=== PATIENT | female | born 1965 | race American Indian/Alaskan Native ===

== ENCOUNTER 2017-09-16 17:14 | Inpatient (IN) | payer BC, OTHER ==
[~2017-09-16] VITALS: Ht 165.1 cm; Wt 88.9 kg
[~2017-09-16 17:14] MED LIST: ASPIRIN EC81 MG PO; CALCIUM 500 +1 EAC1 PO; CITRUCEL479 GM PO; CITRUCEL500 MG PO; FISH OIL 1,0001 EAC2 PO; IBUPROFEN400 MG PO; LISINOPRIL10 MG PO; LOPERAMIDE2 M1; METFORMIN HCL500 MG PO; NORCO 10-325 T1 EACH PO; NORCO 5-325 TA1 EACH PO; OXYCODONE HCL5 MG PO; PROBIOTIC1 EAC1 PO; PROVERA10 MG PO; VITAMIN B122500 MCG PO; VITAMIN D5000 UNIT PO
--- NOTE | 2017-09-16 22:01 | NUR ---
PT ARRIVED ON FLOOR VIA STRETCHER AT 2104. PT ABLE TO INDEPENDANTLY AMBULATE TO THE BED FROM THE STRETCHER. PT ALERT AND ORIENTED X4. PLEASENT DEMEANOR. COMPLAINS OF PAIN "WHEN I FIRST SIT DOWN," OTHERWISE NO PAIN AT THIS TIME. NO NAUSEA. IV WNL, AND INFUSING FLUIDS. FAMILY ACCOMPANIED PT TO ROOM, BUT HAS SINCE GONE HOME. PT ORIENTED TO ROOM. UNDERSTANDS SHE IS NPO AND WHAT THAT CONSISTS OF. CALL LIGHT IN REACH.
--- NOTE | 2017-09-16 22:15 | NUR ---
RESUMED CARE OF PATIENT FROM [facility]. RECEIVED REPORT FROM [facility]. PATIENT IS RESTING IN BED WITH EYES CLOSED. BREATHING IS EVEN AND UNLABORED, RR 17. CALL LIGHTIN REACH.
--- NOTE | 2017-09-16 23:06 | NUR ---
STANDBY ASSISTED THE PATIENT TO THE BATHROOM AND BACK TO BED. WARM BLANKET GIVEN. CALL LIGHT WITHIN REACH.
--- NOTE | 2017-09-16 23:07 | NUR ---
UP AND DOWN DENTURE SOAK IN THE CONTAINER.
--- NOTE | 2017-09-17 00:34 | NUR ---
PATIENT DENIES ANY PAIN OR NAUSEA AT THIS TIME. PATIENT IS RESTING IN BED. CALL LIGHT IN REACH. NO FURTHER NEEDS NOTED AT THIS TIME.
--- NOTE | 2017-09-17 02:05 | NUR ---
PATIENTS VITALS TAKEN AND RECORDED. PATIENT RATES PAIN AT A 3/10 AND DENIES THE NEED FOR PAIN MEDICATION. PATIENT DENIES ANY NAUSEA AT THIS TIME. CALL LIGHT IN REACH.
--- NOTE | 2017-09-17 03:34 | NUR ---
PATIENT ASSISTED TO THE RESTROOM A SBA. PATIENT IS NOW BACK IN BED RESTING. PATIENT DENIES ANY NAUSEA. PATIENT RATES PAIN AT A 6/10. PRN PAIN MEDICATION GIVEN PER ORDER. PATIENT DENIES ANY FURTHER NEEDS AT THIS TIME. CALL LIGHT IN REACH.
--- NOTE | 2017-09-17 04:49 | NUR ---
PATIENT HAS RESTED WELL SINCE ARRIVING TO THE FLOOR. PATIENT HAS BEEN NPO SINCE ARRIVAL. PATIENT HAS DENIED ANY NAUSEA. PATIENT RECEIVED X1 PRN PAIN MEDICATION. PATIENT IS A SBA. PATIENT IS AAOX3. PATIEN HAS SCDS. PATIENT USES CALL LIGHT APPROPRIATELY.
--- NOTE | 2017-09-17 05:37 | NUR ---
PATIENTS MORNING VITALS TAKEN. PATIENT COMPLAINS OF A HEADACHE. PATIENT IS NPO AT THIS TIME. PATIENT GIVEN WET WASH RAG AND APPLIED TO FOREHEAD. PATIENT DENIES ANY ABD PAIN. PATIENT DENIES ANY NAUSEA. PATIENTS 0500 MEDICATIONS GIVEN PER ORDER. NO FURTHER NEEDS AT THIS TIME. CALL LIGHT IN REACH.
--- NOTE | 2017-09-17 09:50 | NUR ---
PT REPORTS NAUSEA. ZOFRAN GIVEN. ASSISTED UP TO BATHROOM TO VOID. NO VOID SINCE BEFORE 0600. WILL REASSESS.
--- NOTE | 2017-09-17 09:55 | NUR ---
PATIENT RESTING IN BED WATCHING TV. ORAL CARE DONE. HANDS AND FACE WASHED. WOULD LIKE TO SHOWER. CALL BUTTON IN REACH. FAMILY IN ROOM.
--- NOTE | 2017-09-17 10:45 | NUR ---
PATIENT UP TO SHOWER WITH HIBBA CLEANSE. LINENES CHANGED.
--- NOTE | 2017-09-17 11:14 | HP ---
[facility] [address], [place] [address] Signed ADMISSION DATE: 09/16/2017 REASON FOR ADMISSION: This 52-year-old Afghan woman, presented to the emergency room with right-sided abdominal pain. She was evaluated by Dr. Eid where she was found to have tenderness in the region of a right-sided mid-abdominal incision from ileostomy takedown by Dr. Pina in the past. This repair was done about three months ago. Further evaluation include gallbladder ultrasound, which showed large gallstones. On the consideration, this may more likely represent acute cholecystitis. She is admitted for further evaluation and care. It is notable that she had a rectal cancer diagnosed by Dr. Pina in 2014. She apparently was referred to [place], [place] for definitive management of a low rectal cancer. From what I can gather from her history, she had chemo and radiation neoadjuvant therapy, subsequently very low anterior resection with anastomosis and a protective ileostomy. She developed what sounds like she had takedown of the ileostomy by Dr. Pina. She developed a hernia at that site on the right abdomen, which was repaired by Dr. Pina on June 19, 2017, with implantation of Ventralex mesh. Notes from Dr. Pina reveal her operative intervention had included laparoscopic and transanal total proctectomy with hand-sewn coloanal anastomosis, mobilization of splenic flexure and protective loop ileostomy. There were seven regional lymph nodes all negative. She had later developed an umbilical and supraumbilical trocar site hernia, which was repaired and the right-sided ileostomy takedown site developed hernia, which Dr. Pina repaired as well. It is notable that the patient still has episodes of episodic incontinence. She uses loperamide and Citrucel. Currently, her pain is in the right upper abdomen and radiates to the back of it. She has no nausea or vomiting. Her evaluation included a normal white count of 5.0, hematocrit 34.8. A chemistry profile, which was essentially normal including normal liver enzymes and urinalysis, which was normal. 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 She is not and has no children. She lives in [place]. REVIEW OF SYSTEMS: She denies any shortness of breath or chest pain. She has had no dysphagia or dysuria. Denies any hematemesis or blood per rectum. Electronically Signed By: MEGA AGRAWAL MD 09/17/17 1114 PATIENT NAME: BRYANNA MAC HISTORY AND PHYSICAL DATE OF : 65 PHYSICIAN: MEGA AGRAWAL MD REPORT #: [id number] REPORT IS CONFIDENTIAL AND NOT TO BE RELEASED WITHOUT AUTHORIZATION [facility] [address], [place] [address] Signed PHYSICAL EXAMINATION: GENERAL: Obese Afghan woman, who looks to be in no severe distress at this time. HEENT: Trachea is midline. Mucous membranes are moist. CHEST: Clear. HEART: Regular. ABDOMEN: Obese, but soft. There is a supraumbilical healed incision with no associated hernia and a right mid-abdominal transverse incision, which shows no sign of infection. She has tenderness in the right subcostal area. EXTREMITIES: Show no clubbing, cyanosis, or edema. LABORATORY STUDIES: As described. Ultrasound performed at 7:15 last night confirms multiple gallstones in the gallbladder. Review of the images myself confirms a normal-appearing liver and gallbladder with stone and stone debris. ASSESSMENT: She has acute cholecystitis related to her gallstones. I have discussed with her the pathophysiology of the problem. I would recommend cholecystectomy. Laparoscopic approach would be preferred though depending on scar tissue and so forth she may require an open procedure. The risks of bleeding, infection, bile duct injury, need for open procedure and of course failure to cure her symptoms were reviewed in detail. As regard to her episodic fecal incontinence, further measures can be undertaken to improve that at a later time. MD ALYSON Wick/MODL /[id number] cc: Tamar Eid MD Electronically Signed By: MEGA AGRAWAL MD 09/17/17 1114 PATIENT NAME: BRYANNA MAC HISTORY AND PHYSICAL DATE OF : 65 PHYSICIAN: MEGA AGRAWAL MD REPORT #: [id number] REPORT IS CONFIDENTIAL AND NOT TO BE RELEASED WITHOUT AUTHORIZATION [facility] [address], [place] [address] Signed Shon Pina MD Electronically Signed By: MEGA AGRAWAL MD 09/17/17 1114 PATIENT NAME: BRYANNA MAC HISTORY AND PHYSICAL DATE OF : 65 PHYSICIAN: MEGA AGRAWAL MD REPORT #: [id number] REPORT IS CONFIDENTIAL AND NOT TO BE RELEASED WITHOUT AUTHORIZATION
--- NOTE | 2017-09-17 15:07 | NUR ---
09/17/17 Alissa7 Marilou Garay 1503-PATIENT ARRIVED TO PACU ON 6L MASK O2 SAT 100% PATIENT NONAROUSABLE. 4 LAP SITES TO ABDOMEN CDI STERI STRIPS CHANGED IN OR. 1505-ORAL AIRWAY REMOVED. PATIENT REACTIVE.
--- NOTE | 2017-09-17 15:46 | NUR ---
PATIENT BACK TO ROOM FROM OR. RN RECIEVING REPORT IN ROOM.
--- NOTE | 2017-09-17 15:52 | NUR ---
pt back to room 123 at 1545. lap sites x 4. pt is lethargic. will advance diet as tolerated.
--- NOTE | 2017-09-17 18:18 | NUR ---
LAP NIYA SURGERY TODAY. LAP SITES X4. PT NAUSEOUS AFTER SURGERY. EMESIS GREEN BILE 150CC. ICE CHIPS AT BEDSIDE. SBA-1PA. NOT OUT OF BED AFTER SURGERY. DUE TO VOID. FAMILY AT BEDSIDE. IVF @ 85.
--- NOTE | 2017-09-17 19:59 | NUR ---
RECEIVED REPORT FROM DAY SHIFT RN. PATIENT IS RESTINGIN BED. PATIENT DENIES PAIN OR NAUSEA. CALL LIGHT IN REACH.
--- NOTE | 2017-09-17 21:01 | NUR ---
PATIENT ASSESMENT COMPLETED. PATIENTS EVENING MEDICATIONS GIVEN PER ORDER. PATIENT RATES PAIN AT A 4/10. PATIENT GIVEN PRN MOTRIN PER ORDER. PATIENT HAS X4 LAP SITES. PATIENTS UPPER SITE HAS A SMALL AMOUNT OF DRAINAGE. SITE REINFORCED WITH GAUZE. PATIENT DENIES ANY NAUSEA. PATIENT PROVIDED WITH JELLO. PATIENT DENIES ANY NAUSEA. PATIENT HAS SCDS IN PLACE. PATIENT HAS GOOD URINE OUTPUT. PATIENT DENIES ANY FURTHER NEEDS. PATIENT IS AAOX3. PATIENTS CALL LIGHT IN REACH.
--- NOTE | 2017-09-17 23:05 | NUR ---
PATIENT IS RESTING IN BED WITH EYES CLOSED, RR 17. VIC LIGHT IN REACH.
--- NOTE | 2017-09-18 01:07 | NUR ---
PATIENT REQUESTED TO GET UP AND USE THE RESTROOM. PATIENT BECAME NAUSEOUS AND HAD A BOUT OF EMESIS. PATIENTS EMESIS TOLTALED 25ML. PATIENT GIVEN PRN NAUSEA MEDICATION PER ORDER. PATIENT IS REQUESTING TO WAIT TO GET UP AND USE THE RESTROOM. WILL CONTINUE TO MONITOR. CALL LIGHT IN REACH. PATIENT VERBALIZED SHE WILL CALL WHEN SHE IS READY.
--- NOTE | 2017-09-18 03:02 | NUR ---
PATIENT IS RESTING IN BED WITH EYES CLOSED, RR 18. CALL LIGHT IN REACH.
--- NOTE | 2017-09-18 05:17 | NUR ---
PATIENT RESTED WELL THROUGHOUT THE SHIFT. PATIENT RECEIVED MOTRIN X1 FOR PAIN. PATIENT DID HAVE EMESIS X2 FOR A TOTAL OUPUT OF 75ML. PATIENT IS A 1PA. PATIENT HAS SCDS IN PLACE. PATIENT HAS X4 LAP SITES AND UPPER SITE HAS A SMALL AMOUNT OF DRAINAGE AND IT WAS REINFORCED. PATIENT GIVEN PRN NAUSEA MEDICATION. PATIENT IS AAOX3. PATIENT WAS ABLE TO TOLERATE JELLO ONLY.
--- NOTE | 2017-09-18 06:36 | NUR ---
PATIENT ASSISTED TO THE RESTROOM. PATIENT IS A SBA. PATIENTS MORNING MEDICATIONS GIVEN PER ORDER. PATIENT REQUESTED THE MOTRIN. PATIENT GIVEN PRN MOTRIN PER ORDER. PATIENT DENIES ANY NAUSEA. PATIENTS X4 LAP SITES HAVE NO NEW DRAINAGE. PATIENT IS NOW BACK IN BED RESTING WITH SCDS IN PLACE. NO FURTHER NEEDS NOTED. CALL LIGHT ON REACH.
--- NOTE | 2017-09-18 07:35 | NUR ---
PATIENT UP TO CHAIR WITH ONE PERSON ASSIST. ORAL CARE AND LINEN CHANGE DONE. PATIENT WASHED HANDS AND FACE. PATIENT HAD EMESIS. RN IN ROOM. CALL BUTTON IN REACH.
--- NOTE | 2017-09-18 07:45 | NUR ---
PATIENT SITTING IN CHAIR. TOLERATED AMBULATION TO CHAIR. STATING THAT SHE IS FEELING NAUSEATED. HAVING 100MLS OF YELLOW EMESIS OUT. PATIENT C/O BURPING AND UPPER ABD PRESSURE. ZOFRAN GIVEN ON SANDBLAST OPERATOR. WASH CLOTHING GIVEN TO PATIENT. ORAL CARE DONE. CALLED DR. AGRAWAL FOR UPDATE ON PATIENT AND NEW ORDER FOR PHENERGAN.
--- NOTE | 2017-09-18 08:00 | NUR ---
PHENERGAN GIVEN. PATIENT STATING NAUSEA IS STILL THERE BUT SHE DOESNT FEEL LIKE SHE HAS ANYMORE TO VOMIT. ASSESSMENT COMPLETE. LAP SITES PRESENT. C/D/I. PIPE INSULATOR REINFORCED UPPER UMBILICOUS LAP SITE. SCD WHILE IN BED. BREAKFAST TO CHAIRSIDE IN WAIT OF NAUSEA TO IMPROVE.
--- NOTE | 2017-09-18 08:55 | NUR ---
PATIENT CURRENTLY RESTING WITH EYES CLOSED. RR EVEN UNLABORED. CALL LIGHT WITHIN REACH.
--- NOTE | 2017-09-18 09:37 | NUR ---
ASSISTED PATIENT FROM CHAIR TO BR AND BACK TO BED. TOLERATING TRANSFER WELL. NAUSEA HAS IMPROVED. PATIENT WAS ABLE TO EAT 100 PERCENT OF BREAKFASRT. PATIENT STATING PAIN CURRENTLY 5-6/10 GAVE 1 TAB OXY FOR PAIN. TOOK WITH CRACKERS FOR NAUSEA.
--- NOTE | 2017-09-18 09:58 | NUR ---
PATIENT RESTING IN BED WITH EYES CLOSED.
--- NOTE | 2017-09-18 11:28 | NUR ---
patient sleeping at this time. rr even and unlabored.
--- NOTE | 2017-09-18 11:45 | NUR ---
PATIENT AMBULATED ONE LAP IN GIRARD. TOLERATING AMBULATION WELL. ASSISTED TO CHAIR TO ORDER LUNCH.
--- NOTE | 2017-09-18 11:54 | OR ---
[facility] [address], [place] [address] Signed DATE OF OPERATION: 09/17/2017 SURGEON: Mega Agrawal MD PREOPERATIVE DIAGNOSES: 1. Acute calculous cholecystitis. 2. Morbid obesity. 3. History of very low anterior resection for rectal cancer in 2015. POSTOPERATIVE DIAGNOSIS: Severe acute calculous cholecystitis. PROCEDURES: 1. Laparoscopic cholecystectomy with intraoperative cholangiogram. 2. Surgeon-directed fluoroscopy. ANESTHESIA: General endotracheal, Ronaldo Gaetano, JEWELRY MAKING INSTRUCTOR and local 20 mL of 0.25% Marcaine with epinephrine. INDICATION: This 52-year-old obese woman was admitted last night through the emergency room with right upper abdominal pain. She has a distant history of low rectal carcinoma, initially evaluated by Dr. Pina, and referred to [facility] for definitive treatment including chemoradiation therapy, low anterior resection with diverting ileostomy, and ultimately takedown of the ileostomy. She has undergone two incisional hernia repairs, one in the supraumbilical area by Dr. Pina and the other in the site of the right-sided ileostomy. Her last operation was in June a year ago. She is noted to have right upper abdominal pain at this point and tenderness and an ultrasound of the gallbladder shows multiple gallstones. Her liver enzymes are normal. She is admitted to undergo cholecystectomy preferred by laparoscopic approach understanding the risks of bleeding, infection, bile duct injury, need for open procedure, and other unforeseen complications including retained gallstone, need for common duct exploration, and so on. I understand that she wished to proceed. FINDINGS: The gallbladder was tensed and markedly inflamed. The liver was normal. Cholecystectomy was performed without complication. Cholangiogram showed free flow of contrast in biliary tree with prompt emptying into the duodenum. There were few vague mid common duct areas that I initially thought may be stones, but with movement of the fluoroscope Electronically Signed By: MEGA AGRAWAL MD 09/18/17 3518 PATIENT NAME: BRYANNA MAC OPERATIVE REPORT DATE OF : 65 PHYSICIAN: MEGA AGRAWAL MD REPORT #: [id number] REPORT IS CONFIDENTIAL AND NOT TO BE RELEASED WITHOUT AUTHORIZATION [facility] [address], [place] [address] Signed and so forth, it appeared that this was merely the overlain of the base of the vertebra and not stone. Certainly, there was no mobility to this area at all. There was no impediment of flow into the common duct. The gallbladder once excised had multiple 8 mm or so gallstones and chronic inflammatory change of the mucosa. DESCRIPTION OF PROCEDURE: The patient was brought to the operating room and given a general endotracheal anesthetic. Preoperative antibiotic Ancef was given. Sequential compression device stockings used and heparin subcutaneously administered on table. The abdomen was prepared with a chlorhexidine solution after satisfactory general endotracheal anesthesia, and draped sterilely. An infraumbilical incision was made in mindful of a supraumbilical prior laparoscopic incision as well as a right mid abdomen ileostomy site with hernia repair using an open Martha cannula technique. The abdomen was entered. Pneumoperitoneum was achieved to a level of 14 mmHg of carbon dioxide gas. After the scope was placed and there were some omental adhesions to the anterior abdominal wall cephalad to the entry point, these were not in the way of further evaluation. Three additional trocars were placed in usual configuration in the subxiphoid, right midclavicular, and right anterior axillary line. Gallbladder was found to be markedly tense and distended and inflamed acutely. Gallbladder was elevated cephalad. Decompression was considered, but found not to be necessary. The infundibulum was quite fatty and using lateral retraction of the infundibulum, blunt electrocautery dissection was taken of the infundibulum ultimately identifying well the cystic duct. Cystic arterial branches were identified subsequently and later clipped and divided. Once the cystic duct was clearly identified, a clip was applied across gallbladder cystic duct junction. A transverse choledochotomy was made in the cystic duct and retrograde milking of the cystic duct showed clear slightly thickened bile. Using the Archuleta-type cholangiocatheter, intraoperative cholangiography was undertaken using surgeon-directed fluoroscopy. Free flow of contrast was noted into the biliary tree with prompt emptying into the duodenum. Retrograde filling to the common hepatic duct was noted and antegrade filling into the common bile duct proper was noted. Initially, there was thought to be possibly a vague filling defect or two. The camera angle was changed with some fluoroscope and it was deemed unlikely to have any stones or retained stone. More likely, the base of the vertebral bodies was overlapping the common duct and causing some distortion of that. The catheter was removed and the cystic duct was triply clipped and divided and the gallbladder dissected free in a retrograde fashion. Clips were applied to the cystic arterial branches as encountered. The gallbladder once excised was placed in an endobag and extracted through the infraumbilical port site without problem, opened on the back table, and found to have chronic inflammatory change of the mucosa and multiple small yellow multifaceted stones. There was no sign of neoplasm. Irrigation was undertaken in subhepatic space. Excess irrigation fluid suctioned free. There was no sign of bile leak, bleeding, or other problems. The trocars were removed under direct visualization showing no sign of bleeding. The infraumbilical fascial incision was Electronically Signed By: MEGA AGRAWAL MD 09/18/17 1154 PATIENT NAME: BRYANNA MAC OPERATIVE REPORT DATE OF : 65 PHYSICIAN: MEGA AGRAWAL MD REPORT #: [id number] REPORT IS CONFIDENTIAL AND NOT TO BE RELEASED WITHOUT AUTHORIZATION [facility] [address], [place] [address] Signed reapproximated with interrupted 0 Vicryl suture. All wounds were copiously irrigated with saline solution. Skin closed with interrupted 3-0 Vicryl. A 20 mL of 0.25% Marcaine with epinephrine had been injected into the fascial layer prior to skin closure. Steri-Strips were applied. The patient was ultimately extubated and transferred to recovery room in good condition having suffered no complication. Sponge, needle, and counts reported as correct x3. MD ALYSON Wick/MODL /[id number] cc: MD Kera Senior PA Kelly Dean Pridgen, MD Electronically Signed By: MEGA AGRAWAL MD 09/18/17 1154 PATIENT NAME: BRYANNA MAC OPERATIVE REPORT DATE OF : 65 PHYSICIAN: MEGA AGRAWAL MD REPORT #: [id number] REPORT IS CONFIDENTIAL AND NOT TO BE RELEASED WITHOUT AUTHORIZATION
--- NOTE | 2017-09-18 11:55 | NUR ---
PATIENT AMBULATING IN [facility] WITH RN.
--- NOTE | 2017-09-18 12:45 | NUR ---
PATIENT SITTING UP IN CHAIR FINISHING LUNCH. INTO SEE PATIENT. FRESH ICE WATER GIVEN. NO OTHER NEEDS AT THIS TIME.
--- NOTE | 2017-09-18 12:54 | NUR ---
ROUNDED WITH DR. AGRAWAL IN ROOM. DUE TO NAUSEA THIS AM PLAN TO HOLD DISCHARGE UNTIL TOMORROW.PATIENT TOLERATED LUNCH AT THIS TIME... GOING SLOW. MOTRIN GIVEN FOR PAIN. FRIENDS IN ROOM. WORK RELEASE FORM PLACED ON CHART FOR TOMORROW.
--- NOTE | 2017-09-18 14:12 | NUR ---
PATIENT RESTING IN BED NO NEEDS AT THIS TIME. CALL BUTTON IN REACH.
--- NOTE | 2017-09-18 16:55 | NUR ---
patient ambulated in [place]. tolerating well. no nausea at this time. assisted back to bed.
--- NOTE | 2017-09-18 16:56 | NUR ---
patient doing better this afternoon. nausea treated with morning with phenergan. since then no nausea. oxycodone for pain ( 1 tab). patient has active bs. tolerating regular diet. lap sites remain c/d/i. after current iv fluid bag patient can be sl. scds in place. plan to go home tomorrow afternoon. patient has ambulated in the [place] multiple times with a stby assist. voiding well.
--- NOTE | 2017-09-18 18:10 | NUR ---
PATIENT RESTING IN BED WATCHING TV. FRESH ICE WATER GIVEN. PATIENT RATES HER PAIN A 5 OUT OF 10. PATIENT WANTS TO WAIT TO TAKE ANY MEDICATION AT THIS TIME.
--- NOTE | 2017-09-18 19:47 | NUR ---
RECEIVED REPORT FROM DAY SHIFT RN. PATIENT IS RESTING IN BED VISITING WITH FAMFELICE. NO NEEDS AT THIS TIME. CALL LIGHT IN REACH.
--- NOTE | 2017-09-18 20:30 | NUR ---
PATIENT ASSESMENT COMPLETED. PATIENTS EVENING MEDICATIONS GIVEN PER ORDER. PATIENT RATES PAIN AT A 5/10. PATIENT GIVEN PRN PAIN MEDICATION PER ORDER. PATIENT DENIES ANY NAUSEA AT THIS TIME. PATIENTS DRESSING ARE C/D/I. PATIENT ASSISTED TO THE RESTROOM. PATIENT IS A SBA AND IS STEADY ON HER FEET. PATIENT IS BACK IN BED RESTING. SCDS IN PLACE. PATIENT IS NOW SL. PATIENTS URINE OUTPUT IS QS. PATIENT DENIES ANY FURTHER NEEDS AT THIS TIME. CALL LIGHT IN REACH.
--- NOTE | 2017-09-18 22:15 | NUR ---
PATIENT IS RESTING IN BED WITH EYES CLOSED. BREATHING IS EVEN ADN UNLABORED, RR 18
--- NOTE | 2017-09-19 00:12 | NUR ---
PATIENT ASSISTED TO THE RESTROOM. PATIENT RATES THE PAIN AT A 2/10. PATIENT DENIES THE NEED FOR PAIN MEDICATION AT THIS TIME. PATIENT IS NOW BACK IN BED RESTING. SCDS IN PLACE AND CALL LIGHT IN REACH.
--- NOTE | 2017-09-19 02:25 | NUR ---
PATIENT IS RESTING IN BED WITH EYES CLOSED, RR 17
--- NOTE | 2017-09-19 04:48 | NUR ---
PATIENT CALLED AND REQUESTED FRESH ICE WATER. PATIENT IS RESTING IN BED. PATIENT RATES PAIN AT A 2/10. PATIENT STATED "IT IS FINE WHEN I AM LAYING HERE" PATIENT DENIES THE NEED FOR PAIN MEDICATION. PATIENT DENIES ANY NAUSEA. PATIENT DENIES ANY FURTHER NEEDS. CALL LIGHT IN REACH.
--- NOTE | 2017-09-19 05:33 | NUR ---
PATIENT RESTED WELL THROUGHOUT THE SHIFT. PATIENT RECEIVED PRN PAIN MEDICATION X1. PATIENT DENIED ANY NAUSEA. PATIENT IS A SBA AND IS STEADY ON HER FEET. PATIENT HAS X4 LAP SITES, NO NEW DRAINAGE NOTED. PATIENT IS SL AND IV FLUSHES WELL. PATIENT HAS SCDS IN PLACE. PATIENT USES CALL LIGHT APPROPRIATELY.
--- NOTE | 2017-09-19 06:05 | NUR ---
PATIENTS CHEDULED MORNING MEDICATIONS GIVEN PER ORDER. PATIENT RATES PAIN AT A 6/10. PATIENT GIVEN PRN PAIN MEDICATION PER ORDER. PATIENT DENIES ANY NAUSEA. PATIENT DENIES ANY NAUSEA. PATIENT DENIES ANY FURTHER NEEDS AT THIS TIME. SCDS IN PLACE. CALL LIGHT IN REACH.
--- NOTE | 2017-09-19 11:06 | NUR ---
IN TO ROOM TO ASSESS PATIENT. PATIENT JUST GOT OUT OF THE SHOWER. PATIENT SITTING IN BED, REPORTED VERY MINIMAL PAIN. DENIED THE NEED FOR PAIN MEDS. PATIENT EDUCATED ABOUT PAIN CONTROL. SHIFT ASSESSMENT COMPLETED. PATIENT DENIED NAUSEA AT THIS TIME. 4 LAPS SITE WNL. NO DRAINAGE. ACTIVE BOWEL TONE. SKIN WARM AND INTACT EXCEPT LAPS SITES AND OLD SCARS FROM PAST SURGERY. IV SITE PATENT AND FLUSHED WELL. CALL LIGHT AND PERSONAL BELONGING WITHIN REACH.
--- NOTE | 2017-09-19 11:57 | NUR ---
PATIENT SITTING UP IN CHAIR EATING HER LUNCH. CHANGED BED LINENS.
--- NOTE | 2017-09-19 12:25 | NUR ---
PATIENT SITTING IN BED EATING LUNCH. DENIED ANY PAIN OR NAUSEA AT THIS TIME. WILL CONTINUE TO MONITOR.
--- NOTE | 2017-09-19 13:31 | NUR ---
PATIENT RESTIING IN THE CHAIR REPORTS 7/10 ABD PAIN. PATIENT WILL BE MEDICATED. DENIES NAUSEA AT THIS TIME. TOLERATED FOOD WELL.
--- NOTE | 2017-09-19 14:56 | NUR ---
PATIENT RESTING IN BED REPORTS RELIEF OF HER PAIN. DENIES NAUSEA. PLAN TO AMBULATE.
[2017-09-19] MEDS ORDERED: MAPAP325 MG PO (15:14)
[2017-09-19] MEDS ORDERED: OXYCODON-ACETA1 EAC2 PO (15:14)
[2017-09-19] MEDS ORDERED: IBUPROFEN600 MG PO (15:14)
--- NOTE | 2017-09-19 16:19 | NUR ---
PATIENT AND I WALKED 2 LAPS AROUND MED SURG. NOW SHE IS GETTING DRESSED.
== END 2017-09-19 18:05 | disposition home or self-care (01) | DRG 419 ==
LOC: ED 17:14 → MS 17:16
PROVIDERS: ADMIT Surgery
PROC: BF12YZZ Fluoroscopy of Gallbladder using Other Contrast (ICD-10-PCS; 2017-09-17)
PROC: 0FT44ZZ Resection of Gallbladder, Percutaneous Endoscopic Approach (ICD-10-PCS; principal; 2017-09-17 11:45)
DX: K80.00 Calculus of gallbladder with acute cholecystitis without obstruction (principal); E66.01 Morbid (severe) obesity due to excess calories
CPT/HCPCS: 00790; 74300; 76705; 80053; 81001; 83690; 85025; 96374; 96375; 96376; 99285; G0378; J0690; J1170; J1644; J1885; J2250; J2405; J2550; J3010; J7120; Q9967

== ENCOUNTER 2020-02-23 20:53 | Emergency (ER) | payer BC, OTHER ==
[~2020-02-23] VITALS: Ht 165.1 cm; Wt 93.4 kg
--- OUTSIDE RECORDS SUMMARY | ~2020-02-23 | XMS | Encounter Summary ---
Demographics + + + | Address | [address] [facility] [address] | | | [place] [address] | + + + | Home Phone | | + + + | Preferred Language | Unknown | + + + | Marital Status | Single | + + + | Catholic Affiliation | 1041 | + + + | Race | Unknown | + + + | Ethnic Group | Unknown | + + + Author + + + | Author | [facility] | | | and [place] | + + + | Organization | [facility] | | | and [place] | + + + | Address | Unknown | + + + | Phone | Unavailable | + + + Support + + +---------+ + | Name | Relationship | Address | Phone | + + +---------+ + | Samanta Stephenson | ECON | Unknown | | + + +---------+ + Care Team Providers + +------+ + | Care Supervisor Body Assembly Name | Role | Phone | + +------+ + | Cindy Miramontes MD | PCP | | + +------+ + Reason for Visit +--------+ + | Reason | Comments | +--------+ + | Other | | +--------+ + Encounter Details +--------+ + + + + | Date | Type | Department | Care Team | Description | +--------+ + + + + | 03/29/ | Telephone | [facility] | Frida Oquenod | Other | | 2014 | | [facility] | MD Alanis [address] | | | | | ONCOLOGY [address] [place], [place] | | | | | [place], | [address] | | | | | [place] [address] | | | | | | [phone] | | | +--------+ + + + + Social History + + + +--------+------+ | Tobacco Use | Types | Packs/Day | Years | Date | | | | | Used | | + + + +--------+------+ | Former Smoker | Cigarettes | | | | + + + +--------+------+ + +---+---+---+ | Smokeless Tobacco: | | | | | Never Used | | | | + +---+---+---+ + + | Comments: Pt in here life time has only smoked a pack, and workinks in a cacino | + + + + +---------+ + | Alcohol Use | Drinks/Week | oz/Week | Comments | + + +---------+ + | Yes | | | | + + +---------+ + + + + | Sex Assigned at | Date Recorded | | | | + + + | Not on file | | + + + + + + + | Job Start Date | Occupation | Industry | + + + + | Not on file | Not on file | Not on file | + + + + + + + + | Travel History | Travel Start | Travel End | + + + + + + | No recent travel history available. | + + documented as of this encounter Plan of Treatment Not on filedocumented as of this encounter Visit Diagnoses Not on filedocumented in this encounter"
--- OUTSIDE RECORDS SUMMARY | ~2020-02-23 | XMS | Encounter Summary ---
Demographics + + + | Address | [address] [facility] [address] | | | [place] [address] | + + + | Home Phone | | + + + | Preferred Language | Unknown | + + + | Marital Status | Single | + + + | Taoist Affiliation | 1041 | + + + | Race | Unknown | + + + | Ethnic Group | Unknown | + + + Author + + + | Author | [facility] | | | and [place] | + + + | Organization | [facility] | | | [...] Team Providers + +------+ + | Care Special Police Name | Role | Phone | + +------+ + | Cindy Miramontes MD | PCP | | + +------+ + Reason for Referral Diagnostic/Screening (Routine) +--------+--------+ + + + + | Status | Reason | Specialty | Diagnoses / | Referred By | Referred To | | | | | Procedures | Contact | Contact | +--------+--------+ + + + + | Closed | | Radiology | Diagnoses | Azra, | [address] | | | | | Rectal | Frida Thapa | Breann Baugh | | | | | cancer (HCC) | MD [address] | [place], | | | | | Procedures | [address] | [place] [address] | | | | | CT | [place], | Phone: | | | | | Treatment | [place] [address] | [phone] | | | | | Plan Complex | Phone: | Fax: | | | | | CHG | [phone] | [phone] | | | | | RESPIRATORY | Fax: | | | | | | MOTION | [phone] | | | | | | MANAGEMENT | | | | | | | SIMULATION | | | +--------+--------+ + + + + Reason for Visit Auth/Cert +--------+--------+ + + + + | Status | Reason | Specialty | Diagnoses / | Referred By | Referred To | | | | | Procedures | Contact | Contact | +--------+--------+ + + + + | Closed | | Radiology | | | [address] | | | | | | | [address] | | | | | | | [place], | | | | | | | [place] [address] | | | | | | | Phone: | | | | | | | [phone] | | | | | | | Fax: | | | | | | | [phone] | +--------+--------+ + + + + Encounter Details +--------+ + + + + | Date | Type | Department | Care Team | Description | +--------+ + + + + | 08/05/ | [facility] | [facility] | Frida Oquendo | Rectal cancer (HCC) | | 2013 | Encounter | MED [facility] [address] | MD Alanis [address] | | | | | [place], | [place], [place] | | | | | [place] [address] | [address] | | | | | [phone] | | | +--------+ + + + [...] + + documented as of this encounter Medications at Time of Discharge + + + +---------+--------+ + | Medication | Sig | Dispensed | Refills | Start | End Date | | | | | | Date | | + + + +---------+--------+ + | aspirin 81 mg | Take 81 mg by mouth | | 0 | | | | chewable tablet | Daily. | | | | | + + + +---------+--------+ + | CHOLECALCIFEROL | 1,000 Units by Does | | 0 | | | | | not apply route. | | | | | + + + +---------+--------+ + | OMEGA 3 1000 MG | Take by mouth. | | 0 | | | | CAPS | | | | | | + + + +---------+--------+ + | FERROUS SULFATE | by Does not apply | | 0 | | | | | route. 300mg/5ml | | | | 5 | | | syrup | | | | | + + + +---------+--------+ + | LISINOPRIL PO | Take 10 mg by mouth. | | 0 | | | | | | | | | 6 | + + + +---------+--------+ + | | Take 10 mg by mouth | | 0 | | | | medroxyPROGESTERone | Daily. | | | | 5 | | (PROVERA) 10 mg | | | | | | | tablet | | | | | | + + + +---------+--------+ + | metFORMIN | Take 500 mg by mouth | | 0 | | | | (GLUCOPHAGE) 500 mg | 2 times daily (with | | | | 5 | | tablet | breakfast & | | | | | | | dinner). | | | | | + + + +---------+--------+ + documented as of this encounter Plan of Treatment Not on filedocumented as of this encounter Procedures + +--------+ + + + | Procedure Name | Priori | Date/Time | Associated Diagnosis | Comments | | | ty | | | | + +--------+ + + + | CT TREATMENT PLAN | Routin | 08/05/2014 | Rectal cancer | Results for this | | COMPLEX | e | 11:49 AM | (HCC) | procedure are in the | | | | PDT | | results section. | + +--------+ + + + documented in this encounter Results CT Treatment Plan Complex (08/05/2014 11:49 AM PDT) + + | Specimen | + + | | + + + + + | Narrative | Performed At | + + + | No Radiologist interpretation, please see Chart Review. | [facility] | + + + + + | Procedure Note | + + | 08/05/2014 11:53 AM PDT No Radiologist interpretation, please see Chart Review. | + + + +---------+ + + | Performing | Address | City/State/Zipcode | Phone Number | | Organization | | | | + +---------+ + + | [facility] | | | | + +---------+ + + documented in this encounter Visit Diagnoses + + | Diagnosis | + + | Rectal cancer (HCC) Malignant neoplasm of rectum | + + documented in this encounter Administered Medications + +--------+ +--------+------+------+ | Medication Order | MAR | Action | Dose | Rate | Site | | | Action | Date | | | | + +--------+ +--------+------+------+ | iohexol (OMNIPAQUE 350) 350 | Given | 08/05/20 | 85 mLs | | | | mg/mL injection 85 mL 85 mL, | | 14 11:49 | | | | | Intravenous, ONCE PRN, Other, | | AM PDT | | | | | Starting [facility] 08/05/14 at 1134, | | | | | | | For 1 dose, Cat Scanner | | | | | | + +--------+ +--------+------+------+ +---+---+ | | | +---+---+ documented in this encounter"
--- OUTSIDE RECORDS SUMMARY | ~2020-02-23 | XMS | Encounter Summary ---
Demographics + + + | Address | [address] [facility] [address] | | | [place] [address] | + + + | Home Phone | | + + + | Preferred Language | Unknown | + + + | Marital Status | Single | + + + | Amish Affiliation | 1041 | + + + | Race | Unknown | + + + | Ethnic Group | Unknown | + + + Author + + + | Author | [facility] | | | and [place] | + + + | Organization | [facility] | | | and [...] Team Providers + +------+ + | Care Concert Singer Name | Role | Phone | + +------+ + | Cindy Miramontes MD | PCP | | + +------+ + Encounter Details +--------+ + + + + | Date | Type | Department | Care Team | Description | +--------+ + + + + | 01/19/ | [facility] | [facility] | Wing Frank | Rectal cancer (HCC) | | 2015 | Encounter | MED CTR MEDICAL | MD Casimiro [address] | (Primary Dx) | | | | ONCOLOGY CLINIC [address] | [address] [place] | | | | | [address] [place] | [place] [address] | | | | | [place] [address] | [phone] | | | | | [phone] | | | +--------+ + + + [...] + + documented as of this encounter Last Filed Vital Signs + + + + + | Vital Sign | Reading | Time Taken | Comments | + + + + + | Blood Pressure | 90/62 | 01/19/2015 4:15 PM | | | | | PDT | | + + + + + | Pulse | 83 | 01/19/2015 4:15 PM | | | | | PDT | | + + + + + | Temperature | 36.3 C (97.3 F) | 01/19/2015 4:15 PM | | | | | PDT | | + + + + + | Respiratory Rate | - | - | | + + + + + | Oxygen Saturation | 100% | 01/19/2015 4:15 PM | | | | | PDT | | + + + + + | Inhaled Oxygen | - | - | | | Concentration | | | | + + + + + | Weight | 101.1 kg (222 lb | 01/19/2015 4:23 PM | | | | 14.2 oz) | PDT | | + + + + + | Height | - | - | | + + + + + | Body Mass Index | 36.69 | 08/03/2014 11:14 AM | | | | | PDT | | + + + + + documented in this encounter Medications at Time of Discharge + + + +---------+ + + | Medication | Sig | Dispensed | Refills | Start | End Date | | | | | | Date | | + + + +---------+ + + | aspirin 81 mg | Take 81 mg by mouth | | 0 | | | | chewable tablet | Daily. | | | | | + + + +---------+ + + | CHOLECALCIFEROL | 1,000 Units by Does | | 0 | | | | | not apply route. | | | | | + + + +---------+ + + | Loperamide HCl | Take by mouth. | | 0 | | | | (IMODIUM PO) | | | | | | + + + +---------+ + + | OMEGA 3 1000 MG | Take by mouth. | | 0 | | | | CAPS | | | | | | + + + +---------+ + + | capecitabine | Take four tablets by | 80 | 5 | 01/20/20 | | | (XELODA) 500 mg | mouth two times | tablet | | 15 | 5 | | tabletIndications: | daily for ten days. | | | | | | Rectal cancer (HCC) | Then stop taking for | | | | | | | next 11 days | | | | | + + + +---------+ + + | ibuprofen | Take 600 mg by mouth | | 0 | | | | (ADVIL,MOTRIN) 600 | every 6 hours as | | | | 7 | | MG tablet | needed. | | | | | + + + +---------+ + + | LISINOPRIL PO | Take 10 mg by mouth. | | 0 | | | | | | | | | 6 | + + + +---------+ + + | metFORMIN | Take 500 mg by mouth | | 0 | | | | (GLUCOPHAGE) 500 mg | 2 times daily (with | | | | 5 | | tablet | breakfast & | | | | | | | dinner). | | | | | + + + +---------+ + + | non-formulary | Citracel | | 0 | | | | medication | | | | | 7 | + + + +---------+ + + | ondansetron | Take one tablet | 20 | 3 | 08/17/20 | | | (ZOFRAN) 8 MG | every 8 hours as | tablet | | 14 | 5 | | tabletIndications: | needed for nausea | | | | | | Rectal cancer (HCC) | | | | | | + + + +---------+ + + | oxyCODONE (OXY-IR) | Take 5 mg by mouth | | 0 | | | | 5 MG capsule | every 4 hours as | | | | 5 | | | needed. | | | | | + + + +---------+ + + documented as of this encounter Progress Notes Jen Doherty CMA - 01/19/2015 4:20 PM PDTREVIEW OF SYSTEMS Constitutional: Pt reports fatigue.. Denies high fevers, shaking chills, anorexia, nausea, vomiting, weight loss, or night sweats. Appetite without changes. Ear, Nose, Mouth, Throat: Denies odynophagia, dysphagia, or tinnitus. Cardiovascular: Denies shortness of breath, dyspnea on exertion, chest pain, palpitations o r orthopnea. Respiratory: Denies cough, hemoptysis, or sputum production. Gastrointestinal: Denies abdominal pain, constipation, diarrhea, melena, or bright red bloo d per rectum. Genitourinary: Denies hematuria or dysuria. Musculoskeletal: Denies joint pain or tenderness. Neurologic: Pt reports having a few days of headaches. Denies visual changes. Pt reports n umbness/tingling in the extremities the hands just started Endocrine: Denies peripheral edema or heat/cold intolerance. Hematologic: Denies spontaneous bruising or bleeding. Integumentary: Denies rash, wounds or other skin concerns. Pain: Denies pain. Note: Pt is here for follow up. My chart: documented in this encounter Plan of Treatment Not on filedocumented as of this encounter Visit Diagnoses + + | Diagnosis | + + | Rectal cancer (HCC) - Primary Malignant neoplasm of rectum | + + documented in this encounter"
--- OUTSIDE RECORDS SUMMARY | ~2020-02-23 | XMS | Encounter Summary ---
Demographics + + + | Address | [address] [facility] [address] | | | [place] [address] | + + + | Home Phone | | + + + | Preferred Language | Unknown | + + + | Marital Status | Single | + + + | Sikhism Affiliation | 1041 | + + + | Race | Unknown | + + + | Ethnic Group | Unknown | + + + Author + + + | Author | [facility] | | | and [place] | + + + | Organization | [facility] | | | and [...] Team Providers + +------+ + | Care Warm In Worker Name | Role | Phone | + +------+ + | Cindy Miramontes MD | PCP | | + +------+ + Reason for Visit Evaluate & Treat (Routine) +--------+--------+ + + + + | Status | Reason | Specialty | Diagnoses / | Referred By | Referred To | | | | | Procedures | Contact | Contact | +--------+--------+ + + + + | Closed | | Oncology | Diagnoses | Kulwinder, | Monika, | | | | | Malignant | MD Cindy | Wing | | | | | neoplasm of | [address] | MD Casimiro | | | | | rectum (HCC) | [address] [place] | [address] | | | | | Procedures | [place], [place] | [place] | | | | | IN OFFICE | [address] | [facility] [place] | | | | | OUTPATIENT | Phone: | [phone] Phone: | | | | | VISIT 25 | [phone] | [phone] | | | | | MINUTES | Fax: | Fax: | | | | | | [phone] | [phone] | +--------+--------+ + + + + Encounter Details +--------+ + + + + | Date | Type | Department | Care Team | Description | +--------+ + + + + | 09/13/ | Hospital | [facility] | Wing Frank | Rectal cancer (HCC) | | 2013 | Encounter | [facility] | MD Casimiro [address] | (Primary Dx) | | | | ONCOLOGY CLINIC [address] | [address] [place] | | | | | [address] [place] | [place] [address] | | | | | [place] [address] | [phone] | | | | | [phone] | | | +--------+ + + + [...] + + + | Blood Pressure | 130/78 | 09/13/2014 3:37 PM | | | | | PST | | + + + + + | Pulse | 104 | 09/13/2014 3:37 PM | | | | | PST | | + + + + + | Temperature | 36.9 C (98.4 F) | 09/13/2014 3:37 PM | | | | | PST | | + + + + + | Respiratory Rate | 18 | 09/13/2014 3:37 PM | | | | | PST | | + + + + + | Oxygen Saturation | 99% | 09/13/2014 3:37 PM | | | | | PST | | + + + + + | Inhaled Oxygen | - | - | | | Concentration | | | | + + + + + | Weight | 105.5 kg (232 lb 9.4 | 09/13/2014 3:37 PM | | | | oz) | PST | | + + + + + | Height | - | - | | + + + + + | Body Mass Index | 38.29 | 08/03/2014 11:14 AM | | | [...] +---------+ + + | capecitabine | Take 4 tablets by | 200 | 0 | 08/06/20 | | | (XELODA) 500 mg | mouth 2 times daily. | tablet | | 14 | 4 | | tabletIndications: | To be taken twice | | | | | | Rectal cancer (HCC) | daily Mon thru Fri | | | | | | | from start to finish | | | | | | | of radiation | | | | | | | course. | | | | | + + + +---------+ + + | FERROUS SULFATE | by Does [...] + + + +---------+ + + | | Take 10 mg by [...] + + + +---------+ + + | polyethylene | Take 17 g by mouth | | 0 | | | | glycol (MIRALAX) | Daily. | | | | 5 | | packet | | | | | | + + + +---------+ + + | polyethylene | Mix 17grams into 4-8 | 255 g | 0 | 08/31/20 | | | glycol (MIRALAX) | oz of juice or | | | 14 | 5 | | powder | water and take by | | | | | | | mouth once daily as | | | | | | | needed for | | | | | | | constipation | | | | | + + + +---------+ + + documented as of this encounter Progress Notes Wing Frank MD - 09/13/2014 4:01 PM PSTFormatting of this note might be diff erent from the original. Patient is a 49 y.o. female seen today, 09/13/2014, for chemotherapy with capecitabine for r ectal carcinoma. Today is day 1/week 6 of therapy. Patient complaints: rectal bleeding, lightheadedness Symptoms are gradually worsening during the past 24 hours. Advance Directives: not addressed Appropriate portions of the patient's past medical, surgical, family, and social history we re reviewed and updated. Review of Systems Constitutional: Pt states fatigue., and ongoing nausea. Denies high fevers, shaking chills, anorexia, nausea, vomiting, weight loss, or night sweats. Appetite without changes. Ear, Nose, Mouth, Throat: Denies odynophagia, dysphagia, or tinnitus. Cardiovascular: Pt states shortness of breath, dyspnea on exertion. Denies chest pain, palp itations or orthopnea. Respiratory: Denies cough, hemoptysis, or sputum production. Pt report having a bowel movement and had two days of hemorrhaging with blood clot s , today she reports slight blood .Genitourinary: Denies hematuria.Pt reports dysuria, this is ongoing for a week. Musculoskeletal: Denies joint pain or tenderness. Neurologic: Pt reports frequent headache. Denies visual changes. Pt reports numbness/tingli ng of the extremities. Endocrine: Denies peripheral edema or heat/cold intolerance.Pt has mild edema the right leg below the knee. Hematologic: Denies spontaneous bruising or bleeding. Integumentary: Denies rash, wounds or other skin concerns. Pain: Denies pain. Objective: BP 130/78 | Pulse 104 | Temp 36.9 C (98.4 F) (Tympanic) | Resp 18 | Wt 105.5 kg (232 lb 9.4 oz) | SpO2 99% General appearance: alert, appears stated age, cooperative, fatigued and no distress Data Review CBC: Lab Results Component Value Date WBC 4.9 09/13/2014 RBC 4.39 09/13/2014 BMP: Lab Results Component Value Date CO2 22* 08/05/2014 BUN 15 08/05/2014 CALCIUM 9.7 08/05/2014 Assessment: Active Problems: 1. Rectal cancer (HCC) Plan: The patient has a documented plan of care to address pain. Reassurance to patient and encouragement that she is generally tolerating treatments well. She should continue on [place] cytidine on a Saturday through Saturday basis Discussion concerning supportive care with encouragement to begin oral rehydration solution s particularly during times of orthostatic lightheadedness. We discussed how diarrhea in pa rticular a provocative for loss of body mineral electrolyte balance Recommendation to hold aspirin in the wake of patient's rectal bleeding. At this point pro bably okay to continue ibuprofen on an as-needed basis for pain particularly in the feet. One-week followup. Wing Frank Julee Sloan CMA - 09/13/2014 3:41 PM PSTREVIEW OF SYSTEMS Constitutional: Pt states fatigue., and ongoing nausea. Denies high fevers, shaking chills , anorexia, nausea, vomiting, weight loss, or night sweats. Appetite without changes. Ear, Nose, Mouth, Throat: Denies odynophagia, dysphagia, or tinnitus. Cardiovascular: Pt states shortness of breath, dyspnea on exertion. Denies chest pain, pal pitations or orthopnea. Respiratory: Denies cough, hemoptysis, or sputum production. Pt report having a bowel movement and had two days of hemorrhaging with blood cl ots , today she reports slight blood .Genitourinary: Denies hematuria.Pt reports dysuria, this is ongoing for a week. Musculoskeletal: Denies joint pain or tenderness. Neurologic: Pt reports frequent headache. Denies visual changes. Pt reports numbness/tingl ing of the extremities. Endocrine: Denies peripheral edema or heat/cold intolerance.Pt has mild edema the right leg below the knee. Hematologic: Denies spontaneous bruising or bleeding. Integumentary: Denies rash, wounds or other skin concerns. Pain: Denies pain. Note:Pt is having rectal pain today, and rates the pain at a 2-3 on a pain scale from 0-10 , this is with preparation H and with out this pt rates the pain charlene 5. My chart: documented in this encounter Plan of Treatment Not on filedocumented as of this encounter Procedures + +--------+ + + + | Procedure Name | Priori | Date/Time | Associated Diagnosis | Comments | | | ty | | | | + +--------+ + + + | CBC W/AUTO | STAT | 09/13/2014 | Rectal cancer | Results for this | | DIFFERENTIAL | | 3:30 PM | (HCC) | procedure are in the | | | | PST | | results section. | + +--------+ + + + documented in this encounter Results CBC w/ Auto Differential (09/13/2014 3:30 PM PST) + + + + + + | Component | Value | Ref Range | Performed | Pathologist | | | | | At | Signature | + + + + + + | WBC | 4.9 | 4.0 - 11.0 K/uL | [facility] | | | | | [facility] | | | | | | [facility] | | [facility] - | | | | | | LABORATORY | | + + + + + + | RBC | 4.39 | 3.70 - 5.20 | [facility] | | | | | M/uL | [facility] | | | | | | [facility] | | | | | | [facility] - | | | | | | LABORATORY | | + + + + + + | Hemoglobin | 12.9 | 11.5 - 16.0 | [facility] | | | | | g/dL | [facility] | | | | | | [facility] | | | | | | [facility] - | | | | | | LABORATORY | | + + + + + + | Hematocrit | 37.5 | 34.0 - 47.0 % | [facility] | | | | | | [facility] | | | | | | [facility] | | | | | | [facility] - | | | | | | LABORATORY | | + + + + + + | MCV | 85.4 | 83.0 - 101.0 fL | [facility] | | | | | | [facility] | | | | | | [facility] | | | | | | [facility] - | | | | | | LABORATORY | | + + + + + + | MCH | 29.4 | 28.0 - 35.0 pg | [facility] | | | | | | [facility] | | | | | | [facility] | | | | | | [facility] - | | | | | | LABORATORY | | + + + + + + | MCHC | 34.4 | 32.0 - 36.0 | [facility] | | | | | g/dL | [facility] | | | | | | [facility]ICAL | | | | | | CENTER - | | | | | | LABORATORY | | + + + + + + | RDW-CV | 14.7 | <15.0 % | [facility] | | | | | | [facility] | | | | | | [facility] | | | | | | [facility] - | | | | | | LABORATORY | | + + + + + + | Platelet | 167 | 140 - 440 K/uL | [facility] | | | Count | | | [facility] | | | | | | [facility]ICAL | | | | | | CENTER - | | | | | | LABORATORY | | + + + + + + | MPV | 7.4 | fL | [facility] | | | | | | [facility] | | | | | | [facility]ICAL | | | | | | CENTER - | | | | | | LABORATORY | | + + + + + + | % | 69.8 | 45.0 - 82.0 % | [facility] | | | Neutrophils | | | [facility] | | | | | | MEDICAL | | | | | | CENTER - | | | | | | LABORATORY | | + + + + + + | % | 14.0 (L) | 20.0 - 45.0 % | [facility] | | | Lymphocytes | | | [facility] | | | | | | MEDICAL | | | | | | CENTER - | | | | | | LABORATORY | | + + + + + + | % Monocytes | 12.0 | 4.0 - 12.0 % | [facility] | | | | | | [facility] | | | | | | MEDICAL | | | | | | CENTER - | | | | | | LABORATORY | | + + + + + + | % | 3.8 | 0.0 - 5.0 % | [facility] | | | Eosinophils | | | [facility] | | | | | | MEDICAL | | | | | | CENTER - | | | | | | LABORATORY | | + + + + + + | % Basophils | 0.4 | 0.0 - 1.0 % | [facility] | | | | | | [facility] | | | | | | MEDICAL | | | | | | CENTER - | | | | | | LABORATORY | | + + + + + + | Absolute | 3.40 | 1.80 - 8.50 | [facility] | | | Neutrophils | | K/uL | [facility] | | | | | | MEDICAL | | | | | | CENTER - | | | | | | LABORATORY | | + + + + + + | Absolute | 0.70 | 0.60 - 3.20 | [facility] | | | Lymphocytes | | K/uL | [facility] | | | | | | MEDICAL | | | | | | CENTER - | | | | | | LABORATORY | | + + + + + + | Absolute | 0.60 | 0.00 - 1.00 | [facility] | | | Monocytes | | K/uL | [facility] | | | | | | MEDICAL | | | | | | CENTER - | | | | | | LABORATORY | | + + + + + + | Absolute | 0.20 | 0.00 - 0.40 | [facility] | | | Eosinophils | | K/uL | [facility] | | | | | | MEDICAL | | | | | | CENTER - | | | | | | LABORATORY | | + + + + + + | Absolute | 0.00 | 0.00 - 0.10 | [facility] | | | Basophils | | K/uL | [facility] | | | | | | MEDICAL | | | | | | CENTER - | | | | | | LABORATORY | | + + + + + + + + | Specimen | + + | Blood | + + + + + + + | Performing | Address | City/State/Zipcode | Phone Number | | Organization | | | | + + + + + | [facility] | [address] | [place] | [phone] | | [facility] | | [address] | | | - LABORATORY | | | | + + + + + | [facility] | [address] | [place], [place] | | | [facility] | | [address], [facility] | | | - LABORATORY | | | | + + + + + documented in this encounter Visit Diagnoses + + | Diagnosis | + + | Rectal cancer (HCC) - Primary Malignant neoplasm of rectum | + + documented in this encounter"
--- OUTSIDE RECORDS SUMMARY | ~2020-02-23 | XMS | Encounter Summary ---
Demographics + + + | Address | [address] | | | [place] [address] | + + + | Home Phone | | + + + | Preferred Language | Unknown | + + + | Marital Status | Single | + + + | Buddhist Affiliation | 1041 | + + + | Race | Unknown | + + + | Ethnic Group | Unknown | + + + Author + + + | Author | [facility] | | | and [place] | + + + | Organization | [facility] | | | [...] Team Providers + +------+ + | Care Operating Room Technician Name | Role | Phone | + +------+ + | Cindy Miramontes MD | PCP | | + +------+ + Encounter Details +--------+ + + + + | Date | Type | Department | Care Team | Description | +--------+ + + + + | 01/31/ | Hospital | [facility] | Artur, | Rectal cancer (HCC) | | 2015 | Encounter | [facility] | Casimiro Crockett MD [address] | (Primary Dx) | | | | [facility] [address] [place] | | | | | [address] | [place] [address] | | | | | [place] [address] | [phone] | | | | | [phone] | | | +--------+ + + + [...] documented in this encounter Administered Medications + +---------+ +--------+--------+------+ | Medication Order | MAR | Action | Dose | Rate | Site | | | Action | Date | | | | + +---------+ +--------+--------+------+ | oxaliplatin (ELOXATIN) 215 mg | New Bag | 02/01/20 | 215 mg | 271.5 | | | in dextrose 5% 500 mL chemo | | 15 12:49 | | mL/hr | | | infusion 215 mg (rounded from | | PM PDT | | | | | 216 mg = 100 mg/m2 | | | | | | | 2.16 m2 Treatment plan recorded | | | | | | | BSA), Intravenous, Administer | | | | | | | over 2 Hours, ONCE, 01/31/15 | | | | | | | at 1300, For 1 dose, | | | | | | | Chemotherapy: This is a high risk | | | | | | | medication. Not compatible with | | | | | | | NS or any chloride-containing | | | | | | | solutions. Flush line with D5W | | | | | | | prior to giving any other meds., | | | | | | + +---------+ +--------+--------+------+ +---+---+ | | | +---+---+ documented in this encounter"
--- OUTSIDE RECORDS SUMMARY | ~2020-02-23 | XMS | Encounter Summary ---
Demographics + + + | Address | [address] [facility] [address] [facility] [address] | | | [place] [address] | + + + | Home Phone | | + + + | Preferred Language | Unknown | + + + | Marital Status | Single | + + + | Presybeterian Affiliation | 1041 | + + + | Race | Unknown | + + + | Ethnic Group | Unknown | + + + Author + + + | Author | [facility] | | | and [place] | + + + | Organization | [facility] | | | [...] Team Providers + +------+ + | Care Sports Doctor Name | Role | Phone | + [...] | Telephone | [facility] | Frida Oquendo | Other | | 2014 | | [facility] | MD Alanis [address] | | | | | [address]OGY [address] [place], [place] | | | | | [place], | [address] | | | | | [place] [address] | | | | | | [phone] | | | +--------+ + + + [...]
--- OUTSIDE RECORDS SUMMARY | ~2020-02-23 | XMS | Encounter Summary ---
Demographics + + + | Address | [address] [facility] [address] | | | [place] [address] | + + + | Home Phone | | + + + | Preferred Language | Unknown | + + + | Marital Status | Single | + + + | Taoism Affiliation | 1041 | + + + | Race | Unknown | + + + | Ethnic Group | Unknown | + + + Author + + + | Author | [facility] | | | and [place] | + + + | Organization | [facility] | | [...] Team Providers + +------+ + | Care Field Tech Name | Role | Phone | + +------+ + | Kera Hernandez PA-C | PCP | | + +------+ + Encounter Details +--------+ + + + + | Date | Type | Department | Care Team | Description | +--------+ + + + + | 12/08/ | Hospital | [facility] | Ramirez Mattson, | Breast nodule | | 2019 | Encounter | [facility] | [id number] | | | | | [address] | [place] | | | | | [place] | [place] [address] | | | | | [address] | [phone] | | | | | [phone] | | | +--------+ + + + + Social History + + + +--------+------+ | Tobacco Use | Types | Packs/Day | Years | Date | | | | | Used | | + + + +--------+------+ | Never Smoker | Cigarettes | | | | [...] +---------+ + | Yes | | | Alcoholic | | | | | Drinks/day: occ | + + +---------+ + + + [...] + + + +---------+ + + | ALPRAZolam (XANAX) | | | 0 | 06/26/20 | | | 0.5 mg tablet | | | | 18 | | + + + +---------+ + [...] + + + +---------+ + + | DULoxetine | Take 30 mg by mouth | | 0 | | | | (CYMBALTA) [address] | Daily. | | | | | | capsule | | | | | | + + + +---------+ + + | | Take 1 tablet by | | 0 | | | | HYDROcodone-acetamin | mouth every 6 hours | | | | | | ophen (NORCO) 5-325 | as needed for Pain. | | | | | | mg per tablet | | | | | | + + + +---------+ + + | hydrocortisone | Place rectally 2 | 30 g | 2 | 04/14/20 | | | (ANUSOL-HC) 2.5% | times daily. | | | 18 | | | rectal cream | | | | | | + + + +---------+ + + | lisinopril | Take 10 mg by mouth. | | 0 | | | | (PRINIVIL, ZESTRIL) | | | | | | | 10 mg tablet | | | | | | + + + +---------+ + + | lisinopril | | | 0 | 07/29/20 | | | (PRINIVIL, ZESTRIL) | | | | 18 | | | 5 mg tablet | | | | | | + + + +---------+ + + | loperamide | | | 0 | 09/30/20 | | | (IMODIUM) 2 mg | | | | 18 | | | capsule | | | | | | + [...] times daily (with | | | | | | tablet | breakfast & | | | | | | | dinner). | | | | | + + + +---------+ + + | nortriptyline | | | 0 | 10/02/20 | | | (PAMELOR) 10 MG | | | | 18 | | | capsule | | | | | | + + + +---------+ + + | OMEGA 3 1000 MG | Take by mouth. | | 0 | | | | CAPS | | | | | | + + + +---------+ + + | oxybutynin | | | 0 | 08/19/20 | | | (DITROPAN) 5 mg | | | | 18 | | | tablet | | | | | | + + + +---------+ + + | psyllium (KONSYL) | Take 1 packet by | 30 each | 11 | 04/14/20 | | | 28.3 % PACK | mouth Daily. | | | 18 | | + + + +---------+ + + | SM ASPIRIN ADULT | | | 0 | 10/29/19 | | | LOW STRENGTH 81 MG | | | | 19 | | | EC tablet | | | | | | + + + +---------+ + + | TRUE METRIX BLOOD | | | 0 | 09/02/20 | | | GLUCOSE TEST strip | | | | 18 | | + + + +---------+ + + documented as of this encounter Plan of Treatment Not on filedocumented as of this encounter Visit Diagnoses + + | Diagnosis | + + | Breast nodule Other (abnormal) findings on radiological examination of breast | + + documented in this encounter"
--- OUTSIDE RECORDS SUMMARY | ~2020-02-23 | XMS | Encounter Summary ---
Demographics + + + | Address | [address] [facility] [address] | | | [place] [address] | + + + | Home Phone | | + + + | Preferred Language | Unknown | + + + | Marital Status | Single | + + + | Bahai Affiliation | 1041 | + + + | Race | Unknown | + + + | Ethnic Group | Unknown | + + + Author + + + | Author | [facility] | | | and [place] | + + + | Organization | [facility] | | | and [...] Team Providers + +------+ + | Care Meter Readers Supervisor Name | Role | Phone | + +------+ + | Cindy Miramontes MD | PCP | | + +------+ + Encounter Details +--------+ + + + + | Date | Type | Department | Care Team | Description | +--------+ + + + + | 09/08/ | Hospital | [facility] | Frida Oquendo | Dysuria | | 2013 | Encounter | [facility] | MD Alanis [address] | | | | | ONCOLOGY CLINIC [address] | [facility] [place] | | | | | [address] | [id number] | | | | | [place] [address] | | | | | | [phone] | | | +--------+ + + + [...] | + +--------+ + + + | URINALYSIS WITH | Routin | 09/08/2014 | Dysuria | Results for this | | MICROSCOPIC WITH | e | 11:15 AM | | procedure are in the | | CULTURE IF INDICATED | | PST | | results section. | + +--------+ + + + documented in this encounter Results Urinalysis with Microscopic with Culture if Indicated (09/08/2014 11:15 AM PST) + + + + + + | Component | Value | Ref Range | Performed | Pathologist | | | | | At | Signature | + + + + + + | Color, | Yellow | Light Yellow, | [facility] | | | Urine | | Yellow | [facility] | | | | | | MEDICAL | | | | | | CENTER - | | | | | | LABORATORY | | + + + + + + | Clarity | Clear | Clear | [facility] | | | | | | [facility] | | | | | | MEDICAL | | | | | | CENTER - | | | | | | LABORATORY | | + + + + + + | pH, Urine | 6.0 | 5.0 - 8.0 | [facility] | | | | | | [facility] | | | | | | MEDICAL | | | | | | CENTER - | | | | | | LABORATORY | | + + + + + + | Specific | <=1.005 | 1.001 - 1.030 | [facility] | | | [place], | | | [facility] | | | Urine | | | MEDICAL | | | | | | CENTER - | | | | | | LABORATORY | | + + + + + + | Protein, | Negative | Negative | [facility] | | | Urine | | | [facility] | | | | | | MEDICAL | | | | | | CENTER - | | | | | | LABORATORY | | + + + + + + | Blood, | Trace (A) | Negative | [facility] | | | Urine | | | [facility] | | | | | | MEDICAL | | | | | | CENTER - | | | | | | LABORATORY | | + + + + + + | Glucose, | >1000 mg/dL (A) | Negative | [facility] | | | Urine | | | [facility] | | | | | | MEDICAL | | | | | | CENTER - | | | | | | LABORATORY | | + + + + + + | Ketones, | Negative | Negative | [facility] | | | Urine | | | [facility] | | | | | | MEDICAL | | | | | | CENTER - | | | | | | LABORATORY | | + + + + + + | Bilirubin, | Negative | Negative | [facility] | | | Urine | | | [facility] | | | | | | MEDICAL | | | | | | CENTER - | | | | | | LABORATORY | | + + + + + + | Nitrite, | Negative | Negative | [facility] | | | Urine | | | [facility] | | | | | | MEDICAL | | | | | | CENTER - | | | | | | LABORATORY | | + + + + + + | Leukocyte | Negative | Negative | [facility] | | | Esterase, | | | [facility] | | | Urine | | | MEDICAL | | | | | | CENTER - | | | | | | LABORATORY | | + + + + + + | Urobilinoge | 0.2 E.U./dL | 0.2 E.U./dL, | [facility] | | | n, Urine | | 1.0 E.U./dL | [facility] | | | | | | MEDICAL | | | | | | CENTER - | | | | | | LABORATORY | | + + + + + + | White Blood | 0-2 | 0 - 2 /HPF | [facility] | | | Cells, | | | [facility] | | | Urine | | | MEDICAL | | | | | | CENTER - | | | | | | LABORATORY | | + + + + + + | Red Blood | 2-5 (A) | 0 - 2 /HPF | [facility] | | | Cells, | | | [facility] | | | Urine | | | MEDICAL | | | | | | CENTER - | | | | | | LABORATORY | | + + + + + + | Squamous | 2-5 (A) | 0 - 2 /LPF | [facility] | | | Epithelial | | | [facility] | | | Cells, | | | MEDICAL | | | Urine | | | CENTER - | | | | | | LABORATORY | | + + + + + + | Bacteria, | 1+ (A) | Negative /HPF | [facility] | | | Urine | | | [facility] | | | | | | MEDICAL | | | | | | CENTER - | | | | | | LABORATORY | | + + + + + + | Urine | Urine Culture Not | | [facility] | | | Comment | Indicated | | [facility] | | | | | | MEDICAL | | | | | | CENTER - | | | | | | LABORATORY | | + + + + + + + + | Specimen | + + | Urine - Urine | | specimen obtained by | | clean catch | | procedure (specimen) | + + + + + + + | Performing | Address | City/State/Zipcode | Phone Number | | Organization | | | | + + + + + | [facility] | [address] | [place] | [phone] | | [facility] | | [address] | | | - LABORATORY | | | | + + + + + | [facility] | [address] | [place] | | | [facility] | | [address], [facility] | | | - LABORATORY | | | | + + + + + documented in this encounter Visit Diagnoses + + | Diagnosis | + + | Dysuria | + + documented in this encounter"
--- OUTSIDE RECORDS SUMMARY | ~2020-02-23 | XMS | Clinical Summary ---
Demographics + + + | Address | [address] | | | [place] [address] | + + + | Home Phone | | + + + | Preferred Language | Unknown | + + + | Marital Status | Single | + + + | Holiness Affiliation | Unknown | + + + | Race | Unknown | + + + | Ethnic Group | Unknown | + + + Author + + + | Author | [facility] (Historical as of | | | 05-30-19) | + + + | Organization | [facility] (Historical as of | | | 05-30-19) | + + + | Address | Unknown | + + + | Phone | Unavailable | + + + Support + + +---------+ + | Name | Relationship | Address | Phone | + + +---------+ + | Samanta Mac | ECON | Unknown | | + + +---------+ + Care Team Providers + +------+ + | Care Professor Of Radiology Name | Role | Phone | + +------+ + | Kera Hernandez PA-C | PP | | + +------+ + Allergies + + + + + + | Active Allergy | Reactions | Severity | Noted | Comments | | | | | Date | | + + + + + + | Gabapentin | Mental Changes | Low | 01/31/20 | | | | | | 17 | | + + + + + + | Nsaids | Other (See Comments) | Medium | 01/31/20 | Does not remember | | | | | 17 | | + + + + + + Current Medications + + +-------+---------+------+------+-------+ | Prescription | Sig. | Disp. | Refills | Star | End | Statu | | | | | | t | Date | s | | | | | | Date | | | + + +-------+---------+------+------+-------+ | fish oil omega-3 | Take 1 g by mouth | | | | | Activ | | fatty acids 1000 MG | daily. | | | | | e | | capsule | | | | | | | + + +-------+---------+------+------+-------+ | aspirin 81 MG | Take 81 mg by mouth | | | | | Activ | | tablet | daily. | | | | | e | + + +-------+---------+------+------+-------+ | cyanocobalamin | Take 500 mcg by | | | | | Activ | | (VITAMIN B-12) 500 | mouth daily. | | | | | e | | MCG tablet | | | | | | | + + +-------+---------+------+------+-------+ | metFORMIN | Take 500 mg by mouth | | | | | Activ | | (GLUCOPHAGE) 500 MG | 2 (two) times daily | | | | | e | | tablet | with meals. | | | | | | + + +-------+---------+------+------+-------+ | Calcium | Take by mouth. | | | | | Activ | | Carb-Cholecalciferol | | | | | | e | | (CALCIUM + D3 PO) | | | | | | | + + +-------+---------+------+------+-------+ | lisinopril | Take 10 mg by mouth | | | | | Activ | | (ZESTRIL) 10 MG | daily. | | | | | e | | tablet | | | | | | | + + +-------+---------+------+------+-------+ | DULoxetine | Take 30 mg by mouth | | | | | Activ | | (CYMBALTA) 30 MG | daily. | | | | | e | | capsule | | | | | | | + + +-------+---------+------+------+-------+ Active Problems + + + | Problem | Noted Date | + + + | Precordial pain | 01/30/2017 | + + + | Type 2 diabetes mellitus (HCC) | 11/09/2014 | + + + | Obesity with body mass index 30 or greater | 11/09/2014 | + + + | HTN (hypertension) | 11/09/2014 | + + + | CA of rectum | 08/06/2014 | + + + + + | Overview: Overview: ACTIVE DIAGNOSIS: [id number], endoscopically | | staged IIA rectal cancer.1. Carcinoma of the rectum Moderately | | differentiated adenocarcinoma Low lying position above the anal | | verge EUS findings suggest uT3 depth of invasionS/p | | chemo-radiotherapy neoadjuvant induction therapy, Aug-Sep, | | 2013S/p Laparascopic, low abdominal proctectomy, colo-anal | | aziza, Dr. Ronaldo Hess, [facility], Nov, 2014 with no | | histologically identifiable residual disease, Thus ypT0,N0 (0/7), | | M0Last Assessment & Plan: Extended office encounter with Bryanna | | and her family discussing the use of adjuvant CapeOx for the | | adjuvant treatment of her rectal cancer. This is an NCCN | | preferred regimen. The prescription is for four cycles of XELODA | | at 2000 mg po bid for 10 days on/11 days off given concurrently | | with intravenous oxaliplatin every 21 days. The dose of | | oxaliplatin can be reduced from 130 mg/m2 to 100 mg/2 without | | reducing efficacy and with better tolerance.Side effect if | | chemotherapy induced diarrhea was discussed in detail and the | | need to contact the cancer center promptly if ostomy output | | becomes excessive. The risk of febrile neutropenia was also | | discussed in detail an the need to contact the Cancer Center | | promptly if temperature is 101 deg F or higher.INFORMED CONSENT: | | The nature and character of the proposed treatment with CapeOx | | and the anticipated results of the proposed treatment with | | CapeOx;recognized alternative forms of treatment, including | | non-treatment; the risks benefits, and side effects of proposed | | treatment, alternative treatments and non-treatment were | | discussed with the patient who consents to proceed with treatment | | with CapeOx. The treating provider has examined the patient and | | reviewed the diagnostic data, including laboratory data, and | | deems that it is safe and appropriate to proceed with treatment | | with CapeOx. | + + Immunizations + + + + | Name | Dates Previously Given | Next Due | + + + + | Influenza, PF | 01/05/2015 | | | Recombinant, | | | | Trivalent (Flublok) | | | + + + + Family History + + +------+ + | Medical History | Relation | Name | Comments | + + +------+ + | Hypertension | Brother | | | + + +------+ + | Cancer | Father | | lung cancer | + + +------+ + | Heart disease | Mother | | | + + +------+ + + +------+ + + | Relation | Name | Status | Comments | + +------+ + + | Brother | | Alive | | + +------+ + + | Father | | | | + +------+ + + | Mother | | | | | | | (Age | | | | | 70) | | + +------+ + + Social History + +-------+ +--------+------+ | Tobacco Use | Types | Packs/Day | Years | Date | | | | | Used | | + +-------+ +--------+------+ | Never Smoker | | | | | + +-------+ +--------+------+ + +---+---+---+ | Smokeless Tobacco: | | | | | Never Used | | | | + +---+---+---+ + + +---------+ + | Alcohol Use | Drinks/We | oz/Week | Comments | | | ek | | | + + +---------+ + | Yes | | | occ | + + +---------+ + + + + | Sex Assigned at | Date Recorded | | | | + + + | Not on file | | + + + Last Filed Vital Signs + + + + | Vital Sign | Reading | Time Taken | + + + + | Blood Pressure | 120/68 | 12/03/2018 2:53 PM PST | + + + + | Pulse | 84 | 12/03/2018 2:53 PM PST | + + + + | Temperature | - | - | + + + + | Respiratory Rate | - | - | + + + + | Oxygen Saturation | 99% | 12/03/2018 2:53 PM PST | + + + + | Inhaled Oxygen | - | - | | Concentration | | | + + + + | Weight | 91.7 kg (202 lb 1.6 | 12/03/2018 2:53 PM PST | | | oz) | | + + + + | Height | 162.6 cm (5' 4") | 12/03/2018 2:53 PM PST | + + + + | Body Mass Index | 34.69 | 12/03/2018 2:53 PM PST | + + + + Plan of Treatment + + + + + | Health Maintenance | Due Date | Last Done | Comments | + + + + + | Diabetic Eye Exam | | | | | | 5 | | | + + + + + | Diabetic Foot Exam | | | | | | 5 | | | + + + + + | Hemoglobin A1c | | | | | | 5 | | | + + + + + | Microalbumin | | | | | Screening | 5 | | | + + + + + | Vaccine: | | | | | Dtap/Tdap/Td (1 - | 4 | | | | Tdap) | | | | + + + + + | Vaccine: | | | | | Pneumococcal 19-64 | 4 | | | | Highest Risk (1 of 3 | | | | | - PCV13) | | | | + + + + + | Cervical Cancer | | | | | Screening (Pap) | 5 | | | + + + + + | Breast Cancer | | | | | Screening | 5 | | | | (Mammogram) | | | | + + + + + | Colon Cancer | | | | | Screening | 5 | | | | (Colonoscopy) | | | | + + + + + | Vaccine: Zoster (1 | | | | | of 2) | 5 | | | + + + + + | Statin Therapy | | | | | (optimal intensity) | 7 | | | + + + + + | Vaccine: Influenza | | 01/05/2015 | | | (Season Ended) | 0 | | | + + + + + Results Not on filefrom Last 3 Months Insurance + +--------+ +------+-------+ + | Payer | Benefi | Subscriber | Type | Phone | Address | | | t Plan | ID | | | | | | / | | | | | | | Group | | | | | + +--------+ +------+-------+ + | [employer] | PREMER | [id number] | | | [address] [address] | | | A BLUE | | | | [place], [place] | | | [place] | | | | [address] | | | FED | | | | | | | PPO | | | | | + +--------+ +------+-------+ + | /[employer] | YELLOW | [id number] | | | | | PLANS | [place] | | | | | + +--------+ +------+-------+ + + +--------+ +--------+ + + | Guarantor Name | Accoun | Relation to | Date | Phone | Billing Address | | | t Type | Patient | of | | | | | | | | | | + +--------+ +--------+ + + | BRYANNA MAC | Person | Self | [birth year] | Home: | [address] | | al/Fam | | 1965 | [phone] [address] [place], [place] | | | [place] | | | [phone] | [phone] | + +--------+ +--------+ + +
--- OUTSIDE RECORDS SUMMARY | ~2020-02-23 | XMS | Encounter Summary ---
Demographics + + + | Address | [address] [facility] [address] | | | [place] [address] | + + + | Home Phone | | + + + | Preferred Language | Unknown | + + + | Marital Status | Single | + + + | Worship Affiliation | 1041 | + + + | Race | Unknown | + + + | Ethnic Group | Unknown | + + + Author + + + | Author | [facility] | | | and [place] | + + + | Organization | [facility] | | | and [...] Team Providers + +------+ + | Care Battery Builder Name | Role | Phone | + +------+ + | Cindy Miramontes MD | PCP | | + +------+ + Encounter Details +--------+ + + + + | Date | Type | Department | Care Team | Description | +--------+ + + + + | 09/08/ | Hospital | [facility] | Frida Oquendo | Dysuria | | 2013 | Encounter | [facility] | MD Alanis [address] | | | | | ONCOLOGY CLINIC [address] | [facility] [place] [place] | | | | | [address] | [id number] | | | | | [place] [address] | | | | | | [phone] | | | +--------+ + + + [...] - 1.030 | [facility] | | | [place], | | | [facility] | | [...] + | [facility] | [address] | [place] | [phone] | | [facility] | | [address] | | | - LABORATORY | | | | + + + + + | [facility] | [address] | [place] | | | [facility] | | [address], [facility] | | | - LABORATORY | | | | + + + + + documented in this encounter Visit Diagnoses + + | Diagnosis | + + | Dysuria | + + documented in this encounter"
--- OUTSIDE RECORDS SUMMARY | ~2020-02-23 | XMS | Encounter Summary ---
Demographics + + + | Address | [address] [address] [address] | | | [place] [address] | + + + | Home Phone | | + + + | Preferred Language | Unknown | + + + | Marital Status | Single | + + + | Tenriism Affiliation | [id number] | + + + | Race | Unknown | + + + | Ethnic Group | Unknown | + + + Author + + + | Author | [facility] | | | and [place] | + + + | Organization | [facility] | | | [...] Team Providers + +------+ + | Care Weight Control Engineer Name | Role | Phone | + [...] | | | | Procedures | [place], [place] | [facility] [place] | | | | | [place] OFFICE | [id number] | [facility] [place] | | | | | OUTPATIENT | Phone: | [phone] Phone: | | | | | VISIT 25 | [phone] | [phone] | | | | | MINUTES | Fax: | Fax: | | | | | | [phone] | [phone] | +--------+--------+ + + + + Encounter Details +--------+ + + + + | Date | Type | Department | Care Team | Description | +--------+ + + + + | 09/27/ | Hospital | [facility] | Wing Frank | Rectal cancer (HCC) | | 2014 | Encounter | [facility] | MD Casimiro [address] | (Primary Dx) | | | | [facility] [address] [place] | | | | | [address] [place] | [place] [address] | | | | | [place] [address] | [phone] | | | | | [phone] | | | +--------+ + + + [...] + + + | Blood Pressure | 137/92 | 09/27/2014 2:53 PM | | | | | PST | | + + + + + | Pulse | 91 | 09/27/2014 2:53 PM | | | | | PST | | + + + + + | Temperature | 36.9 C (98.4 F) | 09/27/2014 2:53 PM | | | | | PST | | + + + + + | Respiratory Rate | 18 | 09/27/2014 2:53 PM | | | | | PST | | + + + + + | Oxygen Saturation | 98% | 09/27/2014 2:53 PM | | | | | PST | | + + + + + | Inhaled Oxygen | - | - | | | Concentration | | | | + + + + + | Weight | 105.1 kg (231 lb | 09/27/2014 2:53 PM | | | | 11.3 oz) | PST | | + + + + + | Height | - | - | | + + + + + | Body Mass Index | 38.14 | 08/03/2014 11:14 AM | | | [...] capecitabine | Take 4 tablets by | 52 | 0 | 09/16/20 | | | (XELODA) 500 mg | mouth 2 times daily. | tablet | | 14 | 5 | | tabletIndications: | To be taken [...] encounter Progress Notes Wing Frank MD - 09/27/2014 3:17 PM PSTFormatting of this note might be diff erent from the original. Patient is a 49 y.o. female seen today, 09/27/2014, for chemotherapy with capecitabine for rectal carcinoma. Today is day 1/week 8 of therapy. Patient complaints: rectal pain, diarrhea, tnesmus Symptoms are gradually worsening during the past 24 hours. She continues to experience substantial symptomatology from pelvic radiation including migue christopher, a sense of straining at stool as well as pain particularly with driving. She realizes that she would not be able to work at the present time and wonders how quickly she will be able to recover that would allow such. She has benefited from both loperamide which she garcia es on a periodic basis and Proctofoam which she takes on a daily basis. She is not experien cing toxic effects from her Capecytidine such as myelosuppression or hand-foot syndrome Advance Directives: not addressed Appropriate portions of the patient's past medical, surgical, family, and social history we re reviewed and updated. Review of Systems Constitutional: Denies fatigue. Denies high fevers, shaking chills, anorexia, nausea, vomit ing, weight loss, or night sweats. Appetite without changes. Ear, Nose, Mouth, Throat: Denies odynophagia, dysphagia, or tinnitus. Cardiovascular: Denies shortness of breath, dyspnea on exertion, chest pain, palpitations o r orthopnea. Respiratory: Denies cough, hemoptysis, or sputum production. Gastrointestinal: Denies abdominal pain, constipation, diarrhea, melena, or bright red bloo d per rectum. Pt has intermittent diarrhea and constipation, pt reports having increased urg ency when she feels that she needs to have a BM. Genitourinary: Denies hematuria. Pt has ongoing dysuria. Musculoskeletal: Denies joint pain or tenderness. Neurologic: Denies headache or numbness/tingling of the extremities. Pt states her left eye is more blurred. Endocrine: Denies peripheral edema or heat/cold intolerance. Pt has ongoing left ankle ap a. Hematologic: Denies spontaneous bruising or bleeding. Integumentary: Denies rash, wounds or other skin concerns. Pain: Denies pain. Pt has rectal irritation. Objective: BP 137/92 | Pulse 91 | Temp 36.9 C (98.4 F) (Oral) | Resp 18 | Wt 105.1 kg (231 lb 11.3 oz) | SpO2 98% General appearance: alert, appears stated age and cooperative Data Review CBC: Lab Results Component Value Date WBC 4.7 09/27/2014 RBC 3.99 09/27/2014 BMP: Lab Results Component Value Date CO2 22* 08/05/2014 BUN 15 08/05/2014 CALCIUM 9.7 08/05/2014 Assessment: Active Problems: 1. Rectal cancer (HCC) Plan: The patient has a documented plan of care to address pain. Completion of Xeloda tentatively scheduled for today with last fraction of radiation for on . Plans for restaging evaluation tentatively set up for the first week of October. Review of timeline for patient's recovery to allow resumption of work. We expect that she will probably need at least an additional 3 weeks to achieve such a goal. Our followup in 4 weeks time. Wing Frank Julee Sloan CMA - 09/27/2014 2:56 PM PSTREVIEW OF SYSTEMS Constitutional: Denies fatigue. Denies high fevers, shaking chills, anorexia, nausea, vomit ing, weight loss, or night sweats. Appetite without changes. Ear, Nose, Mouth, Throat: Denies odynophagia, dysphagia, or tinnitus. Cardiovascular: Denies shortness of breath, dyspnea on exertion, chest pain, palpitations o r orthopnea. Respiratory: Denies cough, hemoptysis, or sputum production. Gastrointestinal: Denies abdominal pain, constipation, diarrhea, melena, or bright red bloo d per rectum. Pt has intermittent diarrhea and constipation, pt reports having increased ur gency when she feels that she needs to have a BM. Genitourinary: Denies hematuria. Pt has ongoing dysuria. Musculoskeletal: Denies joint pain or tenderness. Neurologic: Denies headache or numbness/tingling of the extremities. Pt states her left eye is more blurred. Endocrine: Denies peripheral edema or heat/cold intolerance. Pt has ongoing left ankle ap a. Hematologic: Denies spontaneous bruising or bleeding. Integumentary: Denies rash, wounds or other skin concerns. Pain: Denies pain. Pt has rectal irritation. Note:Pt is here for follow up and is currently taking xeloda, and States this is her last one as of today. My chart: documented in this encounter Plan of Treatment Not on filedocumented as of this encounter Procedures + +--------+ + + + | Procedure Name | Priori | Date/Time | Associated Diagnosis | Comments | | | ty | | | | + +--------+ + + + | CBC W/AUTO | STAT | 09/27/2014 | Rectal cancer | Results for this | | DIFFERENTIAL | | 2:41 PM | (HCC) | procedure are in the | | | | PST | | results section. | + +--------+ + + + documented in this encounter Results CBC w/ Auto Differential (09/27/2014 2:41 PM PST) + + + + + + | Component | Value | Ref Range | Performed | Pathologist | | | | | At | Signature | + + + + + + | WBC | 4.7 | 4.0 - 11.0 K/uL | [facility] | | [facility] | | | | | | [facility] | | + + + + + + | RBC | 3.99 | 3.70 - 5.20 | [facility] | | | | | M/uL | [facility] | | | | | [facility] | | | | | [facility] - | | | | | | [facility]AT[facility] | | + + + + + + | Hemoglobin | 12.2 | 11.5 - 16.0 | [facility] | | | | | g/dL | [facility] | | | | | | [facility] | | | | | | [facility] - | | | | | | [facility]ATORY | | + + + + + + | Hematocrit | 34.7 | 34.0 - 47.0 % | [facility] | | | | | | [facility] | | | | | | [facility] | | | | | | [facility] | | | | | | [facility] | | + + + + + + | MCV | 86.9 | 83.0 - 101.0 fL | [facility] | | | | | | [facility] | [facility] | | | | [facility] - | | | | | | [facility] | | + + + + + + | MCH | 30.5 | 28.0 - 35.0 pg | [facility] | | | | [facility] | [facility] | | | | | | [facility] | | + + + + + + | MCHC | 35.1 | 32.0 - 36.0 | [facility] | | | | | g/dL | [facility] | | | | | | [facility] | | | | | | [facility] - | | | | | | [facility]ATORY | | + + + + + + | RDW-CV | 16.0 (H) | <15.0 % | [facility] | | | | | [facility] | | | | [facility] | [facility] | | | | [facility] - | | | | | | [facility]ATORY | | + + + + + + | Platelet | 197 | 140 - 440 K/uL | [facility] | | | Count | | | [facility] | | | | | | [facility] | | | | [facility] - | | | | | | [facility]ORY | | + + + + + + | MPV | 7.2 | fL | [facility] | | | | | | [facility] | | | | | [facility] | | | | [facility] - | | | | | | [facility] | | + + + + + + | % | 74.9 | 45.0 - 82.0 % | [facility] | | | Neutrophils | | | [facility] | | | | | | [facility] | | | | | | [facility] - | | | | | | [facility]ATORY | | + + + + + + | % | 10.5 (L) | 20.0 - 45.0 % | [facility] | | | Lymphocytes | | | [facility] | | | | | | [facility] | | | | | | [facility] - | | | | | | [facility]ATORY | | + + + + + + | % Monocytes | 10.9 | 4.0 - 12.0 % | [facility] | | | | | | [facility] | | | | | | [facility] | | | | | | [facility] - | | | | | | [facility]ATORY | | + + + + + + | % | 3.5 | 0.0 - 5.0 % | [facility] | | | Eosinophils | | | [facility] | | | | | | [facility] | | | | | | [facility] - | | | | | | LAB[facility]ATORY | | + + + + + + | % Basophils | 0.2 | 0.0 - 1.0 % | [facility] | | | | | | [facility] | | | | | | [facility] | | | | | | [facility] - | | | | | | LAB[facility]ATORY | | + + + + + + | Absolute | 3.50 | 1.80 - 8.50 | [facility] | | | Neutrophils | | K/uL | [facility] | | | | | | [facility] | | | | | | [facility] - | | | | | | LABORATORY | | + + + + + + | Absolute | 0.50 (L) | 0.60 - 3.20 | [facility] | | | Lymphocytes | | K/uL | [facility] | | | | | | [facility] | | | | | | [facility] - | | | | | | LABORATORY | | + + + + + + | Absolute | 0.50 | 0.00 - 1.00 | [facility] | [...] + | [facility] | [address] | [place] | [phone] | | [facility] | | [id number] | | | - LABORATORY | | | | + + + + + | [facility] | [address] | [place] | | | [facility] | | [address] [place] [address] | | | - LABORATORY | | | | + + + + + documented in this encounter Visit Diagnoses + + | Diagnosis | + + | Rectal cancer (HCC) - Primary Malignant neoplasm of rectum | + + documented in this encounter"
--- OUTSIDE RECORDS SUMMARY | ~2020-02-23 | XMS | Encounter Summary ---
Demographics + + + | Address | [address] [facility] [address] | | | [place] [address] | + + + | Home Phone | | + + + | Preferred Language | Unknown | + + + | Marital Status | Single | + + + | Mormon Affiliation | 1041 | + + + | Race | Unknown | + + + | Ethnic Group | Unknown | + + + Author + + + | Author | [facility] | | | and [place] | + + + | Organization | [facility] | | [...] Team Providers + +------+ + | Care Marketing Communications Coordinator Name | Role | Phone | + [...] | Oncology | Diagnoses | Kulwinder, | Mnoika | | | | | Malignant | MD Cindy | Wing | | | | | neoplasm of | [address] | MD Casimiro | | | | | rectum (HCC) | [address] [place] | [address] | | | | | Procedures | [place], [place] | [place] | | | | | [place] OFFICE | [address] | [facility] [place], [place] | | | | | OUTPATIENT | Phone: | [phone] Phone: | | | | | VISIT 25 | [phone] | [phone] | | | | | MINUTES | Fax: | Fax: | | | | | | [phone] | [phone] | +--------+--------+ + + + + Encounter Details +--------+ + + + + | Date | Type | Department | Care Team | Description | +--------+ + + + + | 12/04/ | Hospital | [facility] | Wing Frank | Rectal cancer (HCC) | | 2017 | Encounter | [facility] | MD Casimiro [address] | (Primary Dx); Anemia | | | | [facility] [address] [place] | associated with | | | | [address] [place] | [place] [address] | acute blood loss | | | | [place] [address] | [phone] | | | | | [phone] | | | +--------+ + + + [...] + + + | Blood Pressure | 126/84 | 12/04/2016 1:38 PM | | | | | PST | | + + + + + | Pulse | 96 | 12/04/2016 1:38 PM | | | | | PST | | + + + + + | Temperature | 37.3 C (99.1 F) | 12/04/2016 1:38 PM | | | | | PST | | + + + + + | Respiratory Rate | 16 | 12/04/2016 1:38 PM | | | | | PST | | + + + + + | Oxygen Saturation | 97% | 12/04/2016 1:38 PM | | | | | PST | | + + + + + | Inhaled Oxygen | - | - | | | Concentration | | | | + + + + + | Weight | 94.3 kg (207 lb 14.3 | 12/04/2016 1:38 PM | | | | oz) | PST | | + + + + + | Height | - | - | | + + + + + | Body Mass Index | 34.22 | 01/31/2015 11:35 AM | | | | | PDT [...] | + + + +---------+--------+ + | Loperamide HCl | Take by [...] | + + + +---------+--------+ + | methylcellulose | Take 19 g by mouth | | 0 | | | | (CITRUCEL) powder | Daily. | | | | 8 | + + + +---------+--------+ + | Probiotic Product | Take by mouth. | | 0 | | | | (PROBIOTIC PO) | | | | | 7 | + + + +---------+--------+ + documented as of this encounter Progress Notes Jen Doherty, OLERICULTURIST - 12/04/2016 1:41 PM PSTREVIEW OF SYSTEMS Constitutional: States sleeping lots more over the last few days. Denies high fevers, shaki ng chills, anorexia, nausea, vomiting, or weight loss. Appetite without changes. States silver christie a night sweat last night which she states hasn't happened for a while. Ear, Nose, Mouth, Throat: Denies odynophagia, dysphagia, or tinnitus. States itching in ear s. Cardiovascular: States shortness of breath, dyspnea on exertion, increased over the last fe w weeks. Denies chest pain, palpitations or orthopnea. Respiratory: Denies cough, hemoptysis, or sputum production. Gastrointestinal: Denies Constipation, or diarrhea, or melena. Intermittent pain on the l eft side of abdomin from hernia. States minimal rectal bleeding has improved from before. Genitourinary: Denies hematuria or dysuria. Musculoskeletal: Denies joint pain or tenderness. Neurologic: Denies headache, visual changes, or numbness/tingling of the extremities. Hematologic: Denies spontaneous bruising or bleeding. Integumentary: Denies rash, wounds or other skin concerns. Pain: Denies pain. Note: Pt is here for labs and 3 month follow up. My chart: Wing Perez MD - 12/04/2016 1:40 PM PSTFormatting of this note might be different from the origi nal. Hem-Onc Progress Note [facility] Pt. Name/Age/: Fang Stephenson 51 y.o. 1965 Med. Record Number: [id number] Date of admission: 12/04/2016 Assessment and plan: 1. 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 Ronaldo Hess, [facility] , Nov, 2014 with no histologically identifiable residual disease, Thus ypT0,N0 (0/7), M0 S/p 4 cycles post-surgical adjuvant CapOx chemotherapy: January-March, Review of results of CT scan abdomen and pelvis obtained earlier this month with negative f indings with regard to recurrent disease. This matches up with both patient's history and p hysical exam as well as biochemical monitoring with consistently normal CEA antigen. All of this take into account suggest patient now in continuing remission 2 years from time of ini tiation of neoadjuvant therapy. Review of blood testing from earlier today disclosing improvement in earlier microcytic hyp ochromic anemia with hemoglobin now rising into the normal range. We discussed continuation of replacement on a periodic basis and patient will receive a 200 mg iron sucrose infusion today an attempt to normalize red blood cell indices. Our follow-up will then continue on a quarterly basis. Subjective: The patient chart and medications were reviewed in detail and the patient was seen and exam ined. Fang Stephenson is a 51 y.o. female returns today for follow-up monitoring a remission o f primary carcinoma of the rectum. Interim history of evaluations both here, [facility] and then at [facility] includi ng colonoscopy by Dr. Russell asked month with negative findings with regard to recurrent dis ease. Patient has benefited from counseling with regard to diet instruction and has taken t o eating more slowly which she believes has begun to help an earlier irritable bowel syndrom e. Patient also benefiting from a program of Citrucel which she takes several times a day. She may also have improved subjectively since beginning a program of iron replacement which is making a dent on an earlier moderately severe iron deficiency anemia. 1 negative is the patient's still recovering from elective surgery on her toes for hammerto e. She describes that at the moment it's difficult for her to even walk up a slight incline to her home where she lives because of the pain. PSH: Reviewed, no changes to admission H&P. Review of Systems: Constitutional: States sleeping lots more over the last few days. Denies high fevers, shaki ng chills, anorexia, nausea, vomiting, or weight loss. Appetite without changes. States havi ng a night sweat last night which she states hasn't happened for a while. Ear, Nose, Mouth, Throat: Denies odynophagia, dysphagia, or tinnitus. States itching in ear s. Cardiovascular: States shortness of breath, dyspnea on exertion, increased over the last fe w weeks. Denies chest pain, palpitations or orthopnea. Respiratory: Denies cough, hemoptysis, or sputum production. Gastrointestinal: Denies Constipation, or diarrhea, or melena. Intermittent pain on the lef t side of abdomin from hernia. States minimal rectal bleeding has improved from before. Genitourinary: Denies hematuria or dysuria. Musculoskeletal: Denies joint pain or tenderness. Neurologic: Denies headache, visual changes, or numbness/tingling of the extremities. Hematologic: Denies spontaneous bruising or bleeding. Integumentary: Denies rash, wounds or other skin concerns. Pain: Denies pain. Review of systems as above otherwise negative Scheduled Medications: Continuous Infusions: PRN Meds:. Allergy: Allergies Allergen Reactions Gabapentin Other (See Comments) Suicidal thoughts Latex Redness and irritation during chemotherapy Nitrofurantoin Rash Objectives: on Min/Max Temp past 24 hours:No Data Recorded No intake or output data in the 24 hours ending 12/04/16 1340 Wt. Admission: Wt. Current: Physical Exam: Exam: General: The patient is alert and oriented. No acute distress. Psychiatric: Normal mood and affect. Diagnostic studies: Component Latest Ref Rng 12/04/2016 1327 WBC 4.0-11.0 K/uL 5.6 RBC: 3.70-5.20 M/uL 4.85 Hgb 11.5-16.0 g/dL 12.0 Hct, Final 34.0-47.0 % 36.9 MCV 83.0-101.0 fL 76.2 (L) MCH 28.0-35.0 pg 24.7 (L) MCHC 32.0-36.0 g/dL 32.4 RDW-CV <15.0 % 20.3 (H) Platelet Count 140-440 K/uL 267 MPV 7.9 % Neutrophils 45.0-82.0 % 68.5 % Lymphocytes 20.0-45.0 % 20.8 % Monocytes 4.0-12.0 % 8.0 % Eosinophils 0.0-5.0 % 1.9 % Basophils 0.0-1.0 % 0.8 Absolute Neutrophils 1.80-8.50 K/uL 3.90 Absolute Lymphocytes 0.60-3.20 K/uL 1.20 Absolute Monocytes 0.00-1.00 K/uL 0.40 Absolute Eosinophils 0.00-0.40 K/uL 0.10 Absolute Basophils 0.00-0.10 K/uL 0.00 Ct Chest Abdomen Pelvis W Contrast 11/23/2016 CT CHEST ABDOMEN AND PELVIS WITH CONTRAST CLINICAL INFORMATION: Follow up recta l cancer. COMPARISON: MRpelvis dated 08/10/2014; CTCAP WWO dated 02/07/2016 PROCEDURE: Axia l images through the chest, abdomen and pelvis after the administration of 100 ml Omnipaque 350 intravenous contrast. Multiplanar reconstructions. At least one of the following CT dos e optimization techniques were used: Automated exposure control; Adjustment of mA and/or kV according to patient size; Use of iterative reconstruction technique. FINDINGS: CHEST Lungs , Pleura and Airways: No significant pulmonary abnormality. No airway narrowing or obstructi on. No pleural effusion or pneumothorax. Mediastinum: No significant pericardial, great vess el or esophageal abnormality. No mediastinal mass. Lymph Nodes: No mediastinal, hilar, supra clavicular or axillary adenopathy. ABDOMEN Liver and Biliary: No gallbladder or biliary abn ormality. No significant liver abnormality. Pancreas, Spleen and Adrenals: No pancreatitis o r pancreatic mass. No splenomegaly, splenic mass or splenic hemorrhage. No significant adren al abnormality. Kidneys: Marked atrophy of the right kidney. 0.8 cm exophytic lesion projec ting off the posterior aspect of the mid left kidney, image 83, is unchanged. No hydronephr osis. ABDOMEN AND PELVIS Bowel: Large and small bowel are normal in caliber. [id number] ileal anastomosis is unchanged from the prior examination. Vessels: No significant abnormali ty in the aorta, its proximal branches or the iliac arteries. No significant abnormality in the portal veins, mesenteric veins or systemic veins. Lymph Nodes: No gastrohepatic, portahe patis, paraaortic, retrocrural or mesenteric adenopathy. No iliac, obturator or inguinal ishan nopathy. Peritoneum and Retroperitoneum: No intraperitoneal free air, ascites or peritoneal mass. No significant retroperitoneal abnormality. PELVIS Genitourinary: No hydroureter. No ureteral or bladder calculus. No significant uterine or adnexal abnormality. BODY WALL Soft Tissues: Right upper quadrant anterior abdominal hernia measures 2.9 cm and contains loops of small bowel without evidence of obstruction or strangulation. Bones: No acute fracture or vertebral end plate destruction. No lytic or blastic lesion. IMPRESSION- Summary of target lesions: None. Comments: The radiologist signature directly following this report is the r [facility] radiologist and billing locum provider for this service. The radiologist placing the final signature did not dictate or review this study, but was required to sign for administr ative purposes only. Signed by: Carlito Mccormick Report sent: 11/23/2016 9:37:00 AM Dictated a nd Signed by: Bubba Hutchinson MD Electronically signed: 11/23/2016 9:47 AM Electronically signed by: Wing Frank, 12/04/2016 13:40 [facility] TIME SPENT 20 MIN. > 50% AT BEDSIDE, WITH FAMILY/PATIENT IN CARE AND INTERN PRODUCT MARKETING MANAGER ON UNIT AND CO ORDINATION OF CARE Portions of this chart may have been created with StudySoup voice recognition software. Occasi onal wrong-word or sound-alike substitutions may have occurred due to the inherent rutherford itations of voice recognition software. Please read the chart carefully and recognize, using context, where these substitutions have occurred. documented i n this encounter Plan of Treatment Not on filedocumented as of this encounter Procedures + +--------+ + + + | Procedure Name | Priori | Date/Time | Associated Diagnosis | Comments | | | ty | | | | + +--------+ + + + | CBC W/AUTO | STAT | 12/04/2016 | Anemia associated | Results for this | | DIFFERENTIAL | | 1:27 PM | with acute blood | procedure are in the | | | | PST | loss | results section. | + +--------+ + + + | IRON AND TRANSFERRIN | STAT | 12/04/2016 | Rectal cancer | Results for this | | | | 1:27 PM | (HCC) | procedure are in the | | | | PST | | results section. | + +--------+ + + + | FERRITIN | STAT | 12/04/2016 | Rectal cancer | Results for this | | | | 1:27 PM | (HCC) | procedure are in the | | | | PST | | results section. | + +--------+ + + + | CEA | STAT | 12/04/2016 | Rectal cancer | Results for this | | | | 1:27 PM | (HCC) | procedure are in the | | | | PST | | results section. | + +--------+ + + + | COMPREHENSIVE | STAT | 12/04/2016 | Rectal cancer | Results for this | | METABOLIC PANEL | | 1:27 PM | (HCC) | procedure are in the | | | | PST | | results section. | + +--------+ + + + documented in this encounter Results CBC w/ Auto Differential (12/04/2016 1:27 PM PST) + + + + + + | Component | Value | Ref Range | Performed | Pathologist | | | | | At | Signature | + + + + + + | WBC | 5.6 | 4.0 - 11.0 K/uL | [facility] | | | | | | [facility] | | | | | | [facility] | | | | | [facility] - | | | | | | LABORATORY | | + + + + + + | RBC | 4.85 | 3.70 - 5.20 | [facility] | | | | | M/uL | [facility] | | | | | | [facility] | | | | | | C[facility] - | | | | | | LABORATORY | | + + + + + + | Hemoglobin | 12.0 | 11.5 - 16.0 | [facility] | | | | | g/dL | [facility] | | | | | | [facility]ICAL | | | | | | CENTER - | | | | | | LABORATORY | | + + + + + + | Hematocrit | 36.9 | 34.0 - 47.0 % | [facility] | | | | | | [facility] | | | | | | [facility] | | | | | | C[facility] - | | | | | | LABORATORY | | + + + + + + | MCV | 76.2 (L) | 83.0 - 101.0 fL | [facility] | | | | | | [facility] | | | | | | [facility]ICAL | | | | | | [facility] - | | | | | | LABORATORY | | + + + + + + | MCH | 24.7 (L) | 28.0 - 35.0 pg | [facility] | | | | | | [facility] | | | | | | [facility]ICAL | | | | | | C[facility] - | | | | | | LABORATORY | | + + + + + + | MCHC | 32.4 | 32.0 - 36.0 | [facility] | | | | | g/dL | [facility] | | | | | | [facility]ICAL | | | | | | CENTER - | | | | | | LABORATORY | | + + + + + + | RDW-CV | 20.3 (H) | <15.0 % | [facility] | | | | | | [facility] | | | | | | [facility]ICAL | | | | | | CENTER - | | | | | | LABORATORY | | + + + + + + | Platelet | 267 | 140 - 440 K/uL | [facility] | | | Count | | | [facility] | | | | | | MEDICAL | | | | | | CENTER - | | | | | | LABORATORY | | + + + + + + | MPV | 7.9 | fL | [facility] | | | | | | [facility] | | | | | | [facility]ICAL | | | | | | C[facility] - | | | | | | LABORATORY | | + + + + + + | % | 68.5 | 45.0 - 82.0 % | [facility] | | | Neutrophils | | | [facility] | | | | | | [facility]ICAL | | | | | | CENTER - | | | | | | LABORATORY | | + + + + + + | % | 20.8 | 20.0 - 45.0 % | [facility] | | | Lymphocytes | | | [facility] | | | | | | MEDICAL | | | | | | CENTER - | | | | | | LABORATORY | | + + + + + + | % Monocytes | 8.0 | 4.0 - 12.0 % | [facility] | | | | | | [facility] | | | | | | [facility]ICAL | | | | | | CENTER - | | | | | | LABORATORY | | + + + + + + | % | 1.9 | 0.0 - 5.0 % | [facility] | | | Eosinophils | | | [facility] | | | | | | MEDICAL | | | | | | CENTER - | | | | | | LABORATORY | | + + + + + + | % Basophils | 0.8 | 0.0 - 1.0 % | [facility] | | | | | | [facility] | | | | | | MEDICAL | | | | | | CENTER - | | | | | | LABORATORY | | + + + + + + | Absolute | 3.90 | 1.80 - 8.50 | [facility] | | | Neutrophils | | K/uL | [facility] | | | | | | MEDICAL | | | | | | CENTER - | | | | | | LABORATORY | | + + + + + + | Absolute | 1.20 | 0.60 - 3.20 | [facility] | | | Lymphocytes | | K/uL | [facility] | | | | | | MEDICAL | | | | | | CENTER - | | | | | | LABORATORY | | + + + + + + | Absolute | 0.40 | 0.00 - 1.00 | [facility] | | | Monocytes | | K/uL | [facility] | | | | | | [facility]ICAL | | | | | | CENTER - | | | | | | LABORATORY | | + + + + + + | Absolute | 0.10 | 0.00 - 0.40 | [facility] | [...] + | [facility] | [address] | [place] | [phone] | | [facility] | | [address] | | | - LABORATORY | | | | + + + + + Comprehensive Metabolic Panel (12/04/2016 1:27 PM PST) + + + + + + | Component | Value | Ref Range | Performed | Pathologist | | | | | At | Signature | + + + + + + | Na | 139 | 136 - 149 | [facility] | | | | | mmol/L | [facility] | | | | | | [facility] | | | | | | C[facility] - | | | | | | LABORATORY | | + + + + + + | K | 3.9 | 3.5 - 5.1 | [facility] | | | | | mmol/L | [facility] | | | | | | MEDICAL | | | | | | CENTER - | | | | | | LABORATORY | | + + + + + + | Cl | 103 | 98 - 109 mmol/L | [facility] | | | | | | [facility] | | | | | | [facility] | | | | | | CENTER - | | | | | | LABORATORY | | + + + + + + | CO2 | 28 | 24 - 31 mmol/L | [facility] | | | | | | [facility] | | | | | | MEDICAL | | | | | | CENTER - | | | | | | LABORATORY | | + + + + + + | Anion Gap | 8 | 3 - 16 mmol/L | [facility] | | | | | | [facility] | | | | | | MEDICAL | | | | | | CENTER - | | | | | | LABORATORY | | + + + + + + | Glucose | 145 (H) | 70 - 109 mg/dL | [facility] | | | | | | [facility] | | | | | | MEDICAL | | | | | | CENTER - | | | | | | LABORATORY | | + + + + + + | BUN | 16 | 7 - 18 mg/dL | [facility] | | | | | | [facility] | | | | | | MEDICAL | | | | | | CENTER - | | | | | | LABORATORY | | + + + + + + | Creatinine | 0.79 | 0.60 - 1.30 | [facility] | | | | | mg/dL | [facility] | | | | | | MEDICAL | | | | | | CENTER - | | | | | | LABORATORY | | + + + + + + | eGFR if not | >60Comment: GLOMERULAR | >=60 | [facility] | | | | FILTRATION | mL/min/1.73m2 | [facility] | | | MICRONESIAN | RATE,ESTIMATED | | MEDICAL | | | | mL/min/1.65b3Ylvl than | | CENTER - | | | | 60 Chronic kidney | | LABORATORY | | | | disease,if found over a | | | | | | 3-month period.Less than | | | | | | 15 Kidney failureFor | | | | | | | | | | | | Americans,multiply the | | | | | | calculated GFR by 1.21. | | | | | | | | | | + + + + + + | Calcium | 9.5 | 8.3 - 10.5 | [facility] | | | | | mg/dL | [facility] | | | | | | [facility] | | | | | | CENTER - | | | | | | LABORATORY | | + + + + + + | Albumin | 4.0 | 3.2 - 5.0 g/dL | [facility] | | | | | | [facility] | | | | | | [facility]ICAL | | | | | | CENTER - | | | | | | LABORATORY | | + + + + + + | Bilirubin | 0.5Comment: This is an | 0.1 - 1.5 mg/dL | [facility] | | | Total | appended report. These | | [facility] | | | | results have been | | MEDICAL | | | | appended to a previously | | CENTER - | | | | preliminary verified | | LABORATORY | | | | report. | | | | + + + + + + | Total | 7.2 | 6.0 - 7.8 g/dL | [facility] | | | Protein | | | [facility] | | | | | | MEDICAL | | | | | | CENTER - | | | | | | LABORATORY | | + + + + + + | AST | 20Comment: This is an | 10 - 42 U/L | [facility] | | | | appended report. These | | [facility] | | | | results have been | | MEDICAL | | | | appended to a previously | | CENTER - | | | | preliminary verified | | LABORATORY | | | | report. | | | | + + + + + + | ALT | 16Comment: This is an | 6 - 45 U/L | [facility] | | | | appended report. These | | [facility] | | | | results have been | | MEDICAL | | | | appended to a previously | | CENTER - | | | | preliminary verified | | LABORATORY | | | | report. | | | | + + + + + + | Alkaline | 95Comment: This is an | 40 - 110 U/L | [facility] | | | Phosphatase | appended report. These | | [facility] | | | | results have been | | MEDICAL | | | | appended to a previously | | CENTER - | | | | preliminary verified | | LABORATORY | | | | report. | | | | + + + + + + | Globulin | 3.2 | 2.1 - 3.8 g/dL | [facility] | | | | | | [facility] | | | [facility] | | [facility]ICAL | | | | | | CENTER - | | | | | | LABORATORY | | + + + + + + | Albumin/Nicol | 1.3 | 0.8 - 2.0 | [facility] | | | bulin Ratio | | | [facility] | | | | | | MEDICAL | | | | | | CENTER - | | | | | | LABORATORY | | + + + + + + | BUN/Creatin | 20.3 | | [facility] | | | ine Ratio | | | [facility] | | [...] + | [facility] | [address] | [place] | [phone] | | [facility] | | [address] | | | - LABORATORY | | | | + + + + + CEA (12/04/2016 1:27 PM PST) + +-------+ + + + | Component | Value | Ref Range | Performed | Pathologist | | | | | At | Signature | + +-------+ + + + | CEA | 4.8 | 0.0 - 10.0 | [facility] | | | | | ng/mL | [facility] | | | | | | MEDICAL | | | | | | CENTER - | | | | | | LABORATORY | | + +-------+ + + + + + | Specimen | + + | Blood | + + + + + + + | Performing | Address | City/State/Zipcode | Phone Number | | Organization | | | | + + + + + | [facility] | [address] | [place] | [phone] | | [facility] | | [address] | | | - LABORATORY | | | | + + + + + Ferritin (12/04/2016 1:27 PM PST) + +-------+ + + + | Component | Value | Ref Range | Performed | Pathologist | | | | | At | Signature | + +-------+ + + + | FERRITIN | 11 | 11 - 307 ng/mL | [facility] | | | | | | [facility] | | | | | | MEDICAL | | | | | | CENTER - | | | | | | LABORATORY | | + +-------+ + + + + + | Specimen | + + | Blood | + + + + + + + | Performing | Address | City/State/Zipcode | Phone Number | | Organization | | | | + + + + + | [facility] | [address] | [place], [place] | [phone] | | [facility] | | [address] | | | - LABORATORY | | | | + + + + + Iron and Transferrin (12/04/2016 1:27 PM PST) + +---------+ + + + | Component | Value | Ref Range | Performed | Pathologist | | | | | At | Signature | + +---------+ + + + | Iron | 27 (L) | 40 - 150 ug/dL | [facility] | | | | | | [facility] | | | | | | MEDICAL | | | | | | CENTER - | | | | | | LABORATORY | | + +---------+ + + + | TRANSFERRIN | 264.7 | 240.0 - 480.0 | [facility] | | | | | mg/dL | [facility] | | | | | | MEDICAL | | | | | | CENTER - | | | | | | LABORATORY | | + +---------+ + + + | TIBC | 371 | 235 - 425 ug/dL | [facility] | | | | | | [facility] | | | | | | MEDICAL | | | | | | CENTER - | | | | | | LABORATORY | | + +---------+ + + + | % | 7.3 (L) | 20.0 - 55.0 % | [facility] | | | SATURATION | | | [facility] | | | | | | MEDICAL | | | | | | CENTER - | | | | | | LABORATORY | | + +---------+ + + + + + | Specimen | + + | Blood | + + + + + + + | Performing | Address | City/State/Zipcode | Phone Number | | Organization | | | | + + + + + | [facility] | [address] | [place] | [phone] | | [facility] | | [address] | | | - LABORATORY | | | | + + + + + documented in this encounter Visit Diagnoses + + | Diagnosis | + + | Rectal cancer (HCC) - Primary Malignant neoplasm of rectum | + + | Anemia associated with acute blood loss Acute posthemorrhagic anemia | + + documented in this encounter"
--- OUTSIDE RECORDS SUMMARY | ~2020-02-23 | XMS | Encounter Summary ---
Demographics + + + | Address | [address] [facility] [address] | | | [place] [address] | + + + | Home Phone | | + + + | Preferred Language | Unknown | + + + | Marital Status | Single | + + + | Anabaptism Affiliation | 1041 | + + + | Race | Unknown | + + + | Ethnic Group | Unknown | + + + Author + + + | Author | [facility] | | | and [place] | + + + | Organization | [facility] | | | and [...] Team Providers + +------+ + | Care Prospecting Driller Name | Role | Phone | + +------+ + | Cindy Miramontes MD | PCP | | + +------+ + Encounter Details +--------+ + + + + | Date | Type | Department | Care Team | Description | +--------+ + + + + | 08/05/ | [facility] | [facility] | Frida Oquendo | Rectal cancer (HCC) | | 2014 | Encounter | [facility] | MD Alanis [address] | | | | | ONCOLOGY CLINIC [address] | [place] | | | | | [address] | [address] | | | | | [place] [address] | | | | | | [phone] | | | +--------+ + + + [...] documented as of this encounter Progress Notes Iveth Botello [facility] - 08/06/2014 11:14 AM PDT A/P: No pharmaceutical disease related interactions, drug/drug interactions or lab based ad justments of concern. Emetogenicity risk: Minimal to low Suggested monitoring parameters: Evaluate renal and hepatic function and CBC with different ial at baseline and regularly during therapy. Monitor for diarrhea, hand/foot syndrome, st omatitis, and cardiotoxicity. Teach sexually active female patients the necessity for contra ception. Prescription can be filled at [facility]: yes - filled wit h $10 copay No PA or copay assistance needed. 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 Patient received SIM test 07/06 and has not yet been scheduled for first rad iation treatment, but will likely start next week. Age: 49 years Ht: 166cm Wt: 105.7kg SCr:0.86 Allergies have not been documented on this patient. Oral chemotherapy regimen: 1000mg /m2 Reference/citation for therapy: Colorectal cancer (unlabeled dosing): Oral: 1000 mg/m2 twic e daily (in combination with oxaliplatin) on days 1-14 of a 3-week cycle for 8 or 16 cycles (Miriam, 2008; Samantha, 2011; Kym, 2007) Pertinent Medical History: Patient has history of smoking and alcohol use. Patient is als o on HRT and metformin and is 82% above IBW w/BMI of 38.36 kg/m2. Patient will also be recei ving prochorperazine, lorazepam and loperamide when the capecitabine is initiated. O: Current Outpatient Prescriptions on File Prior to Encounter Medication Sig Dispense Refill aspirin 81 mg chewable tablet Take 81 mg by mouth Daily. CHOLECALCIFEROL 1,000 Units by Does not apply route. FERROUS SULFATE by Does not apply route. 300mg/5ml syrup LISINOPRIL PO Take 10 mg by mouth. medroxyPROGESTERone (PROVERA) 10 mg tablet Take 10 mg by mouth Daily. metFORMIN (GLUCOPHAGE) 500 mg tablet Take 500 mg by mouth 2 times daily (with breakfast & dinner). OMEGA 3 1000 MG CAPS Take by mouth. Current Facility-Administered Medications on File Prior to Encounter Medication Dose Route Frequency Provider Last Rate Last Dose [COMPLETED] iohexol (OMNIPAQUE 350) 350 mg/mL injection 85 mL 85 mL Intravenous Once P EDWIN Horton MD 85 mL at 08/05/14 1149 Labs: Recent Labs Basename 08/05/14 1030 WBC 8.5 PLATELETS -- BILITOT 0.4 CREA 0.86 AST 28 ALT 28 Results for BRYANNA MAC ( ) as of 08/06/2014 11:49 Ref. Range 08/05/2014 10:30 Absolute Neutrophils Latest Range: 1.80-8.50 K/uL 5.20 CrCl: >100 Electronically signed by: Iveth Botello [facility] 08/06/2014 11:39 documented in thi s encounter Plan of Treatment Not on filedocumented as of this encounter Procedures + +--------+ + + + | Procedure Name | Priori | Date/Time | Associated Diagnosis | Comments | | | ty | | | | + +--------+ + + + | CBC WITH | Routin | 08/05/2014 | Rectal cancer | Results for this | | DIFFERENTIAL | e | 10:30 AM | (HCC) | procedure are in the | | | | PDT | | results section. | + +--------+ + + + | CEA | Routin | 08/05/2014 | Rectal cancer | Results for this | | | e | 10:30 AM | (HCC) | procedure are in the | | | | PDT | | results section. | + +--------+ + + + | COMPREHENSIVE | Routin | 08/05/2014 | Rectal cancer | Results for this | | METABOLIC PANEL | e | 10:30 AM | (HCC) | procedure are in the | | | | PDT | | results section. | + +--------+ + + + documented in this encounter Results Comprehensive Metabolic Panel (08/05/2014 10:30 AM PDT) + + + + + + | Component | Value | Ref Range | Performed | Pathologist | | | | | At | Signature | + + + + + + | Na | 135 (L) | 136 - 149 | [facility] | | | | | mmol/L | [facility] | | | | | | MEDICAL | | | | | | CENTER - | | | | | | LABORATORY | | + + + + + + | K | 4.3 | 3.5 - 5.1 | [facility] | [...] + + + + | CO2 | 22 (L) | 24 - 31 mmol/L | [facility] | | | | | | [facility] | | | | | | MEDICAL | | | | | | CENTER - | | | | | | LABORATORY | | + + + + + + | Anion Gap | 10 | 3 - 16 mmol/L | [facility] | | | | | | [facility] | | | | | | MEDICAL | | | | | | CENTER - | | | | | | LABORATORY | | + + + + + + | Glucose | 166 (H) | 70 - 109 mg/dL | [facility] | | | | | | [facility] | | | | | | MEDICAL | | | | | | CENTER - | | | | | | LABORATORY | | + + + + + + | BUN | 15 | 7 - 18 mg/dL | [facility] | | | | | | [facility] | | | | | | MEDICAL | | | | | | CENTER - | | | | | | LABORATORY | | + + + + + + | Creatinine | 0.86 | 0.60 - 1.30 | [facility] | | | | | mg/dL | [facility] | | | | | | MEDICAL | | | | | | CENTER - | | | | | | LABORATORY | | + + + + + + | eGFR if not | >60Comment: GLOMERULAR | >=60 | [facility] | | | | FILTRATION | mL/min/1.73m2 | [facility] | | | [place] | RATE,ESTIMATED | | MEDICAL | | | | mL/min/1.57g8Nmme than | | CENTER - | | [...] + + + + | Calcium | 9.7 | 8.3 - 10.5 | [facility] | | | | | mg/dL | [facility] | | | | | | MEDICAL | | | | | | CENTER - | | | | | | LABORATORY | | + + + + + + | Albumin | 3.8 | 3.2 - 5.0 g/dL | [facility] | | | | | | [facility] | | | | | | MEDICAL | | | | | | CENTER - | | | | | | LABORATORY | | + + + + + + | Bilirubin | 0.4 | 0.1 - 1.5 mg/dL | [facility] | | | Total | | | [facility] | | | | | | MEDICAL | | | | | | CENTER - | | | | | | LABORATORY | | + + + + + + | Total | 7.3 | 6.0 - 7.8 g/dL | [facility] | | | Protein | | | [facility] | | | | | | MEDICAL | | | | | | CENTER - | | | | | | LABORATORY | | + + + + + + | AST | 28 | 10 - 42 U/L | [facility] | | | | | | [facility] | | | | | | MEDICAL | | | | | | CENTER - | | | | | | LABORATORY | | + + + + + + | ALT | 28 | 6 - 45 U/L | [facility] | | | | | | [facility] | | | | | | MEDICAL | | | | | | CENTER - | | | | | | LABORATORY | | + + + + + + | Alkaline | 63 | 40 - 110 U/L | [facility] | | | Phosphatase | | | [facility] | | | | | | MEDICAL | | | | | | CENTER - | | | | | | LABORATORY | | + + + + + + | Globulin | 3.5 | g/dL | [facility] | | | | | | [facility] | | | | | | MEDICAL | | | | | | CENTER - | | | | | | LABORATORY | | + + + + + + | Albumin/Niclo | 1.1 | | [facility] | | | bulin Ratio | | | [facility] | | | | | | MEDICAL | | | | | | CENTER - | | | | | | LABORATORY | | + + + + + + | BUN/Creatin | 17.4 | | [facility] | | | ine [...] + | [facility] | [address] | [place] | [phone] | | [facility] | | [address] | | | - LABORATORY | | | | + + + + + | [facility] | [address] | [place] | | | [facility] | | [id number] | | | - LABORATORY | | | | + + + + + CEA (08/05/2014 10:30 AM PDT) + +-------+ + + + | Component | Value | Ref Range | Performed | Pathologist | | | | | At | Signature | + +-------+ + + + | CEA | 6.5 | 0.0 - 10.0 | [facility] | | | | | ng/mL | [facility] | | | | [...] + | [facility] | [address] | [place], [place] | [phone] | | [facility] | | [address] | | | - LABORATORY | | | | + + + + + | [facility] | [address] | [place], [place] | | | [facility] | | [id number] [place] [address] | | | - LABORATORY | | | | + + + + + CBC with Differential (08/05/2014 10:30 AM PDT) + +-------+ + + + | Component | Value | Ref Range | Performed | Pathologist | | | | | At | Signature | + +-------+ + + + | WBC | 8.5 | 4.0 - 11.0 K/uL | [facility] | | | | | | [facility] | | | | | | MEDICAL | | | | | | CENTER - | | | | | | LABORATORY | | + +-------+ + + + | RBC | 4.84 | 3.70 - 5.20 | [facility] | | | | | M/uL | [facility] | | | | | | MEDICAL | | | | | | CENTER - | | | | | | LABORATORY | | + +-------+ + + + | Hemoglobin | 13.6 | 11.5 - 16.0 | [facility] | | | | | g/dL | [facility] | | | | | | MEDICAL | | | | | | CENTER - | | | | | | LABORATORY | | + +-------+ + + + | Hematocrit | 40.9 | 34.0 - 47.0 % | [facility] | | | | | | [facility] | | | | | | MEDICAL | | | | | | CENTER - | | | | | | LABORATORY | | + +-------+ + + + | MCV | 84.6 | 83.0 - 101.0 fL | [facility] | | | | | | [facility] | | | | | | MEDICAL | | | | | | CENTER - | | | | | | LABORATORY | | + +-------+ + + + | MCH | 28.1 | 28.0 - 35.0 pg | [facility] | | | | | | [facility] | | | | | | MEDICAL | | | | | | CENTER - | | | | | | LABORATORY | | + +-------+ + + + | MCHC | 33.2 | 32.0 - 36.0 | [facility] | | | | | g/dL | [facility] | | | | | | MEDICAL | | | | | | CENTER - | | | | | | LABORATORY | | + +-------+ + + + | RDW-CV | 13.8 | <15.0 % | [facility] | | | | | | [facility] | | | | | | MEDICAL | | | | | | CENTER - | | | | | | LABORATORY | | + +-------+ + + + | Platelet | 237 | 140 - 440 K/uL | [facility] | | | Count | | | [facility] | | | | | | MEDICAL | | | | | | CENTER - | | | | | | LABORATORY | | + +-------+ + + + | MPV | 8.8 | fL | [facility] | | | | | | [facility] | | | | | | MEDICAL | | | | | | CENTER - | | | | | | LABORATORY | | + +-------+ + + + | % | 61.4 | 45.0 - 82.0 % | [facility] | | | Neutrophils | | | [facility] | | | | | | MEDICAL | | | | | | CENTER - | | | | | | LABORATORY | | + +-------+ + + + | % | 29.4 | 20.0 - 45.0 % | [facility] | | | Lymphocytes | | | [facility] | | | | | | MEDICAL | | | | | | CENTER - | | | | | | LABORATORY | | + +-------+ + + + | % Monocytes | 6.7 | 4.0 - 12.0 % | [facility] | | | | | | [facility] | | | | | | MEDICAL | | | | | | CENTER - | | | | | | LABORATORY | | + +-------+ + + + | % | 1.8 | 0.0 - 5.0 % | [facility] | | | Eosinophils | | | [facility] | | | | | | MEDICAL | | | | | | CENTER - | | | | | | LABORATORY | | + +-------+ + + + | % Basophils | 0.7 | 0.0 - 1.0 % | [facility] | | | | | | [facility] | | | | | | MEDICAL | | | | | | CENTER - | | | | | | LABORATORY | | + +-------+ + + + | Absolute | 5.20 | 1.80 - 8.50 | [facility] | | | Neutrophils | | K/uL | [facility] | | | | | | MEDICAL | | | | | | CENTER - | | | | | | LABORATORY | | + +-------+ + + + | Absolute | 2.50 | 0.60 - 3.20 | [facility] | | | Lymphocytes | | K/uL | [facility] | | | | | | MEDICAL | | | | | | CENTER - | | | | | | LABORATORY | | + +-------+ + + + | Absolute | 0.60 | 0.00 - 1.00 | [facility] | | | Monocytes | | K/uL | [facility] | | | | | | MEDICAL | | | | | | CENTER - | | | | | | LABORATORY | | + +-------+ + + + | Absolute | 0.20 | 0.00 - 0.40 | [facility] | | | Eosinophils | | K/uL | [facility] | | | | | | MEDICAL | | | | | | CENTER - | | | | | | LABORATORY | | + +-------+ + + + | Absolute | 0.10 | 0.00 - 0.10 | [facility] | | | Basophils | | K/Padmini | [facility] | | | | [...] + + | [facility] | [address] | [place] | [phone] | | [facility] | | [address] | | | - LABORATORY | | | | + + + + + | [facility] | [address] | [place], [place] | | | [facility] | | [address], [facility] | | | - LABORATORY | | | | + + + + + documented in this encounter Visit Diagnoses + + | Diagnosis | + + | Rectal cancer (HCC) Malignant neoplasm of rectum | + + documented in this encounter"
--- OUTSIDE RECORDS SUMMARY | ~2020-02-23 | XMS | Encounter Summary ---
Demographics + + + | Address | [address] [facility] [address] [address] | | | [place] [address] | + + + | Home Phone | | + + + | Preferred Language | Unknown | + + + | Marital Status | Single | + + + | Orthodoxy Affiliation | 1041 | + + + | Race | Unknown | + + + | Ethnic Group | Unknown | + + + Author + + + | Author | [facility] | | | and [place] | + + + | Organization | [facility] | | [...] Team Providers + +------+ + | Care Glass Cleaning Machine Tender Name | Role | Phone | + [...] | | | | | Procedures | [place], [place] | [address] [place] | | | | | [place] OFFICE | [address] | [facility] [place] | | | | | OUTPATIENT | Phone: | [phone] Phone: | | | | | VISIT 25 | [phone] | [phone] | | | | | MINUTES | Fax: | Fax: | | | | | | [phone] | [phone] | +--------+--------+ + + + + Encounter Details +--------+ + + + + | Date | Type | Department | Care Team | Description | +--------+ + + + + | 08/31/ | Hospital | [facility] | Wing Frank | Rectal cancer (HCC) | | 2014 | Encounter | [facility] | MD Casimiro [address] | (Primary Dx) | | | | ONCOLOGY CLINIC [address] | [address] | | | | | [address] | [place] [address] | | | | | [place] [address] | [phone] | | | | | [phone] | | | +--------+ + + + [...] + + + | Blood Pressure | 154/99 | 08/31/2014 4:15 PM | | | | | PST | | + + + + + | Pulse | 89 | 08/31/2014 4:15 PM | | | | | PST | | + + + + + | Temperature | 36.6 C (97.9 F) | 08/31/2014 4:15 PM | | | | | PST | | + + + + + | Respiratory Rate | 18 | 08/31/2014 4:15 PM | | | | | PST | | + + + + + | Oxygen Saturation | 99% | 08/31/2014 4:15 PM | | | | | PST | | + + + + + | Inhaled Oxygen | - | - | | | Concentration | | | | + + + + + | Weight | - | - | | + + + + + | Height | - | - | | + + + + + | Body Mass Index | - | - | | + [...] encounter Progress Notes Wing Frank MD - 08/31/2014 4:59 PM PSTFormatting of this note might be diff erent from the original. Patient is a 49 y.o. female seen today, 08/31/2014, for chemotherapy with capecitabine for rectal carcinoma. Today is day 3/week 2 of therapy. Patient complaints: dry feet, tenesmus Symptoms are gradually worsening during the past 24 hours. Advance Directives: not addressed Appropriate portions of the patient's past medical, surgical, family, and social history we re reviewed and updated. Review of Systems Constitutional: Denies fatigue. Denies high fevers, shaking chills, anorexia, vomiting, najma ght loss, or night sweats. Appetite without changes. Pt states her taste to food has changed , and a few days of nausea. Ear, Nose, Mouth, Throat: Denies odynophagia, dysphagia, or tinnitus. Cardiovascular: Pt reports shortness of breath, dyspnea on exertion. Denies chest pain, pal pitations or orthopnea. Respiratory: Denies cough, hemoptysis, or sputum production. Gastrointestinal: Denies abdominal pain, constipation, diarrhea, melena, or bright red bloo d per rectum. Pt reports some mild constipation, and one day of diarrhea. Genitourinary: Denies hematuria or dysuria. Musculoskeletal: Denies joint pain or tenderness. Neurologic: Denies headache, visual changes, or numbness/tingling of the extremities. Pt re ports occasional headaches and states its from the antinausea medication. Endocrine: Denies peripheral edema or heat/cold intolerance. Pt reports occasional edema in the left lower leg. Hematologic: Denies spontaneous bruising or bleeding. Integumentary: Denies rash, wounds or other skin concerns. Pain: Denies pain. Objective: BP 154/99 | Pulse 89 | Temp 36.6 C (97.9 F) (Oral) | Resp 18 | SpO2 99% General appearance: alert, appears stated age and cooperative Data Review CBC: Lab Results Component Value Date WBC 4.3 08/31/2014 RBC 4.66 08/31/2014 BMP: Lab Results Component Value Date CO2 22* 08/05/2014 BUN 15 08/05/2014 CALCIUM 9.7 08/05/2014 Assessment: Active Problems: 1. Rectal cancer (HCC) Plan: The patient has a documented plan of care to address pain. Discussion concerning measures to help mitigate hand-foot syndrome such as the use of polyp ropylene liner socks to keep feet dry. Reminder concerning use of Capecitidine during times of radiation. Over the iday patient may take off from treatment. Discussion concerning use of stool softeners as a means of helping with completeness of rec dung evacuation. Two-week followup. Wing Frank Julee Sloan, TRANSPORTATION OPERATIONS MANAGER - 08/31/2014 4:16 PM PSTREVIEW OF SYSTEMS Constitutional: Denies fatigue. Denies high fevers, shaking chills, anorexia, vomiting, we ight loss, or night sweats. Appetite without changes. Pt states her taste to food has ennis ed, and a few days of nausea. Ear, Nose, Mouth, Throat: Denies odynophagia, dysphagia, or tinnitus. Cardiovascular: Pt reports shortness of breath, dyspnea on exertion. Denies chest pain, p alpitations or orthopnea. Respiratory: Denies cough, hemoptysis, or sputum production. Gastrointestinal: Denies abdominal pain, constipation, diarrhea, melena, or bright red bloo d per rectum. Pt reports some mild constipation, and one day of diarrhea. Genitourinary: Denies hematuria or dysuria. Musculoskeletal: Denies joint pain or tenderness. Neurologic: Denies headache, visual changes, or numbness/tingling of the extremities. Pt re ports occasional headaches and states its from the antinausea medication. Endocrine: Denies peripheral edema or heat/cold intolerance. Pt reports occasional edema in the left lower leg. Hematologic: Denies spontaneous bruising or bleeding. Integumentary: Denies rash, wounds or other skin concerns. Pain: Denies pain. Note:Pt is here for follow up and labs. My chart: documented in this encounter Plan of Treatment Not on filedocumented as of this encounter Procedures + +--------+ + + + | Procedure Name | Priori | Date/Time | Associated Diagnosis | Comments | | | ty | | | | + +--------+ + + + | CBC W/AUTO | STAT | 08/31/2014 | Rectal cancer | Results for this | | DIFFERENTIAL | | 3:16 PM | (HCC) | procedure are in the | | | | PST | | results section. | + +--------+ + + + documented in this encounter Results CBC w/ Auto Differential (08/31/2014 3:16 PM PST) + +-------+ + + + | Component | Value | Ref Range | Performed | Pathologist | | | | | At | Signature | + +-------+ + + + | WBC | 4.3 | 4.0 - 11.0 K/uL | [facility] | | | | | | [facility] | | | | | | MEDICAL | | | | | | CENTER - | | | | | | LABORATORY | | + +-------+ + + + | RBC | 4.66 | 3.70 - 5.20 | [facility] | | | | | M/uL | [facility] | | | | | | MEDICAL | | | | | | CENTER - | | | | | | LABORATORY | | + +-------+ + + + | Hemoglobin | 13.5 | 11.5 - 16.0 | [facility] | | | | | g/dL | [facility] | | | | | | MEDICAL | | | | | | CENTER - | | | | | | LABORATORY | | + +-------+ + + + | Hematocrit | 39.7 | 34.0 - 47.0 % | [facility] | | | | | | [facility] | | | | | | MEDICAL | | | | | | CENTER - | | | | | | LABORATORY | | + +-------+ + + + | MCV | 85.2 | 83.0 - 101.0 fL | [facility] | | | | | | [facility] | | | | | | MEDICAL | | | | | | CENTER - | | | | | | LABORATORY | | + +-------+ + + + | MCH | 29.0 | 28.0 - 35.0 pg | [facility] | | | | | | [facility] | | | | | | MEDICAL | | | | | | CENTER - | | | | | | LABORATORY | | + +-------+ + + + | MCHC | 34.0 | 32.0 - 36.0 | [facility] | | | | | g/dL | [facility] | | | | | | MEDICAL | | | | | | CENTER - | | | | | | LABORATORY | | + +-------+ + + + | RDW-CV | 14.2 | <15.0 % | [facility] | | | | | | [facility] | | | | | | MEDICAL | | | | | | CENTER - | | | | | | LABORATORY | | + +-------+ + + + | Platelet | 175 | 140 - 440 K/uL | [facility] | | | Count | | | [facility] | | | | | | MEDICAL | | | | | | CENTER - | | | | | | LABORATORY | | + +-------+ + + + | MPV | 7.5 | fL | [facility] | | | | | | [facility] | | | | | | MEDICAL | | | | | | CENTER - | | | | | | LABORATORY | | + +-------+ + + + | % | 62.8 | 45.0 - 82.0 % | [facility] | | | Neutrophils | | | [facility] | | | | | | MEDICAL | | | | | | CENTER - | | | | | | LABORATORY | | + +-------+ + + + | % | 24.4 | 20.0 - 45.0 % | [facility] | | | Lymphocytes | | | [facility] | | | | | | MEDICAL | | | | | | CENTER - | | | | | | LABORATORY | | + +-------+ + + + | % Monocytes | 10.3 | 4.0 - 12.0 % | [facility] | | | | | | [facility] | | | | | | MEDICAL | | | | | | CENTER - | | | | | | LABORATORY | | + +-------+ + + + | % | 2.3 | 0.0 - 5.0 % | [facility] [...] +-------+ + + + | Absolute | 2.70 | 1.80 - 8.50 | [facility] | | | Neutrophils | | K/uL | [facility] | | | | | | MEDICAL | | | | | | CENTER - | | | | | | LABORATORY | | + +-------+ + + + | Absolute | 1.00 | 0.60 - 3.20 | [facility] | | | Lymphocytes | | K/uL | [facility] | | | | | | MEDICAL | | | | | | CENTER - | | | | | | LABORATORY | | + +-------+ + + + | Absolute | 0.40 | 0.00 - 1.00 | [facility] | | | Monocytes | | K/uL | [facility] | [...] +-------+ + + + | Absolute | 0.00 | 0.00 - 0.10 | [facility] | | | Basophils | | K/uL | [facility] | | | | | [...] [address] | [place] | [phone] | | [facility] | | [address] | | | - LABORATORY | | | | + + + + + | [facility] | [address] | [place] | | | [facility] | | [address], [facility] | | | - LABORATORY | | | | + + + + + documented in this encounter Visit Diagnoses + + | Diagnosis | + + | Rectal cancer (HCC) - Primary Malignant neoplasm of rectum | + + documented in this encounter"
--- OUTSIDE RECORDS SUMMARY | ~2020-02-23 | XMS | Encounter Summary ---
Demographics + + + | Address | [address] [facility] [address] [address] | | | [place] [address] | + + + | Home Phone | | + + + | Preferred Language | Unknown | + + + | Marital Status | Single | + + + | Protestant Affiliation | 1041 | + + + | Race | Unknown | + + + | Ethnic Group | Unknown | + + + Author + + + | Author | [facility] | | | and [place] | + + + | Organization | [facility] | | | [...] Team Providers + +------+ + | Care Leather Sprayer Name | Role | Phone | + +------+ + | Cindy Mriamontes MD | PCP | | + +------+ + Encounter Details +--------+ + + + + | Date | Type | Department | Care Team | Description | +--------+ + + + + | 09/17/ | Orders Only | [facility] | Frida Oquendo | Proctitis (Primary | | 2014 | | [facility] | M, [address] | Dx) | | | | ONCOLOGY [address] [facility] [place] | | | | | [place], | [address] | | | | | [place] [address] | | | | | | [phone] | | | +--------+ + + + [...] + | Diagnosis | + + | Proctitis - Primary Other specified disorder of rectum and anus | + + documented in this encounter"
--- OUTSIDE RECORDS SUMMARY | ~2020-02-23 | XMS | Encounter Summary ---
Demographics + + + | Address | [address] [facility] [address] | | | [place] [address] | + + + | Home Phone | | + + + | Preferred Language | Unknown | + + + | Marital Status | Single | + + + | Gnosticist Affiliation | 1041 | + + + | Race | Unknown | + + + | Ethnic Group | Unknown | + + + Author + + + | Author | [facility] | | | and [place] | + + + | Organization | [facility] | | | and [place] | + + + | Address | Unknown | + + + | Phone | Unavailable | + + + Support + + +---------+ + | Name | Relationship | Address | Phone | + + +---------+ + | Samantabenjie Stephenson | ECON | Unknown | | + + +---------+ + Care Team Providers + +------+ + | Care Verification Engineer Name | Role | Phone | [...] | +--------+ + + + + | 04/18/ | Telephone | [facility] | [facility] | Other | | 2018 | | [facility] | MD Casimiro [address] | | | | | [facility] CLIN[facility] [address] | [address] [place] | | | | | [address] [place] | [place] [address] | | | | | [place] [address] | [phone] | | | | | [phone] | | | +--------+ + + + [...]
--- OUTSIDE RECORDS SUMMARY | ~2020-02-23 | XMS | Encounter Summary ---
Demographics + + + | Address | [address] [facility] [address] | | | [place] [address] | + + + | Home Phone | | + + + | Preferred Language | Unknown | + + + | Marital Status | Single | + + + | Lutheran Affiliation | 1041 | + + + | Race | Unknown | + + + | Ethnic Group | Unknown | + + + Author + + + | Author | [facility] | | | and [place] | + + + | Organization | [facility] | | | [...] Providers + +------+ + | Care Supervisor Files Name | Role | Phone | + +------+ + | Kera Hernandez PA-C | PCP | | + +------+ + Encounter Details +--------+ + + + + | Date | Type | Department | Care Team | Description | +--------+ + + + + | 04/08/ | Orders Only | [facility] | Piper Ayala, | | | 2018 | | [facility] | Automobile Radio Repairer | | | | | ONCOLOGY CLINIC [address] | | | | | | [address] | | | | | | [place] [address] | | | | | | [phone] | | | +--------+ + + + [...]
--- OUTSIDE RECORDS SUMMARY | ~2020-02-23 | XMS | Encounter Summary ---
Demographics + + + | Address | [address] [facility] [address] | | | [place] [address] | + + + | Home Phone | | + + + | Preferred Language | Unknown | + + + | Marital Status | Single | + + + | Nondenominational Affiliation | 1041 | + + + | Race | Unknown | + + + | Ethnic Group | Unknown | + + + Author + + + | Author | [facility] | | | and [place] | + + + | Organization | [facility] | | | [...] Team Providers + +------+ + | Care Air Cargo Specialist Supervisor Name | Role | Phone | [...] Closed | | Radiology | Diagnoses | Azra | [facility] | | | | | Rectal | Frida Thapa, | [address] | | | | | cancer (HCC) | MD [address] | [place], | | | | | Procedures | [address] | [place] | | | | | MRI Pelvis | [place], | [address] | | | | | w wo | [place] [address] | Phone: | | | | | Contrast | Phone: | [phone] | | | | | | [phone] | Fax: | | | | | | Fax: | [phone] | | | | | | [phone] | | +--------+--------+ + + + + Reason for Visit Diagnostic/Screening (Routine) +--------+--------+ + + + + | Status | Reason | Specialty | Diagnoses / | Referred By | Referred To | | | | | Procedures | Contact | Contact | +--------+--------+ + + + + | Closed | | Radiology | Diagnoses | Riegert, | [facility] | | | | | Rectal | Frida M, | [address] | | | | | cancer (HCC) | MD [address] | [place], | | | | | Procedures | [address] | [place] | | | | | MRI Pelvis | [place], | [address] | | | | | w wo | [place] [address] | Phone: | | | | | Contrast | Phone: | [phone] | | | | | | [phone] | Fax: | | | | | | Fax: | [phone] | | | | | | [phone] | | +--------+--------+ + + + + Encounter Details +--------+ + + + + | Date | Type | Department | Care Team | Description | +--------+ + + + + | 08/10/ | Hospital | [facility] | Frida Oquendo | Rectal cancer (HCC) | | 2013 | Encounter | MED CTR MRI [address] | MMD [address] | | | | | [place], | [place], [place] | | | | | [place] [address] | [address] | | | | | [phone] | | | +--------+ + + + [...] | + +--------+ + + + | MRI PELVIS W WO | Routin | 08/10/2014 | Rectal cancer | Results for this | | CONTRAST | e | 11:59 AM | (HCC) | procedure are in the | | | | PDT | | results section. | + +--------+ + + + documented in this encounter Results MRI Pelvis w wo Contrast (08/10/2014 11:59 AM PDT) + + | Specimen | + + | | + + + + + | Narrative | Performed At | + + + | MRI PELVIS W WO CONTRAST 08/10/2014 11:43 AM HISTORY: Rectal | MISCELANIOUS | | cancer staging and radiation planning. COMPARISON: CT treatment | LAB | | planning dated 08/05/2014, CT scan of the pelvis dated 07/05/2014. | | | PROTOCOL: Axial STIR, sagittal T2, sagittal T1, axial T2, coronal T2, | | | axial T1, axial proton density fat sat, coronal T1 fat sat VIBE, | | | axial T1 fat sat VIBE, axial T1 VIBE postcontrast, coronal T1 VIBE | | | postcontrast, sagittal T1 fat sat postcontrast, axial T1 | | | postcontrast. The patient was missed her 10 cc Gadavist. FINDINGS: | | | Circumferential thickening of the rectal wall is seen with | | | intermediate T1 signal, mildly increased T2 signal, and patchy | | | heterogeneous enhancement. The size of the lesion is 3.1 x 4.2 x 3.2 | | | cm (AP, transverse, craniocaudal) with maximum wall thickness of 1.4 | | | cm. There is no evidence for extension beyond the wall of the rectum. | | | No abnormal enhancement is visualized within the omentum in this | | | region. There is a small lymph node in the right lateral pelvis that | | | measures 0.6 cm, which is below the threshold to suspect metastatic | | | disease. The bladder has a normal appearance. The uterus is | | | anteverted. The ovaries are not definitively seen. Vasculature are | | | normal. No enlarged lymph node nodes are seen within the pelvis. The | | | osseous structures show normal signal with no evidence for metastatic | | | disease. IMPRESSION - Circumferential thickening of rectal wall | | | consistent with history of rectal cancer with no evidence for | | | extension beyond the wall or metastatic disease. Dictated and | | | Signed by: Bubba Hutchinson MD Electronically signed: 08/10/2014 4:35 | | | PM | | + + + + + | Procedure Note | + + | Gianni, Rad Results In - 08/10/2014 4:38 PM PDT MRI PELVIS W WO CONTRAST 08/10/2014 | | 11:43 AMHISTORY: Rectal cancer staging and radiation planning.COMPARISON: CT treatment | | planning dated 08/05/2014, CT scan of the pelvis dated07/05/2014.PROTOCOL: Axial STIR, | | sagittal T2, sagittal T1, axial T2, coronal T2, axial T1,axial proton density fat sat, | | coronal T1 fat sat VIBE, axial T1 fat sat VIBE,axial T1 VIBE postcontrast, coronal T1 | | VIBE postcontrast, sagittal T1 fat satpostcontrast, axial T1 postcontrast. The patient | | was missed her 10 cc Gadavist.FINDINGS:Circumferential thickening of the rectal wall is | | seen with intermediate [id number], mildly increased T2 signal, and patchy heterogeneous | | enhancement. Thesize of the lesion is 3.1 x 4.2 x 3.2 cm (AP, transverse, craniocaudal) | | withmaximum wall thickness of 1.4 cm. There is no evidence for extension beyond thewall | | of the rectum. No abnormal enhancement is visualized within the omentum inthis region. | | There is a small lymph node in the right lateral pelvis thatmeasures 0.6 cm, which is | | below the threshold to suspect metastatic disease.The bladder has a normal appearance. | | The uterus is anteverted. The ovaries arenot definitively seen. Vasculature are normal. | | No enlarged lymph node nodes areseen within the pelvis. The osseous structures show | | normal signal with noevidence for metastatic disease.IMPRESSION -Circumferential | | thickening of rectal wall consistent with history of rectalcancer with no evidence for | | extension beyond the wall or metastatic disease.Dictated and Signed by: Bubba Hutchinson MD | | Electronically signed: 08/10/2014 4:35 PM | |measures 0.6 cm, which is below the threshold to suspect metastatic disease. | | | |The bladder has a normal appearance. The uterus is anteverted. The ovaries are | |not definitively seen. Vasculature are normal. No enlarged lymph node nodes are | |seen within the pelvis. The osseous structures show normal signal with no | |evidence for metastatic disease. | | | |IMPRESSION - | |Circumferential thickening of rectal wall consistent with history of rectal | |cancer with no evidence for extension beyond the wall or metastatic disease. | | | |Dictated and Signed by: Bubba Hutchinson MD | | Electronically signed: 08/10/2014 4:35 PM | + + + +---------+ + + | Performing | Address | City/State/Zipcode | Phone Number | | Organization | | | | + +---------+ + + | MISCELLANEOUS LAB | | | [phone] | + +---------+ + + | MISCELANIOUS LAB | | | [phone] | + +---------+ + + documented in [...] | | | + +--------+ +--------+------+------+ | gadobutrol (GADAVIST) injection | Given | 08/10/20 | 10 mLs | | | | 10 mL 10 mL, Intravenous, ONCE | | 14 11:59 | | | | | JUSTINA, Other, Starting 08/10/14 | | AM PDT | | | | | at 1144, For 1 dose, MRI | | | | | | + +--------+ +--------+------+------+ +---+---+ | | | +---+---+ documented in this encounter"
--- OUTSIDE RECORDS SUMMARY | ~2020-02-23 | XMS | Encounter Summary ---
Demographics + + + | Address | [address] [facility] [address] | | | [place] [address] | + + + | Home Phone | | + + + | Preferred Language | Unknown | + + + | Marital Status | Single | + + + | Buddhist Affiliation | 1041 | + + + | Race | Unknown | + + + | Ethnic Group | Unknown | + + + Author + + + | Author | [facility] | | | and [place] | + + + | Organization | [facility] | | | and [...] Team Providers + +------+ + | Care Rn Heart Name | Role | Phone | + +------+ + | Kera Hernandez PA-C | PCP | | + +------+ + Reason for Visit +--------+ + | Reason | Comments | +--------+ + | Other | | +--------+ + Encounter Details +--------+ + + + + | Date | Type | Department | Care Team | Description | +--------+ + + + + | 06/11/ | Telephone | [facility] | [facility] | Other | | 2018 | | [facility] | MD Casimiro [address] | | | | | ON[facility]OGY CLINIC [address] | [address] [place] | | | | | [address] [place] | [place] [address] | | | | | [place] [address] | [phone] | | | | | [phone] | | | +--------+ + + + [...]
--- OUTSIDE RECORDS SUMMARY | ~2020-02-23 | XMS | Encounter Summary ---
Demographics + + + | Address | [address] [facility] [address] | | | [place] [address] | + + + | Home Phone | | + + + | Preferred Language | Unknown | + + + | Marital Status | Single | + + + | Mormon Affiliation | 1041 | + + + | Race | Unknown | + + + | Ethnic Group | Unknown | + + + Author + + + | Author | [facility] | | | and [place] | + + + | Organization | [facility] | | [...] Team Providers + +------+ + | Care Video Systems Engineer Name | Role | Phone | [...] | +--------+ + + + + | 08/27/ | Telephone | [facility] | [facility] | Other | | 2013 | | [facility] | MD Casimiro [address] | | | | | ONCOLOGY CLINIC [address] | [address] [place] | | | | | [address] [place] | [place] [address] | | | | | [place] [address] | [phone] | | | | | [phone] | | | +--------+ + + + [...]
--- OUTSIDE RECORDS SUMMARY | ~2020-02-23 | XMS | Encounter Summary ---
Demographics + + + | Address | [address] [facility] [address] | | | [place] [address] | + + + | Home Phone | | + + + | Preferred Language | Unknown | + + + | Marital Status | Single | + + + | Restorationism Affiliation | 1041 | + + + | Race | Unknown | + + + | Ethnic Group | Unknown | + + + Author + + + | Author | [facility] | | | and [place] | + + + | Organization | [facility] | | | and [place] | + + + | Address | Unknown | + + + | Phone | Unavailable | + + + Support + + +---------+ + | Name | Relationship | Address | Phone | + + +---------+ + | Samantadonte Stephenson | ECON | Unknown | | + + +---------+ + Care Team Providers + +------+ + | Care Soil Technologist Name | Role | Phone | + +------+ + | Cindy Miramontes MD | PCP | | + +------+ + Encounter Details +--------+ + + + + | Date | Type | Department | Care Team | Description | +--------+ + + + + | 02/07/ | Documentati | [facility] | Dayna Guy | | | 2014 | on | MED CNT ONCOLOGY | A, OT | | | | | THERAPY [address] | | | | | | [place], | | | | | | [place] [address] | | | | | | [phone] | | | +--------+ + + + [...] documented as of this encounter Progress Notes Dayna Guy, OT - 02/07/2015 10[facility] [address] [place] [address] Oncology Rehab Screening Date: 02/07/2015 Patient Information Patient Name: Fang Stephenson Date of : 1965 Age: 49 y.o. Patient was seen for oncology rehab screening due to new patient consult. Patient currently being treated for rectal ca and treatment regimen includes chemotherapy and radiation. Patient is stating difficulties with fatigue, chemo induced neuropathy, occ decreased iveth ce, cognitive/concentration changes and was provided education in CRF, chemo brain, sensory stimulation for hands/feet, and activity levels during treatment. Discussed with patient te 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 Also discussed benefit of increasing activity level, ie. Including daily walk, to jarrett fatigue and help endurance. Patient do es report some longstanding difficulties w/ balance d/t a concussion she endured approx 1 ye ar ago. She reports she has a cane. Encouraged patient to utilize AE as needed to increase safety, especially when ambulating on uneven surfaces or on days when she is feeling weaker d/t treatment. Also recommended she consider obtaining a stool for the shower for max safe ty; she reports already has grab bars in place. Discussed availability of treadmill in onco logy rehab if patient would like to walk in clinic and also recommended option of exs for HE P for LB strengthening. Patient hesitant for HEP at this time. Will plan to follow-up at a later date for possible HEP instruction. May benefit from OP therapy referral after treatm ent if patient conts to have c/o weakness and balance instability - will monitor. Will have follow up visit in cancer center.; will consider OP referral pending outcome of p hysical status further along in treatment as patient is hesitant towards intervention at thi s time. Electronically signed by: Dayna Guy OT, 02/07/2015 10:58 Patient Name: Fang Stephenson/: 1965/ documented in this encounter Plan of Treatment Not on filedocumented as of this encounter Visit Diagnoses Not on filedocumented in this encounter"
--- OUTSIDE RECORDS SUMMARY | ~2020-02-23 | XMS | Encounter Summary ---
Demographics + + + | Address | [address] [facility] [address] | | | [place] [address] | + + + | Home Phone | | + + + | Preferred Language | Unknown | + + + | Marital Status | Single | + + + | Mandaen Affiliation | 1041 | + + + | Race | Unknown | + + + | Ethnic Group | Unknown | + + + Author + + + | Author | [facility] | | | and [place] | + + + | Organization | [facility] | | | [...] Team Providers + +------+ + | Care Windows Server Engineer Name | Role | Phone | [...] cancer (HCC) | MD [address] | [place], | | | | | Procedures | [address] | [place] [address] | | | | | [place] | [place], | Phone: | | | | | Treatment | [place] [address] | [phone] | | | | | Plan Complex | Phone: | Fax: | | | | | CHG | [phone] | [phone] | | | | | RESPIRATORY | Fax: | | | | | | MOTION | [phone] | | | | | | MANAGEMENT [...] | | | | | | | [place], | | | | | | | [place] [address] | | | | | | | Phone: | | | | | | | [phone] | | | | | | | Fax: | | | | | | | [phone] | +--------+--------+ + + + + Encounter Details +--------+ + + + + | Date | Type | Department | Care Team | Description | +--------+ + + + + | [facility] | Frida Oquendo | Rectal cancer (HCC) | | 2013 | Encounter | MED CTR CT [address] | MD Alanis [address] | | | | | [place], | [place], [place] | | | | | [place] [address] | [id number] | | | | | [phone] | | | +--------+ + + + [...] PDT | | | | | Starting [facility] 08/05/14 at 1134, | | | | | | | For 1 dose, Cat Scanner | | | | | | + +--------+ +--------+------+------+ +---+---+ | | | +---+---+ documented in this encounter"
--- OUTSIDE RECORDS SUMMARY | ~2020-02-23 | XMS | Encounter Summary ---
Demographics + + + | Address | [address] [facility] [address] | | | [place] [address] | + + + | Home Phone | | + + + | Preferred Language | Unknown | + + + | Marital Status | Single | + + + | Yazidism Affiliation | 1041 | + + + | Race | Unknown | + + + | Ethnic Group | Unknown | + + + Author + + + | Author | [facility] | | | and [place] | + + + | Organization | [facility] | | [...] Team Providers + +------+ + | Care Material Dispatcher Name | Role | Phone | + [...] + + + + | 09/17/ | Telephone | [facility] | [facility] | Other | | 2016 | | [facility] | MD Casimiro [address] | | | | | ON[facility]OGY CLINIC [address] | [address] [place] | | | | | [address] [place] | [place] [address] | | | | | [place] [address] | [phone] | | | | | [phone] | | | +--------+ + + + [...]
--- OUTSIDE RECORDS SUMMARY | ~2020-02-23 | XMS | Encounter Summary ---
Demographics + + + | Address | [address] [facility] [address] | | | [place] [address] | + + + | Home Phone | | + + + | Preferred Language | Unknown | + + + | Marital Status | Single | + + + | Congregational Affiliation | 1041 | + + + | Race | Unknown | + + + | Ethnic Group | Unknown | + + + Author + + + | Author | [facility] | | | and [place] | + + + | Organization | [facility] | | [...] Team Providers + +------+ + | Care Smocking Machine Operator Name | Role | Phone | + +------+ + | Kera Hernandez PA-C | PCP | | + +------+ + Encounter Details +--------+ + + + + | Date | Type | Department | Care Team | Description | +--------+ + + + + | 01/29/ | [facility] | [facility] | [facility] | Rectal cancer (HCC) | | 2019 | Encounter | [facility] | MD Casimiro [address] | (Primary Dx) | | | | [facility]OGY CLINIC [address] | [address] | | | | | [address] | [place] [address] | | | | | [place] [address] | [phone] | | | | | [phone] | | | +--------+ + + + [...] | IRON AND TRANSFERRIN | STAT | 01/29/2019 | Rectal cancer | Results for this | | | | 10:33 AM | (HCC) | procedure are in the | | | | PDT | | results section. | + +--------+ + + + | CBC WITH | STAT | 01/29/2019 | Rectal cancer | Results for this | | DIFFERENTIAL | | 10:33 AM | (HCC) | procedure are in the | | | | PDT | | results section. | + +--------+ + + + | FERRITIN | STAT | 01/29/2019 | Rectal cancer | Results for this | | | | 10:33 AM | (HCC) | procedure are in the | | | | PDT | | results section. | + +--------+ + + + | CEA | STAT | 01/29/2019 | Rectal cancer | Results for this | | | | 10:33 AM | (HCC) | procedure are in the | | | | PDT | | results section. | + +--------+ + + + | COMPREHENSIVE | STAT | 01/29/2019 | Rectal cancer | Results for this | | METABOLIC PANEL | | 10:33 AM | (HCC) | procedure are in the | | | | PDT | | results section. | + +--------+ + + + documented in this encounter Results CEA (01/29/2019 10:33 AM PDT) + +-------+ + + + | Component | Value | Ref Range | Performed | Pathologist | | | | | At | Signature | + +-------+ + + + | CEA | 4.6 | 0.0 - 10.0 | [facility] | [...] [address] | [place] | [phone] | | [facility] | | [address] | | | - LABORATORY | | | | + + + + + Ferritin (01/29/2019 10:33 AM PDT) + +-------+ + + + | Component | Value | Ref Range | Performed | Pathologist | | | | | At | Signature | + +-------+ + + + | FERRITIN | 22 | 7 - 271 ng/mL | [facility] | | | | | | [facility] [...] [address] | [place] | [phone] | | [facility] | | [address] | | | - LABORATORY | | | | + + + + + Iron and Transferrin (01/29/2019 10:33 AM PDT) + + + + + + | Component | Value | Ref Range | Performed | Pathologist | | | | | At | Signature | + + + + + + | Iron | 34 (L) | 50 - 170 ug/dL | [facility] | | | | | | [facility] | | | | | | MEDICAL | | | | | | CENTER - | | | | | | LABORATORY | | + + + + + + | TRANSFERRIN | 225.0 (L) | 250.0 - 380.0 | [facility] | | | | | mg/dL | [facility] | | | | | | MEDICAL | | | | | | CENTER - | | | | | | LABORATORY | | + + + + + + | TIBC | 315 | 235 - 425 ug/dL | [facility] | | | | | | [facility] | | | | | | MEDICAL | | | | | | CENTER - | | | | | | LABORATORY | | + + + + + + | % | 10.8 (L) | 15.0 - 50.0 % | [facility] | | | SATURATION | | | [facility] | | [...] [address] | [place] | [phone] | | [facility] | | [address] | | | - LABORATORY | | | | + + + + + Comprehensive Metabolic Panel (01/29/2019 10:33 AM PDT) + + + + + + | Component | Value | Ref Range | Performed | Pathologist | | | | | At | Signature | + + + + + + | Na | 135 (L) | 136 - 145 | [facility] | | | | | mmol/L | [facility] | | | | | | MEDICAL | | | | | | CENTER - | | | | | | LABORATORY | | + + + + + + | K | 4.4 | 3.4 - 5.1 | [facility] | | | | | mmol/L | [facility] | | | | | | MEDICAL | | | | | | CENTER - | | | | | | LABORATORY | | + + + + + + | Cl | 104 | 98 - 107 mmol/L | [facility] | | | | | | [facility] | | | | | | MEDICAL | | | | | | CENTER - | | | | | | LABORATORY | | + + + + + + | CO2 | 24 | 20 - 31 mmol/L | [facility] | | | | | | [facility] | | | | | | MEDICAL | | | | | | CENTER - | | | | | | LABORATORY | | + + + + + + | Anion Gap | 7 | 3 - 16 mmol/L | [facility] | | | | | | [facility] | | | | | | MEDICAL | | | | | | CENTER - | | | | | | LABORATORY | | + + + + + + | Glucose | 109 (H) | 60 - 106 mg/dL | [facility] | | | | | | [facility] | | | | | | MEDICAL | | | | | | CENTER - | | | | | | LABORATORY | | + + + + + + | BUN | 20 | 9 - 23 mg/dL | [facility] | | | | | | [facility] | | | | | | MEDICAL | | | | | | CENTER - | | | | | | LABORATORY | | + + + + + + | Creatinine | 0.89 | 0.55 - 1.02 | [facility] | | | | | mg/dL | [facility] | | | | | | MEDICAL | | | | | | CENTER - | | | | | | LABORATORY | | + + + + + + | eGFR if not | >60Comment: GLOMERULAR | >=60 | [facility] | | | | FILTRATION | mL/min/1.73m2 | [facility] | | | CYPRIOT | RATE,ESTIMATED | | MEDICAL | | | | mL/min/1.36w3Uuee than | | CENTER - | | [...] + + + + | Calcium | 10.1 | 8.7 - 10.4 | [facility] | | | | | mg/dL | [facility] | | | | | | MEDICAL | | | | | | CENTER - | | | | | | LABORATORY | | + + + + + + | Albumin | 4.5 | 3.2 - 4.8 g/dL | [facility] | | | | | | [facility] | | | | | | MEDICAL | | | | | | CENTER - | | | | | | LABORATORY | | + + + + + + | Bilirubin | 0.3 | 0.3 - 1.2 mg/dL | [facility] | | | Total | | | [facility] | | | | | | MEDICAL | | | | | | CENTER - | | | | | | LABORATORY | | + + + + + + | Total | 6.9 | 5.7 - 8.2 g/dL | [facility] | | | Protein | | | [facility] | | | | | | MEDICAL | | | | | | CENTER - | | | | | | LABORATORY | | + + + + + + | AST | 26 | 0 - 34 U/L | [facility] | | | | | | [facility] | | | | | | MEDICAL | | | | | | CENTER - | | | | | | LABORATORY | | + + + + + + | ALT | 26 | 10 - 49 U/L | [facility] | | | | | | [facility] | | | | | | MEDICAL | | | | | | CENTER - | | | | | | LABORATORY | | + + + + + + | Alkaline | 126 (H) | 46 - 116 U/L | [facility] | | | Phosphatase | | | [facility] | | | | | | MEDICAL | | | | | | CENTER - | | | | | | LABORATORY | | + + + + + + | Globulin | 2.4 | 2.1 - 3.8 g/dL | [facility] | | | | | | [facility] | | | | | | MEDICAL | | | | | | CENTER - | | | | | | LABORATORY | | + + + + + + | Albumin/Niocl | 1.9 | 0.8 - 1.9 | [facility] | | | bulin Ratio | | | [facility] | | | | | | MEDICAL | | | | | | CENTER - | | | | | | LABORATORY | | + + + + + + | BUN/Creatin | 22.5 | | [facility] | | | ine [...] ST. | [address] | [place], [place] | [phone] | | [facility] | | [address] | | | - LABORATORY | | | | + + + + + CBC with Differential (01/29/2019 10:33 AM PDT) + +-------+ + + + | Component | Value | Ref Range | Performed | Pathologist | | | | | At | Signature | + +-------+ + + + | WBC | 5.7 | 4.0 - 11.0 K/uL | [facility] | | | | | | [facility] | | | | | | MEDICAL | | | | | | CENTER - | | | | | | LABORATORY | | + +-------+ + + + | RBC | 4.61 | 3.70 - 5.20 | [facility] | | | | | M/uL | [facility] | | | | | | MEDICAL | | | | | | CENTER - | | | | | | LABORATORY | | + +-------+ + + + | Hemoglobin | 13.0 | 11.5 - 16.0 | [facility] | | | | | g/dL | [facility] | | | | | | MEDICAL | | | | | | CENTER - | | | | | | LABORATORY | | + +-------+ + + + | Hematocrit | 38.7 | 34.0 - 47.0 % | [facility] | | | | | | [facility] | | | | | | MEDICAL | | | | | | CENTER - | | | | | | LABORATORY | | + +-------+ + + + | MCV | 83.9 | 83.0 - 101.0 fL | [facility] | | | | | | [facility] | | | | | | MEDICAL | | | | | | CENTER - | | | | | | LABORATORY | | + +-------+ + + + | MCH | 28.2 | 28.0 - 35.0 pg | [facility] | | | | | | [facility] | | | | | | MEDICAL | | | | | | CENTER - | | | | | | LABORATORY | | + +-------+ + + + | MCHC | 33.6 | 32.0 - 36.0 | [facility] | | | | | g/dL | [facility] | | | | | | MEDICAL | | | | | | CENTER - | | | | | | LABORATORY | | + +-------+ + + + | RDW-CV | 13.2 | <15.0 % | [facility] | | | | | | [facility] | | | | | | MEDICAL | | | | | | CENTER - | | | | | | LABORATORY | | + +-------+ + + + | RDW-SD | 39.8 | 35.1 - 46.3 fL | [facility] | | | | | | [facility] | | | | | | MEDICAL | | | | | | CENTER - | | | | | | LABORATORY | | + +-------+ + + + | Platelet | 223 | 140 - 440 K/uL | [facility] | | | Count | | | [facility] | | | | | | MEDICAL | | | | | | CENTER - | | | | | | LABORATORY | | + +-------+ + + + | MPV | 10.0 | 6.5 - 12.4 fL | [facility] | | | | | | [facility] | | | | | | MEDICAL | | | | | | CENTER - | | | | | | LABORATORY | | + +-------+ + + + | % | 61.2 | 45.0 - 82.0 % | [facility] | | | Neutrophils | | | [facility] | | | | | | MEDICAL | | | | | | CENTER - | | | | | | LABORATORY | | + +-------+ + + + | % | 28.2 | 20.0 - 45.0 % | [facility] | | | Lymphocytes | | | [facility] | | | | | | MEDICAL | | | | | | CENTER - | | | | | | LABORATORY | | + +-------+ + + + | % Monocytes | 9.6 | 4.0 - 12.0 % | [facility] | | | | | | [facility] | | | | | | MEDICAL | | | | | | CENTER - | | | | | | LABORATORY | | + +-------+ + + + | % | 0.4 | 0.0 - 5.0 % | [facility] [...] + +-------+ + + + | % Immature | 0.4 | 0.0 - 0.4 % | [facility] | | | Granulocyte | | | [facility] | | | s | | | MEDICAL | | | | | | CENTER - | | | | | | LABORATORY | | + +-------+ + + + | Absolute | 3.50 | 1.80 - 8.50 | [facility] | | | Neutrophils | | K/uL | [facility] | | | | | | MEDICAL | | | | | | CENTER - | | | | | | LABORATORY | | + +-------+ + + + | Absolute | 1.61 | 0.60 - 3.20 | [facility] | | | Lymphocytes | | K/uL | [facility] | | | | | | MEDICAL | | | | | | CENTER - | | | | | | LABORATORY | | + +-------+ + + + | Absolute | 0.55 | 0.00 - 1.00 | [facility] | | | Monocytes | | K/uL | [facility] | | | | | | MEDICAL | | | | | | CENTER - | | | | | | LABORATORY | | + +-------+ + + + | Absolute | 0.02 | 0.00 - 0.40 | [facility] | | | Eosinophils | | K/uL | [facility] | | | | | | MEDICAL | | | | | | CENTER - | | | | | | LABORATORY | | + +-------+ + + + | Absolute | 0.01 | 0.00 - 0.10 | [facility] | | | Basophils | | K/uL | [facility] | | | | | | MEDICAL | | | | | | CENTER - | | | | | | LABORATORY | | + +-------+ + + + | Absolute | 0.02 | 0.00 - 0.03 | [facility] | | | Immature | | K/uL | [facility] | | | Granulocyte | | | MEDICAL | | | s | | | CENTER - | | | | | | LABORATORY | | + +-------+ + + + | % nRBC | 0 | 0 - 2 per 100 | [facility] | | | | | WBCs | [facility] | | | | | | MEDICAL | | | | | | CENTER - | | | | | | LABORATORY | | + +-------+ + + + | Absolute | 0.00 | 0.00 - 0.01 | [facility] | | | nRLUIZ | | K/Padmini | [facility] | [...] [address] | [place] | [phone] | | [facility] | | [address] | | | - LABORATORY | | | | + + + + + documented in this encounter Visit Diagnoses + + | Diagnosis | + + | Rectal cancer (HCC) - Primary Malignant neoplasm of rectum | + + documented in this encounter"
--- OUTSIDE RECORDS SUMMARY | ~2020-02-23 | XMS | Encounter Summary ---
Demographics + + + | Address | [address] [address] | | | [place] [address] | + + + | Home Phone | | + + + | Preferred Language | Unknown | + + + | Marital Status | Single | + + + | Roman Catholic Affiliation | 1041 | + + + | Race | Unknown | + + + | Ethnic Group | Unknown | + + + Author + + + | Author | [facility] | | | and [place] | + + + | Organization | [facility] | | | [...] Team Providers + +------+ + | Care Bridge Welder Name | Role | Phone | + +------+ + | Kera Hernandez PA-C | PCP | | + +------+ + Encounter Details +--------+ + + + + | Date | Type | Department | Care Team | Description | +--------+ + + + + | 04/07/ | [facility] | [facility] | [facility] | Rectal cancer (HCC) | | 2018 | Encounter | [facility] | MD Casimiro [address] | (Primary Dx) | | | | [facility]OGY CLINIC [address] | [address] | | | | | [address] | [place] [address] | | | | | [place] [address] | [phone] | | | | | [phone] | | | +--------+ + + + [...] + + +---------+--------+ + | | Take 1 tablet by [...] 8 | + + + +---------+--------+ + documented as of this encounter Plan of Treatment Not on filedocumented as of this encounter Procedures + +--------+ + + + | Procedure Name | Priori | Date/Time | Associated Diagnosis | Comments | | | ty | | | | + +--------+ + + + | HEMOGLOBIN A1C | Add-On | 04/08/2018 | Rectal cancer | Results for this | | | | 3:20 PM | (HCC) | procedure are in the | | | | PDT | | results section. | + +--------+ + + + | IRON AND TRANSFERRIN | STAT | 04/07/2018 | Rectal cancer | Results for this | | | | 3:20 PM | (HCC) | procedure are in the | | | | PDT | | results section. | + +--------+ + + + | CBC WITH | STAT | 04/07/2018 | Rectal cancer | Results for this | | DIFFERENTIAL | | 3:20 PM | (HCC) | procedure are in the | | | | PDT | | results section. | + +--------+ + + + | FERRITIN | STAT | 04/07/2018 | Rectal cancer | Results for this | | | | 3:20 PM | (HCC) | procedure are in the | | | | PDT | | results section. | + +--------+ + + + | CEA | STAT | 04/07/2018 | Rectal cancer | Results for this | | | | 3:20 PM | (HCC) | procedure are in the | | | | PDT | | results section. | + +--------+ + + + | COMPREHENSIVE | STAT | 04/07/2018 | Rectal cancer | Results for this | | METABOLIC PANEL | | 3:20 PM | (HCC) | procedure are in the | | | | PDT | | results section. | + +--------+ + + + documented in this encounter Results Hemoglobin A1C (04/08/2018 3:20 PM PDT) + +---------+ + + + | Component | Value | Ref Range | Performed | Pathologist | | | | | At | Signature | + +---------+ + + + | Hemoglobin | 6.2 (H) | 4.3 - 6.0 % | [facility] | | | A1c | | | [facility] | | | | | | MEDICAL | | | | | | CENTER - | | | | | | LABORATORY | | + +---------+ + + + | Estimated | 131 | mg/dL | [facility] | | | Average | | | [facility] | | | Glucose | | | MEDICAL | | | [...] + | [facility] | [address] | [place] | [phone] | | [facility] | | [address] | | | - LABORATORY | | | | + + + + + CBC with Differential (04/07/2018 3:20 PM PDT) + +-------+ + + + | Component | Value | Ref Range | Performed | Pathologist | | | | | At | Signature | + +-------+ + + + | WBC | 5.3 | 4.0 - 11.0 K/uL | [facility] | | | | | | [facility] | | | | | | MEDICAL | | | | | | CENTER - | | | | | | LABORATORY | | + +-------+ + + + | RBC | 4.53 | 3.70 - 5.20 | [facility] | | | | | M/uL | [facility] | | | | | | MEDICAL | | | | | | CENTER - | | | | | | LABORATORY | | + +-------+ + + + | Hemoglobin | 12.9 | 11.5 - 16.0 | [facility] | | | | | g/dL | [facility] | | | | | | MEDICAL | | | | | | CENTER - | | | | | | LABORATORY | | + +-------+ + + + | Hematocrit | 37.8 | 34.0 - 47.0 % | [facility] | | | | | | [facility] | | | | | | MEDICAL | | | | | | CENTER - | | | | | | LABORATORY | | + +-------+ + + + | MCV | 83.5 | 83.0 - 101.0 fL | [facility] | | | | | | [facility] | | | | | | MEDICAL | | | | | | CENTER - | | | | | | LABORATORY | | + +-------+ + + + | MCH | 28.6 | 28.0 - 35.0 pg | [facility] | | | | | | [facility] | | | | | | MEDICAL | | | | | | CENTER - | | | | | | LABORATORY | | + +-------+ + + + | MCHC | 34.2 | 32.0 - 36.0 | [facility] | [...] +-------+ + + + | Platelet | 196 | 140 - 440 K/uL | [facility] | | | Count | | | [facility] | | | | | | MEDICAL | | | | | | CENTER - | | | | | | LABORATORY | | + +-------+ + + + | MPV | 8.1 | fL | [facility] | | | | | | [facility] | | | | | | MEDICAL | | | | | | CENTER - | | | | | | LABORATORY | | + +-------+ + + + | % | 58.2 | 45.0 - 82.0 % | [facility] | | | Neutrophils | | | [facility] | | | | | | MEDICAL | | | | | | CENTER - | | | | | | LABORATORY | | + +-------+ + + + | % | 29.8 | 20.0 - 45.0 % | [facility] | | | Lymphocytes | | | [facility] | | | | | | MEDICAL | | | | | | CENTER - | | | | | | LABORATORY | | + +-------+ + + + | % Monocytes | 8.8 | 4.0 - 12.0 % | [facility] | | | | | | [facility] | | | | | | MEDICAL | | | | | | CENTER - | | | | | | LABORATORY | | + +-------+ + + + | % | 2.7 | 0.0 - 5.0 % | [facility] | | | Eosinophils | | | [facility] | | | | | | MEDICAL | | | | | | CENTER - | | | | | | LABORATORY | | + +-------+ + + + | % Basophils | 0.5 | 0.0 - 1.0 % | [facility] | | | | | | [facility] | | | | | | MEDICAL | | | | | | CENTER - | | | | | | LABORATORY | | + +-------+ + + + | Absolute | 3.10 | 1.80 - 8.50 | [facility] | | | Neutrophils | | K/uL | [facility] | | | | | | MEDICAL | | | | | | CENTER - | | | | | | LABORATORY | | + +-------+ + + + | Absolute | 1.60 | 0.60 - 3.20 | [facility] | | | Lymphocytes | | K/uL | [facility] | | | | | | MEDICAL | | | | | | CENTER - | | | | | | LABORATORY | | + +-------+ + + + | Absolute | 0.50 [...] + | [facility] | [address] | [place] | [phone] | | [facility] | | [address] | | | - LABORATORY | | | | + + + + + Comprehensive Metabolic Panel (04/07/2018 3:20 PM PDT) + + + + + + | Component | Value | Ref Range | Performed | Pathologist | | | | | At | Signature | + + + + + + | Na | 139 | 136 - 149 | [facility] | | | | | mmol/L | [facility] | | | | | | MEDICAL | | | | | | CENTER - | | | | | | LABORATORY | | + + + + + + | K | 4.2 | 3.5 - 5.1 | [facility] | | | | | mmol/L | [facility] | | | | | | MEDICAL | | | | | | CENTER - | | | | | | LABORATORY | | + + + + + + | Cl | 111 (H) | 98 - 109 mmol/L | [facility] | | | | | | [facility] | | | | | | MEDICAL | | | | | | CENTER - | | | | | | LABORATORY | | + + + + + + | CO2 | 23 (L) | 24 - 31 mmol/L | [facility] | | | | | | [facility] | | | | | | MEDICAL | | | | | | CENTER - | | | | | | LABORATORY | | + + + + + + | Anion Gap | 5 | 3 - 16 mmol/L | [facility] | | | | | | [facility] | | | | | | MEDICAL | | | | | | CENTER - | | | | | | LABORATORY | | + + + + + + | Glucose | 109 | 70 - 109 mg/dL | [facility] [...] + + + + | Creatinine | 0.76 | 0.60 - 1.30 | [facility] | [...] | | | FILTRATION | mL/min/1.73m2 | [facility] | | | GUAMANIAN | RATE,ESTIMATED | | MEDICAL | | | | mL/min/1.10t5Gssv than | | CENTER - | | [...] + + + + | Calcium | 9.1 | 8.3 - 10.5 | [facility] | | | | | mg/dL | [facility] | | | | | | MEDICAL | | | | | | CENTER - | | | | | | LABORATORY | | + + + + + + | Albumin | 4.0 | 3.2 - 5.0 g/dL | [facility] | | | | | | [facility] | | | | | | MEDICAL | | | | | | CENTER - | | | | | | LABORATORY | | + + + + + + | Bilirubin | 0.4Comment: This is an | 0.1 - 1.5 [...] + + | Total | 6.9 | 6.0 - 7.8 g/dL | [facility] | | | Protein | | | [facility] | | | | | | MEDICAL | | | | | | CENTER - | | | | | | LABORATORY | | + + + + + + | AST | 23Comment: This is an | 10 - 42 [...] + + + + | ALT | 19Comment: This is an | 6 - 45 [...] + + + + | Alkaline | 76Comment: This is an | 40 - 110 [...] + + + + | Globulin | 2.9 | 2.1 - 3.8 g/dL | [facility] | | | | | | [facility] | | | | | | MEDICAL | | | | | | CENTER - | | | | | | LABORATORY | | + + + + + + | Albumin/Nicol | 1.4 | 0.8 - 2.0 | [facility] | | | bulin Ratio | | | [facility] | | | | | | MEDICAL | | | | | | CENTER - | | | | | | LABORATORY | | + + + + + + | BUN/Creatin | 19.7 | | [facility] | | | ine [...] + | [facility] | [address] | [place], [place] | [phone] | | [facility] | | [address] | | | - LABORATORY | | | | + + + + + CEA (04/07/2018 3:20 PM PDT) + +-------+ + + + | Component | Value | Ref Range | Performed | Pathologist | | | | | At | Signature | + +-------+ + + + | CEA | 3.8 | 0.0 - 10.0 | [facility] | | | | | ng/mL | [facility] | | | | | [...] [address] | [place] | [phone] | | [facility] | | [address] | | | - LABORATORY | | | | + + + + + Ferritin (04/07/2018 3:20 PM PDT) + +-------+ + + + | Component | Value | Ref Range | Performed | Pathologist | | | | | At | Signature | + +-------+ + + + | FERRITIN | 20 | 11 - 307 ng/mL | [facility] | | | | | | [facility] [...] | + + + + + | [facility] | [address] | [place] | [phone] | | [facility] | | [address] | | | - LABORATORY | | | | + + + + + Iron and Transferrin (04/07/2018 3:20 PM PDT) + + + + + + | Component | Value | Ref Range | Performed | Pathologist | | | | | At | Signature | + + + + + + | Iron | 38 (L) | 40 - 150 ug/dL | [facility] | | | | | | [facility] | | | | | | MEDICAL | | | | | | CENTER - | | | | | | LABORATORY | | + + + + + + | TRANSFERRIN | 231.6 (L) | 240.0 - 480.0 | [facility] | | | | | mg/dL | [facility] | | | | | | MEDICAL | | | | | | CENTER - | | | | | | LABORATORY | | + + + + + + | TIBC | 324 | 235 - 425 ug/dL | [facility] | | | | | | [facility] | | | | | | MEDICAL | | | | | | CENTER - | | | | | | LABORATORY | | + + + + + + | % | 11.7 (L) | 20.0 - 55.0 % | [facility] | | | SATURATION | | | [facility] | | [...] | + + + + + | [facility] | [address] | [place] | [phone] | | [facility] | | [address] | | | - LABORATORY | | | | + + + + + documented in this encounter Visit Diagnoses + + | Diagnosis | + + | Rectal cancer (HCC) - Primary Malignant neoplasm of rectum | + + documented in this encounter"
--- OUTSIDE RECORDS SUMMARY | ~2020-02-23 | XMS | Encounter Summary ---
Demographics + + + | Address | [address] [facility] [address] | | | [place] [address] | + + + | Home Phone | | + + + | Preferred Language | Unknown | + + + | Marital Status | Single | + + + | Pentecostalism Affiliation | [id number] | + + + | Race | Unknown | + + + | Ethnic Group | Unknown | + + + Author + + + | Author | [facility] | | | and [place] | + + + | Organization | [facility] | | [...] Team Providers + +------+ + | Care Master Chef Name | Role | Phone | + +------+ + | Cindy Miramontes MD | PCP | | + +------+ + Reason for Visit + + + | Reason | Comments | + + + | Follow-up | | + + + Evaluate & Treat (Routine) +--------+--------+ + + [...] [facility] [place] | | | | | OR OFFICE | [id number] | [place], [place] | | | | | OUTPATIENT | Phone: | [phone] Phone: | | | | | VISIT 25 | [phone] | [phone] | | | | | MINUTES | Fax: | Fax: | | | | | | [phone] | [phone] | +--------+--------+ + + + + Encounter Details +--------+ + + + + | Date | Type | Department | Care Team | Description | +--------+ + + + + | 07/04/ | Hospital | [facility] | Wing [facility] | Rectal cancer (HCC) | | 2015 | Encounter | [facility] | MD Casimiro [address] | (Primary Dx) | | | | [facility] [address] | [address] | | | | | [address] | [place] [address] | | | | | [place] [address] | [phone] | | | | | [phone] | | | +--------+ + + + [...] + + + | Blood Pressure | 105/74 | 07/04/2015 1:01 PM | | | | | PDT | | + + + + + | Pulse | 82 | 07/04/2015 1:01 PM | | | | | PDT | | + + + + + | Temperature | 37.2 C (99 F) | 07/04/2015 1:01 PM | | | | | PDT | | + + + + + | Respiratory Rate | 16 | 07/04/2015 1:01 PM | | | | | PDT | | + + + + + | Oxygen Saturation | 99% | 07/04/2015 1:01 PM | | | | | PDT | | + + + + + | Inhaled Oxygen | - | - | | | Concentration | | | | + + + + + | Weight | 87 kg (191 lb 12.8 | 07/04/2015 1:01 PM | | | | oz) | PDT | | + + + + + | Height | - | - | | + + + + + | Body Mass Index | 31.57 | 01/31/2015 11:35 AM | | | [...] + + + +---------+ + + | fluticasone | 1 spray by Nasal | | 0 | | | | (FLONASE) 50 | route Daily. | | | | 6 | | mcg/nasal spray | | | | | | + [...] + + + +---------+ + + | LORazepam (ATIVAN) | Take 1 tablet by | 30 | 1 | 02/08/20 | | | 1 mg tablet | mouth every 6 hours | tablet | | 15 | 6 | | | as needed (nausea). | | | | | + + + +---------+ + + | non-formulary | Citracel | | 0 | | | | medication | | | | | 7 | + + + +---------+ + + | Pseudoephedrine | Take by mouth. | | 0 | | | | HCl (SUDAFED 12 HOUR | | | | | 7 | | PO) | | | | | | + + + +---------+ + + documented as of this encounter Progress Notes Wing Frank MD - 07/04/2015 1:10 PM PDTFormatting of this note might be diff erent from the original. Hem-Onc Progress Note [facility] Pt. Name/Age/: Fang Stephenson 50 y.o. 1965 Med. Record Number: [id number] Date of admission: 07/04/2015 Assessment and plan: 1. 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 Ronaldo Hess, [facility] , Nov, 2014 with no histologically identifiable residual disease, Thus ypT0,N0 (0/7), M0 S/p 4 cycles post-surgical adjuvant CapOx chemotherapy: January-March, Recommendation for continued follow-up monitoring now on a quarterly basis. Discussion and sharing with patient believes that she would be a good candidate for ventral hernia repair. Would probably be best to achieve this now before these enlarge further vance ing surgery more difficult. I have asked her to return with Dr. Russell who will be planning follow-up colonoscopy later next month. Subjective: The patient chart and medications were reviewed in detail and the patient was seen and exam ined. Fang Stephenson is a 50 y.o. female who returns today for posttreatment monitoring cassy hobson now completed a succession of multi-modality therapies for primary rectal carcinoma. Patient is recovered following reversal of earlier ileostomy as a component of her low abdo sherry proctectomy for primary rectal carcinoma from winter of this year. She had undergone preoperative neoadjuvant chemoradiotherapy with achievement of a complete remission and then went on to receive postsurgical adjuvant chemotherapy ending in March. Toxicity from that p rogram including peripheral neuropathy, fatigue have begun to atiya the patient describes a mostly sedentary summer. She also has developed a ventral hernia in the time since reversal of ileostomy and wonders if this might be something that could be surgically repaired. She is subject to frequent bowel movements since the time of re-anastomosis and this limits her activities to places where she is reassured of toilet facilities. PSH: Reviewed, no changes to admission H&P. Review of Systems: Constitutional: Denies fatigue. Denies high fevers, shaking chills, anorexia, nausea, vomit ing or night sweats. Appetite without changes.Pt last weight was 94.2kg and today's weight i s 87.0, appetite is good. Ear, Nose, Mouth, Throat: Denies odynophagia, dysphagia, or tinnitus. Cardiovascular: Denies shortness of breath, dyspnea on exertion, chest pain, palpitations o r orthopnea. Respiratory: Denies cough, hemoptysis, or sputum production. Gastrointestinal: Denies abdominal pain, constipation, diarrhea, melena, or bright red bloo d per rectum. Pt reports having her colostomy bag removed in April since then she is struggli ng with bowel irregularities, she states using wipes instead of toilet paper due to causing irritation. Genitourinary: Denies hematuria or dysuria. Musculoskeletal: Denies joint pain or tenderness. Neurologic: Denies headache, visual changes, or numbness/tingling of the extremities. Endocrine: Denies peripheral edema or heat/cold intolerance. Hematologic: Denies spontaneous bruising or bleeding. Integumentary: Denies rash, wounds or other skin concerns. Pain: Denies pain. Review of systems as above otherwise negative Scheduled Medications: Continuous Infusions: PRN Meds:. Allergy: Allergies Allergen Reactions Latex Redness and irritation during chemotherapy Objectives: Temp: 37.2 C (99 F) BP: 105/74 mmHg Pulse: 82 Resp: 16 SpO2: 99 % on Min/Max Temp past 24 hours:Temp Av.2 C (99 F) Min: 37.2 C (99 F) Max: 37.2 C (99 F) No intake or output data in the 24 hours ending 07/04/15 1310 Wt. Admission: Weight: 87 kg (191 lb 12.8 oz) Wt. Current: Weight: 87 kg (191 lb 12.8 o z) Physical Exam: Exam: General: The patient is alert and oriented. No acute distress. HEENT: PERRL, Oral mucosa intact. Neck is supple. Cardiovascular: Regular rate and rhythm, no murmur. Respiratory: Clear to auscultation and percussion. Breast: Not examined Abdomen: Soft, anterior abdominal wall with small hernia just above the umbilicus, no hepa tospenomegaly. Site of former ileostomy well healed Genitourinary: Deferred. Extremities: Nontender, no erythema, no edema. Skin: No rashes, bruising, or petechiae. Lymph: No palpable nodes in the neck, supraclavicular fossa, axilla or groin. Neurological: Cranial nerves are intact. Normal sensory and motor function, No focal defi cits noted. Muscular/Skeletal: No acute bony tenderness. Psychiatric: Normal mood and affect. Diagnostic studies: Available data and images were reviewed personally. See reports. Significant results and findings are addressed here or in the Assessment and Plan. Recent Labs Lab 07/04/15 1245 WBC 4.0 HGB 11.5 HCT 34.9 PLT 201 No results for input(s): NA, K, CL, CO2, BUN, CREA, GLU, MG, CALCIUM, PHOS, BILITOT, AST, A LT, ALKPHOS, ALBUMIN in the last 168 hours. Invalid input(s): PROT Microbiology Results (72 hrs) No results found for the last 72 hours. No results found. Electronically signed by: Wing Frank, 07/04/2015 13:10 [facility] TIME SPENT 20 MIN. > 50% AT BEDSIDE, WITH FAMILY/PATIENT IN CARE AND HEEL LAYER ON UNIT AND CO ORDINATION OF CARE Portions of this chart may have been created with [employer] voice recognition software. Occasi onal wrong-word or sound-alike substitutions may have occurred due to the inherent rutherford itations of voice recognition software. Please read the chart carefully and recognize, using context, where these substitutions have occurred. Leah Rodriguez, [facility] - 07/04/2015 1:03 PM PDTREVIEW OF SYSTEMS Constitutional: Denies fatigue. Denies high fevers, shaking chills, anorexia, nausea, vomit ing or night sweats. Appetite without changes.Pt last weight was 94.2kg and today's weight is 87.0, appetite is good. Ear, Nose, Mouth, Throat: Denies odynophagia, dysphagia, or tinnitus. Cardiovascular: Denies shortness of breath, dyspnea on exertion, chest pain, palpitations o r orthopnea. Respiratory: Denies cough, hemoptysis, or sputum production. Gastrointestinal: Denies abdominal pain, constipation, diarrhea, melena, or bright red bloo d per rectum. Pt reports having her colostomy bag removed in April since then she is struggli ng with bowel irregularities, she states using wipes instead of toilet paper due to causing irritation. Genitourinary: Denies hematuria or dysuria. Musculoskeletal: Denies joint pain or tenderness. Neurologic: Denies headache, visual changes, or numbness/tingling of the extremities. Endocrine: Denies peripheral edema or heat/cold intolerance. Hematologic: Denies spontaneous bruising or bleeding. Integumentary: Denies rash, wounds or other skin concerns. Pain: Denies pain. Note: Pt is here for follow up and labs. My chart: documented in this encounter Plan of Treatment Not on filedocumented as of this encounter Procedures + +--------+ + + + | Procedure Name | Priori | Date/Time | Associated Diagnosis | Comments | | | ty | | | | + +--------+ + + + | CBC W/AUTO | STAT | 07/04/2015 | Rectal cancer | Results for this | | DIFFERENTIAL | | 12:45 PM | (HCC) | procedure are in the | | | | PDT | | results section. | + +--------+ + + + | CEA | STAT | 07/04/2015 | Rectal cancer | Results for this | | | | 12:45 PM | (HCC) | procedure are in the | | | | PDT | | results section. | + +--------+ + + + | COMPREHENSIVE | STAT | 07/04/2015 | Rectal cancer | Results for this | | METABOLIC PANEL | | 12:45 PM | (HCC) | procedure are in the | | | | PDT | | results section. | + +--------+ + + + documented in this encounter Results CBC w/ Auto Differential (07/04/2015 12:45 PM PDT) + +-------+ + + + | Component | Value | Ref Range | Performed | Pathologist | | | | | At | Signature | + +-------+ + + + | WBC | 4.0 | 4.0 - 11.0 K/uL | [facility] | | | | | | [facility] | | | [facility] | [facility] | | | | [facility] - | | | | | | [facility]ATORY | | + +-------+ + + + | RBC | 4.10 | 3.70 - 5.20 | [facility] | | | | | M/uL | [facility] | | | | | | [facility] | | | | | | [facility] - | | | | | | LABORATORY | | + +-------+ + + + | Hemoglobin | 11.5 | 11.5 - 16.0 | [facility] | | | | | g/dL | [facility] | | [facility] | [facility] | | | | | | [facility] - | | | | | | LABORATORY | | + +-------+ + + + | Hematocrit | 34.9 | 34.0 - 47.0 % | [facility] [...] +-------+ + + + | MCH | 28.0 | 28.0 - 35.0 pg | [facility] | | | | | | [facility] | | | | | | [facility] | | | | | | [facility] - | | | | | | LABORATORY | | + +-------+ + + + | MCHC | 32.9 | 32.0 - 36.0 | [facility] | | | | | g/dL | [facility] | | | | | | [facility] | | | | | | [facility] - | | | | | | LABORATORY | | + +-------+ + + + | RDW-CV | 14.8 | <15.0 % | [facility] | | | | | | [facility] | | | | | | [facility] | | | | | | [facility] - | | | | | | LABORATORY | | + +-------+ + + + | Platelet | 201 | 140 - 440 K/uL | [facility] | | | Count | | | [facility] | | | | | | [facility] | | | | | | [facility] - | | | | | | LABORATORY | | + +-------+ + + + | MPV | 8.1 | fL | [facility] | | | | | | [facility] | | [facility] | | | | | | [facility] - | | | | | | LABORATORY | | + +-------+ + + + | % | 67.6 | 45.0 - 82.0 % | [facility] | | | Neutrophils | | | [facility] | | | | | | [facility] | | | | | | [facility] - | | | | | | LABORATORY | | + +-------+ + + + | % | 22.3 | 20.0 - 45.0 % | [facility] | | | Lymphocytes | | | [facility] | | | | | | [facility] | | | | | | [facility] - | | | | | | LABORATORY | | + +-------+ + + + | % Monocytes | 7.0 | 4.0 - 12.0 % | [facility] [...] +-------+ + + + | Absolute | 0.90 | 0.60 - 3.20 | [facility] | | | Lymphocytes | | K/uL | [facility] | | | | | | [facility] | | | | | | [facility] - | | | | | | LABORATORY | | + +-------+ + + + | Absolute | 0.30 | 0.00 - 1.00 | [facility] | [...] + | [facility] [facility] | [address] | [place], [place] | [phone] | | [facility] | | [address] | | | - LABORATORY | | | | + + + + + Comprehensive Metabolic Panel (07/04/2015 12:45 PM PDT) + + + + + + | Component | Value | Ref Range | Performed | Pathologist | | | | | At | Signature | + + + + + + | Na | 141 | 136 - 149 | [facility] | | | | | mmol/L | [facility] | | | | | | [facility] | | | | | | [facility] - | | | | | | LABORATORY | | + + + + + + | K | 3.8 | 3.5 - 5.1 | [facility] | | | | | mmol/L | [facility] | | | | | | [facility] | | | | | | [facility] - | | | | | | LABORATORY | | + + + + + + | Cl | 106 | 98 - 109 mmol/L | [facility] | | | | | | [facility] | | | | | | [facility] | | | | | | [facility] - | | | | | | LABORATORY | | + + + + + + | CO2 | 24 | 24 - 31 mmol/L | [facility] | | | | | | [facility] | | | | | | [facility] | | | | | | [facility] - | | | | | | LABORATORY | | + + + + + + | Anion Gap | 11 | 3 - 16 mmol/L | [facility] | | | | | | [facility] | | | | | | [facility] | | | | | | [facility] - | | | | | | LABORATORY | | + + + + + + | Glucose | 163 (H) | 70 - 109 mg/dL | [facility] | | | | | | [facility] | | | | | | [facility] | | | | | | [facility] - | | | | | | LABORATORY | | + + + + + + | BUN | 18 | 7 - 18 mg/dL | [facility] | | | | | | [facility] | | | | | | [facility] | | | | | | [facility] - | | | | | | LABORATORY | | + + + + + + | Creatinine | 0.85 | 0.60 - 1.30 | [facility] | [...] | | | FILTRATION | mL/min/1.73m2 | [facility] | | | [facility] | RATE,ESTIMATED | | MEDICAL | | | | mL/min/1.34f2Ceuz than | | CENTER - | | [...] + + + + | Calcium | 9.3 | 8.3 - 10.5 | [facility] | | | | | mg/dL | [facility] | | | | | | [...] + + + + | Bilirubin | 0.5 | 0.1 - 1.5 mg/dL | [facility] | | | Total | | | [facility] | | | | | | MEDICAL | | | | | | CENTER - | | | | | | LABORATORY | | + + + + + + | Total | 6.8 | 6.0 - 7.8 g/dL | [facility] | | | Protein | | | [facility] | | | | | | MEDICAL | | | | | | CENTER - | | | | | | LABORATORY | | + + + + + + | AST | 26 | 10 - 42 U/L | [facility] | | | | | | [facility] | | | | | | [facility] | | | | | | CENTER - | | | | | | LABORATORY | | + + + + + + | ALT | 22 | 6 - 45 U/L | [facility] | | | | | | [facility] | | | | | | [facility] | | | | | | CENTER - | | | | | | LABORATORY | | + + + + + + | Alkaline | 67 | 40 - 110 U/L | [facility] | | | Phosphatase | | | [facility] | | | | | | MEDICAL | | | | | | CENTER - | | | | | | LABORATORY | | + + + + + + | Globulin | 3.0 | g/dL | [facility] | | | | | | [facility] | | | | | | [facility] | | | | | | CENTER - | | | | | | LABORATORY | | + + + + + + | Albumin/Nicol | 1.3 | | [facility] | | | bulin Ratio | | | [facility] | | | | | | MED[facility] | | | | | | CENTER - | | | | | | LABORATORY | | + + + + + + | BUN/Creatin | 21.2 | | [facility] | | | ine [...] + | [facility] | [address] | [place] | [phone] | | [facility] | | [address] | | | - LABORATORY | | | | + + + + + CEA (07/04/2015 12:45 PM PDT) + +-------+ + + + | Component | Value | Ref Range | Performed | Pathologist | | | | | At | Signature | + +-------+ + + + | CEA | 2.8 | 0.0 - 10.0 | [facility] | | | | | ng/mL | [facility] | | | | | [...] ST. | [address] | [place], [place] | [phone] | | [facility] | | [address] | | | - LABORATORY | | | | + + + + + documented in this encounter Visit Diagnoses + + | Diagnosis | + + | Rectal cancer (HCC) - Primary Malignant neoplasm of rectum | + + documented in this encounter"
--- OUTSIDE RECORDS SUMMARY | ~2020-02-23 | XMS | Encounter Summary ---
Demographics + + + | Address | [address] [facility] [address] | | | [place] [address] | + + + | Home Phone | | + + + | Preferred Language | Unknown | + + + | Marital Status | Single | + + + | Episcopalian Affiliation | 1041 | + + + | Race | Unknown | + + + | Ethnic Group | Unknown | + + + Author + + + | Author | [facility] | | | and [place] | + + + | Organization | [facility] | | [...] Team Providers + +------+ + | Care Test Manager Name | Role | Phone | + +------+ + | Cindy Miramontes MD | PCP | | + +------+ + Encounter Details +--------+ + + + + | Date | Type | Department | Care Team | Description | +--------+ + + + + | 08/17/ | [facility] | [facility] | Wing Frank | Rectal cancer (HCC) | | 2014 | Encounter | [facility] | MD Casimiro [address] | (Primary Dx) | | | | [facility] CLIN[facility] [address] | [address] | | | | | [address] | [place] [address] | | | | | [place] [address] | [phone] | | | | | [phone] | | | +--------+ + + + [...] + + + | Blood Pressure | 143/87 | 08/17/2014 4:00 PM | | | | | PST | | + + + + + | Pulse | 85 | 08/17/2014 4:00 PM | | | | | PST | | + + + + + | Temperature | 36.8 C (98.2 F) | 08/17/2014 4:00 PM | | | | | PST | | + + + + + | Respiratory Rate | - | - | | + + + + + | Oxygen Saturation | 98% | 08/17/2014 4:00 PM | | | | | PST | | + + + + + | Inhaled Oxygen | - | - | | | Concentration | | | | + + + + + | Weight | 105.7 kg (233 lb 0.4 | 08/17/2014 4:00 PM | | | | oz) | PST | | + + + + + | Height | - | - | | + + + + + | Body Mass Index | 38.36 | 08/03/2014 11:14 AM | | | [...] encounter Progress Notes Wing Frank MD - 08/17/2014 4:30 PM PSTFormatting of this note might be diff erent from the original. Patient is a 49 y.o. female seen today, 08/17/2014, for chemotherapy with capecitabine/Radia tion for Rectal carcinoma. Today is day 1/week 1 of therapy. Patient complaints: none Symptoms are stable during the past 24 hours. Advance Directives: not addressed Appropriate portions of the patient's past medical, surgical, family, and social history we re reviewed and updated. Review of Systems Constitutional: Pt reports some fatigue. Denies high fevers, shaking chills, anorexia, naus ea, vomiting, weight loss, or night sweats. Appetite without changes. Ear, Nose, Mouth, Throat: Denies odynophagia, dysphagia, or tinnitus. Cardiovascular: Denies shortness of breath, dyspnea on exertion, chest pain, palpitations o r orthopnea. Respiratory: Denies cough, hemoptysis, or sputum production. Gastrointestinal: Denies abdominal pain, diarrhea, melena, or bright red blood per rectum. Pt reports some constipation, and reports she did buy some metamucil today. Genitourinary: Denies hematuria or dysuria. Musculoskeletal: Denies joint pain or tenderness. Neurologic: Denies headache, visual changes, or numbness/tingling of the extremities. Endocrine: Denies peripheral edema or heat/cold intolerance. Pt reports some edema in the l eft leg below the knee Hematologic: Denies spontaneous bruising or bleeding. Integumentary: Denies rash, wounds or other skin concerns. Pain: Denies pain. Objective: BP 143/87 | Pulse 85 | Temp 36.8 C (98.2 F) (Oral) | Wt 105.7 kg (233 lb 0.4 oz) | SpO2 98% General appearance: alert, appears stated age and cooperative Data Review CBC: Lab Results Component Value Date WBC 8.5 08/05/2014 RBC 4.84 08/05/2014 BMP: Lab Results Component Value Date CO2 22* 08/05/2014 BUN 15 08/05/2014 CALCIUM 9.7 08/05/2014 Assessment: Active Problems: 1. Rectal cancer (HCC) Plan: The patient has a documented plan of care to address pain. A teaching session today reviewing [place] cytidine as a component of chemoradiotherapy as guillaume adjuvant treatment for T3 N0 rectal carcinoma. We discussed the likelihood of untoward effe cts as they might affect the integumentary system such as hand-foot syndrome, the gastrointe stinal tract notably diarrhea and the possibility of myelosuppression. We discussed the pro tocol being used as a Saturday through Saturday program of treatment which will allow recovery o n the weekend from toxicity from cumulative effective medication. We'll also begin monitori ng of the patient on weekly basis but will include weekly blood counts to assess for myeloto xicity risk. Session today for ondansetron 8 mg 3 times daily as needed for nausea. We also discussed t he possibility for supportive care should diarrhea develop. Wing Frank Julee Sloan CMA - 08/17/2014 4:03 PM PSTREVIEW OF SYSTEMS Constitutional: Pt reports some fatigue. Denies high fevers, shaking chills, anorexia, naus ea, vomiting, weight loss, or night sweats. Appetite without changes. Ear, Nose, Mouth, Throat: Denies odynophagia, dysphagia, or tinnitus. Cardiovascular: Denies shortness of breath, dyspnea on exertion, chest pain, palpitations o r orthopnea. Respiratory: Denies cough, hemoptysis, or sputum production. Gastrointestinal: Denies abdominal pain, diarrhea, melena, or bright red blood per rectum. Pt reports some constipation, and reports she did buy some metamucil today. Genitourinary: Denies hematuria or dysuria. Musculoskeletal: Denies joint pain or tenderness. Neurologic: Denies headache, visual changes, or numbness/tingling of the extremities. Endocrine: Denies peripheral edema or heat/cold intolerance. Pt reports some edema in the l eft leg below the knee Hematologic: Denies spontaneous bruising or bleeding. Integumentary: Denies rash, wounds or other skin concerns. Pain: Denies pain. Note:Pt is here for chemo teaching. My chart: documented in this encounter Plan of Treatment + +------+--------+ + + | Name | Type | Priori | Associated Diagnoses | Order Schedule | | | | ty | | | + +------+--------+ + + | CBC w/ Auto | Lab | STAT | Rectal cancer | 52 Occurrences | | Differential | | | (HCC) | starting 08/17/2014 | | | | | | until 08/17/2015, 8 | | | | | | completed | + +------+--------+ + + documented as of this encounter Results CBC w/ Auto Differential [...] | | | | | M/uL | [facility] | | | | [...] | Eosinophils | | K/uL | [facility] | | | | | | [facility]ICAL | | | | | | CENTER - | | | | | | LABORATORY | | + +-------+ + + + | Absolute | 0.00 | 0.00 - 0.10 | [facility] | | | Basophils | | K/uL | [facility] | [...] ST. | [address] | [place] | [phone] | | [facility] | | [address] | | | - LABORATORY | | | | + + + + + CBC w/ Auto Differential (02/07/2015 9:16 AM PDT) + + + + + + | Component | Value | Ref Range | Performed | Pathologist | | | | | At | Signature | + + + + + + | WBC | 4.0 | 4.0 - 11.0 K/uL | [facility] | | | | | | [facility] | | | | | | MEDICAL | | | | | | CENTER - | | | | | | LABORATORY | | + + + + + + | RBC | 4.10 | 3.70 - 5.20 | [facility] | | | | | M/uL | [facility] | | | | | | MEDICAL | | | | | | CENTER - | | | | | | LABORATORY | | + + + + + + | Hemoglobin | 11.8 | 11.5 - 16.0 | [facility] | [...] + + + + | MCV | 84.5 | 83.0 - 101.0 fL | [facility] | | | | | | [facility] | | | | | | MEDICAL | | | | | | CENTER - | | | | | | LABORATORY | | + + + + + + | MCH | 28.7 | 28.0 - 35.0 pg | [facility] | | | | | | [facility] | | | | | | MEDICAL | | | | | | CENTER - | | | | | | LABORATORY | | + + + + + + | MCHC | 33.9 | 32.0 - 36.0 | [facility] | | | | | g/dL | [facility] | | | | | | MEDICAL | | | | | | CENTER - | | | | | | LABORATORY | | + + + + + + | RDW-CV | 14.2 | <15.0 % | [facility] | | | | | | [facility] | | | | | | MEDICAL | | | | | | CENTER - | | | | | | LABORATORY | | + + + + + + | Platelet | 239 | 140 - 440 K/uL | [facility] | | | Count | | | [facility] | | | | | | MEDICAL | | | | | | CENTER - | | | | | | LABORATORY | | + + + + + + | MPV | 7.7 | fL | [facility] | | | | | | [facility] | | | | | | MEDICAL | | | | | | CENTER - | | | | | | LABORATORY | | + + + + + + | % | 68.2 | 45.0 - 82.0 % | [facility] | | | Neutrophils | | | [facility] | | | | | | MEDICAL | | | | | | CENTER - | | | | | | LABORATORY | | + + + + + + | % | 18.8 (L) | 20.0 - 45.0 % | [facility] | | | Lymphocytes | | | [facility] | | | | | | MEDICAL | | | | | | CENTER - | | | | | | LABORATORY | | + + + + + + | % Monocytes | 11.1 | 4.0 - 12.0 % | [facility] | | | | | | [facility] | | | | | | MEDICAL | | | | | | CENTER - | | | | | | LABORATORY | | + + + + + + | % | 1.6 | 0.0 - 5.0 % | [facility] | | | Eosinophils | | | [facility] | | | | | | MEDICAL | | | | | | CENTER - | | | | | | LABORATORY | | + + + + + + | % Basophils | 0.3 | 0.0 - 1.0 % | [facility] | | | | | | [facility] | | | | | | MEDICAL | | | | | | CENTER - | | | | | | LABORATORY | | + + + + + + | Absolute | 2.70 [...] | Eosinophils | | K/uL | [facility] | | | | | | MEDICAL | | | | | | CENTER - | | | | | | LABORATORY | | + + + + + + | Absolute | 0.00 | 0.00 - 0.10 | [facility] | | | Basophils | | K/uL | [facility] | [...] ST. | [address] | [place] | [phone] | | [facility] | | [address] | | | - LABORATORY | | | | + + + + + CBC w/ Auto Differential (12/29/2014 10:29 AM PDT) + + + + + + | Component | Value | Ref Range | Performed | Pathologist | | | | | At | Signature | + + + + + + | WBC | 5.2 | 4.0 - 11.0 K/uL | [facility] | | | | | | [facility] | | | | | | MEDICAL | | | | | | CENTER - | | | | | | LABORATORY | | + + + + + + | RBC | 3.81 | 3.70 - 5.20 | [facility] | | | | | M/uL | [facility] | | | | | | MEDICAL | | | | | | CENTER - | | | | | | LABORATORY | | + + + + + + | Hemoglobin | 11.3 (L) | 11.5 - 16.0 | [facility] | | | | | g/dL | [facility] | | | | | | MEDICAL | | | | | | CENTER - | | | | | | LABORATORY | | + + + + + + | Hematocrit | 33.1 (L) | 34.0 - 47.0 % | [facility] | | | | | | [facility] | | | | | | MEDICAL | | | | | | CENTER - | | | | | | LABORATORY | | + + + + + + | MCV | 86.8 | 83.0 - 101.0 fL | [facility] | | | | | | [facility] | | | | | | MEDICAL | | | | | | CENTER - | | | | | | LABORATORY | | + + + + + + | MCH | 29.8 | 28.0 - 35.0 pg | [facility] | | | | | | [facility] | | | | | | MEDICAL | | | | | | CENTER - | | | | | | LABORATORY | | + + + + + + | MCHC | 34.3 | 32.0 - 36.0 | [facility] | | | | | g/dL | [facility] | | | | | | MEDICAL | | | | | | CENTER - | | | | | | LABORATORY | | + + + + + + | RDW-CV | 13.4 | <15.0 % | [facility] | | | | | | [facility] | | | | | | MEDICAL | | | | | | CENTER - | | | | | | LABORATORY | | + + + + + + | Platelet | 273 | 140 - 440 K/uL | [facility] [...] + + + + | % | 72.4 | 45.0 - 82.0 % | [facility] | | | Neutrophils | | | [facility] | | | | | | MEDICAL | | | | | | CENTER - | | | | | | LABORATORY | | + + + + + + | % | 13.8 (L) | 20.0 - 45.0 % | [facility] | | | Lymphocytes | | | [facility] | | | | | | MEDICAL | | | | | | CENTER - | | | | | | LABORATORY | | + + + + + + | % Monocytes | 9.1 | 4.0 - 12.0 % | [facility] | | | | | | [facility] | | | | | | MEDICAL | | | | | | CENTER - | | | | | | LABORATORY | | + + + + + + | % | 4.1 | 0.0 - 5.0 % | [facility] | | | Eosinophils | | | [facility] | | | | | | MEDICAL | | | | | | CENTER - | | | | | | LABORATORY | | + + + + + + | % Basophils | 0.6 | 0.0 - 1.0 % | [facility] | | | | | | [facility] | | | | | | MEDICAL | | | | | | CENTER - | | | | | | LABORATORY | | + + + + + + | Absolute | 3.70 | 1.80 - 8.50 | [facility] | [...] + | [facility] | [address] | [place], [place] | [phone] | | [facility] | | [address] | | | - LABORATORY | | | | + + + + + | [facility] | [address] | [place], [place] | | | [facility] | | [address] | | | - LABORATORY | | | | + + + + + CBC w/ Auto Differential (11/03/2014 2:11 PM PST) + + + + + + | Component | Value | Ref Range | Performed | Pathologist | | | | | At | Signature | + + + + + + | WBC | 5.0 | 4.0 - 11.0 K/uL | [facility] | | | | | | [facility] | | | | | | MEDICAL | | | | | | CENTER - | | | | | | LABORATORY | | + + + + + + | RBC | 4.10 | 3.70 - 5.20 | [facility] | | | | | M/uL | [facility] | | | | | | MEDICAL | | | | | | CENTER - | | | | | | LABORATORY | | + + + + + + | Hemoglobin | 12.8 | 11.5 - 16.0 | [facility] | | | | | g/dL | [facility] | | | | | | MEDICAL | | | | | | CENTER - | | | | | | LABORATORY | | + + + + + + | Hematocrit | 37.8 | 34.0 - 47.0 % | [facility] | | | | | | [facility] | | | | | | MEDICAL | | | | | | CENTER - | | | | | | LABORATORY | | + + + + + + | MCV | 92.2 | 83.0 - 101.0 fL | [facility] | | | | | | [facility] | | | | | | MEDICAL | | | | | | CENTER - | | | | | | LABORATORY | | + + + + + + | MCH | 31.3 | 28.0 - 35.0 pg | [facility] | | | | | | [facility] | | | | | | [facility] | | | | | | CENTER - | | | | | | LABORATORY | | + + + + + + | MCHC | 33.9 | 32.0 - 36.0 | [facility] | | | | | g/dL | [facility] | | | | | | MEDICAL | | | | | | CENTER - | | | | | | LABORATORY | | + + + + + + | RDW-CV | 16.5 (H) | <15.0 % | [facility] | | | | | | [facility] | | | | | | MEDICAL | | | | | | CENTER - | | | | | | LABORATORY | | + + + + + + | Platelet | 219 | 140 - 440 K/uL | [facility] | | | Count | | | [facility] | | | | | | MEDICAL | | | | | | CENTER - | | | | | | LABORATORY | | + + + + + + | MPV | 8.1 [...] + + + + | % | 20.7 | 20.0 - 45.0 % | [facility] | | | Lymphocytes | | | [facility] | | | | | | MEDICAL | | | | | | CENTER - | | | | | | LABORATORY | | + + + + + + | % Monocytes | 7.9 | 4.0 - 12.0 % | [facility] | | | | | | [facility] | | | | | | MEDICAL | | | | | | CENTER - | | | | | | LABORATORY | | + + + + + + | % | 2.0 | 0.0 - 5.0 % | [facility] | | | Eosinophils | | | [facility] | | | | | | MEDICAL | | | | | | CENTER - | | | | | | LABORATORY | | + + + + + + | % Basophils | 0.9 | 0.0 - 1.0 % | [facility] | | | | | | [facility] | | | | | | MEDICAL | | | | | | CENTER - | | | | | | LABORATORY | | + + + + + + | Absolute | 3.40 | 1.80 - 8.50 | [facility] | | | Neutrophils | | K/uL | [facility] | | | | | | MEDICAL | | | | | | CENTER - | | | | | | LABORATORY | | + + + + + + | Absolute | 1.00 [...] + | [facility] | [address] | [place] | [phone] | | [facility] | | [address] | | | - LABORATORY | | | | + + + + + | [facility] | [address] | [place] | | | [facility] | | [id number] | | | - LABORATORY | | | | + + + + + CBC w/ Auto Differential (09/27/2014 2:41 PM [...] + | [facility] | [address] | [place], [place] | [phone] | | [facility] | | [address] | | | - LABORATORY | | | | + + + + + | [facility] | [address] | [place] | | | [facility] | | [address] [place] [address] | | | - LABORATORY | | | | + + + + + CBC w/ Auto Differential (09/20/2014 3:02 PM PST) + + + + + + | Component | Value | Ref Range | Performed | Pathologist | | | | | At | Signature | + + + + + + | WBC | 6.5 | 4.0 - 11.0 K/uL | [facility] | | | | | | [facility] | | | | | | MEDICAL | | | | | | CENTER - | | | | | | LABORATORY | | + + + + + + | RBC | 4.18 | 3.70 - 5.20 | [facility] | | | | | M/uL | [facility] | | | | | | MEDICAL | | | | | | CENTER - | | | | | | LABORATORY | | + + + + + + | Hemoglobin | 12.3 | 11.5 - 16.0 | [facility] | | | | | g/dL | [facility] | | | | | | MEDICAL | | | | | | CENTER - | | | | | | LABORATORY | | + + + + + + | Hematocrit | 36.0 | 34.0 - 47.0 % | [facility] | | | | | | [facility] | | | | | | MEDICAL | | | | | | CENTER - | | | | | | LABORATORY | | + + + + + + | MCV | 86.3 | 83.0 - 101.0 fL | [facility] [...] + + + + | MCHC | 34.1 | 32.0 - 36.0 | [facility] | [...] + + + + | Platelet | 202 | 140 - 440 K/uL | [facility] [...] + + + + | % | 80.3 | 45.0 - 82.0 % | [facility] | | | Neutrophils | | | [facility] | | | | | | MEDICAL | | | | | | CENTER - | | | | | | LABORATORY | | + + + + + + | % | 7.5 (L) | 20.0 - 45.0 % | [facility] | | | Lymphocytes | | | [facility] | | | | | | MEDICAL | | | | | | CENTER - | | | | | | LABORATORY | | + + + + + + | % Monocytes | 9.8 | 4.0 - 12.0 % | [facility] | | | | | | [facility] | | | | | | MEDICAL | | | | | | CENTER - | | | | | | LABORATORY | | + + + + + + | % | 2.2 | 0.0 - 5.0 % | [facility] [...] + + + + | Absolute | 5.20 [...] + + | [facility] | [address] | [place] | [phone] | | [facility] | | [address] | | | - LABORATORY | | | | + + + + + | [facility] | [address] | [place] | | | [facility] | | [address] | | | - LABORATORY | | | | + + + + + CBC w/ Auto Differential (09/13/2014 3:30 PM PST) + + + + + + | Component | Value | Ref Range | Performed | Pathologist | | | | | At | Signature | + + + + + + | WBC | 4.9 | 4.0 - 11.0 K/uL | [facility] | | | | | | [facility] | | | | | | MEDICAL | | | | | | CENTER - | | | | | | LABORATORY | | + + + + + + | RBC | 4.39 | 3.70 - 5.20 | [facility] | | | | | M/uL | [facility] | | | | | | MEDICAL | | | | | | CENTER - | | | | | | LABORATORY | | + + + + + + | Hemoglobin | 12.9 | 11.5 - 16.0 | [facility] | | | | | g/dL | [facility] | | | | [...] | | Monocytes | | K/uL | [facility] | | | | | | MEDICAL | | | | | | CENTER - | | | | | | LABORATORY | | + + + + + + | Absolute | 0.20 | 0.00 - 0.40 | [facility] | | | Eosinophils | | K/uL | [facility] | | | | | | MEDICAL | | | | | | CENTER - | | | | | | LABORATORY | | + + + + + + | Absolute | 0.00 | 0.00 - 0.10 | [facility] | | | Basophils | | K/uL | [facility] | | | | [...] + | [facility] | [address] | [place] | [phone] | | [facility] | | [address] | | | - LABORATORY | | | | + + + + + | [facility] | [address] | [place], [place] | | | [facility] | | [address], [facility] | | | - LABORATORY | | | | + + + + + CBC w/ Auto Differential (08/31/2014 3:16 PM [...] | | Lymphocytes | | K/uL | [facility] | | | | [...] | Eosinophils | | K/uL | [facility] | | | | | | MEDICAL | | | | | | CENTER - | | | | | | LABORATORY | | + +-------+ + + + | Absolute | 0.00 | 0.00 - 0.10 | [facility] | | | Basophils | | K/uL | [facility] | | | | [...] | + + + + + | [facility] | [address] | [place] | [phone] | | [facility] | | [address] | | | - LABORATORY | | | | + + + + + | [facility] | [address] | [place], [place] | | | [facility] | | [address] [place] [address] | | | - LABORATORY | | | | + + + + + documented in this encounter Visit Diagnoses + + | Diagnosis | + + | Rectal cancer (HCC) - Primary Malignant neoplasm of rectum | + + documented in this encounter"
--- OUTSIDE RECORDS SUMMARY | ~2020-02-23 | XMS | Encounter Summary ---
Demographics + + + | Address | [address] [facility] [facility] [address] | | | [place] [address] | + + + | Home Phone | | + + + | Preferred Language | Unknown | + + + | Marital Status | Single | + + + | Anglican Affiliation | 1041 | + + + | Race | Unknown | + + + | Ethnic Group | Unknown | + + + Author + + + | Author | [facility] | | | and [place] | + + + | Organization | [facility] | | [...] Team Providers + +------+ + | Care Historic Clothing And Costume Maker Name | Role | Phone | + +------+ + | Cindy Miramontes MD | PCP | | + +------+ + Reason for Visit +--------+ + | Reason | Comments | +--------+ + | Other | | +--------+ + Encounter Details +--------+ + + + + | Date | Type | Department | Care Team | Description | +--------+ + + + + | 02/23/ | Telephone | [facility] | [facility] | Other | | 2014 | | [facility] | MD Casimiro [address] | | | | | [facility] [address] [place] | | | | | [address] [place] | [place] [address] | | | | | [place] [address] | [phone] | | | | | [phone] | | | +--------+ + + + [...]
--- OUTSIDE RECORDS SUMMARY | ~2020-02-23 | XMS | Encounter Summary ---
Demographics + + + | Address | [address] [facility] [address] | | | [place] [address] | + + + | Home Phone | | + + + | Preferred Language | Unknown | + + + | Marital Status | Single | + + + | Catholic Affiliation | 1041 | + + + | Race | Unknown | + + + | Ethnic Group | Unknown | + + + Author + + + | Author | [facility] | | | and [place] | + + + | Organization | [facility] | | | and [place] | + + + | Address | Unknown | + + + | Phone | Unavailable | + + + Support + + +---------+ + | Name | Relationship | Address | Phone | + + +---------+ + | Samanta Stepehnson | ECON | Unknown | | + + +---------+ + Care Team Providers + +------+ + | Care Lap Polisher Name | Role | Phone | + +------+ + | Cindy Miramontes MD | PCP | | + +------+ + Encounter Details +--------+ + + + + | Date | Type | Department | Care Team | Description | +--------+ + + + + | 01/24/ | Documentati | [facility] | Tiera Oconnell, | | | 2014 | on | [facility] | [facility] [address] | | | | | [address] [place] | [place] | | | | | [place] [address] | [address] | | | | | [phone] | | | +--------+ + + + [...]
--- OUTSIDE RECORDS SUMMARY | ~2020-02-23 | XMS | Encounter Summary ---
Demographics + + + | Address | [address] [facility] [address] | | | [place] [address] | + + + | Home Phone | | + + + | Preferred Language | Unknown | + + + | Marital Status | Single | + + + | Confucianist Affiliation | 1041 | + + + | Race | Unknown | + + + | Ethnic Group | Unknown | + + + Author + + + | Author | [facility] | | | and [place] | + + + | Organization | [facility] | | | [...] Team Providers + +------+ + | Care Regional Recruiter Name | Role | Phone | + [...] | ONCOLOGY [address] [place] [facility], [place] | | | | | [place], | [address] | | | | | [place] [address] | | | | | | [phone] | | | +--------+ + + + [...]
--- OUTSIDE RECORDS SUMMARY | ~2020-02-23 | XMS | Encounter Summary ---
Demographics + + + | Address | [address] [facility] [address] | | | [place] [address] | + + + | Home Phone | | + + + | Preferred Language | Unknown | + + + | Marital Status | Single | + + + | Mosque Affiliation | 1041 | + + + | Race | Unknown | + + + | Ethnic Group | Unknown | + + + Author + + + | Author | [facility] | | | and [place] | + + + | Organization | [facility] | | | and [...] Team Providers + +------+ + | Care Research Laboratory Specialist Name | Role | Phone | + [...] | | | | Procedures | [place], [place] | [place] | | | | | [place] OFFICE | [address] | [facility] [place] | | | | | OUTPATIENT | Phone: | [address] Phone: | | | | | VISIT 25 | [phone] | [phone] | | | | | MINUTES | Fax: | Fax: | | | | | | [phone] | [phone] | +--------+--------+ + + + + Encounter Details +--------+ + + + + | Date | Type | Department | Care Team | Description | +--------+ + + + + | 02/12/ | Hospital | [facility] | Wing Frank | Rectal cancer (HCC) | | 2016 | Encounter | [facility] | MD Casimiro [address] | (Primary Dx) | | | | ONCOLOGY CLINIC [address] | [address] [place] | | | | | [address] [place] | [place] [address] | | | | | [place] [address] | [phone] | | | | | [phone] | | | +--------+ + + + [...] + + + | Blood Pressure | 136/92 | 02/13/2016 10:57 AM | | | | | PDT | | + + + + + | Pulse | 73 | 02/13/2016 10:57 AM | | | | | PDT | | + + + + + | Temperature | 36.4 C (97.5 F) | 02/13/2016 10:57 AM | | | | | PDT | | + + + + + | Respiratory Rate | 16 | 02/13/2016 10:57 AM | | | | | PDT | | + + + + + | Oxygen Saturation | 99% | 02/13/2016 10:57 AM | | | | | PDT | | + + + + + | Inhaled Oxygen | - | - | | | Concentration | | | | + + + + + | Weight | 97.1 kg (214 lb 1.1 | 02/13/2016 10:57 AM | | | | oz) | PDT | | + + + + + | Height | - | - | | + + + + + | Body Mass Index | 35.24 | 01/31/2015 11:35 AM | | | [...] | + + + +---------+--------+ + | ibuprofen | Take 600 mg by mouth | | 0 | | | | (ADVIL,MOTRIN) 600 | every 6 hours as | | | | 7 | | MG tablet | needed. | | | | | + + + +---------+--------+ + | non-formulary | Citracel | | 0 | | | | medication | | | | | 7 | + + + +---------+--------+ + | Pseudoephedrine | Take by mouth. | | 0 | | | | HCl (SUDAFED 12 HOUR | | | | | 7 | | PO) | | | | | | + + + +---------+--------+ + documented as of this encounter Progress Notes Wing Frank MD - 02/13/2016 11:35 AM PDTFormatting of this note might be diff erent from the original. Hem-Onc Progress Note [facility] Pt. Name/Age/: Fang Stephenson 50 y.o. 1965 Med. Record Number: [id number] Date of admission: 02/13/2016 Assessment and plan: 1. 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 Ronaldo Hess, [facility] , Nov, 2014 with no histologically identifiable residual disease, Thus ypT0,N0 (0/7), M0 S/p 4 cycles post-surgical adjuvant CapOx chemotherapy: January-March, Counseling session today with patient including patient's daughter and sister first reviewi ng results of imaging studies including CT scan of abdomen and pelvis from earlier last week supporting our impression of ongoing remission. We recommended that this test can continue on an annual basis over the following 4 years. Earlier biochemical testing noting continue d normal CEA antigen. Discussion today with regard to patient's earlier preoperative diagnosis of T3 rectal carci noma but then achieving complete remission with chemoradiotherapy. Based on those responses we believe patient has excellent prognosis for survival which we rate is probably in excess of 90%. Discussion today with regard to Reading active patterns of behavior in patients following c ompletion of treatment for cancer pointing to fast food restaurants, the increasing use of c omfort food, diminished activity levels and then secondary weight gain. We described how th monica probably adding to patient's stress and may be part of the reason why it is difficult fo r patient to get restful sleep. We discussed the mechanism for untoward finding these with an outline of weight loss and carbohydrate restricted diet and an attempt to increase activi ties to approximately 30 minutes of physical activity 5 times per week. Patient might also benefit from participation in Star program available through the cancer Center. Our follow-up will continue on a quarterly basis. Subjective: The patient chart and medications were reviewed in detail and the patient was seen and exam ined. Fang Stephenson is a 50 y.o. female who returns today for follow-up monitoring and repor t concerning surveillance evaluation following treatment of primary rectal carcinoma. Patient is now about 14 months out having achieved a remission from neoadjuvant chemoradiot herapy for a T3 rectal carcinoma from year 2013. Patient went on to undergo rectal resectio n by low abdominal proctectomy and is now out over one year from the time of conclusion of a coloanal last a mycosis. She also underwent 4 cycles of a program of adjuvant CapeOx chemo therapy through the spring of 2014. Patient has returned to full-time work but is struggling in terms of symptoms of fatigue an d also increase in foot pain referable to development of hammertoe. She has also been eatin g at fast food restaurants and is aware that she has gained about 15 pounds in the time [facility] e our most recent visit. She's been trying to exercise the describes that the exercise bike itself causes soreness in the buttocks region. Patient also has soreness with wiping after a bowel movement. She is also prone to episodes of diarrhea such as that occurring followi ng her most recent CT scan using barium as a contrast. PSH: Reviewed, no changes to admission H&P. Review of Systems: Constitutional: Denies fatigue. Denies high fevers, shaking chills, anorexia, nausea, vomit ing, weight loss, or night sweats. Appetite without changes. Pt states fatigue not sleeping well for the last few months. Ear, Nose, Mouth, Throat: Denies odynophagia, dysphagia, or tinnitus. Cardiovascular: Denies shortness of breath, dyspnea on exertion, chest pain, palpitations o r orthopnea. Respiratory: Denies cough, hemoptysis, or sputum production. Gastrointestinal:Pt reports occasional abdominal pain. Denies constipation, melena, or brig ht red blood per rectum. States after her CT having a few days of diarrhea. Occasional blood in stool. Genitourinary: Denies hematuria or dysuria. Musculoskeletal: Denies joint pain or tenderness. Neurologic:States increased headaches. Denies visual changes, or numbness/tingling of the e xtremities. Endocrine: Denies peripheral edema or heat/cold intolerance. States unchanged edema in the left calf. Hematologic: Denies spontaneous bruising or bleeding. Integumentary: Denies rash, wounds or other skin concerns. Pain: Denies pain. Review of systems as above otherwise negative Scheduled Medications: Continuous Infusions: PRN Meds:. Allergy: Allergies Allergen Reactions Latex Redness and irritation during chemotherapy Objectives: Temp: 36.4 C (97.5 F) BP: (!) 136/92 mmHg Pulse: 73 Resp: 16 SpO2: 99 % on Min/Max Temp past 24 hours:Temp Av.4 C (97.5 F) Min: 36.4 C (97.5 F) Max: 3 6.4 C (97.5 F) No intake or output data in the 24 hours ending 02/13/16 1135 Wt. Admission: Weight: 97.1 kg (214 lb 1.1 oz) Wt. Current: Weight: 97.1 kg (214 lb 1.1 oz) Physical Exam: Exam: General: The patient is alert and oriented. No acute distress. Psychiatric: Normal mood and affect. Diagnostic studies: Ct Chest Abdomen Pelvis W Contrast 02/07/2016 CT CHEST ABDOMEN PELVIS W CONTRAST 02/07/2016 9:17 AM HISTORY: Restaging rectal carcinoma. COMPARISON: MRI pelvis 08/10/2014, CT scan 07/05/2014. PROTOCOL: Axial images o f the chest, abdomen, and pelvis were obtained after uneventful administration of 90 mL Omni paque 350 and oral contrast. Coronal and sagittal reformations were acquired. CHEST FINDING S: Neck base is normal. The heart is of normal size. Aorta is normal. The pulmonary arterie s are unremarkable. SVC is normal. No enlarged lymph nodes are seen in the mediastinum, hil a, or axilla. Trachea and esophagus are normal. The bilateral lungs are clear. There is no evidence for pleural effusion or pneumothorax. ABDOMEN/PELVIS FINDINGS: The liver demonstra elbert normal parenchyma. The gallbladder is normal. Biliary ducts are unremarkable. The splee n is unremarkable. The pancreas demonstrates normal parenchyma and a normal pancreatic duct. Adrenal glands are normal. There is stable moderate to severe atrophy of the right kidney with multiple small subcentimeter cysts anteriorly that are too small to characterize. Visua lized right ureter is normal. The left kidney and visualized ureter are normal. Stomach an d jejunum are normal. There is a clump of ileum in the right upper quadrant of the abdomen w ith suture material (image 91). No obstruction is seen in this region. The appendix has a no rmal appearance. Previously observed wall thickening in the rectum has resolved. There is no definite evidence for tumor recurrence. Aorta is nonaneurysmal. The iliac arteries are nor mal. There is no significant abnormality in the portal veins, mesenteric veins, or systemic veins. No enlarged lymph nodes are visualized within the omentum or retroperitoneum. Ther e is no evidence for ascites or free air. Bladder is normal. A low-attenuation fibroid is in the mid fundus of the uterus that measures 1.3 cm and remains stable. An exophytic low-at tenuation fibroid is in the left fundus that measures 2.2 cm and remains stable. Adnexa are unremarkable. BODY WALL FINDINGS: Postoperative changes are in the anterior abdominal wall within the subcutaneous fat. There has been interval development of a moderate right ventral hernia of the anterior abdominal wall that measures 2.8 x 5.2 cm (AP, transverse) with a lo op of small bowel extending into it. There is no evidence for obstruction. There is mild S-s haped scoliosis of the thoracolumbar spine along with moderate spondylosis. Mild disc narrow ing are at L3-4 and L4-5 with vacuum disc phenomenon. IMPRESSION - Resolution of previously observed circumferential wall thickening involving the rectum. Clumping of ileal loops in right upper quadrant of the abdomen with adjacent sutures. No obstruction is seen. This is n onspecific but could represent the presence of adhesions. Interval development of right ed tral hernia involving anterior abdominal wall with loop of small bowel extending into it but no obstruction. Stable fibroids of the uterus. Dictated and Signed by: Bubba Hutchinson MD Electronically signed: 02/07/2016 12:47 PM I have personally reviewed the above images and concur with their impression and straighten ing changes consistent with remission Electronically signed by: Wing Frank, 02/13/2016 11:35 [facility] TIME SPENT 25 MIN. > 50% AT BEDSIDE, WITH FAMILY/PATIENT IN CARE AND ARTICULATION OFFICER ON UNIT AND CO ORDINATION OF CARE Portions of this chart may have been created with [employer] voice recognition software. Occasi onal wrong-word or sound-alike substitutions may have occurred due to the inherent rutherford itations of voice recognition software. Please read the chart carefully and recognize, using context, where these substitutions have occurred. Leah Rodriguez CMA - 02/13/2016 10:58 AM PDTREVIEW OF SYSTEMS Constitutional: Denies fatigue. Denies high fevers, shaking chills, anorexia, nausea, vomit ing, weight loss, or night sweats. Appetite without changes. Pt states fatigue not sleepin g well for the last few months. Ear, Nose, Mouth, Throat: Denies odynophagia, dysphagia, or tinnitus. Cardiovascular: Denies shortness of breath, dyspnea on exertion, chest pain, palpitations o r orthopnea. Respiratory: Denies cough, hemoptysis, or sputum production. Gastrointestinal:Pt reports occasional abdominal pain. Denies constipation, melena, or milagros ght red blood per rectum. States after her CT having a few days of diarrhea. Occasional bloo d in stool. Genitourinary: Denies hematuria or dysuria. Musculoskeletal: Denies joint pain or tenderness. Neurologic:States increased headaches. Denies visual changes, or numbness/tingling of the e xtremities. Endocrine: Denies peripheral edema or heat/cold intolerance. States unchanged edema in the left calf. Hematologic: Denies spontaneous bruising or bleeding. Integumentary: Denies rash, wounds or other skin concerns. Pain: Denies pain. Note: Pt is here for follow up-review CT. No labs. My chart: documented in this encounter Plan of Treatment Not on filedocumented as of this encounter Visit Diagnoses + + | Diagnosis | + + | Rectal cancer (HCC) - Primary Malignant neoplasm of rectum | + + documented in this encounter"
--- OUTSIDE RECORDS SUMMARY | ~2020-02-23 | XMS | Encounter Summary ---
Demographics + + + | Address | [address] [facility] [address] | | | [place] [address] | + + + | Home Phone [...] + | Author | [facility] | | | and [place] | + + + | Organization | [facility] | | | and [...] Team Providers + +------+ + | Care User Interface Engineer Name | Role | Phone | + +------+ + | Kera Hernandez PA-C | PCP | | + +------+ + Reason for Visit Service/Procedure (Routine) +--------+--------+ + + + + | Status | Reason | Specialty | Diagnoses / | Referred By | Referred To | | | | | Procedures | Contact | Contact | +--------+--------+ + + + + | Closed | | Infusion | Diagnoses | | [facility] | | | | Therapy | Malignant | Frank, | Infusion [address] | | | | | neoplasm of | Wign | [address] | | | | | rectum (HCC) | MD Casimiro | [place], | | | | | Procedures | [address] | [place] [address] | | | | | [place] | [place] | Phone: | | | | | [place] | [facility], [place] | [phone] | | | | | INJECTION, 1 | [address] | Fax: | | | | | [place] | Phone: | [phone] | | | | | | [phone] | | | | | | | Fax: | | | | | | | [phone] | | +--------+--------+ + + + + Encounter Details +--------+ + + + + | Date | Type | Department | Care Team | Description | +--------+ + + + + | 10/30/ | Hospital | [facility] | Wing Frank | Rectal cancer (HCC) | | 2017 | Encounter | [facility] CHE[facility] | MD Casimiro [address] | | | | | INFUSION [address] | [address] [place] | | | | | [place], | [place] [address] | | | | | [place] [address] | [phone] | | | | | [phone] | | | +--------+ + + + [...] + + + | Blood Pressure | 112/78 | 10/30/2016 1:43 PM | | | | | PST | | + + + + + | Pulse | 83 | 10/30/2016 1:43 PM | | | | | PST | | + + + + + | Temperature | 36.4 C (97.5 F) | 10/30/2016 1:43 PM | | | | | PST | | + + + + + | Respiratory Rate | 18 | 10/30/2016 1:43 PM | | | | | PST | | + + + + + | Oxygen Saturation | 98% | 10/30/2016 1:43 PM | | | | | PST [...] documented as of this encounter Progress Notes Samanta Will RN - 10/30/2016 1:40 PM PSTHere for rn check and iron infusion. Energy very low. Had colonoscopy a couple weeks ago. Some bleeding continues in bowel movements. A lso had surgery on her foot recently. Intermittent pain from that. Appetite ok. No other mitch nges or concerns doc umented in this encounter Plan of Treatment Not on filedocumented as of this encounter Visit Diagnoses + + | Diagnosis | + + | Rectal cancer (HCC) Malignant neoplasm of rectum | + + documented in this encounter Administered Medications + +---------+ +--------+-------+------+ | Medication Order | MAR | Action | Dose | Rate | Site | | | Action | Date | | | | + +---------+ +--------+-------+------+ | iron sucrose (VENOFER) 200 mg | New Bag | 10/30/19 | 200 mg | 220 | | | in sodium chloride 0.9% 100 mL | | 17 1:31 | | mL/hr | | | IVPB 200 mg, Intravenous, | | PM PST | | | | | Administer over 30 Minutes, | | | | | | | WEEKLY, First dose on Sat10/30/16 | | | | | | | at 1345 | | | | | | + +---------+ +--------+-------+------+ +---+---+ | | | +---+---+ documented in this encounter"
--- OUTSIDE RECORDS SUMMARY | ~2020-02-23 | XMS | Encounter Summary ---
Demographics + + + | Address | [address] [facility] [facility] [address] | | | [place] [address] | + + + | Home Phone [...] + + + | Author | [facility] | | | and [place] | + + + | Organization | [facility] | | | [...] Team Providers + +------+ + | Care Manager Merchandising Name | Role | Phone | + +------+ + | Cindy Miramontes MD | PCP | | + +------+ + Encounter Details +--------+ + + + + | Date | Type | Department | Care Team | Description | +--------+ + + + + | 08/05/ | Orders Only | [facility] | Riegert, Frida | Rectal cancer (HCC) | | 2014 | | [facility] RAD[facility] | MD Alanis [address] | (Primary Dx) | | | | ONCOLOGY [address] | [place], [place] | | | | | [place], | [address] | | | | | [place] [address] | | | | | | [phone] | | | +--------+ + + + [...] Not on filedocumented as of this encounter Results CEA (08/05/2014 10:30 AM PDT) + +-------+ [...] + | [facility] | [address] | [place] | [phone] | | [facility] | | [id number] | | | - LABORATORY | | | | + + + + + | [facility] | [address] | [place] | | | [facility] | | [address], [facility] | | | - LABORATORY | | | | + + + + + Comprehensive Metabolic Panel (08/05/2014 10:30 AM PDT) [...] not | >60Comment: GLOMERULAR | >=60 | [facility] | | | | FILTRATION | mL/min/1.73m2 | [facility] | | | UZBEK | RATE,ESTIMATED | | MEDICAL | | | | mL/min/1.10r5Sodv than | | CENTER - | | [...] 3.8 | 3.2 - 5.0 g/dL | [facility] | | | | | | [facility] | | | | | | MEDICAL | | | | | | CENTER - | | | | | | LABORATORY | | + + + + + + | Bilirubin | 0.4 | 0.1 - 1.5 mg/dL | [facility] | | | Total | | | [facility] | | [...] + + + + | Albumin/Nicol | 1.1 | | [facility] | | [...] + | [facility] | [address] | [place], [place] | [phone] | | [facility] | | [address] | | | - LABORATORY | | | | + + + + + | [facility] | [address] | [place], [place] | | | [facility] | | [id number] | | | - LABORATORY | | [...] | 0.10 | 0.00 - 0.10 | [facility] | [...] [address] | [place] | [phone] | | [facility] | | [address] | | | - LABORATORY | | | | + + + + + | [facility] | [address] | [place], [place] | | | [facility] | | [address], [facility] | | | - LABORATORY | | | | + + + + + documented in this encounter Visit Diagnoses + + | Diagnosis | + + | Rectal cancer (HCC) - Primary Malignant neoplasm of rectum | + + documented in this encounter"
--- OUTSIDE RECORDS SUMMARY | ~2020-02-23 | XMS | Encounter Summary ---
Demographics + + + | Address | [address] [facility] [address] | | | [place] [address] | + + + | Home Phone | | + + + | Preferred Language | Unknown | + + + | Marital Status | Single | + + + | Sabianism Affiliation | 1041 | + + + | Race | Unknown | + + + | Ethnic Group | Unknown | + + + Author + + + | Author | [facility] | | | and [place] | + + + | Organization | [facility] | [...] Team Providers + +------+ + | Care Timber Appraiser Name | Role | Phone | + [...] | | | | neoplasm of | Wing | [address] [place] | | | | | rectum (HCC) | MD Casimiro | [place], | | | | | Procedures | [address] | [place] [address] | | | | | [place] | [place] | Phone: | | | | | [place] | [facility], [place] | [phone] | | | | | INJECTION, 1 | [address] | Fax: | | | | | [place] | Phone: | [phone] | | | | | | [phone] | | | | | | | Fax: | | | | | | | [phone] | | +--------+--------+ + + + + Encounter Details +--------+ + + + + | Date | Type | Department | Care Team | Description | +--------+ + + + + | 03/05/ | Hospital | [facility] | Wing Frank | Rectal cancer (HCC) | | 2017 | Encounter | MED [facility] CHEMO | MD Casimiro [address] | (Primary Dx) | | | | INFUSION [address] | [address] [place] | | | | | [place], | [place] [address] | | | | | [place] [address] | [phone] | | | | | [phone] | | | +--------+ + + + [...]
--- OUTSIDE RECORDS SUMMARY | ~2020-02-23 | XMS | Encounter Summary ---
Demographics + + + | Address | [address] [facility] [address] | | | [place] [address] | + + + | Home Phone | | + + + | Preferred Language | Unknown | + + + | Marital Status | Single | + + + | Temple Affiliation | 1041 | + + + | Race | Unknown | + + + | Ethnic Group | Unknown | + + + Author + + + | Author | [facility] | | | and [place] | + + + | Organization | [facility] | | | and [...] Team Providers + +------+ + | Care Tearoom Host/Hostess Name | Role | Phone | + [...] Closed | | Oncology | Diagnoses | Bonikolai, | Monika, | | | | | Malignant | Kera H, | Wing | | | | | neoplasm of | PA-C 2230 | MD Casimiro | | | | | rectum (HCC) | [address] | [address] | | | | | Procedures | [place] | [address] | | | | | CO OFFICE | [address] | [place], [place] | | | | | OUTPATIENT | [place], | [address] Phone: | | | | | VISIT 25 | [place] | [phone] | | | | | MINUTES | [address] | Fax: | | | | | | Phone: | [phone] | | | | | | [phone] | | | | | | | Fax: | | | | | | | [phone] | | +--------+--------+ + + + + Encounter Details +--------+ + + + + | Date | Type | Department | Care Team | Description | +--------+ + + + + | 06/18/ | Hospital | [facility] | FrankWing | Rectal cancer (HCC) | | 2017 | Encounter | [facility] | MD Casimiro [address] | (Primary Dx) | | | | ONCOLOGY CLINIC [address] [place] | | | | | [address] | [place] [address] | | | | | [place] [address] | [phone] | | | | | [phone] | | | +--------+ + + + [...] + + + | Blood Pressure | 122/79 | 06/18/2017 3:09 PM | | | | | PDT | | + + + + + | Pulse | 74 | 06/18/2017 3:09 PM | | | | | PDT | | + + + + + | Temperature | 36.7 C (98 F) | 06/18/2017 3:09 PM | | | | | PDT | | + + + + + | Respiratory Rate | 18 | 06/18/2017 3:09 PM | | | | | PDT | | + + + + + | Oxygen Saturation | 97% | 06/18/2017 3:09 PM | | | | | PDT | | + + + + + | Inhaled Oxygen | - | - | | | Concentration | | | | + + + + + | Weight | 93.9 kg (207 lb) | 06/18/2017 3:09 PM | | | | | PDT | | + + + + + | Height | - | - | | + + + + + | Body Mass Index | 34.45 | 01/30/2017 10:34 AM | | | | | PDT [...] + documented as of this encounter Progress Wing Pinzon MD - 06/18/2017 3:35 PM PDTFormatting of this note might be diff erent from the original. Hem-Onc Progress Note [facility] Pt. Name/Age/: Fang Ziegler Stephenson 52 y.o. 1965 Med. Record Number: [id number] Date of admission: 06/18/2017 Assessment and plan: 1. 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 Ronaldo Hess, [facility] , Nov, 2014 with no histologically identifiable residual disease, Thus ypT0,N0 (0/7), M0 S/p 4 cycles post-surgical adjuvant CapOx chemotherapy: January-March, Counseling session today to discuss Nieto syndrome as a cause for colorectal cancer. We de scribed a DNA prove reading system which is subject to impairment and that impairment though t to lead to a mutational state conducive for the development of cancer. We discussed the u se of patient's previous rectal biopsy screening through the use of immunohistochemistry to determine if patient at risk for such a syndrome. We also discussed the possibility that sh ould this tissue not be available patient would still be a potential beneficiary from direct blood testing to look for germline mutation. Subjective: The patient chart and medications were reviewed in detail and the patient was seen and exam ined. Fang Stephenson is a 52 y.o. female returns today for follow-up monitoring a remission o f primary carcinoma of the rectum. Interim history mostly unremarkable with patient continuing now full-time work. He is sche duled for elective ventral hernia repair tomorrow and is in the midst of a bowel prep for . In a recent follow-up visit through her primary care clinic question has emerged as to whether patient might have Nieto syndrome. This is a reasonable question given patient's ag e at the time of diagnosis of less than 50. Patient does not have other family members with Nieto syndrome related cancers although patient's father did succumb to the effects of lung cancer. Given patient's age however it is quite reasonable to screen her for this disorder . PSH: Reviewed, no changes to admission H&P. Past Medical History: Diagnosis Date Broken arm age 12 Broken leg age 4 Concussion 12/25 MRSA infection Review of Systems: Constitutional: Reports energy level has been poor, no energy. Reports appetite is good. De nies high fevers, shaking chills, anorexia, nausea, vomiting, weight loss, or night sweats. Ear, Nose, Mouth, Throat: Denies odynophagia, dysphagia, or tinnitus. Cardiovascular: Reports had a chest pain that lasted a couple seconds about 4 days ago. Den ies shortness of breath, dyspnea on exertion, palpitations or orthopnea. Respiratory: Denies cough, hemoptysis, or sputum production. Gastrointestinal: Reports abdominal pain from hernia and groin unchanged. Reports intermitt ent constipation and diarrhea, unchanged. Taking duralax and miralax currently for surgery t omorrow. Reports spotting on toilet paper when wipes. Genitourinary: Denies hematuria or dysuria. Musculoskeletal: Denies joint pain or tenderness. Neurologic: Reports vision changes due to diabetes. Reports pain and tingling on 3 middle t oes bilaterally due to hammer toes. Denies headache. Endocrine: Reports swelling in lower left leg, unchanged. Denies heat/cold intolerance. Hematologic: Denies spontaneous bruising or bleeding. Integumentary: Denies rash, wounds or other skin concerns. Pain: Denies pain today. Review of systems as above otherwise negative Scheduled Medications: Continuous Infusions: PRN Meds:. Allergy: Allergies Allergen Reactions Gabapentin Other (See Comments) Suicidal thoughts Latex Redness and irritation during chemotherapy Nitrofurantoin Rash Current Outpatient Prescriptions on File Prior to Encounter Medication Sig Dispense Refill aspirin 81 mg chewable tablet Take 81 mg by mouth Daily. CHOLECALCIFEROL 1,000 Units by Does not apply route. Loperamide HCl (IMODIUM PO) Take by mouth. metFORMIN (GLUCOPHAGE) 500 mg tablet Take 500 mg by mouth 2 times daily (with breakfast & dinner). methylcellulose (CITRUCEL) powder Take 19 g by mouth Daily. OMEGA 3 1000 MG CAPS Take by mouth. No current facility-administered medications on file prior to encounter. Objectives: Temp: 36.7 C (98 F) BP: 122/79 Pulse: 74 Resp: 18 SpO2: 97 % on Min/Max Temp past 24 hours:Temp Av.7 C (98 F) Min: 36.7 C (98 F) Max: 36.7 C (98 F) No intake or output data in the 24 hours ending 06/18/17 1535 Wt. Admission: Weight: 93.9 kg (207 lb) Wt. Current: Weight: 93.9 kg (207 lb) Physical Exam: Exam: General: The patient is alert and oriented. No acute distress. HEENT: PERRL, Oral mucosa intact. Neck is supple. Cardiovascular: Regular rate and rhythm, no murmur. Respiratory: Clear to auscultation and percussion. Breast: Not erxamined Abdomen: Soft, nontender, no hepatospenomegaly. No palpable masses. Bowel sounds present. Genitourinary: Deferred. Extremities: Nontender, no erythema, no [...] the Assessment and Plan. Recent Labs Lab 06/18/17 1423 WBC 5.1 HGB 12.6 HCT 38.4 PLT 202 Recent Labs Lab 06/18/17 1423 NA 136 K 3.8 CL 107 CO2 22* BUN 14 CREA 0.84 GLU 110* CALCIUM 9.2 BILITOT 0.5 AST 24 ALT 20 ALKPHOS 75 ALBUMIN 4.2 Electronically signed by: Wing Frank, 06/18/2017 15:35 [facility] TIME SPENT 20 MIN. > 50% AT BEDSIDE, WITH FAMILY/PATIENT IN CARE AND REVERSAL PRINT INSPECTOR ON UNIT AND CO ORDINATION OF CARE Portions of this chart may have been created with Tattoodo voice recognition software. Occasi onal wrong-word or sound-alike substitutions may have occurred due to the inherent rutherford itations of voice recognition software. Please read the chart carefully and recognize, using context, where these substitutions have occurred. Jacki Benítez RN - 06/18/2017 2:50 PM PDTREVIEW OF SYSTEMS Constitutional: Reports energy level has been poor, no energy. Reports appetite is good. De nies high fevers, shaking chills, anorexia, nausea, vomiting, weight loss, or night sweats. Ear, Nose, Mouth, Throat: Denies odynophagia, dysphagia, or tinnitus. Cardiovascular: Reports had a chest pain that lasted a couple seconds about 4 days ago. Den ies shortness of breath, dyspnea on exertion, palpitations or orthopnea. Respiratory: Denies cough, hemoptysis, or sputum production. Gastrointestinal: Reports abdominal pain from hernia and groin unchanged. Reports intermitt ent constipation and diarrhea, unchanged. Taking duralax and miralax currently for surgery t omorrow. Reports spotting on toilet paper when wipes. Genitourinary: Denies hematuria or dysuria. Musculoskeletal: Denies joint pain or tenderness. Neurologic: Reports vision changes due to diabetes. Reports pain and tingling on 3 middle t oes bilaterally due to hammer toes. Denies headache. Endocrine: Reports swelling in lower left leg, unchanged. Denies heat/cold intolerance. Hematologic: Denies spontaneous bruising or bleeding. Integumentary: Denies rash, wounds or other skin concerns. Pain: Denies pain today. Note: Here for follow up with Dr. Frank and labs. My chart: Active do cumented in this encounter Plan of Treatment Not on filedocumented as of this encounter Procedures + +--------+ + + + | Procedure Name | Priori | Date/Time | Associated Diagnosis | Comments | | | ty | | | | + +--------+ + + + | IRON AND TRANSFERRIN | STAT | 06/18/2017 | Rectal cancer | Results for this | | | | 2:23 PM | (HCC) | procedure are in the | | | | PDT | | results section. | + +--------+ + + + | CBC WITH | STAT | 06/18/2017 | Rectal cancer | Results for this | | DIFFERENTIAL | | 2:23 PM | (HCC) | procedure are in the | | | | PDT | | results section. | + +--------+ + + + | FERRITIN | STAT | 06/18/2017 | Rectal cancer | Results for this | | | | 2:23 PM | (HCC) | procedure are in the | | | | PDT | | results section. | + +--------+ + + + | CEA | STAT | 06/18/2017 | Rectal cancer | Results for this | | | | 2:23 PM | (HCC) | procedure are in the | | | | PDT | | results section. | + +--------+ + + + | COMPREHENSIVE | STAT | 06/18/2017 | Rectal cancer | Results for this | | METABOLIC PANEL | | 2:23 PM | (HCC) | procedure are in the | | | | PDT | | results section. | + +--------+ + + + documented in this encounter Results Iron and Transferrin (06/18/2017 2:23 PM PDT) + + + + + + | Component | Value | Ref Range | Performed | Pathologist | | | | | At | Signature | + + + + + + | Iron | 42 | 40 - 150 ug/dL | [facility] | | | | | | [facility] | | [facility] | | | [facility] | | | | | | [facility] - | | | | | | LABORATORY | | + + + + + + | TRANSFERRIN | 266.1 | 240.0 - 480.0 | [facility] | | | | | mg/dL | [facility] | | | | | | [facility] | | | | | | CENTER - | | | | | | LABORATORY | | + + + + + + | TIBC | 373 | 235 - 425 ug/dL | [facility] | | | | | | [facility] | | | | | | [facility] | | | | | | CENTER - | | | | | | LABORATORY | | + + + + + + | % | 11.3 (L) | 20.0 - 55.0 % | [...] + | [facility] | [address] | [place] | [phone] | | [facility] | | [address] | | | - LABORATORY | | | | + + + + + Ferritin (06/18/2017 2:23 PM PDT) + +-------+ + + + | Component | Value | Ref Range | Performed | Pathologist | | | | | At | Signature | + +-------+ + + + | FERRITIN | 12 | 11 - 307 ng/mL | [facility] | | | | | | [facility] | [address] | [place], [place] | [phone] | | [facility] | | [address] | | | - LABORATORY | | | | + + + + + CBC with Differential (06/18/2017 2:23 PM PDT) + + + + + + | Component | Value | Ref Range | Performed | Pathologist | | | | | At | Signature | + + + + + + | WBC | 5.1 | 4.0 - 11.0 K/uL | [facility] | | | | | | [facility] | | | | | | MEDICAL | | | | | | CENTER - | | | | | | LABORATORY | | + + + + + + | RBC | 4.82 | 3.70 - 5.20 | [facility] | | | | | M/uL | [facility] | | | | | | MEDICAL | | | | | | CENTER - | | | | | | LABORATORY | | + + + + + + | Hemoglobin | 12.6 | 11.5 - 16.0 | [facility] | | | | | g/dL | [facility] | | | | | | MEDICAL | | | | | | CENTER - | | | | | | LABORATORY | | + + + + + + | Hematocrit | 38.4 | 34.0 - 47.0 % | [facility] | | | | | | [facility] | | | | | | MEDICAL | | | | | | CENTER - | | | | | | LABORATORY | | + + + + + + | MCV | 79.6 (L) | 83.0 - 101.0 fL | [facility] | | | | | | [facility] | | | | | | MEDICAL | | | | | | CENTER - | | | | | | LABORATORY | | + + + + + + | MCH | 26.2 (L) | 28.0 - 35.0 pg | [facility] | | | | | | [facility] | | | | | | MEDICAL | | | | | | CENTER - | | | | | | LABORATORY | | + + + + + + | MCHC | 32.9 | 32.0 - 36.0 | [facility] | | | | | g/dL | [facility] | | | | | | MEDICAL | | | | | | CENTER - | | | | | | LABORATORY | | + + + + + + | RDW-CV | 14.9 | <15.0 % | [facility] | | [...] + + + + | MPV | 8.3 | fL | [facility] | | | | | | [facility] | | | | | | MEDICAL | | | | | | CENTER - | | | | | | LABORATORY | | + + + + + + | % | 58.3 | 45.0 - 82.0 % | [facility] | | | Neutrophils | | | [facility] | | | | | | MEDICAL | | | | | | CENTER - | | | | | | LABORATORY | | + + + + + + | % | 29.9 | 20.0 - 45.0 % | [facility] | | | Lymphocytes | | | [facility] | | | | | | MEDICAL | | | | | | CENTER - | | | | | | LABORATORY | | + + + + + + | % Monocytes | 8.2 | 4.0 - 12.0 % | [facility] | | | | | | [facility] | | | | | | MEDICAL | | | | | | CENTER - | | | | | | LABORATORY | | + + + + + + | % | 3.1 | 0.0 - 5.0 % | [facility] | | | Eosinophils | | | [facility] | | [...] + + + + | Absolute | 2.90 | 1.80 - 8.50 | [facility] | | | Neutrophils | | K/uL | [facility] | | | | | | MEDICAL | | | | | | CENTER - | | | | | | LABORATORY | | + + + + + + | Absolute | 1.50 | 0.60 - 3.20 | [facility] | [...] + | [facility] | [address] | [place] | [phone] | | [facility] | | [address] | | | - LABORATORY | | | | + + + + + Comprehensive Metabolic Panel (06/18/2017 2:23 PM PDT) + + + + + + | Component | Value | Ref Range | Performed | Pathologist | | | | | At | Signature | + + + + + + | Na | 136 | 136 - 149 | [facility] | [...] + + + + | Cl | 107 | 98 - 109 mmol/L | [facility] [...] + + + + | Glucose | 110 (H) | 70 - 109 mg/dL | [facility] | | | | | | [facility] | | | | | | MEDICAL | | | | | | CENTER - | | | | | | LABORATORY | | + + + + + + | BUN | 14 | 7 - 18 mg/dL | [facility] | | | | | | [facility] | | | | | | MEDICAL | | | | | | CENTER - | | | | | | LABORATORY | | + + + + + + | Creatinine | 0.84 | 0.60 - 1.30 | [facility] | | | | | mg/dL | [facility] | | | | | | MEDICAL | | | | | | CENTER - | | | | | | LABORATORY | | + + + + + + | eGFR if not | >60Comment: GLOMERULAR | >=60 | [facility] | | | | FILTRATION | mL/min/1.73m2 | [facility] | | | COMORAN | RATE,ESTIMATED | | MEDICAL | | | | mL/min/1.12r1Imlv than | | CENTER - | | [...] + + + + | Calcium | 9.2 | 8.3 - 10.5 | [facility] | | | | | mg/dL | [facility] | | | | | | MEDICAL | | | | | | CENTER - | | | | | | LABORATORY | | + + + + + + | Albumin | 4.2 | 3.2 - 5.0 g/dL | [facility] [...] + + + + | Total | 7.0 | 6.0 - 7.8 g/dL | [facility] | | | Protein | | | [facility] | | | | | | MEDICAL | | | | | | CENTER - | | | | | | LABORATORY | | + + + + + + | AST | 24Comment: This is an | 10 - 42 [...] + + + + | ALT | 20Comment: This is an | 6 - 45 [...] + + + + | Alkaline | 75Comment: This is an | 40 - 110 U/L | [facility] | | | Phosphatase | appended report. These | | [facility] | | | | results have been | | MEDICAL | | | | appended to a previously | | CENTER - | | | | preliminary verified | | LABORATORY | | | | report. | | | | + + + + + + | Globulin | 2.8 | 2.1 - 3.8 g/dL | [facility] | | | | | | [facility] | | | | | | MEDICAL | | | | | | CENTER - | | | | | | LABORATORY | | + + + + + + | Albumin/Nicol | 1.5 | 0.8 - 2.0 | [facility] | | | bulin Ratio | | | [facility] | | | | | | MEDICAL | | | | | | CENTER - | | | | | | LABORATORY | | + + + + + + | BUN/Creatin | 16.7 | | [facility] | | | ine [...] [address] | [place] | [phone] | | [facility] | | [address] | | | - LABORATORY | | | | + + + + + CEA (06/18/2017 2:23 PM PDT) + +-------+ + + + | Component | Value | Ref Range | Performed | Pathologist | | | | | At | Signature | + +-------+ + + + | CEA | 4.7 | 0.0 - 10.0 | [facility] | | | | | ng/mL | [facility] | | | | [...] [address] | [place] | [phone] | | [facility] | | [address] | | | - LABORATORY | | | | + + + + + documented in this encounter Visit Diagnoses + + | Diagnosis | + + | Rectal cancer (HCC) - Primary Malignant neoplasm of rectum | + + documented in this encounter"
--- OUTSIDE RECORDS SUMMARY | ~2020-02-23 | XMS | Encounter Summary ---
Demographics + + + | Address | [address] [facility] [address] | | | [place] [address] | + + + | Home Phone | | + + + | Preferred Language | Unknown | + + + | Marital Status | Single | + + + | Yarsani Affiliation | 1041 | + + + | Race | Unknown | + + + | Ethnic Group | Unknown | + + + Author + + + | Author | [facility] | | | and [place] | + + + | Organization | [facility] | | | [...] Team Providers + +------+ + | Care Enrollment Counselor Name | Role | Phone | + +------+ + | Cindy Miramontes MD | PCP | | + +------+ + Reason for Visit +--------+ + | Reason | Comments | +--------+ + | Other | | +--------+ + Encounter Details +--------+ + + + + | Date | Type | Department | Care Team | Description | +--------+ + + + + | 09/20/ | Telephone | [facility] | Frida Oquendo | Other | | 2013 | | [facility] | MD Alanis [address] | | | | | ONCOLOGY [address] | [place], [place] | | | | | [place], | [address] | | | | | [place] [address] | | | | | | [phone] | | | +--------+ + + + [...]
--- OUTSIDE RECORDS SUMMARY | ~2020-02-23 | XMS | Encounter Summary ---
Demographics + + + | Address | [address] [facility] [address] | | | [place] [address] | + + + | Home Phone | | + + + | Preferred Language | Unknown | + + + | Marital Status | Single | + + + | Mandaeism Affiliation | 1041 | + + + [...] Team Providers + +------+ + | Care Dominatrix Name | Role | Phone | + [...] [place], [place] | | | | | [place], | [address] | | | | | [place] [address] | | | | | | [phone] | | | +--------+ + + + [...]
--- OUTSIDE RECORDS SUMMARY | ~2020-02-23 | XMS | Encounter Summary ---
Demographics + + + | Address | [address] [facility] [address] | | | [place] [address] | + + + | Home Phone [...] Author + + + | Author | [facility] | | | and [place] | + + + | Organization | [facility] | | | [...] Team Providers + +------+ + | Care Sex Offender Treatment Professional Name | Role | Phone | + [...] + + + | Closed | | Medical | Diagnoses | Markie, | Monika | | | | Oncology / | Malignant | MD Neela | Wing | | | | Oncology | neoplasm of | [address] | MD Casimiro | | | | | rectum (HCC) | [address] | [address] | | | | | | [facility] [address] | [address] [place] | | | | | CONSULT/RECT | [place], [place] | [place], [place] | | | | | [place] | [address] | [address] Phone: | | | | | MARKIE, | Phone: | [phone] | | | | | ([place] | [phone] | Fax: | | | | | CLINIC) | Fax: | [phone] | | | | | Procedures | [phone] | | | | | | [place] OFFICE | | | | | | | OUTPATIENT | | | | | | | VISIT 25 | | | | | | | MINUTES [facility] | | | | | | | MED ONC NEW | | | | | | | PATIENT | | | +--------+--------+ + + + + Encounter Details +--------+ + + + + | Date | Type | Department | Care Team | Description | +--------+ + + + + | 08/03/ | [facility] | [facility] | Wing Frank | Carcinoma of rectum | | 2014 | Encounter | [facility] | MD Casimiro [address] | (HCC) (Primary Dx) | | | | ONCOLOGY CLINIC [address] | [address] | | | | | [address] | [place] [address] | | | | | [place] [address] | [phone] | | | | | [phone] | | | +--------+ + + + [...] + + + | Blood Pressure | 120/72 | 08/03/2014 11:14 AM | | | | | PDT | | + + + + + | Pulse | 77 | 08/03/2014 11:14 AM | | | | | PDT | | + + + + + | Temperature | 36.5 C (97.7 F) | 08/03/2014 11:14 AM | | | | | PDT | | + + + + + | Respiratory Rate | 16 | 08/03/2014 11:14 AM | | | | | PDT | | + + + + + | Oxygen Saturation | 99% | 08/03/2014 11:14 AM | | | | | PDT | | + + + + + | Inhaled Oxygen | - | - | | | Concentration | | | | + + + + + | Weight | 105.7 kg (233 lb 0.4 | 08/03/2014 11:14 AM | | | | oz) | PDT | | + + + + + | Height | 166 cm (5' 5.35") | 08/03/2014 11:14 AM | | | [...] encounter Progress Notes Jen Doherty CMA - 08/03/2014 11:25 AM PDTREVIEW OF SYSTEMS Constitutional: Denies fatigue. Denies high fevers, shaking chills, anorexia, nausea, vomit ing, weight loss, or night sweats. Appetite without changes. Pt weight loss in a month was 12lbs. Ear, Nose, Mouth, Throat: Denies odynophagia, dysphagia, or tinnitus. Cardiovascular: Denies shortness of breath, dyspnea on exertion, chest pain, palpitations o r orthopnea. Respiratory: Denies cough, hemoptysis, or sputum production. Gastrointestinal: Denies abdominal pain, constipation, diarrhea or melena. Pt reports at [facility] sees bright blood in her stool, she started to notice this in 04/26. Genitourinary: Denies hematuria or dysuria. Musculoskeletal: Denies joint pain or tenderness. Neurologic: Denies headache, visual changes, or numbness/tingling of the extremities. Endocrine: Pt reports edema in left leg. Denies heat/cold intolerance. Hematologic: Denies spontaneous bruising or bleeding. Integumentary: Denies rash, wounds or other skin concerns. Pain: Denies pain. Note: Br. Russell from [facility] Recommended pt to have a colonoscopy due to some rectal ble eding this was done 06-24-14,another colonoscopy was done in [facility] 06-22-14, pt does not re member his name. Pt had a bx done in [facility]. Pt is here today referred by the She has sen in [facility]. My chart: documented in this encounter Plan of Treatment Not on filedocumented as of this encounter Visit Diagnoses + + | Diagnosis | + + | Carcinoma of rectum (HCC) - Primary Malignant neoplasm of rectum | + + documented in this encounter
--- OUTSIDE RECORDS SUMMARY | ~2020-02-23 | XMS | Encounter Summary ---
Demographics + + + | Address | [address] [facility] [address] | | | [place] [address] | + + + | Home Phone | | + + + | Preferred Language | Unknown | + + + | Marital Status | Single | + + + | Hindu Affiliation | 1041 | + + + | Race | Unknown | + + + | Ethnic Group | Unknown | + + + Author + + + | Author | [facility] | | | and [place] | + + + | Organization | [facility] | | [...] Team Providers + +------+ + | Care Poultry Field Service Technician Name | Role | Phone | [...] [place] | | | | | [address] [place] | [place] [address] | | | | | [place] [address] | [phone] | | | | | [phone] | | | +--------+ + + + [...]
--- OUTSIDE RECORDS SUMMARY | ~2020-02-23 | XMS | Encounter Summary ---
Demographics + + + | Address | [address] | | | [place] [address] | + + + | Home Phone [...] + + | Author | [facility] | | | and [place] | + + + | Organization | [facility] | | [...] Team Providers + +------+ + | Care Storage Facility Housekeeper Name | Role | Phone | + +------+ + | Cindy Miramontes MD | PCP | | + +------+ + Encounter Details +--------+ + + + + | Date | Type | Department | Care Team | Description | +--------+ + + + + | 02/27/ | Orders Only | [facility] | Wing Frank | Anemia associated | | 2016 | | MED CTR MED[facility] | MD Casimiro [address] | with acute blood | | | | ONCOLOGY CLINIC [address] | [address] [place] | loss (Primary Dx) | | | | [address] [place] | [place] [address] | | | | | [place] [address] | [phone] | | | | | [phone] | | | +--------+ + + + [...] as of this encounter Plan of Treatment + +------+--------+ + + | Name | Type | Priori | Associated Diagnoses | Order Schedule | | | | ty | | | + +------+--------+ + + | CBC w/ Auto | Lab | STAT | Anemia associated | 52 Occurrences | | Differential | | | with acute blood | starting 02/28/2016 | | | | | loss | until 02/27/2017, 3 | | | | | | completed [...] 5.6 | 4.0 - 11.0 K/uL | [facility] | | | | | | [facility]. [...] + | [facility] | [address] | [place], [place] | [phone] | | [facility] | | [address] | | | - LABORATORY | | | | + + + + + CBC w/ Auto Differential (09/03/2016 12:19 PM PST) + + + + + + | Component | Value | Ref Range | Performed | Pathologist | | | | | At | Signature | + + + + + + | WBC | 4.7 | 4.0 - 11.0 K/uL | [facility] | | | | | | [facility] | | | | | [facility] | | | | | | [facility] - | | | | | | LABORATORY | | + + + + + + | RBC | 4.13 | 3.70 - 5.20 | [facility] | | | | | M/uL | [facility] | | | | | | [facility] | | | | | | CENTER - | | | | | | LABORATORY | | + + + + + + | Hemoglobin | 9.2 (L) | 11.5 - 16.0 | [facility] | | | | | g/dL | [facility] | | | | | | MEDICAL | | | | | | CENTER - | | | | | | LABORATORY | | + + + + + + | Hematocrit | 29.1 (L) | 34.0 - 47.0 % | [facility] | | | | | | [facility] | | | | | | MEDICAL | | | | | | CENTER - | | | | | | LABORATORY | | + + + + + + | MCV | 70.4 (L) | 83.0 - 101.0 fL | [facility] | | | | | | [facility] | | | | | | MEDICAL | | | | | | CENTER - | | | | | | LABORATORY | | + + + + + + | MCH | 22.2 (L) | 28.0 - 35.0 pg | [facility] | | | | | | [facility] | | | | | | MEDICAL | | | | | | CENTER - | | | | | | LABORATORY | | + + + + + + | MCHC | 31.6 (L) | 32.0 - 36.0 | [facility] | | | | | g/dL | [facility] | | | | | | MEDICAL | | | | | | CENTER - | | | | | | LABORATORY | | + + + + + + | RDW-CV | 16.8 (H) | <15.0 % | [facility] | | | | | | [facility] | | | | | | MEDICAL | | | | | | CENTER - | | | | | | LABORATORY | | + + + + + + | Platelet | 247 | 140 - 440 K/uL | [facility] [...] + + + + | % | 70.8 | 45.0 - 82.0 % | [facility] | | | Neutrophils | | | [facility] | | | | | | MEDICAL | | | | | | CENTER - | | | | | | LABORATORY | | + + + + + + | % | 17.0 (L) | 20.0 - 45.0 % | [facility] | | | Lymphocytes | | | [facility] | | | | | | MEDICAL | | | | | | CENTER - | | | | | | LABORATORY | | + + + + + + | % Monocytes | 7.3 | 4.0 - 12.0 % | [facility] | | | | | | [facility] | | | | | | MEDICAL | | | | | | CENTER - | | | | | | LABORATORY | | + + + + + + | % | 4.6 | 0.0 - 5.0 % | [facility] [...] + + + + | Absolute | 3.30 | 1.80 - 8.50 | [facility] | | | Neutrophils | | K/uL | [facility] | | | | | | MEDICAL | | | | | | CENTER - | | | | | | LABORATORY | | + + + + + + | Absolute | 0.80 | 0.60 - 3.20 | [facility] | | | Lymphocytes | | K/uL | [facility] | | | | | | MEDICAL | | | | | | CENTER - | | | | | | LABORATORY | | + + + + + + | Absolute | 0.30 [...] [address] | [place] | [phone] | | [facility] | | [address] | | | - LABORATORY | | | | + + + + + Ferritin (06/04/2016 9:35 AM PDT) + +-------+ + + + | Component | Value | Ref Range | Performed | Pathologist | | | | | At | Signature | + +-------+ + + + | FERRITIN | 7 (L) | 11-<307 ng/mL | [facility] | | | | | | [facility] | [address] | [place] | [phone] | | [facility] | | [address] | | | - LABORATORY | | | | + + + + + Iron and Transferrin (06/04/2016 9:35 AM PDT) + +---------+ + + + | Component | Value | Ref Range | Performed | Pathologist | | | | | At | Signature | + +---------+ + + + | Iron | 28 (L) | 40 - 150 ug/dL | [facility] | | | | | [facility] | | | | | | MEDICAL | | | | | | CENTER - | | | | | | LABORATORY | | + +---------+ + + + | TRANSFERRIN | 267.0 | 240.0 - 480.0 | [facility] | | | | | mg/dL | [facility] | | | | | | MEDICAL | | | | | | CENTER - | | | | | | LABORATORY | | + +---------+ + + + | TIBC | 374 | 235 - 425 ug/dL | [facility] | | | | | | [facility] | | | | | | [facility]ICAL | | | | | | CENTER - | | | | | | LABORATORY | | + +---------+ + + + | % | 7.5 (L) | 20.0 - 55.0 % | [...] + + | Performing | Address | [facility] | Phone Number | | Organization | | | | + + + + + | [facility] | [address] | [place] | [phone] | | [facility] | | [address] | | | - LABORATORY | | | | + + + + + CBC w/ Auto Differential (06/04/2016 9:28 AM PDT) + + + + + + | Component | Value | Ref Range | Performed | Pathologist | | | | | At | Signature | + + + + + + | WBC | 4.5 | 4.0 - 11.0 K/uL | [facility] [...] + + + + | Hemoglobin | 10.8 (L) | 11.5 - 16.0 | [facility] | | | | | g/dL | [facility] | | | | | | [facility]ICAL | | | | | | CENTER - | | | | | | LABORATORY | | + + + + + + | Hematocrit | 32.4 (L) | 34.0 - 47.0 % | [facility] | | | | | | [facility] | | | | | | MEDICAL | | | | | | CENTER - | | | | | | LABORATORY | | + + + + + + | MCV | 77.7 (L) | 83.0 - 101.0 fL | [facility] | | | | | [facility] | | | | | | MEDICAL | | | | | | CENTER - | | | | | | LABORATORY | | + + + + + + | MCH | 25.7 (L) | 28.0 - 35.0 pg | [facility] | | | | | | [facility] | | | | | | MEDICAL | | | | | | CENTER - | | | | | | LABORATORY | | + + + + + + | MCHC | 33.1 | 32.0 - 36.0 | [facility] | | | | | g/dL | [facility] | | | | | | MEDICAL | | | | | | CENTER - | | | | | | LABORATORY | | + + + + + + | RDW-CV | 16.8 (H) | <15.0 % | [facility] | | | | | | [facility] | | | | | | MEDICAL | | | | | | CENTER - | | | | | | LABORATORY | | + + + + + + | Platelet | 238 | 140 - 440 K/uL | [facility] | | | Count | | | [facility] | | | | | | MEDICAL | | | | | | CENTER - | | | | | | LABORATORY | | + + + + + + | MPV | 7.8 | fL | [facility] | | | | | | [facility] | | | | | | MEDICAL | | | | | | CENTER - | | | | | | LABORATORY | | + + + + + + | % | 63.7 | 45.0 - 82.0 % | [facility] | | | Neutrophils | | | [facility] | | | | | | MEDICAL | | | | | | CENTER - | | | | | | LABORATORY | | + + + + + + | % | 23.1 | 20.0 - 45.0 % | [facility] | | | Lymphocytes | | | [facility] | | | | | | MEDICAL | | | | | | CENTER - | | | | | | LABORATORY | | + + + + + + | % Monocytes | 10.0 | 4.0 - 12.0 % | [facility] | | | | | | [facility] | | | | | | MEDICAL | | | | | | CENTER - | | | | | | LABORATORY | | + + + + + + | % | 2.8 | 0.0 - 5.0 % | [facility] [...] [address] | [place] | [phone] | | [facility] | | [address] | | | - LABORATORY | | | | + + + + + documented in this encounter Visit Diagnoses + + | Diagnosis | + + | Anemia associated with acute blood loss - Primary Acute posthemorrhagic anemia | + + documented in this encounter"
--- OUTSIDE RECORDS SUMMARY | ~2020-02-23 | XMS | Encounter Summary ---
Demographics + + + | Address | [address] [facility] [facility] [address] | | | [place] [address] | + + + | Home Phone [...] + + + | Author | [facility] | | | and [place] | + + + | Organization | [facility] | | [...] Providers + +------+ + | Care Leather Production Machine Operator Name | Role | Phone [...] [place] | | | | | [address] [place] | [place] [address] | | | | | [place] [address] | [phone] | | | | | [phone] | | | +--------+ + + + [...]
--- OUTSIDE RECORDS SUMMARY | ~2020-02-23 | XMS | Encounter Summary ---
Demographics + + + | Address | [address] [facility] [address] | | | [place] [address] | + + + | Home Phone | | + + + | Preferred Language | Unknown | + + + | Marital Status | Single | + + + | Druze Affiliation | 1041 | + + + | Race | Unknown | + + + | Ethnic Group | Unknown | + + + Author + + + | Author | [facility] | | | and [place] | + + + | Organization | [facility] | | | [...] Team Providers + +------+ + | Care Bonded Structures Repairer Name | Role | Phone | + [...] | | | Therapy | Malignant | Monika, | Infusion [address] | | | | | neoplasm of | Wing | [address] | | | | | rectum (HCC) | Casimiro, MD | [place], | | | | | Procedures | [address] | [place] [address] | | | | | [place] | ST [place] | Phone: | | | | | [place] | [place], [place] | [phone] | | | | | , [place], [address] | [address] | Fax: | | | | | [place] | Phone: | [phone] | | | | | [place] | [phone] | | | | | | [place] | Fax: | | | | | | [place] | [phone] | | | | | | DEXAMETHASON | | | | | | | E, .25 MG | | | | | | | WI LORAZEPAM | | | | | | | INJECTION, | | | | | | | 2 MG [place] | | | | | | | OXALIPLATIN, | | | | | | | .5 MG [place] | | | | | | | NORMAL | | | | | | | SALINE | | | | | | | SOLUTION | | | | | | | INFUS, 500 | | | | | | | ML [place] | | | | | | | NORMAL | | | | | | | SALINE | | | | | | | SOLUTION | | | | | | | INFUS, 250 | | | | | | | ML [place] | | | | | | | STERILE | | | | | | | WATER/SALINE | | | | | | | , 10 ML [place] | | | | | | | INJ HEPARIN | | | | | | | SODIUM PER | | | | | | | 1000U [place] | | | | | | | CHEMOTHER, | | | | | | | IV INFUSION, | | | | | | | 1 HR [place] | | | | | | | CHEMOTHER, | | | | | | | IV PUSH,EA | | | | | | | ADD DRUG WI | | | | | | | CHEMOTHER, | | | | | | | IV INFUSION, | | | | | | | EA HR WI | | | | | | | CHEMOTHER,NO | | | | | | | N-HORMONE | | | | | | | ANTI-NEOPL, | | | | | | | SUB-Q/IM WI | | | | | | | CHEMOTHER | | | | | | | HORMON | | | | | | | ANTINEOPL | | | | | | | SUB-Q/IM | | | +--------+--------+ + + + + Encounter Details +--------+ + + + + | Date | Type | Department | Care Team | Description | +--------+ + + + + | 01/31/ | Hospital | [facility] | Artur, | Rectal cancer (HCC) | | 2014 | Encounter | [facility] CHE[facility] | Casimiro Crockett MD [address] | | | | | INFUSION [address] | [address] [place] | | | | | [place], | [place] [address] | | | | | [place] [address] | [phone] | | | | | [phone] | | | +--------+ + + + [...] + documented as of this encounter Progress Jeannette Santana RN - 01/31/2015 3:00 PM PDTPatient discharged in satisfactory conditio n. Discharged ambulatory. With family. To home. Verified that patient has antinausea medications at home. Future appointments and After Visit Summary (AVS) provided. documented in this encounter Plan of Treatment Not on filedocumented as of this encounter Visit Diagnoses + + | Diagnosis | + + | Rectal cancer (HCC) Malignant neoplasm of rectum | + + documented in this encounter Administered Medications + +--------+ +------+------+------+ | Medication Order | MAR | Action | Dose | Rate | Site | | | Action | Date | | | | + +--------+ +------+------+------+ | dexamethasone (DECADRON) tablet | Given | 02/01/20 | 4 mg | | | | 4 mg 4 mg, Oral, ONCE, Mon | | 15 12:26 | | | | | 15 at 1230, For 1 dose, | | PM PDT | | | | | Administer 30 minutes before | | | | | | | chemotherapy., | | | | | | + +--------+ +------+------+------+ +---+---+ | | | +---+---+ + +-------+ +------+---+---+ | ondansetron (ZOFRAN ODT) | Given | 02/01/20 | 8 mg | | | | disintegrating tablet 8 mg 8 mg, | | 15 12:26 | | | | | Oral, ONCE, 01/31/15 at 1230, | | PM PDT | | | | | For 1 dose, Administer 30 | | | | | | | minutes before chemotherapy., | | | | | | + +-------+ +------+---+---+ +---+---+ | | | +---+---+ documented in this encounter"
--- OUTSIDE RECORDS SUMMARY | ~2020-02-23 | XMS | Encounter Summary ---
Demographics + + + | Address | [address] [facility] [address] | | | [place] [address] | + + + | Home Phone | | + + + | Preferred Language | Unknown | + + + | Marital Status | Single | + + + | Gnosticism Affiliation | 1041 | + + + [...] Team Providers + +------+ + | Care Telecommunications Engineer Name | Role | Phone | + +------+ + | Kera Hernandez PA-C | PCP | | + +------+ + Encounter Details +--------+ + + + + | Date | Type | Department | Care Team | Description | +--------+ + + + + | 09/13/ | Telephone | [facility] | Wing Frank | | | 2013 | | MED CTR MEDICAL | MD Casimiro [address] | | | | | ONCOLOGY CLINIC [address] | [address] [place] | | | | | [address] [place] | [place] [address] | | | | | [place] [address] | [phone] | | | | | [phone] | | | +--------+ + + + [...]
--- OUTSIDE RECORDS SUMMARY | ~2020-02-23 | XMS | Encounter Summary ---
Demographics + + + | Address | [address] [facility] [address] | | | [place] [address] | + + + | Home Phone | | + + + | Preferred Language | Unknown | + + + | Marital Status | Single | + + + | Episcopal Affiliation | 1041 | + + + | Race | Unknown | + + + | Ethnic Group | Unknown | + + + Author + + + | Author | [facility] | | | and [place] | + + + | Organization | [facility] | | | and [...] Team Providers + +------+ + | Care Bar Attendant Name | Role | Phone | + [...] | | | | | CONSULT/RECT | [place], [place] | [place], [place] | | | | | [place] | [address] | [address] Phone: | | | | | [place], | Phone: | [phone] | | | | | ([place] | [phone] | Fax: | | | | | CLINIC) | Fax: | [phone] | | | | | Procedures | [phone] | | | | | | [place] OFFICE | | | | | | [...] + + + + | 08/03/ | [facility] | [facility] | Wing Frank | Carcinoma of rectum | | 2014 | Encounter | MED CTR MEDICAL | MD Casimiro [address] | (HCC) (Primary Dx) | | | | ONCOLOGY CLINIC [address] | [address] | | | | | [address] | [place] [address] | | | | | [place] [address] | [phone] | | | | | [phone] | | | +--------+ + + + [...] constipation, diarrhea or melena. Pt [facility] at [facility] sees bright blood in her stool, she [...] Pain: Denies pain. Note: Br. Russell from [facility] Recommended pt to have a colonoscopy due to some rectal ble eding this was done 06-24-14,another colonoscopy was done in [place] 06-22-14, pt does not re member his name. Pt had a bx done in [place]. Pt is here today referred by the She has sen in [place]. My chart: documented in this encounter Plan of Treatment Not on filedocumented as of this encounter Visit Diagnoses + + | Diagnosis | + + | Carcinoma of rectum (HCC) - Primary Malignant neoplasm of rectum | + + documented in this encounter
--- OUTSIDE RECORDS SUMMARY | ~2020-02-23 | XMS | Encounter Summary ---
Demographics + + + | Address | [address] [facility] [address] | | | [place] [address] | + + + | Home Phone | | + + + | Preferred Language | Unknown | + + + | Marital Status | Single | + + + | Congregation Affiliation | 1041 | + + + [...] Providers + +------+ + | Care Timber Management Technician Name | Role | Phone | [...] | +--------+ + + + + | 05/02/ | Telephone | [facility] | [facility] | Other | | 2014 | | [facility] RAD[facility] | MD Casimiro [address] | | | | | ONCOLOGY [address] | [address] [place] | | | | | [place], | [place] [address] | | | | | [place] [address] | [phone] | | | | | [phone] | | | +--------+ + + + [...]
--- OUTSIDE RECORDS SUMMARY | ~2020-02-23 | XMS | Encounter Summary ---
Demographics + + + | Address | [address] [facility] [address] | | | [place] [address] | + + + | Home Phone [...] + + + | Author | [facility] | | | and [place] | + + + | Organization | [facility] | | | [...] Team Providers + +------+ + | Care Coating And Baking Operator Name | Role | Phone | [...] ST [place] | | | | | [place] OFFICE | [address] | [facility] | | | | | OUTPATIENT | Phone: | [phone] Phone: | | | | | VISIT 25 | [phone] | [phone] | | | | | MINUTES | Fax: | Fax: | | | | | | [phone] | [phone] | +--------+--------+ + + + + Encounter Details +--------+ + + + + | Date | Type | Department | Care Team | Description | +--------+ + + + + | 02/12/ | Hospital | [facility] | Wing Frank | Rectal cancer (HCC) | | 2016 | Encounter | MED CTR MEDICAL | MD Casimiro [address] | (Primary Dx) | | | | ONCOLOGY CLINIC [address] | [address] [place] | | | | | [address] [place] | [place] [address] | | | | | [place] [address] | [phone] | | | | | [phone] | | | +--------+ + + + [...] erent from the original. Hem-Onc Progress Note [facility] Pt. Name/Age/: Fang Stephenson 50 y.o. 1965 Med. Record Number: [id number] Date of admission: 02/13/2016 Assessment and plan: 1. 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 Ronaldo Hess, [facility] , Nov, 2014 with no [...] of 90%. Discussion today with regard to [place] active patterns of behavior in patients following [...] gained about 15 pounds in the time [facility] e our most recent visit. She's [...] signed by: Wing Frank, 02/13/2016 11:[address] [facility] TIME SPENT 25 MIN. > 50% AT BEDSIDE, WITH FAMILY/PATIENT IN CARE AND MOBILE TESTER ON UNIT AND CO ORDINATION OF CARE Portions of this chart may have been created with [employer] voice recognition software. Occasi onal wrong-word or [...]
--- OUTSIDE RECORDS SUMMARY | ~2020-02-23 | XMS | Encounter Summary ---
Demographics + + + | Address | [address] [facility] [address] | | | [place] [address] | + + + | Home Phone [...] Team Providers + +------+ + | Care Imaging Tech Name | Role | Phone | [...] + + + + | 01/24/ | Telephone | [facility] | [facility] | Other | | 2014 | | [facility] MEDICAL | MD Casimiro [address] | | | | | ONCOLOGY CLINIC [address] | [address] [place] | | | | | [address] [place] | [place] [address] | | | | | [place] [address] | [phone] | | | | | [phone] | | | +--------+ + + + [...]
--- OUTSIDE RECORDS SUMMARY | ~2020-02-23 | XMS | Encounter Summary ---
Demographics + + + | Address | [address] [facility] [address] | | | [place] [address] | + + + | Home Phone | | + + + | Preferred Language | Unknown | + + + | Marital Status | Single | + + + | Religion Affiliation | 1041 | + + + | Race | Unknown | + + + | Ethnic Group | Unknown | + + + Author + + + | Author | [facility] | | | and [place] | + + + | Organization | [facility] | | | [...] Team Providers + +------+ + | Care Shell Molding Roller Blast Operator Name | Role | Phone | + +------+ + | Cindy Miramontes MD | PCP | | + +------+ + Reason for Visit + + + | Reason | Comments | + + + | Medication | | | Management | | + + + Encounter Details +--------+ + + + + | Date | Type | Department | Care Team | Description | +--------+ + + + + | 08/09/ | Telephone | [facility] | Maria G Cee, | Medication | | 2013 | | MED CTR MEDICAL | RN | Management | | | | ONCOLOGY CLINIC [address] | | | | | | [address] | | | | | | [place] [address] | | | | | | [phone] | | | +--------+ + + + [...]
--- OUTSIDE RECORDS SUMMARY | ~2020-02-23 | XMS | Encounter Summary ---
Demographics + + + | Address | [address] [facility] [address] | | | [place] [address] | + + + | Home Phone | | + + + | Preferred Language | Unknown | + + + | Marital Status | Single | + + + | Church Affiliation | 1041 | + + + | Race | Unknown | + + + | Ethnic Group | Unknown | + + + Author + + + | Author | [facility] | | | and [place] | + + + | Organization | [facility] | | | [...] Team Providers + +------+ + | Care Appliance Sales Associate Name | Role | Phone | + +------+ + | Cindy Miramontes MD | PCP | | + +------+ + Reason for Visit + + + | Reason | Comments | + + + | Psychosocial Support | | + + + Encounter Details +--------+ + + + + | Date | Type | Department | Care Team | Description | +--------+ + + + + | 09/17/ | Documentati | [facility] | [place] Daniels, | Psychosocial Support | | 2013 | on | MED CTR MEDICAL | DIRECTOR EXPORT | | | | | ONCOLOGY CLINIC [address] | | | | | | [address] | | | | | | [place] [address] | | | | | | [phone] | | | +--------+ + + + [...] documented as of this encounter Progress Notes [place] Daniels MSW - 09/17/2014 4:35 PM PSTPatient, Fang Stephenson, seen for Patient cons ultation. Fang is being treated for rectal cancer. She is single and lives in [place]. 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 Fang was offered lodging at the [employer] however she has decided to drive from [employer] for her daily radiation. She presents as alert and oriented X4 and reports no history of depression or anxiety. There is no evidence of thought disorder or other mental illness. Fang reports level of distress is 6 on a 10 point scale. She attributes her distress to th e unknown and reports feeling fearful, nervous, sad, and worried. She reports an adequate krueger pport system and good coping skills. This social security benefits interviewer allowed for expression of feeling a nd provided supportive counseling and information regarding the emotional aspects of a cance r diagnosis and treatment. Encouraged Fang to attend community support group and access [facility] support from this social security benefits interviewer. Also offered literature on her diagnosis. This [facility] worker is available to provide emotional support and additional community resource info rmation and referral as needed. Fang is aware of support services and how to access them. SELF RISING FLOUR MIXER will follow up at appointments and by phone as needed. documented in this encounter Plan of Treatment Not on filedocumented as of this encounter Visit Diagnoses Not on filedocumented in this encounter"
--- OUTSIDE RECORDS SUMMARY | ~2020-02-23 | XMS | Encounter Summary ---
Demographics + + + | Address | [address] [facility] [address] | | | [place] [address] | + + + | Home Phone [...] + + | Author | [facility] | | | and [place] | + + + | Organization | [facility] | | | [...] Team Providers + +------+ + | Care Lodging Facilities Attendant Name | Role | Phone | [...] + + + | Closed | | Radiation | Diagnoses | Kulwinder, | Azra | | | | Oncology | Malignant | MD Cindy | Frida Thapa MD | | | | | neoplasm of | [address] | [address] | | | | | rectum (HCC) | [address] [place] [address] | | | | | Procedures | [place] | [place], | | | | | [place] OFF[place] | [address] | [place] [address] | | | | | OUTPATIENT | Phone: | Phone: | | | | | VISIT 25 | [phone] | [phone] | | | | | MINUTES | Fax: | Fax: | | | | | | [phone] | [phone] | +--------+--------+ + + + + Encounter Details +--------+ + + + + | Date | Type | Department | Care Team | Description | +--------+ + + + + | 12/29/ | Hospital | [facility] | Frida Oquendo | Rectal cancer (HCC) | | 2015 | Encounter | [facility] | MD Alanis [address] | (Primary Dx) | | | | ONCOLOGY [address] [place] | | | | | [place], | [address] | | | | | [place] [address] | | | | | | [phone] | | | +--------+ + + + [...] documented as of this encounter Progress Notes Frida Grossman MD - 12/31/2014 4:47 PM PDT Radiation Oncology Follow-up ICD/Diagnosis: 154.1 - Malignant neoplasm of rectum, Diagnosed 08/03/2014 (Active) CC: Shon Pina M.D. Cindy Miramontes M.D. Wing Frank M.D. Alexis Holland M.D. Ronaldo Tolbert M.D. Chief Complaint/History of Present Illness: 49 year-old woman with a low lying rectal adenocarcinoma, Stage IIA, uT3 N0 cM0. She was treated with neoadjuvant chemoradiotherapy, 50.4 g in 28 fractions with concurrent Capecitab ine, completed on 09/28/14. Subsequently underwent LAR with TME and diverting loop ileostom y demonstrating a complete response, ypT0N0. Mrs. Stephenson was last seen on the completion of her radiation treatment 09/29/14, she returns today for routine three-month follow-up. In the interim she has undergone an LAR with TME and diverting loop ileostomy by Dr. Tolbert on 11/23/14. Medically she has been recovering well from surgery. Immediately postoperative she had significant difficulty with depressio n and reports thoughts of suicide. Today she reports her family has been extremely supporti ve and she is coping much better. Denies any current thoughts of suicide. She is actively working to lose weight and is on approximately 22 pounds with reports of i mprovement glycemic control. She has healed well from surgery. Managing ileostomy and loos e stools. Experiences occasional mucus per rectum, no bleeding. She has met with Dr. Darrel peterson and his report indicates he is considering adjuvant chemotherapy, which is a standard of care. During denies difficulty with urination, dysuria or hematuria. She also denies vaginal jazz n or discharge. Review of Systems: ROS Constitutional Abnormal - Complains of lack of appetite, lethargy and rigors / chills. Denies fatigue, fever, malaise, night sweats and change in weight. ROS Allergic/Immunologic Normal - Denies allergies and adverse reactions. ROS Eyes Normal - Denies blurred vision, double vision, lacrimation, night blindness, visua l difficulties and photophobia. ROS ENMT Normal - Denies dysphagia, ear pain, epistaxis, esophagitis, problems with hearing , mouth dryness, oral bleeding, otitis, sinusitis, sputum production, stomatitis, altered ta melyssa and tinnitus. ROS Neck Normal - Denies neck masses, muscle weakness, neck pain, decreased range of motion and swelling of the neck. ROS Integumentary Normal - Denies alopecia, blistering, bruising, dry skin, nail changes, p hotosensitivity, pruritus, rash and urticaria. ROS Breasts Normal - Denies breast masses, nipple discharge, nipple inversion and pain. ROS Cardiovascular Normal - Denies arrhythmias, chest pain, dyspnea, edema, orthopnea and p alpitations. ROS Respiratory Normal - Denies cough, dyspnea, hemoptysis, hiccoughs, pleuritic chest pain and wheezing. ROS Gastrointestinal Abnormal - Complains of nausea. Denies abdominal pain, change in bowel habits, constipation, diarrhea, heartburn / dyspepsia, hematemesis, hematochezia, hemorrhoi ds, melena / GI bleeding, pain / cramping, satiety and vomiting. ROS Genitourinary (F) Normal - Denies dysuria, frequency, genital masses, hematuria, incont inence, nocturia, renal stone disease, problems with sexual function, urgency, urine color c hange, vaginal discharge / bleeding and vaginal spotting. ROS Musculoskeletal Normal - Denies arthritis, bone pain, joint pain, muscle weakness and d ecreased range of motion. ROS Neurologic Normal - Denies disorientation, dizziness, abnormal gait, headaches, insomni a, memory loss, motor weakness, sensory problems, paralysis, seizure and stroke. ROS Psychiatric Normal - Denies delusions, hallucinations, mood swings, depression and euph oria. ROS Endocrine Abnormal - Complains of diabetes. Denies hot flashes, menstrual irregularitie s and thyroid disease. ROS Hematologic/Lymphatic Normal - Denies easy bruising and tender or enlarged lymph nodes. Medications: Aspirin 81 mg TABLET q.d. Calcium TABLET q.d. Fish Oil CAPSULE Ibuprofen 600mg TABLET Take as Directed Immodium TABLET Take as Directed Lisinopril 10 mg Metformin HCL TABLET Oxycodone 5mg TABLET Take as Directed Vitamin D Allergies: No Known Allergies Physical Exam: Performed on 12/29/2014, 11:41 Weight 99.6 kg Temperature 36.9 C Pulse 89 / min Respiration 16 / min BP 97/76 mm(hg) O2 Sat 98 % Pain 6 General: Healthy appearing woman in no acute medical distress. KPS: 80 HEENT: Pupils equal, round and reactive to light. No conjunctival icterus or injection. EOM I. Oral, moist mucus membranes. Lymphatic: No cervical, supraclavicular or axillary lymphadenopathy. Cardiovascular: Regular rate and rhythm, no murmur. Pulmonary: Breath sounds heard throughout, no adventitial sounds or increased work of breat silviano at rest. Abdomen: Soft, non-tender, no masses or organomegaly detected. Stoma in place , appearing liquid stool in bag. Extremities: Upper and lower extremities warm and well perfused with no upper or lower extr emity edema. Neurologic: Alert, oriented and appropriated in conversation. CN II-IX grossly intact. Moves all 4 extremities normally with normal gait. Psychiatric: Appropriate. Rectal: Gentle rectal exam performed with presence of sludge control operator. Rectal tone. Questionnaires: Are you having pain? Yes Where does it hurt most? skin on abdomen at opening of ostomy. Rate your pain from 0-10: 0-10 scale with 0 = no pain and 10= worst pain 6 Describe your pain (quality) i.e. aching, sharp, stabbing, etc. Pulling sensation What do you use for pain medication? Name and dose Oxycodone What is your numerical pain rating after taking pain medication? 0-10 scale with 0 = no pain and 10= worst pain 3 Labs: See EMR for complete list Diagnosis: 154.1 - Malignant neoplasm of rectum, Diagnosed 08/03/2014 (Active) ,. Impression/Plan: 49 year-old woman with a low lying rectal adenocarcinoma, Stage IIA, uT3 N0 cM0. She was treated with neoadjuvant chemoradiotherapy, 50.4 g in 28 fractions with concurrent Capecitab ine, completed on 09/28/14. Subsequently underwent LAR with TME and diverting loop ileostom y demonstrating a complete response, ypT0N0. During is recovering well from surgery. There does not appear to be in the residual side e ffects from radiation. We discussed risks for vaginal stenosis following pelvic radiation. Vaginal dilator instructions were given. Dr. Frank indicates he is considering standa rd adjuvant chemotherapy with FOLFOX. She has been cleared surgically to proceed with this therapy. She plans to undergo reversal of the loop ileostomy after chemotherapy. Dr. Tommy grewal plans to perform flexible sigmoidoscopy in 3 months Following completion of therapy krueger rveillance should consist of apical follow-up every 3-6 months with CEA monitoring, CT chest and pelvis can be performed annually an annual colonoscopy. She was also encouraged to continue reaching out to friends and family for emotional suppor t. She is disinterested in a support group. Follow up in my office in 3 months. Thank you for allowing me to participate in the care of Fang Stephenson. If you should have any questions regarding this evaluation, please do not hesitate to contact me. Frida Kaiser M.D. Radiation Oncologist Department of Radiation Oncology [facility] This note was transcribed using [employer] speech recognition software. As a result, there may be unintended for medical and/or spelling errors. Every attempt is made to correct dictati on. If there are any questions or errors please contact our office. donnell, Frida Thapa MD - 12/29/2014 12:00 AM PDTPATIENT: Fang MuhammadS:12/29/2014MR#: [id number]:1965 Radiation Oncology Follow-up Clinic Note ICD/Diagnosis: 154.1 - Malignant neoplasm of rectum, Diagnosed 08/03/2014 (Active) CC: Shon Pina M.D. Cindy Miramontes M.D. Wing Frank M.D. Alexis Holland M.D. Ronaldo Tolbert M.D. Chief Complaint/History of Present Illness: 49 year-old woman with a low lying rectal adenocarcinoma, Stage IIA, uT3 N0 cM0. She was treated with neoadjuvant chemoradiotherapy, 50.4 g in 28 fractions with concurrent Capecit abine, completed on 09/28/14. Subsequently underwent LAR with TME and diverting loop ileos karon demonstrating a complete response, ypT0N0. Mrs. Stephenson was last seen on the completion of her radiation treatment 09/29/14, she return s today for routine three-month follow-up. In the interim she has undergone an LAR with TM E and diverting loop ileostomy by Dr. Tolbert on 11/23/14. Medically she has been recover ing well from surgery. Immediately postoperative she had significant difficulty with depre ssion and reports thoughts of suicide. Today she reports her family has been extremely krueger pportive and she is coping much better. Denies any current thoughts of suicide. She is actively working to lose weight and is on approximately 22 pounds with reports of i mprovement glycemic control. She has healed well from surgery. Managing ileostomy and loos e stools. Experiences occasional mucus per rectum, no bleeding. She has met with Dr. Sai senior and his report indicates he is considering adjuvant chemotherapy, which is a standar d of care. During denies difficulty with urination, dysuria or hematuria. She also denies vaginal pa in or discharge. Review of Systems: ROS ConstitutionalAbnormal - Complains of lack of appetite, lethargy and rigors / chills. Denies fatigue, fever, malaise, night sweats and change in weight. ROS Allergic/Immunologic Normal - Denies allergies and adverse reactions.ROS EyesNormal - Denies blurred vision, maren ble vision, lacrimation, night blindness, visual difficulties and photophobia.ROS ENMTNorma l - Denies dysphagia, ear pain, epistaxis, esophagitis, problems with hearing, mouth dryne ss, oral bleeding, otitis, sinusitis, sputum production, stomatitis, altered taste and tinn itus.ROS NeckNormal - Denies neck masses, muscle weakness, neck pain, decreased range of mo tion and swelling of the neck.ROS IntegumentaryNormal - Denies alopecia, blistering, bruisi ng, dry skin, nail changes, photosensitivity, pruritus, rash and urticaria.ROS BreastsNorma l - Denies breast masses, nipple discharge, nipple inversion and pain.ROS CardiovascularNo rmal - Denies arrhythmias, chest pain, dyspnea, edema, orthopnea and palpitations.ROS Respi ratoryNormal - Denies cough, dyspnea, hemoptysis, hiccoughs, pleuritic chest pain and wheez ing.ROS Gastrointestinal Abnormal - Complains of nausea. Denies abdominal pain, change in b owel habits, constipation, diarrhea, heartburn / dyspepsia, hematemesis, hematochezia, hem orrhoids, melena / GI bleeding, pain / cramping, satiety and vomiting.ROS Genitourinary (F) Normal - Denies dysuria, frequency, genital masses, hematuria, incontinence, nocturia, deandre l stone disease, problems with sexual function, urgency, urine color change, vaginal discha rge / bleeding and vaginal spotting.ROS MusculoskeletalNormal - Denies arthritis, bone pain , joint pain, muscle weakness and decreased range of motion.ROS NeurologicNormal - Denies disorientation, dizziness, abnormal gait, headaches, insomnia, memory loss, motor weakness, sensory problems, paralysis, seizure and stroke.ROS PsychiatricNormal - Denies delusions, hallucinations, mood swings, depression and euphoria.ROS EndocrineAbnormal - Complains of d iabetes. Denies hot flashes, menstrual irregularities and thyroid disease.ROS Hematologic/ LymphaticNormal - Denies easy bruising and tender or enlarged lymph nodes. Medications: Aspirin 81 mg TABLET q.d. Calcium TABLET q.d. Fish Oil CAPSULE Ibuprofen 600mg TABLET Take as Directed Immodium TABLET Take as Directed Lisinopril 10 mg Metformin HCL TABLET Oxycodone 5mg TABLET Take as Directed Vitamin D Allergies: No Known Allergies Physical Exam: Performed on 12/29/2014, 11:41Weight 99.6 kg Temperature 36.9 C Pulse 89 / min Respiration 16 / mi n BP97/76 mm(hg) O2 Sat 98 % Pain 6 General: Healthy appearing woman in no acute medical distress. KPS: 80 HEENT: Pupils equal , round and reactive to light. No conjunctival icterus or injection. EOMI. Oral, moist mucu s membranes. Lymphatic: No cervical, supraclavicular or axillary lymphadenopathy. Cardiovascular: Regul ar rate and rhythm, no murmur. Pulmonary: Breath sounds heard throughout, no adventitial sounds or increased work of art thing at rest. Abdomen: Soft, non-tender, no masses or organomegaly detected. Stoma in place , appearing liquid stool in bag. Extremities: Upper and lower extremities warm and well perfused with no upper or lower ext remity edema. Neurologic: Alert, oriented and appropriated in conversation. CN II-IX grossly intact. Moves all 4 extremities normally with normal gait. Psychiatric: Appropriate. Rectal: Gentle rectal exam performed with presence of sludge control operator. Rectal tone. Questionnaires: Are you having pain?YesWhere does it hurt most?skin on abdomen at opening of ostomy.Rate y our pain from 0-10: 0-10 scale with 0 = no pain and 10= worst eyxo1Kcuxxehu your pain (quality) i.e. aching, s harp, stabbing, etc.Pulling sensationWhat do you use for pain medication? Name and doseOxyc odoneWhat is your numerical pain rating after taking pain medication? 0-10 scale with 0 = no pain and 10= worst pain3 Labs: See EMR for complete list Diagnosis: 154.1 - Malignant neoplasm of rectum, Diagnosed 08/03/2014 (Active) ,. Impression/Plan: 49 year-old woman with a low lying rectal adenocarcinoma, Stage IIA, uT3 N0 cM0. She was treated with neoadjuvant chemoradiotherapy, 50.4 g in 28 fractions with concurrent Capecit abine, completed on 09/28/14. Subsequently underwent LAR with TME and diverting loop ileos karon demonstrating a complete response, ypT0N0. During is recovering well from surgery. There does not appear to be in the residual side effects from radiation. We discussed risks for vaginal stenosis following pelvic radiation . Vaginal dilator instructions were given. Dr. Frank indicates he is considering sta ndard adjuvant chemotherapy with FOLFOX. She has been cleared surgically to proceed with t his therapy. She plans to undergo reversal of the loop ileostomy after chemotherapy. Dr. Tolbert plans to perform flexible sigmoidoscopy in 3 months Following completion of the rapy surveillance should consist of apical follow-up every 3-6 months with CEA monitoring, CT chest and pelvis can be performed annually an annual colonoscopy. She was also encouraged to continue reaching out to friends and family for emotional suppo rt. She is disinterested in a support group. Follow up in my office in 3 months. Thank you for allowing me to participate in the care of Fang Stephenson. If you should have any questions regarding this evaluation, please do not hesitate to contact me. Frida Gasca M.D. Radiation Oncologist Department of Radiation Oncology [facility] This note was transcribed using [employer] speech recognition software. As a result, there ma y be unintended for medical and/or spelling errors. Every attempt is made to correct dicta tion. If there are any questions or errors please contact our office. Page 1 of 3 CSN: [id number] signed by Frida Grossman MD at 12/31/2014 4:44 PM PDTd ocumented in this encounter Plan of Treatment Not on filedocumented as of this encounter Visit Diagnoses + + | Diagnosis | + + | Rectal cancer (HCC) - Primary Malignant neoplasm of rectum | + + documented in this encounter"
--- OUTSIDE RECORDS SUMMARY | ~2020-02-23 | XMS | Encounter Summary ---
Demographics + + + | Address | [address] [address] [address] | | | [place] [address] | + + + | Home Phone | | + + + | Preferred Language | Unknown | + + + | Marital Status | Single | + + + | Synagogue Affiliation | [id number] | + + + | Race | Unknown | + + + | Ethnic Group | Unknown | + + + Author + + + | Author | [facility] | | | and [place] | + + + | Organization | [facility] | | | [...] Team Providers + +------+ + | Care Sequins Stringer Name | Role | Phone | + [...] Closed | | Medical | Diagnoses | Mary, Robbi Frank | | | | Oncology / | Rectal | Kear Matthews, | Wing | | | | Oncology | cancer (HCC) | PA-C 2230 | MD Casimiro | | | | | Procedures | [address] | [address] | | | | | [address] | [place] | [facility] | | | | | | [address] | [place], [place] | | | | | | [place], | [address] Phone: | | | | | | [place] | [phone] | | | | | | [address] | Fax: | | | | | | Phone: | [phone] | | | | | | [phone] | | | | | | | Fax: | | | | | | | [phone] | | +--------+--------+ + + + + Encounter Details +--------+ + + + + | Date | Type | Department | Care Team | Description | +--------+ + + + + | 04/14/ | Hospital | [facility] | Wing Frank | Rectal cancer (HCC) | | 2018 | Encounter | [facility] | MD Casimiro [address] | (Primary Dx) | | | | [facility] [address] | [facility] | | | | | [address] [place] | [place] [address] | | | | | [place] [address] | [phone] | | | | | [phone] | | | +--------+ + + + [...] + + + | Blood Pressure | 137/83 | 04/14/2018 2:26 PM | | | | | PDT | | + + + + + | Pulse | 65 | 04/14/2018 2:26 PM | | | | | PDT | | + + + + + | Temperature | 36.6 C (97.9 F) | 04/14/2018 2:26 PM | | | | | PDT | | + + + + + | Respiratory Rate | 16 | 04/14/2018 2:26 PM | | | | | PDT | | + + + + + | Oxygen Saturation | 99% | 04/14/2018 2:26 PM | | | | | PDT | | + + + + + | Inhaled Oxygen | - | - | | | Concentration | | | | + + + + + | Weight | 90.2 kg (198 lb 13.7 | 04/14/2018 2:26 PM | | | | oz) | PDT | | + + + + + | Height | - | - | | + + + + + | Body Mass Index | 33.09 | 01/30/2017 10:34 AM | | | [...] encounter Progress Notes Wing Frank MD - 04/14/2018 2:57 PM PDTFormatting of this note might be diff erent from the original. Hem-Onc Progress Note [facility] Pt. Name/Age/: Fang Stephenson 52 y.o. 1965 Med. Record Number: [id number] Date of admission: 04/14/2018 Assessment and plan: 1. 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 Ronaldo Hess, [facility] , Nov, 2014 with no histologically identifiable residual disease, Thus ypT0,N0 (0/7), M0 S/p 4 cycles post-surgical adjuvant CapOx chemotherapy: January-March, Counseling session today first reviewing the results of a CT scan of the chest abdomen and pelvis with images that I was able to personally view disclosing no signs of recurrent disea se with particular attention to the pelvic and the accompanying genitourinary structures. T he overall impression is that of continuing remission of rectal cancer. Discussion with regard to patient's episode of urge incontinence discussing the periodic na ture of this probably reflecting earlier interruption in sacral nerve plexus associated with sphincter control. We discussed some of the strategies to help mitigate this including mor e frequent voiding of bladder. We also discussed a second set of treatment approaches for chronic hemorrhoidal swelling. Patient is going to rotate a program of fiber to psyllium as an alternative source of bulk f orming laxative. At the same time we discussed the use of sitz baths as a means of controll ing acute inflammation although patient admits that it would be difficult for her to sit in a hot because of her arthritis. Other approaches including the use of Zita in's and anti-i nflammatory creams such as Anusol HC-1 discussed and patient received a prescription for thi s. We also discussed the use of Tucks pads or other cleansing agents as opposed to use of t oilet paper. Follow-up in the cancer center to continue on a biannual basis. Subjective: The patient chart and medications were reviewed in detail and the patient was seen and exam ined. Fang Stephenson is a 52 y.o. female returns today for follow-up and report concerning re staging evaluation and surveillance of her remission of rectal carcinoma. Patient has been mostly well in the time since a most recent visit earlier this year contin uing a follow-up monitoring of a remission of rectal cancer now approaching 4 years. Komal drew does however have ongoing symptoms referable to the pelvis including episodes of urge-like incontinence that occur on an occasional basis according to patient seemingly for no reason . Patient also experiences a peculiar discomfort with radiation from the pudendal region in to the anterior genital region again mostly on a momentary and an occasional basis. Her have long-standing problem referable to hemorrhoids. She's been using Citrucel but wit h no effect. She continues to experience periodic episodes of diarrhea. PSH: Reviewed, no changes to admission H&P. Past Medical History: Diagnosis Date Broken arm age 12 Broken leg age 4 Concussion 12/25 Diabetes mellitus (HCC) Per office of [facility] patient's PCP MRSA infection Review of Systems: Constitutional: States fatigue. Denies high fevers, shaking chills, anorexia, vomiting, w eight loss, or night sweats. Appetite without changes. Intermittent nausea. Ear, Nose, Mouth, Throat: Denies odynophagia, dysphagia, or tinnitus. Cardiovascular: Denies shortness of breath, dyspnea on exertion, chest pain, palpitations o r orthopnea. Respiratory: Denies cough, hemoptysis, or sputum production. Gastrointestinal: Denies abdominal pain, melena, or bright red blood per rectum. Lower abdo sherry pain, reported. Both constipation and diarrhea. Hemorids reported. Genitourinary: Denies hematuria or dysuria. Musculoskeletal: Denies [...] and irritation during chemotherapy Nitrofurantoin Rash Objectives: Temp: 36.6 C (97.9 F) BP: 137/83 Pulse: 65 Resp: 16 SpO2: 99 % on Min/Max Temp past 24 hours:Temp Av.6 C (97.9 F) Min: 36.6 C (97.9 F) Max: 3 6.6 C (97.9 F) No intake or output data in the 24 hours ending 04/14/18 1458 Wt. Admission: Weight: 90.2 kg (198 lb 13.7 oz) Wt. Current: Weight: 90.2 kg (198 lb 13 .7 oz) Physical Exam: Exam: General: The patient is alert and oriented. No acute distress. Psychiatric: Normal mood and affect. Diagnostic studies: Available data and images were reviewed personally. See reports. Significant results and findings are addressed here or in the Assessment and Plan. Recent Labs Lab 04/07/18 1520 WBC 5.3 HGB 12.9 HCT 37.8 PLT 196 Recent Labs Lab 04/07/18 1520 NA 139 K 4.2 CL 111* CO2 23* BUN 15 CREA 0.76 GLU 109 CALCIUM 9.1 BILITOT 0.4 AST 23 ALT 19 ALKPHOS 76 ALBUMIN 4.0 EXAM: CT CHEST ABDOMEN PELVIS W CONTRAST dated 04/07/2018 3:45 PM HISTORY:surveillance for recurrent rectal cancer Comparison: November 22, 2016 and February 07, 2016 CT chest abdomen and pelvis exams. TECHNIQUE: Imaging is performed from chest through the pubic symphysis with oral contrast and following the uneventful intravenous administration of 100 mL Omnipaque 350. DOSE: DLP 610.63 mGy-cm FINDINGS: CHEST: HEART AND AORTA: No aneurysmal dilatation of the thoracic aorta. No enlargement of the main pulmonary arteries. No visible filling defects in the pulmonary arteries. No cardiac chamber enlargement. No pericardial thickening. MEDIASTINUM: No mediastinal or hilar lymphadenopathy. No visible thyroid pathology. LUNGS:Stable scarring along the minor fissure stable micronodule in the right lower lobe (series 4, image 36). Stable micronodule in the right upper lobe (series 4, image 29). No pleural effusions. The airways are patent. No bronchial wall thickening or bronchiectasis. No airspace disease. CHEST WALL: No axillary or visible supraclavicular lymphadenopathy. ABDOMEN/PELVIS: LIVER: The liver is unremarkable in attenuation and enhancement. There are no focal liver lesions. GALLBLADDER: The gallbladder is surgically absent. The intrahepatic and extrahepatic biliary ducts are appropriate given the postsurgical state. SPLEEN: The spleen is unremarkable. There is no splenomegaly. There is a small splenule. PANCREAS: The pancreas is unremarkable. The pancreatic duct is not dilated. ADRENALS: No adrenal enlargement. No adrenal masses. KIDNEYS: Stable appearance to the atrophied right kidney. No focal lesions in the left kidney. No evidence of obstruction. BOWEL: Patent anastomosis in the upper abdomen. The gastrointestinal tract is otherwise unremarkable.. AORTA AND LYMPH NODES: There is no aneurysmal dilatation of the abdominal aorta. There is no pelvic or abdominal lymphadenopathy. BLADDER: The bladder is decompressed and not well evaluated. UTERUS AND ADNEXA:The uterus and adnexa are unremarkable. OTHER: There is no free fluid. There is no free air. BONES: There are no acute osseous abnormalities. There are no lytic or blastic bone lesions. IMPRESSION - No CT evidence for local regional recurrence or distant metastatic disease. Dictated and Signed by: Wing Monterroso MD Electronically signed: 04/07/2018 6:50 PM Electronically signed by: Wing Frank, 04/14/2018 14:58 [facility] TIME SPENT 25 MIN. > 50% AT BEDSIDE, WITH FAMILY/PATIENT IN CARE AND [place]ARGETE[place] ON UNIT AND CO ORDINATION OF CARE Portions of this chart may have been created with [employer] voice recognition software. Occasi onal wrong-word or sound-alike substitutions may have occurred due to the inherent rutherford itations of voice recognition software. Please read the chart carefully and recognize, using context, where these substitutions have occurred. Jen Rodriguez CMA - 04/14/2018 2:26 PM PDTREVIEW O F SYSTEMS Constitutional: States fatigue. Denies high fevers, shaking chills, anorexia, vomiting, w eight loss, or night sweats. Appetite without changes. Intermittent nausea. Ear, Nose, Mouth, Throat: Denies odynophagia, dysphagia, or tinnitus. Cardiovascular: Denies shortness of breath, dyspnea on exertion, chest pain, palpitations o r orthopnea. Respiratory: Denies cough, hemoptysis, or sputum production. Gastrointestinal: Denies abdominal pain, melena, or bright red blood per rectum. Lower abdo sherry pain, reported. Both constipation and diarrhea. Hemorids reported. Genitourinary: Denies hematuria or dysuria. Musculoskeletal: Denies joint pain or tenderness. Neurologic: Denies headache, visual changes, or numbness/tingling of the extremities. Endocrine: Denies peripheral edema or heat/cold intolerance. Hematologic: Denies spontaneous bruising or bleeding. Integumentary: Denies rash, wounds or other skin concerns. Pain: Denies pain. Note: Pt is here for a 6 month follow up. My chart: documented in this encounter Plan of Treatment Not on filedocumented as of this encounter Procedures + +--------+ + + + | Procedure Name | Priori | Date/Time | Associated Diagnosis | Comments | | | ty | | | | + +--------+ + + + | PATHOLOGY - EXTERNAL | | 11/26/2017 | | Results for this | | SCAN | | 12:00 AM | | procedure are in the | | | | PST | | results section. | + +--------+ + + + | DIAGNOSTIC REPORT - | | 11/26/2017 | | Results for this | | EXTERNAL SCAN | | 12:00 AM | | procedure are in the | | | | PST | | results section. | + +--------+ + + + documented in this encounter Results DIAGNOSTIC REPORT - EXTERNAL SCAN (11/26/2017 12:00 AM PST) + + + | Narrative | Performed At | + + + | Ordered by an | | | unspecified provider. | | + + + PATHOLOGY - EXTERNAL SCAN (11/26/2017 12:00 AM PST) + + + | Narrative | Performed At | + + + | Ordered by an | | | unspecified provider. | | + + + documented in this encounter Visit Diagnoses + + | Diagnosis | + + | Rectal cancer (HCC) - Primary Malignant neoplasm of rectum | + + documented in this encounter"
--- OUTSIDE RECORDS SUMMARY | ~2020-02-23 | XMS | Encounter Summary ---
Demographics + + + | Address | [address] [facility] [address] | | | [place] [address] | + + + | Home Phone | | + + + | Preferred Language | Unknown | + + + | Marital Status | Single | + + + | Anglican Affiliation | 1041 | + + + | Race | Unknown | + + + | Ethnic Group | Unknown | + + + Author + + + | Author | [facility] | | | and [place] | + + + | Organization | [facility] | | | and [...] Team Providers + +------+ + | Care Leading Firefighter Name | Role | Phone | + +------+ + | Kera Hernandez PA-C | PCP | | + +------+ + Reason for Referral Diagnostic/Screening (Urgent) +--------+--------+ + + + + | Status | Reason | Specialty | Diagnoses / | Referred By | Referred To | | | | | Procedures | Contact | Contact | +--------+--------+ + + + + | Closed | | Radiology | Diagnoses | | [address] | | | | | Rectal | Frank, | [address] | | | | | cancer (HCC) | Wing | [place], | | | | | Procedures | MD Casimiro | [place] [address] | | | | | CT Chest | [address] | Phone: | | | | | Abdomen | [place] | [phone] | | | | | Pelvis w | [place], [place] | Fax: | | | | | Contrast | [address] | [phone] | | | | | | Phone: | | | | | | | [phone] | | | | | | | Fax: | | | | | | | [phone] | | +--------+--------+ + + + + Reason for Visit + + + [...] Closed | | Medical | Diagnoses | Bourret, | Frank, | | | | Oncology / | Rectal | Kera Matthews, | Wing | | | | Oncology | cancer (HCC) | PA-C 0 | MD [place] | | | | | Procedures | NW | [address] | | | | | [place] OFFICE | [place] | [place] | | | | | OUTPATIENT | [address] | [place], [place] | | | | | [address] | [place], | [address] Phone: | | | | | MINUTES | [place] | [phone] | | | | | | [address] | Fax: | | | | | | Phone: | [phone] | | | | | | [phone] | | | | | | | Fax: | | | | | | | [phone] | | +--------+--------+ + + + + Encounter Details +--------+ + + + + | Date | Type | Department | Care Team | Description | +--------+ + + + + | 10/21/ | Hospital | [facility] | Wing Frank | Rectal cancer (HCC) | | 2019 | Encounter | [facility] | MD [place]im[place] [address] | (Primary Dx) | | | | [facility] [address] | [address] | | | | | [address] | [place] [address] | | | | | [place] [address] | [phone] | | | | | [phone] | | | +--------+ + + + [...] + + + | Blood Pressure | 123/78 | 10/21/2018 2:38 PM | | | | | PST | | + + + + + | Pulse | 79 | 10/21/2018 2:38 PM | | | | | PST | | + + + + + | Temperature | 36.3 C (97.4 F) | 10/21/2018 2:38 PM | | | | | PST | | + + + + + | Respiratory Rate | 16 | 10/21/2018 2:38 PM | | | | | PST | | + + + + + | Oxygen Saturation | 100% | 10/21/2018 2:38 PM | | | | | PST | | + + + + + | Inhaled Oxygen | - | - | | | Concentration | | | | + + + + + | Weight | 91.1 kg (200 lb 13.4 | 10/21/2018 2:38 PM | | | | oz) | PST | | + + + + + | Height | - | - | | + + + + + | Body Mass Index | 33.42 | 01/30/2017 10:34 AM | | | [...] | lisinopril | | | 0 | 20 | | | (PRINIVIL, ZESTRIL) | | [...] encounter Progress Notes Jen Doherty CMA - 10/21/2018 2:42 PM PSTREVIEW OF SYSTEMS Constitutional: Denies fatigue. [...] or bright red bloo d per rectum. Bowel issues continue, more constipation. Genitourinary: Denies hematuria or dysuria. Musculoskeletal: Denies joint pain or tenderness. Neurologic: Denies headache, visual changes, or numbness/tingling of the extremities. Endocrine: Denies peripheral edema or heat/cold intolerance. Hematologic: Denies spontaneous bruising or bleeding. Integumentary: Denies rash, wounds or other skin concerns. Pain: Denies pain. Note: Pt is here for 6 month follow up My chart: Wing Perez MD - 10/21/2018 2:41 PM PSTFormatting of this note might be different from the origi nal. Hem-Onc Progress Note [facility] Pt. Name/Age/: Fang Stephenson 53 y.o. 1965 Med. Record Number: [id number] Date of admission: 10/21/2018 Assessment and plan: 1. 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 Ronaldo Hess, [facility] , Nov, 2014 with no histologically identifiable residual disease, Thus ypT0,N0 (0/7), M0 S/p 4 cycles post-surgical adjuvant CapOx chemotherapy: January-March, Discussion today first acknowledging potential cause and effect relationship between audra drew's earlier adjuvant oxaliplatin-based chemotherapy and presents discomfort on the soles of the feet. Employer has been accommodating in terms of allowing patient to sit during her sh ifts which would otherwise require her to be standing. Discussion today concerning follow-up surveillance monitoring with plans for recheck CT sca n in approximately 6 months or approximately 12 months from most recent study. We described how at the five-year ronaldo generally patients at very low risk for recurrent disease and jeanette s follow-up will be through patient's primary care physician. Acknowledgment today of anxiety prompted by development of rectal bleeding recalling audra drew's initial presenting manifestations. We were reassured at least in part from reports of marco a olivera otherwise negative sigmoidoscopy from last month. Recommendation to patient to incre ase Metamucil to twice daily as a means of helping lower internal colonic pressure. Subjective: The patient chart and medications were reviewed in detail and the patient was seen and exam ined. Fang Stephenson is a 53 y.o. female returns today for follow-up and front desk monitor ing of a remission of rectal carcinoma. Patient now out 4 years from the time of completion of a program of chemoradiotherapy leadi ng to a complete remission with subsequent low anterior resection demonstrating no histologi nabeel identifiable residual cancer. Patient went on to receive additional cycles of postsur gical adjuvant Cape ox chemotherapy through the following spring. Patient may be experienci ng late side effects from that treatment and today describes a tenderness in the soles of he r feet which made it difficult for her to sleep. Patient has been begun on neuropathic pain medication with partial improvement. In uses experience symptoms of rectal bleeding. She describes that on occasion this can be copious. An earlier colonoscopy from winter 2017 had disclosed only benign changes. A mos t recent sigmoidoscopy is said to have shown continued internal hemorrhoids. Patient has be en using Metamucil on a once a day basis but admits that she still has a tendency for consti pation. PSH: Reviewed, no changes to admission H&P. Past Medical History: Diagnosis Date Broken arm age 12 Broken leg age 4 Concussion 12/25 Diabetes mellitus (HCC) Per office of Nicky patient's PCP MRSA infection Review of Systems: Constitutional: Denies fatigue. Denies [...] or bright red bloo d per rectum. Bowel issues continue, more constipation. Genitourinary: Denies hematuria or dysuria. Musculoskeletal: Denies [...] 1,000 Units by Does not apply route. HYDROcodone-acetaminophen (NORCO) 5-325 mg per tablet Take 1 tablet by mouth every 6 ho urs as needed for Pain. hydrocortisone (ANUSOL-HC) 2.5% rectal cream Place rectally 2 times daily. 30 g 2 Loperamide HCl (IMODIUM PO) Take by mouth. metFORMIN (GLUCOPHAGE) 500 mg tablet Take 500 mg by mouth 2 times daily (with breakfast & dinner). OMEGA 3 1000 MG CAPS Take by mouth. psyllium (KONSYL) 28.3 % PACK Take 1 packet by mouth Daily. 30 each 11 No current facility-administered medications on file prior to encounter. Objectives: Temp: 36.3 C (97.4 F) BP: 123/78 Pulse: 79 Resp: 16 SpO2: 100 % on Min/Max Temp past 24 hours:Temp Av.3 C (97.4 F) Min: 36.3 C (97.4 F) Max: 3 6.3 C (97.4 F) No intake or output data in the 24 hours ending 10/21/18 1441 Wt. Admission: Weight: 91.1 kg (200 lb 13.4 oz) Wt. Current: Weight: 91.1 kg (200 lb 13 .4 oz) Physical Exam: Exam: General: The patient is alert and oriented. No acute distress. HEENT: PERRL, Oral mucosa intact. Neck is supple. Cardiovascular: Regular rate and rhythm, no murmur. Respiratory: Clear to auscultation and percussion. Breast: Not examined Abdomen: Soft, nontender, no hepatospenomegaly. No palpable [...] the Assessment and Plan. Recent Labs Lab 10/21/18 1408 WBC 5.1 HGB 13.0 HCT 38.5 PLT 231 Electronically signed by: Wing Frank, 10/21/2018 14:41 [facility] TIME SPENT 20 MIN. > 50% AT BEDSIDE, WITH FAMILY/PATIENT IN CARE AND MASONRY CONTRACTOR ON UNIT AND CO ORDINATION OF CARE Portions of this chart may have been created with conXt voice recognition software. Occasi onal wrong-word or sound-alike substitutions may have occurred due to the inherent rutherford itations of voice recognition software. Please read the chart carefully and recognize, using context, where these substitutions have occurred. documented in this encounter Plan of Treatment Not on filedocumented as of this encounter Procedures + +--------+ + + + | Procedure Name | Priori | Date/Time | Associated Diagnosis | Comments | | | ty | | | | + +--------+ + + + | IRON AND TRANSFERRIN | STAT | 10/21/2018 | Rectal cancer | Results for this | | | | 2:08 PM | (HCC) | procedure are in the | | | | PST | | results section. | + +--------+ + + + | CBC WITH | STAT | 10/21/2018 | Rectal cancer | Results for this | | DIFFERENTIAL | | 2:08 PM | (HCC) | procedure are in the | | | | PST | | results section. | + +--------+ + + + | FERRITIN | STAT | 10/21/2018 | Rectal cancer | Results for this | | | | 2:08 PM | (HCC) | procedure are in the | | | | PST | | results section. | + +--------+ + + + | CEA | STAT | 10/21/2018 | Rectal cancer | Results for this | | | | 2:08 PM | (HCC) | procedure are in the | | | | PST | | results section. | + +--------+ + + + | COMPREHENSIVE | STAT | 10/21/2018 | Rectal cancer | Results for this | | METABOLIC PANEL | | 2:08 PM | (HCC) | procedure are in the | | | | PST | | results section. | + +--------+ + + + documented in this encounter Results CT Chest Abdomen Pelvis w Contrast (01/29/2019 11:46 AM PDT) + + | Specimen | + + | | + + + + + | Narrative | Performed At | + + + | TECHNIQUE: After administration of 90 mL Omnipaque 350 intravenously | [facility] | | and negative oral contrast, axial CT imaging was obtained through | | | the chest, abdomen, and pelvis with coronal and sagittal reformats. | | | CLINICAL INFORMATION: surveillance of remision of rectal cancer | | | COMPARISON: CT dated 04/07/2018. FINDINGS: BONES: No | | | osteoblastic or osteolytic lesion. No acute osseous abnormality. | | | CHEST: Chest Wall: No significant irregular or axillary | | | lymphadenopathy. Mediastinum and kwame: No lymphadenopathy. Heart | | | and pericardium: Heart size is normal. No pericardial effusion. | | | Vessels: Normal caliber of the thoracic aorta. Lungs: Stable 3 mm | | | right lower lobe subpleural nodule, series 4 image 35. No new | | | nodule. No airspace consolidation. Large airways: Unremarkable. | | | Pleura: No pleural effusion or pneumothorax. ABDOMEN/PELVIS: | | | Abdominal wall: No inguinal lymphadenopathy. Postoperative changes | | | at the anterior abdominal wall. Liver: No soft tissue mass. | | | Gallbladder: Surgically absent. Pancreas: No mass or ductal | | | dilatation. Spleen: Unremarkable. Adrenals: No nodule. Kidneys: | | | Stable atrophy of the right kidney. No nephrolithiasis or | | | hydronephrosis. Unchanged heterogeneous appearance of the superior | | | aspect of the right kidney without distinct mass lesion, probable | | | scarring. Ureters: No hydroureter. Urinary Bladder: Unremarkable. | | | Reproductive organs: Unremarkable appearance of the uterus. No | | | adnexal mass. Bowel: Anastomotic changes at the right upper | | | quadrant. No evidence of right abdominal mass lesion. No evidence | | | of bowel obstruction. Third portion duodenum diverticulum noted. | | | Peritoneum/retroperitoneum: No ascites, free air, or lymphadenopathy. | | | Vessels: Normal caliber of the aorta. IMPRESSION - No | | | evidence of local recurrent or distant metastasis. Stable | | | incidental findings as above. Dictated and Signed by: Han | | | MD Jason Electronically signed: 01/30/2019 6:03 PM | | + + + + + | Procedure Note | + + | Gianni, Rad Results In - 01/30/2019 6:06 PM PDT TECHNIQUE: After administration of 90 | | mL Omnipaque 350 intravenously andnegative oral contrast, axial CT imaging was obtained | | through the chest,abdomen, and pelvis with coronal and sagittal reformats.CLINICAL | | INFORMATION: surveillance of remision of rectal cancerCOMPARISON: CT dated | | 04/07/2018.FINDINGS:BONES: No osteoblastic or osteolytic lesion. No acute osseous | | abnormality.CHEST:Chest Wall: No significant irregular or axillary | | lymphadenopathy.Mediastinum and kwame: No lymphadenopathy.Heart and pericardium: Heart | | size is normal. No pericardial effusion. Vessels: Normal caliber of the thoracic | | aorta.Lungs: Stable 3 mm right lower lobe subpleural nodule, series 4 image 35. Nonew | | nodule. No airspace consolidation.Large airways: Unremarkable.Pleura: No pleural | | effusion or pneumothorax. ABDOMEN/PELVIS:Abdominal wall: No inguinal lymphadenopathy. | | Postoperative changes at theanterior abdominal wall.Liver: No soft tissue | | mass.Gallbladder: Surgically absent.Pancreas: No mass or ductal dilatation.Spleen: | | Unremarkable.Adrenals: No nodule.Kidneys: Stable atrophy of the right kidney. No | | nephrolithiasis orhydronephrosis. Unchanged heterogeneous appearance of the superior | | aspect ofthe right kidney without distinct mass lesion, probable scarring.Ureters: No | | hydroureter.Urinary Bladder: Unremarkable.Reproductive organs: Unremarkable appearance | | of the uterus. No adnexal mass.Bowel: Anastomotic changes at the right upper quadrant. | | No evidence of rightabdominal mass lesion. No evidence of bowel obstruction. Third | | portionduodenum diverticulum noted.Peritoneum/retroperitoneum: No ascites, free air, or | | lymphadenopathy.Vessels: Normal caliber of the aorta.IMPRESSION - No evidence of local | | recurrent or distant metastasis.Stable incidental findings as above.Dictated and Signed | | by: Han Gomez MD Electronically signed: 01/30/2019 6:03 PM | | | | | |ABDOMEN/PELVIS: | |Abdominal wall: No inguinal lymphadenopathy. Postoperative changes at the | |anterior abdominal wall. | | | |Liver: No soft tissue mass. | |Gallbladder: Surgically absent. | |Pancreas: No mass or ductal dilatation. | |Spleen: Unremarkable. | | | |Adrenals: No nodule. | |Kidneys: Stable atrophy of the right kidney. No nephrolithiasis or | |hydronephrosis. Unchanged heterogeneous appearance of the superior aspect of | |the right kidney without distinct mass lesion, probable scarring. | |Ureters: No hydroureter. | |Urinary Bladder: Unremarkable. | |Reproductive organs: Unremarkable appearance of the uterus. No adnexal mass. | | | |Bowel: Anastomotic changes at the right upper quadrant. No evidence of right | |abdominal mass lesion. No evidence of bowel obstruction. Third portion | |duodenum diverticulum noted. | |Peritoneum/retroperitoneum: No ascites, free air, or lymphadenopathy. | |Vessels: Normal caliber of the aorta. | | | | | |IMPRESSION - | |No evidence of local recurrent or distant metastasis. | | | |Stable incidental findings as above. | | | |Dictated and Signed by: Han Gomez MD | | Electronically signed: 01/30/2019 6:03 PM | + + + +---------+ + + | Performing | Address | City/State/Zipcode | Phone Number | | Organization | | | | + +---------+ + + | [facility] | | | | + +---------+ + + Comprehensive Metabolic Panel (10/21/2018 2:08 PM PST) + + + + + [...] + + + + | Glucose | 130 (H) | 70 - 109 mg/dL | [facility] | | | | | | [facility] | | | | | | [facility] | | | | | [facility] - | | | | | | LABORATORY | | + + + + + + | BUN | 14 | 7 - 18 mg/dL | [facility] | | | | | | [facility] | | | | | | [facility] | | | | | | C[facility] - | | | | | | LABORATORY | | + + + + + + | Creatinine | 0.71 | 0.60 - 1.30 | [facility] | | | | | mg/dL | [facility] | | | | | | MEDICAL | | | | | | CENTER - | | | | | | LABORATORY | | + + + + + + | eGFR if not | >60Comment: GLOMERULAR | >=60 | [facility] | | | | FILTRATION | mL/min/1.73m2 | [facility] | | | [place] | RATE,ESTIMATED | | MEDICAL | | | | mL/min/1.19x0Obkl than | | CENTER - | | [...] + + + + | Calcium | 9.4 | 8.3 - 10.5 | [facility] | | | | | mg/dL | [facility] | | | | | | MEDICAL | | | | | | CENTER - | | | | | | LABORATORY | | + + + + + + | Albumin | 4.2 | 3.2 - 5.0 g/dL | [facility] | | | | | | [facility] [...] + + + + | ALT | 22Comment: This is an | 6 - 45 [...] + + + + | Alkaline | 80Comment: This is an | 40 - 110 [...] + + + + | Globulin | 3.1 | 2.1 - 3.8 g/dL | [facility] [...] [address] | [place] | [phone] | | [facility] | | [address] | | | - LABORATORY | | | | + + + + + CEA (10/21/2018 2:08 PM PST) + +-------+ + + + [...] [address] | [place] | [phone] | | [facility] | | [address] | | | - LABORATORY | | | | + + + + + Iron and Transferrin (10/21/2018 2:08 PM PST) + + + + + + | Component | Value | Ref Range | Performed | Pathologist | | | | | At | Signature | + + + + + + | Iron | 57 | 40 - 150 ug/dL | [facility] | | | | | | [facility] | | | | | | MEDICAL | | | | | | CENTER - | | | | | | LABORATORY | | + + + + + + | TRANSFERRIN | 249.0 | 240.0 - 480.0 | [facility] | | | | | mg/dL | [facility] | | | | | | MEDICAL | | | | | | CENTER - | | | | | | LABORATORY | | + + + + + + | TIBC | 349 | 235 - 425 ug/dL | [facility] | | | | | | [facility] | | | | | | MEDICAL | | | | | | CENTER - | | | | | | LABORATORY | | + + + + + + | % | 16.4 (L) | 20.0 - 55.0 % | [...] + | [facility] | [address] | [place] | [phone] | | [facility] | | [address] | | | - LABORATORY | | | | + + + + + Ferritin (10/21/2018 2:08 PM PST) + +-------+ + + + | Component | Value | Ref Range | Performed | Pathologist | | | | | At | Signature | + +-------+ + + + | FERRITIN | 30 | 11 - 307 ng/mL | [facility] [...] | + + + + + | [facility] | [address] | [place], [place] | [phone] | | [facility] | | [address] | | | - LABORATORY | | | | + + + + + CBC with Differential (10/21/2018 2:08 PM PST) + +-------+ + + + | Component | Value | Ref Range | Performed | Pathologist | | | | | At | Signature | + +-------+ + + + | WBC | 5.1 | 4.0 - 11.0 K/uL | [facility] | | | | | | [facility] | | [facility] | | [facility] | | | | | | CENTER - | | | | | | LABORATORY | | + +-------+ + + + | RBC | 4.57 | 3.70 - 5.20 | [facility] | [...] +-------+ + + + | Hematocrit | 38.5 | 34.0 - 47.0 % | [facility] | | | | | | [facility] | | | | | | [facility]ICAL | | | | | | CENTER - | | | | | | LABORATORY | | + +-------+ + + + | MCV | 84.2 | 83.0 - 101.0 fL | [facility] | | | | | | [facility] | | | | | | [facility]ICAL | | | | | | CENTER - | | | | | | LABORATORY | | + +-------+ + + + | MCH | 28.4 | 28.0 - 35.0 pg | [facility] | | | | | | [facility] | | | | | | MEDICAL | | | | | | CENTER - | | | | | | LABORATORY | | + +-------+ + + + | MCHC | 33.8 | 32.0 - 36.0 | [facility] | | | | | g/dL | [facility] | | | | | | MEDICAL | | | | | | CENTER - | | | | | | LABORATORY | | + +-------+ + + + | RDW-CV | 12.9 | <15.0 % | [facility] | | | | | | [facility] | | | | | | MEDICAL | | | | | | CENTER - | | | | | | LABORATORY | | + +-------+ + + + | RDW-SD | 39.5 | 35.1 - 46.3 fL | [facility] | | | | | | [facility] | | | | | | MEDICAL | | | | | | CENTER - | | | | | | LABORATORY | | + +-------+ + + + | Platelet | 231 | 140 - 440 K/uL | [facility] | | | Count | | | [facility] | | | | | | MEDICAL | | | | | | CENTER - | | | | | | LABORATORY | | + +-------+ + + + | MPV | 9.6 | 6.5 - 12.4 fL | [facility] [...] +-------+ + + + | % | 28.1 | 20.0 - 45.0 % | [facility] | | | Lymphocytes | | | [facility] | | | | | | MEDICAL | | | | | | CENTER - | | | | | | LABORATORY | | + +-------+ + + + | % Monocytes | 8.1 | 4.0 - 12.0 % | [facility] [...] + + + | % Immature | 0.2 | 0.0 - 0.4 % | [facility] | | | Granulocyte | | | [facility] | | | s | | | MEDICAL | | | | | | CENTER - | | | | | | LABORATORY | | + +-------+ + + + | Absolute | 3.12 | 1.80 - 8.50 | [facility] | | | Neutrophils | | K/uL | [facility] | | | | | | MEDICAL | | | | | | CENTER - | | | | | | LABORATORY | | + +-------+ + + + | Absolute | 1.43 | 0.60 - 3.20 | [facility] | | | Lymphocytes | | K/uL | [facility] | | | | | | [facility]ICAL | | | | | | CENTER - | | | | | | LABORATORY | | + +-------+ + + + | Absolute | 0.41 | 0.00 - 1.00 | [facility] | | | Monocytes | | K/uL | [facility] | | | | | | MEDICAL | | | | | | CENTER - | | | | | | LABORATORY | | + +-------+ + + + | Absolute | 0.09 | 0.00 - 0.40 | [facility] | | | Eosinophils | | K/uL | [facility] | | | | | | MEDICAL | | | | | | CENTER - | | | | | | LABORATORY | | + +-------+ + + + | Absolute | 0.02 | 0.00 - 0.10 | [facility] | | | Basophils | | K/uL | [facility] | | | | | | MEDICAL | | | | | | CENTER - | | | | | | LABORATORY | | + +-------+ + + + | Absolute | 0.01 | 0.00 - 0.03 | [facility] | | | Immature | | K/uL | [facility] | | | Granulocyte | | | MEDICAL | | | s | | | CENTER - | | | | | | LABORATORY | | + +-------+ + + + | % nRBC | 0 | 0 - 2 per 100 | [facility] | | | | | WBC's | [facility] | | | | | | MEDICAL | | | | | | CENTER - | | | | | | LABORATORY | | + +-------+ + + + | Absolute | 0.00 | 0.00 - 0.01 | [facility] | | | nRBC | | K/uL | [facility] | [...] ST. | [address] | [place] | [phone] | | [facility] | | [address] | | | - LABORATORY | | | | + + + + + documented in this encounter Visit Diagnoses + + | Diagnosis | + + | Rectal cancer (HCC) - Primary Malignant neoplasm of rectum | + + documented in this encounter"
--- OUTSIDE RECORDS SUMMARY | ~2020-02-23 | XMS | Encounter Summary ---
Demographics + + + | Address | [address] [address] | | | [place] [address] | + + + | Home Phone | | + + + | Preferred Language | Unknown | + + + | Marital Status | Single | + + + | Confucianism Affiliation | [id number] | + + + [...] Team Providers + +------+ + | [employer] Name | Role | Phone | + [...] [place] | | | | | [address] [place] | [place] [address] | | | | | [place] [address] | [phone] | | | | | [phone] | | | +--------+ + + + [...]
--- OUTSIDE RECORDS SUMMARY | ~2020-02-23 | XMS | Encounter Summary ---
Demographics + + + | Address | [address] [facility] | | | [place] [address] | + + + | Home Phone [...] Team Providers + +------+ + | Care Pipe Insulator Name | Role | Phone | + [...] Closed | | Medical | Diagnoses | [facility] | Frank, | | | | Oncology / | Malignant | Medical | Wing | | | | Oncology | neoplasm of | Oncology | MD Casimiro | | | | | rectum (HCC) | Clinic [address] | [address] | | | | | Malignant | [address] | [place] | | | | | neoplasm of | [place], | [place], [place] | | | | | rectum (HCC) | [place] | [address] Phone: | | | | | Procedures | [id number] | [phone] | | | | | [place] OFFICE | Phone: | Fax: | | | | | OUTPATIENT | [phone] | [phone] | | | | | VISIT 25 | Fax: | | | | | | MINUTES | [phone] | | | | | | [address] | | | +--------+--------+ + + + + Encounter Details +--------+ + + + + | Date | Type | Department | Care Team | Description | +--------+ + + + + | 08/25/ | Hospital | [facility] | Wing Frank | Rectal cancer (HCC) | | 2019 | Encounter | [facility] | MD Casimiro [address] | (Primary Dx); | | | | [facility] CLIN[facility] [address] | [address] | Attention to | | | | [address] [place] | [place] [address] | ileostomy (HCC); | | | | [place] [address] | [phone] | Ileostomy status | | | | [phone] | | (HCC); Malignant | | | | | | neoplasm of rectum | | | | | | (HCC); Obesity with | | | | | | body mass index 30 | | | | | | or greater | +--------+ + + + + Social [...] + + + | Blood Pressure | 119/76 | 08/25/2019 2:27 PM | | | | | PST | | + + + + + | Pulse | 82 | 08/25/2019 2:27 PM | | | | | PST | | + + + + + | Temperature | 36.3 C (97.3 F) | 08/25/2019 2:27 PM | | | | | PST | | + + + + + | Respiratory Rate | 16 | 08/25/2019 2:27 PM | | | | | PST | | + + + + + | Oxygen Saturation | 98% | 08/25/2019 2:27 PM | | | | | PST | | + + + + + | Inhaled Oxygen | - | - | | | Concentration | | | | + + + + + | Weight | 93.9 kg (207 lb 0.2 | 08/25/2019 2:27 PM | | | | oz) | PST | | + + + + + | Height | - | - | | + + + + + | Body Mass Index | 35.53 | 12/03/2018 2:57 PM | | | | | PST [...] + + + +---------+ + + | cyanocobalamin | Vitamin B12 | | 0 | | | | (VITAMIN B-12) 100 | | | | | | | MCG tablet | | | [...] | nortriptyline | | | 0 | 12/20/20 | | | (PAMELOR) 10 MG | [...] encounter Progress Notes Jen Doherty CMA - 08/25/2019 3:00 PM PSTREVIEW OF SYSTEMS Constitutional: MIld fatigue. Denies high fevers, shaking chills, anorexia, vomiting, weigh t loss, or night sweats. Appetite without changes. Intermittent nausea reported, onset a fe w weeks ago, this happens 3-4x a week. States she did have the flu or cold prior. Ear, Nose, Mouth, Throat: Denies odynophagia, dysphagia, or tinnitus. Cardiovascular: Denies shortness of breath, dyspnea on exertion, chest pain, palpitations o r orthopnea. Respiratory: Denies cough, hemoptysis, or sputum production. Occasional chest pains, under the left breast, described as a sharp pain. Lump left axilla found a few months ago ago. Gastrointestinal: Denies abdominal pain, constipation, diarrhea, melena, or bright red bloo d per rectum. Occasional cramping reported. At times feels constipated. At times she bleeds from being constipated. Genitourinary: Denies hematuria or dysuria. Musculoskeletal: Denies joint pain or tenderness. Neurologic: Denies headache, visual changes, or numbness/tingling of the extremities. Endocrine: Denies peripheral edema or heat/cold intolerance. Hematologic: Denies spontaneous bruising or bleeding. Integumentary: Denies rash, wounds or other skin concerns. Pain: Denies pain. Note: Here for follow up and labs My chart: Active Wing Perez MD - 08/25/2019 3:00 PM PSTFormatting of this note might be different from the origi nal. Hem-Onc Progress Note [facility] Pt. Name/Age/: Fang Stephenson 54 y.o. 1965 Med. Record Number: [id number] Date of admission: 08/25/2019 Assessment and plan: 1. 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 Ronaldo Hess, [facility] , Nov, 2014 with no histologically identifiable residual disease, Thus ypT0,N0 (0/7), M0 S/p 4 cycles post-surgical adjuvant CapOx chemotherapy: January-March, A counseling session today with patient first offering congratulations on arriving at five- year ronaldo following initial diagnosis of rectal carcinoma. We indicated that follow-up now can be through patient's primary care physician and does not require additional surveillance imaging. Discussion however with regard to surveillance and screening for breast cancer taking note of patient's decision not to return to [facility]. We are going to go ahead and schedule s creening examination here any time of the next 3 months. First aid for patient's left axillary sweat gland to include hot compresses 15 minutes up t o twice daily. This should be continued for at least one week Subjective: The patient chart and medications were reviewed in detail and the patient was seen and exam ined. Fang Stephenson is a 54 y.o. female who returns today for final follow-up following van ier treatment of primary rectal carcinoma. Patient overall doing well from the point of view of the gastrointestinal tract following e arlier multi modality therapy beginning in the yolis of 2013. Patient had achieved a complete response to induction chemoradiotherapy, followed by a successful proctoscopy colec karon and eventual re-anastomosis followed again by postsurgical adjuvant oxaliplatin-based c hemotherapy. In the 5 years since time of that treatment patient remaining well and has res umed normal appetite and physical activities. 1 interim history is the development of a lump under her left arm. This is the site of ear lier excision of a cyst in the left axilla some years previously. The area has a slight dis comfort to this. It has not been draining. Patient does go for regular mammography includi ng a screening study followed by a diagnostic study earlier this winter with benign findings only. PSH: Reviewed, no changes to admission H&P. Past Medical History: Diagnosis Date Broken arm age 12 Broken leg age 4 Cancer (HCC) Chest pain Concussion 12/25 Diabetes mellitus (HCC) Per office of Nicky, patient's PCP Diabetes mellitus, type 2 (HCC) HTN (hypertension) 11/09/2014 MRSA infection Past Surgical History: Procedure Laterality Date CHOLECYSTECTOMY cyst 05/27 removed from left axilla HERNIA REPAIR OTHER SURGICAL HISTORY HARDWARE PRESENT - hammer toe UMBILICAL HERNIA REPAIR 09/23/15 Review of Systems: Constitutional: MIld fatigue. Denies high fevers, shaking chills, anorexia, vomiting, weigh t loss, or night sweats. Appetite without changes. Intermittent nausea reported, onset a fe w weeks ago, this happens 3-4x a week. States she did have the flu or cold prior. Ear, Nose, Mouth, Throat: Denies odynophagia, dysphagia, or tinnitus. Cardiovascular: Denies shortness of breath, dyspnea on exertion, chest pain, palpitations o r orthopnea. Respiratory: Denies cough, hemoptysis, or sputum production. Occasional chest pains, under the left breast, described as a sharp pain. Lump left axilla found a few months ago ago. Gastrointestinal: Denies abdominal pain, constipation, diarrhea, melena, or bright red bloo d per rectum. Occasional cramping reported. At times feels constipated. At times she bleeds from being constipated. Genitourinary: Denies hematuria or dysuria. Musculoskeletal: Denies joint pain or tenderness. Neurologic: Denies headache, visual changes, or numbness/tingling of the extremities. Endocrine: Denies peripheral edema or heat/cold intolerance. Hematologic: Denies spontaneous bruising or bleeding. Integumentary: Denies rash, wounds or other skin concerns. Pain: Denies pain. Review of systems as above otherwise negative Scheduled Medications: Continuous Infusions: PRN Meds:. Allergy: Allergies Allergen Reactions Nsaids Other (See Comments) Does not remember Gabapentin Other (See Comments) Suicidal thoughts Latex Redness and irritation during chemotherapy Nitrofurantoin Rash Current Outpatient Medications on File Prior to Encounter Medication Sig Dispense Refill ALPRAZolam (XANAX) 0.5 mg tablet aspirin 81 mg chewable tablet Take 81 mg by mouth Daily. CHOLECALCIFEROL 1,000 Units by Does not apply route. cyanocobalamin (VITAMIN B-12) 100 MCG tablet Vitamin B12 DULoxetine (CYMBALTA) [address] capsule Take 30 mg by mouth Daily. HYDROcodone-acetaminophen (NORCO) 5-325 mg per tablet Take 1 tablet by mouth every 6 ho urs as needed for Pain. hydrocortisone (ANUSOL-HC) 2.5% rectal cream Place rectally 2 times daily. (Patient no t taking: Reported on 08/25/2019) 30 g 2 lisinopril (PRINIVIL, ZESTRIL) 10 mg tablet Take 10 mg by mouth. lisinopril (PRINIVIL, ZESTRIL) 5 mg tablet loperamide (IMODIUM) 2 mg capsule Loperamide HCl (IMODIUM PO) Take by mouth. metFORMIN (GLUCOPHAGE) 500 mg tablet Take 500 mg by mouth 2 times daily (with breakfast & dinner). nortriptyline (PAMELOR) 10 MG capsule OMEGA 3 1000 MG CAPS Take by mouth. oxybutynin (DITROPAN) 5 mg tablet psyllium (KONSYL) 28.3 % PACK Take 1 packet by mouth Daily. 30 each 11 SM ASPIRIN ADULT LOW STRENGTH 81 MG EC tablet TRUE METRIX BLOOD GLUCOSE TEST strip No current facility-administered medications on file prior to encounter. Objectives: Temp: 36.3 C (97.3 F) BP: 119/76 Pulse: 82 Resp: 16 SpO2: 98 % on Min/Max Temp past 24 hours:Temp Av.3 C (97.3 F) Min: 36.3 C (97.3 F) Max: 3 6.3 C (97.3 F) No intake or output data in the 24 hours ending 08/25/19 1428 Wt. Admission: Weight: 93.9 kg (207 lb 0.2 oz) Wt. Current: Weight: 93.9 kg (207 lb 0.2 oz) Physical Exam: Exam: General: The patient is alert and oriented. No acute distress. HEENT: PERRL, Oral mucosa intact. Neck is supple. Cardiovascular: Regular rate and rhythm, no murmur. Respiratory: Clear to auscultation and percussion. Breast: Right and left breasts normal to inspection and palpation. Area of induration and slight tenderness at the apex of the left axilla consistent with infected sweat gland Abdomen: Soft, nontender, no hepatospenomegaly. No palpable [...] the Assessment and Plan. Recent Labs Lab 08/25/19 1343 WBC 5.8 HGB 13.8 HCT 40.8 PLT 239 Electronically signed by: Wing Frank MD, 08/25/2019 2:28 PM [facility] TIME SPENT 25 MIN. > 50% AT BEDSIDE, WITH FAMILY/PATIENT IN CARE AND HOSPITALITY HOUSE SUPERVISOR ON UNIT AND CO ORDINATION OF CARE Portions of this chart may have been created with [employer] voice recognition software. Occasi onal wrong-word or sound-alike substitutions may have occurred due to the inherent rutherford itations of voice recognition software. Please read the chart carefully and recognize, using context, where these substitutions have occurred. documented in this encounter Plan of Treatment + +---------+--------+ + + | Name | Type | Priori | Associated Diagnoses | Order Schedule | | | | ty | | | + +---------+--------+ + + | TERRY Tomosynthesis | Imaging | Routin | Rectal cancer | Expected: | | Screening Bilateral | | e | (HCC) | 10/25/2019, Expires: | | | | | | 10/25/2020 | + +---------+--------+ + + documented as of this encounter Procedures + +--------+ + + + | Procedure Name | Priori | Date/Time | Associated Diagnosis | Comments | | | ty | | | | + +--------+ + + + | IRON AND TRANSFERRIN | STAT | 08/25/2019 | Rectal cancer | Results for this | | | | 1:43 PM | ([facility]) Attention to | procedure are in the | | | | PST | ileostomy ([facility]) | results section. | | | | | Ileostomy status | | | | | | ([facility]) Malignant | | | | | | neoplasm of rectum | | | | | | ([facility]) | | + +--------+ + + + | CBC WITH | STAT | 08/25/2019 | Rectal cancer | Results for this | | DIFFERENTIAL | | 1:43 PM | ([facility]) Attention to | procedure are in the | | | | PST | ileostomy (HCC) | results section. | | | | | Ileostomy status | | | | | | (HCC) Malignant | | | | | | neoplasm of rectum | | | | | | (HCC) | | + +--------+ + + + | FERRITIN | STAT | 08/25/2019 | Rectal cancer | Results for this | | | | 1:43 PM | ([facility]) Attention to | procedure are in the | | | | PST | ileostomy (HCC) | results section. | | | | | Ileostomy status | | | | | | (HCC) Malignant | | | | | | neoplasm of rectum | | | | | | (HCC) | | + +--------+ + + + | CEA | Routin | 08/25/2019 | Rectal cancer | Results for this | | | e | 1:43 PM | ([facility]) Attention to | procedure are in the | | | | PST | ileostomy (HCC) | results section. | | | | | Ileostomy status | | | | | | (HCC) Malignant | | | | | | neoplasm of rectum | | | | | | (HCC) | | + +--------+ + + + | COMPREHENSIVE | STAT | 08/25/2019 | Rectal cancer | Results for this | | METABOLIC PANEL | | 1:43 PM | (HCC) Attention to | procedure are in the | | | | PST | ileostomy (HCC) | results section. | | | | | Ileostomy status | | | | | | (HCC) Malignant | | | | | | neoplasm of rectum | | | | | | (HCC) | | + +--------+ + + + documented in this encounter Results CEA (08/25/2019 1:43 PM PST) + +-------+ + + + | Component | Value | Ref Range | Performed | Pathologist | | | | | At | Signature | + +-------+ + + + | CEA | 4.5 | 0.0 - 10.0 | [facility] | [...] [address] | [place] | [phone] | | [facility] | | [address] | | | - LABORATORY | | | | + + + + + CBC with Differential (08/25/2019 1:43 PM PST) + + + + + + | Component | Value | Ref Range | Performed | Pathologist | | | | | At | Signature | + + + + + + | WBC | 5.8 | 4.0 - 11.0 K/uL | [facility] [...] + + + + | Hemoglobin | 13.8 | 11.5 - 16.0 | [facility] | | | | | g/dL | [facility] | | | | | | MEDICAL | | | | | | CENTER - | | | | | | LABORATORY | | + + + + + + | Hematocrit | 40.8 | 34.0 - 47.0 % | [facility] | | | | | | [facility] | | | | | | MEDICAL | | | | | | CENTER - | | | | | | LABORATORY | | + + + + + + | MCV | 84.1 | 83.0 - 101.0 fL | [facility] | | | | | | [facility] | | | | | | MEDICAL | | | | | | CENTER - | | | | | | LABORATORY | | + + + + + + | MCH | 28.5 | 28.0 - 35.0 pg | [facility] | | | | | | [facility] | | | | | | MEDICAL | | | | | | CENTER - | | | | | | LABORATORY | | + + + + + + | MCHC | 33.8 | 32.0 - 36.0 | [facility] | | | | | g/dL | [facility] | | | | | | MEDICAL | | | | | | CENTER - | | | | | | LABORATORY | | + + + + + + | RDW-CV | 12.8 | <15.0 % | [facility] | | | | | | [facility] | | | | | | MEDICAL | | | | | | CENTER - | | | | | | LABORATORY | | + + + + + + | RDW-SD | 39.0 | 35.1 - 46.3 fL | [facility] [...] + + + + | MPV | 9.7 | 6.5 - 12.4 fL | [facility] | | | | | | [facility] | | | | | | MEDICAL | | | | | | CENTER - | | | | | | LABORATORY | | + + + + + + | % | 60.1 | 45.0 - 82.0 % | [facility] | | | Neutrophils | | | [facility] | | | | | | MEDICAL | | | | | | CENTER - | | | | | | LABORATORY | | + + + + + + | % | 28.8 | 20.0 - 45.0 % | [facility] | | | Lymphocytes | | | [facility] | | | | | | MEDICAL | | | | | | CENTER - | | | | | | LABORATORY | | + + + + + + | % Monocytes | 8.6 | 4.0 - 12.0 % | [facility] | | | | | | [facility] | | | | | | MEDICAL | | | | | | CENTER - | | | | | | LABORATORY | | + + + + + + | % | 1.7 | 0.0 - 5.0 % | [facility] [...] + + + + + | % Immature | 0.5 (H)Comment: | 0.0 - 0.4 % | [facility] | | | Granulocyte | Preliminary studies have | | [facility] | | | s | indicated the IG% | | MEDICAL | | | | and/or IG# show promise | | CENTER - | | | | as an early indicator | | LABORATORY | | | | for infection. | | | | + + + + + + | Absolute | 3.48 | 1.80 - 8.50 | [facility] | | | Neutrophils | | K/uL | [facility] | | | | | | MEDICAL | | | | | | CENTER - | | | | | | LABORATORY | | + + + + + + | Absolute | 1.67 | 0.60 - 3.20 | [facility] | [...] + + + + | Absolute | 0.02 | 0.00 - 0.10 | [facility] | | | Basophils | | K/uL | [facility] | | | | | | MEDICAL | | | | | | CENTER - | | | | | | LABORATORY | | + + + + + + | Absolute | 0.03 | 0.00 - 0.03 | [facility] | | | Immature | | K/uL | [facility] | | | Granulocyte | | | MEDICAL | | | s | | | CENTER - | | | | | | LABORATORY | | + + + + + + | % nRBC | [...] | nRBC | | K/uL | [facility] | [...] + | [facility] | [address] | [place] | [phone] | | [facility] | | [address] | | | - LABORATORY | | | | + + + + + Comprehensive Metabolic Panel (08/25/2019 1:43 PM PST) + + + + + + | Component | Value | Ref Range | Performed | Pathologist | | | | | At | Signature | + + + + + + | Na | 140 | 136 - 145 | [facility] | | | | | mmol/L | [facility] | | | | | | MEDICAL | | | | | | CENTER - | | | | | | LABORATORY | | + + + + + + | K | 4.0 | 3.4 - 5.1 | [facility] | | | | | mmol/L | [facility] | | | | | | MEDICAL | | | | | | CENTER - | | | | | | LABORATORY | | + + + + + + | Cl | 107 | 98 - 107 mmol/L | [facility] [...] + + + | Anion Gap | 9 | 3 - 16 mmol/L | [facility] | | | | | | [facility] | | | | | | MEDICAL | | | | | | CENTER - | | | | | | LABORATORY | | + + + + + + | Glucose | 123 (H) | 60 - 106 mg/dL | [facility] | | | | | | [facility] | | | | | | MEDICAL | | | | | | CENTER - | | | | | | LABORATORY | | + + + + + + | BUN | 12 | 9 - 23 mg/dL | [facility] | | | | | | [facility] | | | | | | MEDICAL | | | | | | CENTER - | | | | | | LABORATORY | | + + + + + + | Creatinine | 0.96 | 0.55 - 1.02 | [facility] | | | | | mg/dL | [facility] | | | | | | MEDICAL | | | | | | CENTER - | | | | | | LABORATORY | | + + + + + + | eGFR if not | >60Comment: GLOMERULAR | >=60 | [facility] | | | | FILTRATION | mL/min/1.73m2 | [facility] | | | FINNISH | RATE,ESTIMATED | | MEDICAL | | | | mL/min/1.59e5Ytyu than | | CENTER - | | [...] + + + + | Albumin | 4.9 (H) | 3.2 - 4.8 g/dL | [facility] | | | | | | [facility] | | | | | | MEDICAL | | | | | | CENTER - | | | | | | LABORATORY | | + + + + + + | Bilirubin | 0.4 | 0.3 - 1.2 mg/dL | [facility] | | | Total | | | [facility] | | | | | | MEDICAL | | | | | | CENTER - | | | | | | LABORATORY | | + + + + + + | Total | 7.6 | 5.7 - 8.2 g/dL | [facility] | | | Protein | | | [facility] | | | | | | MEDICAL | | | | | | CENTER - | | | | | | LABORATORY | | + + + + + + | AST | 32 | 0 - 34 U/L | [facility] | | | | | | [facility] | | | | | | MEDICAL | | | | | | CENTER - | | | | | | LABORATORY | | + + + + + + | ALT | 39 | 10 - 49 U/L | [facility] | | | | | | [facility] | | | | | | MEDICAL | | | | | | CENTER - | | | | | | LABORATORY | | + + + + + + | Alkaline | 89 | 46 - 116 U/L | [facility] | | | Phosphatase | | | [facility] | | | | | | MEDICAL | | | | | | CENTER - | | | | | | LABORATORY | | + + + + + + | Globulin | 2.7 | 2.1 - 3.8 g/dL | [facility] | | | | | | [facility] | | | | | | MEDICAL | | | | | | CENTER - | | | | | | LABORATORY | | + + + + + + | Albumin/Nicol | 1.8 | 0.8 - 1.9 | [facility] | | | bulin Ratio | | | [facility] | | | | | | MEDICAL | | | | | | CENTER - | | | | | | LABORATORY | | + + + + + + | BUN/Creatin | 12.5 | | [facility] | | | ine [...] [address] | [place] | [phone] | | [facility] | | [address] | | | - LABORATORY | | | | + + + + + Iron and Transferrin (08/25/2019 1:43 PM PST) + + + + + + | Component | Value | Ref Range | Performed | Pathologist | | | | | At | Signature | + + + + + + | Iron | 67 | 50 - 170 ug/dL | [facility] | | | | | | [facility] | | | | | | MEDICAL | | | | | | CENTER - | | | | | | LABORATORY | | + + + + + + | TRANSFERRIN | 233.0 (L) | 250.0 - 380.0 | [facility] | | | | | mg/dL | [facility] | | | | | | MEDICAL | | | | | | CENTER - | | | | | | LABORATORY | | + + + + + + | TIBC | 326 | 235 - 425 ug/dL | [facility] | | | | | | [facility] | | | | | | MEDICAL | | | | | | CENTER - | | | | | | LABORATORY | | + + + + + + | % | 20.5 | 15.0 - 50.0 % | [facility] | | | SATURATION | | | [...] [address] | [place] | [phone] | | [facility] | | [address] | | | - LABORATORY | | | | + + + + + Ferritin (08/25/2019 1:43 PM PST) + +-------+ + + + | Component | Value | Ref Range | Performed | Pathologist | | | | | At | Signature | + +-------+ + + + | FERRITIN | 41 | 7 - 271 ng/mL | [facility] | | | | [...] [address] | [place] | [phone] | | [facility] | | [address] | | | - LABORATORY | | | | + + + + + documented in this encounter Visit Diagnoses + + | Diagnosis | + + | Rectal cancer (HCC) - Primary Malignant neoplasm of rectum | + + | Attention to ileostomy (HCC) Attention to ileostomy | + + | Ileostomy status (HCC) Ileostomy status | + + | Malignant neoplasm of rectum (HCC) Malignant neoplasm of rectum | + + | Obesity with body mass index 30 or greater | + + documented in this encounter"
--- OUTSIDE RECORDS SUMMARY | ~2020-02-23 | XMS | Encounter Summary ---
Demographics + + + | Address | [address] [facility] [address] | | | [place] [address] | + + + | Home Phone | | + + + | Preferred Language | Unknown | + + + | Marital Status | Single | + + + | Mandaeism Affiliation | 1041 | + + + | Race | Unknown | + + + | Ethnic Group | Unknown | + + + Author + + + | Author | [facility] | | | and [place] | + + + | Organization | [facility] | | | [...] Team Providers + +------+ + | Care Braiding Machine Operator Name | Role | Phone [...] | neoplasm of | Wing | [address] [place] | | | | | rectum (HCC) | Casimiro, MD | [place], | | | | | Procedures | [address] | [place] [address] | | | | | [place] | [place] | Phone: | | | | | [place] | [place], [place] | [phone] | | | | | , [place], [address] | [address] | Fax: | | | | | [place] | Phone: | [phone] | | | | | [place] | [phone] | | | | | | [place] | Fax: | | | | | | [place] | [phone] | | | | | | DEXAMETHASON | | | | | | | E, .25 MG | | | | | | | OR LORAZEPAM | | | | | | | INJECTION, | | | | | | | 2 MG OR | | | | | | | OXALIPLATIN, | | | | | | | .5 MG OR | | | | | | | NORMAL | | | | | | | SALINE | | | | | | | SOLUTION | | | | | | | INFUS, 500 | | | | | | | ML OR | | | | | | | NORMAL | | | | | | | SALINE | | | | | | | SOLUTION | | | | | | | INFUS, 250 | | | | | | | ML OR | | | | | | | STERILE | | | | | | | WATER/SALINE | | | | | | | , 10 ML OR | | | | | | | INJ HEPARIN | | | | | | | SODIUM PER | | | | | | | 1000U OR | | | | | | | CHEMOTHER, | | | | | | | IV INFUSION, | | | | | | | 1 HR OR | | | | | | | CHEMOTHER, | | | | | | | IV PUSH,EA | | | | | | | ADD DRUG OR | | | | | | | CHEMOTHER, | | | | | | | IV INFUSION, | | | | | | | EA HR OR | | | | | | | CHEMOTHER,NO | | | | | | | N-HORMONE | | | | | | | ANTI-NEOPL, | | | | | | | SUB-Q/IM OR | | | | | | | [...] | +--------+ + + + + | 02/21/ | Hospital | [facility] | Wing Frank | Rectal cancer (HCC) | | 2014 | Encounter | MED CTR CHEMO | MD Casimiro [address] | | | | | INFUSION [address] [place] | | | | | [place], | [place] [address] | | | | | [place] [address] | [phone] | | | | | [phone] | | | +--------+ + + + [...] tablets by | 80 | 5 | 02/22/20 | | | (XELODA) 500 mg | [...] + documented as of this encounter Progress Celeste Hernandez RN - 02/21/2015 1:19 PM PDTPatient discharged in satisfactory condition. Discharged ambulatory. With family. To home. Verified that patient has antinausea medications at home. Future appointments and After Visit Summary (AVS) provided. D/C IV to LFA catheter intact. 1 :20 PM PDTdocumented in this encounter Plan of Treatment Not on filedocumented as of this encounter Visit Diagnoses + + | Diagnosis | + + | Rectal cancer (HCC) Malignant neoplasm of rectum | + + documented in this encounter Administered Medications + +--------+ +-------+------+------+ | Medication Order | MAR | Action | Dose | Rate | Site | | | Action | Date | | | | + +--------+ +-------+------+------+ | dexamethasone (DECADRON) tablet | Given | 02/22/20 | 12 mg | | | | 12 mg 12 mg, Oral, ONCE, Sat | | 15 10:24 | | | | | 02/21/15 at 1030, For 1 dose, | | AM PDT | | | | | Administer 30 minutes before | | | | | | | chemotherapy., | | | | | | + +--------+ +-------+------+------+ +---+---+ | | | +---+---+ + +-------+ +-------+---+---+ | ondansetron (ZOFRAN ODT) | Given | 02/22/20 | 16 mg | | | | disintegrating tablet 16 mg 16 | | 15 10:25 | | | | | mg, Oral, ONCE, Sat02/21/15 at | | AM PDT | | | | | 1030, For 1 dose, Administer 30 | | | | | | | minutes before chemotherapy., | | | | | | + +-------+ +-------+---+---+ +---+---+ | | | +---+---+ + +---------+ +--------+--------+---+ | oxaliplatin (ELOXATIN) 215 mg | New Bag | 02/22/20 | 215 mg | 271.5 | | | in dextrose 5% 500 mL chemo | | 15 10:52 | | mL/hr | | | infusion 215 mg (rounded from | | AM PDT | | | | | 216 mg = 100 mg/m2 | | | | | | | 2.16 m2 Treatment plan recorded | | | | | | | BSA), Intravenous, Administer | | | | | | | over 2 Hours, ONCE, 02/21/15 | | | | | | | at 1100, For 1 dose, | | | | [...] | | | | | + +---------+ +--------+--------+---+ +---+---+ | | | +---+---+ documented in this encounter"
--- OUTSIDE RECORDS SUMMARY | ~2020-02-23 | XMS | Encounter Summary ---
Demographics + + + | Address | [address] [facility] [address] | | | [place] [address] | + + + | Home Phone | | + + + | Preferred Language | Unknown | + + + | Marital Status | Single | + + + | Restoration Affiliation | 1041 | + + + | Race | Unknown | + + + | Ethnic Group | Unknown | + + + Author + + + | Author | [facility] | | | and [place] | + + + | Organization | [facility] | | | [...] Team Providers + +------+ + | Care Banquet Captain Name | Role | Phone | + [...] + + + + | 04/07/ | Telephone | [facility] | Wing Frank | Other | | 2018 | | [facility] | MD Casimiro [address] | | | | | [facility] [address] | [address] [place] | | | | | [address] [place] | [place] [address] | | | | | [place] [address] | [phone] | | | | | [phone] | | | +--------+ + + + [...]
--- OUTSIDE RECORDS SUMMARY | ~2020-02-23 | XMS | Encounter Summary ---
Demographics + + + | Address | [address] [facility] [address] | | | [place] [address] | + + + | Home Phone | | + + + | Preferred Language | Unknown | + + + | Marital Status | Single | + + + | Cheondoism Affiliation | 1041 | + + + | Race | Unknown | + + + | Ethnic Group | Unknown | + + + Author + + + | Author | [facility] | | | and [place] | + + + | Organization | [facility] | | [...] Team Providers + +------+ + | Care Bladder Cleaner Name | Role | Phone | + [...] [address] [place] | | | | | [place] OFFICE | [address] | [place], [place] | | | | | OUTPATIENT | [place]ENT[place], | [address] Phone: | | | | | VISIT 25 | [place] | [phone] | | | | | MINUTES | [address] | Fax: | | | | | | Phone: | [phone] | | | | | | [phone] | | | | | | | Fax: | | | | | | | [phone] | | +--------+--------+ + + + + Encounter Details +--------+ + + + + | Date | Type | Department | Care Team | Description | +--------+ + + + + | 06/18/ | Hospital | [facility] | FrankWing | Rectal cancer (HCC) | | 2017 | Encounter | MED CTR MEDICAL | MD Casimiro [address] | (Primary Dx) | | | | ONCOLOGY CLINIC [address] | [address] [place] | | | | | [address] [place] | [place] [address] | | | | | [place] [address] | [phone] | | | | | [phone] | | | +--------+ + + + [...] erent from the original. Hem-Onc Progress Note [facility] Pt. Name/Age/: Fang Ziegler Stephenson 52 y.o. 1965 Med. Record Number: [id number] Date of admission: 06/18/2017 Assessment and plan: 1. 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 Ronaldo Hess, [facility] , Nov, 2014 with no histologically identifiable [...] Electronically signed by: Wing Frank, 06/18/2017 15:35 [facility] TIME SPENT 20 MIN. > 50% AT BEDSIDE, WITH FAMILY/PATIENT IN CARE AND ASSOCIATE EDITOR ON UNIT AND CO ORDINATION OF CARE Portions of this chart may have been created with [employer] voice recognition software. Occasi onal wrong-word or [...] + | [facility] | [address] | [place] | [phone] | | [facility] | | [address] | | | - LABORATORY | | [...] ST. | [address] | [place], [place] | [phone] | | [facility] | | [address] | | | - LABORATORY | | [...] + | [facility] | [address] | [place] | [phone] | | [facility] | | [address] | | | - LABORATORY | | [...] | | | | | mg/dL | [facility] | | | | | | MEDICAL | | | | | | CENTER - | | | | | | LABORATORY | | + + + + + + | eGFR if not | >60Comment: GLOMERULAR | >=60 | [facility] | | | | FILTRATION | mL/min/1.73m2 | [facility] | | | ENGLISH | RATE,ESTIMATED | | MEDICAL | | | | mL/min/1.97j7Iffi than | | CENTER - | | [...] | | | | | mg/dL | [facility] | | | | | | MEDICAL [...] [address] | [place] | [phone] | | [facility] | | [address] | | | - LABORATORY | | [...] [address] | [place] | [phone] | | [facility] | | [address] | | | - LABORATORY | | | | + + + + + documented in this encounter Visit Diagnoses + + | Diagnosis | + + | Rectal cancer (HCC) - Primary Malignant neoplasm of rectum | + + documented in this encounter"
--- OUTSIDE RECORDS SUMMARY | ~2020-02-23 | XMS | Encounter Summary ---
Demographics + + + | Address | [address] [facility] [address] | | | [place] [address] | + + + | Home Phone | | + + + | Preferred Language | Unknown | + + + | Marital Status | Single | + + + | Buddhist Affiliation | 1041 | + + + | Race | Unknown | + + + | Ethnic Group | Unknown | + + + Author + + + | Author | [facility] | | | and [place] | + + + | Organization | [facility] | | [...] Team Providers + +------+ + | Care Front End Architect Name | Role | Phone | + [...] | | | | Procedures | [place], [place] | [address] [place] | | | | | [place] OFFICE | [address] | [place] | | | | | OUTPATIENT | Phone: | [phone] Phone: | | | | | VISIT 25 | [phone] | [phone] | | | | | MINUTES | Fax: | Fax: | | | | | | [phone] | [phone] | +--------+--------+ + + + + Encounter Details +--------+ + + + + | Date | Type | Department | Care Team | Description | +--------+ + + + + | 03/14/ | Hospital | [facility] | Wing Frank | Rectal cancer (HCC) | | 2015 | Encounter | MED CTR MEDICAL | MD Casimiro [address] | | | | | ONCOLOGY CLINIC [address] | [address] [place] | | | | | [address] [place] | [place] [address] | | | | | [place] [address] | [phone] | | | | | [phone] | | | +--------+ + + + [...] + + + | Blood Pressure | 125/82 | 03/14/2015 9:48 AM | | | | | PDT | | + + + + + | Pulse | 82 | 03/14/2015 9:48 AM | | | | | PDT | | + + + + + | Temperature | 36.3 C (97.3 F) | 03/14/2015 9:48 AM | | | | | PDT | | + + + + + | Respiratory Rate | 16 | 03/14/2015 9:48 AM | | | | | PDT | | + + + + + | Oxygen Saturation | 100% | 03/14/2015 9:48 AM | | | | | PDT | | + + + + + | Inhaled Oxygen | - | - | | | Concentration | | | | + + + + + | Weight | 97.7 kg (215 lb 6.2 | 03/14/2015 9:48 AM | | | | oz) | PDT | | + + + + + | Height | - | - | | + + + + + | Body Mass Index | 35.46 | 01/31/2015 11:35 AM | | | [...] encounter Progress Notes Wing Frank MD - 03/14/2015 10:11 AM PDTFormatting of this note might be diff erent from the original. Patient is a 49 y.o. female seen today, 03/14/2015, for chemotherapy with CapeOx for rectal c arcinoma. Today is day 1/cycle 3 of therapy. Patient complaints: abdominal distension, cramping abdominal pain, loss of sleep Symptoms are rapidly worsening during the past 24 hours. She describes a period of abdominal distention, decrease in output from her ileostomy occur ring over the past several days. She tried a number of maneuvers including rolling on the f xi and then trying intake of different juices such as cranberry juice. She describes how yesterday the ileostomy opened up discouraging contents which allowed her to feel better. At the same time patient also experiencing diminished sleep and she describes that this is occurring despite feeling tired. She also experiences some tenderness in the feet noting that her job requires her to stand for extended periods of time. Advance Directives: not addressed Appropriate portions of [...] chest pain, palpitations o r orthopnea. Respiratory: Pt reports a new cough, this is non productive. Denies hemoptysis, or sputum p roduction. Gastrointestinal: Pt reports abdominal pain, abdominal distention. Denies constipation, ivory rrhea, melena, or bright red blood per rectum. Pt thinks there is a blockage in her ileostom y. Genitourinary: Denies hematuria or dysuria. Musculoskeletal: Denies joint pain or tenderness. Neurologic: Pt reports increased headaches, visual changes, and numbness/tingling of the ex tremities. Endocrine: Denies peripheral edema or heat/cold intolerance. Hematologic: Denies spontaneous bruising or bleeding. Integumentary: Denies rash, wounds or other skin concerns. Pain:Pt rates the abdominal pain at a 4/10, this is with out pain medication. Objective: BP 125/82 | Pulse 82 | Temp(Src) 36.3 C (97.3 F) (Oral) | Resp 16 | Wt 97.7 kg (215 lb 6.2 oz) | SpO2 100% General appearance: alert, appears stated age and cooperative Lungs: clear to auscultation bilaterally Heart: regular rate and rhythm, S1, S2 normal, no murmur, click, rub or gallop Abdomen: soft, non-tender; bowel sounds normal; no masses, no organomegaly and Colostomy a ppears to be well functioning Extremities: extremities normal, atraumatic, no cyanosis or edema Skin: Skin color, texture, turgor normal. No rashes or lesions Lymph nodes: Cervical, supraclavicular, and axillary nodes normal. Data Review CBC: Lab Results Component Value Date WBC 3.5* 03/14/2015 RBC 3.77 03/14/2015 BMP: Lab Results Component Value Date CO2 24 02/21/2015 BUN 13 02/21/2015 CALCIUM 9.3 02/21/2015 Assessment: Active Problems: 1. Rectal cancer (HCC) Plan: The patient has a documented plan of care to address pain. Discussion today concerning possibility of enterocolitis as a cause for patient's abdominal distention. Based on this have recommended a decrease in her Xeloda by a factor of about 3 0%. We also discussed the possibility for upcoming evaluation and anticipating potential re versal of her ileostomy. Based on physical examination today with stable blood counts have authorized a third cycle of CapeOx combination chemotherapy. We are going to reduce the amount of dexamethasone prob ably contributing to patient's diminished sleep as a means of helping overall recovery from treatment. Wing Frank Leah Rodriguez CMA - 03/14/2015 9:52 AM PDTREVIEW OF SYSTEMS Constitutional: Denies fatigue. Denies high fevers, shaking chills, anorexia, nausea, vomit ing, weight loss, or night sweats. Appetite without changes. Ear, Nose, Mouth, Throat: Denies odynophagia, dysphagia, or tinnitus. Cardiovascular: Denies shortness of breath, dyspnea on exertion, chest pain, palpitations o r orthopnea. Respiratory: Pt reports a new cough, this is non productive. Denies hemoptysis, or sputum p roduction. Gastrointestinal: Pt reports abdominal pain, abdominal distention. Denies constipation, di arrhea, melena, or bright red blood per rectum. Pt thinks there is a blockage in her ileosto my. Genitourinary: Denies hematuria or dysuria. Musculoskeletal: Denies joint pain or tenderness. Neurologic: Pt reports increased headaches, visual changes, and numbness/tingling of the e xtremities. Endocrine: Denies peripheral edema or heat/cold intolerance. Hematologic: Denies spontaneous bruising or bleeding. Integumentary: Denies rash, wounds or other skin concerns. Pain:Pt rates the abdominal pain at a 4/10, this is with out pain medication. Note: Pt is here for labs and tx My chart: documented in this encounter Plan of Treatment Not on filedocumented as of this encounter Procedures + +--------+ + + + | Procedure Name | Priori | Date/Time | Associated Diagnosis | Comments | | | ty | | | | + +--------+ + + + | CBC WITH | STAT | 03/14/2015 | Rectal cancer | Results for this | | DIFFERENTIAL | | 9:29 AM | (HCC) | procedure are in the | | | | PDT | | results section. | + +--------+ + + + | LACTATE | STAT | 03/14/2015 | Rectal cancer | Results for this | | DEHYDROGENASE | | 9:29 AM | (HCC) | procedure are in the | | | | PDT | | results section. | + +--------+ + + + | CEA | STAT | 03/14/2015 | Rectal cancer | Results for this | | | | 9:29 AM | (HCC) | procedure are in the | | | | PDT | | results section. | + +--------+ + + + | COMPREHENSIVE | STAT | 03/14/2015 | Rectal cancer | Results for this | | METABOLIC PANEL | | 9:29 AM | (HCC) | procedure are in the | | | | PDT | | results section. | + +--------+ + + + documented in this encounter Results CEA (03/14/2015 9:29 AM PDT) + +-------+ + + + [...] [address] | [place] | [phone] | | [facility] | | [address] | | | - LABORATORY | | | | + + + + + CBC with Differential (03/14/2015 9:29 AM PDT) + + + + + + | Component | Value | Ref Range | Performed | Pathologist | | | | | At | Signature | + + + + + + | WBC | 3.5 (L) | 4.0 - 11.0 K/uL | [facility] | | | | | | [facility] | | | | | | MEDICAL | | | | | | CENTER - | | | | | | LABORATORY | | + + + + + + | RBC | 3.77 | 3.70 - 5.20 | [facility] | | | | | M/uL | [facility] | | | | | | MEDICAL | | | | | | CENTER - | | | | | | LABORATORY | | + + + + + + | Hemoglobin | 11.0 (L) | 11.5 - 16.0 | [facility] | | | | | g/dL | [facility] | | | | | | MEDICAL | | | | | | CENTER - | | | | | | LABORATORY | | + + + + + + | Hematocrit | 32.7 (L) | 34.0 - 47.0 % | [...] + + + + | MCH | 29.2 | 28.0 - 35.0 pg | [facility] | | | | | | [facility] | | | | | | MEDICAL | | | | | | CENTER - | | | | | | LABORATORY | | + + + + + + | MCHC | 33.6 | 32.0 - 36.0 | [facility] | | | | | g/dL | [facility] | | | | | | MEDICAL | | | | | | CENTER - | | | | | | LABORATORY | | + + + + + + | RDW-CV | 16.4 (H) | <15.0 % | [facility] | | | | | | [facility] | | | | | | MEDICAL | | | | | | CENTER - | | | | | | LABORATORY | | + + + + + + | Platelet | 176 | 140 - 440 K/uL | [facility] [...] + + + + | % | 69.2 | 45.0 - 82.0 % | [facility] | | | Neutrophils | | | [facility] | | | | | | MEDICAL | | | | | | CENTER - | | | | | | LABORATORY | | + + + + + + | % | 14.2 (L) | 20.0 - 45.0 % | [facility] | | | Lymphocytes | | | [facility] | | | | | | MEDICAL | | | | | | CENTER - | | | | | | LABORATORY | | + + + + + + | % Monocytes | 12.1 (H) | 4.0 - 12.0 % | [facility] | | | | | | [facility] | | | | | | MEDICAL | | | | | | CENTER - | | | | | | LABORATORY | | + + + + + + | % | 4.0 | 0.0 - 5.0 % | [facility] [...] + + + + | Absolute | 2.40 | 1.80 - 8.50 | [facility] | [...] [address] | [place] | [phone] | | [facility] | | [address] | | | - LABORATORY | | | | + + + + + Lactate Dehydrogenase (03/14/2015 9:29 AM PDT) + +---------+ + + + | Component | Value | Ref Range | Performed | Pathologist | | | | | At | Signature | + +---------+ + + + | LDH TOTAL | 203 (H) | 91 - 180 U/L | [facility] | | | | | [...] [address] | [place] | [phone] | | [facility] | | [address] | | | - LABORATORY | | | | + + + + + Comprehensive Metabolic Panel (03/14/2015 9:29 AM PDT) + + + + + + | Component | Value | Ref Range | Performed | Pathologist | | | | | At | Signature | + + + + + + | Na | 137 | 136 - 149 | [facility] | [...] | Cl | 104 | 98 - 109 mmol/L | [facility] | | | | | | [facility] | | | | | | MEDICAL | | | | | | CENTER - | | | | | | LABORATORY | | + + + + + + | CO2 | 21 (L) | 24 - 31 mmol/L | [facility] | | | | | | [facility] | | | | | | MEDICAL | | | | | | CENTER - | | | | | | LABORATORY | | + + + + + + | Anion Gap | 12 | 3 - 16 mmol/L | [facility] | | | | | | [facility] | | | | | | MEDICAL | | | | | | CENTER - | | | | | | LABORATORY | | + + + + + + | Glucose | 219 (H) | 70 - 109 mg/dL | [facility] | | | | | | [facility] | | | | | | MEDICAL | | | | | | CENTER - | | | | | | LABORATORY | | + + + + + + | BUN | 11 | 7 - 18 mg/dL | [facility] | | | | | | [facility] | | | | | | MEDICAL | | | | | | CENTER - | | | | | | LABORATORY | | + + + + + + | Creatinine | 1.06 | 0.60 - 1.30 | [facility] | | | | | mg/dL | [facility] | | | | | | MEDICAL | | | | | | CENTER - | | | | | | LABORATORY | | + + + + + + | eGFR if not | 55 (L)Comment: | >=60 | [facility] | | | | GLOMERULAR FILTRATION | mL/min/1.73m2 | [facility] | | | [facility] | RATE,ESTIMATED | | MEDICAL | | | | mL/min/1.12q3Zndp than | | CENTER - | | [...] + + + + | Calcium | 9.0 | 8.3 - 10.5 | [facility] | | | | | mg/dL | [facility] | | | | | | MEDICAL | | | | | | CENTER - | | | | | | LABORATORY | | + + + + + + | Albumin | 3.6 | 3.2 - 5.0 g/dL | [facility] [...] + + + + | Total | 6.4 | 6.0 - 7.8 g/dL | [facility] | | | Protein | | | [facility] | | | | | | MEDICAL | | | | | | CENTER - | | | | | | LABORATORY | | + + + + + + | AST | 49 (H) | 10 - 42 U/L | [facility] | | | | | | [facility] | | | | | | MEDICAL | | | | | | CENTER - | | | | | | LABORATORY | | + + + + + + | ALT | 43 | 6 - 45 U/L | [facility] | | | | | | [facility] | | | | | | MEDICAL | | | | | | CENTER - | | | | | | LABORATORY | | + + + + + + | Alkaline | 81 | 40 - 110 U/L | [facility] | | | Phosphatase | | | [facility] | | | | | | MEDICAL | | | | | | CENTER - | | | | | | LABORATORY | | + + + + + + | Globulin | 2.8 | g/dL | [facility] | | | [...] + + + + | BUN/Creatin | 10.4 | | [facility] | | | ine [...] ST. | [address] | [place] | [phone] | | [facility] | | [address] | | | - LABORATORY | | | | + + + + + documented in this encounter Visit Diagnoses + + | Diagnosis | + + | Rectal cancer (HCC) Malignant neoplasm of rectum | + + documented in this encounter"
--- OUTSIDE RECORDS SUMMARY | ~2020-02-23 | XMS | Encounter Summary ---
Demographics + + + | Address | [address] | | | [place] [address] | + + + | Home Phone | | + + + | Preferred Language | Unknown | + + + | Marital Status | Single | + + + | Congregation Affiliation | [id number] | + + + | Race | Unknown | + + + | Ethnic Group | Unknown | + + + Author + + + | Author | [facility] | | | and [place] | + + + | Organization | [facility] | | | [...] Team Providers + +------+ + | Care Operations Research Director Name | Role | Phone | + [...] | | | | | Rectal | Robbi Frank | | | | | cancer (HCC) | Wing | [place], | | | | | Procedures | MD Casimiro | [place] [address] | | | | | CT Chest | [address] | Phone: | | | | | Abdomen | [place] | [phone] | | | | | Pelvis w | [place], [place] | Fax: | | | | | Contrast | [address] | [phone] | | | | | | Phone: | | | | | | | [phone] | | | | | | | Fax: | | | | | | | [phone] | | +--------+--------+ + + + + Reason for Visit Evaluate & Treat [...] [facility] [place] | | | | | [place] OFFICE | [address] | [place], [place] | | | | | OUTPATIENT | Phone: | [phone] Phone: | | | | | VISIT 25 | [phone] | [phone] | | | | | MINUTES | Fax: | Fax: | | | | | | [phone] | [phone] | +--------+--------+ + + + + Encounter Details +--------+ + + + + | Date | Type | Department | Care Team | Description | +--------+ + + + + | 01/15/ | Hospital | [facility] | Wing Frank | Rectal cancer (HCC) | | 2016 | Encounter | [facility] | MD Casimiro [address] | (Primary Dx); Iron | | | | [facility] [address] | [facility] | deficiency anemia | | | | [address] | [place] [address] | due to chronic blood | | | | [place] [address] | [phone] | loss | | | | [phone] | | | +--------+ + + + [...] + + + | Blood Pressure | 153/81 | 01/16/2016 2:12 PM | | | | | PDT | | + + + + + | Pulse | 74 | 01/16/2016 2:12 PM | | | | | PDT | | + + + + + | Temperature | 36.9 C (98.4 F) | 01/16/2016 2:12 PM | | | | | PDT | | + + + + + | Respiratory Rate | 18 | 01/16/2016 2:12 PM | | | | | PDT | | + + + + + | Oxygen Saturation | 98% | 01/16/2016 2:12 PM | | | | | PDT | | + + + + + | Inhaled Oxygen | - | - | | | Concentration | | | | + + + + + | Weight | 98.4 kg (216 lb 14.9 | 01/16/2016 2:12 PM | | | | oz) | PDT | | + + + + + | Height | - | - | | + + + + + | Body Mass Index | 35.71 | 01/31/2015 11:35 AM | | | [...] | + + + +---------+--------+ + | DICLOFENAC PO | Take by mouth | | 0 | | | | | Daily. | | | | 6 | + [...] encounter Progress Notes Wing Frank MD - 01/16/2016 2:31 PM PDTFormatting of this note might be diff erent from the original. Hem-Onc Progress Note [facility] Pt. Name/Age/: Fang Stephenson 50 y.o. 1965 Med. Record Number: [id number] Date of admission: 01/16/2016 Assessment and plan: 1. 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 Ronaldo Hess, [facility] , Nov, 2014 with no histologically identifiable residual disease, Thus ypT0,N0 (0/7), M0 S/p 4 cycles post-surgical adjuvant CapOx chemotherapy: January-March, Counseling session today taking node of recent findings from colonoscopy which may account for drop in blood count with today's hemoglobin at 10 g percent and diminishing red blood ce ll indices that all would be consistent with more in the way of GI blood loss anemia. To as sess this further we have added on laboratory testing to obtain an estimate of available ser um and storage iron capacity. Patient might benefit from parenteral iron replacement. She might also benefit from counseling with regard to nutrition and tactics to reduce risk of Di verticulitis. At the same time patient has not had surveillance CT scan and this is probably an opportuni ty to perform this as an additional means of reassuring patient with regard to status of her remission. Accordingly we have requested CT of chest abdomen and pelvis. We are also anand g to see patient back sooner for short-term follow-up and report. Subjective: The patient chart and medications were reviewed in detail and the patient was seen and exam ined. Fang Stephenson is a 50 y.o. female returns today for follow-up and surveillance followi ng earlier resection of primary rectal carcinoma. Patient has not felt well in the time since her most recent visit at the end of last year. Chief among her concerns has been the development of discomfort in the left lower quadrant in the abdomen. She had been back to see Dr. Russell earlier in November with colonoscopy re ported to show changes consistent with diverticulitis. Recall the patient did have divertic agustina on an earlier examination from last . That earlier examination had suggested a he althy anastomosis without signs of tumor recurrence. Other symptoms include a overall increase in level of fatigue. Her sister describes an inc rease in anxiety referable to the possibility of recurrence of cancer. She also describes p eriodic episodes of diarrhea. She is intolerant of oral iron which causes her stomach to hu rt and ache. PSH: Reviewed, no changes to admission H&P. Review of Systems: Constitutional: States her energy level varies. States it might be from the stress or depre ssion. States she never use to sleep after work and now she has been sleeping 2-3 hours for the last week. Denies high fevers, shaking chills, anorexia, nausea, vomiting. Weight gain o f approximately 10 lbs, for the last month. No night sweats. Appetite without changes. Ear, Nose, Mouth, Throat: Denies odynophagia, dysphagia, or tinnitus. Cardiovascular: Denies shortness of breath. Dyspnea on exertion. States it's because she is anemic. No chest pain, palpitations or orthopnea. Respiratory: Denies cough, hemoptysis, or sputum production. Gastrointestinal: Intermittent sharp pressure pain noted to left lower quadrant. States freddie t they had told her its from her surgery. However, she is concern, since she had her surgery in April. States she has noticed when it's winding outside she feels bloated and constipated . No diarrhea, melena, or bright red blood per rectum. States she has noticed blood on the t issue. States her skin area her rectum is irritated. Genitourinary: Denies hematuria or dysuria. Musculoskeletal: Denies [...] Redness and irritation during chemotherapy Objectives: Temp: 36.9 C (98.4 F) BP: 153/81 mmHg Pulse: 74 Resp: 18 SpO2: 98 % on Min/Max Temp past 24 hours:Temp Av.9 C (98.4 F) Min: 36.9 C (98.4 F) Max: 3 6.9 C (98.4 F) No intake or output data in the 24 hours ending 01/16/16 1431 Wt. Admission: Weight: 98.4 kg (216 lb 14.9 oz) Wt. Current: Weight: 98.4 kg (216 lb 14 .9 oz) Physical Exam: Exam: General: The patient [...] the Assessment and Plan. Recent Labs Lab 01/16/16 1343 WBC 4.7 HGB 10.1* HCT 31.1* PLT 228 Recent Labs Lab 01/16/16 1343 NA 141 K 4.1 CL 110* CO2 23* BUN 16 CREA 0.83 GLU 112* CALCIUM 9.0 BILITOT 0.3 AST 20 ALT 14 ALKPHOS 81 ALBUMIN 3.6 Electronically signed by: Wing Frank, 01/16/2016 14:31 [facility] TIME SPENT 30 MIN. > 50% AT BEDSIDE, WITH FAMILY/PATIENT IN CARE AND PORT CDL A DRIVER ON UNIT AND CO ORDINATION OF CARE Portions of this chart may have been created with [employer] voice recognition software. Occasi onal wrong-word or sound-alike substitutions may have occurred due to the inherent rutherford itations of voice recognition software. Please read the chart carefully and recognize, using context, where these substitutions have occurred. oCeleste moreland RN - 01/16/2016 1:59 PM PDTREVIEW OF SYSTEMS Constitutional: States her energy level varies. States it might be from the stress or depre ssion. States she never use to sleep after work and now she has been sleeping 2-3 hours for the last week. Denies high fevers, shaking chills, anorexia, nausea, vomiting. Weight gain o f approximately 10 lbs, for the last month. No night sweats. Appetite without changes. Ear, Nose, Mouth, Throat: Denies odynophagia, dysphagia, or tinnitus. Cardiovascular: Denies shortness of breath. Dyspnea on exertion. States it's because she is anemic. No chest pain, palpitations or orthopnea. Respiratory: Denies cough, hemoptysis, or sputum production. Gastrointestinal: Intermittent sharp pressure pain noted to left lower quadrant. States freddie t they had told her its from her surgery. However, she is concern, since she had her surgery in April. States she has noticed when it's winding outside she feels bloated and constipated . No diarrhea, melena, or bright red blood per rectum. States she has noticed blood on the t issue. States her skin area her rectum is irritated. Genitourinary: Denies hematuria or dysuria. Musculoskeletal: Denies joint pain or tenderness. Neurologic: Denies headache, visual changes, or numbness/tingling of the extremities. Endocrine: Denies peripheral edema or heat/cold intolerance. Hematologic: Denies spontaneous bruising or bleeding. Integumentary: Denies rash, wounds or other skin concerns. Pain: Denies pain. Note:3 months follow up appointment and labs. She is here to review mammogram that she had at [facility]. My chart:Active documen crescencio in this encounter Plan of Treatment Not on filedocumented as of this encounter Procedures + +--------+ + + + | Procedure Name | Priori | Date/Time | Associated Diagnosis | Comments | | | ty | | | | + +--------+ + + + | CBC WITH | STAT | 01/16/2016 | Rectal cancer | Results for this | | DIFFERENTIAL | | 1:43 PM | (HCC) | procedure are in the | | | | PDT | | results section. | + +--------+ + + + | CEA | STAT | 01/16/2016 | Rectal cancer | Results for this | | | | 1:43 PM | (HCC) | procedure are in the | | | | PDT | | results section. | + +--------+ + + + | COMPREHENSIVE | STAT | 01/16/2016 | Rectal cancer | Results for this | | METABOLIC PANEL | | 1:43 PM | (HCC) | procedure are in the | | | | PDT | | results section. | + +--------+ + + + documented in this encounter Results CT Chest Abdomen Pelvis w Contrast (02/07/2016 9:19 AM PDT) + + | Specimen | + + | | + + + + + | Narrative | Performed At | + + + | CT CHEST ABDOMEN PELVIS W CONTRAST 02/07/2016 9:17 AM HISTORY: | [facility] | | Restaging rectal carcinoma. COMPARISON: MRI pelvis 08/10/2014, CT | | | scan 07/05/2014. PROTOCOL: Axial images of the chest, abdomen, and | | | pelvis were obtained after uneventful administration of 90 mL | | | Omnipaque 350 and oral contrast. Coronal and sagittal reformations | | | were acquired. CHEST FINDINGS: Neck base is normal. The heart | | | is of normal size. Aorta is normal. The pulmonary arteries are | | | unremarkable. SVC is normal. No enlarged lymph nodes are seen in | | | the mediastinum, kwame, or axilla. Trachea and esophagus are normal. | | | The bilateral lungs are clear. There is no evidence for pleural | | | effusion or pneumothorax. ABDOMEN/PELVIS FINDINGS: The liver | | | demonstrates normal parenchyma. The gallbladder is normal. Biliary | | | ducts are unremarkable. The spleen is unremarkable. The pancreas | | | demonstrates normal parenchyma and a normal pancreatic duct. Adrenal | | | glands are normal. There is stable moderate to severe atrophy of | | | the right kidney with multiple small subcentimeter cysts anteriorly | | | that are too small to characterize. Visualized right ureter is | | | normal. The left kidney and visualized ureter are normal. | | | Stomach and jejunum are normal. There is a clump of ileum in the right | | | upper quadrant of the abdomen with suture material (image 91). No | | | obstruction is seen in this region. The appendix has a normal | | | appearance. Previously observed wall thickening in the rectum has | | | resolved. There is no definite evidence for tumor recurrence. | | | Aorta is nonaneurysmal. The iliac arteries are normal. There is no | | | significant abnormality in the portal veins, mesenteric veins, or | | | systemic veins. No enlarged lymph nodes are visualized within the | | | omentum or retroperitoneum. There is no evidence for ascites or | | | free air. Bladder is normal. A low-attenuation fibroid is in | | | the mid fundus of the uterus that measures 1.3 cm and remains stable. | | | An exophytic low-attenuation fibroid is in the left fundus that | | | measures 2.2 cm and remains stable. Adnexa are unremarkable. BODY | | | WALL FINDINGS: Postoperative changes are in the anterior abdominal | | | wall within the subcutaneous fat. There has been interval development | | | of a moderate right ventral hernia of the anterior abdominal wall | | | that measures 2.8 x 5.2 cm (AP, transverse) with a loop of small | | | bowel extending into it. There is no evidence for obstruction. There | | | is mild S-shaped scoliosis of the thoracolumbar spine along with | | | moderate spondylosis. Mild disc narrowing are at L3-4 and L4-5 with | | | vacuum disc phenomenon. IMPRESSION - Resolution of previously | | | observed circumferential wall thickening involving the rectum. | | | Clumping of ileal loops in right upper quadrant of the abdomen with | | | adjacent sutures. No obstruction is seen. This is nonspecific but | | | could represent the presence of adhesions. Interval development | | | of right ventral hernia involving anterior abdominal wall with loop | | | of small bowel extending into it but no obstruction. Stable | | | fibroids of the uterus. Dictated and Signed by: Bubba Hutchinson MD | | | Electronically signed: 02/07/2016 12:47 PM | | + + + + + | Procedure Note | + + | Gianni, Rad Results In - 02/07/2016 12:[address] CHEST ABDOMEN PELVIS W CONTRAST | | 02/07/2016 9:17 AMHISTORY: Restaging rectal carcinoma.COMPARISON: MRI pelvis 08/10/2014, | | CT scan 07/05/2014.PROTOCOL: Axial images of the chest, abdomen, and pelvis were obtained | | afteruneventful administration of 90 mL Omnipaque 350 and oral contrast. Coronal | | andsagittal reformations were acquired.CHEST FINDINGS:Neck base is normal.The heart is | | of normal size. Aorta is normal. The pulmonary arteries areunremarkable. SVC is | | normal.No enlarged lymph nodes are seen in the mediastinum, kwame, or axilla. Tracheaand | | esophagus are normal.The bilateral lungs are clear. There is no evidence for pleural | | effusion orpneumothorax.ABDOMEN/PELVIS FINDINGS:The liver demonstrates normal | | parenchyma. The gallbladder is normal. Biliaryducts are unremarkable.The spleen is | | unremarkable. The pancreas demonstrates normal parenchyma and anormal pancreatic duct. | | Adrenal glands are normal.There is stable moderate to severe atrophy of the right kidney | | with multiplesmall subcentimeter cysts anteriorly that are too small to | | characterize.Visualized right ureter is normal.The left kidney and visualized ureter are | | normal.Stomach and jejunum are normal. There is a clump of ileum in the right | | upperquadrant of the abdomen with suture material (image 91). No obstruction is seenin | | this region. The appendix has a normal appearance. Previously observed wallthickening in | | the rectum has resolved. There is no definite evidence for tumorrecurrence.Aorta is | | nonaneurysmal. The iliac arteries are normal. There is no significantabnormality in the | | portal veins, mesenteric veins, or systemic veins. No enlarged lymph nodes are | | visualized within the omentum or retroperitoneum.There is no evidence for ascites or | | free air.Bladder is normal.A low-attenuation fibroid is in the mid fundus of the uterus | | that measures 1.3cm and remains stable. An exophytic low-attenuation fibroid is in the | | leftfundus that measures 2.2 cm and remains stable. Adnexa are unremarkable.BODY WALL | | FINDINGS:Postoperative changes are in the anterior abdominal wall within the | | subcutaneousfat. There has been interval development of a moderate right ventral hernia | | ofthe anterior abdominal wall that measures 2.8 x 5.2 cm (AP, transverse) with aloop of | | small bowel extending into it. There is no evidence for obstruction.There is mild | | S-shaped scoliosis of the thoracolumbar spine along with moderatespondylosis. Mild disc | | narrowing are at L3-4 and L4-5 with vacuum discphenomenon.IMPRESSION -Resolution of | | previously observed circumferential wall thickening involving therectum.Clumping of | | ileal loops in right upper quadrant of the abdomen with adjacentsutures. No obstruction | | is seen. This is nonspecific but could represent thepresence of adhesions.Interval | | development of right ventral hernia involving anterior abdominal wallwith loop of small | | bowel extending into it but no obstruction.Stable fibroids of the uterus.Dictated and | | Signed by: Bubba Hutchinson MD Electronically signed: 02/07/2016 12:47 PM | |quadrant of the abdomen with suture material (image 91). No obstruction is seen | |in this region. The appendix has a normal appearance. Previously observed wall | |thickening in the rectum has resolved. There is no definite evidence for tumor | |recurrence. | | | |Aorta is nonaneurysmal. The iliac arteries are normal. There is no significant | |abnormality in the portal veins, mesenteric veins, or systemic veins. | | | |No enlarged lymph nodes are visualized within the omentum or retroperitoneum. | | | |There is no evidence for ascites or free air. | | | |Bladder is normal. | | | |A low-attenuation fibroid is in the mid fundus of the uterus that measures 1.3 | |cm and remains stable. An exophytic low-attenuation fibroid is in the left | |fundus that measures 2.2 cm and remains stable. Adnexa are unremarkable. | | | |BODY WALL FINDINGS: | |Postoperative changes are in the anterior abdominal wall within the subcutaneous | |fat. There has been interval development of a moderate right ventral hernia of | |the anterior abdominal wall that measures 2.8 x 5.2 cm (AP, transverse) with a | |loop of small bowel extending into it. There is no evidence for obstruction. | |There is mild S-shaped scoliosis of the thoracolumbar spine along with moderate | |spondylosis. Mild disc narrowing are at L3-4 and L4-5 with vacuum disc | |phenomenon. | | | |IMPRESSION - | |Resolution of previously observed circumferential wall thickening involving the | |rectum. | | | |Clumping of ileal loops in right upper quadrant of the abdomen with adjacent | |sutures. No obstruction is seen. This is nonspecific but could represent the | |presence of adhesions. | | | |Interval development of right ventral hernia involving anterior abdominal wall | |with loop of small bowel extending into it but no obstruction. | | | |Stable fibroids of the uterus. | | | |Dictated and Signed by: Bubba Hutchinson MD | | Electronically signed: 02/07/2016 12:47 PM | + + + +---------+ + + | Performing | Address | City/State/Zipcode | Phone Number | | Organization | | | | + +---------+ + + | [facility] | | | | + +---------+ + + Comprehensive Metabolic Panel (01/16/2016 1:43 PM PDT) + + + + + [...] + + + + | K | 4.1 | 3.5 - 5.1 | [facility] | | | | | mmol/L | [facility] | | | | | | [facility] | | | | | | [facility] - | | | | | | LABORATORY | | + + + + + + | Cl | 110 (H) | 98 - 109 mmol/L | [...] + + + + | Glucose | 112 (H) | 70 - 109 mg/dL | [facility] | | | | | | [facility] | | | | | | [facility]ICAL | | | | | | CENTER - | | | | | | LABORATORY | | + + + + + + | BUN | 16 | 7 - 18 mg/dL | [facility] | | | | | | [facility] | | | | | | [facility]ICAL | | | | | | CENTER - | | | | | | LABORATORY | | + + + + + + | Creatinine | 0.83 | 0.60 - 1.30 | [facility] | | | | | mg/dL | [facility] | | | | | | MEDICAL | | | | | | CENTER - | | | | | | LABORATORY | | + + + + + + | eGFR if not | >60Comment: GLOMERULAR | >=60 | [facility] | | | | FILTRATION | mL/min/1.73m2 | [facility] | | | [facility] | RATE,ESTIMATED | | MEDICAL | | | | mL/min/1.82h3Nnuo than | | CENTER - | | [...] 3.6 | 3.2 - 5.0 g/dL | [facility] | | | | | | [facility] | | | | | | MEDICAL | | | | | | CENTER - | | | | | | LABORATORY | | + + + + + + | Bilirubin | 0.3 | 0.1 - 1.5 mg/dL | [facility] | | | Total | | | [facility] | | | | | | MEDICAL | | | | | | CENTER - | | | | | | LABORATORY | | + + + + + + | Total | 6.3 | 6.0 - 7.8 g/dL | [facility] | | | Protein | | | [facility] | | | | | | MEDICAL | | | | | | CENTER - | | | | | | LABORATORY | | + + + + + + | AST | 20 | 10 - 42 U/L | [facility] | | | | | | [facility] | | | | | | MEDICAL | | | | | | CENTER - | | | | | | LABORATORY | | + + + + + + | ALT | 14 | 6 - 45 U/L | [facility] [...] + + | Globulin | 2.7 | g/dL | [facility] | | | [...] + + + + | BUN/Creatin | 19.3 | | [facility] | | | ine [...] [address] | [place] | [phone] | | [facility] | | [address] | | | - LABORATORY | | | | + + + + + CEA (01/16/2016 1:43 PM PDT) + +-------+ + + + | Component | Value | Ref Range | Performed | Pathologist | | | | | At | Signature | + +-------+ + + + | CEA | 3.8 | 0.0 - 10.0 | [facility] | | | | | ng/mL | [facility] | | | | | [...] ST. | [address] | [place], [place] | [phone] | | [facility] | | [address] | | | - LABORATORY | | | | + + + + + CBC with Differential (01/16/2016 1:43 PM PDT) + + + + + [...] + + + + | Hemoglobin | 10.1 (L) | 11.5 - 16.0 | [facility] | | | | | g/dL | [facility] | | | | | | MEDICAL | | | | | | CENTER - | | | | | | LABORATORY | | + + + + + + | Hematocrit | 31.1 (L) | 34.0 - 47.0 % | [facility] | | | | | | [facility] | | | | | | MEDICAL | | | | | | CENTER - | | | | | | LABORATORY | | + + + + + + | MCV | 81.5 (L) | 83.0 - 101.0 fL | [facility] | | | | | | [facility] | | | | | | MEDICAL | | | | | | CENTER - | | | | | | LABORATORY | | + + + + + + | MCH | 26.4 (L) | 28.0 - 35.0 pg | [facility] | | | | | | [facility] | | | | | | MEDICAL | | | | | | CENTER - | | | | | | LABORATORY | | + + + + + + | MCHC | 32.3 | 32.0 - 36.0 | [facility] | | | | | g/dL | [facility] | | | | | | MEDICAL | | | | | | CENTER - | | | | | | LABORATORY | | + + + + + + | RDW-CV | 14.6 | <15.0 % | [facility] | | | | | | [facility] | | | | | | MEDICAL | | | | | | CENTER - | | | | | | LABORATORY | | + + + + + + | Platelet | 228 | 140 - 440 K/uL | [facility] [...] + + + + | % | 66.4 | 45.0 - 82.0 % | [facility] [...] + + + + | % | 2.7 [...] + + + + | Absolute | 3.10 [...] | 0.00 | 0.00 - 0.10 | [facility] | | | Basophils | | K/uL [...] [address] | [place] | [phone] | | [facility] | | [address] | | | - LABORATORY | | | | + + + + + documented in this encounter Visit Diagnoses + + | Diagnosis | + + | Rectal cancer (HCC) - Primary Malignant neoplasm of rectum | + + | Iron deficiency anemia due to chronic blood loss Iron deficiency anemia secondary to | | blood loss (chronic) | + + documented in this encounter"
--- OUTSIDE RECORDS SUMMARY | ~2020-02-23 | XMS | Encounter Summary ---
Demographics + + + | Address | [address] [facility] [address] | | | [place] [address] | + + + | Home Phone | | + + + | Preferred Language | Unknown | + + + | Marital Status | Single | + + + | Hoahaoism Affiliation | 1041 | + + + | Race | Unknown | + + + | Ethnic Group | Unknown | + + + Author + + + | Author | [facility] | | | and [place] | + + + | Organization | [facility] | | | [...] Team Providers + +------+ + | Care Assembly Adjuster Name | Role | Phone | + [...] | | | | Procedures | [place], [place] | [address] | | | | | [place] OFFICE | [address] | [facility] [place] | | | | | OUTPATIENT | Phone: | [address] Phone: | | | | | VISIT 25 | [phone] | [phone] | | | | | MINUTES | Fax: | Fax: | | | | | | [phone] | [phone] | +--------+--------+ + + + + Encounter Details +--------+ + + + + | Date | Type | Department | Care Team | Description | +--------+ + + + + | 09/20/ | Hospital | [facility] | Wing Frank | Rectal cancer (HCC) | | 2014 | Encounter | [facility] | MD Casimiro [address] | (Primary Dx) | | | | ONCOLOGY CLINIC [address] | [address] [place] | | | | | [address] [place] | [place] [address] | | | | | [place] [address] | [phone] | | | | | [phone] | | | +--------+ + + + [...] + + + | Blood Pressure | 151/86 | 09/20/2014 3:14 PM | | | | | PST | | + + + + + | Pulse | 92 | 09/20/2014 3:14 PM | | | | | PST | | + + + + + | Temperature | 37.1 C (98.8 F) | 09/20/2014 3:14 PM | | | | | PST | | + + + + + | Respiratory Rate | 18 | 09/20/2014 3:14 PM | | | | | PST | | + + + + + | Oxygen Saturation | 99% | 09/20/2014 3:14 PM | | | | | PST | | + + + + + | Inhaled Oxygen | - | - | | | Concentration | | | | + + + + + | Weight | 105 kg (231 lb 7.7 | 09/20/2014 3:14 PM | | | | oz) | PST | | + + + + + | Height | - | - | | + + + + + | Body Mass Index | 38.1 | 08/03/2014 11:14 AM | | | [...] + + +---------+ + + | | Apply per rectum 3 | 10 g | 3 | 09/17/20 | | | hydrocortisone-pramo | times a day | | | 14 | 4 | | xine (PROCTOFOAM-HC) | | | | | | | rectal | | | | | | | foamIndications: | | | | | | | Proctitis | | | | | | + [...] encounter Progress Notes Wing Frank MD - 09/20/2014 3:18 PM PSTFormatting of this note might be diff erent from the original. Patient is a 49 y.o. female seen today, 09/20/2014, for chemotherapy with capecitabine for r ectal cancer. Today is day 1/week 7 of therapy. Patient complaints: Pararectal pain Symptoms are gradually worsening during the past 24 hours. Advance Directives: not addressed Appropriate portions of the patient's past medical, surgical, family, and social history we re reviewed and updated. Review of Systems Constitutional: Pt reports fatigue. Denies high fevers, shaking chills, anorexia, nausea, v omiting, weight loss, or night sweats. Appetite without changes. Pt states waking up In a sw eat last night , and states this is unusual. Pt states some nausea. Ear, Nose, Mouth, Throat: Denies odynophagia, dysphagia, or tinnitus. Cardiovascular: Denies shortness of breath, dyspnea on exertion, chest pain, palpitations o r orthopnea. Respiratory: Denies cough, hemoptysis, or sputum production. Gastrointestinal: Denies abdominal pain, constipation, diarrhea, melena, or bright red bloo d per rectum. Pt states ongoing diarrhea and constipation, and states yesterday and today sh marco a has had between 4-5 bowel movements. Pt states bright red Blood in her stools but states s he hemorids. Genitourinary: Denies hematuria or dysuria. Pt states on going dysuria but has since gotten better. Musculoskeletal: Denies joint pain or tenderness. Neurologic: Denies headache, visual changes, or numbness/tingling of the extremities. Endocrine: Denies peripheral edema or heat/cold intolerance. Hematologic: Denies spontaneous bruising or bleeding. Integumentary: Denies rash, wounds or other skin concerns. Pain: Denies pain. Objective: BP 151/86 | Pulse 92 | Temp 37.1 C (98.8 F) (Oral) | Resp 18 | Wt 105 kg (231 lb 7.7 oz ) | SpO2 99% General appearance: alert, appears stated age and cooperative Data Review CBC: Lab Results Component Value Date WBC 6.5 09/20/2014 RBC 4.18 09/20/2014 BMP: Lab Results Component Value Date CO2 22* 08/05/2014 BUN 15 08/05/2014 CALCIUM 9.7 08/05/2014 Assessment: Active Problems: 1. Rectal cancer (HCC) Plan: The patient has a documented plan of care to address pain. Okay to begin week 7 of oral Xeloda 2000 mg twice daily. Endorsement of anti-inflammatory rectal appointment for control of proctitis. One-week followup Wing Frank Julee Sloan CMA - 09/20/2014 3:17 PM PSTREVIEW OF SYSTEMS Constitutional: Pt reports fatigue. Denies high fevers, shaking chills, anorexia, nausea, vomiting, weight loss, or night sweats. Appetite without changes. Pt states waking up In a sweat last night , and states this is unusual. Pt states some nausea. Ear, Nose, Mouth, Throat: Denies odynophagia, dysphagia, or tinnitus. Cardiovascular: Denies shortness of breath, dyspnea on exertion, chest pain, palpitations o r orthopnea. Respiratory: Denies cough, hemoptysis, or sputum production. Gastrointestinal: Denies abdominal pain, constipation, diarrhea, melena, or bright red bloo d per rectum. Pt states ongoing diarrhea and constipation, and states yesterday and today s he has had between 4-5 bowel movements. Pt states bright red Blood in her stools but state s she hemorids. Genitourinary: Denies hematuria or dysuria. Pt states on going dysuria but has since edgar en better. Musculoskeletal: Denies joint pain or tenderness. Neurologic: Denies headache, visual changes, or numbness/tingling of the extremities. Endocrine: Denies peripheral edema or heat/cold intolerance. Hematologic: Denies spontaneous bruising or bleeding. Integumentary: Denies rash, wounds or other skin concerns. Pain: Denies pain. Note: Pt Is here for a follow up and labs. My chart: documented in this encounter Plan of Treatment Not on filedocumented as of this encounter Procedures + +--------+ + + + | Procedure Name | Priori | Date/Time | Associated Diagnosis | Comments | | | ty | | | | + +--------+ + + + | CBC W/AUTO | STAT | 09/20/2014 | Rectal cancer | Results for this | | DIFFERENTIAL | | 3:02 PM | (HCC) | procedure are in the | | | | PST | | results section. | + +--------+ + + + documented in this encounter Results CBC w/ Auto Differential (09/20/2014 3:02 PM [...] + | [facility] | [address] | [place], [place] | [phone] | | [facility] | | [address] | | | - LABORATORY | | | | + + + + + | [facility] | [address] | [place], [place] | | | [facility] | | [address] | | | - LABORATORY | | | | + + + + + documented in this encounter Visit Diagnoses + + | Diagnosis | + + | Rectal cancer (HCC) - Primary Malignant neoplasm of rectum | + + documented in this encounter"
--- OUTSIDE RECORDS SUMMARY | ~2020-02-23 | XMS | Encounter Summary ---
Demographics + + + | Address | [address] [facility] [address] | | | [place] [address] | + + + | Home Phone [...] Team Providers + +------+ + | Care [facility] Name | Role | Phone | + +------+ + | Cindy Miramontes MD | PCP | | + +------+ + Reason for Visit + + + | Reason | Comments | + + + | Medication Refill | | + + + Encounter Details +--------+--------+ + + + | Date | Type | Department | Care Team | Description | +--------+--------+ + + + | 09/16/ | Refill | [facility] | Wing Frank | Medication Refill | | 2013 | | [facility] | MD Casimiro [address] | | | | | ONCOLOGY CLINIC [address] | [address] [place] | | | | | [address] [place] | [place] [address] | | | | | [place] [address] | [phone] | | | | | [phone] | | | +--------+--------+ + + + Social History + + [...]
--- OUTSIDE RECORDS SUMMARY | ~2020-02-23 | XMS | Encounter Summary ---
Demographics + + + | Address | [address] [facility] [address] | | | [place] [address] | + + + | Home Phone | | + + + | Preferred Language | Unknown | + + + | Marital Status | Single | + + + | Orthodox Affiliation | 1041 | + + + | Race | Unknown | + + + | Ethnic Group | Unknown | + + + Author + + + | Author | [facility] | | | and [place] | + + + | Organization | [facility] | | | [...] Team Providers + +------+ + | Care Director Telemetry Name | Role | Phone | + [...] | | | | Procedures | [place], [place] | [address] | | | | | [place] OFFICE | [address] | [facility] [place] | | | | | OUTPATIENT | Phone: | [address] Phone: | | | | | VISIT 25 | [phone] | [phone] | | | | | MINUTES | Fax: | Fax: | | | | | | [phone] | [phone] | +--------+--------+ + + + + Encounter Details +--------+ + + + + | Date | Type | Department | Care Team | Description | +--------+ + + + + | 08/31/ | Hospital | [facility] | Wing Frank | Rectal cancer (HCC) | | 2014 | Encounter | [facility] | MD Casimiro [address] | (Primary Dx) | | | | ONCOLOGY CLINIC [address] | [address] [place] | | | | | [address] [place] | [place] [address] | | | | | [place] [address] | [phone] | | | | | [phone] | | | +--------+ + + + [...] evacuation. Two-week followup. Wing Frank Julee Sloan, NIPPLE MAKER - 08/31/2014 4:16 PM PSTREVIEW OF SYSTEMS [...] [address] | [place] | [phone] | | [facility] | | [address] | | | - LABORATORY | | | | + + + + + | [facility] | [address] | [place] | | | [facility] | | [address], [facility] | | | - LABORATORY | | | | + + + + + documented in this encounter Visit Diagnoses + + | Diagnosis | + + | Rectal cancer (HCC) - Primary Malignant neoplasm of rectum | + + documented in this encounter"
--- OUTSIDE RECORDS SUMMARY | ~2020-02-23 | XMS | Encounter Summary ---
Demographics + + + | Address | [address] [facility] [address] | | | [place] [address] | + + + | Home Phone | | + + + | Preferred Language | Unknown | + + + | Marital Status | Single | + + + | Holiness Affiliation | 1041 | + + + [...] Providers + +------+ + | Care Director Of Accounting Name | Role | Phone | + [...] | | Rectal | Frida Thapa | [address] | | | | | cancer (HCC) | MD [address] | [place], | | | | | Procedures | [address] | [place] [address] | | | | | CT | [place], | Phone: | | | | | Treatment | [place] [address] | [phone] | | | | | Plan Complex | Phone: | Fax: | | | | | CHG | [phone] | [phone] | | | | | RESPIRATORY | Fax: | | | | | | MOTION | [phone] | | | | | | MANAGEMENT | | | | | | | SIMULATION | | | +--------+--------+ + + + + Diagnostic/Screening (Routine) +--------+--------+ + + + + | Status | Reason | Specialty | Diagnoses / | Referred By | Referred To | | | | | Procedures | Contact | Contact | +--------+--------+ + + + + | Closed | | Radiology | Diagnoses | Shilaegaddy, | [facility] | | | | | Rectal | Frida M, | [address] | | | | | cancer (HCC) | MD [address] | [place], | | | | | Procedures | [address] | [place] | | | | | MRI Pelvis | [place], | [address] | | | | | w wo | [place] [address] | Phone: | | | | | Contrast | Phone: | [phone] | | | | | | [phone] | Fax: | | | | | | Fax: | [phone] | | | | | | [phone] | | +--------+--------+ + + + + Reason for Visit Evaluate & Treat (Routine) +--------+--------+ + + + + | Status | Reason | Specialty | Diagnoses / | Referred By | Referred To | | | | | Procedures | Contact | Contact | +--------+--------+ + + + + | Closed | | Radiation | Diagnoses | Markie, | Azra, | | | | Oncology | Rectal | MD Ronaldo | Frida Thapa MD | | | | | cancer (HCC) | [address] | [address] | | | | | | [address] | [address] | | | | | CONSULT/RECT | [facility] [address] | [place], | | | | | [place] | [place], [place] | [place] [address] | | | | | ([place]URN) | [address] | Phone: | | | | | Procedures | Phone: | [phone] | | | | | [place] OFFICE | [phone] | Fax: | | | | | OUTPATIENT | Fax: | [phone] | | | | | VISIT 25 | [phone] | | | | | | MINUTES NEW | | | | | | | PATIENT | | | +--------+--------+ + + + + Encounter Details +--------+ + + + + | Date | Type | Department | Care Team | Description | +--------+ + + + + | 08/03/ | Hospital | [facility] | Frida Oquendo | Rectal cancer (HCC) | | 2013 | Encounter | [facility] | MD Alanis [address] | (Primary Dx) | | | | ONCOLOGY [address] | [facility] [place] | | | | | [address], | [address] | | | | | [place] [address] | | | | | | [phone] | | | +--------+ + + + [...] on filedocumented as of this encounter Results MRI Pelvis w wo [...] wall is | | seen with intermediate [id number], mildly increased T2 signal, and patchy heterogeneous [...] + | MISCELLANEOUS LAB | | | [phone] | + +---------+ + + | MISCELANIOUS LAB | | | [phone] | + +---------+ + + CT Treatment Plan Complex (08/05/2014 11:49 AM [...]
--- OUTSIDE RECORDS SUMMARY | ~2020-02-23 | XMS | Encounter Summary ---
Demographics + + + | Address | [address] [facility] [address] | | | [place] [address] | + + + | Home Phone | | + + + | Preferred Language | Unknown | + + + | Marital Status | Single | + + + | Christianity Affiliation | 1041 | + + + | Race | Unknown | + + + | Ethnic Group | Unknown | + + + Author + + + | Author | [facility] | | | and [place] | + + + | Organization | [facility] | | | and [...] Team Providers + +------+ + | Care Claim Auditor Name | Role | Phone | + [...] | | cancer (HCC) | Wing | [place], | | | | | Procedures | MD Casimiro | [place] [address] | | | | | CT Chest | [address] | Phone: | | | | | Abdomen | [place] | [phone] | | | | | Pelvis w | [place], [place] | Fax: | | | | | Contrast | [address] | [phone] | | | | | | Phone: | | | | | | | [phone] | | | | | | | Fax: | | | | | | | [phone] | | +--------+--------+ + + + + [...] [address] [place] | | | | | [place] OFFICE | [address] | [place], [place] | | | | | OUTPATIENT | Phone: | [address] Phone: | | | | | VISIT 25 | [phone] | [phone] | | | | | MINUTES | Fax: | Fax: | | | | | | [phone] | [phone] | +--------+--------+ + + + + Encounter Details +--------+ + + + + | Date | Type | Department | Care Team | Description | +--------+ + + + + | 01/15/ | Hospital | [facility] | Wing Frank | Rectal cancer (HCC) | | 2016 | Encounter | [facility] | MD Casimiro [address] | (Primary Dx); [place] | | | | ONCOLOGY CLINIC [address] | [facility] | 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 Hem-Onc Progress Note [facility] Pt. Name/Age/: Fang Stephenson 50 y.o. 1965 Med. Record Number: [id number] Date of admission: 01/16/2016 Assessment and plan: [...] Electronically signed by: Wing Frank, 01/16/2016 14:31 [facility] TIME SPENT 30 MIN. > 50% AT BEDSIDE, WITH FAMILY/PATIENT IN CARE AND SENIOR AIR DIRECTOR ON UNIT AND CO ORDINATION OF CARE Portions of this chart may have been created with Ritot voice recognition software. Occasi onal wrong-word or [...] 16 | 7 - 18 mg/dL | [facility] | | | | | | [facility] | | | | | | MEDICAL | | | | | | CENTER - | | | | | | LABORATORY | | + + + + + + | Creatinine | 0.83 | 0.60 - 1.30 | [place] | | | | | mg/dL | [facility] | | | | | | MEDICAL | | | | | | CENTER - | | | | | | LABORATORY | | + + + + + + | eGFR if not | >60Comment: GLOMERULAR | >=60 | [place] | | | | FILTRATION | mL/min/1.73m2 | [facility] | | | BENINESE | RATE,ESTIMATED | | MEDICAL | | | | mL/min/1.13i5Hodq than | | CENTER - | | [...] [address] | [place] | [phone] | | [facility] | | [address] | | | - LABORATORY | | [...] | | | | ng/mL | [facility] | | | | [...] ST. | [address] | [place], [place] | [phone] | | [facility] | | [address] | | | - LABORATORY | | [...] [address] | [place] | [phone] | | [facility] | | [address] | | | - LABORATORY | | [...]
--- OUTSIDE RECORDS SUMMARY | ~2020-02-23 | XMS | Encounter Summary ---
Demographics + + + | Address | [address] [facility] [address] | | | [place] [address] | + + + | Home Phone | | + + + | Preferred Language | Unknown | + + + | Marital Status | Single | + + + | Mormon Affiliation | 1041 | + + + | Race | Unknown | + + + | Ethnic Group | Unknown | + + + Author + + + | Author | [facility] | | | and [place] | + + + | Organization | [facility] | | [...] Team Providers + +------+ + | Care Wall To Wall Carpet Installer Name | Role | Phone | + +------+ + | Cindy Miramontes MD | PCP | | + +------+ + Reason for Visit +--------+ + | Reason | Comments | +--------+ + | Ostomy | | +--------+ + Encounter Details +--------+---------+ + + + | Date | Type | Department | Care Team | Description | +--------+---------+ + + + | 01/14/ | Office | [facility] | Joseph Blancas, | Rectal cancer (HCC) | | 2015 | Visit | [address] | CIVIL CLERK [address] | (Primary Dx); | | | | [address], | [place], [place] | Attention to | | | | [place] [address] | [address] | ileostomy (HCC); | | | | [phone] | | Fitting and | | | | | | adjustment of other | | | | | | gastrointestinal | | | | | | appliance and | | | | | | device(V53.59); | | | | | | Other specified | | | | | | counseling | +--------+---------+ + + + Social History + + [...] + + + | Blood Pressure | 100/60 | 01/14/2015 10:48 AM | | | | | PDT | | + + + + + | Pulse | 66 | 01/14/2015 10:48 AM | | | | | PDT | | + + + + + | Temperature | 36.9 C (98.4 F) | 01/14/2015 10:48 AM | | | | | PDT | | + + + + + | Respiratory Rate | 16 | 01/14/2015 10:48 AM | | | | | PDT | | + + + + + | Oxygen Saturation | - | - | | + [...] + + + documented in this encounter Patient Instructions Patient Instructions Joseph Blancas ARNP - 01/14/2015 12:36 PM PDTContinue current ostomy appliance care. documented in this encounter Progress Notes Joseph Blancas ARNP - 01/14/2015 12:28 PM PDTFormatting of this note might be different f rom the original. Subjective: Patient ID: Fang Stephenson is a 49 y.o. female. Ostomy Patient's medications, allergies, past medical, surgical, social and family histories were reviewed and updated as appropriate. Review of Systems Objective: Physical Exam Constitutional: She is oriented to person, place, and time. She appears well-developed and well-nourished. Cardiovascular: Regular rhythm. Pulmonary/Chest: Effort normal. Neurological: She is alert and oriented to person, place, and time. Skin: Skin is warm and dry. Assessment: S:Re ports a history of rectal cancer for which he underwent a coloanal anastomosis and div erting loop ileostomy on November 23 in [place]. She states that from the very beginning, postoperatively, there has been a problem with maintaining a good appliance seal that has re sulted in problems with leakage and skin irritation. Prior to discharge the ostomy nurse at the [facility] had her using a 4 x 4 secured in barrier and a one-piece pouch with i nstructions to change every 2 days. She reports that this has helped and that she has not h ad the problems as before with leakage. She anticipates takedown of the ileostomy in about 6 months. O: 49 year old female who presents in no apparent or stated discomfort. On examination the re is a one-piece ostomy appliance in place in the right lower quadrant. Upon removing the appliance there is a slightly oval flat red viable stoma. There is approximately a 0.3 cm a zenon from the 3:00 to 9:00 position of mucosal irritation. After preparing the surrounding p eristomal skin, which is intact, a 4 x 4 barrier was applied followed by a new one piece ro liance. Because of her complaint that it was difficult for her to put her on appliance on I showed her how to fold the pouch in half, place it at the base of the stoma and then drop i t over the top. I also discussed diet regarding an ileostomy stressing the importance of ad ding high-fiber foods one at a time in the importance of chewing thoroughly. 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 Plan: Continue to change the appliance every 2 days as instructed using the 4 x 4 barrier with th e one-piece appliance. documented in this encounter Plan of Treatment Not on filedocumented as of this encounter Visit Diagnoses + + | Diagnosis | + + | Rectal cancer (HCC) - Primary Malignant neoplasm of rectum | + + | Attention to ileostomy (HCC) Attention to ileostomy | + + | Fitting and adjustment of other gastrointestinal appliance and device(V53.59) Fitting | | and adjustment of other gastrointestinal appliance and device | + + | Other specified counseling | + + documented in this encounter"
--- OUTSIDE RECORDS SUMMARY | ~2020-02-23 | XMS | Encounter Summary ---
Demographics + + + | Address | [address] [facility] [address] | | | [place] [address] | + + + | Home Phone [...] Team Providers + +------+ + | Care Patrol Conductor Name | Role | Phone | + +------+ + | Cindy Miramontes MD | PCP | | + +------+ + Encounter Details +--------+ + + + + | Date | Type | Department | Care Team | Description | +--------+ + + + + | 02/21/ | [facility] | [facility] | Wing Frank | Rectal cancer (HCC) | | 2015 | Encounter | [facility] | MD Casimiro [address] | | | | | [facility] CL[facility] [address] | [address] | | | | | [address] | [place] [address] | | | | | [place] [address] | [phone] | | | | | [phone] | | | +--------+ + + + [...] + + + | Blood Pressure | 109/72 | 02/21/2015 9:29 AM | | | | | PDT | | + + + + + | Pulse | 86 | 02/21/2015 9:29 AM | | | | | PDT | | + + + + + | Temperature | 36.8 C (98.2 F) | 02/21/2015 9:29 AM | | | | | PDT | | + + + + + | Respiratory Rate | 18 | 02/21/2015 9:29 AM | | | | | PDT | | + + + + + | Oxygen Saturation | 98% | 02/21/2015 9:29 AM | | | | | PDT | | + + + + + | Inhaled Oxygen | - | - | | | Concentration | | | | + + + + + | Weight | 99.7 kg (219 lb 12.8 | 02/21/2015 9:29 AM | | | | oz) | PDT | | + + + + + | Height | - | - | | + + + + + | Body Mass Index | 36.18 | 01/31/2015 11:35 AM | | | [...] encounter Progress Notes Wing Frank MD - 02/21/2015 9:51 AM PDTFormatting of this note might be diff erent from the original. Patient is a 49 y.o. female seen today, 02/21/2015, for chemotherapy with CapOx for rectal c acner. Today is day 1/cycle 2 of therapy. Patient complaints: weight gain Symptoms are stable during the past 24 hours. Advance Directives: not addreseed Appropriate portions of the patient's past medical, surgical, family, and social history we re reviewed and updated. Review of Systems Constitutional: Denies fatigue. Denies high fevers, shaking chills, anorexia, nausea, vomit ing, weight loss, or night sweats. Appetite without changes. Ear, Nose, Mouth, Throat: Denies odynophagia, dysphagia. Pt reports a day and half of tinni tus in the right ear. Cardiovascular: Denies shortness of breath, dyspnea on [...] skin concerns. Pain: Denies pain. Objective: BP 109/72 | Pulse 86 | Temp(Src) 36.8 C (98.2 F) (Oral) | Resp 18 | Wt 99.7 kg (219 lb 12.8 oz) | SpO2 98% General appearance: alert, appears stated age and cooperative Abdomen: soft, non-tender; bowel sounds normal; no masses, no organomegaly Data Review CBC: Lab Results Component Value Date WBC 4.5 02/21/2015 RBC 3.84 02/21/2015 BMP: Lab Results Component Value Date CO2 24 02/21/2015 BUN 13 02/21/2015 CALCIUM 9.3 02/21/2015 Assessment: Active Problems: 1. Rectal cancer (HCC) Plan: The patient has a documented plan of care to address pain. 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 We discussed tactics to help avoid cold and to use warming should neuropathic sympt oms ensue. Go ahead with cycle #2 of therapy. We discussed patient's upcoming visit to [place] for r estaging in anticipation of reversal of ileostomy. Wing Frank Leah Rodriguez, KENNEL HAND - 02/21/2015 9:30 AM PDTREVIEW OF SYSTEMS Constitutional: Denies fatigue. Denies high fevers, shaking chills, anorexia, nausea, vomit ing, weight loss, or night sweats. Appetite without changes. Ear, Nose, Mouth, Throat: Denies odynophagia, dysphagia. Pt reports a day and half of tinni tus in the right ear. Cardiovascular: Denies shortness of breath, dyspnea on [...] concerns. Pain: Denies pain. Note: Pt is her for tx and labs. Pt states a possible blockage that occurred a saturday ca using blisters and erythema with swelling, this is were the ileostomy is. My chart: documented in this encounter Plan of Treatment Not on filedocumented as of this encounter Procedures + +--------+ + + + | Procedure Name | Priori | Date/Time | Associated Diagnosis | Comments | | | ty | | | | + +--------+ + + + | CBC WITH | STAT | 02/21/2015 | Rectal cancer | Results for this | | DIFFERENTIAL | | 9:14 AM | (HCC) | procedure are in the | | | | PDT | | results section. | + +--------+ + + + | LACTATE | STAT | 02/21/2015 | Rectal cancer | Results for this | | DEHYDROGENASE | | 9:14 AM | (HCC) | procedure are in the | | | | PDT | | results section. | + +--------+ + + + | CEA | STAT | 02/21/2015 | Rectal cancer | Results for this | | | | 9:14 AM | (HCC) | procedure are in the | | | | PDT | | results section. | + +--------+ + + + | COMPREHENSIVE | STAT | 02/21/2015 | Rectal cancer | Results for this | | METABOLIC PANEL | | 9:14 AM | (HCC) | procedure are in the | | | | PDT | | results section. | + +--------+ + + + documented in this encounter Results CEA (02/21/2015 9:14 AM PDT) + +-------+ + + + | Component | Value | Ref Range | Performed | Pathologist | | | | | At | Signature | + +-------+ + + + | CEA | 4.3 | 0.0 - 10.0 | [facility] | [...] ST. | [address] | [place], [place] | [phone] | | [facility] | | [address] | | | - LABORATORY | | | | + + + + + CBC with Differential (02/21/2015 9:14 AM PDT) + + + + + [...] + + + + | RBC | 3.84 | 3.70 - 5.20 | [facility] | | | | | M/uL | [facility] | | | | | | MEDICAL | | | | | | CENTER - | | | | | | LABORATORY | | + + + + + + | Hemoglobin | 11.1 (L) | 11.5 - 16.0 | [facility] | | | | | g/dL | [facility] | | | | | | MEDICAL | | | | | | CENTER - | | | | | | LABORATORY | | + + + + + + | Hematocrit | 33.2 (L) | 34.0 - 47.0 % | [...] + + + + | MCH | 29.0 | 28.0 - 35.0 pg | [facility] | | | | | | [facility] | | | | | | MEDICAL | | | | | | CENTER - | | | | | | LABORATORY | | + + + + + + | MCHC | 33.5 | 32.0 - 36.0 | [facility] | [...] + + + + | Platelet | 186 | 140 - 440 K/uL | [facility] [...] + + + + | % | 71.6 | 45.0 - 82.0 % | [facility] | | | Neutrophils | | | [facility] | | | | | | MEDICAL | | | | | | CENTER - | | | | | | LABORATORY | | + + + + + + | % | 13.9 (L) | 20.0 - 45.0 % | [facility] | | | Lymphocytes | | | [facility] | | | | | | MEDICAL | | | | | | CENTER - | | | | | | LABORATORY | | + + + + + + | % Monocytes | 10.2 | 4.0 - 12.0 % | [facility] | | | | | | [facility] | | | | | | MEDICAL | | | | | | CENTER - | | | | | | LABORATORY | | + + + + + + | % | 3.6 | 0.0 - 5.0 % | [facility] [...] + + + + | Absolute | 3.20 | 1.80 - 8.50 | [facility] | | | Neutrophils | | K/uL | [facility] | | | | | | MEDICAL | | | | | | CENTER - | | | | | | LABORATORY | | + + + + + + | Absolute | 0.60 | 0.60 - 3.20 | [facility] | [address] | [place] | [phone] | | [facility] | | [address] | | | - LABORATORY | | | | + + + + + Lactate Dehydrogenase (02/21/2015 9:14 AM PDT) + +---------+ + + + | Component | Value | Ref Range | Performed | Pathologist | | | | | At | Signature | + +---------+ + + + | LDH TOTAL | 192 (H) | 91 - 180 U/L | [facility] | | | | [...] + | [facility] | [address] | [place] | [phone] | | [facility] | | [address] | | | - LABORATORY | | | | + + + + + Comprehensive Metabolic Panel (02/21/2015 9:14 AM PDT) + + + + + [...] + + | K | 4.0 | 3.5 - 5.1 | [facility] | | | | | mmol/L | [...] + + + + | Glucose | 182 (H) | 70 - 109 mg/dL | [facility] | | | | | | [facility] | | | | | | MEDICAL | | | | | | CENTER - | | | | | | LABORATORY | | + + + + + + | BUN | 13 | 7 - 18 mg/dL | [facility] | | | | | | [facility] | | | | | | MEDICAL | | | | | | CENTER - | | | | | | LABORATORY | | + + + + + + | Creatinine | 0.97 | 0.60 - 1.30 | [facility] | [...] | | FILTRATION | mL/min/1.73m2 | [facility] | | | FIJIAN | RATE,ESTIMATED | | MEDICAL | | | | mL/min/1.12e6Xhkm than | | CENTER - | | [...] | 9.3 | 8.3 - 10.5 | [facility] | | | | | mg/dL | [facility] | | | | | | MEDICAL | | | | | | CENTER - | | | | | | LABORATORY | | + + + + + + | Albumin | 3.6 | 3.2 - 5.0 g/dL | [facility] | | | | | | [facility] | | | | | | MEDICAL | | | | | | CENTER - | | | | | | LABORATORY | | + + + + + + | Bilirubin | 0.6 | 0.1 - 1.5 mg/dL | [facility] | | | Total | | | [facility] | | | | | | MEDICAL | | | | | | CENTER - | | | | | | LABORATORY | | + + + + + + | Total | 6.5 | 6.0 - 7.8 g/dL | [facility] | | | Protein | | | [facility] | | | | | | MEDICAL | | | | | | CENTER - | | | | | | LABORATORY | | + + + + + + | AST | 35 | 10 - 42 U/L | [facility] | | | | | | [facility] | | | | | | MEDICAL | | | | | | CENTER - | | | | | | LABORATORY | | + + + + + + | ALT | 37 | 6 - 45 U/L | [facility] | | | | | | [facility] | | | | | | MEDICAL | | | | | | CENTER - | | | | | | LABORATORY | | + + + + + + | Alkaline | 60 | 40 - 110 U/L | [facility] | | | Phosphatase | | | [facility] | | | | | | MEDICAL | | | | | | CENTER - | | | | | | LABORATORY | | + + + + + + | Globulin | 2.9 | g/dL | [facility] | | | | | | [facility] | | | | | | MEDICAL | | | | | | CENTER - | | | | | | LABORATORY | | + + + + + + | Albumin/Nicol | 1.2 | | [facility] | | | bulin Ratio | | | [facility] | | | | | | MEDICAL | | | | | | CENTER - | | | | | | LABORATORY | | + + + + + + | BUN/Creatin | 13.4 | | [facility] | | | ine [...] [address] | [place] | [phone] | | [facility] | | [address] | | | - LABORATORY | | | | + + + + + documented in this encounter Visit Diagnoses + + | Diagnosis | + + | Rectal cancer (HCC) Malignant neoplasm of rectum | + + documented in this encounter"
--- OUTSIDE RECORDS SUMMARY | ~2020-02-23 | XMS | Encounter Summary ---
Demographics + + + | Address | [address] [facility] [address] | | | [place] [address] | + + + | Home Phone [...] | Author | [facility] | | | and [place] | + + + | Organization | [facility] | | | and [...] Team Providers + +------+ + | Care Computer System Specialist Name | Role | Phone | [...] | +--------+ + + + + | 03/15/ | Telephone | [facility]ACEL[facility] LAO | [facility] | Other | | 2014 | | [facility] | MD Casimiro [address] | | | | | [facility] CL[facility] [address] | [address] [place] | | | | | [address] [place] | [place] [address] | | | | | [place] [address] | [phone] | | | | | [phone] | | | +--------+ + + + [...]
--- OUTSIDE RECORDS SUMMARY | ~2020-02-23 | XMS | Encounter Summary ---
Demographics + + + | Address | [address] [facility] | | | [place] [address] | + + + | Home Phone [...] Team Providers + +------+ + | Care Nutrition Manager Name | Role | Phone | [...] Closed | | Radiology | Diagnoses | [place] | [address] | | | | | CA of | MD Ronaldo | Breann [address]augh | | | | | rectum (HCC) | [address] | [place], | | | | | Procedures | [address] | [place] [address] | | | | | CT Chest | [address] | Phone: | | | | | Abdomen | [place], [place] | [phone] | | | | | Pelvis w | [address] | Fax: | | | | | Contrast | Phone: | [phone] | | | | | | [phone] | | | | | | | Fax: | | | | | | | [phone] | | +--------+--------+ + + + + Reason for Visit Diagnostic/Screening (Routine) +--------+--------+ + + + + | Status | Reason | Specialty | Diagnoses / | Referred By | Referred To | | | | | Procedures | Contact | Contact | +--------+--------+ + + + + | Closed | | Radiology | Diagnoses | [place], | [address] | | | | | CA of | MD Ronaldo | [address] [address] | | | | | rectum (HCC) | [address] | [place], | | | | | Procedures | [address] | [place] [address] | | | | | CT Chest | [address] | Phone: | | | | | Abdomen | [place], [place] | [phone] | | | | | Pelvis w | [address] | Fax: | | | | | Contrast | Phone: | [phone] | | | | | | [phone] | | | | | | | Fax: | | | | | | | [phone] | | +--------+--------+ + + + + Encounter Details +--------+ + + + + | Date | Type | Department | Care Team | Description | +--------+ + + + + | 11/22/ | Hospital | [facility] | Ronaldo Tolbert, | CA of rectum (HCC) | | 2017 | Encounter | [facility] [address] | [address] | | | | | [address], | [address] | | | | | [place] [address] | [place], [place] | | | | | [phone] | [address] | | | | | | [phone] | | | | | | | | +--------+ + + + [...] + +--------+ + + + | CT CHEST ABDOMEN | Routin | 11/22/2016 | CA of rectum (HCC) | Results for this | | PELVIS W CONTRAST | e | 4:37 PM | | procedure are in the | | | | PST | | results section. | + +--------+ + + + | POC BLOOD GASES | Routin | 11/22/2016 | | Results for this | | | e | 4:27 PM | | procedure are in the | | | | PST | | results section. | + +--------+ + + + documented in this encounter Results CT Chest Abdomen Pelvis w Contrast (11/22/2016 4:37 PM PST) + + | Specimen | + + | | + + + + + | Narrative | Performed At | + + + | CT CHEST ABDOMEN AND PELVIS WITH CONTRAST CLINICAL INFORMATION: | [facility] | | Follow up rectal cancer. COMPARISON: MRpelvis dated 08/10/2014; | | | CTCAP WWO dated 02/07/2016 PROCEDURE: Axial images through the | | | chest, abdomen and pelvis after the administration of 100 ml | | | Omnipaque 350 intravenous contrast. Multiplanar reconstructions. | | | At least one of the following CT dose optimization techniques were | | | used: Automated exposure control; Adjustment of mA and/or kV according | | | to patient size; Use of iterative reconstruction technique. | | | FINDINGS: CHEST Lungs, Pleura and Airways: No significant pulmonary | | | abnormality. No airway narrowing or obstruction. No pleural effusion | | | or pneumothorax. Mediastinum: No significant pericardial, great | | | vessel or esophageal abnormality. No mediastinal mass. Lymph Nodes: | | | No mediastinal, hilar, supraclavicular or axillary adenopathy. | | | ABDOMEN Liver and Biliary: No gallbladder or biliary abnormality. No | | | significant liver abnormality. Pancreas, Spleen and Adrenals: No | | | pancreatitis or pancreatic mass. No splenomegaly, splenic mass or | | | splenic hemorrhage. No significant adrenal abnormality. Kidneys: | | | Marked atrophy of the right kidney. 0.8 cm exophytic lesion | | | projecting off the posterior aspect of the mid left kidney, image 83, | | | is unchanged. No hydronephrosis. ABDOMEN AND PELVIS Bowel: | | | Large and small bowel are normal in caliber. Fucl-xk-ctie ileal | | | anastomosis is unchanged from the prior examination. Vessels: No | | | significant abnormality in the aorta, its proximal branches or the | | | iliac arteries. No significant abnormality in the portal veins, | | | mesenteric veins or systemic veins. Lymph Nodes: No gastrohepatic, | | | portahepatis, paraaortic, retrocrural or mesenteric adenopathy. No | | | iliac, obturator or inguinal adenopathy. Peritoneum and | | | Retroperitoneum: No intraperitoneal free air, ascites or peritoneal | | | mass. No significant retroperitoneal abnormality. PELVIS | | | Genitourinary: No hydroureter. No ureteral or bladder calculus. No | | | significant uterine or adnexal abnormality. BODY WALL Soft | | | Tissues: Right upper quadrant anterior abdominal hernia measures 2.9 | | | cm and contains loops of small bowel without evidence of obstruction | | | or strangulation. Bones: No acute fracture or vertebral end plate | | | destruction. No lytic or blastic lesion. IMPRESSION- Summary of | | | target lesions: None. Comments: The radiologist signature | | | directly following this report is the reading radiologist and billing | | | locum provider for this service. The radiologist placing the | | | final signature did not dictate or review this study, but was | | | required to sign for administrative purposes only. Signed by: | | | Carlito Mccormick Report sent: 11/23/2016 9:37:00 AM Dictated and | | | Signed by: Bubba Hutchinson MD Electronically signed: 11/23/2016 9:47 | | | AM | | + + + + + | Procedure Note | + + | Gianni, Rad Results In - 11/23/2016 9:[address] CHEST ABDOMEN AND PELVIS WITH | | CONTRAST CLINICAL INFORMATION:Follow up rectal cancer. COMPARISON:MRpelvis dated | | 08/10/2014; CTCAP WWO dated 02/07/2016 PROCEDURE:Axial images through the chest, abdomen | | and pelvis after theadministration of 100 ml Omnipaque 350 intravenous | | contrast.Multiplanar reconstructions. At least one of the following CT dose optimization | | techniques wereused: Automated exposure control; Adjustment of mA and/or kV accordingto | | patient size; Use of iterative reconstruction technique. FINDINGS:CHESTLungs, Pleura | | and Airways: No significant pulmonary abnormality. Noairway narrowing or obstruction. No | | pleural effusion or pneumothorax.Mediastinum: No significant pericardial, great vessel | | or esophagealabnormality. No mediastinal mass.Lymph Nodes: No mediastinal, hilar, | | supraclavicular or axillaryadenopathy. ABDOMENLiver and Biliary: No gallbladder or | | biliary abnormality. Nosignificant liver abnormality.Pancreas, Spleen and Adrenals: No | | pancreatitis or pancreatic mass. Nosplenomegaly, splenic mass or splenic hemorrhage. No | | significantadrenal abnormality.Kidneys: Marked atrophy of the right kidney. 0.8 cm | | exophytic lesionprojecting off the posterior aspect of the mid left kidney, image 83,is | | unchanged. No hydronephrosis. ABDOMEN AND PELVISBowel: Large and small bowel are normal | | in caliber. Snfh-uu-nqob ilealanastomosis is unchanged from the prior | | examination.Vessels: No significant abnormality in the aorta, its proximal branchesor | | the iliac arteries. No significant abnormality in the portal veins,mesenteric veins or | | systemic veins.Lymph Nodes: No gastrohepatic, portahepatis, paraaortic, retrocrural | | ormesenteric adenopathy. No iliac, obturator or inguinal adenopathy.Peritoneum and | | Retroperitoneum: No intraperitoneal free air, ascites orperitoneal mass. No significant | | retroperitoneal abnormality. PELVISGenitourinary: No hydroureter. No ureteral or bladder | | calculus. Nosignificant uterine or adnexal abnormality. BODY WALLSoft Tissues: Right | | upper quadrant anterior abdominal hernia measures2.9 cm and contains loops of small | | bowel without evidence ofobstruction or strangulation.Bones: No acute fracture or | | vertebral end plate destruction. No lyticor blastic lesion. IMPRESSION-Summary of target | | lesions:None. Comments:The radiologist signature directly following this report is the | | readingradiologist and billing locum provider for this service.The radiologist placing | | the final signature did not dictate or review thisstudy, but was required to sign for | | administrative purposes only.Signed by: Carlito MccormickReport sent: 11/23/2016 9:37:00 | | AMDictated and Signed by: Bubba Hutchinson MD Electronically signed: 11/23/2016 9:47 AM | |Kidneys: Marked atrophy of the right kidney. 0.8 cm exophytic lesion | |projecting off the posterior aspect of the mid left kidney, image 83, | |is unchanged. No hydronephrosis. | | | |ABDOMEN AND PELVIS | |Bowel: Large and small bowel are normal in caliber. Mkbo-hx-pibr ileal | |anastomosis is unchanged from the prior examination. | |Vessels: No significant abnormality in the aorta, its proximal branches | |or the iliac arteries. No significant abnormality in the portal veins, | |mesenteric veins or systemic veins. | |Lymph Nodes: No gastrohepatic, portahepatis, paraaortic, retrocrural or | |mesenteric adenopathy. No iliac, obturator or inguinal adenopathy. | |Peritoneum and Retroperitoneum: No intraperitoneal free air, ascites or | |peritoneal mass. No significant retroperitoneal abnormality. | | | |PELVIS | |Genitourinary: No hydroureter. No ureteral or bladder calculus. No | |significant uterine or adnexal abnormality. | | | |BODY WALL | |Soft Tissues: Right upper quadrant anterior abdominal hernia measures | |2.9 cm and contains loops of small bowel without evidence of | |obstruction or strangulation. | |Bones: No acute fracture or vertebral end plate destruction. No lytic | |or blastic lesion. | | | |IMPRESSION- | |Summary of target lesions: | |None. | | | |Comments: | | | |The radiologist signature directly following this report is the reading | |radiologist and billing locum provider for this service. | | | |The radiologist placing the final signature did not dictate or review this | |study, but was required to sign for administrative purposes only. | | | |Signed by: Carlito Mccormick | |Report sent: 11/23/2016 9:37:00 AM | | | |Dictated and Signed by: Bubba Hutchinson MD | | Electronically signed: 11/23/2016 9:47 AM | + + + +---------+ + + | Performing | Address | City/State/Zipcode | Phone Number | | Organization | | | | + +---------+ + + | [facility] | | | | + +---------+ + + POC Blood Gases (11/22/2016 4:27 PM PST) + +-------+ + + + | Component | Value | Ref Range | Performed | Pathologist | | | | | At | Signature | + +-------+ + + + | Specimen | Vein | | [facility] | | | Source | | | [facility] | | | | | | MEDICAL | | | | | | CENTER - | | | | | | LABORATORY | | + +-------+ + + + | Creatinine, | 0.9 | 0.5 - 1.2 mg/dL | [facility] | | | POC | | | [facility] | | | | | | MEDICAL | | | | | | CENTER - | | | | | | LABORATORY | | + +-------+ + + + | eGFR if not | >60 | >=60 | [facility] | | | | | mL/min/1.73m2 | [facility] | | | [place] | | | MEDICAL | | | [...] ST. | [address] | [place] | [phone] | | [facility] | | [address] | | | - LABORATORY | | | | + + + + + documented in this encounter Visit Diagnoses + + | Diagnosis | + + | CA of rectum (HCC) Malignant neoplasm of rectum | + + documented in this encounter Administered Medications + +--------+ +---------+------+------+ | Medication Order | MAR | Action | Dose | Rate | Site | | | Action | Date | | | | + +--------+ +---------+------+------+ | iohexol (OMNIPAQUE 350) 350 | Given | 11/22/19 | 100 mLs | | | | mg/mL injection 100 mL 100 mL, | | 17 4:38 | | | | | Intravenous, ONCE PRN, Other, for | | PM PST | | | | | CT contrast study, Starting Magui | | | | | | | 11/22/16 at 1634, For 1 dose, | | | | | | | Radiology | | | | | | + +--------+ +---------+------+------+ +---+---+ | | | +---+---+ documented in this encounter"
--- OUTSIDE RECORDS SUMMARY | ~2020-02-23 | XMS | Encounter Summary ---
Demographics + + + | Address | [address] [facility] [address] | | | [place] [address] | + + + | Home Phone | | + + + | Preferred Language | Unknown | + + + | Marital Status | Single | + + + | Lutheran Affiliation | 1041 | + + + | Race | Unknown | + + + | Ethnic Group | Unknown | + + + Author + + + | Author | [facility] | | | and [place] | + + + | Organization | [facility] | | | [...] Team Providers + +------+ + | Care Vehicle Detailer Name | Role | Phone | + +------+ + | Cindy Miramontes MD | PCP | | + +------+ + Reason for Referral Evaluate & Treat (Routine) +--------+ + + + + + | Status | Reason | Specialty | Diagnoses / | Referred By | Referred To | | | | | Procedures | Contact | Contact | +--------+ + + + + + | Closed | Specialty | Nutrition | Diagnoses | [facility] | | | Services | | Malignant | Infusion | Nutrition | | | Required | | neoplasm of | [address] | [address] | | | | | rectum (HCC) | [place] | [address] | | | | | | [place], [place] | [place], | | | | | | [address] | [place] [address] | | | | | | Phone: | Phone: | | | | | | [phone] | [phone] | | | | | | Fax: | Fax: | | | | | | [phone] | [phone] | +--------+ + + + + + Reason for Visit + + + | Reason | Comments | + + + | IDT Note | | + + + Encounter Details +--------+ + + + + | Date | Type | Department | Care Team | Description | +--------+ + + + + | 01/20/ | Telephone | [facility] | Naa Santiago, | IDT Note | | 2014 | | MED CTR CHEMO | RN | | | | | INFUSION [address] | | | | | | [address] [place], | | | | | | [place] [address] | | | | | | [phone] | | | +--------+ + + + [...] of this encounter Plan of Treatment + + +--------+ + + | Name | Type | Priori | Associated Diagnoses | Order Schedule | | | | ty | | | + + +--------+ + + | Ambulatory referral | Outpatient | Routin | Malignant neoplasm | Ordered: 01/20/2015 | | to Nutrition | Referral | e | of rectum (HCC) | | | Services | | | | | + + +--------+ + + documented as of this encounter Visit Diagnoses + + | Diagnosis | + + | Malignant neoplasm of rectum (HCC) - Primary Malignant neoplasm of rectum | + + documented in this encounter"
--- OUTSIDE RECORDS SUMMARY | ~2020-02-23 | XMS | Encounter Summary ---
Demographics + + + | Address | [address] [facility] [address] | | | [place] [address] | + + + | Home Phone | | + + + | Preferred Language | Unknown | + + + | Marital Status | Single | + + + | Bahai Affiliation | 1041 | + + + | Race | Unknown | + + + | Ethnic Group | Unknown | + + + Author + + + | Author | [facility] | | | and [place] | + + + | Organization | [facility] | | | [...] Team Providers + +------+ + | Care Card Cutter Helper Name | Role | Phone | + [...] [place] | | | | | [address] [place] | [place] [address] | | | | | [place] [address] | [phone] | | | | | [phone] | | | +--------+ + + + [...]
--- OUTSIDE RECORDS SUMMARY | ~2020-02-23 | XMS | Encounter Summary ---
Demographics + + + | Address | [address] [facility] | | | [place] [address] | + + + | Home Phone | | + + + | Preferred Language | Unknown | + + + | Marital Status | Single | + + + | Christianity Affiliation | 1041 | + + + | Race | Unknown | + + + | Ethnic Group | Unknown | + + + Author + + + | Author | [facility] | | | and [place] | + + + | Organization | [facility] | | [...] Team Providers + +------+ + | Care Bottom Finisher Name | Role | Phone | + +------+ + | Cindy Miramontes MD | PCP | | + +------+ + Encounter Details +--------+ + + + + | Date | Type | Department | Care Team | Description | +--------+ + + + + | 08/19/ | Hospital | [facility] | Frida Oquendo | | | 2013 | Encounter | MED CTR RADIATION | MD Alanis [address] | | | | | ONCOLOGY [address] [place], [place] | | | | | [place], | [address] | | | | | [place] [address] | | | | | | [phone] | | | +--------+ + + + [...]
--- OUTSIDE RECORDS SUMMARY | ~2020-02-23 | XMS | Clinical Summary ---
Demographics + + + | Address | [address] [facility] [address] | | | [place] [address] | + + + | Home Phone | | + + + | Preferred Language | Unknown | + + + | Marital Status | Single | + + + | Adventist Affiliation | 1041 | + + + | Race | Unknown | + + + | Ethnic Group | Unknown | + + + Author + + + | Author | [facility] | | | and [place] | + + + | Organization | [facility] | | [...] + +------+ + | Care Director Of Math Name | Role | Phone | + +------+ + | Kera Hernandez PA-C | PCP | | + +------+ + Allergies + + + + + + | Active Allergy | Reactions | Severity | Noted | Comments | | | | | Date | | + + + + + + | Gabapentin | Other (See Comments) | | 06/04/20 | Suicidal thoughts | | | | | 16 | | + + + + + + | Latex | | | 07/04/20 | Redness and | | | | | 15 | irritation during | | | | | | chemotherapy | + + + + + + | Nitrofurantoin | Rash | Low | 06/04/20 | | | | | | 16 | | + + + + + + | Nsaids | Other (See Comments) | Medium | 01/31/20 | Does not remember | | | | | 17 | | + + + + + + Medications + + + +---------+------+------+-------+ | Medication | Sig | Dispensed | Refills | Star | End | Statu | | | | | | t | Date | s | | | | | | Date | | | + + + +---------+------+------+-------+ | aspirin 81 mg | Take 81 mg by mouth | | 0 | | | Activ | | chewable tablet | Daily. | | | | | e | + + + +---------+------+------+-------+ | CHOLECALCIFEROL | 1,000 Units by Does | | 0 | | | Activ | | | not apply route. | | | | | e | + + + +---------+------+------+-------+ | OMEGA 3 1000 MG | Take by mouth. | | 0 | | | Activ | | CAPS | | | | | | e | + + + +---------+------+------+-------+ | Loperamide HCl | Take by mouth. | | 0 | | | Activ | | (IMODIUM PO) | | | | | | e | + + + +---------+------+------+-------+ | metFORMIN | Take 500 mg by mouth | | 0 | | | Activ | | (GLUCOPHAGE) 500 mg | 2 times daily (with | | | | | e | | tablet | breakfast & | | | | | | | | dinner). | | | | | | + + + +---------+------+------+-------+ | | Take 1 tablet by | | 0 | | | Activ | | HYDROcodone-acetamin | mouth every 6 hours | | | | | e | | ophen (NORCO) 5-325 | as needed for Pain. | | | | | | | mg per tablet | | | | | | | + + + +---------+------+------+-------+ | psyllium (KONSYL) | Take 1 packet by | 30 each | 11 | 07/0 | | Activ | | 28.3 % PACK | mouth Daily. | | | 2/20 | | e | | | | | | 18 | | | + + + +---------+------+------+-------+ | hydrocortisone | Place rectally 2 | 30 g | 2 | 07/0 | | Activ | | (ANUSOL-HC) 2.5% | times daily. | | | 220 | | e | | rectal cream | | | | 18 | | | + + + +---------+------+------+-------+ +---+ + | | Additional | | | InformationPatient | | | not taking. Reported | | | on 08/25/2019 2:24 | | | PM | +---+ + + + +---+---+------+---+-------+ | lisinopril | Take 10 mg by mouth. | | 0 | | | Activ | | (PRINIVIL, ZESTRIL) | | | | | | e | | 10 mg tablet | | | | | | | + + +---+---+------+---+-------+ | DULoxetine | Take 30 mg by mouth | | 0 | | | Activ | | (CYMBALTA) [address] | Daily. | | | | | e | | capsule | | | | | | | + + +---+---+------+---+-------+ | ALPRAZolam (XANAX) | | | 0 | 09/1 | | Activ | | 0.5 mg tablet | | | | 3/20 | | e | | | | | | 18 | | | + + +---+---+------+---+-------+ | SM ASPIRIN ADULT | | | 0 | 01/1 | | Activ | | LOW STRENGTH 81 MG | | | | 6/20 | | e | | EC tablet | | | | 19 | | | + + +---+---+------+---+-------+ | TRUE METRIX BLOOD | | | 0 | 11/2 | | Activ | | GLUCOSE TEST strip | | | | 0/20 | | e | | | | | | 18 | | | + + +---+---+------+---+-------+ | lisinopril | | | 0 | 10/1 | | Activ | | (PRINIVIL, ZESTRIL) | | | | 6/20 | | e | | 5 mg tablet | | | | 18 | | | + + +---+---+------+---+-------+ | nortriptyline | | | 0 | 12/2 | | Activ | | (PAMELOR) 10 MG | | | | 0/20 | | e | | capsule | | | | 18 | | | + + +---+---+------+---+-------+ | oxybutynin | | | 0 | 11/0 | | Activ | | (DITROPAN) 5 mg | | | | 6/20 | | e | | tablet | | | | 18 | | | + + +---+---+------+---+-------+ | loperamide | | | 0 | 12/1 | | Activ | | (IMODIUM) 2 mg | | | | 8/20 | | e | | capsule | | | | 18 | | | + + +---+---+------+---+-------+ | cyanocobalamin | Vitamin B12 | | 0 | | | Activ | | (VITAMIN B-12) 100 | | | | | | e | | MCG tablet | | | | | | | + + +---+---+------+---+-------+ Active Problems + + + | Problem | Noted Date | + + + | Acute cholecystitis | 05/08/2019 | + + + | Problem | 05/08/2019 | + + + | Ventral hernia without obstruction or gangrene | 05/13/2017 | + + + | Precordial pain | 01/30/2017 | + + + | Abdominal pain, right lower quadrant | 01/04/2015 | + + + | Ileostomy status | 01/04/2015 | + + + | Attention to ileostomy | 11/25/2014 | + + + | Obesity with body mass index 30 or greater | 11/09/2014 | + + + | Rectal cancer | 08/06/2014 | + + + + + | Cancer Staging: Clinical: Stage IIA (T3, N0, M0) - Signed by | | Wing Frank MD on 08/06/2014 | + + + + + | Rectal cancer | 08/06/2014 | + + + + + | Overview: ACTIVE DIAGNOSIS: [id number], endoscopically staged | | IIA rectal cancer.1. Carcinoma of the rectum Moderately | | differentiated adenocarcinoma Low lying position above the anal | | verge EUS findings suggest uT3 depth of invasionS/p | | chemo-radiotherapy neoadjuvant induction therapy, Aug-Sep, | | 2013S/p Laparascopic, low abdominal proctectomy, colo-anal | | anastamosis, Dr. Ronaldo Hess, [facility], Nov, 2014 with no | | histologically identifiable residual disease, Thus ypT0,N0 (0/7), | | M0 Last Assessment & Plan: Extended office encounter with | | Fang and her family discussing the use of adjuvant CapeOx for | | the adjuvant treatment of her rectal cancer. This [...] | | with CapeOx. | + + + + + | Abnormal vaginal bleeding | 07/22/2014 | + + + | Hypertension | 07/22/2014 | + + + | Obesity, unspecified | 07/22/2014 | + + + | Malignant neoplasm of rectum | 07/22/2014 | + + + + + | Overview: Overview: Overview: ACTIVE DIAGNOSIS: [id number], | | endoscopically staged IIA rectal cancer.1. Carcinoma of the | | rectum Moderately differentiated adenocarcinoma Low lying | | position above the anal verge EUS findings suggest uT3 depth of | | invasionS/p chemo-radiotherapy neoadjuvant induction therapy, | | Aug-Sep, 2014S/p Laparascopic, low abdominal proctectomy, | | colo-anal anastamosis, Dr. Ronaldo Hess, [facility], Nov, 2014 with no | | histologically identifiable residual disease, Thus ypT0,N0 | | (0/7), M0Last Assessment & Plan: Extended office encounter with | | Fang and her family discussing the use of adjuvant CapeOx for | | the adjuvant treatment of her rectal cancer. This [...] | | with CapeOx. | + + + + + | Type 2 diabetes mellitus without complications | 07/09/2014 | + + + Immunizations + + + + | Name | Administration Dates | Next Due | + + + + | HEP A, 2 DOSE | 05/16/2017 | | | (ADULT) | | | + + + + | HEP A/HEP B, 3 DOSE | 07/09/2016, 02/28/2016, 05/26/2014 | | | (ADULT) | | | + + + + | INFLUENZA PF 18 Y OR | 01/05/2015 | | | >,TRIVALENT | | | | RECOMBINANT | | | + + + + | INFLUENZA PF | 07/17/2018, 07/22/2017, 07/09/2016 | | | QUAD(PED/ADOL/ADULT) | | | | ,PSKT or VIAL | | | + + + + | INFLUENZA PF | 07/21/2015, 01/05/2015 | | | TRIVALENT(PED/ADOL/A | | | | DULT), PSKT | | | + + + + | INFLUENZA TRIV | 01/08/2014, 10/09/2012 | | | W/PRES(PED/ADOL/ADUL | | | | T),MULTIDOSE | | | + + + + | INFLUENZA, | 09/19/2011 | | | UNSPECIFIED | | | | FORMULATION | | | + + + + | TD PF (5 LF TETANUS) | 06/26/2018 | | | (ADOL/ADULT) | | | + + + + | TDAP, (ADOL/ADULT) | 05/21/2008 | | + + + + Family History + + +------+ + | Medical History | Relation | Name | Comments | + + +------+ + | Hypertension | Brother | | | + + +------+ + | Cancer | Father | | lung cancer | + + +------+ + | Lung cancer | Father | | | + + +------+ + | Heart disease | Mother | | | + + +------+ + | Lung cancer | Paternal | | | | | Aunt | | | + + +------+ + + +------+ + + | Relation | Name | Status | Comments | + +------+ + + | Brother | | Alive | | + +------+ + + | Brother | | Alive | | + +------+ + + | Brother | | Alive | | + +------+ + + | Brother | | Alive | | + +------+ + + | Brother | | | | + +------+ + + | Father | | | | + +------+ + + | Father | | | | + +------+ + + | Mother | | | | | | | (Age | | | | | 70) | | + +------+ + + | Mother | | | | + +------+ + + | Paternal Aunt | | | | + +------+ + + | Sister | | Alive | | + +------+ + + | Sister | | Alive | | + +------+ + + Social History + + + [...] recent travel history available. | + + Last Filed Vital Signs + [...] | 162.6 cm (5' 4") | 12/03/2018 2:57 PM | | | | | PST | | + + + + + | Body Mass Index | 35.53 | 12/03/2018 2:57 PM | | | | | PST | | + + + + + Plan of Treatment + + + + + | Health Maintenance | Due Date | Last Done | Comments | + + + + + | Hepatitis C | | | | | Screening | 5 | | | + + + + + | Vaccine: | | | | | Pneumococcal 19-64 | 1 | | | | (1 of 3 - PCV13) | | | | + + + + + | Diabetic Eye Exam | | | | | | 3 | | | + + + + + | Diabetic Foot Exam | | | | | | 3 | | | + + + + + | Cervical Cancer | | | | | Screening (Pap) | 5 | | | + + + + + | Vaccine: Zoster (1 | | | | | of 2) | 5 | | | + + + + + | Statin Therapy | | | | | (optimal intensity) | 5 | | | + + + + + | Hemoglobin A1c | | 04/08/2018 | | | Screening | 8 | | | + + + + + | Breast Cancer | | 11/10/2018, 07/08/2017, | | | Screening | 0 | 09/01/2013 | | + + + + + | Vaccine: Influenza | | 07/17/2018, 07/22/2017, | | | (Season Ended) | 0 | 07/09/2016, Additional history | | | | | exists | | + + + + + | Vaccine: | | 06/26/2018, 05/21/2008 | | | Dtap/Tdap/Td (3 - | 8 | | | | Td) | | | | + + + + + Results Not on filefrom Last 3 Months Insurance + +--------+ +--------+-------+---------+--------+ | Payer | Benefi | Subscriber | Effect | Phone | Address | Type | | | t Plan | ID | lurdes | | | | | | / | | Dates | | | | | | Group | | | | | | + +--------+ +--------+-------+---------+--------+ | BCBS | BCBS | [id number] | 10/14/19 | | | PPO | | | FEDERA | | 16-Pre | | | | | | L FEP | | sent | | | | + +--------+ +--------+-------+---------+--------+ | BCBS | BCBS | [id number] | 10/14/19 | | | PPO | | | FEDERA | | 16-Pre | | | | | | L FEP | | sent | | | | + +--------+ +--------+-------+---------+--------+ | [facility] | [employer]HS | [id number] | 07/28/ | | | Indemn | | SERVICE | YELLOW | | 2014-P | | | ity | | | HAWK | | resent | | | | + +--------+ +--------+-------+---------+--------+ | [employer] | [employer]HS | [id number] | 10/14/19 | | | Indemn | | SERVICE | YELLOW | | 17-Pre | | | ity | | | HAWK | | sent | | | | + +--------+ +--------+-------+---------+--------+ + +--------+ +--------+ + + | Guarantor Name | Accoun | Relation to | Date | Phone | Billing Address | | | t Type | Patient | of | | | | | | | | | | + +--------+ +--------+ + + | Fang Stephenson | Person | Self [birth year] | [address] | | | al/Fam | | 1965 | [phone] | [address] [place], [place] | | | [place] | | | 0 (Home) | [address] | | | | | | [phone] | | | | | | | 4 (Work) | | + +--------+ +--------+ + + | Fang Stephenson | Person | Self | [birth year] | [address] | | | al/Fam | | 1965 | [phone] | [address] [place], [place] | | | [place] | | | 0 (Home) | [address] | | | | | | [phone] | | | | | | | 4 (Work) | | + +--------+ +--------+ + + Advance Directives + + + + + | Type | Date Recorded | Patient | Explanation | | | | Institutional Commodity Analyst | | + + + + + | Power of | | | | | Vice President Of Contracts | | | | + + + + + | Advance | 12/08/2018 12:45 | | | | Directive | PM | | | + + + + +
--- OUTSIDE RECORDS SUMMARY | ~2020-02-23 | XMS | Encounter Summary ---
Demographics + + + | Address | [address] [facility] | | | [place] [address] | + + + | Home Phone | | + + + | Preferred Language | Unknown | + + + | Marital Status | Single | + + + | Confucianist Affiliation | 1041 | + + + | Race | Unknown | + + + | Ethnic Group | Unknown | + + + Author + + + | Author | [facility] | | | and [place] | + + + | Organization | [facility] | | | [...] Team Providers + +------+ + | Care Process Control Programmer Name | Role | Phone | + +------+ + | Cidny Miramontes MD | PCP | | + +------+ + Reason for Visit +--------+ + | Reason | Comments | +--------+ + | Other | | +--------+ + Encounter Details +--------+ + + + + | Date | Type | Department | Care Team | Description | +--------+ + + + + | 01/06/ | Telephone | [facility] | Wing Frank | Other | | 2015 | | MED CTR PROVIDER | MD Casimiro [address] | | | | | ONCOLOGY [address] [place] | | | | | [place], | [place] [address] | | | | | [place] [address] | [phone] | | | | | [phone] | | | +--------+ + + + [...]
--- OUTSIDE RECORDS SUMMARY | ~2020-02-23 | XMS | Encounter Summary ---
Demographics + + + | Address | [address] [facility] [address] | | | [place] [address] | + + + | Home Phone | | + + + | Preferred Language | Unknown | + + + | Marital Status | Single | + + + | Restoration Affiliation | 1041 | + + + | Race | Unknown | + + + | Ethnic Group | Unknown | + + + Author + + + | Author | [facility] | | | and [place] | + + + | Organization | [facility] | | | [...] Team Providers + +------+ + | Care Stenographer Secretary Name | Role | Phone | + +------+ + | Cindy Miramontes MD | PCP | | + +------+ + Encounter Details +--------+ + + + + | Date | Type | Department | Care Team | Description | +--------+ + + + + | 08/19/ | Hospital | [facility] | Frida Oquendo | | | 2013 | Encounter | MED CTR RADIATION | MD Alanis [address] | | | | | ONCOLOGY [address] [place], [place] | | | | | [place], | [address] | | | | | [place] [address] | | | | | | [phone] | | | +--------+ + + + [...]
--- OUTSIDE RECORDS SUMMARY | ~2020-02-23 | XMS | Encounter Summary ---
Demographics + + + | Address | [address] [facility] [address] | | | [place] [address] | + + + | Home Phone | | + + + | Preferred Language | Unknown | + + + | Marital Status | Single | + + + | Mosque Affiliation | 1041 | + + + | Race | Unknown | + + + | Ethnic Group | Unknown | + + + Author + + + | Author | [facility] | | | and [place] | + + + | Organization | [facility] | | [...] Team Providers + +------+ + | Care Smash Fixer Name | Role | Phone | + [...] + + + + | 02/27/ | Telephone | [facility] | Wing Frank | Other | | 2016 | | MED CTR MEDICAL | MD [address]im[address] | | | | | ONCOLOGY CLINIC [address] [place] | | | | | [address] [place] | [place] [address] | | | | | [place] [address] | [phone] | | | | | [phone] | | | +--------+ + + + [...]
--- OUTSIDE RECORDS SUMMARY | ~2020-02-23 | XMS | Encounter Summary ---
Demographics + + + | Address | [address] [facility] [address] | | | [place] [address] | + + + | Home Phone | | + + + | Preferred Language | Unknown | + + + | Marital Status | Single | + + + | Baptist Affiliation | 1041 | + + + [...] Team Providers + +------+ + | Care Facility Manager Histology Name | Role | Phone | + +------+ + | Kera Hernandez PA-C | PCP | | + +------+ + Reason for Visit +--------+ + | Reason | Comments | +--------+ + | Other | | +--------+ + Encounter Details +--------+ + + + + | Date | Type | Department | Care Team | Description | +--------+ + + + + | 10/22/ | Telephone | [facility] | Wing Frank | Other | | 2017 | | MED CTR MEDICAL | MD Casim[address] | | | | | ONCOLOGY CLINIC [address] [place] | | | | | [place] | [place] [address] | | | | | [place] [address] | [phone] | | | | | [phone] | | | +--------+ + + + [...]
--- OUTSIDE RECORDS SUMMARY | ~2020-02-23 | XMS | Encounter Summary ---
Demographics + + + | Address | [address] [facility] | | | [place] [address] | + + + | Home Phone [...] Team Providers + +------+ + | Care Pump Oiler Name | Role | Phone | + +------+ + | Cindy Miramontes MD | PCP | | + +------+ + Encounter Details +--------+ + + + + | Date | Type | Department | Care Team | Description | +--------+ + + + + | 01/25/ | Documentati | [facility] | Iveth Botello | | | 2014 | on | [facility] | K, [facility] [address] | | | | [address] [place] | [address] [place] | | | | | [place] [address] | [place] [address] | | | | | [phone] | [phone] | | | | | | | [...] as of this encounter Progress Notes Iveth Botello, [facility] - 01/25/2015 1:40 PM PDT IDT PATIENT MEDICATION/PROFILE REVIEW [facility] Pharmacy Recommendation XX Observation only Pharmacy Assessment Therapy emetogenicity risk vs. supportive meds ordered: High/Appropriate Drug interactions of concern: None (with or without HRT) Allergy/Duplicate/Contraindications/Other: None Lab-based dose adjustments suggested: None VTE Risk Factors Identified: VTE risk(s) in this patient include BMI 35 kg/m2 or higher (36 .14). [Per Cyrilorana Predictive Model for Chemotherapy-Associated VTE (NCCN Cancer-Associated Guidelines version 2.2014).] XXKhorana risk score= 1-2 (risk of symptomatic VTE 1.8-8.4%): Consider periodically re-asse ssing risk for VTE. Cardiac toxicity risks/recommended monitoring: None Oral Chemo being filled at no charge at [facility] in [place] Objective Data Fang Stephenson is a 49 y.o. female , Wt 99.6kg, Ht 166cm, BSA 2.16m2, BMI 36.14 kg/ m2, Est CrCl~93mL/min per Cockcroft & Gault (Adj BW) (pt is 72% above IBW of 58kg) Allergies : None Diagnosis: Low lying rectal adenocarcinoma Stage IIA, uT3, N0, M0 but has had excellent and complete histologic response to neoadjuvant chemoradiotherapy , Aug-Sep, 2014 and S/p Lapar ascopic, low abdominal proctectomy, colo-anal anastamosis, Dr. Ronaldo Hess, [facility], Nov, with no histologically identifiable residual disease ( ypT0,N0 (0/7), M0). Treatment Regimen: Capecitabine 1000 mg/m2 (2000mg) by mouth twice daily days 1-10 then of f for 11 days + oxaliplatin 130 mg/m2 IV every 21 days Xelox= Oxaliplatin 130mg/m2 q21 days + capecitabine 1000 mg/m2 (or 850 mg/m2 or 1250 mg/m2 po twice daily) po BID days 1-14 or 1-15 every 21 days for 8 cycles Chemotherapy/Supportive therapy: Ondansetron 16 mg Dexamethasone tab+ dexamethasone 12 mg p o once + lorazepam 1mg IV pre med+ Ondansetron 8mg po q8h prn Reference/citation for therapy: Samantha LIMON, Cricket Zarate, Yun Zarate, et al, "Capecitabine Plus Oxaliplatin Compared With Fluorouracil and Folinic Acid as Adjuvant Therapy for Stage III C olon Cancer," J Clin Oncol, 2011, 29(11):1465-71 Cricket Hay, Lizy C, et al, "XELOX (Capecitabine Plus Oxaliplatin): Active Fi rst-Line Therapy for Patients With Metastatic Colorectal Cancer," J Clin Oncol, 2004, 22(11) :2084-91 Pertinent Medical History: has a past medical history of Broken arm; Broken leg; Concussio n; and MRSA infection. Other pertinent objective data: Patient also has history of smoking and alcohol use. She has previously been on HRT for abnormal vaginal bleeding (not sure if she is still taking) a nd is taking metfromin and is 72% above IBW w/ BMI of 36.69 kg/m2. She has had about a 15 p ound intentional weight loss since diagnosis. Current Medications: Current Outpatient Prescriptions on File Prior to Encounter Medication Sig Dispense Refill aspirin 81 mg chewable tablet Take 81 mg by mouth Daily. CHOLECALCIFEROL 1,000 Units by Does not apply route. LISINOPRIL PO Take 10 mg by mouth. metFORMIN (GLUCOPHAGE) 500 mg tablet Take 500 mg by mouth 2 times daily (with breakfast & dinner). OMEGA 3 1000 MG CAPS Take by mouth. Was previously on medroxyprogesterone (provera) 10 po daily. Pertinent Baseline Labs: WBC Date Value Range Status 12/29/2014 5.2 4.0-11.0 K/uL Final Absolute Neutrophils Date Value Range Status 12/29/2014 3.70 1.80-8.50 K/uL Final Platelet Count Date Value Range Status 12/29/2014 273 140-440 K/uL Final Hgb Date Value Range Status 12/29/2014 11.3* 11.5-16.0 g/dL Final Hct Date Value Range Status 12/29/2014 33.1* 34.0-47.0 % Final Creatinine, Serum/Plasma Date Value Range Status 08/05/2014 0.86 0.60-1.30 mg/dL Final BILIRUBIN TOTAL Date Value Range Status 08/05/2014 0.4 0.1-1.5 mg/dL Final AST Date Value Range Status 08/05/2014 28 10-42 U/L Final ALT Date Value Range Status 08/05/2014 28 6-45 U/L Final Electronically signed by: Iveth Botello RPH 01/25/2015 13:41 documented in thi s encounter Plan of Treatment Not on filedocumented as of this encounter Visit Diagnoses Not on filedocumented in this encounter
--- OUTSIDE RECORDS SUMMARY | ~2020-02-23 | XMS | Encounter Summary ---
Demographics + + + | Address | [address] [facility] | | | [place] [address] | + + + | Home Phone | | + + + | Preferred Language | Unknown | + + + | Marital Status | Single | + + + | Yarsanism Affiliation | [id number] | + + + | Race | Unknown | + + + | Ethnic Group | Unknown | + + + Author + + + | Author | [facility] | | | and [place] | + + + | Organization | [facility] | | [...] Team Providers + +------+ + | Care Aoc Plans Intelligence Officer Chief Name | Role | Phone | + [...] | | Rectal | Frank, | [address] | | | | | cancer (HCC) | Wing | [place], | | | | | Procedures | MD [place] | [place] [address] | | | | | CT Chest | [address] | Phone: | | | | | Abdomen | [place] | [phone] | | | | | Pelvis w | [place], [place] | Fax: | | | | | Contrast | [address] | [phone] | | | | | | Phone: | | | | | | | [phone] | | | | | | | Fax: | | | | | | | [phone] | | +--------+--------+ + + + + [...] | | Rectal | Frank, | [address] | | | | | cancer (HCC) | Wing | [place], | | | | | Procedures | MD Cas[place] | [place] [address] | | | | | CT Chest | [address] | Phone: | | | | | Abdomen | [place] | [phone] | | | | | Pelvis w | [place], [place] | Fax: | | | | | Contrast | [address] | [phone] | | | | | | Phone: | | | | | | | [phone] | | | | | | | Fax: | | | | | | | [phone] | | +--------+--------+ + + + + Encounter Details +--------+ + + + + | Date | Type | Department | Care Team | Description | +--------+ + + + + | 04/07/ | Hospital | [facility] | Wing Frank | Rectal cancer (HCC) | | 2018 | Encounter | MED CTR CT [address] | MD [place]imiro [address] | | | | | [place], | [address] [place] | | | | | [place] [address] | [place] [address] | | | | | [phone] | [phone] | | | | | | | [...] | CT CHEST ABDOMEN | Routin | 04/07/2018 | Rectal cancer | Results for this | | PELVIS W CONTRAST | e | 4:16 PM | (HCC) | procedure are in the | | | | PDT | | results section. | + +--------+ + + + documented in this encounter Results CT Chest Abdomen Pelvis w Contrast (04/07/2018 4:16 PM PDT) + + | Specimen | + + | | + + + + + | Narrative | Performed At | + + + | EXAM: CT CHEST ABDOMEN PELVIS W CONTRAST dated 04/07/2018 3:45 PM | [facility] | | HISTORY:surveillance for recurrent rectal cancer Comparison: | | | November 22, 2016 and February 07, 2016 CT chest abdomen and pelvis | | | exams. TECHNIQUE: Imaging is performed from chest through the | | | pubic symphysis with oral contrast and following the uneventful | | | intravenous administration of 100 mL Omnipaque 350. DOSE: DLP | | | 610.63 mGy-cm FINDINGS: CHEST: HEART AND AORTA: No | | | aneurysmal dilatation of the thoracic aorta. No enlargement of the | | | main pulmonary arteries. No visible filling defects in the pulmonary | | | arteries. No cardiac chamber enlargement. No pericardial | | | thickening. MEDIASTINUM: No mediastinal or hilar lymphadenopathy. | | | No visible thyroid pathology. LUNGS:Stable scarring along the | | | minor fissure stable micronodule in the right lower lobe (series 4, | | | image 36). Stable micronodule in the right upper lobe (series 4, | | | image 29). No pleural effusions. The airways are patent. No | | | bronchial wall thickening or bronchiectasis. No airspace disease. | | | CHEST WALL: No axillary or visible supraclavicular lymphadenopathy. | | | ABDOMEN/PELVIS: LIVER: The liver is unremarkable in | | | attenuation and enhancement. There are no focal liver lesions. | | | GALLBLADDER: The gallbladder is surgically absent. The intrahepatic | | | and extrahepatic biliary ducts are appropriate given the postsurgical | | | state. SPLEEN: The spleen is unremarkable. There is no | | | splenomegaly. There is a small splenule. PANCREAS: The pancreas | | | is unremarkable. The pancreatic duct is not dilated. ADRENALS: | | | No adrenal enlargement. No adrenal masses. KIDNEYS: Stable | | | appearance to the atrophied right kidney. No focal lesions in the | | | left kidney. No evidence of obstruction. BOWEL: Patent | | | anastomosis in the upper abdomen. The gastrointestinal tract is | | | otherwise unremarkable.. AORTA AND LYMPH NODES: There is no | | | aneurysmal dilatation of the abdominal aorta. There is no pelvic or | | | abdominal lymphadenopathy. BLADDER: The bladder is decompressed | | | and not well evaluated. UTERUS AND ADNEXA:The uterus and adnexa | | | are unremarkable. OTHER: There is no free fluid. There is no | | | free air. BONES: There are no acute osseous abnormalities. There | | | are no lytic or blastic bone lesions. IMPRESSION - No CT | | | evidence for local regional recurrence or distant metastatic disease. | | | Dictated and Signed by: Wing Monterroso MD | | | Electronically signed: 04/07/2018 6:50 PM | | + + + + + | Procedure Note | + + | Gianni, Rad Results In - 04/07/2018 6:53 PM PDT EXAM: CT CHEST ABDOMEN PELVIS W | | CONTRAST dated 04/07/2018 3:45 PMHISTORY:surveillance for recurrent rectal | | cancerComparison: November 22, 2016 and February 07, 2016 CT chest abdomen and | | pelvisexams.TECHNIQUE: Imaging is performed from chest through the pubic symphysis with | | oralcontrast and following the uneventful intravenous administration of 100 mLOmnipaque | | 350.DOSE: DLP 610.63 mGy-cmFINDINGS: CHEST: HEART AND AORTA: No aneurysmal dilatation | | of the thoracic aorta. No enlargementof the main pulmonary arteries. No visible | | filling defects in the pulmonaryarteries. No cardiac chamber enlargement. No | | pericardial thickening.MEDIASTINUM: No mediastinal or hilar lymphadenopathy. No visible | | thyroidpathology.LUNGS:Stable scarring along the minor fissure stable micronodule in | | the rightlower lobe (series 4, image 36). Stable micronodule in the right upper | | lobe(series 4, image 29). No pleural effusions. The airways are patent. Nobronchial | | wall thickening or bronchiectasis. No airspace disease.CHEST WALL: No axillary or | | visible supraclavicular lymphadenopathy.ABDOMEN/PELVIS: LIVER: The liver is unremarkable | | in attenuation and enhancement. There are nofocal liver lesions.GALLBLADDER: The | | gallbladder is surgically absent. The intrahepatic andextrahepatic biliary ducts are | | appropriate given the postsurgical state.SPLEEN: The spleen is unremarkable. There is | | no splenomegaly. There is a smallsplenule.PANCREAS: The pancreas is unremarkable. The | | pancreatic duct is not dilated.ADRENALS: No adrenal enlargement. No adrenal | | masses.KIDNEYS: Stable appearance to the atrophied right kidney. No focal lesions inthe | | left kidney. No evidence of obstruction.BOWEL: Patent anastomosis in the upper | | abdomen. The gastrointestinal tract isotherwise unremarkable..AORTA AND LYMPH NODES: | | There is no aneurysmal dilatation of the abdominalaorta. There is no pelvic or | | abdominal lymphadenopathy.BLADDER: The bladder is decompressed and not well | | evaluated.UTERUS AND ADNEXA:The uterus and adnexa are unremarkable.OTHER: There is no | | free fluid. There is no free air.BONES: There are no acute osseous abnormalities. | | There are no lytic or blasticbone lesions.IMPRESSION - No CT evidence for local regional | | recurrence or distant metastatic disease.Dictated and Signed by: [place] Monterroso MD | | Electronically signed: 04/07/2018 6:50 PM | |CHEST WALL: No axillary or visible supraclavicular lymphadenopathy. | | | |ABDOMEN/PELVIS: | | | |LIVER: The liver is unremarkable in attenuation and enhancement. There are no | |focal liver lesions. | | | |GALLBLADDER: The gallbladder is surgically absent. The intrahepatic and | |extrahepatic biliary ducts are appropriate given the postsurgical state. | | | |SPLEEN: The spleen is unremarkable. There is no splenomegaly. There is a small | |splenule. | | | |PANCREAS: The pancreas is unremarkable. The pancreatic duct is not dilated. | | | |ADRENALS: No adrenal enlargement. No adrenal masses. | | | |KIDNEYS: Stable appearance to the atrophied right kidney. No focal lesions in | |the left kidney. No evidence of obstruction. | | | |BOWEL: Patent anastomosis in the upper abdomen. The gastrointestinal tract is | |otherwise unremarkable.. | | | |AORTA AND LYMPH NODES: There is no aneurysmal dilatation of the abdominal | |aorta. There is no pelvic or abdominal lymphadenopathy. | | | |BLADDER: The bladder is decompressed and not well evaluated. | | | |UTERUS AND ADNEXA:The uterus and adnexa are unremarkable. | | | |OTHER: There is no free fluid. There is no free air. | | | |BONES: There are no acute osseous abnormalities. There are no lytic or blastic | |bone lesions. | | | | | |IMPRESSION - | | | |No CT evidence for local regional recurrence or distant metastatic disease. | | | | | | | |Dictated and Signed by: Wing Monterroso MD | | Electronically signed: 04/07/2018 6:50 PM | + + + +---------+ + + | Performing | Address | City/State/[facility] | Phone Number | [...] iohexol (OMNIPAQUE 350) 350 | Given | 04/07/20 | 100 mLs | | | | mg/mL injection 100 mL 100 mL, | | 18 4:16 | | | | | Intravenous, ONCE PRN, Other, | | PM PDT | | | | | Starting 04/07/18 at 1616, For | | | | | | | 1 dose, Cat Scanner | | | | | | + +--------+ +---------+------+------+ +---+---+ | | | +---+---+ documented in this encounter"
--- OUTSIDE RECORDS SUMMARY | ~2020-02-23 | XMS | Encounter Summary ---
Demographics + + + | Address | [address] [facility] [address] | | | [place] [address] | + + + | Home Phone | | + + + | Preferred Language | Unknown | + + + | Marital Status | Single | + + + | Tenriism Affiliation | [id number] | + + + | Race | Unknown | + + + | Ethnic Group | Unknown | + + + Author + + + | Author | [facility] | | | and [place] | + + + | Organization | [facility] | [...] Team Providers + +------+ + | Care Saloon Keeper Name | Role | Phone | + [...] | | Rectal | Frank, | [address] | | | | | cancer (HCC) | Wing | [place], | | | | | Procedures | MD [place] | [place] [address] | | | | | CT Chest | [address] | Phone: | | | | | Abdomen | [place] | [phone] | | | | | Pelvis w | [place], [place] | Fax: | | | | | Contrast | [address] | [phone] | | | | | | Phone: | | | | | | | [phone] | | | | | | | Fax: | | | | | | | [phone] | | +--------+--------+ + + + + Reason for Visit Auth/Cert +--------+--------+ + + + + | Status | Reason | Specialty | Diagnoses / | Referred By | Referred To | | | | | Procedures | Contact | Contact | +--------+--------+ + + + + | | | | | | | +--------+--------+ + + + + Encounter Details +--------+ + + + + | Date | Type | Department | Care Team | Description | +--------+ + + + + | 01/29/ | Hospital | [facility] | Wing Frank | Rectal cancer (HCC) | | 2019 | Encounter | MED CTR CT [address] | MD Casimiro [address] | | | | | [place], | [address] [place] | | | | | [place] [address] | [place] [address] | | | | | [phone] | [phone] | | | | | | | [...] | lisinopril | | | 0 | 10/16/20 | | | (PRINIVIL, ZESTRIL) | | | | 18 | | | 5 mg tablet | | | | | | + + + +---------+ + + | loperamide | | | 0 | 12/18/20 | | | (IMODIUM) 2 mg | [...] | CT CHEST ABDOMEN | Routin | 01/29/2019 | Rectal cancer | Results for this | | PELVIS W CONTRAST | e | 11:46 AM | (HCC) | procedure are in [...] iohexol (OMNIPAQUE 350) 350 | Given | 01/30/20 | 90 mLs | | | | mg/mL injection 90 mL 90 mL, | | 19 11:44 | | | | | Intravenous, ONCE PRN, Other, for | | AM PDT | | | | | imaging CT study, Starting Magui | | | | | | | 01/29/19 at 1145, For 1 dose, | | | | | | | Radiology | | | | | | + +--------+ +--------+------+------+ +---+---+ | | | +---+---+ documented in this encounter"
--- OUTSIDE RECORDS SUMMARY | ~2020-02-23 | XMS | Encounter Summary ---
Demographics + + + | Address | [address] [facility] [address] | | | [place] [address] | + + + | Home Phone | | + + + | Preferred Language | Unknown | + + + | Marital Status | Single | + + + | Anabaptist Affiliation | [id number] | + + + [...] Team Providers + +------+ + | Care Real Estate Underwriter Name | Role | Phone | + +------+ + | Kera Hernandez PA-C | PCP | | + +------+ + Encounter Details +--------+ + + + + | Date | Type | Department | Care Team | Description | +--------+ + + + + | 01/09/ | Hospital | [facility] | Wing Frank | Canceled (Lack of | | 2016 | Encounter | MED CTR MEDICAL | MD Casimiro [address] | Transportation) | | | | [facility]COLOGY CLINIC [address] | [address] [place] | | | | | [address] [place] | [place] [address] | | | | | [place] [address] | [phone] | | | | | [phone] | | | +--------+ + + + [...]
--- OUTSIDE RECORDS SUMMARY | ~2020-02-23 | XMS | Encounter Summary ---
Demographics + + + | Address | [address] [facility] | | | [place] [address] | + + + | Home Phone | | + + + | Preferred Language | Unknown | + + + | Marital Status | Single | + + + | Pentecostal Affiliation | [id number] | + + + | Race | Unknown | + + + | Ethnic Group | Unknown | + + + Author + + + | Author | [facility] | | | and [place] | + + + | Organization | [facility] | | | [...] Team Providers + +------+ + | Care Quality Control Head Name | Role | Phone | + +------+ + | Cindy Miramontes MD | PCP | | + +------+ + Reason for Visit +--------+ + | Reason | Comments | +--------+ + | Other | | +--------+ + Encounter Details +--------+ + + + + | Date | Type | Department | Care Team | Description | +--------+ + + + + | 01/12/ | Telephone | [facility] | [facility] | Other | | 2014 | | MED CTR MEDICAL | MD [place] [address] | | | | | ONCOLOGY CLINIC [address] | [address] [place] | | | | | [place] | [place] [address] | | | | | [place] [address] | [phone] | | | | | [phone] | | | +--------+ + + + [...]
--- OUTSIDE RECORDS SUMMARY | ~2020-02-23 | XMS | Clinical Summary ---
Demographics + + + | Address | [address] [facility] [address] | | | [place] [address] | + + + | Home Phone [...] Team Providers + +------+ + | Care Triage Clinician Name | Role | Phone | + [...] + + + | Overview: ACTIVE DIAGNOSIS: [id number], endoscopically staged | | IIA rectal cancer.1. Carcinoma of the rectum Moderately | | differentiated adenocarcinoma Low lying position above the anal | | verge EUS findings suggest uT3 depth of invasionS/p | | chemo-radiotherapy neoadjuvant induction therapy, Aug-Sep, | | 2013S/p Laparascopic, low abdominal proctectomy, colo-anal | | anastamosis, Dr. Ronaldo Hess, [facility], Nov, 2014 with no | | histologically [...] + | Overview: Overview: Overview: ACTIVE DIAGNOSIS: [id number], | | endoscopically staged IIA rectal cancer.1. Carcinoma of the | | rectum Moderately differentiated adenocarcinoma Low lying | | position above the anal verge EUS findings suggest uT3 depth of | | invasionS/p chemo-radiotherapy neoadjuvant induction therapy, | | Aug-Sep, 2014S/p Laparascopic, low abdominal proctectomy, | | colo-anal anastamosis, Dr. Ronaldo Hess, [facility], Nov, 2014 with no | | histologically [...] +--------+ +--------+-------+---------+--------+ | BCBS | BCBS | [id number] | 10/14/19 | | | PPO | | | FEDERA | | 16-Pre | | | | | | L FEP | | sent | | | | + +--------+ +--------+-------+---------+--------+ | BCBS | BCBS | [id number] | 10/14/19 | | | PPO | | | [place]ERA | | 16-Pre | | | | | | L FEP | | sent | | | | + +--------+ +--------+-------+---------+--------+ | [facility] | IHS | [id number] | 07/28/ | | | Indemn | | SERVICE | YELLOW | | 2014-P | | | ity | | | HAWK | | resent | | | | + +--------+ +--------+-------+---------+--------+ | [facility] | IHS | [id number] | 10/14/19 | | | Indemn | [...] [place] | | | 0 (Home) | [phone] | | | | | | [phone] | | | | | | | 4 (Work) | | + +--------+ +--------+ + + | Fang Stephenson | Person | Self | [birth year] | [address] | | | al/Fam | | [phone] | [phone] | [address] [place], [place] | | | [place] | | | 0 (Home) | [address] | | | | | | [phone] | | | | | | | 4 (Work) | | + +--------+ +--------+ + + Advance Directives + + + + + | Type | Date Recorded | Patient | Explanation | | | | Associate Professor Of Church Music | | + + + + + | Power of | | | | | Cleaning And Maintenance Worker | | | | + + + + + | Advance | 12/08/2018 12:45 | | | | Directive | PM | | | + + + + +
--- OUTSIDE RECORDS SUMMARY | ~2020-02-23 | XMS | Encounter Summary ---
Demographics + + + | Address | [address] [facility] [address] | | | [place] [address] | + + + | Home Phone | | + + + | Preferred Language | Unknown | + + + | Marital Status | Single | + + + | Quaker Affiliation | [id number] | + + + [...] Team Providers + +------+ + | Care Wagon Washer Name | Role | Phone | + [...] | neoplasm of | Wing | [address] [place] | | | | | rectum (HCC) | [place], MD | [place], | | | | | Procedures | [address] | [place] [address] | | | | | IN | [place] | Phone: | | | | | CAPECITABINE | [place], [place] | [phone] | | | | | , [place], [address] | [address] | Fax: | | | | | [place] | Phone: | [phone] | | | | | [place] | [phone] | | | | | | [place] | Fax: | | | | | | [place] | [phone] | | | | | | DEXAMETHASON | | | | | | | E, .25 MG | | | | | | | IN LORAZEPAM | | | | | | | INJECTION, | | | | | | | 2 MG IN | | | | | | | OXALIPLATIN, | | | | | | | .5 MG IN | | | | | | | NORMAL | | | | | | | SALINE | | | | | | | SOLUTION | | | | | | | INFUS, 500 | | | | | | | ML IN | | | | | | | NORMAL | | | | | | | SALINE | | | | | | | SOLUTION | | | | | | | INFUS, 250 | | | | | | | ML IN | | | | | | | STERILE | | | | | | | WATER/SALINE | | | | | | | , 10 ML IN | | | | | | | INJ HEPARIN | | | | | | | SODIUM PER | | | | | | | 1000U IN | | | | | | | CHEMOTHER, | | | | | | | IV INFUSION, | | | | | | | 1 HR IN | | | | | | | CHEMOTHER, | | | | | | | IV PUSH,EA | | | | | | | ADD DRUG IN | | | | | | | CHEMOTHER, | | | | | | | IV INFUSION, | | | | | | | EA HR IN | | | | | | | CHEMOTHER,NO | | | | | | | N-HORMONE | | | | | | | ANTI-NEOPL, | | | | | | | SUB-Q/IM IN | | | | | | | [...] + + | 02/21/ | Hospital | [facility] | Wing Frank | Rectal cancer (HCC) | | 2014 | Encounter | MED CTR CHEMO | MD Casimiro [address] | | | | | INFUSION [address] | [address] [place] | | | | | [place], | [place] [address] | | | | | [place] [address] | [phone] | | | | | [phone] | | | +--------+ + + + [...]
--- OUTSIDE RECORDS SUMMARY | ~2020-02-23 | XMS | Encounter Summary ---
Demographics + + + | Address | [address] [address] | | | [place] [address] | + + + | Home Phone | | + + + | Preferred Language | Unknown | + + + | Marital Status | Single | + + + | Rastafarian Affiliation | 1041 | + + + | Race | Unknown | + + + | Ethnic Group | Unknown | + + + Author + + + | Author | [facility] | | | and [place] | + + + | Organization | [facility] | | | [...] Team Providers + +------+ + | Care Pressure Testing Technician Name | Role | Phone | + +------+ + | Cindy Miramontes MD | PCP | | + +------+ + Encounter Details +--------+ + + + + | Date | Type | Department | Care Team | Description | +--------+ + + + + | 08/06/ | Orders Only | [facility] | Wing [facility] | Rectal cancer (HCC) | | 2014 | | [facility] | MD Casimiro [address] | (Primary Dx) | | | | ONCOLOGY CLINIC [address] | [address] | | | | | [address] | [place] [address] | | | | | [place] [address] | [phone] | | | | | [phone] | | | +--------+ + + + [...]
--- OUTSIDE RECORDS SUMMARY | ~2020-02-23 | XMS | Encounter Summary ---
Demographics + + + | Address | [address] [facility] [address] | | | [place] [address] | + + + | Home Phone | | + + + | Preferred Language | Unknown | + + + | Marital Status | Single | + + + | Holiness Affiliation | 1041 | + + + | Race | Unknown | + + + | Ethnic Group | Unknown | + + + Author + + + | Author | [facility] | | | and [place] | + + + | Organization | [facility] | | | and [...] Team Providers + +------+ + | Care Ventilation Worker Name | Role | Phone | + +------+ + | Cindy Miramontes MD | PCP | | + +------+ + Encounter Details +--------+ + + + + | Date | Type | Department | Care Team | Description | +--------+ + + + + | 01/31/ | Hospital | [facility] | Artur, | Rectal cancer (HCC) | | 2015 | Encounter | [facility] | Casimiro Crockett MD [address] | (Primary Dx) | | | | ONCOLOGY CLINIC [address] | [address] [place] | | | | | [address] [place] | [place] [address] | | | | | [place] [address] | [phone] | | | | | [phone] | | | +--------+ + + + [...]
--- OUTSIDE RECORDS SUMMARY | ~2020-02-23 | XMS | Encounter Summary ---
Demographics + + + | Address | [address] [facility] [address] | | | [place] [address] | + + + | Home Phone | | + + + | Preferred Language | Unknown | + + + | Marital Status | Single | + + + | Worship Affiliation | 1041 | + + + | Race | Unknown | + + + | Ethnic Group | Unknown | + + + Author + + + | Author | [facility] | | | and [place] | + + + | Organization | [facility] | | [...] Team Providers + +------+ + | Care Product Marketing Intern Name | Role | Phone | + +------+ + | Cindy Miramontes MD | PCP | | + +------+ + Encounter Details +--------+ + + + + | Date | Type | Department | Care Team | Description | +--------+ + + + + | 02/07/ | [facility] | [facility] | Wing Frank | Rectal cancer (HCC) | | 2015 | Encounter | [facility] | MD Casimiro [address] | (Primary Dx) | | | | ONCOLOGY CLINIC [address] | [address] [place] | | | | | [address] [place] | [place] [address] | | | | | [place] [address] | [phone] | | | | | [phone] | | | +--------+ + + + [...] + + + | Blood Pressure | 104/86 | 02/07/2015 9:26 AM | | | | | PDT | | + + + + + | Pulse | 80 | 02/07/2015 9:26 AM | | | | | PDT | | + + + + + | Temperature | 36.7 C (98.1 F) | 02/07/2015 9:26 AM | | | | | PDT | | + + + + + | Respiratory Rate | 16 | 02/07/2015 9:26 AM | | | | | PDT | | + + + + + | Oxygen Saturation | 98% | 02/07/2015 9:26 AM | | | | | PDT | | + + + + + | Inhaled Oxygen | - | - | | | Concentration | | | | + + + + + | Weight | 97 kg (213 lb 13.5 | 02/07/2015 9:26 AM | | | | oz) | PDT | | + + + + + | Height | - | - | | + + + + + | Body Mass Index | 35.2 | 01/31/2015 11:35 AM | | | [...] | ondansetron | Take one tablet | 30 | 3 | 02/01/20 | | | (ZOFRAN) 8 MG | orally twice a day | tablet | | 15 | 5 | | tabletIndications: | for two days after | | | | | | Rectal cancer (HCC) | chemotherapy. | | | | | + + [...] encounter Progress Notes Wing Frank MD - 02/07/2015 9:56 AM PDTFormatting of this note might be diff erent from the original. Patient is a 49 y.o. female seen today, 02/07/2015, for chemotherapy with CapeOx for Rectal cancer. Today is day 8/cycle 1 of therapy. Patient complaints: back pain Symptoms are rapidly worsening during the past 24 hours. Advance Directives: not addressed Appropriate portions of the patient's past medical, surgical, family, and social history we re reviewed and updated. Review of Systems Constitutional: Denies fatigue. Denies high fevers, shaking chills, anorexia, nausea, vomit ing, weight loss, or night sweats. Appetite without changes. Pt reports ongoing nausea and a few days after chemo two days of emesis. Pt states not being able to determine at night if she's hot or cold. Ear, Nose, Mouth, Throat: Pt reporst occasional odynophagia and dysphagia. Denies tinnitus. Cardiovascular: Denies shortness of breath, dyspnea on exertion, chest pain, palpitations o r orthopnea. Respiratory: Denies cough, hemoptysis, or sputum production. Gastrointestinal: Denies abdominal pain, constipation, diarrhea, melena, or bright red bloo d per rectum. Pt states her colostomy bag has been watery, and her chemo pills are coming ou t whole. Pt reports yesterday a pain in the right flank pain and described as an achy feelin g. Genitourinary: Denies hematuria or dysuria. Musculoskeletal: Denies joint pain or tenderness. Neurologic: Pt reports headache. Denies visual changes. Pt reports numbness/tingling of the extremities and recently have been experiencing tingling in the left thigh. Endocrine: Denies peripheral edema or heat/cold intolerance. Hematologic: Denies spontaneous bruising or bleeding. Integumentary: Denies rash, wounds or other skin concerns. Pain: Pt is having pain in the right flank area and rates the pain at a 6 with out pain med ication and with she rates the pain at a 4 , this is on a pain scale from 0-10. Objective: BP 104/86 | Pulse 80 | Temp(Src) 36.7 C (98.1 F) (Oral) | Resp 16 | Wt 97 kg (213 lb 13 .5 oz) | SpO2 98% General appearance: alert, appears stated age and cooperative Back: symmetric, no curvature. ROM normal. No CVA tenderness. Extremities: extremities normal, atraumatic, no cyanosis or edema Data Review CBC: Lab Results Component Value Date WBC 4.0 02/07/2015 RBC 4.10 02/07/2015 BMP: Lab Results Component Value Date CO2 24 02/07/2015 BUN 14 02/07/2015 CALCIUM 9.6 02/07/2015 Assessment: Active Problems: 1. Rectal cancer (HCC) Plan: The patient has a documented plan of care to address pain. Discussed management of likely latissimus sprain with hot applications and rest. Discussed use of lorazepam on an as-needed basis for nausea that extends beyond the first d ays of chemotherapy Review of laboratory testing noting no acute myelosuppression so far. Two-week follow-up for cycle 2 Wing Frank Leah Rodriguez CMA - 02/07/2015 9:29 AM PDTREVIEW OF SYSTEMS Constitutional: Denies fatigue. Denies high fevers, shaking chills, anorexia, nausea, vomit ing, weight loss, or night sweats. Appetite without changes. Pt reports ongoing nausea and a few days after chemo two days of emesis. Pt states not being able to determine at night i f she's hot or cold. Ear, Nose, Mouth, Throat: Pt reporst occasional odynophagia and dysphagia. Denies tinnitus. Cardiovascular: Denies shortness of breath, dyspnea on exertion, chest pain, palpitations o r orthopnea. Respiratory: Denies cough, hemoptysis, or sputum production. Gastrointestinal: Denies abdominal pain, constipation, diarrhea, melena, or bright red bloo d per rectum. Pt states her colostomy bag has been watery, and her chemo pills are coming ou t whole. Pt reports yesterday a pain in the right flank pain and described as an achy feelin g. Genitourinary: Denies hematuria or dysuria. Musculoskeletal: Denies joint pain or tenderness. Neurologic: Pt reports headache. Denies visual changes. Pt reports numbness/tingling of th e extremities and recently have been experiencing tingling in the left thigh. Endocrine: Denies peripheral edema or heat/cold intolerance. Hematologic: Denies spontaneous bruising or bleeding. Integumentary: Denies rash, wounds or other skin concerns. Pain: Pt is having pain in the right flank area and rates the pain at a 6 with out pain med ication and with she rates the pain at a 4 , this is on a pain scale from 0-10. Note: Pt is here for martina check. Pt states she has been staggering and off balanced. My chart: documented in this encounter Plan of Treatment + +------+--------+ + + | Name | Type | Priori | Associated Diagnoses | Order Schedule | | | | ty | | | + +------+--------+ + + | Comprehensive | Lab | STAT | Rectal cancer | With Oncology Appt | | Metabolic Panel | | | (HCC) | for 10 Occurrences | | | | | | starting 02/07/2015 | | | | | | until 02/08/2016, 4 | | | | | | completed | + +------+--------+ + + documented as of this encounter Procedures + +--------+ + + + | Procedure Name | Priori | Date/Time | Associated Diagnosis | Comments | | | ty | | | | + +--------+ + + + | CBC W/AUTO | STAT | 02/07/2015 | Rectal cancer | Results for this | | DIFFERENTIAL | | 9:16 AM | (HCC) | procedure are in the | | | | PDT | | results section. | + +--------+ + + + | COMPREHENSIVE | STAT | 02/07/2015 | Rectal cancer | Results for this | | METABOLIC PANEL | | 9:16 AM | (HCC) | procedure are in the | | | | PDT | | results section. | + +--------+ + + + documented in this encounter Results Comprehensive Metabolic Panel (01/16/2016 1:43 PM PDT) [...] | 0.83 | 0.60 - 1.30 | [facility] | [...] | mL/min/1.73m2 | [facility] | | | [facility] | RATE,ESTIMATED | | MEDICAL | | | | mL/min/1.39l6Uznk than | | CENTER - | | [...] | | ine Ratio | | | [facility] | | [...] [address] | [place] | [phone] | | [facility] | | [address] | | | - LABORATORY | | | | + + + + + Comprehensive Metabolic Panel (10/03/2015 12:56 PM PST) + + + + + + | Component | Value | Ref Range | Performed | Pathologist | | | | | At | Signature | + + + + + + | Na | 144 | 136 - 149 | [facility] | [...] + + + + | Cl | 113 (H) | 98 - 109 mmol/L | [...] + + + + | Glucose | 102 | 70 - 109 mg/dL | [facility] | | | | | | [facility] | | | | | | MEDICAL | | | | | | CENTER - | | | | | | LABORATORY | | + + + + + + | BUN | 20 (H) | 7 - 18 mg/dL | [facility] | | | | | | [facility] | | | | | | MEDICAL | | | | | | CENTER - | | | | | | LABORATORY | | + + + + + + | Creatinine | 0.82 | 0.60 - 1.30 | [facility] | | | | | mg/dL | [facility] | | | | | | MEDICAL | | | | | | CENTER - | | | | | | LABORATORY | | + + + + + + | eGFR if not | >60Comment: GLOMERULAR | >=60 | [facility] | | | | FILTRATION | mL/min/1.73m2 | [facility] | | | [facility] | RATE,ESTIMATED | | MEDICAL | | | | mL/min/1.02s3Bgih than | | CENTER - | | [...] + + + + | Albumin | 3.9 | 3.2 - 5.0 g/dL | [facility] [...] + + + + | Total | 6.6 | 6.0 - 7.8 g/dL | [facility] | | | Protein | | | [facility] | | | | | | MEDICAL | | | | | | CENTER - | | | | | | LABORATORY | | + + + + + + | AST | 22Comment: This is an | 10 - 42 [...] + + + + | ALT | 17Comment: This is an | 6 - 45 [...] + + + + | Alkaline | 81Comment: This is an | 40 - 110 [...] + + | Albumin/Nicol | 1.4 | | [facility] | | | bulin Ratio | | | [facility] | | | | | | MEDICAL | | | | | | CENTER - | | | | | | LABORATORY | | + + + + + + | BUN/Creatin | 24.4 | | [facility] | | | ine [...] [address] | [place] | [phone] | | [facility] | | [address] | | | - LABORATORY | | [...] 18 | 7 - 18 mg/dL | [facility] | | | | | | [facility] | | | | | | MEDICAL | | | | | | CENTER - | | | | | | LABORATORY | | + + + + + + | Creatinine | 0.85 | 0.60 - 1.30 | [facility] | | | | | mg/dL | [facility] | | | | | | MEDICAL | | | | | | CENTER - | | | | | | LABORATORY | | + + + + + + | eGFR if not | >60Comment: GLOMERULAR | >=60 | [facility] | | | | FILTRATION | mL/min/1.73m2 | [facility] | | | [facility] | RATE,ESTIMATED | | MEDICAL | | | | mL/min/1.85n2Hiuw than | | CENTER - | | [...] [address] | [place] | [phone] | | [facility] | | [address] | | | - LABORATORY | | [...] ST. | [address] | [place], [place] | [phone] | | [facility] | | [address] | | | - LABORATORY | | | | + + + + + Comprehensive Metabolic Panel (02/07/2015 9:16 AM PDT) + + + [...] + + + + | Glucose | 188 (H) | 70 - 109 mg/dL | [...] + + + + | Creatinine | 1.03 | 0.60 - 1.30 | [facility] | | | | | mg/dL | [facility] | | | | | | MEDICAL | | | | | | CENTER - | | | | | | LABORATORY | | + + + + + + | eGFR if not | 57 (L)Comment: | >=60 | [facility] | | | | GLOMERULAR FILTRATION | mL/min/1.73m2 | [facility] | | | [facility] | RATE,ESTIMATED | | MEDICAL | | | | mL/min/1.63y0Rsxm than | | CENTER - | | [...] + + + + | Calcium | 9.6 | 8.3 - 10.5 | [facility] | | | | | mg/dL | [facility] | | | | | | MEDICAL | | | | | | CENTER - | | | | | | LABORATORY | | + + + + + + | Albumin | 4.0 | 3.2 - 5.0 g/dL | [facility] [...] + + + + | Total | 7.1 | 6.0 - 7.8 g/dL | [facility] | | | Protein | | | [facility] | | | | | | MEDICAL | | | | | | CENTER - | | | | | | LABORATORY | | + + + + + + | AST | 30 | 10 - 42 U/L | [facility] | | | | | | [facility] | | | | | | MEDICAL | | | | | | CENTER - | | | | | | LABORATORY | | + + + + + + | ALT | 45 | 6 - 45 U/L | [facility] | | | | | | [facility] | | | | | | MEDICAL | | | | | | CENTER - | | | | | | LABORATORY | | + + + + + + | Alkaline | 62 | 40 - 110 U/L | [facility] | | | Phosphatase | | | [facility] | | | | | | MEDICAL | | | | | | CENTER - | | | | | | LABORATORY | | + + + + + + | Globulin | 3.1 | g/dL | [facility] | | | [...] + + + + | BUN/Creatin | 13.6 | | [facility] | | | ine [...] [address] | [place] | [phone] | | [facility] | | [address] | | | - LABORATORY | | | | + + + + + documented in this encounter Visit Diagnoses + + | Diagnosis | + + | Rectal cancer (HCC) - Primary Malignant neoplasm of rectum | + + documented in this encounter"
--- OUTSIDE RECORDS SUMMARY | ~2020-02-23 | XMS | Encounter Summary ---
Demographics + + + | Address | [address] [facility] [address] [address] | | | [place] [address] | + + + | Home Phone | | + + + | Preferred Language | Unknown | + + + | Marital Status | Single | + + + | Church Affiliation | 1041 | + + + | Race | Unknown | + + + | Ethnic Group | Unknown | + + + Author + + + | Author | [facility] | | | and [place] | + + + | Organization | [facility] | | | [...] Providers + +------+ + | Care Operations Vice President Name | Role | Phone | + +------+ + | Kera Hernandez PA-C | PCP | | + +------+ + Encounter Details +--------+ + + + + | Date | Type | Department | Care Team | Description | +--------+ + + + + | 12/04/ | Imaging | [facility] | Provider, | | | 2019 | Exam | [facility] EXTER[facility] | MD Bailee [address] | | | | | IMAGING [address] | [address] | | | | | [address] [place] | [place] [address] | | | | | [place] [address] | | | | | | [phone] | | | +--------+ + + + [...] | + +--------+ + + + | TERRY DIGITAL | Routin | 07/08/2017 | | Results for this | | SCREENING BILATERAL | e | 1:30 PM | | procedure are in the | | | | PDT | | results section. | + +--------+ + + + documented in this encounter Results TERRY Digital Screening Bilateral (07/08/2017 1:30 PM PDT) + + | Specimen | + + | | + + + + + | Narrative | Performed At | + + + | External films for comparison only | [facility] | | | | | No results will be in the chart. | | + + + + +---------+ + + | Performing | Address | City/State/Zipcode | Phone Number | | Organization | | | | + +---------+ + + | [facility] | | | | + +---------+ + + documented in this encounter Visit Diagnoses Not on filedocumented in this encounter"
--- OUTSIDE RECORDS SUMMARY | ~2020-02-23 | XMS | Encounter Summary ---
Demographics + + + | Address | [address] [facility] [address] | | | [place] [address] | + + + | Home Phone | | + + + | Preferred Language | Unknown | + + + | Marital Status | Single | + + + | Zoroastrianism Affiliation | 1041 | + + + [...] Team Providers + +------+ + | Care School Physical Therapist Name | Role | Phone | + [...] | | [address] [place] | [place] [address] | | | | | [place] [address] | | | | | | [phone] | | | +--------+ + + + [...] + | TERRY DIGITAL | Routin | 11/10/2018 | | Results for this | | SCREENING BILATERAL | e | 11:55 AM | | procedure are in the | | | | PST | | results section. | + +--------+ + + + documented in this encounter Results TERRY Digital Screening Bilateral (11/10/2018 11:55 AM PST) + + | Specimen | + [...]
--- OUTSIDE RECORDS SUMMARY | ~2020-02-23 | XMS | Encounter Summary ---
Demographics + + + | Address | [address] [facility] [address] | | | [place] [address] | + + + | Home Phone | | + + + | Preferred Language | Unknown | + + + | Marital Status | Single | + + + | Latter-Day Affiliation | 1041 | + + + | Race | Unknown | + + + | Ethnic Group | Unknown | + + + Author + + + | Author | [facility] | | | and [place] | + + + | Organization | [facility] | | | [...] Providers + +------+ + | Care Nutrition Professor Name | Role | Phone | + +------+ + | Cindy Miramontes MD | PCP | | + +------+ + Encounter Details +--------+ + + + + | Date | Type | Department | Care Team | Description | +--------+ + + + + | 02/21/ | [facility] Dayna Guy | | | 2014 | on | MED CNT ONCOLOGY | A, OT | | | | | THERAPY [address] | | | | | | [address] [place], | | | | | | [place] [address] | | | | | | [phone] | | | +--------+ + + + [...] as of this encounter Progress Notes Dayna Guy OT - 02/21/2015 10:56 [facility] [address] [facility] [address] Oncology Rehab Screening Date: 02/21/2015 Patient Information Patient Name: Fang Stephenson Date of : 1965 Age: 49 y.o. Patient was seen for oncology rehab follow-up visit. Patient reports no significant change s in physical functioning. 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 Patient also reports she walks for approx 15 min every day at her lunch break. Encouraged patient to continue with her curren t plan as she is doing well managing her treatments, fatigue, and maintaining level of physi dayne activity. Will continue to follow-up in cancer center as needed. Will have follow up visit in cancer center. Electronically signed by: Dayna Guy OT, 02/21/2015 10:56 Patient Name: Fang Stephenson/: 1965/ documented in this encounter Plan of Treatment Not on filedocumented as of this encounter Visit Diagnoses Not on filedocumented in this encounter"
--- OUTSIDE RECORDS SUMMARY | ~2020-02-23 | XMS | Encounter Summary ---
Demographics + + + | Address | [address] [address] [address] | | | [place] [address] | + + + | Home Phone [...] Team Providers + +------+ + | Care Tube Washer Name | Role | Phone | [...] | neoplasm of | Wing | [address] [place] | | | | | rectum (HCC) | Casimiro, MD | [place], | | | | | Procedures | [address] | [place] [address] | | | | | [place] | [address] [place] | Phone: | | | | | [place] | [place], [place] | [phone] | | | | | , [place], [address] | [address] | Fax: | | | | | [place] | Phone: | [phone] | | | | | [place] | [phone] | | | | | | [place] | Fax: | | | | | | [place] | [phone] | | | | | | DEXAMETHASON | | | | | | | E, .25 MG | | | | | | | ND LORAZEPAM | | | | | | | INJECTION, | | | | | | | 2 MG ND | | | | | | | OXALIPLATIN, | | | | | | | .5 MG ND | | | | | | | NORMAL | | | | | | | SALINE | | | | | | | SOLUTION | | | | | | | INFUS, 500 | | | | | | | ML ND | | | | | | | NORMAL | | | | | | | SALINE | | | | | | | SOLUTION | | | | | | | INFUS, 250 | | | | | | | ML ND | | | | | | | STERILE | | | | | | | WATER/SALINE | | | | | | | , 10 ML ND | | | | | | | INJ HEPARIN | | | | | | | SODIUM PER | | | | | | | 1000U ND | | | | | | | CHEMOTHER, | | | | | | | IV INFUSION, | | | | | | | 1 HR ND | | | | | | | CHEMOTHER, | | | | | | | IV PUSH,EA | | | | | | | ADD DRUG ND | | | | | | | CHEMOTHER, | | | | | | | IV INFUSION, | | | | | | | EA HR ND | | | | | | | CHEMOTHER,NO | | | | | | | N-HORMONE | | | | | | | ANTI-NEOPL, | | | | | | | SUB-Q/IM ND | | | | | | | [...] + + | 01/31/ | Hospital | [facility] | Artur, | Rectal cancer (HCC) | | 2014 | Encounter | MED CTR CHEMO | Casimiro Crockett MD [address] | | | | | INFUSION [address] | [address] [place] | | | | | [place], | [place] [address] | | | | | [place] [address] | [phone] | | | | | [phone] | | | +--------+ + + + [...]
--- OUTSIDE RECORDS SUMMARY | ~2020-02-23 | XMS | Encounter Summary ---
Demographics + + + | Address | [address] [facility] [address] | | | [place] [address] | + + + | Home Phone [...] Team Providers + +------+ + | Care Software Performance Engineer Name | Role | Phone | [...] | neoplasm of | Wing | [address] [place] | | | | | rectum (HCC) | MD Casimiro | [place], | | | | | Procedures | [address] | [place] [address] | | | | | [place] | [place] | Phone: | | | | | SUCROSE | [facility], [place] | [phone] | | | | | INJECTION, 1 | [address] | Fax: | | | | | [place] | Phone: | [phone] | | | | | | [phone] | | | | | | | Fax: | | | | | | | [phone] | | +--------+--------+ + + + + Encounter Details +--------+ + + + + | Date | Type | Department | Care Team | Description | +--------+ + + + + | 09/03/ | Hospital | [facility] | Wing Frank | Rectal cancer (HCC) | | 2016 | Encounter | MED CTR CHEMO | MD Casimiro [address] | | | | | INFUSION [address] | [address] [place] | | | | | [place], | [place] [address] | | | | | [place] [address] | [phone] | | | | | [phone] | | | +--------+ + + + [...] | + + + +---------+--------+ + | CEPHALEXIN PO | Take by mouth. | | 0 | | | | | | | | | 7 | + + + +---------+--------+ + | | Take 1 tablet by | | 0 | | | | HYDROcodone-acetamin | mouth every 6 hours | | | | 7 | | ophen (NORCO) 5-325 | as [...] | + + + +---------+--------+ + | PHENAZOPYRIDINE | Take by mouth. | | 0 | | | | HCL PO | | | | | 7 | [...] + documented as of this encounter Progress Fallon Garibay RN - 09/03/2016 3:05 PM PSTDischarged to home in satisfactory condition , ambulatory, with family. Fallon Johnson RN documented in this encounter Plan of Treatment [...] (VENOFER) 200 mg | New Bag | 09/03/20 | 200 mg | 220 | | | in sodium chloride 0.9% 100 mL | | 16 2:26 | | mL/hr | | | IVPB 200 mg, Intravenous, | | PM PST | | | | | Administer over 30 Minutes, | | | | | | | WEEKLY, First dose on Mon | | | | | | | 09/03/16 at 1400 | | | | | | + +---------+ +--------+-------+------+ +---+---+ | | | +---+---+ documented in this encounter"
--- OUTSIDE RECORDS SUMMARY | ~2020-02-23 | XMS | Encounter Summary ---
Demographics + + + | Address | [address] | | | [place] [address] | + + + | Home Phone | | + + + | Preferred Language | Unknown | + + + | Marital Status | Single | + + + | Sikhism Affiliation | [id number] | + + + | Race | Unknown | + + + | Ethnic Group | Unknown | + + + Author + + + | Author | [facility] | | | and [place] | + + + | Organization | [facility] | | [...] Team Providers + +------+ + | Care Sock Ironer Name | Role | Phone | + [...] | | | | Procedures | [place], [place] | [address] [facility] | | | | | [place] OFFICE | [address] | [facility] [place] | | | | | OUTPATIENT | Phone: | [phone] Phone: | | | | | VISIT 25 | [phone] | [phone] | | | | | MINUTES | Fax: | Fax: | | | | | | [phone] | [phone] | +--------+--------+ + + + + Encounter Details +--------+ + + + + | Date | Type | Department | Care Team | Description | +--------+ + + + + | 04/04/ | Hospital | [facility] | [facility] | Rectal cancer (HCC) | | 2015 | Encounter | [facility] | MD Casimiro [address] | (Primary Dx) | | | | [facility] [address] | [address] | | | | | [address] | [place] [address] | | | | | [place] [address] | [phone] | | | | | [phone] | | | +--------+ + + + [...] + + + | Blood Pressure | 129/82 | 04/04/2015 10:26 AM | | | | | PDT | | + + + + + | Pulse | 81 | 04/04/2015 10:26 AM | | | | | PDT | | + + + + + | Temperature | 36.5 C (97.7 F) | 04/04/2015 10:26 AM | | | | | PDT | | + + + + + | Respiratory Rate | 16 | 04/04/2015 10:27 AM | | | | | PDT | | + + + + + | Oxygen Saturation | 98% | 04/04/2015 10:26 AM | | | | | PDT | | + + + + + | Inhaled Oxygen | - | - | | | Concentration | | | | + + + + + | Weight | 94.2 kg (207 lb 10.8 | 04/04/2015 10:26 AM | | | | oz) | PDT | | + + + + + | Height | - | - | | + + + + + | Body Mass Index | 34.19 | 01/31/2015 11:35 AM | | | [...] encounter Progress Notes Wing Frank MD - 04/04/2015 10:44 AM PDTFormatting of this note might be diff erent from the original. Patient is a 49 y.o. female seen today, 04/04/2015, for chemotherapy with CapOx for rectal c ancer. Today is day 1/cycle 4 of therapy. Patient complaints: none Symptoms are stable during the past 24 hours. Advance Directives: not addressed Appropriate portions of the patient's past medical, surgical, family, and social history we re reviewed and updated. Review of Systems Constitutional: Denies fatigue. Denies high fevers, shaking chills, anorexia, nausea, vomit ing or night sweats. Appetite without changes. Pt states having a poor appetite until yester day pt has lost 8lbs since last visit. Ear, Nose, Mouth, Throat: Denies odynophagia, dysphagia, or tinnitus. Cardiovascular: Denies shortness of breath, dyspnea on exertion, chest pain, palpitations o r orthopnea. Respiratory: Denies cough, hemoptysis, or sputum production. Gastrointestinal: Denies abdominal pain, constipation, diarrhea, melena, or bright red bloo d per rectum. Genitourinary: Denies hematuria or dysuria. Musculoskeletal: Denies joint pain or tenderness. Neurologic: Pt states unchanged headache. Denies visual changes or numbness/tingling of the extremities. Endocrine: Denies peripheral edema or heat/cold intolerance. Pt states unchanged edema in t he left leg. Hematologic: Denies spontaneous bruising or bleeding. Integumentary: Denies rash, wounds or other skin concerns. Pain: Denies pain. Objective: BP 129/82 | Pulse 81 | Temp(Src) 36.5 C (97.7 F) (Oral) | Resp 16 | Wt 94.2 kg (207 lb 10.8 oz) | SpO2 98% General appearance: alert, appears stated age and cooperative Data Review CBC: Lab Results Component Value Date WBC 4.4 04/04/2015 RBC 3.81 04/04/2015 BMP: Lab Results Component Value Date CO2 23* 04/04/2015 BUN 13 04/04/2015 CALCIUM 9.4 04/04/2015 Assessment: Active Problems: 1. Rectal cancer (HCC) Plan: The patient has a documented plan of care to address pain. Plans for fourth and final cycle postsurgical adjuvant chemotherapy by mutual agreement wit h the patient taking into account cumulative toxicity impairing patient's ability to work. Plans today for follow-up outlining a program of tumor surveillance. This will take the fo rm of quarterly visits, history and physical exam, laboratory monitoring and periodic survei llance colonoscopy. Jen Rodriguez CMA - 04/04/2015 10:27 AM PDTREVIEW OF SYSTEMS Constitutional: Denies fatigue. Denies high fevers, shaking chills, anorexia, nausea, vomit ing or night sweats. Appetite without changes. Pt states having a poor appetite until yeste rday pt has lost 8lbs since last visit. Ear, Nose, Mouth, Throat: Denies odynophagia, dysphagia, or tinnitus. Cardiovascular: Denies shortness of breath, dyspnea on exertion, chest pain, palpitations o r orthopnea. Respiratory: Denies cough, hemoptysis, or sputum production. Gastrointestinal: Denies abdominal pain, constipation, diarrhea, melena, or bright red bloo d per rectum. Genitourinary: Denies hematuria or dysuria. Musculoskeletal: Denies joint pain or tenderness. Neurologic: Pt states unchanged headache. Denies visual changes or numbness/tingling of the extremities. Endocrine: Denies peripheral edema or heat/cold intolerance. Pt states unchanged edema in t he left leg. Hematologic: Denies spontaneous bruising or bleeding. Integumentary: Denies rash, wounds or other skin concerns. Pain: Denies pain. Note: Pt states some sore mid to upper back (muscle discomfort). Pt is here for tx and labs My chart: documented in this encounter Plan of Treatment Not on filedocumented as of this encounter Procedures + +--------+ + + + | Procedure Name | Priori | Date/Time | Associated Diagnosis | Comments | | | ty | | | | + +--------+ + + + | CBC WITH | STAT | 04/04/2015 | Rectal cancer | Results for this | | DIFFERENTIAL | | 9:35 AM | (HCC) | procedure are in the | | | | PDT | | results section. | + +--------+ + + + | LACTATE | STAT | 04/04/2015 | Rectal cancer | Results for this | | DEHYDROGENASE | | 9:35 AM | (HCC) | procedure are in the | | | | PDT | | results section. | + +--------+ + + + | CEA | STAT | 04/04/2015 | Rectal cancer | Results for this | | | | 9:35 AM | (HCC) | procedure are in the | | | | PDT | | results section. | + +--------+ + + + | COMPREHENSIVE | STAT | 04/04/2015 | Rectal cancer | Results for this | | METABOLIC PANEL | | 9:35 AM | (HCC) | procedure are in the | | | | PDT | | results section. | + +--------+ + + + documented in this encounter Results CEA (04/04/2015 9:35 AM PDT) + +-------+ + + + | Component | Value | Ref Range | Performed | Pathologist | | | | | At | Signature | + +-------+ + + + | CEA | 4.8 | 0.0 - 10.0 | [facility] | | | | | ng/mL | [facility] | | | | [...] ST. | [address] | [place], [place] | [phone] | | [facility] | | [address] | | | - LABORATORY | | | | + + + + + CBC with Differential (04/04/2015 9:35 AM PDT) + + + + + + | Component | Value | Ref Range | Performed | Pathologist | | | | | At | Signature | + + + + + + | WBC | 4.4 | 4.0 - 11.0 K/uL | [facility] [...] + + + + | Hematocrit | 33.6 (L) | 34.0 - 47.0 % | [facility] | | | | | | [facility] | | | | | | MEDICAL | | | | | | CENTER - | | | | | | LABORATORY | | + + + + + + | MCV | 88.0 | 83.0 - 101.0 fL | [facility] [...] + + + + | MCHC | 33.0 | 32.0 - 36.0 | [facility] | | | | | g/dL | [facility] | | | | | | MEDICAL | | | | | | CENTER - | | | | | | LABORATORY | | + + + + + + | RDW-CV | 18.2 (H) | <15.0 % | [facility] | | | | | | [facility] | | | | | | MEDICAL | | | | | | CENTER - | | | | | | LABORATORY | | + + + + + + | Platelet | 231 [...] + + + + | % | 67.4 | 45.0 - 82.0 % | [facility] | | | Neutrophils | | | [facility] | | | | | | MEDICAL | | | | | | CENTER - | | | | | | LABORATORY | | + + + + + + | % | 16.3 (L) | 20.0 - 45.0 % | [facility] | | | Lymphocytes | | | [facility] | | | | | | MEDICAL | | | | | | CENTER - | | | | | | LABORATORY | | + + + + + + | % Monocytes | 11.8 | 4.0 - 12.0 % | [facility] | | | | | | [facility] | | | | | | MEDICAL | | | | | | CENTER - | | | | | | LABORATORY | | + + + + + + | % | 3.9 | 0.0 - 5.0 % | [facility] | | | Eosinophils | | | [facility] | | [...] + + + + | Absolute | 3.00 | 1.80 - 8.50 | [facility] | [...] + | [facility] | [address] | [place], [place] | [phone] | | [facility] | | [address] | | | - LABORATORY | | | | + + + + + Lactate Dehydrogenase (04/04/2015 9:35 AM PDT) + +---------+ + + + | Component | Value | Ref Range | Performed | Pathologist | | | | | At | Signature | + +---------+ + + + | LDH TOTAL | 197 (H) | 91 - 180 U/L | [facility] | | | | | [...] [address] | [place] | [phone] | | [facility] | | [address] | | | - LABORATORY | | | | + + + + + Comprehensive Metabolic Panel (04/04/2015 9:35 AM PDT) + + + + + [...] + + + + | Cl | 105 | 98 - 109 mmol/L | [facility] [...] + + + + | Glucose | 127 (H) | 70 - 109 mg/dL | [facility] | | | | | | [facility] | | | | | | MEDICAL | | | | | | CENTER - | | | | | | LABORATORY | | + + + + + + | BUN | 13 | 7 - 18 mg/dL | [facility] | | | | | | [facility] | | | | | | MEDICAL | | | | | | CENTER - | | | | | | LABORATORY | | + + + + + + | Creatinine | 1.03 | 0.60 - 1.30 | [facility] | | | | | mg/dL | [facility] | | | | | | MEDICAL | | | | | | CENTER - | | | | | | LABORATORY | | + + + + + + | eGFR if not | 57 (L)Comment: | >=60 | [facility] | | | | GLOMERULAR FILTRATION | mL/min/1.73m2 | [facility] | | | [facility] | RATE,ESTIMATED | | MEDICAL | | | | mL/min/1.46m4Jtky than | | CENTER - | | [...] + + + + | Albumin | 3.7 | 3.2 - 5.0 g/dL | [facility] [...] + + + + | Total | 6.7 | 6.0 - 7.8 g/dL | [facility] | | | Protein | | | [facility] | | | | | | MEDICAL | | | | | | CENTER - | | | | | | LABORATORY | | + + + + + + | AST | 52 (H) | 10 - 42 U/L | [facility] | | | | | | [facility] | | | | | | MEDICAL | | | | | | CENTER - | | | | | | LABORATORY | | + + + + + + | ALT | 44 | 6 - 45 U/L | [facility] | | | | | | [facility] | | | | | | MEDICAL | | | | | | CENTER - | | | | | | LABORATORY | | + + + + + + | Alkaline | 68 | 40 - 110 U/L | [facility] [...] + + + + | BUN/Creatin | 12.6 | | [facility] | | | ine [...] + | [facility] | [address] | [place] | [phone] | | [facility] | | [address] | | | - LABORATORY | | | | + + + + + documented in this encounter Visit Diagnoses + + | Diagnosis | + + | Rectal cancer (HCC) - Primary Malignant neoplasm of rectum | + + documented in this encounter"
--- OUTSIDE RECORDS SUMMARY | ~2020-02-23 | XMS | Encounter Summary ---
Demographics + + + | Address | [address] [facility] [facility] [address] | | | [place] [address] | + + + | Home Phone [...] Team Providers + +------+ + | Care Ctrs Name | Role | Phone | + [...] | | | | Procedures | [place], [place] | [address] [facility] | | | | | [place] OFFICE | [address] | [facility] | | | | | OUTPATIENT | Phone: | [phone] Phone: | | | | | VISIT 25 | [phone] | [phone] | | | | | MINUTES | Fax: | Fax: | | | | | | [phone] | [phone] | +--------+--------+ + + + + Encounter Details +--------+ + + + + | Date | Type | Department | Care Team | Description | +--------+ + + + + | 11/03/ | Hospital | [facility] | [facility] | Rectal cancer (HCC) | | 2015 | Encounter | [facility] | MD Casimiro [address] | (Primary Dx) | | | | [facility]OGY CLINIC [address] | [address] | | | | | [address] | [place] [address] | | | | | [place] [address] | [phone] | | | | | [phone] | | | +--------+ + + + [...] + + + | Blood Pressure | 143/82 | 11/03/2014 2:33 PM | | | | | PST | | + + + + + | Pulse | 99 | 11/03/2014 2:33 PM | | | | | PST | | + + + + + | Temperature | 36.3 C (97.3 F) | 11/03/2014 2:33 PM | | | | | PST | | + + + + + | Respiratory Rate | 18 | 11/03/2014 2:33 PM | | | | | PST | | + + + + + | Oxygen Saturation | 99% | 11/03/2014 2:33 PM | | | | | PST | | + + + + + | Inhaled Oxygen | - | - | | | Concentration | | | | + + + + + | Weight | 105.1 kg (231 lb | 11/03/2014 2:33 PM | | | | 11.3 oz) [...] of this encounter Progress Notes Jen Doherty, JUAN JOSE - 11/03/2014 2:35 PM PSTREVIEW OF SYSTEMS Constitutional: Pt reports fatigue. Denies high fevers, shaking chills, anorexia, nausea, v omiting, weight loss, or night sweats. Appetite without changes.Pt reports nausea. Ear, Nose, Mouth, Throat: Denies odynophagia, dysphagia, or tinnitus. Cardiovascular: Denies shortness of breath, dyspnea on exertion, chest pain, palpitations o r orthopnea. Respiratory: Denies cough, hemoptysis, or sputum production. Gastrointestinal: Denies abdominal pain, constipation, diarrhea, melena, or bright red bloo d per rectum.Pt some pains in the rectum described as sharp pain and this is new. Genitourinary: Denies hematuria or dysuria. Musculoskeletal: Denies joint pain or tenderness. Neurologic: Denies headache, visual changes, or numbness/tingling of the extremities. Endocrine: Denies peripheral edema or heat/cold intolerance. Hematologic: Denies spontaneous bruising or bleeding. Integumentary: Denies rash, wounds or other skin concerns. Pain: Denies pain. Note: Pt is here for follow up and labs,Pt states she is depressed and is worsening. My chart: documented in this encounter Plan of Treatment Not on filedocumented as of this encounter Procedures + +--------+ + + + | Procedure Name | Priori | Date/Time | Associated Diagnosis | Comments | | | ty | | | | + +--------+ + + + | CBC W/AUTO | STAT | 11/03/2014 | Rectal cancer | Results for this | | DIFFERENTIAL | | 2:11 PM | (HCC) | procedure are in the | | | | PST | | results section. | + +--------+ + + + documented in this encounter Results CBC w/ Auto Differential (11/03/2014 2:11 PM [...] + | [facility] | [address] | [place] | [phone] | | [facility] | | [address] | | | - LABORATORY | | | | + + + + + | [facility] | [address] | [place], [place] | | | [facility] | | [address], [facility] | | | - LABORATORY | | | | + + + + + documented in this encounter Visit Diagnoses + + | Diagnosis | + + | Rectal cancer (HCC) - Primary Malignant neoplasm of rectum | + + documented in this encounter"
--- OUTSIDE RECORDS SUMMARY | ~2020-02-23 | XMS | Encounter Summary ---
Demographics + + + | Address | [address] | | | [place] [address] | + + + | Home Phone [...] + + + | Author | [facility] | | | and [place] | + + + | Organization | [facility] | | | [...] Team Providers + +------+ + | Care Cash Manager Name | Role | Phone | + +------+ + | Cindy Miramontes MD | PCP | | + +------+ + Reason for Visit + + + | Reason | Comments | + + + | Follow-up | | + + + Encounter Details +--------+ + + + + | Date | Type | Department | Care Team | Description | +--------+ + + + + | 01/31/ | Hospital | [facility] | Artur, | Rectal cancer (HCC) | | 2015 | Encounter | [facility] | Randa Crockett MD [address] | | | | [facility] [address] | [address] | | | | | [address] | [place] [address] | | | | | [place] [address] | [phone] | | | | | [phone] | | | +--------+ + + + [...] + + + | Blood Pressure | 103/70 | 01/31/2015 11:35 AM | | | | | PDT | | + + + + + | Pulse | 99 | 01/31/2015 11:35 AM | | | | | PDT | | + + + + + | Temperature | 37.3 C (99.1 F) | 01/31/2015 11:35 AM | | | | | PDT | | + + + + + | Respiratory Rate | 18 | 01/31/2015 11:35 AM | | | | | PDT | | + + + + + | Oxygen Saturation | 98% | 01/31/2015 11:35 AM | | | | | PDT | | + + + + + | Inhaled Oxygen | - | - | | | Concentration | | | | + + + + + | Weight | 98.2 kg (216 lb 7.9 | 01/31/2015 11:35 AM | | | | oz) | PDT | | + + + + + | Height | 166 cm (5' 5.35") | 01/31/2015 11:35 AM | | | | | PDT | | + + + + + | Body Mass Index | 35.64 | 01/31/2015 11:35 AM | | | [...] documented as of this encounter Progress Notes Randa Nina MD - 01/31/2015 8:33 PM PDTFormatting of this note might be differe nt from the original. Hematology/Oncology Progress Note [facility] Pt. Name/Age/: Bryanna Stephenson 49 y.o. 1965 Med. Record Number: [id number] Date of admission: 01/31/2015 Identifying Statement: Bryanna Stephenson is a 49 y.o. female from [address] [facility] [address] with Stage IIA rectal cancer. The patient chart and medications were reviewed in detail and the patient was seen and exam ined. History of Present Illnesses, their Current Assessments and Plans: Problems That Were Updated This Visit Rectal cancer Overview ACTIVE DIAGNOSIS: [id number], endoscopically staged IIA rectal cancer. 1. 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 Ronaldo Hess, [facility] , Nov, 2014 with no histologically identifiable residual disease, Thus ypT0,N0 (0/7), M0 Current Assessment & Plan Extended office encounter with Bryanna and her family discussing the use of adjuvant Cape Ox for the adjuvant treatment of her rectal cancer. This is an NCCN preferred regimen. The p rescription is for four cycles of XELODA at 2000 mg po bid for 10 days on/11 days off given concurrently with intravenous oxaliplatin every 21 days. The dose of oxaliplatin can be redu tierney from 130 mg/m2 to 100 mg/2 without reducing efficacy and with better tolerance. Side effect if chemotherapy induced diarrhea was discussed in detail and the need to contac t the cancer center promptly if ostomy output becomes excessive. The risk of febrile neutrop enia was also discussed in detail an the need to contact the Cancer Center promptly if tempe rature is 101 deg F or higher. INFORMED CONSENT: The nature and character of the proposed treatment with CapeOx and the an ticipated results of the proposed treatment with CapeOx;recognized alternative forms of cari tment, including non-treatment; the risks benefits, and side effects of proposed treatment, alternative treatments and non-treatment were discussed with the patient who consents to pro ceed with treatment with CapeOx. The treating provider has examined the patient and reviewed the diagnostic data, including laboratory data, and deems that it is safe and appropriate t o proceed with treatment with CapeOx. Past Medical History Diagnosis Date Broken arm age 12 Broken leg age 4 Concussion 12/25 MRSA infection Past Surgical History Procedure Laterality Date Cyst 05/27 removed from left axilla History Social History Marital Status: Single Spouse Name: N/A Number of Children: N/A Years of Education: N/A Occupational History Not on file. Social History Main Topics Smoking status: Former Smoker Types: Cigarettes Smokeless tobacco: Never Used Comment: Pt in here life time has only smoked a pack, and workinks in a [employer] Alcohol Use: Yes Drug Use: No Sexual Activity: Not on file Other Topics Concern Not on file Social History Narrative Pt is a 49 year old female from [facility]. 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 Family History Problem Relation Age of Onset Lung cancer Father Lung cancer Paternal Aunt Patient Active Problem List Diagnosis Rectal cancer Rectal cancer Review of Systems: REVIEW OF SYSTEMS Constitutional: Reports that her energy level is fair. She is working at her job but anythi ng that requires bending or lifting she can't do. Denies high fevers, shaking chills. Report s that her appetite is OK. Denies nausea or vomiting. Weight loss of 1.3 kg noted this visit . Reports that she has had occasional night sweats. Ear, Nose, Mouth, Throat: Denies odynophagia, dysphagia, or tinnitus. Cardiovascular: Denies shortness of breath, dyspnea on exertion, chest pain, palpitations o r orthopnea. Respiratory: Denies cough, hemoptysis, or sputum production. Gastrointestinal: Denies abdominal pain. Reports that her ileostomy is working OK with no s ign of blood in her stool. Reports that she does have questions about how the chemotherapy w ill effect the functioning of her ostomy. Genitourinary: Denies hematuria or dysuria. Musculoskeletal: Denies joint pain or tenderness. Neurologic: Reports that she has been having frequent headaches. Denies visual changes. Rep orts that she has intermittent tingling in her hands since the last time that she took the X eloda. Endocrine: Reports that she has chronic swelling in her lower left leg. Denies heat/cold in tolerance. Hematologic: Denies spontaneous bruising or bleeding. Integumentary: Denies rash, wounds or other skin concerns. Pain: Denies pain at this time. Note: Here today for followup, lab and her first chemo. Education provided on the use of Xe loda. States that she took a course of the Xeloda during her course of radiation. States freddie t she wonders how the chemotherapy will effect the functioning of her ileostomy. She also st ates that when she takes a pill, it frequently comes out whole in her ileostomy and she wond ers if this will be the case with the Xeloda. My chart:active Review of systems as above otherwise negative Scheduled Medications: Patient Reported Taking Medication Dosage aspirin 81 mg chewable tablet (Taking) Take 81 mg by mouth Daily. Number of times this order has been changed since signin Order Aud[facility] [place] CHOLECALCIFEROL (Taking) 1,000 Units by Does not apply route. Number of times this order has been changed since signin Order [facility]it [place] ibuprofen (ADVIL,MOTRIN) 600 MG tablet (Taking) Take 600 mg by mouth every 6 hours as nee ded. Number of times this order has been changed since signin Order Audit [place] LISINOPRIL PO (Taking) Take 10 mg by mouth. Number of times this order has been changed since signin Order Audit [place] Loperamide HCl (IMODIUM PO) (Taking) Take by mouth. Number of times this order has been changed since signin Order Audit [place] metFORMIN (GLUCOPHAGE) 500 mg tablet (Taking) Take 500 mg by mouth 2 times daily (with br eakfast & dinner). Number of times this order has been changed since signin Order Audit [place] non-formulary medication (Taking) Citracel Number of times this order has been changed since signin Order Audit [place] OMEGA 3 1000 MG CAPS (Taking) Take by mouth. Number of times this order has been changed since signin Order Audit [place] ondansetron (ZOFRAN) 8 MG tablet (Taking) Take one tablet every 8 hours as needed for ainsley sea Number of times this order has been changed since signin Order Audit [place] Allergy: No Known Allergies Objectives: Temp: 37.3 C (99.1 F) BP: 103/70 mmHg Pulse: 99 Resp: 18 SpO2: 98 % on Min/Max Temp past 24 hours:Temp Av.3 C (99.1 F) Min: 37.3 C (99.1 F) Max: 3 7.3 C (99.1 F) No intake or output data in the 24 hours ending 01/31/152034 Wt. Admission: Weight: 98.2 kg (216 lb 7.9 oz) Wt. Current: Weight: 98.2 kg (216 lb 7.9 oz) Wt Readings from Last 3 Encounters: 01/31/15 98.2 kg (216 lb 7.9 oz) 01/19/15 101.1 kg (222 lb 14.2 oz) 12/29/14 99.6 kg (219 lb 9.3 oz) Physical Exam: Exam: General: The patient is alert and oriented. No acute distress. Eyes: Conjunctiva clear. Sclera anicteric. ENMT: Oropharynx fee of lesions, mucous membranes moist. Cardiovascular: Regular rate and rhythm, no rubs, gallops, or murmurs. Respiratory: Clear to auscultation and percussion. Abdomen: Soft, nontender, no hepatospenomegaly. No palpable masses. Bowel sounds present. Ostomy intact in the right lower quadrant with liquid brown contents. Extremities: Nontender, no erythema, no edema. Skin: No rashes, bruising, or petechiae. Lymph: No palpable nodes in the neck, supraclavicular fossa, axilla or groin. Neurological: Cranial nerves are intact. Normal sensory and motor function, No focal defi cits noted. Muscular/Skeletal: No acute bony tenderness. No evidence of sarcopenia. Psychiatric: Normal mood and affect. ECOG Performance Status [x] 0 [] 1 [] 2 []3 [] 4 ECOG PERFORMANCE STATUS* Grade ECOG Karnofsky 0 Fully active, able to carry on all pre-disease performance without restriction. 90 - 100 1 Restricted in physically strenuous activity but ambulatory and able to carry out work of a light or sedentary nature, e.g., light house work, office work 70 - 80 2 Ambulatory and capable of all selfcare but unable to carry out any work activ ities. Up and about more than 50% of waking hours 50 - 60 3 Capable of only limited selfcare, confined to bed or chair more than 50% of w aking hours 30 - 40 4 Completely disabled. Cannot carry on any selfcare. Totally confined to bed or chair 10 - 20 * As published in Am. J. Clin. Oncol.: Mukesh Anthony., Jose Alfredo Ashton., Rafita Reid., Elliot Adames., Jason TGodwin., Gilmar Silverio., Rosalinda, P .P.: Toxicity And Response Criteria Of The Eastern Cooperative Oncology Group. Am J Clin Onc ol 5:649-655, 1982. The ECOG Performance Status is in the public domain therefore available for public use. To duplicate the scale, please cite the reference above and credit the Eastern Cooperative Onco logy Group, Randa Kohli M.D., Group Chair Diagnostic studies: Available data and images were reviewed personally. See reports. Significant results and findings are addressed here or in the Assessment and Plan. Results for BRYANNA STPEHENSON ( ) as of 01/31/2015 20:20 Ref. Range 01/31/2015 10:58 WBC Latest Range: 4.0-11.0 K/uL 5.2 RBC: Latest Range: 3.70-5.20 M/uL 4.19 Hgb Latest Range: 11.5-16.0 g/dL 12.0 Hct, Final Latest Range: 34.0-47.0 % 35.7 MCV Latest Range: 83.0-101.0 fL 85.4 MCH Latest Range: 28.0-35.0 pg 28.6 MCHC Latest Range: 32.0-36.0 g/dL 33.5 RDW Latest Range: <15.0 % 14.0 Platelet Count Latest Range: 140-440 K/uL 235 MPV No range found 8.1 Absolute Neutrophils Latest Range: 1.80-8.50 K/uL 3.70 Absolute Lymphocytes Latest Range: 0.60-3.20 K/uL 0.90 Absolute Monocytes Latest Range: 0.00-1.00 K/uL 0.30 Absolute Eosinophils Latest Range: 0.00-0.40 K/uL 0.30 Absolute Basophils Latest Range: 0.00-0.10 K/uL 0.00 % Neutrophils Latest Range: 45.0-82.0 % 71.2 % Lymphocytes Latest Range: 20.0-45.0 % 16.3 (L) % Monocytes Latest Range: 4.0-12.0 % 6.2 % Eosinophils Latest Range: 0.0-5.0 % 5.4 (H) % Basophils Latest Range: 0.0-1.0 % 0.9 NA Latest Range: 136-149 mmol/L 138 K Latest Range: 3.5-5.1 mmol/L 4.4 CL Latest Range: 98-109 mmol/L 106 CO2 Latest Range: 24-31 mmol/L 21 (L) ANION GAP Latest Range: 3-16 mmol/L 11 GLUCOSE Latest Range: 70-109 mg/dL 156 (H) BUN Latest Range: 7-18 mg/dL 23 (H) BUN/CREA No range found 21.5 CREA Latest Range: 0.60-1.30 mg/dL 1.07 ALBUMIN Latest Range: 3.2-5.0 g/dL 4.0 Albumin/Globulin ratio No range found 1.3 Total protein Latest Range: 6.0-7.8 g/dL 7.1 EGFR IF NOT Latest Range: >=60 mL/min/1.73m2 55 (L) Calcium Latest Range: 8.3-10.5 mg/dL 9.6 ALK PHOS Latest Range: 40-110 U/L 61 ALT (SGPT) (REF) Latest Range: 6-45 U/L 43 AST Latest Range: 10-42 U/L 30 LD TOTAL Latest Range: 91-180 U/L 151 BILIRUBIN TOTAL Latest Range: 0.1-1.5 mg/dL 0.6 GLOBULIN No range found 3.1 CEA Latest Range: 0.0-10.0 ng/mL 4.0 Pharmacovigilance: IDT PATIENT MEDICATION/PROFILE REVIEW [facility] Pharmacy Recommendation XX Observation only Pharmacy Assessment Therapy emetogenicity risk vs. supportive meds ordered: High/Appropriate Drug interactions of concern: None (with or without HRT) Allergy/Duplicate/Contraindications/Other: None Lab-based dose adjustments suggested: None VTE Risk Factors Identified: VTE risk(s) in this patient include BMI 35 kg/m2 or higher (36 .14). [Per Khorana Predictive Model for Chemotherapy-Associated VTE (NCCN Cancer-Associated Guidelines version 2.2014).] XXKhorana risk score= 1-2 (risk of symptomatic VTE 1.8-8.4%): Consider periodically re-asse ssing risk for VTE. Cardiac toxicity risks/recommended monitoring: None Oral Chemo being filled at no charge at [facility] in [place] Objective Data Bryanna Stephenson is a 49 y.o. female , Wt 99.6kg, Ht 166cm, BSA 2.16m2, BMI 36.14 kg/m2, Est CrCl~93mL/min per Cockcroft & Gault (Adj BW) (pt is 72% above IBW of 58kg) Allergies : None Diagnosis: Low lying rectal adenocarcinoma Stage IIA, uT3, N0, M0 but has had excellent and complete histologic response to neoadjuvant chemoradiotherapy , Aug-Sep, 2014 and S/p Lapar ascopic, low abdominal proctectomy, colo-anal anastamosis, Dr. Ronaldo Hess, [facility], Nov, with no histologically identifiable residual disease ( ypT0,N0 (0/7), M0). Treatment Regimen: Capecitabine 1000 mg/m2 (2000mg) by mouth twice daily days 1-10 then off for 11 days + oxaliplatin 130 mg/m2 [...] for therapy: Samantha LIMON, Cricket Zarate, Yun J, et al, "Capecitabine Plus Oxaliplatin Compared With Fluorouracil and Folinic Acid as Adjuvant Therapy for Stage III C olon Cancer," J Clin Oncol, 2011, 29(11):1465-71 Pérez Hayo J, Lizy C, et al, "XELOX (Capecitabine Plus Oxaliplatin): Active Fi rst-Line Therapy for Patients With Metastatic Colorectal Cancer," J Clin Oncol, 2004, 22(11) :7019-13 Pertinent Medical History: has a past medical history of Broken arm; Broken leg; Concussio n; and MRSA infection. Other pertinent objective data: Patient also has history of smoking and alcohol use. She h as previously been on HRT for abnormal vaginal bleeding (not sure if she is still taking) an d is taking metfromin and is 72% above IBW w/ BMI of 36.69 kg/m2. She has had about a [address] intentional weight loss since diagnosis. Current Medications: Current Outpatient Prescriptions on File Prior to Encounter Medication Sig Dispense Refill aspirin 81 mg chewable tablet Take 81 mg by mouth Daily. CHOLECALCIFEROL 1,000 Units by Does not apply route. LISINOPRIL PO Take 10 mg by mouth. metFORMIN (GLUCOPHAGE) 500 mg tablet Take 500 mg by mouth 2 times daily (with breakfa st & dinner). OMEGA 3 1000 MG CAPS [...] signed by: Iveth Botello RPH 01/25/2015 13:41 Palliative Care: No new issues addressed. RANDA NINA MD Portions of this chart may have been created with [employer] voice recognition software. Occasi onal wrong-word or sound-alike substitutions may have occurred due to the inherent rutherford itations of voice recognition software. Please read the chart carefully and recognize, using context, where these substitutions have occurred. Kraig Uribe RN - 01/31/2015 11:42 AM PDTREVIEW [email or web address] Constitutional: Reports that her energy level is fair. She is working at her job but anyth ing that requires bending or lifting she can't do. Denies high fevers, shaking chills. Repo rts that her appetite is OK. Denies nausea or vomiting. Weight loss of 1.3 kg noted this v isit. Reports that she has had occasional night sweats. Ear, Nose, Mouth, Throat: Denies odynophagia, dysphagia, or tinnitus. Cardiovascular: Denies shortness of breath, dyspnea on exertion, chest pain, palpitations o r orthopnea. Respiratory: Denies cough, hemoptysis, or sputum production. Gastrointestinal: Denies abdominal pain. Reports that her ileostomy is working OK with no sign of blood in her stool. Reports that she does have questions about how the chemotherapy will effect the functioning of her ostomy. Genitourinary: Denies hematuria or dysuria. Musculoskeletal: Denies joint pain or tenderness. Neurologic: Reports that she has been having frequent headaches. Denies visual changes. R eports that she has intermittent tingling in her hands since the last time that she took the Xeloda. Endocrine: Reports that she has chronic swelling in her lower left leg. Denies heat/cold i ntolerance. Hematologic: Denies spontaneous bruising or bleeding. Integumentary: Denies rash, wounds or other skin concerns. Pain: Denies pain at this time. Note: Here today for followup, lab and her first chemo. Education provided on the use of Xeloda. States that she took a course of the Xeloda during her course of radiation. States that she wonders how the chemotherapy will effect the functioning of her ileostomy. She al so states that when she takes a pill, it frequently comes out whole in her ileostomy and she wonders if this will be the case with the Xeloda. My chart:active d ocumented in this encounter Plan of Treatment Not on filedocumented as of this encounter Procedures + +--------+ + + + | Procedure Name | Priori | Date/Time | Associated Diagnosis | Comments | | | ty | | | | + +--------+ + + + | CBC WITH | STAT | 01/31/2015 | Rectal cancer | Results for this | | DIFFERENTIAL | | 10:58 AM | (HCC) | procedure are in the | | | | PDT | | results section. | + +--------+ + + + | LACTATE | STAT | 01/31/2015 | Rectal cancer | Results for this | | DEHYDROGENASE | | 10:58 AM | (HCC) | procedure are in the | | | | PDT | | results section. | + +--------+ + + + | CEA | STAT | 01/31/2015 | Rectal cancer | Results for this | | | | 10:58 AM | (HCC) | procedure are in the | | | | PDT | | results section. | + +--------+ + + + | COMPREHENSIVE | STAT | 01/31/2015 | Rectal cancer | Results for this | | METABOLIC PANEL | | 10:58 AM | (HCC) | procedure are in the | | | | PDT | | results section. | + +--------+ + + + documented in this encounter Results CBC with Differential (01/31/2015 10:58 AM PDT) + + + + + [...] + + + + | RBC | 4.19 | 3.70 - 5.20 | [facility] | [...] + + + + | Hematocrit | 35.7 | 34.0 - 47.0 % | [facility] [...] + + + + | MCH | 28.6 [...] + + + + | RDW-CV | 14.0 | <15.0 % | [facility] | | | | | | [facility] | | | | | | [facility]ICAL | | | | | | C[facility] - | | | | | | LABORATORY | | + + + + + + | Platelet | 235 | 140 - 440 K/uL | [facility] [...] + + + + | % | 71.2 | 45.0 - 82.0 % | [facility] [...] + + + | % Monocytes | 6.2 | 4.0 - 12.0 % | [facility] | | | | | | [facility] | | | | | | MEDICAL | | | | | | CENTER - | | | | | | LABORATORY | | + + + + + + | % | 5.4 (H) | 0.0 - 5.0 % | [facility] [...] | | Neutrophils | | K/uL | [facility] | | | | | | MEDICAL | | | | | | CENTER - | | | | | | LABORATORY | | + + + + + + | Absolute | 0.90 [...] | Absolute | 0.30 | 0.00 - 0.40 | [facility] | [...] + | [facility] | [address] | [place] | [phone] | | [facility] | | [address] | | | - LABORATORY | | | | + + + + + Lactate Dehydrogenase (01/31/2015 10:58 AM PDT) + +-------+ + + + | Component | Value | Ref Range | Performed | Pathologist | | | | | At | Signature | + +-------+ + + + | LDH TOTAL | 151 | 91 - 180 U/L | [facility] | | | | | | [facility] [...] [address] | [place] | [phone] | | [facility] | | [address] | | | - LABORATORY | | | | + + + + + Comprehensive Metabolic Panel (01/31/2015 10:58 AM PDT) + + + + + + | Component | Value | Ref Range | Performed | Pathologist | | | | | At | Signature | + + + + + + | Na | 138 | 136 - 149 | [facility] | | | | | mmol/L | [facility] | | | | | | MEDICAL | | | | | | CENTER - | | | | | | LABORATORY | | + + + + + + | K | 4.4 | 3.5 - 5.1 | [facility] | [...] + + + + | Glucose | 156 (H) | 70 - 109 mg/dL | [facility] | | | | | | [facility] | | | | | | MEDICAL | | | | | | CENTER - | | | | | | LABORATORY | | + + + + + + | BUN | 23 (H) | 7 - 18 mg/dL | [facility] | | | | | | [facility] | | | | | | MEDICAL | | | | | | CENTER - | | | | | | LABORATORY | | + + + + + + | Creatinine | 1.07 | 0.60 - 1.30 | [facility] | | | | | mg/dL | [facility] | | | | | | MEDICAL | | | | | | CENTER - | | | | | | LABORATORY | | + + + + + + | eGFR if not | 55 (L)Comment: | >=60 | [facility] | | | | GLOMERULAR FILTRATION | mL/min/1.73m2 | [facility] | | | [facility] | RATE,ESTIMATED | | MEDICAL | | | | mL/min/1.27p6Nbuq than | | CENTER - | | [...] + + + + | Alkaline | 61 | 40 - 110 U/L | [facility] [...] | | bulin Ratio | | | [facility] | | | | | | MEDICAL | | | | | | CENTER - | | | | | | LABORATORY | | + + + + + + | BUN/Creatin | 21.5 | | [facility] | | | ine Ratio | | | [facility] | | [...] [address] | [place] | [phone] | | [facility] | | [address] | | | - LABORATORY | | | | + + + + + CEA (01/31/2015 10:58 AM PDT) + +-------+ + + + | Component | Value | Ref Range | Performed | Pathologist | | | | | At | Signature | + +-------+ + + + | CEA | 4.0 | 0.0 - 10.0 | [facility] | [...] [address] | [place] | [phone] | | [facility] | | [address] | | | - LABORATORY | | | | + + + + + documented in this encounter Visit Diagnoses + + | Diagnosis | + + | Rectal cancer (HCC) Malignant neoplasm of rectum | + + documented in this encounter
--- OUTSIDE RECORDS SUMMARY | ~2020-02-23 | XMS | Encounter Summary ---
Demographics + + + | Address | [address] [facility] [address] | | | [place] [address] | + + + | Home Phone | | + + + | Preferred Language | Unknown | + + + | Marital Status | Single | + + + | Pentecostal Affiliation | 1041 | + + + | Race | Unknown | + + + | Ethnic Group | Unknown | + + + Author + + + | Author | [facility] | | | and [place] | + + + | Organization | [facility] | | [...] Team Providers + +------+ + | Care Clock Smith Name | Role | Phone | + [...] + + + + | 01/31/ | Documentati | [facility] | Fallon Daniels, | Psychosocial Support | | 2014 | on | [facility] | NUT STEAMER | | | | | ONCOLOGY CLINIC [address] | | | | | | [address] | | | | | | [place] [address] | | | | | | [phone] | | | +--------+ + + + [...] encounter Progress Notes Fallon Daniels MSW - 01/31/2015 6:17 PM PDTPatient, Fang Stephenson, seen for Patient cons ultation. Fang is being treated for rectal cancer. She is single and lives in [facility] her brother. 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 She also has [employer]. Fang presents as alert and oriented X4 . She reports she was taking zoloft for depression but it made her sleepy so she stopped ta rasheed it. There is no evidence of thought disorder or other mental illness. Fang reports l neva of distress was 9 on a 10 point scale this morning in anticipation of chemotherapy. Seth strickland feels better now and rates her distress at this time at 5. She attributes her distress t o the unknown and reports feeling nervous, sad, and worried. She has a stoma and had terribl e difficulty with it leaking - finally she was sent to [facility] where she spent 5 days and it has been resolved. She is anxious to have the surgery to have the stoma taken d own. She reports an adequate support system, good coping skills, and strong timothy - she is a member of [employer]. This social work program coordinator allowed for expression of feeling and provided supportive counseling and information regarding the emotional aspects of a cancer d iagnosis and treatment. Provided Fang with the booklet, "Understanding Chemotherapy". Al so encouraged Fang to access support from this social work program coordinator and apprised her of our suppo rt groups. This social work program coordinator is available to provide emotional support and additional comm unity resource information and referral as needed. Fang is aware of support services and h ow to access them. [facility] will follow up at appointments and by phone as needed.Electronicrhonda y signed by PAULIE Watkins at 01/31/2015 6:25 PM PDTdocumented in this encounter Plan of Treatment Not on filedocumented as of this encounter Visit Diagnoses Not on filedocumented in this encounter
--- OUTSIDE RECORDS SUMMARY | ~2020-02-23 | XMS | Encounter Summary ---
Demographics + + + | Address | [address] [facility] [address] | | | [place] [address] | + + + | Home Phone [...] Team Providers + +------+ + | Care Corrosion Prevention Metal Sprayer Name | Role | Phone | [...] | | | | Malignant | [address] | [place] | | | | | neoplasm of | [place], | [place], [place] | | | | | rectum (HCC) | [place] | [address] Phone: | | | | | Procedures | [address] | [phone] | | | | | [place] OFFICE | Phone: | Fax: | | | | | OUTPATIENT | [phone] | [phone] | | | | | VISIT 25 | Fax: | | | | | | MINUTES | [phone] | | | | | | [address] | | | +--------+--------+ + + + + Encounter Details +--------+ + + + + | Date | Type | Department | Care Team | Description | +--------+ + + + + | 08/25/ | Hospital | [facility] | Wing Frank | Rectal cancer (HCC) | | 2019 | Encounter | [facility] | MD Casimiro [address] | (Primary Dx); | | | | ONCOLOGY CLINIC [address] | [address] [place] | Attention to | | | | [address] [place] | [place] [address] | ileostomy (HCC); | | | | [place] [address] | [phone] | Ileostomy status | | | | [phone] | | (HCC); Malignant | | | [...] from the origi nal. Hem-Onc Progress Note [facility] Pt. Name/Age/: Fang Stephenson 54 y.o. 1965 Med. Record Number: [id number] Date of admission: 08/25/2019 Assessment and plan: 1. 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 Ronaldo Hess, [facility] , Nov, 2014 with [...] of patient's decision not to return to [facility]. We are going to go ahead [...] by: Wing Frank MD, 08/25/2019 2:28 PM [facility] TIME SPENT 25 MIN. > 50% AT BEDSIDE, WITH FAMILY/PATIENT IN CARE AND FRONT END APPLICATION DEVELOPER ON UNIT AND CO ORDINATION OF CARE Portions of this chart may have been created with [employer] voice recognition software. Occasi onal wrong-word or [...] | | | | 1:43 PM | ([facility]) Attention to | procedure are in the | | | | PST | ileostomy ([facility]) | results section. | | | | | Ileostomy status | | | | | | ([facility]) Malignant | | | | | | neoplasm of rectum | | | | | | ([facility]) | | + +--------+ + + + | CBC WITH | STAT | 08/25/2019 | Rectal cancer | Results for this | | DIFFERENTIAL | | 1:43 PM | ([facility]) Attention to | procedure are [...] | | | | 1:43 PM | ([facility]) Attention to | procedure are [...] | | e | 1:43 PM | ([facility]) Attention to | procedure are [...] [address] | [place] | [phone] | | [facility] | | [address] | | | - LABORATORY | | [...] + | [address] | [address] | [place] | [phone] | | [facility] | | [address] | | | - LABORATORY | | [...] mL/min/1.73m2 | [facility] | | | [facility] | RATE,ESTIMATED | | MEDICAL | | | | mL/min/1.38w3Wqyt than | | CENTER - | | [...] [address] | [place] | [phone] | | [facility] | | [address] | | | - LABORATORY | | [...] [address] | [place] | [phone] | | [facility] | | [address] | | | - LABORATORY | | [...] [address] | [place] | [phone] | | [facility] | | [address] | | | - LABORATORY | | [...]
--- OUTSIDE RECORDS SUMMARY | ~2020-02-23 | XMS | Encounter Summary ---
Demographics + + + | Address | [address] [facility] | | | [place] [address] | + + + | Home Phone | | + + + | Preferred Language | Unknown | + + + | Marital Status | Single | + + + | Hoahaoism Affiliation | 1041 | + + + | Race | Unknown | + + + | Ethnic Group | Unknown | + + + Author + + + | Author | [facility] | | | and [place] | + + + | Organization | [facility] | | | [...] Team Providers + +------+ + | Care Factory Supervisor Name | Role | Phone | [...] Rectal | Frida Thapa, | [address] | | | | | cancer (HCC) | MD [address] | [place], | | | | | Procedures | [address] | [place] | | | | | MRI Pelvis | [place], | [address] | | | | | w wo | [place] [address] | Phone: | | | | | Contrast | Phone: | [phone] | | | | | | [phone] | Fax: | | | | | | Fax: | [phone] | | | | | | [phone] | | +--------+--------+ + + + + [...] Rectal | Frida M, | [address] | | | | | cancer (HCC) | MD [address] | [place], | | | | | Procedures | [address] | [place] | | | | | MRI Pelvis | [place], | [address] | | | | | w wo | [place] [address] | Phone: | | | | | Contrast | Phone: | [phone] | | | | | | [phone] | Fax: | | | | | | Fax: | [phone] | | | | | | [phone] | | +--------+--------+ + + + + Encounter Details +--------+ + + + + | Date | Type | Department | Care Team | Description | +--------+ + + + + | 08/10/ | Hospital | [facility] | Frida Oquendo | Rectal cancer (HCC) | | 2013 | Encounter | MED CTR MRI [address] | MMD [address] | | | | | [address] [place], | [place], [place] | | | | | [place] [address] | [address] | | | | | [phone] | | | +--------+ + + + [...] wall is | | seen with intermediate Z2upitmt, mildly increased T2 signal, and patchy heterogeneous [...] + | MISCELLANEOUS LAB | | | [phone] | + +---------+ + + | MISCELANIOUS LAB | | | [phone] | + +---------+ + + documented in [...]
--- OUTSIDE RECORDS SUMMARY | ~2020-02-23 | XMS | Encounter Summary ---
Demographics + + + | Address | [address] [facility] [address] | | | [place] [address] | + + + | Home Phone [...] + + + | Author | [facility] | | | and [place] | + + + | Organization | [facility] | | [...] Team Providers + +------+ + | Care Refinery Operator Reforming Unit Name | Role | Phone | + [...] | Oncology | Diagnoses | Kulwinder, | Monika | | | | | Malignant | MD Cindy | Wing | | | | | neoplasm of | [address] | MD Casimiro | | | | | rectum (HCC) | [address] [place] | [address] | | | | | Procedures | [place], [place] | [place] | | | | | [place] OFFICE | [address] | [place], [place] | | | | | OUTPATIENT | Phone: | [phone] Phone: | | | | | VISIT 25 | [phone] | [phone] | | | | | MINUTES | Fax: | Fax: | | | | | | [phone] | [phone] | +--------+--------+ + + + + Encounter Details +--------+ + + + + | Date | Type | Department | Care Team | Description | +--------+ + + + + | 06/04/ | Hospital | [facility] | Wing Frank | Rectal cancer (HCC) | | 2016 | Encounter | [facility] | MD Casimiro [address] | (Primary Dx); Iron | | | | ONCOLOGY CLINIC [address] | [address] [place] | deficiency anemia | | | | [address] [place] | [place] [address] | due to chronic blood | | | | [place] [address] | [phone] | loss; Anemia | | | | [phone] | | associated with | | | | | | acute blood loss | +--------+ + + + + Social [...] + + + | Blood Pressure | 136/86 | 06/04/2016 10:02 AM | | | | | PDT | | + + + + + | Pulse | 83 | 06/04/2016 10:02 AM | | | | | PDT | | + + + + + | Temperature | 37.1 C (98.7 F) | 06/04/2016 10:02 AM | | | | | PDT | | + + + + + | Respiratory Rate | 16 | 06/04/2016 10:02 AM | | | | | PDT | | + + + + + | Oxygen Saturation | 98% | 06/04/2016 10:02 AM | | | | | PDT | | + + + + + | Inhaled Oxygen | - | - | | | Concentration | | | | + + + + + | Weight | 94 kg (207 lb 3.7 | 06/04/2016 10:02 AM | | | | oz) | PDT | | + + + + + | Height | - | - | | + + + + + | Body Mass Index | 34.11 | 01/31/2015 11:35 AM | | | [...] encounter Progress Notes Wing Frank MD - 06/04/2016 10:13 AM PDTFormatting of this note might be diff erent from the original. Hem-Onc Progress Note [facility] Pt. Name/Age/: Fang Stephenson 51 y.o. 1965 Med. Record Number: [id number] Date of admission: 06/04/2016 Assessment and plan: 1. 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 Ronaldo Hess, [facility] , Nov, 2014 with no histologically identifiable residual disease, Thus ypT0,N0 (0/7), M0 S/p 4 cycles post-surgical adjuvant CapOx chemotherapy: January-March, Counseling session today first offering reassurance with regard to patient's physical exam today which together with earlier laboratory testing reassuring with regard to the likelihoo d of continuation of remission. We suggested continued follow-up surveillance using an ever y 3 month monitoring schedule. Acknowledgment today of likely allergy to nitrofurantoin which we will include in patient's chart and have asked patient to record this in her own cell phone as an indication of such a sensitivity. Subjective: The patient chart and medications were reviewed in detail and the patient was seen and exam ined. Fang Stephenson is a 51 y.o. female returns today for surveillance monitoring because of previous history of primary carcinoma of the rectum. Patient had been well up until most recently when she developed signs and symptoms of her u rinary infection. She had been in the midst of completing a 10 day course of oral nitrofura ntoin when she began to experience symptoms of allergy including itching and a skin rash inv olving the extremities. Despite this patient went on to continue and complete a 10 day cour se of therapy. She has otherwise been well but does describe alternating constipation and diarrhea. She a lso describes an anxiety referable to some of her reading which she has been doing on the In c[employer]. Patient confesses that she has been using her free time to read about others who ar e less fortunate and experienced relapse of their cancer. Unfortunately this has had the ef fect of increasing patient's own anxiety. PSH: Reviewed, no changes to admission H&P. Review of Systems: Constitutional: States fatigue states naps help a lot. Denies high fevers, shaking chills, anorexia, nausea, vomiting, weight loss, or night sweats. Appetite without changes. Weight l oss is 7 lbs. Ear, Nose, Mouth, Throat: Denies odynophagia, dysphagia, or tinnitus. Cardiovascular: Denies shortness of breath, dyspnea on exertion, chest pain, palpitations o r orthopnea. Respiratory: Denies cough, hemoptysis, or sputum production. Gastrointestinal: Denies abdominal pain, melena, or bright red blood per rectum. States bot h constipation and diarrhea. Genitourinary: Denies hematuria or dysuria. Musculoskeletal: Denies joint pain or tenderness. Neurologic: States headaches these have slowed down. Denies visual changes, or numbness/tin gling of the extremities. Endocrine: Denies peripheral edema or heat/cold intolerance. Unchanged edema in the left le g. Hematologic: Denies spontaneous bruising or bleeding. Integumentary: Denies rash, wounds or other skin concerns. Pain: Denies pain. Review of systems as above otherwise negative Scheduled Medications: Continuous Infusions: PRN Meds:. Allergy: Allergies Allergen Reactions Latex Redness and irritation during chemotherapy Nitrofurantoin Rash Objectives: Temp: 37.1 C (98.7 F) BP: 136/86 mmHg Pulse: 83 Resp: 16 SpO2: 98 % on Min/Max Temp past 24 hours:Temp Av.1 C (98.7 F) Min: 37.1 C (98.7 F) Max: 3 7.1 C (98.7 F) No intake or output data in the 24 hours ending 06/04/16 1013 Wt. Admission: Weight: 94 kg (207 lb 3.7 oz) Wt. Current: Weight: 94 kg (207 lb 3.7 oz) Physical Exam: Exam: General: The patient [...] the Assessment and Plan. Recent Labs Lab 06/04/16 0928 WBC 4.5 HGB 10.8* HCT 32.4* PLT 238 Electronically signed by: Wing Frank, 06/04/2016 10:13 [facility] TIME SPENT 20 MIN. > 50% AT BEDSIDE, WITH FAMILY/PATIENT IN CARE AND MICROARRAY OPERATIONS VICE PRESIDENT ON UNIT AND CO ORDINATION OF CARE Portions of this chart may have been created with [employer] voice recognition software. Occasi onal wrong-word or sound-alike substitutions may have occurred due to the inherent rutherford itations of voice recognition software. Please read the chart carefully and recognize, using context, where these substitutions have occurred. Leah Rodriguez, [facility] - 06/04/2016 10:03 AM PDTREVIEW OF SYSTEMS Constitutional: States fatigue states naps help a lot. Denies high fevers, shaking chills, anorexia, nausea, vomiting, weight loss, or night sweats. Appetite without changes. Weight loss is 7 lbs. Ear, Nose, Mouth, Throat: Denies odynophagia, dysphagia, or tinnitus. Cardiovascular: Denies shortness of breath, dyspnea on exertion, chest pain, palpitations o r orthopnea. Respiratory: Denies cough, hemoptysis, or sputum production. Gastrointestinal: Denies abdominal pain, melena, or bright red blood per rectum. States floyd th constipation and diarrhea. Genitourinary: Denies hematuria or dysuria. Musculoskeletal: Denies joint pain or tenderness. Neurologic: States headaches these have slowed down. Denies visual changes, or numbness/tin gling of the extremities. Endocrine: Denies peripheral edema or heat/cold intolerance. Unchanged edema in the left le g. Hematologic: Denies spontaneous bruising or bleeding. Integumentary: Denies rash, wounds or other skin concerns. Pain: Denies pain. Note: Pt is here for follow up and labs. Was treated for a UTI with both phenazopyridine an d nitrofurantoin and had to take benadryl with this. Possible intolerance to these antibioti cs. My chart: documented in this encounter Plan of Treatment Not on filedocumented as of this encounter Procedures + +--------+ + + + | Procedure Name | Priori | Date/Time | Associated Diagnosis | Comments | | | ty | | | | + +--------+ + + + | IRON AND TRANSFERRIN | STAT | 06/04/2016 | Anemia associated | Results for this | | | | 9:35 AM | with acute blood | procedure are in the | | | | PDT | loss | results section. | + +--------+ + + + | FERRITIN | STAT | 06/04/2016 | Anemia associated | Results for this | | | | 9:35 AM | with acute blood | procedure are in the | | | | PDT | loss | results section. | + +--------+ + + + | CBC W/AUTO | STAT | 06/04/2016 | Anemia associated | Results for this | | DIFFERENTIAL | | 9:28 AM | with acute blood | procedure are in the | | | | PDT | loss | results section. | + +--------+ + + + | CEA | STAT | 06/04/2016 | Rectal cancer | Results for this | | | | 9:28 AM | (HCC) | procedure are in the | | | | PDT | | results section. | + +--------+ + + + documented in this encounter Results Ferritin (06/04/2016 9:35 AM PDT) + +-------+ + + + | Component | Value | Ref Range | Performed | Pathologist | | | | | At | Signature | + +-------+ + + + | FERRITIN | 7 (L) | 11-<307 ng/mL | [facility] | | | | [...] [address] | [place] | [phone] | | [facility] | | [address] | | | - LABORATORY | | [...] | | | | mg/dL | [facility] | | | | [...] + | [facility] | [address] | [place] | [phone] | | [facility] | | [address] | | | - LABORATORY | | [...] + | [facility] | [address] | [place] | [phone] | | [facility] | | [address] | | | - LABORATORY | | | | + + + + + CEA (06/04/2016 9:28 AM PDT) + +-------+ + + + | Component | Value | Ref Range | Performed | Pathologist | | | | | At | Signature | + +-------+ + + + | CEA | 3.5 | 0.0 - 10.0 | [facility] | | | | | ng/mL | [facility] | | | | | | MEDICAL [...] [address] | [place] | [phone] | | [facility] | | [address] | | | - LABORATORY | | | | + + + + + documented in this encounter Visit Diagnoses + + | Diagnosis | + + | Rectal cancer (HCC) - Primary Malignant neoplasm of rectum | + + | Iron deficiency anemia due to chronic blood loss Iron deficiency anemia secondary to | | blood loss (chronic) | + + | Anemia associated with acute blood loss Acute posthemorrhagic anemia | + + documented in this encounter"
--- OUTSIDE RECORDS SUMMARY | ~2020-02-23 | XMS | Encounter Summary ---
Demographics + + + | Address | [address] [facility] | | | [place] [address] | + + + | Home Phone [...] Team Providers + +------+ + | Care Physician Non Invasive Cardiologist Name | Role | Phone | + [...] [place] | | | | | [place] OFFICE | [address] | [place] | | | | | OUTPATIENT | Phone: | [phone] Phone: | | | | | VISIT 25 | [phone] | [phone] | | | | | MINUTES | Fax: | Fax: | | | | | | [phone] | [phone] | +--------+--------+ + + + + Encounter Details +--------+ + + + + | Date | Type | Department | Care Team | Description | +--------+ + + + + | 03/14/ | Hospital | [facility] | Wing Frank | Rectal cancer (HCC) | | 2015 | Encounter | [facility] | MD Casimiro [address] | | | | | ONCOLOGY CLINIC [address] | [address] [place] | | | | | [address] [place] | [place] [address] | | | | | [place] [address] | [phone] | | | | | [phone] | | | +--------+ + + + [...] [address] | [place] | [phone] | | [facility] | | [address] | | | - LABORATORY | | [...] [address] | [place] | [phone] | | [facility] | | [address] | | | - LABORATORY | | [...] [address] | [place] | [phone] | | [facility] | | [address] | | | - LABORATORY | | [...] | 1.06 | 0.60 - 1.30 | [facility] | | | | | mg/dL | [...] mL/min/1.73m2 | [facility] | | | GUAMANIAN | RATE,ESTIMATED | | MEDICAL | | | | mL/min/1.23q3Foqr than | | CENTER - | | [...] ST. | [address] | [place] | [phone] | | [facility] | | [address] | | | - LABORATORY | | | | + + + + + documented in this encounter Visit Diagnoses + + | Diagnosis | + + | Rectal cancer (HCC) Malignant neoplasm of rectum | + + documented in this encounter"
--- OUTSIDE RECORDS SUMMARY | ~2020-02-23 | XMS | Encounter Summary ---
Demographics + + + | Address | [address] [facility] | | | [place] [address] | + + + | Home Phone [...] Team Providers + +------+ + | Care Web Consultant Name | Role | Phone | + +------+ + | Kera Hernandez PA-C | PCP | | + +------+ + Encounter Details +--------+ + + + + | Date | Type | Department | Care Team | Description | +--------+ + + + + | 01/29/ | [facility] | [facility] | Wing Frank | Rectal cancer (HCC) | | 2019 | Encounter | [facility] | MD Casimiro [address] | (Primary Dx) | | | | ONCOLOGY CLINIC [address] | [address] | | | | | [address] | [place] [address] | | | | | [place] [address] | [phone] | | | | | [phone] | | | +--------+ + + + [...] [address] | [place] | [phone] | | [facility] | | [address] | | | - LABORATORY | | [...] [address] | [place] | [phone] | | [facility] | | [address] | | | - LABORATORY | | [...] [address] | [place] | [phone] | | [facility] | | [address] | | | - LABORATORY | | [...] | 0.89 | 0.55 - 1.02 | [facility] | | | | | mg/dL | [facility] | | | | | | MEDICAL | | | | | | CENTER - | | | | | | LABORATORY | | + + + + + + | eGFR if not | >60Comment: GLOMERULAR | >=60 | [facility] | | | | FILTRATION | mL/min/1.73m2 | [facility] | | | AFGHAN | RATE,ESTIMATED | | MEDICAL | | | | mL/min/1.24k6Boyl than | | CENTER - | | [...] + + + + | Albumin/Nicol | 1.9 | 0.8 - 1.9 | [...] ST. | [address] | [place], [place] | [phone] | | [facility] | | [address] | | | - LABORATORY | | [...] [address] | [place] | [phone] | | [facility] | | [address] | | | - LABORATORY | | | | + + + + + documented in this encounter Visit Diagnoses + + | Diagnosis | + + | Rectal cancer (HCC) - Primary Malignant neoplasm of rectum | + + documented in this encounter"
--- OUTSIDE RECORDS SUMMARY | ~2020-02-23 | XMS | Encounter Summary ---
Demographics + + + | Address | [address] [facility] | | | [place] [address] | + + + | Home Phone | | + + + | Preferred Language | Unknown | + + + | Marital Status | Single | + + + | Zoroastrian Affiliation | 1041 | + + + [...] Team Providers + +------+ + | Care Vacuum System Tester Name | Role | Phone | + [...] [place] | | | | | [address] [place] | [place] [address] | | | | | [place] [address] | [phone] | | | | | [phone] | | | +--------+ + + + [...]
--- OUTSIDE RECORDS SUMMARY | ~2020-02-23 | XMS | Encounter Summary ---
Demographics + + + | Address | [address] [facility] | | | [place] [address] | + + + | Home Phone [...] Team Providers + +------+ + | Care Wharf Helper Name | Role | Phone | [...] | +--------+ + + + + | 12/24/ | Telephone | [facility] | FrankWing | Other | | 2014 | | [facility] | MD Casimiro [address] | | | | | ONCOLOGY CLINIC [address] | [address] [place] | | | | | [address] [place] | [place] [address] | | | | | [place] [address] | [phone] | | | | | [phone] | | | +--------+ + + + [...]
--- OUTSIDE RECORDS SUMMARY | ~2020-02-23 | XMS | Encounter Summary ---
Demographics + + + | Address | [address] [facility] | | | [place] [address] | + + + | Home Phone | | + + + | Preferred Language | Unknown | + + + | Marital Status | Single | + + + | Samaritan Affiliation | 1041 | + + + [...] Team Providers + +------+ + | Care Coal Inspector Name | Role | Phone | + [...] [facility] [place] | | | | | [place] OFFICE | [address] | [place], [place] | | | | | OUTPATIENT | Phone: | [phone] Phone: | | | | | VISIT 25 | [phone] | [phone] | | | | | MINUTES | Fax: | Fax: | | | | | | [phone] | [phone] | +--------+--------+ + + + + Encounter Details +--------+ + + + + | Date | Type | Department | Care Team | Description | +--------+ + + + + | 07/04/ | Hospital | [facility] | Wing Frank | Rectal cancer (HCC) | | 2015 | Encounter | [facility] | MD Casimiro [address] | (Primary Dx) | | | | ONCOLOGY CLINIC [address] | [address] | | | | | [address] | [place] [address] | | | | | [place] [address] | [phone] | | | | | [phone] | | | +--------+ + + + [...] erent from the original. Hem-Onc Progress Note [facility] Pt. Name/Age/: Fang Stephenson 50 y.o. 1965 Med. Record Number: [id number] Date of admission: 07/04/2015 Assessment and plan: 1. 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 Ronaldo Hess, [facility] , Nov, 2014 with no histologically identifiable [...] Electronically signed by: Wing Frank, 07/04/2015 13:10 [facility] TIME SPENT 20 MIN. > 50% AT BEDSIDE, WITH FAMILY/PATIENT IN CARE AND CHIP DRIER ON UNIT AND CO ORDINATION OF CARE Portions of this chart may have been created with appweevr voice recognition software. Occasi onal wrong-word or sound-alike substitutions may have occurred due to the inherent rutherford itations of voice recognition software. Please read the chart carefully and recognize, using context, where these substitutions have occurred. Leah Rodriguez, [facility] - 07/04/2015 1:03 PM PDTREVIEW OF SYSTEMS [...] + | [facility] | [address] | [place], [place] | [phone] | | [facility] | | [address] | | | - LABORATORY | | [...] | | | FILTRATION | mL/min/1.73m2 | [facility] | | | SCOTTISH | RATE,ESTIMATED | | MEDICAL | | | | mL/min/1.34t8Vzxi than | | CENTER - | | [...] + | [facility] | [address] | [place] | [phone] | | [facility] | | [address] | | | - LABORATORY | | [...] | | | | ng/mL | [facility] | | | | | | MEDICAL [...] ST. | [address] | [place], [place] | [phone] | | [facility] | | [address] | | | - LABORATORY | | | | + + + + + documented in this encounter Visit Diagnoses + + | Diagnosis | + + | Rectal cancer (HCC) - Primary Malignant neoplasm of rectum | + + documented in this encounter"
--- OUTSIDE RECORDS SUMMARY | ~2020-02-23 | XMS | Encounter Summary ---
Demographics + + + | Address | [address] [facility] | | | [place] [address] | + + + | Home Phone | | + + + | Preferred Language | Unknown | + + + | Marital Status | Single | + + + | Shinto Affiliation | 1041 | + + + [...] Team Providers + +------+ + | Care Social Worker Palliative Care Name | Role | Phone | + [...] [facility] [place] | | | | | [place] OFFICE | [address] | [place] | | | | | OUTPATIENT | Phone: | [phone] Phone: | | | | | VISIT 25 | [phone] | [phone] | | | | | MINUTES | Fax: | Fax: | | | | | | [phone] | [phone] | +--------+--------+ + + + + Encounter Details +--------+ + + + + | Date | Type | Department | Care Team | Description | +--------+ + + + + | 12/29/ | Hospital | [facility] | Wing Frank | Rectal cancer (HCC) | | 2015 | Encounter | [facility] | MD Casimiro [address] | | | | | ONCOLOGY CLINIC [address] | [address] [place] | | | | | [address] [place] | [place] [address] | | | | | [place] [address] | [phone] | | | | | [phone] | | | +--------+ + + + [...] + + + | Blood Pressure | 97/76 | 12/29/2014 10:42 AM | | | | | PDT | | + + + + + | Pulse | 89 | 12/29/2014 10:42 AM | | | | | PDT | | + + + + + | Temperature | 36.9 C (98.4 F) | 12/29/2014 10:42 AM | | | | | PDT | | + + + + + | Respiratory Rate | 16 | 12/29/2014 10:42 AM | | | | | PDT | | + + + + + | Oxygen Saturation | 98% | 12/29/2014 10:42 AM | | | | | PDT | | + + + + + | Inhaled Oxygen | - | - | | | Concentration | | | | + + + + + | Weight | 99.6 kg (219 lb 9.3 | 12/29/2014 10:42 AM | | | | oz) | PDT | | + + + + + | Height | - | - | | + + + + + | Body Mass Index | 36.14 | 08/03/2014 11:14 AM | | | | | PDT | | + + + + + documented in this encounter Discharge Instructions Patient Instructions Wing Frank MD - 12/29/2014 11:28 AM PDT1. Please jimmy ntrate on regaining nutrition. The output from the ileostomy will gradually decrease as you recover from the surgery. 2. I'm going to present your case at the tumor Board for additional opinion with regard to postsurgical adjuvant chemotherapy. This is however a standard treatment following such margot medhat. 3. We will contact you over the next week to report out this conference impression and mary carmen n initiation of chemotherapy probably at the end of this month documented in this encounter Medications at Time [...] encounter Progress Notes Jen Doherty CMA - 12/29/2014 10:46 AM PDTREVIEW OF SYSTEMS Constitutional:Pt reports fatigue. Denies high fevers, shaking chills, nausea, vomiting, w eight loss, or night sweats. Appetite without changes. Pt Last weight weight was 105.1kg a nd today weight 99.6. Ear, Nose, Mouth, Throat: Denies odynophagia, dysphagia, or tinnitus. Cardiovascular: Denies shortness of breath, dyspnea on exertion, chest pain, palpitations o r orthopnea. Respiratory: Denies cough, hemoptysis, or sputum production. Gastrointestinal: Pt report s abdominal pain, she states she had her colostomy put in the November. Denies constipation, diarrhea, melena, or bright red blood per rectum. Genitourinary: Denies hematuria or dysuria. Musculoskeletal: Denies joint pain or tenderness. Neurologic: Denies headache, visual changes, or numbness/tingling of the extremities. Endocrine: Denies peripheral edema or heat/cold intolerance. Hematologic: Denies spontaneous bruising or bleeding. Integumentary: Denies rash, wounds or other skin concerns. Pain: Pt reports pain in the abdomin and rates the pain at a 5 today and this is without pa in medication and with pain medication she rates the pain at a 2. This is on a pain scale f rom 1-10 Note: Pt is here for follow up and labs My chart: documented in this encounter Plan of Treatment Not on filedocumented as of this encounter Procedures + +--------+ + + + | Procedure Name | Priori | Date/Time | Associated Diagnosis | Comments | | | ty | | | | + +--------+ + + + | CBC W/AUTO | STAT | 12/29/2014 | Rectal cancer | Results for this | | DIFFERENTIAL | | 10:29 AM | (HCC) | procedure are in the | | | | PDT | | results section. | + +--------+ + + + documented in this encounter Results CBC w/ Auto Differential (12/29/2014 10:29 AM PDT) + + + + + + | Component | Value | Ref Range | Performed | Pathologist | | | | | At | Signature | + + + + + + | WBC | 5.2 | 4.0 - 11.0 K/uL | [facility] [...] + | [facility] | [address] | [place] | [phone] | | [facility] | | [address] | | | - LABORATORY | | | | + + + + + | [facility] | [address] | [place], [place] | | | [facility] | | [id number] [place] [address] | | | - LABORATORY | | | | + + + + + documented in this encounter Visit Diagnoses + + | Diagnosis | + + | Rectal cancer (HCC) Malignant neoplasm of rectum | + + documented in this encounter"
--- OUTSIDE RECORDS SUMMARY | ~2020-02-23 | XMS | Encounter Summary ---
Demographics + + + | Address | [address] [facility] | | | [place] [address] | + + + | Home Phone [...] Team Providers + +------+ + | Care Data Analysis Manager Name | Role | Phone | + +------+ + | Kera Hernandez PA-C | PCP | | + +------+ + Encounter Details +--------+ + + + + | Date | Type | Department | Care Team | Description | +--------+ + + + + | 12/08/ | Hospital | [facility] | Ramirez Mattson, | Breast nodule | | 2019 | Encounter | [facility] ULTR[facility] | [address] | | | | | [address] | [place] | | | | | [place] | [place] [address] | | | | | [address] | [phone] | | | | | [phone] | | | +--------+ + + + [...]
--- OUTSIDE RECORDS SUMMARY | ~2020-02-23 | XMS | Encounter Summary ---
Demographics + + + | Address | [address] [facility] | | | [place] [address] | + + + | Home Phone [...] Team Providers + +------+ + | Care Grand Jury Deputy Sheriff Name | Role | Phone | + [...] | | | | Procedures | [place], [place] | [place] | | | | | [place] OFFICE | [address] | [facility] [place] | | | | | OUTPATIENT | Phone: | [phone] Phone: | | | | | VISIT 25 | [phone] | [phone] | | | | | MINUTES | Fax: | Fax: | | | | | | [phone] | [phone] | +--------+--------+ + + + + Encounter Details +--------+ + + + + | Date | Type | Department | Care Team | Description | +--------+ + + + + | 09/27/ | Hospital | [facility] | Wing Frank | Rectal cancer (HCC) | | 2014 | Encounter | [facility] MED[facility] | MD Casimiro [address] | (Primary Dx) | | | | ONCOLOGY CLINIC [address] | [address] [place] | | | | | [address] [place] | [place] [address] | | | | | [place] [address] | [phone] | | | | | [phone] | | | +--------+ + + + [...] | | Lymphocytes | | | [facility] | | | | | | MEDICAL [...] + | [facility] | [address] | [place] | [phone] | | [facility] | | [address] | | | - LABORATORY | | | | + + + + + | [facility] | [address] | [place] | | | [facility] | | [address] [place] [address] | | | - LABORATORY | | | | + + + + + documented in this encounter Visit Diagnoses + + | Diagnosis | + + | Rectal cancer (HCC) - Primary Malignant neoplasm of rectum | + + documented in this encounter"
--- OUTSIDE RECORDS SUMMARY | ~2020-02-23 | XMS | Encounter Summary ---
Demographics + + + | Address | [address] [facility] | | | [place] [address] | + + + | Home Phone | | + + + | Preferred Language | Unknown | + + + | Marital Status | Single | + + + | Druze Affiliation | 1041 | + + + | Race | Unknown | + + + | Ethnic Group | Unknown | + + + Author + + + | Author | [facility] | | | and [place] | + + + | Organization | [facility] | | [...] + +------+ + | Care Refinery Operator Name | Role | Phone | [...] | +--------+ + + + + | 10/10/ | Telephone | [facility] | Wing Frank | Other | | 2016 | | [facility] | MD Casimiro [address] | | | | | ONCOLOGY CLINIC [address] | [address] [place] | | | | | [address] [place] | [place] [address] | | | | | [place] [address] | [phone] | | | | | [phone] | | | +--------+ + + + [...]
--- OUTSIDE RECORDS SUMMARY | ~2020-02-23 | XMS | Encounter Summary ---
Demographics + + + | Address | [address] [facility] | | | [place] [address] | + + + | Home Phone | | + + + | Preferred Language | Unknown | + + + | Marital Status | Single | + + + | Shinto Affiliation | 1041 | + + + | Race | Unknown | + + + | Ethnic Group | Unknown | + + + Author + + + | Author | [facility] | | | and [place] | + + + | Organization | [facility] | | | and [...] Team Providers + +------+ + | Care Assembler Unit Name | Role | Phone | + +------+ + | Cindy Miramontes MD | PCP | | + +------+ + Encounter Details +--------+ + + + + | Date | Type | Department | Care Team | Description | +--------+ + + + + | 02/27/ | Orders Only | [facility] | Wing Frank | Anemia associated | | 2016 | | [facility] | MD Casimiro [address] | with acute blood | | | | ONCOLOGY CLINIC [address] | [address] [place] | loss (Primary Dx) | | | | [address] [place] | [place] [address] | | | | | [place] [address] | [phone] | | | | | [phone] | | | +--------+ + + + [...] + | [facility] | [address] | [place], [place] | [phone] | | [facility] | | [address] | | | - LABORATORY | | [...] [address] | [place] | [phone] | | [facility] | | [address] | | | - LABORATORY | | [...] [address] | [place] | [phone] | | [facility] | | [address] | | | - LABORATORY | | [...] + + | Performing | Address | [facility] | Phone Number | | Organization | | | | + + + + + | [facility] | [address] | [place] | [phone] | | [facility] | | [address] | | | - LABORATORY | | [...] [address] | [place] | [phone] | | [facility] | | [address] | | | - LABORATORY | | | | + + + + + documented in this encounter Visit Diagnoses + + | Diagnosis | + + | Anemia associated with acute blood loss - Primary Acute posthemorrhagic anemia | + + documented in this encounter"
--- OUTSIDE RECORDS SUMMARY | ~2020-02-23 | XMS | Encounter Summary ---
Demographics + + + | Address | [address] [facility] | | | [place] [address] | + + + | Home Phone [...] Author | [facility] | | | and [place] | + + + | Organization | [facility] | | [...] Team Providers + +------+ + | Care Street Light Inspector Name | Role | Phone | [...] | neoplasm of | Wing | [address] | | | | | rectum (HCC) | Casimiro, MD | [place], | | | | | Procedures | [address] | [place] [address] | | | | | MD | [place] | Phone: | | | | | [place] | [place], [place] | [phone] | | | | | , [place], [address] | [address] | Fax: | | | | | MG MD | Phone: | [phone] | | | | | ONDANSETRON | [phone] | | | | | | ORAL MD | Fax: | | | | | | [place] | [phone] | | | | | | DEXAMETHASON | | | | | | | E, .25 MG | | | | | | | MD LORAZEPAM | | | | | | | INJECTION, | | | | | | | 2 MG MD | | | | | | | OXALIPLATIN, | | | | | | | .5 MG MD | | | | | | | NORMAL | | | | | | | SALINE | | | | | | | SOLUTION | | | | | | | INFUS, 500 | | | | | | | ML MD | | | | | | | NORMAL | | | | | | | SALINE | | | | | | | SOLUTION | | | | | | | INFUS, 250 | | | | | | | ML MD | | | | | | | STERILE | | | | | | | WATER/SALINE | | | | | | | , 10 ML MD | | | | | | | INJ HEPARIN | | | | | | | SODIUM PER | | | | | | | 1000U MD | | | | | | | CHEMOTHER, | | | | | | | IV INFUSION, | | | | | | | 1 HR MD | | | | | | | CHEMOTHER, | | | | | | | IV PUSH,EA | | | | | | | ADD DRUG MD | | | | | | | CHEMOTHER, | | | | | | | IV INFUSION, | | | | | | | EA HR MD | | | | | | | CHEMOTHER,NO | | | | | | | N-HORMONE | | | | | | | ANTI-NEOPL, | | | | | | | SUB-Q/IM MD | | | | | | | [...] + + | 04/04/ | Hospital | [facility] | Wing Frank | Rectal cancer (HCC) | | 2014 | Encounter | MED CTR CHEMO | MD Casimiro [address] | | | | | INFUSION [address] | [address] [place] | | | | | [place], | [place] [address] | | | | | [place] [address] | [phone] | | | | | [phone] | | | +--------+ + + + [...] tablets by | 80 | 5 | 04/04/20 | | | (XELODA) 500 mg | [...] | dexamethasone (DECADRON) tablet | Given | 04/04/20 | 12 mg | | | | 12 mg 12 mg, Oral, ONCE, Sat | | 15 10:57 | | | | | 04/04/15 at 1115, For 1 dose, | | AM PDT | | | | | Administer 30 minutes before | | | | | | | chemotherapy., | | | | | | + +--------+ +-------+------+------+ +---+---+ | | | +---+---+ + +-------+ +-------+---+---+ | ondansetron (ZOFRAN ODT) | Given | 04/04/20 | 16 mg | | | | disintegrating tablet 16 mg 16 | | 15 10:57 | | | | | mg, Oral, ONCE, 04/04/15 at | | AM PDT | | | | | 1115, For 1 dose, Administer 30 | | | | | | | minutes before chemotherapy., | | | | | | + +-------+ +-------+---+---+ +---+---+ | | | +---+---+ + +---------+ +--------+--------+---+ | oxaliplatin (ELOXATIN) 215 mg | New Bag | 04/04/20 | 215 mg | 271.5 | | | in dextrose 5% 500 mL chemo | | 15 11:23 | | mL/hr | | | infusion 215 mg (rounded from | | AM PDT | | | | | 216 mg = 100 mg/m2 | | | | | | | 2.16 m2 Treatment plan recorded | | | | | | | BSA), Intravenous, Administer | | | | | | | over 2 Hours, ONCE, 04/04/15 | | | | | | | at 1145, For 1 dose, | | [...]
--- OUTSIDE RECORDS SUMMARY | ~2020-02-23 | XMS | Encounter Summary ---
Demographics + + + | Address | [address] [facility] | | | [place] [address] | + + + | Home Phone | | + + + | Preferred Language | Unknown | + + + | Marital Status | Single | + + + | Lutheran Affiliation | 1041 | + + + | Race | Unknown | + + + | Ethnic Group | Unknown | + + + Author + + + | Author | [facility] | | | and [place] | + + + | Organization | [facility] | | | [...] Providers + +------+ + | Care Computer Networker Name | Role | Phone | + +------+ + | Cindy Miramontes MD | PCP | | + +------+ + Encounter Details +--------+ + + + + | Date | Type | Department | Care Team | Description | +--------+ + + + + | 01/20/ | Orders Only | [facility] | Samanta Will | | | 2015 | | MED CTR CHEMO | M, RN | | | | | INFUSION [address] | | | | | | [place], | | | | | | [place] [address] | | | | | | [phone] | | | +--------+ + + + [...]
--- OUTSIDE RECORDS SUMMARY | ~2020-02-23 | XMS | Encounter Summary ---
Demographics + + + | Address | [address] [facility] | | | [place] [address] | + + + | Home Phone | | + + + | Preferred Language | Unknown | + + + | Marital Status | Single | + + + | Evangelical Affiliation | 1041 | + + + | Race | Unknown | + + + | Ethnic Group | Unknown | + + + Author + + + | Author | [facility] | | | and [place] | + + + | Organization | [facility] | | | [...] Team Providers + +------+ + | Care Abstractor Name | Role | Phone | + [...] | rectum (HCC) | [address] | [place], | | | | | Procedures | [address] | [place] [address] | | | | | CT Chest | [address] | Phone: | | | | | Abdomen | [place], [place] | [phone] | | | | | Pelvis w | [address] | Fax: | | | | | Contrast | Phone: | [phone] | | | | | | [phone] | | | | | | | Fax: | | | | | | | [phone] | | +--------+--------+ + + + + [...] | rectum (HCC) | [address] | [place], | | | | | Procedures | [address] | [place] [address] | | | | | CT Chest | [address] | Phone: | | | | | Abdomen | [place], [place] | [phone] | | | | | Pelvis w | [address] | Fax: | | | | | Contrast | Phone: | [phone] | | | | | | [phone] | | | | | | | Fax: | | | | | | | [phone] | | +--------+--------+ + + + + Encounter Details +--------+ + + + + | Date | Type | Department | Care Team | Description | +--------+ + + + + | 11/22/ | Hospital | [facility] | Ronaldo Tolbert, | CA of rectum (HCC) | | 2017 | Encounter | MED CTR CT [address] | [address] | | | | | [address], | [address] | | | | | [place] [address] | [place], [place] | | | | | [phone] | [address] | | | | | | [phone] | | | | | | | [...] and small bowel are normal in caliber. Jtnd-np-hiyx ileal | | | anastomosis is unchanged [...] bowel are normal | | in caliber. Oyil-be-eogh ilealanastomosis is unchanged from the prior | [...] and small bowel are normal in caliber. Alvi-ud-hfca ileal | |anastomosis is unchanged from the [...] mL/min/1.73m2 | [facility] | | | [facility] | | | MEDICAL | | | [...] ST. | [address] | [place] | [phone] | | [facility] | | [address] | | | - LABORATORY | | [...]
--- OUTSIDE RECORDS SUMMARY | ~2020-02-23 | XMS | Encounter Summary ---
Demographics + + + | Address | [address] [facility] | | | [place] [address] | + + + | Home Phone [...] Team Providers + +------+ + | Care Ambulance Paramedic Name | Role | Phone | + +------+ + | Cindy Miramontes MD | PCP | | + +------+ + Encounter Details +--------+ + + + + | Date | Type | Department | Care Team | Description | +--------+ + + + + | 09/08/ | Orders Only | [facility] | Riegert, Frida | Dysuria (Primary Dx) | | 2013 | | MED CTR RADIATION | M, [address] | | | | | ONCOLOGY [address] | [facility] | | | | | [place], | [address] | | | | | [place] [address] | | | | | | [phone] | | | +--------+ + + + [...] on filedocumented as of this encounter Results Urinalysis with Microscopic with [...] - 1.030 | [facility] | | | [place], | | | [facility] | | [...] | + + + + + | [facility] | [address] | [place] | [phone] | | [facility] | | [address] | | | - LABORATORY | | | | + + + + + | [facility] | [address] | [place] | | | [facility] | | [address] | | | - LABORATORY | | | | + + + + + documented in this encounter Visit Diagnoses + + | Diagnosis | + + | Dysuria - Primary | + + documented in this encounter"
--- OUTSIDE RECORDS SUMMARY | ~2020-02-23 | XMS | Encounter Summary ---
Demographics + + + | Address | [address] [facility] | | | [place] [address] | + + + | Home Phone [...] Team Providers + +------+ + | Care Residential Director Name | Role | Phone | [...] [place] | | | | | [address] [place] | [place] [address] | | | | | [place] [address] | [phone] | | | | | [phone] | | | +--------+ + + + [...]
--- OUTSIDE RECORDS SUMMARY | ~2020-02-23 | XMS | Encounter Summary ---
Demographics + + + | Address | [address] [facility] | | | [place] [address] | + + + | Home Phone [...] Team Providers + +------+ + | Care Teacher Dancing Name | Role | Phone | + +------+ + | Kera Hernandez PA-C | PCP | | + +------+ + Encounter Details +--------+ + + + + | Date | Type | Department | Care Team | Description | +--------+ + + + + | 01/09/ | Hospital | [facility] | Wing Frank | Canceled (Lack of | | 2016 | Encounter | MED CTR MEDICAL | MD Casimiro [address] | Transportation) | | | | ONCOLOGY CLINIC [address] | [address] [place] | | | | | [address] [place] | [place] [address] | | | | | [place] [address] | [phone] | | | | | [phone] | | | +--------+ + + + [...]
--- OUTSIDE RECORDS SUMMARY | ~2020-02-23 | XMS | Encounter Summary ---
Demographics + + + | Address | [address] [facility] | | | [place] [address] | + + + | Home Phone | | + + + | Preferred Language | Unknown | + + + | Marital Status | Single | + + + | Oriental Orthodox Affiliation | 1041 | + + [...] Team Providers + +------+ + | Care Mercury Recoverer Name | Role | Phone | + [...] MENESES | | | | | [address] [place] | [place] [address] | | | | | [place] [address] | [phone] | | | | | [phone] | | | +--------+ + + + [...] nt from the original. Hematology/Oncology Progress Note [facility] Pt. Name/Age/: Bryanna Stephenson 49 y.o. 1965 Med. Record Number: [id number] Date of admission: 01/31/2015 Identifying Statement: Bryanna Stephenson is a 49 y.o. female from 2006 [facility] [address] with Stage IIA rectal cancer. The patient chart and medications were reviewed in detail and the patient was seen and exam ined. History of Present Illnesses, their Current Assessments and Plans: Problems That Were Updated This Visit Rectal cancer Overview ACTIVE DIAGNOSIS: [id number], endoscopically staged IIA rectal cancer. 1. 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 Ronaldo Hess, [facility] , Nov, 2014 with no histologically identifiable [...] smoked a pack, and workinks in a [employer] Alcohol Use: Yes Drug Use: No Sexual Activity: Not on file Other Topics Concern Not on file Social History Narrative Pt is a 49 year old female from [facility]. 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 Family History Problem Relation Age of Onset [...] has been changed since signin Order [facility] [place] CHOLECALCIFEROL (Taking) 1,000 Units by Does not apply route. Number of times this order has been changed since signin [facility] [place] ibuprofen (ADVIL,MOTRIN) 600 MG tablet (Taking) Take 600 mg by mouth every 6 hours as nee ded. Number of times this order has been changed since signin [facility] [place] LISINOPRIL PO (Taking) Take 10 mg by mouth. Number of times this order has been changed since signin [facility] [place] Loperamide HCl (IMODIUM PO) (Taking) Take by mouth. Number of times this order has been changed since signin Order [facility] metFORMIN (GLUCOPHAGE) 500 mg tablet (Taking) Take 500 mg by mouth 2 times daily (with br eakfast & dinner). Number of times this order has been changed since signin Order [facility] [place] non-formulary medication (Taking) Citracel Number of times this order has been changed since signin Order [facility] [place] OMEGA 3 1000 MG CAPS (Taking) Take by mouth. Number of times this order has been changed since signin Order [facility] [place] ondansetron (ZOFRAN) 8 MG tablet (Taking) Take one tablet every 8 hours as needed for ainsley sea Number of times this order has been changed since signin [facility] [place] Allergy: No Known Allergies Objectives: Temp: 37.3 [...] the Assessment and Plan. Results for BRYANNA STEPHENSON ( ) as of 01/31/2015 20:20 Ref. [...] ng/mL 4.0 Pharmacovigilance: IDT PATIENT MEDICATION/PROFILE REVIEW [facility] CLINICAL PHARMACY SERVICES [...] Chemo being filled at no charge at [facility] in [place] Objective Data Bryanna Stephenson is a 49 [...] colo-anal anastamosis, Dr. Ronaldo Hess, [facility], Nov, with no histologically identifiable residual disease [...] Colorectal Cancer," J Clin Oncol, 2004, 22(11) :3560-82 Pertinent Medical History: has a past medical [...] this chart may have been created with [employer] voice recognition software. Occasi onal wrong-word or sound-alike substitutions may have occurred due to the inherent rutherford itations of voice recognition software. Please read the chart carefully and recognize, using context, where these substitutions have occurred. Kraig Uribe RN - 01/31/2015 11:42 AM PDTREVIEW [employer] Constitutional: Reports that her energy level is [...] + | [facility] | [address] | [place] | [phone] | | [facility] | | [address] | | | - LABORATORY | | [...] [address] | [place] | [phone] | | [facility] | | [address] | | | - LABORATORY | | [...] | 1.07 | 0.60 - 1.30 | [facility] | | | | | mg/dL | [facility] | | | | | | MEDICAL | | | | | | CENTER - | | | | | | LABORATORY | | + + + + + + | eGFR if not | 55 (L)Comment: | >=60 | [facility] | | | | GLOMERULAR FILTRATION | mL/min/1.73m2 | [facility] | | | EMIRATI | RATE,ESTIMATED | | MEDICAL | | | | mL/min/1.19q3Nvtx than | | CENTER - | | [...] [address] | [place] | [phone] | | [facility] | | [address] | | | - LABORATORY | | [...] [address] | [place] | [phone] | | [facility] | | [address] | | | - LABORATORY | | | | + + + + + documented in this encounter Visit Diagnoses + + | Diagnosis | + + | Rectal cancer (HCC) Malignant neoplasm of rectum | + + documented in this encounter
--- OUTSIDE RECORDS SUMMARY | ~2020-02-23 | XMS | Encounter Summary ---
Demographics + + + | Address | [address] [facility] | | | [place] [address] | + + + | Home Phone [...] Team Providers + +------+ + | Care Fiberglass Technician Name | Role | Phone | + +------+ + | Cindy Miramontes MD | PCP | | + +------+ + Encounter Details +--------+ + + + + | Date | Type | Department | Care Team | Description | +--------+ + + + + | 01/31/ | Hospital | [facility] | Artur, | Rectal cancer (HCC) | | 2015 | Encounter | [facility] CTR MED[facility] | Casimiro Crockett MD [address] | (Primary Dx) | | | | [facility]COLOGY CLINIC [address] | [address] [place] | | | | | [address] [place] | [place] [address] | | | | | [place] [address] | [phone] | | | | | [phone] | | | +--------+ + + + [...]
--- OUTSIDE RECORDS SUMMARY | ~2020-02-23 | XMS | Clinical Summary ---
Demographics + + + | Address | [address] | | | [place] [address] | + + + | Home Phone | | + + + | Preferred Language | Unknown | + + + | Marital Status | Single | + + + | Episcopal Affiliation | Unknown | + + + | Race | Unknown | + + + | Ethnic Group | Unknown | + + + Author + + + | Author | [facility] (Historical as of | | | 05-30-19) | + + + | Organization | [facility] (Historical as of | | | [...] Team Providers + +------+ + | Care Insurance Underwriter Sales Name | Role | Phone | + [...] + + | Overview: Overview: ACTIVE DIAGNOSIS: [id number], endoscopically | | staged IIA rectal cancer.1. Carcinoma of the rectum Moderately | | differentiated adenocarcinoma Low lying position above the anal | | verge EUS findings suggest uT3 depth of invasionS/p | | chemo-radiotherapy neoadjuvant induction therapy, Aug-Sep, | | 2013S/p Laparascopic, low abdominal proctectomy, colo-anal | | aziza, Dr. Ronaldo Hess, [facility], Nov, 2014 with no | | histologically [...] +------+-------+ + | PREMERA | PREMER | [id number] | | | [address] [address] | | | A BLUE | | | | [place], [place] | | | CROSS | | | | [address] | | | FED | | | | | | | PPO | | | | | + +--------+ +------+-------+ + | /[facility] | YELLOW | [id number] | | | | | PLANS | [...] | ambika | | | [phone] | [phone] | + +--------+ +--------+ + +
--- OUTSIDE RECORDS SUMMARY | ~2020-02-23 | XMS | Encounter Summary ---
Demographics + + + | Address | [address] [facility] | | | [place] [address] | + + + | Home Phone | | + + + | Preferred Language | Unknown | + + + | Marital Status | Single | + + + | Caodaism Affiliation | 1041 | + + + | Race | Unknown | + + + | Ethnic Group | Unknown | + + + Author + + + | Author | [facility] | | | and [place] | + + + | Organization | [facility] | | [...] Team Providers + +------+ + | Care Facs Teacher Name | Role | Phone | + +------+ + | Kera Hernandez PA-C | PCP | | + +------+ + Encounter Details +--------+ + + + + | Date | Type | Department | Care Team | Description | +--------+ + + + + | 04/08/ | Orders Only | [facility] | Piper Ayala, | | | 2018 | | MED CTR MEDICAL | Groundskeeping Maintenance Worker | | | | | ONCOLOGY CLINIC [address] | | | | | | [address] | | | | | | [place] [address] | | | | | | [phone] | | | +--------+ + + + [...]
--- OUTSIDE RECORDS SUMMARY | ~2020-02-23 | XMS | Encounter Summary ---
Demographics + + + | Address | [address] [facility] | | | [place] [address] | + + + | Home Phone [...] Team Providers + +------+ + | Care Ribbing Machine Operator Name | Role | Phone [...] | neoplasm of | Wing | [address] [place] | | | | | rectum (HCC) | Casimiro, MD | [place], | | | | | Procedures | [address] | [place] [address] | | | | | [place] | [place] | Phone: | | | | | CAPECITABINE | [place], [place] | [phone] | | | | | , [place], [address] | [address] | Fax: | | | | | [place] | Phone: | [phone] | | | | | O[place] | [phone] | | | | | | [place] | Fax: | | | | | | [place] | [phone] | | | | | | DEXAMETHASON | | | | | | | E, .25 MG | | | | | | | MO LORAZEPAM | | | | | | | INJECTION, | | | | | | | 2 MG MO | | | | | | | OXALIPLATIN, | | | | | | | .5 MG MO | | | | | | | NORMAL | | | | | | | SALINE | | | | | | | SOLUTION | | | | | | | INFUS, 500 | | | | | | | ML MO | | | | | | | NORMAL | | | | | | | SALINE | | | | | | | SOLUTION | | | | | | | INFUS, 250 | | | | | | | ML MO | | | | | | | STERILE | | | | | | | WATER/SALINE | | | | | | | , 10 ML MO | | | | | | | INJ HEPARIN | | | | | | | SODIUM PER | | | | | | | 1000U MO | | | | | | | CHEMOTHER, | | | | | | | IV INFUSION, | | | | | | | 1 HR MO | | | | | | | CHEMOTHER, | | | | | | | IV PUSH,EA | | | | | | | ADD DRUG MO | | | | | | | CHEMOTHER, | | | | | | | IV INFUSION, | | | | | | | EA HR MO | | | | | | | CHEMOTHER,NO | | | | | | | N-HORMONE | | | | | | | ANTI-NEOPL, | | | | | | | SUB-Q/IM MO | | | | | | | [...] + + | 03/14/ | Hospital | [facility] | Wing Frank | Rectal cancer (HCC) | | 2014 | Encounter | MED CTR CHEMO | MD Casimiro [address] | | | | | INFUSION [address] [place] | | | | | [place], | [place] [address] | | | | | [place] [address] | [phone] | | | | | [phone] | | | +--------+ + + + [...] +---------+ + + | capecitabine | Take three tablets | 80 | 5 | 03/14/20 | | | (XELODA) 500 mg | by mouth two times | tablet | | [...] | dexamethasone (DECADRON) tablet | Given | 03/14/20 | 4 mg | | | | 4 mg 4 mg, Oral, ONCE, Sat | | 11:13 | | | | | 03/14/15 at 1115, For 1 dose, | | AM PDT | | | | | Administer 30 minutes before | | | | | | | chemotherapy., | | | | | | + +--------+ +------+------+------+ +---+---+ | | | +---+---+ + +-------+ +-------+---+---+ | ondansetron (ZOFRAN ODT) | Given | 03/14/20 | 16 mg | | | | disintegrating tablet 16 mg 16 | | 15 11:13 | | | | | mg, Oral, ONCE, 03/14/15 at | | AM PDT | | | | | 1115, For 1 dose, Administer 30 | | | | | | | minutes before chemotherapy., | | | | | | + +-------+ +-------+---+---+ +---+---+ | | | +---+---+ + +---------+ +--------+--------+---+ | oxaliplatin (ELOXATIN) 215 mg | New Bag | 03/14/20 | 215 mg | 271.5 | | | in dextrose 5% 500 mL chemo | | 15 11:30 | | mL/hr | | | infusion 215 mg (rounded from | | AM PDT | | | | | 216 mg = 100 mg/m2 | | | | | | | 2.16 m2 Treatment plan recorded | | | | | | | BSA), Intravenous, Administer | | | | | | | over 2 Hours, ONCE, 03/14/15 at | | | | | | | 1130, For 1 dose, Chemotherapy: | | | | | | | This is a high risk medication. | | | | | | | Not compatible with NS or any | | | | | | | chloride-containing solutions. | | | | | | | Flush line with D5W prior to | | | | | | | giving any other meds., | | | | | | + +---------+ +--------+--------+---+ +---+---+ | | | +---+---+ documented in this encounter"
--- OUTSIDE RECORDS SUMMARY | ~2020-02-23 | XMS | Encounter Summary ---
Demographics + + + | Address | [address] [facility] | | | [place] [address] | + + + | Home Phone | | + + + | Preferred Language | Unknown | + + + | Marital Status | Single | + + + | Orthodoxy Affiliation | 1041 | + + + | Race | Unknown | + + + | Ethnic Group | Unknown | + + + Author + + + | Author | [facility] | | | and [place] | + + + | Organization | [facility] | | | [...] Team Providers + +------+ + | Care Account Manager Relief Name | Role | Phone | + [...] | | cancer (HCC) | Wing | [place], | | | | | Procedures | MD Casimiro | [place] [address] | | | | | CT Chest | [address] | Phone: | | | | | Abdomen | [place] | [phone] | | | | | Pelvis w | [place], [place] | Fax: | | | | | Contrast | [address] | [phone] | | | | | | Phone: | | | | | | | [phone] | | | | | | | Fax: | | | | | | | [phone] | | +--------+--------+ + + + + [...] | +--------+ + + + + | 02/06/ | Hospital | [facility] | Wing Frank | Rectal cancer (HCC) | | 2016 | Encounter | MED CTR CT [address] | MD Casimiro [address] | | | | | [place], | [address] [place] | | | | | [place] [address] | [place] [address] | | | | | [phone] | [phone] | | | | | | | [...] | CT CHEST ABDOMEN | Routin | 02/07/2016 | Rectal cancer | Results for this | | PELVIS W CONTRAST | e | 9:19 AM | ([facility]) | procedure are in the | | [...] iohexol (OMNIPAQUE 350) 350 | Given | 02/07/20 | 90 mLs | | | | mg/mL injection 90 mL 90 mL, | | 16 9:18 | | | | | Intravenous, ONCE PRN, Other, for | | AM PDT | | | | | imaging CT study, Starting Sat | | | | | | | 02/07/16 at 0922, For 1 dose, | | | | | | | Radiology | | | | | | + +--------+ +--------+------+------+ +---+---+ | | | +---+---+ documented in this encounter"
--- OUTSIDE RECORDS SUMMARY | ~2020-02-23 | XMS | Encounter Summary ---
Demographics + + + | Address | [address] [facility] | | | [place] [address] | + + + | Home Phone | | + + + | Preferred Language | Unknown | + + + | Marital Status | Single | + + + | Jew Affiliation | 1041 | + + + [...] Team Providers + +------+ + | Care Grounds Cleaner Name | Role | Phone | [...] [place] | | | | | [address] [place] | [place] [address] | | | | | [place] [address] | [phone] | | | | | [phone] | | | +--------+ + + + [...]
--- OUTSIDE RECORDS SUMMARY | ~2020-02-23 | XMS | Encounter Summary ---
Demographics + + + | Address | [address] [facility] | | | [place] [address] | + + + | Home Phone | | + + + | Preferred Language | Unknown | + + + | Marital Status | Single | + + + | Mormon Affiliation | 1041 | + + + | Race | Unknown | + + + | Ethnic Group | Unknown | + + + Author + + + | Author | [facility] | | | and [place] | + + + | Organization | [facility] | | | [...] Team Providers + +------+ + | Care Automobile Parker Name | Role | Phone | + [...] | | | | Procedures | [place], [place] | [place] | | | | | [place] OFFICE | [address] | [facility] [place] | | | | | OUTPATIENT | Phone: | [phone] Phone: | | | | | VISIT 25 | [phone] | [phone] | | | | | MINUTES | Fax: | Fax: | | | | | | [phone] | [phone] | +--------+--------+ + + + + Encounter Details +--------+ + + + + | Date | Type | Department | Care Team | Description | +--------+ + + + + | 04/04/ | Hospital | [facility] | Wing Frank | Rectal cancer (HCC) | | 2015 | Encounter | MED CTR MEDICAL | MD Casimiro [address] | (Primary Dx) | | | | ONCOLOGY CLINIC [address] [place] | | | | | [address] [place] | [place] [address] | | | | | [place] [address] | [phone] | | | | | [phone] | | | +--------+ + + + [...] ST. | [address] | [place], [place] | [phone] | | [facility] | | [address] | | | - LABORATORY | | [...] + | [address] | [address] | [place], [place] | [phone] | | [facility] | | [address] | | | - LABORATORY | | [...] [address] | [place] | [phone] | | [facility] | | [address] | | | - LABORATORY | | [...] 1.03 | 0.60 - 1.30 | [facility] | | | | | mg/dL [...] mL/min/1.73m2 | [facility] | | | [place] | RATE,ESTIMATED | | MEDICAL | | | | mL/min/1.03u8Qaul than | | CENTER - | | [...] [address]I [address]. | [address] | [place] | [phone] | | [facility] | | [address] | | | - LABORATORY | | | | + + + + + documented in this encounter Visit Diagnoses + + | Diagnosis | + + | Rectal cancer (HCC) - Primary Malignant neoplasm of rectum | + + documented in this encounter"
--- OUTSIDE RECORDS SUMMARY | ~2020-02-23 | XMS | Encounter Summary ---
Demographics + + + | Address | [address] [facility] | | | [place] [address] | + + + | Home Phone | | + + + | Preferred Language | Unknown | + + + | Marital Status | Single | + + + | Advent Affiliation | 1041 | + + + [...] Team Providers + +------+ + | Care Synchro Assembler Name | Role | Phone | + +------+ + | Cindy Miramontes MD | PCP | | + +------+ + Encounter Details +--------+ + + + + | Date | Type | Department | Care Team | Description | +--------+ + + + + | 01/31/ | Hospital | [facility] | Artur, | Rectal cancer (HCC) | | 2015 | Encounter | MED CTR MEDICAL | Casimiro Crockett MD [address] | (Primary Dx) | | | | ONCOLOGY CLINIC [address] | [address] [place] | | | | | [address] [place] | [place] [address] | | | | | [place] [address] | [phone] | | | | | [phone] | | | +--------+ + + + [...]
--- OUTSIDE RECORDS SUMMARY | ~2020-02-23 | XMS | Encounter Summary ---
Demographics + + + | Address | [address] [facility] [address] | | | [place] [address] | + + + | Home Phone [...] Team Providers + +------+ + | Care Drafter Electronic Name | Role | Phone | + +------+ + | Cindy Miramontes MD | PCP | | + +------+ + Encounter Details +--------+ + + + + | Date | Type | Department | Care Team | Description | +--------+ + + + + | 02/07/ | [facility] | [facility] | Wing Frank | Rectal cancer (HCC) | | 2015 | Encounter | MED CTR MEDICAL | MD Casimiro [address] | (Primary Dx) | | | | ONCOLOGY CLINIC [address] | [address] [place] | | | | | [address] [place] | [place] [address] | | | | | [place] [address] | [phone] | | | | | [phone] | | | +--------+ + + + [...] | mL/min/1.73m2 | [facility] | | | [place] | RATE,ESTIMATED | | MEDICAL | | | | mL/min/1.97r6Endr than | | CENTER - | | [...] [address] | [place] | [phone] | | [facility] | | [address] | | | - LABORATORY | | [...] | 0.82 | 0.60 - 1.30 | [facility] | | | | | mg/dL | [facility] | | | | | | MEDICAL | | | | | | CENTER - | | | | | | LABORATORY | | + + + + + + | eGFR if not | >60Comment: GLOMERULAR | >=60 | [facility] | | | | FILTRATION | mL/min/1.73m2 | [facility] | | | [place] | RATE,ESTIMATED | | MEDICAL | | | | mL/min/1.87z3Nzpo than | | CENTER - | | [...] [address] | [place] | [phone] | | [facility] | | [address] | | | - LABORATORY | | [...] 18 | 7 - 18 mg/dL | [facility] | | | | | | [facility] | | | | | | MEDICAL | | | | | | CENTER - | | | | | | LABORATORY | | + + + + + + | Creatinine | 0.85 | 0.60 - 1.30 | [facility] | | | | | mg/dL | [facility] | | | | | | MEDICAL | | | | | | CENTER - | | | | | | LABORATORY | | + + + + + + | eGFR if not | >60Comment: GLOMERULAR | >=60 | [facility] | | | | FILTRATION | mL/min/1.73m2 | [facility] | | | [place] | RATE,ESTIMATED | | MEDICAL | | | | mL/min/1.43c1Zpie than | | CENTER - | | [...] [address] | [place] | [phone] | | [facility] | | [address] | | | - LABORATORY | | [...] ST. | [address] | [place], [place] | [phone] | | [facility] | | [address] | | | - LABORATORY | | [...] not | 57 (L)Comment: | >=60 | [facility] | | | | GLOMERULAR FILTRATION | mL/min/1.73m2 | [facility] | | | [place] | RATE,ESTIMATED | | MEDICAL | | | | mL/min/1.68z3Yhjx than | | CENTER - | | [...] | | | mg/dL | [facility] | | | | | [...] [address] | [place] | [phone] | | [facility] | | [address] | | | - LABORATORY | | | | + + + + + documented in this encounter Visit Diagnoses + + | Diagnosis | + + | Rectal cancer (HCC) - Primary Malignant neoplasm of rectum | + + documented in this encounter"
--- OUTSIDE RECORDS SUMMARY | ~2020-02-23 | XMS | Encounter Summary ---
Demographics + + + | Address | [address] [facility] | | | [place] [address] | + + + | Home Phone [...] Team Providers + +------+ + | Care Parimutuel Ticket Checker Name | Role | Phone | + [...] | | Rectal | Frank, | [address] | | | | | cancer (HCC) | Wing | [place], | | | | | Procedures | MD Casimiro | [place] [address] | | | | | CT Chest | [address] | Phone: | | | | | Abdomen | [place] | [phone] | | | | | Pelvis w | [place], [place] | Fax: | | | | | Contrast | [address] | [phone] | | | | | | Phone: | | | | | | | [phone] | | | | | | | Fax: | | | | | | | [phone] | | +--------+--------+ + + + + [...] | | | | IN OFFICE | [address] | [place] | | | | | OUTPATIENT | Phone: | [address] Phone: | | | | | VISIT 25 | [phone] | [phone] | | | | | MINUTES | Fax: | Fax: | | | | | | [phone] | [phone] | +--------+--------+ + + + + Encounter Details +--------+ + + + + | Date | Type | Department | Care Team | Description | +--------+ + + + + | 10/16/ | Hospital | [facility] | Wing Frank | Rectal cancer (HCC) | | 2018 | Encounter | MED CTR MEDICAL | MD Casimiro [address] | (Primary Dx) | | | | ONCOLOGY CLINIC 401 | [facility] | | | | | [address] | [place] [address] | | | | | [place] [address] | [phone] | | | | | [phone] | | | +--------+ + + + [...] + + + | Blood Pressure | 124/83 | 10/16/2017 4:26 PM | | | | | PST | | + + + + + | Pulse | 86 | 10/16/2017 4:26 PM | | | | | PST | | + + + + + | Temperature | 36.9 C (98.4 F) | 10/16/2017 4:26 PM | | | | | PST | | + + + + + | Respiratory Rate | 16 | 10/16/2017 4:26 PM | | | | | PST | | + + + + + | Oxygen Saturation | 98% | 10/16/2017 4:26 PM | | | | | PST | | + + + + + | Inhaled Oxygen | - | - | | | Concentration | | | | + + + + + | Weight | 91.6 kg (201 lb 15.1 | 10/16/2017 4:26 PM | | | | oz) | PST | | + + + + + | Height | - | - | | + + + + + | Body Mass Index | 33.6 | 01/30/2017 10:34 AM | | | [...] of this encounter Progress Notes Jen Doherty, EXPLOSIVE OPERATOR GRENADE - 10/16/2017 4:30 PM PSTREVIEW OF SYSTEMS Constitutional: States fatigue. Denies high fevers, shaking chills, anorexia, vomiting, or night sweats. Appetite without changes. Unintentional weight loss of 6 lbs appetite varies . Intermittent nausea. Ear, Nose, Mouth, Throat: Denies odynophagia, dysphagia, or tinnitus. Cardiovascular: Denies shortness of breath, dyspnea on exertion, chest pain, palpitations o r orthopnea. Occasional chest pains, last time was two weeks before maggie. Respiratory: Denies cough, hemoptysis, or sputum production. Gastrointestinal: Occasional abdominal pain. States both constipation and diarrhea. Denie s melena, or bright red blood per rectum. Genitourinary: Denies hematuria or dysuria. Musculoskeletal: States knees are getting bad. Neurologic: Denies headache, visual changes, or numbness/tingling of the extremities. Sinc e having her gull bladder removed she is experiencing tingling in three of her fingers in th e right hand. Endocrine: Denies peripheral edema or heat/cold intolerance. Unchanged edema in the ankles. Hematologic: Denies spontaneous bruising or bleeding. Integumentary: Denies rash, wounds or other skin concerns. Pain: Denies pain. Note: Pt is here for follow up and labs My chart: Active ing Frank MD - 10/16/2017 4:22 PM PSTFormatting of this note might be different from the origi nal. Hem-Onc Progress Note [facility] Pt. Name/Age/: Fang Stephenson 52 y.o. 1965 Med. Record Number: [id number] Date of admission: 10/16/2017 Assessment and plan: 1. 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 Ronaldo Hess, [facility] , Nov, 2014 with no histologically identifiable residual disease, Thus ypT0,N0 (0/7), M0 S/p 4 cycles post-surgical adjuvant CapOx chemotherapy: January-March, Plans for follow-up and surveillance to include CT surveillance imaging. We will schedule this over the next month or prior to our next follow-up surveillance visit later this spring . We discussed the now three-year interim since time of original diagnosis with odds increa singly in patients favor of long-term cure from this disease. Rash and concerning patience numb middle 3 fingers consistent with early carpal tunnel synd violette. We discussed the possibility that hand flexion or extension during her hospitalizatio n may have had an aggravating effect. 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 Patient may ultimately require wrist splints as a means of management. Subjective: The patient chart and medications were reviewed in detail and the patient was seen and exam ined. Fang Stephenson is a 52 y.o. female returns today for follow-up and monitoring tech ing a now three-year remission of rectal carcinoma. Interim history marked by development of acute cholecystitis for which patient undergoing e lective laparoscopic cholecystectomy. According to patient's surgeon able to explore the ab domen laparoscopically with negative findings. Patient has largely recovered from surgery f rom earlier last year and mostly feels well. She describes however still paroxysmal episode s of diarrhea usually associated with eating out in restaurants. She also describes an epis ode of tingling in the middle 3 fingers of her right hand. This had become apparent followi ng surgery and she wonders if this might be somehow connected. PSH: Reviewed, no changes to admission H&P. Past Medical History: Diagnosis Date Broken arm age 12 Broken leg age 4 Concussion 12/25 MRSA infection Review of Systems: Constitutional: States fatigue. Denies high fevers, shaking chills, anorexia, vomiting, or night sweats. Appetite without changes. Unintentional weight loss of 6 lbs appetite varies . Intermittent nausea. Ear, Nose, Mouth, Throat: Denies odynophagia, dysphagia, or tinnitus. Cardiovascular: Denies shortness of breath, dyspnea on exertion, chest pain, palpitations o r orthopnea. Occasional chest pains, last time was two weeks before maggie. Respiratory: Denies cough, hemoptysis, or sputum production. Gastrointestinal: Occasional abdominal pain. States both constipation and diarrhea. Denie s melena, or bright red blood per rectum. Genitourinary: Denies hematuria or dysuria. Musculoskeletal: States knees are getting bad. Neurologic: Denies headache, visual changes, or numbness/tingling of the extremities. Sinc e having her gull bladder removed she is experiencing tingling in three of her fingers in th e right hand. Endocrine: Denies peripheral edema or heat/cold intolerance. Unchanged edema in the ankles. Hematologic: Denies spontaneous bruising or bleeding. Integumentary: [...] medications on file prior to encounter. Objectives: on Min/Max Temp past 24 hours:No Data Recorded No intake or output data in the 24 hours ending 10/16/17 1622 Wt. Admission: Wt. Current: Physical Exam: Exam: [...] Psychiatric: Normal mood and affect. Diagnostic studies: Electronically signed by: Wing Frank, 10/16/2017 16:22 [facility] TIME SPENT 20 MIN. > 50% AT BEDSIDE, WITH FAMILY/PATIENT IN CARE AND SUPERINTENDENT WATER AND SEWER SYSTEMS ON UNIT AND CO ORDINATION OF CARE Portions of this chart may have been created with MyMosa voice recognition software. Occasi onal wrong-word or [...] | IRON AND TRANSFERRIN | STAT | 10/16/2017 | Rectal cancer | Results for this | | | | 4:11 PM | (HCC) | procedure are in the | | | | PST | | results section. | + +--------+ + + + | CBC WITH | STAT | 10/16/2017 | Rectal cancer | Results for this | | DIFFERENTIAL | | 4:11 PM | (HCC) | procedure are in the | | | | PST | | results section. | + +--------+ + + + | FERRITIN | STAT | 10/16/2017 | Rectal cancer | Results for this | | | | 4:11 PM | (HCC) | procedure are in the | | | | PST | | results section. | + +--------+ + + + | CEA | STAT | 10/16/2017 | Rectal cancer | Results for this | | | | 4:11 PM | (HCC) | procedure are in the | | | | PST | | results section. | + +--------+ + + + | COMPREHENSIVE | STAT | 10/16/2017 | Rectal cancer | Results for this | | METABOLIC PANEL | | 4:11 PM | (HCC) | procedure are in [...] | | | + +---------+ + + Iron and Transferrin (10/16/2017 4:11 PM PST) + + + + + [...] + + + + | TRANSFERRIN | 264.1 | 240.0 - 480.0 | [facility] | | | | | mg/dL | [facility] | | | | | | MEDICAL | | | | | | CENTER - | | | | | | LABORATORY | | + + + + + + | TIBC | 370 | 235 - 425 ug/dL | [facility] | | | | | | [facility] | | | | | | MEDICAL | | | | | | CENTER - | | | | | | LABORATORY | | + + + + + + | % | 11.4 (L) | 20.0 - 55.0 % | [...] + | [facility] | [address] | [place] | [phone] | | [facility] | | [address] | | | - LABORATORY | | | | + + + + + Ferritin (10/16/2017 4:11 PM PST) + +-------+ + + + | Component | Value | Ref Range | Performed | Pathologist | | | | | At | Signature | + +-------+ + + + | FERRITIN | 21 | 11 - 307 ng/mL | [facility] | | | | | [...] [address] | [place] | [phone] | | [facility] | | [address] | | | - LABORATORY | | | | + + + + + CEA (10/16/2017 4:11 PM PST) + +-------+ + + + | Component | Value | Ref Range | Performed | Pathologist | | | | | At | Signature | + +-------+ + + + | CEA | 4.4 | 0.0 - 10.0 | [facility] | | | | | ng/mL | [facility] | | | | [...] + | [facility] | [address] | [place] | [phone] | | [facility] | | [address] | | | - LABORATORY | | | | + + + + + Comprehensive Metabolic Panel (10/16/2017 4:11 PM PST) + + + + + [...] + + + + | Glucose | 113 (H) | 70 - 109 mg/dL | [facility] | | | | | | [facility] | | | | | | MEDICAL | | | | | | CENTER - | | | | | | LABORATORY | | + + + + + + | BUN | 11 | 7 - 18 mg/dL | [facility] [...] mL/min/1.73m2 | [facility] | | | UZBEK | RATE,ESTIMATED | | MEDICAL | | | | mL/min/1.23j7Snkw than | | CENTER - | | [...] | 9.7 | 8.3 - 10.5 | [place] | | | | | mg/dL | [facility] | | | | | | MEDICAL | | | | | | CENTER - | | | | | | LABORATORY | | + + + + + + | Albumin | 4.3 | 3.2 - 5.0 g/dL | [facility] | | | | | | [facility] | | | | | | MEDICAL | | | | | | CENTER - | | | | | | LABORATORY | | + + + + + + | Bilirubin | 0.6Comment: This is an | 0.1 - 1.5 [...] + + + + | Total | 7.4 | 6.0 - 7.8 g/dL | [facility] | | | Protein | | | [facility] | | [...] + + + + | Alkaline | 83Comment: This is an | 40 - 110 [...] + + + + | BUN/Creatin | 14.5 | | [facility] | | | ine [...] [address] | [place] | [phone] | | [facility] | | [address] | | | - LABORATORY | | | | + + + + + CBC with Differential (10/16/2017 4:11 PM PST) + + + + + + | Component | Value | Ref Range | Performed | Pathologist | | | | | At | Signature | + + + + + + | WBC | 5.3 | 4.0 - 11.0 K/uL | [facility] | | | | | | [facility] | | | | | | MEDICAL | | | | | | CENTER - | | | | | | LABORATORY | | + + + + + + | RBC | 4.88 | 3.70 - 5.20 | [facility] | | | | | M/uL | [facility] | | | | | | MEDICAL | | | | | | CENTER - | | | | | | LABORATORY | | + + + + + + | Hemoglobin | 13.2 | 11.5 - 16.0 | [facility] | | | | | g/dL | [facility] | | | | | | MEDICAL | | | | | | CENTER - | | | | | | LABORATORY | | + + + + + + | Hematocrit | 39.6 | 34.0 - 47.0 % | [facility] | | | | | | [facility] | | | | | | MEDICAL | | | | | | CENTER - | | | | | | LABORATORY | | + + + + + + | MCV | 81.0 (L) | 83.0 - 101.0 fL | [facility] | | | | | | [facility] | | | | | | MEDICAL | | | | | | CENTER - | | | | | | LABORATORY | | + + + + + + | MCH | 26.9 (L) | 28.0 - 35.0 pg | [facility] | | | | | | [facility] | | | | | | MEDICAL | | | | | | CENTER - | | | | | | LABORATORY | | + + + + + + | MCHC | 33.2 | 32.0 - 36.0 | [facility] | | | | | g/dL | [facility] | | | | | | MEDICAL | | | | | | CENTER - | | | | | | LABORATORY | | + + + + + + | RDW-CV | 15.0 (H) | <15.0 % | [facility] | | | | | | [facility] | | | | | | MEDICAL | | | | | | CENTER - | | | | | | LABORATORY | | + + + + + + | Platelet | 204 | 140 - 440 K/uL | [facility] | | | Count | | | [facility] | | | | | | MEDICAL | | | | | | CENTER - | | | | | | LABORATORY | | + + + + + + | MPV | 8.4 | fL | [facility] | | | | | | [facility] | | | | | | MEDICAL | | | | | | CENTER - | | | | | | LABORATORY | | + + + + + + | % | 55.7 | 45.0 - 82.0 % | [facility] | | | Neutrophils | | | [facility] | | | | | | MEDICAL | | | | | | CENTER - | | | | | | LABORATORY | | + + + + + + | % | 32.3 | 20.0 - 45.0 % | [facility] | | | Lymphocytes | | | [facility] | | | | | | MEDICAL | | | | | | CENTER - | | | | | | LABORATORY | | + + + + + + | % Monocytes | 8.7 | 4.0 - 12.0 % | [facility] | | | | | | [facility] | | | | | | MEDICAL | | | | | | CENTER - | | | | | | LABORATORY | | + + + + + + | % | 2.9 | 0.0 - 5.0 % | [facility] [...] + + + + | Absolute | 1.70 | 0.60 - 3.20 | [facility] | [...] + + | [facility]. | [address] | [place] | [phone] | | [facility] | | [address] | | | - LABORATORY | | | | + + + + + documented in this encounter Visit Diagnoses + + | Diagnosis | + + | Rectal cancer (HCC) - Primary Malignant neoplasm of rectum | + + documented in this encounter"
--- OUTSIDE RECORDS SUMMARY | ~2020-02-23 | XMS | Encounter Summary ---
Demographics + + + | Address | [address] [facility] [address] | | | [place] [address] | + + + | Home Phone | | + + + | Preferred Language | Unknown | + + + | Marital Status | Single | + + + | Rastafari Affiliation | [id number] | + + + [...] Team Providers + +------+ + | Care Wax Machine Operator Name | Role | Phone | + +------+ + PCP | Unavailable | + +------+ + Reason for Visit [...] | neoplasm of | Wing | [address] [place] | | | | | rectum (HCC) | MD Casimiro | [place] | | | | | Procedures | [address] | [place] [address] | | | | | [place] [address] | [place] | Phone: | | | | | [address] | [place], [place] | [phone] | | | | | INJECTION, 1 | [address] | Fax: | | | | | [place] | Phone: | [phone] | | | | | | [phone] | | | | | | | Fax: | | | | | | | [phone] | | +--------+--------+ + + + + Encounter Details +--------+ + + + + | Date | Type | Department | Care Team | Description | +--------+ + + + + | 03/05/ | Hospital | [facility] | Wing Frank | Rectal cancer (HCC) | | 2016 | Encounter | MED CTR CHEMO | MD Casimiro [address] | | | | | INFUSION [address] | [address] [place] | | | | | [place], | [place] [address] | | | | | [place] [address] | [phone] | | | | | [phone] | | | +--------+ + + + [...] + + + | Blood Pressure | 141/77 | 03/05/2016 11:26 AM | | | | | PDT | | + + + + + | Pulse | 69 | 03/05/2016 11:26 AM | | | | | PDT | | + + + + + | Temperature | 37.3 C (99.1 F) | 03/05/2016 11:26 AM | | | | | PDT | | + + + + + | Respiratory Rate | 16 | 03/05/2016 11:26 AM | | | | | PDT | | + + + + + | Oxygen Saturation | 100% | 03/05/2016 11:26 AM | | | | | PDT [...] | | 0 | | | | (ADVLESLEYMOTFLAVIA) 600 | every 6 hours as | [...] encounter Progress Notes Samanta Will RN - 03/05/2016 11:45 AM PDTPatient amb for rn check. Denies pain, n/v , sob. Patient states, "feeling tired today." Family at her side. No concerns. Appetite o k. Bowels and bladder ok A M PDTdocumented in this encounter Plan of Treatment [...] + +---------+ +--------+-------+------+ | iron sucrose (VENOFER) 400 mg | New Bag | 03/05/20 | 400 mg | 108 | | | in sodium chloride 0.9% 250 mL | | 16 11:42 | | mL/hr | | | IVPB 400 mg, Intravenous, | | AM PDT | | | | | Administer over 150 Minutes, | | | | | | | ONCE, 03/05/16 at 1145, For 1 | | | | | | | dose | | | | | | + +---------+ +--------+-------+------+ +---+---+ | | | +---+---+ documented in this encounter
--- OUTSIDE RECORDS SUMMARY | ~2020-02-23 | XMS | Encounter Summary ---
Demographics + + + | Address | [address] [facility] [address] | | | [place] [address] | + + + | Home Phone | | + + + | Preferred Language | Unknown | + + + | Marital Status | Single | + + + | Faith Affiliation | 1041 | + + + [...] Providers + +------+ + | Care Manager Employee Benefits Name | Role | Phone | + [...] | neoplasm of | Wing | [address] [place] | | | | | rectum (HCC) | MD Casimiro | [place], | | | | | Procedures | [address] | [place] [address] | | | | | [place] | [place] | Phone: | | | | | [place] | [facility], [place] | [phone] | | | | | INJECTION, 1 | [address] | Fax: | | | | | [place] | Phone: | [phone] | | | | | | [phone] | | | | | | | Fax: | | | | | | | [phone] | | +--------+--------+ + + + + Encounter Details +--------+ + + + + | Date | Type | Department | Care Team | Description | +--------+ + + + + | 09/03/ | Hospital | [facility] | Wing Frank | Rectal cancer (HCC) | | 2016 | Encounter | MED CTR CHEMO | MD Casimiro [address] | | | | | INFUSION [address] | [address] [place] | | | | | [place], | [place] [address] | | | | | [place] [address] | [phone] | | | | | [phone] | | | +--------+ + + + [...]
--- OUTSIDE RECORDS SUMMARY | ~2020-02-23 | XMS | Encounter Summary ---
Demographics + + + | Address | [address] [facility] [address] | | | [place] [address] | + + + | Home Phone [...] Team Providers + +------+ + | Care Ruling Machine Feeder Name | Role | Phone | + +------+ + | Cindy Miramontes MD | PCP | | + +------+ + Reason for Visit +--------+ + | Reason | Comments | +--------+ + | Other | | +--------+ + Encounter Details +--------+ + + + + | Date | Type | Department | Care Team | Description | +--------+ + + + + | 10/06/ | Telephone | [facility] | Frank[facility]ing | Other | | 2013 | | MED CTR MEDICAL | MD Casimiro [address] | | | | | ONCOLOGY CLINIC [address] | [address] [place] | | | | | [address] [place] | [place] [address] | | | | | [place] [address] | [phone] | | | | | [phone] | | | +--------+ + + + [...]
--- OUTSIDE RECORDS SUMMARY | ~2020-02-23 | XMS | Encounter Summary ---
Demographics + + + | Address | [address] [facility] [address] | | | [place] [address] | + + + | Home Phone | | + + + | Preferred Language | Unknown | + + + | Marital Status | Single | + + + | Voodoo Affiliation | 1041 | + + + | Race | Unknown | + + + | Ethnic Group | Unknown | + + + Author + + + | Author | [facility] | | | and [place] | + + + | Organization | [facility] | | [...] Providers + +------+ + | Care Software Engineering Project Manager Name | Role | Phone | [...] | | | | | | [place] [address] | | | | | | [phone] | | | +--------+ + + + [...]
--- OUTSIDE RECORDS SUMMARY | ~2020-02-23 | XMS | Encounter Summary ---
Demographics + + + | Address | [address] [facility] | | | [place] [address] | + + + | Home Phone [...] Team Providers + +------+ + | Care Linoleum Layer Apprentice Name | Role | Phone | + [...] | Rectal | Frida Thapa | [address] [place] | | | | | cancer (HCC) | MD [address] | [place], | | | | | Procedures | [address] | [place] [address] | | | | | CT | [place], | Phone: | | | | | Treatment | [place] [address] | [phone] | | | | | Plan Complex | Phone: | Fax: | | | | | CHG | [phone] | [phone] | | | | | RESPIRATORY | Fax: | | | | | | MOTION | [phone] | | | | | | MANAGEMENT [...] Rectal | Frida M, | [address] | | | | | cancer (HCC) | MD [address] | [place], | | | | | Procedures | [address] | [place] | | | | | MRI Pelvis | [place], | [address] | | | | | w wo | [place] [address] | Phone: | | | | | Contrast | Phone: | [phone] | | | | | | [phone] | Fax: | | | | | | Fax: | [phone] | | | | | | [phone] | | +--------+--------+ + + + + [...] | | | | | [address] | [place], [place] | [place] [address] | | | | | (TURN) | [address] | Phone: | | | | | Procedures | Phone: | [phone] | | | | | [place] OFFICE | [phone] | Fax: | | | | | OUTPATIENT | Fax: | [phone] | | | | | VISIT 25 | [phone] | | | | | | MINUTES NEW | | | | | | | PATIENT | | | +--------+--------+ + + + + Encounter Details +--------+ + + + + | Date | Type | Department | Care Team | Description | +--------+ + + + + | 08/03/ | Hospital | [facility] | Frida Oquendo | Rectal cancer (HCC) | | 2013 | Encounter | MED CTR RADIATION | MD Alanis [address] | (Primary Dx) | | | | ONCOLOGY [address] | [facility] [place] | | | | | [address] [place], | [address] | | | | | [place] [address] | | | | | | [phone] | | | +--------+ + + + [...] [place] is | | seen with intermediate [id number], mildly increased T2 signal, and patchy heterogeneous [...] + | MISCELLANEOUS LAB | | | [phone] | + +---------+ + + | MISCELANIOUS LAB | | | [phone] | + +---------+ + + CT Treatment [...]
--- OUTSIDE RECORDS SUMMARY | ~2020-02-23 | XMS | Encounter Summary ---
Demographics + + + | Address | [address] [facility] [address] | | | [place] [address] | + + + | Home Phone [...] Team Providers + +------+ + | Care Grain Oilseed Or Pasture Farm Worker Name | Role | Phone | [...] | +--------+ + + + + | 04/03/ | Telephone | [facility] | Wing Frank | Other | | 2018 | | MED CTR MEDICAL | MD Casimiro [address] | | | | | ONCOLOGY CLINIC [address] | [address] [place] | | | | | [place] | [place] [address] | | | | | [place] [address] | [phone] | | | | | [phone] | | | +--------+ + + + [...]
--- OUTSIDE RECORDS SUMMARY | ~2020-02-23 | XMS | Encounter Summary ---
Demographics + + + | Address | [address] [facility] | | | [place] [address] | + + + | Home Phone [...] Team Providers + +------+ + | Care Willow Machine Operator Name | Role | Phone [...] | | | [address] [place] | [place] [address] | | | | | [place] [address] | [phone] | | | | | [phone] | | | +--------+ + + + [...]
--- OUTSIDE RECORDS SUMMARY | ~2020-02-23 | XMS | Encounter Summary ---
Demographics + + + | Address | [address] [facility] [address] | | | [place] [address] | + + + | Home Phone [...] Team Providers + +------+ + | Care Pulmonary Specialist Name | Role | Phone | [...] | neoplasm of | Wing | [place] | | | | | rectum (HCC) | Casimiro, MD | [place], | | | | | Procedures | [address] | [place] [address] | | | | | [place] | [place] | Phone: | | | | | [place] | [place], [place] | [phone] | | | | | , [place], [address] | [address] | Fax: | | | | | [place] | Phone: | [phone] | | | | | [place] | [phone] | | | | | | [place] | Fax: | | | | | | [place] | [phone] | | | | | | DEXAMETHASON [...] + + | 03/14/ | Hospital | [facility] | Wing Frank | Rectal cancer (HCC) | | 2014 | Encounter | MED CTR CHEMO | MD Casimiro [address] | | | | | INFUSION [address] | [address] [place] | | | | | [place], | [place] [address] | | | | | [place] [address] | [phone] | | | | | [phone] | | | +--------+ + + + [...]
--- OUTSIDE RECORDS SUMMARY | ~2020-02-23 | XMS | Encounter Summary ---
Demographics + + + | Address | [address] [facility] | | | [place] [address] | + + + | Home Phone | | + + + | Preferred Language | Unknown | + + + | Marital Status | Single | + + + | Cheondoism Affiliation | 1041 | + + + | Race | Unknown | + + + | Ethnic Group | Unknown | + + + Author + + + | Author | [facility] | | | and [place] | + + + | Organization | [facility] | | [...] Team Providers + +------+ + | Care Restaurant And Bar Manager Name | Role | Phone | + +------+ + | Cindy Miramontes MD | PCP | | + +------+ + Reason for Visit +--------+ + | Reason | Comments | +--------+ + | Cancer | IDt Nutrition | +--------+ + Evaluate & Treat (Routine) +--------+ + + [...] | | neoplasm of | [address] | Services [address] | | | | | rectum (HCC) | [place] | [address] | | | | | | [place], [place] | [place], | | | | | | [address] | [place] [address] | | | | | | Phone: | Phone: | | | | | | [phone] | [phone] | | | | | | Fax: | Fax: | | | | | | [phone] | [phone] | +--------+ + + + + + Encounter Details +--------+ + + + + | Date | Type | Department | Care Team | Description | +--------+ + + + + | 04/20/ | Hospital | [facility] | Artur, | Malignant neoplasm | | 2015 | Encounter | MED CTR NUTRITION | Casimiro Crockett MD [address] | of rectum (HCC) | | | | SERVICES [address] [place] | (Primary Dx) | | | | [address] [place], | [place] [address] | | | | | [place] [address] | [phone] | | | | | [phone] | | | | | | | Beth Monahan, | | | | | | RDN | | +--------+ + + + + [...] + documented as of this encounter Progress Beth Crisostomo RD - 01/31/2015 12:31 PM PDTFormatting of this note might be different fr om the original. Medical Nutrition Note SUBJECTIVE: States that she has lost 4 pounds in the last week d/t going back to work and increased activity. Food recall shows that she eats 5 meals a day, soft bland foods d/t ile ostomy. Protein 2-3 times per day. OBJECTIVE: Diet: diabetic soft Wt Readings from Last 3 Encounters: 01/31/15 98.2 kg (216 lb 7.9 oz) 01/19/15 101.1 kg (222 lb 14.2 oz) 12/29/14 99.6 kg (219 lb 9.3 oz) Ht Readings from Last 1 Encounters: 01/31/15 1.66 m (5' 5.35") BMI 35.64 Labs: Lab Results Component Value Date ALBUMIN 4.0 01/31/2015 Estimated needs (wt. 80kg ABW) 6122-3438 kcals/day 80 gm pro/day Medications: noted ASSESSMENT/PLAN: Nutrition Diagnosis: Food and nutrition knowledge deficit related to high protein food as evidenced by verbalization from the pt and food recall. Interventions: 1. Provided and discussed written inform on increasing protein in her diet 2. Ileostomy MNT Nutrition Goals: 1. Increase protein in her diet 2. Prevention of weight loss Monitor: 1. Labs 2. weight Beth Monahan RD 01/31/2015 12:31 documented in this e ncounter Plan of Treatment + + +--------+ + [...]
--- OUTSIDE RECORDS SUMMARY | ~2020-02-23 | XMS | Encounter Summary ---
Demographics + + + | Address | [address] [facility] | | | [place] [address] | + + + | Home Phone | | + + + | Preferred Language | Unknown | + + + | Marital Status | Single | + + + | Mu-Ism Affiliation | 1041 | + + + [...] Team Providers + +------+ + | Care Cosmetic Chemist Name | Role | Phone | + +------+ + | Cindy Miramontes MD | PCP | | + +------+ + Encounter Details +--------+ + + + + | Date | Type | Department | Care Team | Description | +--------+ + + + + | 08/05/ | [facility] | [facility] | Frida Oquendo | Rectal cancer (HCC) | | 2014 | Encounter | MED CTR MEDICAL | MD Alanis [address] | | | | | ONCOLOGY CLINIC [address] | [place] | | | | | [address] | [address] | | | | | [place] [address] | | | | | | [phone] | | | +--------+ + + + [...] Iveth Botello [facility] - 08/06/2014 11:14 AM PDT A/P: No [...] contra ception. Prescription can be filled at [facility]: yes - filled wit h $10 [...] Iveth Botello [facility] 08/06/2014 11:39 documented in thi s encounter [...] mL/min/1.73m2 | [facility] | | | SPANISH | RATE,ESTIMATED | | MEDICAL | | | | mL/min/1.12n3Ziqi than | | CENTER - | | [...] + | [facility] | [address] | [place] | [phone] | | [facility] | | [address] | | | - LABORATORY | | | | + + + + + | [facility] | [address] | [place] | | | [facility] | | [address] | | | - LABORATORY | [...] + | [facility] | [address] | [place], [place] | [phone] | | [facility] | | [address] | | | - LABORATORY | | | | + + + + + | [facility] | [address] | [place], [place] | | | [facility] | | [id number] [place] [address] | | | - LABORATORY | | [...] [address] | [place] | [phone] | | [facility] | | [address] | | | - LABORATORY | | | | + + + + + | [facility] | [address] | [place], [place] | | | [facility] | | [address], [facility] | | | - LABORATORY | | | | + + + + + documented in this encounter Visit Diagnoses + + | Diagnosis | + + | Rectal cancer (HCC) Malignant neoplasm of rectum | + + documented in this encounter"
--- OUTSIDE RECORDS SUMMARY | ~2020-02-23 | XMS | Encounter Summary ---
Demographics + + + | Address | [address] [facility] | | | [place] [address] | + + + | Home Phone [...] Team Providers + +------+ + | Care Immigration Specialist Name | Role | Phone | [...] [place] | | | | | [address] [place] | [place] [address] | | | | | [place] [address] | [phone] | | | | | [phone] | | | +--------+ + + + [...]
--- OUTSIDE RECORDS SUMMARY | ~2020-02-23 | XMS | Encounter Summary ---
Demographics + + + | Address | [address] [facility] | | | [place] [address] | + + + | Home Phone | | + + + | Preferred Language | Unknown | + + + | Marital Status | Single | + + + | Nondenominational Affiliation | 1041 | + + + | Race | Unknown | + + + | Ethnic Group | Unknown | + + + Author + + + | Author | [facility] | | | and [place] | + + + | Organization | [facility] | | | and [...] Team Providers + +------+ + | Care Labor Economics Teacher Name | Role | Phone | + +------+ + | Cindy Miramontes MD | PCP | | + +------+ + Encounter Details +--------+ + + + + | Date | Type | Department | Care Team | Description | +--------+ + + + + | 08/17/ | [facility] | [facility] | Wing Frank | Rectal cancer (HCC) | | 2014 | Encounter | MED CTR MEDICAL | MD Casimiro [address] | (Primary Dx) | | | | ONCOLOGY CLINIC [address] | [address] [place] | | | | | [address] [place] | [place] [address] | | | | | [place] [address] | [phone] | | | | | [phone] | | | +--------+ + + + [...] [address] | [place] | [phone] | | [facility] | | [address] | | | - LABORATORY | | [...] ST. | [address] | [place] | [phone] | | [facility] | | [address] | | | - LABORATORY | | [...] + | [facility] | [address] | [place], [place] | [phone] | | [facility] | | [address] | | | - LABORATORY | | | | + + + + + | [facility] | [address] | [place], [place] | | | [facility] | | [address] | | | - LABORATORY [...] + | [facility] | [address] | [place] | [phone] | | [facility] | | [address] | | | - LABORATORY | | | | + + + + + | [facility] | [address] | [place] | | | [facility] | | [address] | | | - LABORATORY [...] + | [facility] | [address] | [place], [place] | [phone] | | [facility] | | [address] | | | - LABORATORY | | | | + + + + + | [facility] | [address] | [place] | | | [facility] | | [address] [place] [address] | | | - LABORATORY | | [...] | | | | | | [facility] | | [...] [address] | [place] | [phone] | | [facility] | | [address] | | | - LABORATORY | | | | + + + + + | [facility] | [address] | [place] | | | [facility] | | [address] | | | - LABORATORY [...] + | [facility] | [address] | [place] | [phone] | | [facility] | | [address] | | | - LABORATORY | | | | + + + + + | [facility] | [address] | [place], [place] | | | [facility] | | [address], [facility] | | | - LABORATORY | [...] + | [facility] | [address] | [place] | [phone] | | [facility] | | [address] | | | - LABORATORY | | | | + + + + + | [facility] | [address] | [place], [place] | | | [facility] | | [address] [place] [address] | | | - LABORATORY | | | | + + + + + documented in this encounter Visit Diagnoses + + | Diagnosis | + + | Rectal cancer (HCC) - Primary Malignant neoplasm of rectum | + + documented in this encounter"
--- OUTSIDE RECORDS SUMMARY | ~2020-02-23 | XMS | Encounter Summary ---
Demographics + + + | Address | [address] [facility] | | | [place] [address] | + + + | Home Phone [...] + + + | Author | [facility] | | | and [place] | + + + | Organization | [facility] | | | [...] Team Providers + +------+ + | Care Diesel Pile Driver Operator Name | Role | Phone | [...] | neoplasm of | Wing | [address] [place] | | | | | rectum (HCC) | MD Casimiro | [place], | | | | | Procedures | [address] | [place] [address] | | | | | [place] | ST [place] | Phone: | | | | | [place] | [facility] [place] | [phone] | | | | | INJECTION, 1 | [address] | Fax: | | | | | [place] | Phone: | [phone] | | | | | | [phone] | | | | | | | Fax: | | | | | | | [phone] | | +--------+--------+ + + + + Encounter Details +--------+ + + + + | Date | Type | Department | Care Team | Description | +--------+ + + + + | 03/05/ | Hospital | [facility] | Wing Frank | Rectal cancer (HCC) | | 2017 | Encounter | MED CTR CHEMO | MD Casimiro [address] | (Primary Dx) | | | | INFUSION [address] | [address] [place] | | | | | [place], | [place] [address] | | | | | [place] [address] | [phone] | | | | | [phone] | | | +--------+ + + + [...]
--- OUTSIDE RECORDS SUMMARY | ~2020-02-23 | XMS | Encounter Summary ---
Demographics + + + | Address | [address] [facility] | | | [place] [address] | + + + | Home Phone | | + + + | Preferred Language | Unknown | + + + | Marital Status | Single | + + + | Jain Affiliation | 1041 | + + + [...] Team Providers + +------+ + | Care Railroad Operator Name | Role | Phone | + +------+ + | Kera Hernandez PA-C | PCP | | + +------+ + Encounter Details +--------+ + + + + | Date | Type | Department | Care Team | Description | +--------+ + + + + | 12/04/ | Hospital | [facility] | Wing Frank | Rectal cancer (HCC) | | 2017 | Encounter | MED CTR CHEMO | MD Casimiro [address] | | | | | SWETHA [address] | [address] [place] | | | | | [place], | [place] [address] | | | | | [place] [address] | [phone] | | | | | [phone] | | | +--------+ + + + [...] + documented as of this encounter Progress Iveth Lara RN - 12/04/2016 3:02 PM PSTPatient discharged in satisfactory conditi on. Discharged ambulatory. With family. To home. Future appointments and After Visit Summary (AVS) provided. documented in thi s encounter Plan of [...] (VENOFER) 200 mg | New Bag | 12/04/19 | 200 mg | 220 | | | in sodium chloride 0.9% 100 mL | | 17 2:24 | | mL/hr | | | IVPB 200 mg, Intravenous, | | PM PST | | | | | Administer over 30 Minutes, | | | | | | | WEEKLY, First dose on Sat12/04/16 | | | | | | | at 1430 | | | | | | + +---------+ +--------+-------+------+ +---+---+ | | | +---+---+ documented in this encounter"
--- OUTSIDE RECORDS SUMMARY | ~2020-02-23 | XMS | Encounter Summary ---
Demographics + + + | Address | [address] [facility] | | | [place] [address] | + + + | Home Phone [...] Team Providers + +------+ + | Care System Configuration Specialist Name | Role | Phone | [...] [place] | | | | | [address] [place] | [place] [address] | | | | | [place] [address] | [phone] | | | | | [phone] | | | +--------+ + + + [...]
--- OUTSIDE RECORDS SUMMARY | ~2020-02-23 | XMS | Encounter Summary ---
Demographics + + + | Address | [address] [facility] | | | [place] [address] | + + + | Home Phone | | + + + | Preferred Language | Unknown | + + + | Marital Status | Single | + + + | Jainism Affiliation | 1041 | + + + [...] Team Providers + +------+ + | Care Sap Analyst Name | Role | Phone | + [...] W | | | | | | [place], | | | | | | [place] [address] | | | | | | [phone] | | | +--------+ + + + [...]
--- OUTSIDE RECORDS SUMMARY | ~2020-02-23 | XMS | Encounter Summary ---
Demographics + + + | Address | [address] [facility] | | | [place] [address] | + + + | Home Phone | | + + + | Preferred Language | Unknown | + + + | Marital Status | Single | + + + | Uatsdin Affiliation | 1041 | + + + [...] Team Providers + +------+ + | Care Mortgage Or Loan Underwriter Name | Role | Phone | [...] | | | | Procedures | [place], [place] | [place] | | | | | [place] OFFICE | [address] | [facility] [place] | | | | | OUTPATIENT | Phone: | [phone] Phone: | | | | | VISIT 25 | [phone] | [phone] | | | | | MINUTES | Fax: | Fax: | | | | | | [phone] | [phone] | +--------+--------+ + + + + Encounter Details +--------+ + + + + | Date | Type | Department | Care Team | Description | +--------+ + + + + | 11/03/ | Hospital | [facility] | Wing Frank | Rectal cancer (HCC) | | 2015 | Encounter | MED CTR MEDICAL | MD Casimiro [address] | (Primary Dx) | | | | ONCOLOGY CLINIC [address] | [address] [place] | | | | | [place] | [place] [address] | | | | | [place] [address] | [phone] | | | | | [phone] | | | +--------+ + + + [...] + | [facility] | [address] | [place] | [phone] | | [facility] | | [address] | | | - LABORATORY | | | | + + + + + | [facility] | [address] | [place], [place] | | | [facility] | | [address], [facility] | | | - LABORATORY | | | | + + + + + documented in this encounter Visit Diagnoses + + | Diagnosis | + + | Rectal cancer (HCC) - Primary Malignant neoplasm of rectum | + + documented in this encounter"
--- OUTSIDE RECORDS SUMMARY | ~2020-02-23 | XMS | Encounter Summary ---
Demographics + + + | Address | [address] [facility] | | | [place] [address] | + + + | Home Phone [...] Team Providers + +------+ + | Care Granulator Name | Role | Phone | + +------+ + | Kera Hernandez PA-C | PCP | | + +------+ + Encounter Details +--------+ + + + + | Date | Type | Department | Care Team | Description | +--------+ + + + + | 09/13/ | Telephone | [facility] | Wing Frank | | | 2013 | | MED CTR MEDICAL | MD Casimiro [address] | | | | | ONCOLOGY CLINIC [address] | [address] [place] | | | | | [address] [place] | [place] [address] | | | | | [place] [address] | [phone] | | | | | [phone] | | | +--------+ + + + [...]
--- OUTSIDE RECORDS SUMMARY | ~2020-02-23 | XMS | Encounter Summary ---
Demographics + + + | Address | [address] [facility] | | | [place] [address] | + + + | Home Phone | | + + + | Preferred Language | Unknown | + + + | Marital Status | Single | + + + | Buddhism Affiliation | 1041 | + + + | Race | Unknown | + + + | Ethnic Group | Unknown | + + + Author + + + | Author | [facility] | | | and [place] | + + + | Organization | [facility] | | | and [...] Team Providers + +------+ + | Care Toll Service Observer Name | Role | Phone | + +------+ + | Cindy Miramontes MD | PCP | | + +------+ + Encounter Details +--------+ + + + + | Date | Type | Department | Care Team | Description | +--------+ + + + + | 09/20/ | Hospital | [facility] | Max Anderson DO | | | 2014 | Encounter | MED CTR RADIATION | [address] | | | | | ONCOLOGY [address] | [place], [place] | | | | | [place], | [address] | | | | | [place] [address] | | | | | | [phone] | | | +--------+ + + + [...]
--- OUTSIDE RECORDS SUMMARY | ~2020-02-23 | XMS | Encounter Summary ---
Demographics + + + | Address | [address] [facility] | | | [place] [address] | + + + | Home Phone [...] Team Providers + +------+ + | Care Livestock Nutrition Territory Manager Name | Role | Phone | [...] Refill | | 2013 | | MED [facility] MED[facility] | MD Casimiro [address] | | | | | ONCOLOGY CLINIC [address] | [address] [place] | | | | | [address] [place] | [place] [address] | | | | | [place] [address] | [phone] | | | | | [phone] | | | +--------+--------+ + + + [...]
--- OUTSIDE RECORDS SUMMARY | ~2020-02-23 | XMS | Encounter Summary ---
Demographics + + + | Address | [address] [facility] | | | [place] [address] | + + + | Home Phone | | + + + | Preferred Language | Unknown | + + + | Marital Status | Single | + + + | Moravian Affiliation | 1041 | + + + [...] Team Providers + +------+ + | Care Delivery Truck Driver Heavy Name | Role | Phone | + [...] ST [place] | | | | | [place] OFFICE | [address] | [facility] [place] | | | | | OUTPATIENT | Phone: | [phone] Phone: | | | | | VISIT 25 | [phone] | [phone] | | | | | MINUTES | Fax: | Fax: | | | | | | [phone] | [phone] | +--------+--------+ + + + + Encounter Details +--------+ + + + + | Date | Type | Department | Care Team | Description | +--------+ + + + + | 12/04/ | Hospital | [facility] | Wing Frank | Rectal cancer (HCC) | | 2017 | Encounter | MED CTR MEDICAL | MD Casimiro [address] | (Primary Dx); Anemia | | | | ONCOLOGY CLINIC [address] | [address] [place] | associated with | | | | [address] [place] | [place] [address] | acute blood loss | | | | [place] [address] | [phone] | | | | | [phone] | | | +--------+ + + + [...] of this encounter Progress Notes Jen Doherty, PHYSICIST [employer] - 12/04/2016 1:41 PM PSTREVIEW OF SYSTEMS [...] from the origi nal. Hem-Onc Progress Note [facility] Pt. Name/Age/: Fang Stephenson 51 y.o. 1965 Med. Record Number: [id number] Date of admission: 12/04/2016 Assessment and plan: 1. 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 Ronaldo Hess, [facility] , Nov, 2014 with no histologically [...] rectum. Interim history of evaluations both here, [place] and then at [facility] includi ng colonoscopy by Dr. Russell asked [...] and small bowel are normal in caliber. Givj-to-xpbe ileal anastomosis is unchanged from the prior [...] directly following this report is the r [facility] radiologist and billing locum provider for this service. The radiologist placing the final signature did not dictate or review this study, but was required to sign for administr ative purposes only. Signed by: Carlito Mccormick Report sent: 11/23/2016 9:37:00 AM Dictated a nd Signed by: Bubba Hutchinson MD Electronically signed: 11/23/2016 9:47 AM Electronically signed by: Wing Frank, 12/04/2016 13:40 [facility] TIME SPENT 20 MIN. > 50% AT BEDSIDE, WITH FAMILY/PATIENT IN CARE AND BUILDING MAINTENANCE TECHNICIAN ON UNIT AND CO ORDINATION OF CARE Portions of this chart may have been created with [employer] voice recognition software. Occasi onal wrong-word or [...] + | [facility] | [address] | [place] | [phone] | | [facility] | | [address] | | | - LABORATORY | | [...] mL/min/1.73m2 | [facility] | | | FIJIAN | RATE,ESTIMATED | | MEDICAL | | | | mL/min/1.59g7Cbxg than | | CENTER - | | [...] 4.0 | 3.2 - 5.0 g/dL | [facility] | | | | | | ST. [...] + | [facility] | [address] | [place] | [phone] | | [facility] | | [address] | | | - LABORATORY | | [...] | | | | ng/mL | [facility] | | | | | | [...] [address] | [place] | [phone] | | [facility] | | [address] | | | - LABORATORY | | [...] ST. | [address] | [place], [place] | [phone] | | [facility] | | [address] | | | - LABORATORY | | [...] [address] | [place] | [phone] | | [facility] | | [address] | | | - LABORATORY | | [...]
--- OUTSIDE RECORDS SUMMARY | ~2020-02-23 | XMS | Encounter Summary ---
Demographics + + + | Address | [address] [facility] | | | [place] [address] | + + + | Home Phone | | + + + | Preferred Language | Unknown | + + + | Marital Status | Single | + + + | Scientologist Affiliation | 1041 | + + + | Race | Unknown | + + + | Ethnic Group | Unknown | + + + Author + + + | Author | [facility] | | | and [place] | + + + | Organization | [facility] | | | [...] Team Providers + +------+ + | Care Program Management Intern Name | Role | Phone | [...] [place] | | | | | [address] [place] | [place] [address] | | | | | [place] [address] | [phone] | | | | | [phone] | | | +--------+ + + + [...]
--- OUTSIDE RECORDS SUMMARY | ~2020-02-23 | XMS | Encounter Summary ---
Demographics + + + | Address | [address] [facility] | | | [place] [address] | + + + | Home Phone [...] Team Providers + +------+ + | Care Passenger Car Upholsterer Apprentice Name | Role | Phone | [...] [place] | | | | | [address] [place] | [place] [address] | | | | | [place] [address] | [phone] | | | | | [phone] | | | +--------+ + + + [...]
--- OUTSIDE RECORDS SUMMARY | ~2020-02-23 | XMS | Encounter Summary ---
Demographics + + + | Address | [address] [facility] | | | [place] [address] | + + + | Home Phone [...] Team Providers + +------+ + | Care Monument Setter Name | Role | Phone | + [...] + | 09/17/ | Documentati | [facility] | [place] Daniels, | Psychosocial Support | | 2013 | on | MED CTR MEDICAL | PRESIDENTIAL HELICOPTER CREW CHIEF | | | | | ONCOLOGY CLINIC [address] | | | | | | [address] | | | | | | [place] [address] | | | | | | [phone] | | | +--------+ + + + [...] cancer. She is single and lives in [place]. 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 Fang was offered lodging at the [place] however she has decided to drive from [place] for her daily radiation. She presents as [...] pport system and good coping skills. This adoption social worker allowed for expression of feeling a nd provided supportive counseling and information regarding the emotional aspects of a cance r diagnosis and treatment. Encouraged Fang to attend community support group and [facility] from this adoption social worker. Also offered literature on her diagnosis. This [facility] worker is available to provide emotional support and additional community resource info rmation and referral as needed. Fang is aware of support services and how to access them. CASINO RUNNER will follow up at appointments and by phone as needed. documented in this encounter Plan of Treatment Not on filedocumented as of this encounter Visit Diagnoses Not on filedocumented in this encounter"
--- OUTSIDE RECORDS SUMMARY | ~2020-02-23 | XMS | Encounter Summary ---
Demographics + + + | Address | [address] [facility] | | | [place] [address] | + + + | Home Phone | | + + + | Preferred Language | Unknown | + + + | Marital Status | Single | + + + | Jehovah'S Witness Affiliation | 1041 | + + + | Race | Unknown | + + + | Ethnic Group | Unknown | + + + Author + + + | Author | [facility] | | | and [place] | + + + | Organization | [facility] | | [...] Team Providers + +------+ + | Care Machine Quilt Stuffer Name | Role | Phone | + [...] | | Oncology / | Rectal | Medical | Wing | | | | Oncology | cancer (HCC) | Oncology | MD Casimiro | | | | | Procedures | Clinic [address] | [address] | | | | | [place] OFFICE | [place] | [place] | | | | | OUTPATIENT | [place], | [place], [place] | | | | | VISIT [address] | [place] | [address] Phone: | | | | | MINUTES | [address] | [phone] | | | | | | Phone: | Fax: | | | | | | [phone] | [phone] | | | | | | Fax: | | | | | | | [phone] | | +--------+--------+ + + + + Encounter Details +--------+ + + + + | Date | Type | Department | Care Team | Description | +--------+ + + + + | 02/12/ | Hospital | [facility] | Wing Frank | Rectal cancer (HCC) | | 2019 | Encounter | MED [facility] MED[facility] | MD Casimiro [address] | (Primary Dx) | | | | ONCOLOGY CLINIC [address] | [address] | | | | | [place] | [place] [address] | | | | | [place] [address] | [phone] | | | | | [phone] | | | +--------+ + + + [...] + + + | Blood Pressure | 124/82 | 02/12/2019 7:51 AM | | | | | PDT | | + + + + + | Pulse | 75 | 02/12/2019 7:51 AM | | | | | PDT | | + + + + + | Temperature | 36.5 C (97.7 F) | 02/12/2019 7:51 AM | | | | | PDT | | + + + + + | Respiratory Rate | 16 | 02/12/2019 7:51 AM | | | | | PDT | | + + + + + | Oxygen Saturation | 99% | 02/12/2019 7:51 AM | | | | | PDT | | + + + + + | Inhaled Oxygen | - | - | | | Concentration | | | | + + + + + | Weight | 92.9 kg (204 lb 12.9 | 02/12/2019 7:51 AM | | | | oz) | PDT | | + + + + + | Height | - | - | | + + + + + | Body Mass Index | 35.16 | 12/03/2018 2:57 PM | | | [...] | lisinopril | | | 0 | /20 | | | (PRINIVIL, ZESTRIL) | | | | 18 | | | 5 mg tablet | | | | | | + + + +---------+ + + | loperamide | | | 0 | 20 | | | (IMODIUM) 2 mg | [...] encounter Progress Notes Wing Frank MD - 02/12/2019 7:59 AM PDTFormatting of this note might be diff erent from the original. Hem-Onc Progress Note [facility] Pt. Name/Age/: Fang Stephenson 53 y.o. 1965 Med. Record Number: [id number] Date of admission: 02/12/2019 Assessment and plan: 1. 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 Ronaldo Hess, [facility] , Nov, 2014 with no histologically identifiable residual disease, Thus ypT0,N0 (0/7), M0 S/p 4 cycles post-surgical adjuvant CapOx chemotherapy: January-March, Counseling session this morning for sharing results of CT scan chest abdomen and pelvis neg ative for signs to suggest recurrent disease. We suggested growing surgery to of likelihood of long-term remission as patient approaches 5 years from time of initial diagnosis. Recal l patient achieving complete response to earlier chemoradiotherapy. We will asked patient t o follow-up with us one additional check at the end of this year for a total of 5 years of s urveillance monitoring. Discussion acknowledging likely cause and effect relationship between patient's oral contra st and the subsequent GI upset. Oral contrast provides comparatively less overall informati on with regard to surveillance monitoring and can be omitted should there be a need for futu re imaging studies. Subjective: The patient chart and medications were reviewed in detail and the patient was seen and exam ined. Fang Stephenson is a 53 y.o. female who returns today for follow-up and report concernin g surveillance monitoring of a remission of rectal carcinoma. Interim history mostly unremarkable other than post CT scan GI complications first in the f orm of acute diarrhea in the 48 hours following the examination. Then for 2 additional days patient experiencing severe constipation. She wonders if there are any maneuvers available to her to avoid such complications in the future. Patient did make an effort to increase o ral hydration. Patient continues full-time work at [employer]. 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 PSH: Reviewed, no changes to admission H&P. Past Medical History: Diagnosis Date Broken arm age 12 Broken leg age 4 Concussion 12/25 Diabetes mellitus (HCC) Per office of Nicky, patient's PCP MRSA infection Review of Systems: Constitutional: Denies fatigue. Denies high fevers, shaking chills, anorexia, nausea, vomit ing, weight loss, or night sweats. Appetite without changes. States feeling more depressed. States at times after work she has to go home and sleep. Ear, Nose, Mouth, Throat: Denies odynophagia, dysphagia, or tinnitus. Cardiovascular: Denies shortness of breath, dyspnea on exertion, chest pain, palpitations o r orthopnea. Respiratory: Denies cough, hemoptysis, or sputum production. Gastrointestinal: Denies abdominal pain, constipation, diarrhea, melena, or bright red bloo d per rectum. At times feels constipated. At times she bleeds from being constipated. No hel p with metamucil. Genitourinary: Denies hematuria or dysuria. Musculoskeletal: Denies [...] 1,000 Units by Does not apply route. DULoxetine (CYMBALTA) [address] capsule Take 30 mg by mouth Daily. HYDROcodone-acetaminophen (NORCO) 5-325 mg per tablet Take 1 tablet by mouth every 6 ho urs as needed for Pain. hydrocortisone (ANUSOL-HC) 2.5% rectal cream Place rectally 2 times daily. 30 g 2 lisinopril (PRINIVIL, ZESTRIL) 10 mg tablet Take 10 mg by mouth. Loperamide HCl (IMODIUM PO) Take by mouth. metFORMIN (GLUCOPHAGE) 500 mg tablet Take 500 mg by mouth 2 times daily (with breakfast & dinner). OMEGA 3 1000 MG CAPS Take by mouth. psyllium (KONSYL) 28.3 % PACK Take 1 packet by mouth Daily. 30 each 11 No current facility-administered medications on file prior to encounter. Objectives: Temp: 36.5 C (97.7 F) BP: 124/82 Pulse: 75 Resp: 16 SpO2: 99 % on Min/Max Temp past 24 hours:Temp Av.5 C (97.7 F) Min: 36.5 C (97.7 F) Max: 3 6.5 C (97.7 F) No intake or output data in the 24 hours ending 02/12/19 0800 Wt. Admission: Weight: 92.9 kg (204 lb 12.9 oz) Wt. Current: Weight: 92.9 kg (204 lb 12 .9 oz) Physical Exam: Exam: General: The patient is alert and oriented. No acute distress. Psychiatric: Normal mood and affect. Diagnostic studies: TECHNIQUE: After administration of 90 mL Omnipaque 350 intravenously and negative oral contrast, axial CT imaging was obtained through the chest, abdomen, and pelvis with coronal and sagittal reformats. CLINICAL INFORMATION: surveillance of remision of rectal cancer COMPARISON: CT dated 04/07/2018. FINDINGS: BONES: No osteoblastic or osteolytic lesion. No acute osseous abnormality. CHEST: Chest Wall: No significant irregular or axillary lymphadenopathy. Mediastinum and kwame: No lymphadenopathy. Heart and pericardium: Heart size is normal. No pericardial effusion. Vessels: Normal caliber of the thoracic aorta. Lungs: Stable 3 mm right lower lobe subpleural nodule, series 4 image 35. No new nodule. No airspace consolidation. Large airways: Unremarkable. Pleura: No pleural effusion or pneumothorax. ABDOMEN/PELVIS: Abdominal wall: No inguinal lymphadenopathy. Postoperative changes at the anterior abdominal wall. Liver: No soft tissue mass. Gallbladder: Surgically absent. Pancreas: No mass or ductal dilatation. Spleen: Unremarkable. Adrenals: No nodule. Kidneys: Stable atrophy of the right kidney. No nephrolithiasis or hydronephrosis. Unchanged heterogeneous appearance of the superior aspect of the right kidney without distinct mass lesion, probable scarring. Ureters: No hydroureter. Urinary Bladder: Unremarkable. Reproductive organs: Unremarkable appearance of the uterus. No adnexal mass. Bowel: Anastomotic changes at the right upper quadrant. No evidence of right abdominal mass lesion. No evidence of bowel obstruction. Third portion duodenum diverticulum noted. Peritoneum/retroperitoneum: No ascites, free air, or lymphadenopathy. Vessels: Normal caliber of the aorta. IMPRESSION - No evidence of local recurrent or distant metastasis. Stable incidental findings as above. Dictated and Signed by: Han Gomez MD Electronically signed: 01/30/2019 6:03 PM Electronically signed by: Wing Frank, 02/12/2019 8:00 [facility] TIME SPENT 20 MIN. > 50% AT BEDSIDE, WITH FAMILY/PATIENT IN CARE AND WINDOW REPAIRER ON UNIT AND CO ORDINATION OF CARE Portions of this chart may have been created with Coine[employer] voice recognition software. Occasi onal wrong-word or sound-alike substitutions may have occurred due to the inherent rutherford itations of voice recognition software. Please read the chart carefully and recognize, using context, where these substitutions have occurred. Jen Rodriguez CMA - 02/12/2019 7:52 AM PDTREVIEW O F SYSTEMS Constitutional: Denies fatigue. Denies high fevers, shaking chills, anorexia, nausea, vomit ing, weight loss, or night sweats. Appetite without changes. States feeling more depressed. States at times after work she has to go home and sleep. Ear, Nose, Mouth, Throat: Denies odynophagia, dysphagia, or tinnitus. Cardiovascular: Denies shortness of breath, dyspnea on exertion, chest pain, palpitations o r orthopnea. Respiratory: Denies cough, hemoptysis, or sputum production. Gastrointestinal: Denies abdominal pain, constipation, diarrhea, melena, or bright red bloo d per rectum. At times feels constipated. At times she bleeds from being constipated. No hel p with metamucil. Genitourinary: Denies hematuria or dysuria. Musculoskeletal: Denies joint pain or tenderness. Neurologic: Denies headache, visual changes, or numbness/tingling of the extremities. Endocrine: Denies peripheral edema or heat/cold intolerance. Hematologic: Denies spontaneous bruising or bleeding. Integumentary: Denies rash, wounds or other skin concerns. Pain: Denies pain. Note: Here for f/u and review CT done on 01/2019. My chart: documented in this encounter Plan of Treatment Not on filedocumented as of this encounter Visit Diagnoses + + | Diagnosis | + + | Rectal cancer (HCC) - Primary Malignant neoplasm of rectum | + + documented in this encounter"
--- OUTSIDE RECORDS SUMMARY | ~2020-02-23 | XMS | Encounter Summary ---
Demographics + + + | Address | [address] [facility] [address] | | | [place] [address] | + + + | Home Phone [...] Team Providers + +------+ + | Care Fertilizer Loader Name | Role | Phone | + [...] | | IMAGING [address] | [address]. [place] | | | | | [address] [place] | [place] [address] | | | | | [place] [address] | | | | | | [phone] | | | +--------+ + + + + Social History + +-------+ +--------+------+ | Tobacco Use | Types | Packs/Day | Years | Date | | | | | Used | | + +-------+ +--------+------+ | Never Assessed | | | | | + +-------+ +--------+------+ + + + | Sex Assigned at [...] + | TERRY DIGITAL | Routin | 09/01/2013 | | Results for this | | SCREENING BILATERAL | e | 3:00 PM | | procedure are in the | | | | PST | | results section. | + +--------+ + + + documented in this encounter Results TERRY Digital Screening Bilateral (09/01/2013 3:00 PM PST) + + | Specimen | [...]
--- OUTSIDE RECORDS SUMMARY | ~2020-02-23 | XMS | Encounter Summary ---
Demographics + + + | Address | [address] [facility] | | | [place] [address] | + + + | Home Phone [...] Team Providers + +------+ + | Care Therapeutic Massage Technician Name | Role | Phone | [...] [place] | | | | | [address] [place] | [place] [address] | | | | | [place] [address] | [phone] | | | | | [phone] | | | +--------+ + + + [...]
--- OUTSIDE RECORDS SUMMARY | ~2020-02-23 | XMS | Encounter Summary ---
Demographics + + + | Address | [address] [facility] | | | [place] [address] | + + + | Home Phone [...] Team Providers + +------+ + | Care Buyer Grain Name | Role | Phone | + [...] [place], [place] | | | | | [place], | [address] | | | | | [place] [address] | | | | | | [phone] | | | +--------+ + + + [...]
--- OUTSIDE RECORDS SUMMARY | ~2020-02-23 | XMS | Encounter Summary ---
Demographics + + + | Address | [address] [facility] | | | [place] [address] | + + + | Home Phone [...] Team Providers + +------+ + | Care Peripatologist Name | Role | Phone | + [...] | neoplasm of | Wing | [address] [place] | | | | | rectum (HCC) | MD Casimiro | [place], | | | | | Procedures | [address] | [place] [address] | | | | | [place] | [place] | Phone: | | | | | [place] | [facility] [place] | [phone] | | | | | INJECTION, 1 | [address] | Fax: | | | | | [place] | Phone: | [phone] | | | | | | [phone] | | | | | | | Fax: | | | | | | | [phone] | | +--------+--------+ + + + + Encounter Details +--------+ + + + + | Date | Type | Department | Care Team | Description | +--------+ + + + + | 10/30/ | Hospital | [facility] | Wing Frank | Rectal cancer (HCC) | | 2017 | Encounter | MED CTR CHEMO | MD Casimiro [address] | | | | | INFUSION [address] | [address] [place] | | | | | [place], | [place] [address] | | | | | [place] [address] | [phone] | | | | | [phone] | | | +--------+ + + + [...]
--- OUTSIDE RECORDS SUMMARY | ~2020-02-23 | XMS | Encounter Summary ---
Demographics + + + | Address | [address] [facility] [address] | | | [place] [address] | + + + | Home Phone [...] Providers + +------+ + | Care Enrollment Management Manager Name | Role | Phone | [...] ST [place] | | | | | [place], | [place] [address] | | | | | [place] [address] | [phone] | | | | | [phone] | | | +--------+ + + + [...]
--- OUTSIDE RECORDS SUMMARY | ~2020-02-23 | XMS | Encounter Summary ---
Demographics + + + | Address | [address] [facility] | | | [place] [address] | + + + | Home Phone [...] + + + | Author | [facility] | | | and [place] | + + + | Organization | [facility] | | [...] Providers + +------+ + | Care Telecommunications Project Manager Name | Role | Phone [...] [place] | | | | | [address] [place] | [place] [address] | | | | | [place] [address] | [phone] | | | | | [phone] | | | +--------+ + + + [...]
--- OUTSIDE RECORDS SUMMARY | ~2020-02-23 | XMS | Encounter Summary ---
Demographics + + + | Address | [address] [facility] | | | [place] [address] | + + + | Home Phone [...] Team Providers + +------+ + | Care General Production Manager Name | Role | Phone | [...] | | | IMAGING [address] | [address]. [place] | | | | | [address] [place] | [place] [address] | | | | | [place] [address] | | | | | | [phone] | | | +--------+ + + + [...]
--- OUTSIDE RECORDS SUMMARY | ~2020-02-23 | XMS | Encounter Summary ---
Demographics + + + | Address | [address] [facility] | | | [place] [address] | + + + | Home Phone | | + + + | Preferred Language | Unknown | + + + | Marital Status | Single | + + + | Mormonism Affiliation | 1041 | + + + [...] Providers + +------+ + | Care Field Representative Name | Role | Phone | + [...] | | Rectal | Frank, | [address] [place] | | | | | cancer (HCC) | Wing | [place], | | | | | Procedures | MD Casimiro | [place] [address] | | | | | CT Chest | [address] | Phone: | | | | | Abdomen | [place] | [phone] | | | | | Pelvis w | [place], [place] | Fax: | | | | | Contrast | [address] | [phone] | | | | | | Phone: | | | | | | | [phone] | | | | | | | Fax: | | | | | | | [phone] | | +--------+--------+ + + + + [...] | | Rectal | Frank, | [address] [place] | | | | | cancer (HCC) | Wing | [place], | | | | | Procedures | MD Casimiro | [place] [address] | | | | | CT Chest | [address] | Phone: | | | | | Abdomen | [place] | [phone] | | | | | Pelvis w | [place], [place] | Fax: | | | | | Contrast | [address] | [phone] | | | | | | Phone: | | | | | | | [phone] | | | | | | | Fax: | | | | | | | [phone] | | +--------+--------+ + + + + Encounter Details +--------+ + + + + | Date | Type | Department | Care Team | Description | +--------+ + + + + | 04/07/ | Hospital | [facility] | Wing Frank | Rectal cancer (HCC) | | 2018 | Encounter | MED CTR CT [address] | MD Casimiro [address] | | | | | [place], | [address] [place] | | | | | [place] [address] | [place] [address] | | | | | [phone] | [phone] | | | | | | | [...] + + | Performing | Address | City/[facility] | Phone Number | | [...]
--- OUTSIDE RECORDS SUMMARY | ~2020-02-23 | XMS | Encounter Summary ---
Demographics + + + | Address | [address] [facility] | | | [place] [address] | + + + | Home Phone [...] + + + | Author | [facility] | | | and [place] | + + + | Organization | [facility] [...] Team Providers + +------+ + | Care Rabbler Name | Role | Phone | + +------+ + | Cindy Miramontes MD | PCP | | + +------+ + Encounter Details +--------+ + + + + | Date | Type | Department | Care Team | Description | +--------+ + + + + | 02/21/ | [facility] | [facility] | Wing Frank | Rectal cancer (HCC) | | 2015 | Encounter | MED CTR MEDICAL | MD Casimiro [address] | | | | | ONCOLOGY CLINIC [address] | [address] | | | | | [address] [place] | [place] [address] | | | | | [place] [address] | [phone] | | | | | [phone] | | | +--------+ + + + [...] therapy. We discussed patient's upcoming visit to [place] for r estaging in anticipation of reversal of ileostomy. Wing Frank Leah Rodriguez, E MAIL SYSTEM ADMINISTRATOR - 02/21/2015 9:30 AM PDTREVIEW OF SYSTEMS [...] ST. | [address] | [place], [place] | [phone] | | [facility] | | [address] | | | - LABORATORY | | [...] | [address] | [place] | [phone] | | [facility] | | [address] | | | - LABORATORY | | [...] + | [facility] | [address] | [place] | [phone] | | [facility] | | [address] | | | - LABORATORY | | [...] mL/min/1.73m2 | [facility] | | | RUSSIAN | RATE,ESTIMATED | | MEDICAL | | | | mL/min/1.48q2Pqqy than | | CENTER - | | [...] | 9.3 | 8.3 - 10.5 | [facility] | | | | | mg/dL | [facility] | | | | | | MEDICAL | | | | | | CENTER - | | | | | | LABORATORY | | + + + + + + | Albumin | 3.6 | 3.2 - 5.0 g/dL | [facility] | | | | | | [facility] | | | | | | MEDICAL [...] [address] | [place] | [phone] | | [facility] | | [address] | | | - LABORATORY | | | | + + + + + documented in this encounter Visit Diagnoses + + | Diagnosis | + + | Rectal cancer (HCC) Malignant neoplasm of rectum | + + documented in this encounter"
--- OUTSIDE RECORDS SUMMARY | ~2020-02-23 | XMS | Encounter Summary ---
Demographics + + + | Address | [address] [facility] | | | [place] [address] | + + + | Home Phone [...] Team Providers + +------+ + | Care Warehouse Coordinator Name | Role | Phone | + +------+ + | Cindy Miramontes MD | PCP | | + +------+ + Encounter Details +--------+ + + + + | Date | Type | Department | Care Team | Description | +--------+ + + + + | 02/21/ | Documentati | [facility] | Dayna Guy | | | 2014 | on | MED CNT ONCOLOGY | A, OT | | | | | THERAPY [address] | | | | | | [address] [place], | | | | | | [place] [address] | | | | | | [phone] | | | +--------+ + + + [...] Guy OT - 02/21/2015 10:56 [facility] [address] [facility] [address] Oncology Rehab Screening Date: 02/21/2015 Patient Information Patient Name: Fang Stephenson Date of : 1965 Age: 49 y.o. Patient was seen for oncology rehab follow-up visit. Patient reports no significant change s in physical functioning. 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 Patient also reports she walks for approx 15 min every day at her lunch break. Encouraged patient to continue with her curren t plan as she is doing well managing her treatments, fatigue, and maintaining level of physi dayen activity. Will continue to follow-up in cancer center as needed. Will have follow up visit in cancer center. Electronically signed by: Dayna Guy OT, 02/21/2015 10:56 Patient Name: Fang Stephenson/: 1965/ documented in this encounter Plan of Treatment Not on filedocumented as of this encounter Visit Diagnoses Not on filedocumented in this encounter"
--- OUTSIDE RECORDS SUMMARY | ~2020-02-23 | XMS | Encounter Summary ---
Demographics + + + | Address | [address] [facility] | | | [place] [address] | + + + | Home Phone [...] Team Providers + +------+ + | Care Ortho Tech Name | Role | Phone | [...] | | cancer (HCC) | Wing | [place], | | | | | Procedures | MD Casimiro | [place] [address] | | | | | CT Chest | [address] | Phone: | | | | | Abdomen | [place] | [phone] | | | | | Pelvis w | [place], [place] | Fax: | | | | | Contrast | [address] | [phone] | | | | | | Phone: | | | | | | | [phone] | | | | | | | Fax: | | | | | | | [phone] | | +--------+--------+ + + + + [...] + + | 02/06/ | Hospital | [facility] | Wing Frank | Rectal cancer (HCC) | | 2016 | Encounter | MED CTR CT [address] | MD Casimiro [address] | | | | | [place], | [address] [place] | | | | | [place] [address] | [place] [address] | | | | | [phone] | [phone] | | | | | | | [...] CONTRAST | e | 9:19 AM | ([facility]) | procedure are in the | | [...]
--- OUTSIDE RECORDS SUMMARY | ~2020-02-23 | XMS | Encounter Summary ---
Demographics + + + | Address | [address] [facility] | | | [place] [address] | + + + | Home Phone [...] Team Providers + +------+ + | Care Shine Worker Name | Role | Phone | + +------+ + | Cindy Miramontes MD | PCP | | + +------+ + Encounter Details +--------+ + + + + | Date | Type | Department | Care Team | Description | +--------+ + + + + | 01/19/ | [facility] | [facility] | Wing Frank | Rectal cancer (HCC) | | 2015 | Encounter | MED CTR MEDICAL | MD Casimiro [address] | (Primary Dx) | | | | ONCOLOGY CLINIC [address] | [address] [place] | | | | | [place] | [place] [address] | | | | | [place] [address] | [phone] | | | | | [phone] | | | +--------+ + + + [...]
--- OUTSIDE RECORDS SUMMARY | ~2020-02-23 | XMS | Encounter Summary ---
Demographics + + + | Address | [address] [facility] | | | [place] [address] | + + + | Home Phone | | + + + | Preferred Language | Unknown | + + + | Marital Status | Single | + + + | Christian Affiliation | 1041 | + + + [...] Team Providers + +------+ + | Care Piling Cutter Name | Role | Phone | + [...] | neoplasm of | Wing | [place] | | | | | rectum (HCC) | MD Casimiro | [place] | | | | | Procedures | [address] | [place] [address] | | | | | OR IRON | [place] | Phone: | | | | | [place] | [place], [place] | [phone] | | | | | INJECTION, 1 | [address] | Fax: | | | | | [place] | Phone: | [phone] | | | | | | [phone] | | | | | | | Fax: | | | | | | | [phone] | | +--------+--------+ + + + + Encounter Details +--------+ + + + + | Date | Type | Department | Care Team | Description | +--------+ + + + + | 03/05/ | Hospital | [facility] | Wing Frank | Rectal cancer (HCC) | | 2016 | Encounter | MED CTR CHEMO | MD Casimiro [address] | | | | | INFUSION [address] [place] | | | | | [place], | [place] [address] | | | | | [place] [address] | [phone] | | | | | [phone] | | | +--------+ + + + [...]
--- OUTSIDE RECORDS SUMMARY | ~2020-02-23 | XMS | Encounter Summary ---
Demographics + + + | Address | [address] [facility] [address] | | | [place] [address] | + + + | Home Phone [...] Team Providers + +------+ + | Care Physical Therapy Instructor Name | Role | Phone | + [...] [place] | | | | | [address] [place] | [place] [address] | | | | | [place] [address] | [phone] | | | | | [phone] | | | +--------+ + + + [...]
--- OUTSIDE RECORDS SUMMARY | ~2020-02-23 | XMS | Encounter Summary ---
Demographics + + + | Address | [address] [facility] | | | [place] [address] | + + + | Home Phone | | + + + | Preferred Language | Unknown | + + + | Marital Status | Single | + + + | Jewish Affiliation | 1041 | + + + [...] Team Providers + +------+ + | Care Photogrammetric Stereo Compiler Name | Role | Phone | + +------+ + | Cindy Miramontes MD | PCP | | + +------+ + Encounter Details +--------+ + + + + | Date | Type | Department | Care Team | Description | +--------+ + + + + | 09/20/ | Hospital | [facility] | Max Anderson DO | | | 2014 | Encounter | MED CTR RADIATION | [address] | | | | | ONCOLOGY [address] | [place], [place] | | | | | [place], | [address] | | | | | [place] [address] | | | | | | [phone] | | | +--------+ + + + [...]
--- OUTSIDE RECORDS SUMMARY | ~2020-02-23 | XMS | Encounter Summary ---
Demographics + + + | Address | [address] [facility] [address] | | | [place] [address] | + + + | Home Phone [...] Team Providers + +------+ + | Care Pelt Grader Name | Role | Phone | + +------+ + | Kera Hernandez PA-C | PCP | | + +------+ + Encounter Details +--------+ + + + + | Date | Type | Department | Care Team | Description | +--------+ + + + + | 05/08/ | Orders Only | [facility] | Provider, | | | 2019 | | SYSTEM GENERIC OP | MD Milton Morocho | | | | | CONVERSION [address] | [place] | | | | | [address] [place], [place] | [place] [address] | | | | | [address] | | | | | | [phone] | | | +--------+ + + + [...]
--- OUTSIDE RECORDS SUMMARY | ~2020-02-23 | XMS | Encounter Summary ---
Demographics + + + | Address | [address] [facility] [address] | | | [place] [address] | + + + | Home Phone [...] Team Providers + +------+ + | Care Kitchen Hand Name | Role | Phone | + [...] | | neoplasm of | [address] | Services [address] | | | | | rectum (HCC) | [place] | [address] | | | | | | [place], [place] | [place], | | | | | | [address] | [place] [address] | | | | | | Phone: | Phone: | | | | | | [phone] | [phone] | | | | | | Fax: | Fax: | | | | | | [phone] | [phone] | +--------+ + + + + + Reason for Visit + + + | Reason | Comments | + + + | IDT Note | | + + + Encounter Details +--------+ + + + + | Date | Type | Department | Care Team | Description | +--------+ + + + + | 01/20/ | Telephone | [facility] | Naa Santiago, | IDT Note | | 2014 | | MED CTR CHEMO | RN | | | | | INFUSION [address] | | | | | | [address] [place], | | | | | | [place] [address] | | | | | | [phone] | | | +--------+ + + + [...]
--- OUTSIDE RECORDS SUMMARY | ~2020-02-23 | XMS | Encounter Summary ---
Demographics + + + | Address | [address] [facility] [address] | | | [place] [address] | + + + | Home Phone | | + + + | Preferred Language | Unknown | + + + | Marital Status | Single | + + + | Rastafarian Affiliation | 1041 | + + + | Race | Unknown | + + + | Ethnic Group | Unknown | + + + Author + + + | Author | [facility] | | | and [place] | + + + | Organization | [facility] | | | [...] Team Providers + +------+ + | Care Brake Liner Name | Role | Phone | + [...] | | | | Procedures | [place], [place] | [place] | | | | | [place] OFFICE | [address] | [place], [place] | | | | | OUTPATIENT | Phone: | [phone] Phone: | | | | | VISIT 25 | [phone] | [phone] | | | | | MINUTES | Fax: | Fax: | | | | | | [phone] | [phone] | +--------+--------+ + + + + Encounter Details +--------+ + + + + | Date | Type | Department | Care Team | Description | +--------+ + + + + | 03/05/ | Hospital | [facility] | Wing Frank | Rectal cancer (HCC) | | 2017 | Encounter | MED CTR MEDICAL | MD Casimiro [address] | (Primary Dx) | | | | ONCOLOGY CLINIC [address] | [address] [place] | | | | | [address] [place] | [place] [address] | | | | | [place] [address] | [phone] | | | | | [phone] | | | +--------+ + + + [...] + + + | Blood Pressure | 149/84 | 03/05/2017 9:16 AM | | | | | PDT | | + + + + + | Pulse | 82 | 03/05/2017 9:16 AM | | | | | PDT | | + + + + + | Temperature | 37.1 C (98.8 F) | 03/05/2017 9:16 AM | | | | | PDT | | + + + + + | Respiratory Rate | 16 | 03/05/2017 9:16 AM | | | | | PDT | | + + + + + | Oxygen Saturation | 98% | 03/05/2017 9:16 AM | | | | | PDT | | + + + + + | Inhaled Oxygen | - | - | | | Concentration | | | | + + + + + | Weight | 93.8 kg (206 lb 12.7 | 03/05/2017 9:16 AM | | | | oz) | PDT | | + + + + + | Height | - | - | | + + + + + | Body Mass Index | 34.41 | 01/30/2017 10:34 AM | | | [...] this encounter Progress Wing Pinzon MD - 03/05/2017 9:29 AM PDTFormatting of this note might be diff erent from the original. Hem-Onc Progress Note [facility] Pt. Name/Age/: Fang Ziegler Sachin 51 y.o. 1965 Med. Record Number: [id number] Date of admission: 03/05/2017 Assessment and plan: 1. 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 Ronaldo Hess, [facility] , Nov, 2014 with no histologically identifiable residual disease, Thus ypT0,N0 (0/7), M0 S/p 4 cycles post-surgical adjuvant CapOx chemotherapy: January-March, Discussion today first with regard to differential diagnosis of chest pain. We discussed p ossible future need for urgent evaluation should patient again experienced acute severe disc omfort and have encouraged patient to use emergency care facilities for cardiac evaluation i n that setting. Follow-up to continue here on a quarterly basis Subjective: The patient chart and medications were reviewed in detail and the patient was seen and exam ined. Fang Stephenson is a 51 y.o. female returns today for longitudinal follow-up monitoring a remission of carcinoma of the rectum. Interim history noting patient continuing full-time work but feeling uncomfortable with reg zulema to other workers complaints concerning frequent bathroom breaks. Patient has received a ccommodation for this referable to earlier treatment but is encountering resistance that wor k. She describes a discomfort occurring when she becomes recumbent described as an acute feeli ng of discomfort followed by a sense of coolness. Patient also aware of an enlarging ventra l hernia. This may or may not be related to an earlier episode of anterior chest pain. Celeste potts has been seen by cardiology and is not thought to have heart disease. PSH: Reviewed, no changes to admission H&P. Review of Systems: Constitutional: Denies fatigue. Denies high fevers, shaking chills, anorexia, , vomiting, w eight loss, or night sweats. Appetite without changes. States intermittent nausea. Ear, Nose, Mouth, Throat: Denies odynophagia, dysphagia, or tinnitus. Cardiovascular: Denies shortness of breath, dyspnea on exertion, chest pain, palpitations o r orthopnea. Respiratory: Denies cough, hemoptysis, or sputum production. Gastrointestinal: Denies abdominal pain, constipation, diarrhea, melena, or bright red bloo d per rectum. States over the last few weeks shes had to use the bathroom frequently with ei ther loose BM and frequent urinating. Genitourinary: Denies hematuria or dysuria. Musculoskeletal: Denies [...] chemotherapy Nitrofurantoin Rash Objectives: Temp: 37.1 C (98.8 F) BP: 149/84 Pulse: 82 Resp: 16 SpO2: 98 % on Min/Max Temp past 24 hours:Temp Av.1 C (98.8 F) Min: 37.1 C (98.8 F) Max: 3 7.1 C (98.8 F) No intake or output data in the 24 hours ending 03/05/17 0929 Wt. Admission: Weight: 93.8 kg (206 lb 12.7 oz) Wt. Current: Weight: 93.8 kg (206 lb 12 .7 oz) Physical Exam: Exam: General: The patient is alert and oriented. No acute distress. HEENT: PERRL, Oral mucosa intact. Neck is supple. Cardiovascular: Regular rate and rhythm, no murmur. Respiratory: Clear to auscultation and percussion. Breast: Not examined Abdomen: Soft, mild tenderness at mid abdomen, no hepatospenomegaly. No palpable masses. Bowel sounds [...] the Assessment and Plan. Recent Labs Lab 03/05/17 0857 WBC 5.3 HGB 12.2 HCT 36.7 PLT 199 Electronically signed by: Wing Frank, 03/05/2017 9:29 [facility] TIME SPENT 20 MIN. > 50% AT BEDSIDE, WITH FAMILY/PATIENT IN CARE AND CURB SETTER HELPER ON UNIT AND CO ORDINATION OF CARE Portions of this chart may have been created with EXPO voice recognition software. Occasi onal wrong-word or sound-alike substitutions may have occurred due to the inherent rutherford itations of voice recognition software. Please read the chart carefully and recognize, using context, where these substitutions have occurred. Jen Rodriguez CMA - 03/05/2017 9:22 AM PDTREVIEW O F SYSTEMS Constitutional: Denies fatigue. Denies high fevers, shaking chills, anorexia, , vomiting, w eight loss, or night sweats. Appetite without changes. States intermittent nausea. Ear, Nose, Mouth, Throat: Denies odynophagia, dysphagia, or tinnitus. Cardiovascular: Denies shortness of breath, dyspnea on exertion, chest pain, palpitations o r orthopnea. Respiratory: Denies cough, hemoptysis, or sputum production. Gastrointestinal: Denies abdominal pain, constipation, diarrhea, melena, or bright red bloo d per rectum. States over the last few weeks shes had to use the bathroom frequently with ei ther loose BM and frequent urinating. Genitourinary: Denies hematuria or dysuria. Musculoskeletal: Denies joint pain or tenderness. Neurologic: Denies headache, visual changes, or numbness/tingling of the extremities. Endocrine: Denies peripheral edema or heat/cold intolerance. Hematologic: Denies spontaneous bruising or bleeding. Integumentary: Denies rash, wounds or other skin concerns. Pain: Denies pain. Note: Pt is here for 2 hour tx and labs My chart: documented in this encounter Plan of Treatment Not on filedocumented as of this encounter Procedures + +--------+ + + + | Procedure Name | Priori | Date/Time | Associated Diagnosis | Comments | | | ty | | | | + +--------+ + + + | PATHOLOGY - EXTERNAL | | 06/23/2017 | | Results for this | | SCAN | | 12:00 AM | | procedure are in the | | | | PDT | | results section. | + +--------+ + + + | IRON AND TRANSFERRIN | STAT | 03/05/2017 | Rectal cancer | Results for this | | | | 8:57 AM | (HCC) | procedure are in the | | | | PDT | | results section. | + +--------+ + + + | CBC WITH | STAT | 03/05/2017 | Rectal cancer | Results for this | | DIFFERENTIAL | | 8:57 AM | (HCC) | procedure are in the | | | | PDT | | results section. | + +--------+ + + + | FERRITIN | STAT | 03/05/2017 | Rectal cancer | Results for this | | | | 8:57 AM | (HCC) | procedure are in the | | | | PDT | | results section. | + +--------+ + + + | CEA | Routin | 03/05/2017 | Rectal cancer | Results for this | | | e | 8:57 AM | (HCC) | procedure are in the | | | | PDT | | results section. | + +--------+ + + + | COMPREHENSIVE | STAT | 03/05/2017 | Rectal cancer | Results for this | | METABOLIC PANEL | | 8:57 AM | (HCC) | procedure are in the | | | | PDT | | results section. | + +--------+ + + + documented in this encounter Results PATHOLOGY - EXTERNAL SCAN (06/23/2017 12:00 AM PDT) + + + | Narrative | Performed At | + + + | Ordered by an | | | unspecified provider. | | + + + CEA (03/05/2017 8:57 AM PDT) + +-------+ + + + | Component | Value | Ref Range | Performed | Pathologist | | | | | At | Signature | + +-------+ + + + | CEA | 5.2 | 0.0 - 10.0 | [facility] | | | | | ng/mL | [...] [address] | [place] | [phone] | | [facility] | | [address] | | | - LABORATORY | | | | + + + + + Ferritin (03/05/2017 8:57 AM PDT) + +-------+ + + + | Component | Value | Ref Range | Performed | Pathologist | | | | | At | Signature | + +-------+ + + + | FERRITIN | 12 | 11 - 307 ng/mL | [facility] [...] + | [facility] | [address] | [place] | [phone] | | [facility] | | [address] | | | - LABORATORY | | | | + + + + + Iron and Transferrin (03/05/2017 8:57 AM PDT) + + + + + + | Component | Value | Ref Range | Performed | Pathologist | | | | | At | Signature | + + + + + + | Iron | 39 (L) | 40 - 150 ug/dL | [facility] | | | | | | [facility] | | | | | | MEDICAL | | | | | | CENTER - | | | | | | LABORATORY | | + + + + + + | TRANSFERRIN | 250.3 | 240.0 - 480.0 | [facility] | | | | | mg/dL | [facility] | | | | | | MEDICAL | | | | | | CENTER - | | | | | | LABORATORY | | + + + + + + | TIBC | 350 | 235 - 425 ug/dL | [facility] | | | | | | [facility] | | | | | | MEDICAL | | | | | | CENTER - | | | | | | LABORATORY | | + + + + + + | % | 11.1 (L) | 20.0 - 55.0 % | [...] + | [facility] | [address] | [place] | [phone] | | [facility] | | [address] | | | - LABORATORY | | | | + + + + + Comprehensive Metabolic Panel (03/05/2017 8:57 AM PDT) + + + + + [...] + + + + | CO2 | 20 (L) | 24 - 31 mmol/L | [...] + + + + | Glucose | 173 (H) | 70 - 109 mg/dL | [...] + + + + | Creatinine | 0.88 | 0.60 - 1.30 | [facility] | [...] mL/min/1.73m2 | [facility] | | | [place] | RATE,ESTIMATED | | MEDICAL | | | | mL/min/1.59m0Jyzd than | | CENTER - | | [...] | 9.6 | 8.3 - 10.5 | [facility] | | | | | mg/dL | [facility] | | | | | | MEDICAL | | | | | | CENTER - | | | | | | LABORATORY | | + + + + + + | Albumin | 3.9 | 3.2 - 5.0 g/dL | [facility] | | | | | | [facility] [...] + + + + | AST | 25Comment: This is an | 10 - 42 [...] + + + + | ALT | 18Comment: This is an | 6 - 45 [...] + + | Globulin | 3.0 | 2.1 - 3.8 g/dL | [facility] [...] + + + + | BUN/Creatin | 18.2 | | [facility] | | | ine [...] [address] | [place] | [phone] | | [facility] | | [address] | | | - LABORATORY | | | | + + + + + CBC with Differential (03/05/2017 8:57 AM PDT) + + + + + [...] + + + + | RBC | 4.62 | 3.70 - 5.20 | [facility] | [...] + + + + | Hematocrit | 36.7 | 34.0 - 47.0 % | [facility] | | | | | | [facility] | | | | | | MEDICAL | | | | | | CENTER - | | | | | | LABORATORY | | + + + + + + | MCV | 79.4 (L) | 83.0 - 101.0 fL | [facility] | | | | | | [facility] | | | | | | MEDICAL | | | | | | CENTER - | | | | | | LABORATORY | | + + + + + + | MCH | 26.3 (L) | 28.0 - 35.0 pg | [...] + + + + | RDW-CV | 15.3 (H) | <15.0 % | [facility] | | | | | | [facility] | | | | | | MEDICAL | | | | | | CENTER - | | | | | | LABORATORY | | + + + + + + | Platelet | 199 | 140 - 440 K/uL | [facility] | | | Count | | | [facility] | | | | | | MEDICAL | | | | | | CENTER - | | | | | | LABORATORY | | + + + + + + | MPV | 8.6 | fL | [facility] | | | | | | [facility] | | | | | | MEDICAL | | | | | | CENTER - | | | | | | LABORATORY | | + + + + + + | % | 67.1 | 45.0 - 82.0 % | [facility] | | | Neutrophils | | | [facility] | | | | | | MEDICAL | | | | | | CENTER - | | | | | | LABORATORY | | + + + + + + | % | 21.5 | 20.0 - 45.0 % | [facility] [...] + + + + | % | 2.1 | 0.0 - 5.0 % | [facility] [...] + + + + | Absolute | 1.10 | 0.60 - 3.20 | [facility] | [...] [address] | [place] | [phone] | | [facility] | | [address] | | | - LABORATORY | | | | + + + + + documented in this encounter Visit Diagnoses + + | Diagnosis | + + | Rectal cancer (HCC) - Primary Malignant neoplasm of rectum | + + documented in this encounter"
--- OUTSIDE RECORDS SUMMARY | ~2020-02-23 | XMS | Encounter Summary ---
Demographics + + + | Address | [address] [facility] | | | [place] [address] | + + + | Home Phone [...] Team Providers + +------+ + | Care Site Project Manager Name | Role | Phone [...] | | | | Procedures | [place], [place] | [place] | | | | | [place] OFFICE | [address] | [place], [place] | | | | | OUTPATIENT | Phone: | [phone] Phone: | | | | | VISIT 25 | [phone] | [phone] | | | | | MINUTES | Fax: | Fax: | | | | | | [phone] | [phone] | +--------+--------+ + + + + Encounter [...] [place] | | | | | [address] [place] | [place] [address] | | | | | [place] [address] | [phone] | | | | | [phone] | | | +--------+ + + + [...] erent from the original. Hem-Onc Progress Note [facility] Pt. Name/Age/: Fang Ziegler Sachin 51 y.o. 1965 Med. Record Number: [id number] Date of admission: 03/05/2017 Assessment and plan: 1. 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 Ronaldo Hess, [facility] , Nov, 2014 with no histologically identifiable [...] Electronically signed by: Wing Frank, 03/05/2017 9:29 [facility] TIME SPENT 20 MIN. > 50% AT BEDSIDE, WITH FAMILY/PATIENT IN CARE AND PROCUREMENT DIRECTOR ON UNIT AND CO ORDINATION OF CARE Portions of this chart may have been created with [employer] voice recognition software. Occasi onal wrong-word or [...] [address] | [place] | [phone] | | [facility] | | [address] | | | - LABORATORY | | [...] + | [facility] | [address] | [place] | [phone] | | [facility] | | [address] | | | - LABORATORY | | [...] [facility] | | | | | | [facility] | | | | | | MEDICAL | | | | | | CENTER - | | | | | | LABORATORY | | + + + + + + | TRANSFERRIN | 250.3 | 240.0 - 480.0 | [facility] | | | | | mg/dL | [facility] | | | | [...] + | [facility] | [address] | [place] | [phone] | | [facility] | | [address] | | | - LABORATORY | | [...] | | MEDICAL | | | | mL/min/1.46c7Xjkh than | | CENTER - | | [...] | 9.6 | 8.3 - 10.5 | [facility] | | | | | mg/dL [...] | | ine Ratio | | | [facility] | | | | [...] [address] | [place] | [phone] | | [facility] | | [address] | | | - LABORATORY | | [...] [address] | [place] | [phone] | | [facility] | | [address] | | | - LABORATORY | | | | + + + + + documented in this encounter Visit Diagnoses + + | Diagnosis | + + | Rectal cancer (HCC) - Primary Malignant neoplasm of rectum | + + documented in this encounter"
--- OUTSIDE RECORDS SUMMARY | ~2020-02-23 | XMS | Encounter Summary ---
Demographics + + + | Address | [address] [facility] [address] | | | [place] [address] | + + + | Home Phone [...] Team Providers + +------+ + | Care Continuous Still Operator Name | Role | Phone | [...] | | | | | [address] [place] | [place] [address] | | | | | [place] [address] | [phone] | | | | | [phone] | | | +--------+ + + + [...]
--- OUTSIDE RECORDS SUMMARY | ~2020-02-23 | XMS | Encounter Summary ---
Demographics + + + | Address | [address] [facility] | | | [place] [address] | + + + | Home Phone | | + + + | Preferred Language | Unknown | + + + | Marital Status | Single | + + + | Quaker Affiliation | 1041 | + + + | Race | Unknown | + + + | Ethnic Group | Unknown | + + + Author + + + | Author | [facility] | | | and [place] | + + + | Organization | [facility] | | [...] | | neoplasm of | [address] | Services [address] | | | | | rectum (HCC) | [place] | [address] | | | | | | [place], [place] | [place], | | | | | | [address] | [place] [address] | | | | | | Phone: | Phone: | | | | | | [phone] | [phone] | | | | | | Fax: | Fax: | | | | | | [phone] | [phone] | +--------+ + + + + + Encounter Details +--------+ + + + + | Date | Type | Department | Care Team | Description | +--------+ + + + + | 04/20/ | Hospital | [facility] | Artur, | Malignant neoplasm | | 2015 | Encounter | MED CTR NUTRITION | Casimiro Crockett MD [address] | of rectum (HCC) | | | | SERVICES [address] [place] | (Primary Dx) | | | | [address] [place], | [place] [address] | | | | | [place] [address] | [phone] | | | | | [phone] | | | | | | | [...] 4.0 01/31/2015 Estimated needs (wt. 80kg ABW) 1627-1766 kcals/day 80 gm pro/day Medications: noted ASSESSMENT/PLAN: [...]
--- OUTSIDE RECORDS SUMMARY | ~2020-02-23 | XMS | Encounter Summary ---
Demographics + + + | Address | [address] [facility] | | | [place] [address] | + + + | Home Phone [...] Team Providers + +------+ + | Care Coupon Redemption Clerk Name | Role | Phone | + [...] + + | 03/15/ | Telephone | [facility] | [facility] | Other | | 2014 | | MED CTR MEDICAL | MD Casimiro [address] | | | | | ONCOLOGY CLINIC [address] | [address] [place] | | | | | [address] [place] | [place] [address] | | | | | [place] [address] | [phone] | | | | | [phone] | | | +--------+ + + + [...]
--- OUTSIDE RECORDS SUMMARY | ~2020-02-23 | XMS | Encounter Summary ---
Demographics + + + | Address | [address] [facility] | | | [place] [address] | + + + | Home Phone [...] Team Providers + +------+ + | Care Staff Assistant Name | Role | Phone | + [...] [address] | | | | | MS OFFICE | [address] | [place] | | | | | OUTPATIENT | [place], | [place], [place] | | | | | VISIT [address] | [place] | [address] Phone: | | | | | MINUTES | [address] | [phone] | | | | | | Phone: | Fax: | | | | | | [phone] | [phone] | | | | | | Fax: | | | | | | | [phone] | | +--------+--------+ + + + + Encounter Details +--------+ + + + + | Date | Type | Department | Care Team | Description | +--------+ + + + + | 02/12/ | Hospital | [facility] | Wing Frank | Rectal cancer (HCC) | | 2019 | Encounter | [facility] | MD Casimiro [address] | (Primary Dx) | | | | ONCOLOGY CLINIC [address] | [address] [place] | | | | | [address] [place] | [place] [address] | | | | | [place] [address] | [phone] | | | | | [phone] | | | +--------+ + + + [...] erent from the original. Hem-Onc Progress Note [facility] Pt. Name/Age/: Fang Stephenson 53 y.o. 1965 Med. Record Number: [id number] Date of admission: 02/12/2019 Assessment and plan: 1. 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 Ronaldo Hess, [facility] , Nov, 2014 with no histologically identifiable [...] ral hydration. Patient continues full-time work at [employer]. Her job has allowed her accommodat ion [...] Electronically signed by: Wing Frank, 02/12/2019 8:00 [facility] TIME SPENT 20 MIN. > 50% AT BEDSIDE, WITH FAMILY/PATIENT IN CARE AND RUBBER CALENDER HELPER ON UNIT AND CO ORDINATION OF CARE Portions of this chart may have been created with GreenDot Trans voice recognition software. Occasi onal wrong-word or [...]
--- OUTSIDE RECORDS SUMMARY | ~2020-02-23 | XMS | Encounter Summary ---
Demographics + + + | Address | [address] [facility] | | | [place] [address] | + + + | Home Phone [...] Team Providers + +------+ + | Care Lead Refinery Supervisor Name | Role | Phone | [...] | | Rectal | Frank, | [address] | | | | | cancer (HCC) | Wing | [place], | | | | | Procedures | MD Casimiro | [place] [address] | | | | | CT Chest | [address] | Phone: | | | | | Abdomen | [place] | [phone] | | | | | Pelvis w | [place], [place] | Fax: | | | | | Contrast | [address] | [phone] | | | | | | Phone: | | | | | | | [phone] | | | | | | | Fax: | | | | | | | [phone] | | +--------+--------+ + + + + [...] ST [place] | | | | | [place] OFFICE | [address] | [place] | | | | | OUTPATIENT | Phone: | [address] Phone: | | | | | VISIT 25 | [phone] | [phone] | | | | | MINUTES | Fax: | Fax: | | | | | | [phone] | [phone] | +--------+--------+ + + + + Encounter Details +--------+ + + + + | Date | Type | Department | Care Team | Description | +--------+ + + + + | 10/16/ | Hospital | [facility] | Wing Frank | Rectal cancer (HCC) | | 2018 | Encounter | MED CTR MEDICAL | MD Casimiro [address] | (Primary Dx) | | | | ONCOLOGY CLINIC 401 | [facility] | | | | | [address] [place] | [place] [address] | | | | | [place] [address] | [phone] | | | | | [phone] | | | +--------+ + + + [...] of this encounter Progress Notes Jen Doherty, HIDE PULLER - 10/16/2017 4:30 PM PSTREVIEW OF SYSTEMS [...] the origi nal. Hem-Onc Progress Note [facility] Pt. Name/Age/: Fang Stephenson 52 y.o. 1965 Med. Record Number: [id number] Date of admission: 10/16/2017 Assessment and plan: 1. 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 Ronaldo Hess, [facility] , Nov, 2014 with no histologically [...] an aggravating effect. Patient's work as a [employer] may also be contributing. Patient may ultimately require wrist splints as a means of management. Subjective: The patient chart and medications were reviewed in detail and the patient was seen and exam ined. Fang Stephenson is a 52 y.o. female returns today for follow-up and monitor and storage bin tender ing a now three-year remission of rectal [...] Electronically signed by: Wing Frank, 10/16/2017 16:22 [facility] TIME SPENT 20 MIN. > 50% AT BEDSIDE, WITH FAMILY/PATIENT IN CARE AND YARN REWINDER ON UNIT AND CO ORDINATION OF CARE Portions of this chart may have been created with Project Dance voice recognition software. Occasi onal wrong-word or [...] + | [facility] | [address] | [place] | [phone] | | [facility] | | [address] | | | - LABORATORY | | [...] [address] | [place] | [phone] | | [facility] | | [address] | | | - LABORATORY | | [...] + | [facility] | [address] | [place] | [phone] | | [facility] | | [address] | | | - LABORATORY | | [...] mL/min/1.73m2 | [facility] | | | STATELESS | RATE,ESTIMATED | | MEDICAL | | | | mL/min/1.40j6Pqgy than | | CENTER - | | [...] | 9.7 | 8.3 - 10.5 | [facility] | | | | | mg/dL | [facility] | | | | | | MEDICAL | | | | | | CENTER - | | | | | | LABORATORY | | + + + + + + | Albumin | 4.3 | 3.2 - 5.0 g/dL | [facility] | | | | | | [facility] | | | | | [...] [address] | [place] | [phone] | | [facility] | | [address] | | | - LABORATORY | | [...] | [address] | [place] | [phone] | | [facility] | | [address] | | | - LABORATORY | | | | + + + + + documented in this encounter Visit Diagnoses + + | Diagnosis | + + | Rectal cancer (HCC) - Primary Malignant neoplasm of rectum | + + documented in this encounter"
--- OUTSIDE RECORDS SUMMARY | ~2020-02-23 | XMS | Encounter Summary ---
Demographics + + + | Address | [address] [facility] | | | [place] [address] | + + + | Home Phone [...] Team Providers + +------+ + | Care Admitting Coordinator Name | Role | Phone | + +------+ + | Kera Hernandez PA-C | PCP | | + +------+ + Encounter Details +--------+ + + + + | Date | Type | Department | Care Team | Description | +--------+ + + + + | 12/04/ | Hospital | [facility] | Wing Frank | Rectal cancer (HCC) | | 2017 | Encounter | MED CTR CHEMO | MD Casimiro [address] | | | | | SW[address] | [address] [place] | | | | | [place], | [place] [address] | | | | | [place] [address] | [phone] | | | | | [phone] | | | +--------+ + + + [...]
--- OUTSIDE RECORDS SUMMARY | ~2020-02-23 | XMS | Encounter Summary ---
Demographics + + + | Address | [address] [facility] | | | [place] [address] | + + + | Home Phone [...] Team Providers + +------+ + | Care Preparing Box Tender Name | Role | Phone | + +------+ + | Kera Hernandez PA-C | PCP | | + +------+ + Encounter Details +--------+ + + + + | Date | Type | Department | Care Team | Description | +--------+ + + + + | 05/08/ | Orders Only | [facility] | Provider, | | | 2019 | | SYSTEM GENERIC OP | MD Milton Morocho | | | | | CONVERSION [address] | [place] | | | | | [address] [place], [place] | [place] [address] | | | | | [address] | | | | | | [phone] | | | +--------+ + + + [...]
--- OUTSIDE RECORDS SUMMARY | ~2020-02-23 | XMS | Encounter Summary ---
Demographics + + + | Address | [address] [facility] | | | [place] [address] | + + + | Home Phone [...] Team Providers + +------+ + | Care Hogshead Salvage Name | Role | Phone | + [...] | Visit | CLINIC [address] | INTERNET CONSULTANT [address] | (Primary Dx); | | | | Street [place], | [place], [place] | Attention to | | | | [place] [address] | [address] | ileostomy (HCC); | | | | [phone] | | Fitting and | | | [...] erting loop ileostomy on November 23 in [place]. She states that from the very beginning, postoperatively, there has been a problem with maintaining a good appliance seal that has re sulted in problems with leakage and skin irritation. Prior to discharge the ostomy nurse at the [facility] had her using a 4 x [...]
--- OUTSIDE RECORDS SUMMARY | ~2020-02-23 | XMS | Encounter Summary ---
Demographics + + + | Address | [address] [facility] | | | [place] [address] | + + + | Home Phone [...] Team Providers + +------+ + | Care Payroll And Benefits Coordinator Name | Role | Phone | [...] + | 01/31/ | Documentati | [facility] | [place]on Daniels, | Psychosocial Support | | 2014 | on | MED CTR MEDICAL | MANAGER OF DRILLING | | | | | ONCOLOGY CLINIC [address] | | | | | | [address] | | | | | | [place] [address] | | | | | | [phone] | | | +--------+ + + + [...] cancer. She is single and lives in [facility] her brother. 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 She also has [employer]. Fang presents as alert and [...] leaking - finally she was sent to [facility] where she spent 5 days and it has been resolved. She is anxious to have the surgery to have the stoma taken d own. She reports an adequate support system, good coping skills, and strong timothy - she is a member of the [employer]. This social science teacher allowed for expression of feeling and provided supportive counseling and information regarding the emotional aspects of a cancer d iagnosis and treatment. Provided Fang with the booklet, "Understanding Chemotherapy". Al so encouraged Fang to access support from this social science teacher and apprised her of our suppo rt groups. This social science teacher is available to provide emotional support and additional comm unity resource information and referral as needed. Fang is aware of support services and h ow to access them. SAUSAGE CANNER will follow up at appointments and by phone as needed.Electronicrhonda y signed by PAULIE Watkins at 01/31/2015 6:25 PM PDTdocumented in this encounter Plan of Treatment Not on filedocumented as of this encounter Visit Diagnoses Not on filedocumented in this encounter
--- OUTSIDE RECORDS SUMMARY | ~2020-02-23 | XMS | Encounter Summary ---
Demographics + + + | Address | [address] [facility] | | | [place] [address] | + + + | Home Phone | | + + + | Preferred Language | Unknown | + + + | Marital Status | Single | + + + | Judaism Affiliation | 1041 | + + + | Race | Unknown | + + + | Ethnic Group | Unknown | + + + Author + + + | Author | [facility] | | | and [place] | + + + | Organization | [facility] | | [...] Team Providers + +------+ + | Care Button Bradder Name | Role | Phone | + [...] | ONCOLOGY [address] | [place], [place] | | | | | [place], | [address] | | | | | [place] [address] | | | | | | [phone] | | | +--------+ + + + [...] + | [facility] | [address] | [place] | [phone] | | [facility] | | [address] | | | - LABORATORY | | | | + + + + + | [facility] | [address] | [place] | | | [facility] | | [address], [facility] | | | - [...] | mL/min/1.73m2 | [facility] | | | PALESTINIAN | RATE,ESTIMATED | | MEDICAL | | | | mL/min/1.45w5Jkdp than | | CENTER - | | [...] + | [facility] | [address] | [place], [place] | [phone] | | [facility] | | [address] | | | - LABORATORY | | | | + + + + + | [facility] | [address] | [place], [place] | | | [facility] | | [address] | | | - [...] [address] | [place] | [phone] | | [facility] | | [address] | | | - LABORATORY | | | | + + + + + | [facility] | [address] | [place], [place] | | | [facility] | | [address], [facility] | | | - LABORATORY | | | | + + + + + documented in this encounter Visit Diagnoses + + | Diagnosis | + + | Rectal cancer (HCC) - Primary Malignant neoplasm of rectum | + + documented in this encounter"
--- OUTSIDE RECORDS SUMMARY | ~2020-02-23 | XMS | Encounter Summary ---
Demographics + + + | Address | [address] [facility] | | | [place] [address] | + + + | Home Phone [...] Team Providers + +------+ + | Care Reinstatement Clerk Name | Role | Phone | [...] + + + + | 08/10/ | Telephone | [facility] | Maria G Cee, | Medication | | 2013 | | MED CTR MEDICAL | RN | Management | | | | ONCOLOGY CLINIC [address] | | | | | | [address] | | | | | | [place] [address] | | | | | | [phone] | | | +--------+ + + + [...]
--- OUTSIDE RECORDS SUMMARY | ~2020-02-23 | XMS | Encounter Summary ---
Demographics + + + | Address | [address] [facility] [address] | | | [place] [address] | + + + | Home Phone | | + + + | Preferred Language | Unknown | + + + | Marital Status | Single | + + + | Church Affiliation | 1041 | + + + | Race | Unknown | + + + | Ethnic Group | Unknown | + + + Author + + + | Author | [facility] | | | and [place] | + + + | Organization | [facility] | | | [...] Team Providers + +------+ + | Care Studio Receptionist Name | Role | Phone | + [...] [address] | | | | | [address] | [place] | [facility] | | | | | | [address] | [place], [place] | | | | | | [place], | [address] Phone: | | | | | | [place] | [phone] | | | | | | [address] | Fax: | | | | | | Phone: | [phone] | | | | | | [phone] | | | | | | | Fax: | | | | | | | [phone] | | +--------+--------+ + + + + Encounter Details +--------+ + + + + | Date | Type | Department | Care Team | Description | +--------+ + + + + | 04/14/ | Hospital | [facility] | Wing Frank | Rectal cancer (HCC) | | 2018 | Encounter | MED CTR MEDICAL | MD Casimiro [address] | (Primary Dx) | | | | ONCOLOGY CLINIC 401 | [facility] | | | | | [address] [place] | [place] [address] | | | | | [place] [address] | [phone] | | | | | [phone] | | | +--------+ + + + [...] erent from the original. Hem-Onc Progress Note [facility] Pt. Name/Age/: Fang Stephenson 52 y.o. 1965 Med. Record Number: [id number] Date of admission: 04/14/2018 Assessment and plan: 1. 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 Ronaldo Hess, [facility] , Nov, 2014 with no histologically identifiable [...] Electronically signed by: Wing Frank, 04/14/2018 14:58 [facility] TIME SPENT 25 MIN. > 50% AT BEDSIDE, WITH FAMILY/PATIENT IN CARE AND TRACK HOE OPERATOR ON UNIT AND CO ORDINATION OF CARE Portions of this chart may have been created with IguanaFix voice recognition software. Occasi onal wrong-word or [...]
--- OUTSIDE RECORDS SUMMARY | ~2020-02-23 | XMS | Encounter Summary ---
Demographics + + + | Address | [address] [facility] [address] | | | [place] [address] | + + + | Home Phone | | + + + | Preferred Language | Unknown | + + + | Marital Status | Single | + + + | Mandaen Affiliation | 1041 | + + + | Race | Unknown | + + + | Ethnic Group | Unknown | + + + Author + + + | Author | [facility] | | | and [place] | + + + | Organization | [facility] | | | [...] Team Providers + +------+ + | Care Applications Systems Engineer Name | Role | Phone | + +------+ + | Cindy Miramontes MD | PCP | | + +------+ + Encounter Details +--------+ + + + + | Date | Type | Department | Care Team | Description | +--------+ + + + + | 02/07/ | Documentati | [facility] | Dayna Guy | | | 2014 | on | MED CNT ONCOLOGY | A, OT | | | | | THERAPY [address] | | | | | | [place], | | | | | | [place] [address] | | | | | | [phone] | | | +--------+ + + + [...] Guy, OT - 02/07/2015 10:58 [facility] OP [address] [place] [address] Oncology Rehab Screening Date: 02/07/2015 Patient Information [...] levels during treatment. 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 Also discussed benefit of increasing activity level, [...]
--- OUTSIDE RECORDS SUMMARY | ~2020-02-23 | XMS | Encounter Summary ---
Demographics + + + | Address | [address] [facility] | | | [place] [address] | + + + | Home Phone [...] Team Providers + +------+ + | Care Container Crane Operator Name | Role | Phone | [...] | | [address] [place] | [place] [address] | | | | | [place] [address] | | | | | | [phone] | | | +--------+ + + + [...]
--- OUTSIDE RECORDS SUMMARY | ~2020-02-23 | XMS | Encounter Summary ---
Demographics + + + | Address | [address] [facility] [address] | | | [place] [address] | + + + | Home Phone [...] Team Providers + +------+ + | Care Packing Machine Operator Name | Role | Phone [...] [place] | | | | | [address] [place] | [place] [address] | | | | | [place] [address] | [phone] | | | | | [phone] | | | +--------+ + + + [...]
--- OUTSIDE RECORDS SUMMARY | ~2020-02-23 | XMS | Encounter Summary ---
Demographics + + + | Address | [address] [facility] | | | [place] [address] | + + + | Home Phone [...] Providers + +------+ + | Care Sap Manager Name | Role | Phone | + +------+ + | Kera Hernandez PA-C | PCP | | + +------+ + Encounter Details +--------+ + + + + | Date | Type | Department | Care Team | Description | +--------+ + + + + | 12/08/ | Hospital | [facility] | Ramirez Mattson, | Breast nodule | | 2019 | Encounter | MED CTR MAMMOGRAPHY | [address] | | | | | [address] | [place] | | | | | [place], [place] | [place], [place] [address] | | | | | [address] | [phone] | | | | | [phone] | | | | | | | Rad, [facility] | | +--------+ + + + + [...] + +--------+ + + + | T[facility] TOMOSYN | Routin | 12/08/2018 | Breast nodule | Results for this | | DIAGNOSTIC RIGHT | e | 1:13 PM | | procedure are in the | | | | PST | | results section. | + +--------+ + + + documented in this encounter Results [facility] Tomosynthesis Diagnostic Right (12/08/2018 1:13 PM PST) + + | Specimen | + + | | + + + + + | Narrative | Performed At | + + + | EXAM: [facility] TOMOSYN DIAGNOSTIC RIGHT dated 12/08/2018 12:57 PM | [facility] | | HISTORY: Diagnostic breast imaging. RT BRST NODULE TECHNIQUE: | | | Right breast CC, MLO, and ML with gregoria synthesis. COMPARISON: | | | Mammograms dating back to 2010. MAMMOGRAM: Scattered | | | fibroglandular densities are present throughout the right breast. | | | On the repeat right cc view the nipple is now in profile. The | | | questioned nodule in the retroareolar soft tissues is no longer | | | present. There is no identified nodular abnormality on the MLO or | | | ML views. There are no distinct masses. No architectural | | | distortion. There are stable microcalcifications. IMPRESSION - | | | BI-RADS CATEGORY 2: BENIGN FINDINGS. The finding represented | | | summation artifact upon further diagnostic evaluation. | | | RECOMMENDATION: Return to normal screening intervals. I discussed | | | the findings and recommendations with the patient following | | | completion of exam. Dictated and Signed by: Wing Monterroso MD | | | Electronically signed: 12/08/2018 2:20 PM | | + + + + + | Procedure Note | + + | Gianni, Rad Results In - 12/08/2018 2:23 PM PST EXAM: [facility] TOMOSYN DIAGNOSTIC RIGHT | | dated 12/08/2018 12:57 PMHISTORY: Diagnostic breast imaging. RT BRST NODULETECHNIQUE: | | Right breast CC, MLO, and ML with gregoria synthesis.COMPARISON: Mammograms dating back to | | 2010.MAMMOGRAM: Scattered fibroglandular densities are present throughout the | | rightbreast. On the repeat right cc view the nipple is now in profile. Thequestioned | | nodule in the retroareolar soft tissues is no longer present. Thereis no identified | | nodular abnormality on the MLO or ML views. There are nodistinct masses. No | | architectural distortion. There are stablemicrocalcifications.IMPRESSION -BI-RADS | | CATEGORY 2: BENIGN FINDINGS. The finding represented summation artifactupon further | | diagnostic evaluation.RECOMMENDATION: Return to normal screening intervals. I discussed | | the findingsand recommendations with the patient following completion of exam.Dictated | | and Signed by: Wing Monterroso MD Electronically signed: 12/08/2018 2:20 PM | |distinct masses. No architectural distortion. There are stable | |microcalcifications. | | | |IMPRESSION - | | | |BI-RADS CATEGORY 2: BENIGN FINDINGS. The finding represented summation artifact | |upon further diagnostic evaluation. | | | |RECOMMENDATION: Return to normal screening intervals. I discussed the findings | |and recommendations with the patient following completion of exam. | | | |Dictated and Signed by: Wing Monterroso MD | | Electronically signed: 12/08/2018 2:20 PM | + + + +---------+ + [...]
--- OUTSIDE RECORDS SUMMARY | ~2020-02-23 | XMS | Encounter Summary ---
Demographics + + + | Address | [address] [facility] | | | [place] [address] | + + + | Home Phone | | + + + | Preferred Language | Unknown | + + + | Marital Status | Single | + + + | Quaker Affiliation | 1041 | + + + | Race | Unknown | + + + | Ethnic Group | Unknown | + + + Author + + + | Author | [facility] | | | and [place] | + + + | Organization | [facility] | | | [...] Providers + +------+ + | Care Director Medicaid Name | Role | Phone | + [...] ST [place] | | | | | [address], | [place] [address] | | | | | [place] [address] | [phone] | | | | | [phone] | | | +--------+ + + + [...]
--- OUTSIDE RECORDS SUMMARY | ~2020-02-23 | XMS | Encounter Summary ---
Demographics + + + | Address | [address] [facility] | | | [place] [address] | + + + | Home Phone [...] Team Providers + +------+ + | Care Clinical Unit Coordinator Name | Role | Phone | [...] | | ONCOLOGY [address] | [facility] [place] | | | | | [place], | [address] | | | | | [place] [address] | | | | | | [phone] | | | +--------+ + + + [...] - 1.030 | [facility] | | | [place], | | | [facility] | | [...] + | [facility] | [address] | [place] | [phone] | | [facility] | | [address] | | | - LABORATORY | | | | + + + + + | [facility] | [address] | [place] | | | [facility] | | [address] | | | - LABORATORY | | | | + + + + + documented in this encounter Visit Diagnoses + + | Diagnosis | + + | Dysuria - Primary | + + documented in this encounter"
--- OUTSIDE RECORDS SUMMARY | ~2020-02-23 | XMS | Encounter Summary ---
Demographics + + + | Address | [address] [facility] | | | [place] [address] | + + + | Home Phone [...] Team Providers + +------+ + | Care Mail Handler Name | Role | Phone | + [...] | neoplasm of | Wing | [address] [place] | | | | | rectum (HCC) | Casimiro, MD | [place], | | | | | Procedures | [address] | [place] [address] | | | | | [place] | [place] | Phone: | | | | | CAPECITABINE | [place], [place] | [phone] | | | | | , [place], [address] | [address] | Fax: | | | | | [place] | Phone: | [phone] | | | | | [place] | [phone] | | | | | | [place] | Fax: | | | | | | [place] | [phone] | | | | | | DEXAMETHASON [...] + + | 04/04/ | Hospital | [facility] | Wing Frank | Rectal cancer (HCC) | | 2014 | Encounter | MED CTR CHEMO | MD Casimiro [address] | | | | | INFUSION [address] [place] | | | | | [place], | [place] [address] | | | | | [place] [address] | [phone] | | | | | [phone] | | | +--------+ + + + [...]
--- OUTSIDE RECORDS SUMMARY | ~2020-02-23 | XMS | Encounter Summary ---
Demographics + + + | Address | [address] [facility] | | | [place] [address] | + + + | Home Phone [...] + + + | Author | [facility] | | | and [place] | + + + | Organization | [facility] | | | and [...] Team Providers + +------+ + | Care Deck Molder Name | Role | Phone | + [...] | | | | Procedures | [place], [place] | [place] | | | | | [place] OFFICE | [address] | [facility] [place] | | | | | OUTPATIENT | Phone: | [address] Phone: | | | | | VISIT 25 | [phone] | [phone] | | | | | MINUTES | Fax: | Fax: | | | | | | [phone] | [phone] | +--------+--------+ + + + + Encounter Details +--------+ + + + + | Date | Type | Department | Care Team | Description | +--------+ + + + + | 09/13/ | Hospital | [facility] | Wing Frank | Rectal cancer (HCC) | | 2013 | Encounter | MED CTR MEDICAL | MD Casimiro [address] | (Primary Dx) | | | | ONCOLOGY CLINIC [address] | [address] [place] | | | | | [address] [place] | [place] [address] | | | | | [place] [address] | [phone] | | | | | [phone] | | | +--------+ + + + [...] + | [facility] | [address] | [place] | [phone] | | [facility] | | [address] | | | - LABORATORY | | | | + + + + + | [facility] | [address] | [place], [place] | | | [facility] | | [address], [facility] | | | - LABORATORY | | | | + + + + + documented in this encounter Visit Diagnoses + + | Diagnosis | + + | Rectal cancer (HCC) - Primary Malignant neoplasm of rectum | + + documented in this encounter"
--- OUTSIDE RECORDS SUMMARY | ~2020-02-23 | XMS | Encounter Summary ---
Demographics + + + | Address | [address] [facility] [address] | | | [place] [address] | + + + | Home Phone | | + + + | Preferred Language | Unknown | + + + | Marital Status | Single | + + + | Adventism Affiliation | [id number] | + + + [...] Team Providers + +------+ + | Care Net Software Engineer Name | Role | Phone | [...] | | | | | | [place] [address] | | | | | | [phone] | | | +--------+ + + + [...]
--- OUTSIDE RECORDS SUMMARY | ~2020-02-23 | XMS | Encounter Summary ---
Demographics + + + | Address | [address] [facility] | | | [place] [address] | + + + | Home Phone [...] Team Providers + +------+ + | Care Lump Machine Operator Name | Role | Phone [...] | | Rectal | Frank, | [address] | | | | | cancer (HCC) | Wing | [place], | | | | | Procedures | MD Casimiro | [place] [address] | | | | | CT Chest | [address] | Phone: | | | | | Abdomen | [place] | [phone] | | | | | Pelvis w | [place], [place] | Fax: | | | | | Contrast | [address] | [phone] | | | | | | Phone: | | | | | | | [phone] | | | | | | | Fax: | | | | | | | [phone] | | +--------+--------+ + + + + [...] [address] | | | | | NE OFFICE | [place] | [place] | | | | | OUTPATIENT | [address] | [place], [place] | | | | | VISIT 25 | SOCIAL CIRCLE, | [address] Phone: | | | | | MINUTES | [place] | [phone] | | | | | | [address] | Fax: | | | | | | Phone: | [phone] | | | | | | [phone] | | | | | | | Fax: | | | | | | | [phone] | | +--------+--------+ + + + + Encounter Details +--------+ + + + + | Date | Type | Department | Care Team | Description | +--------+ + + + + | 10/21/ | Hospital | [facility] | Wing Frank | Rectal cancer (HCC) | | 2019 | Encounter | MED CTR MEDICAL | MD Casimiro [address] | (Primary Dx) | | | | ONCOLOGY CLINIC 401 | [address] | | | | | [address] | [place] [address] | | | | | [place] [address] | [phone] | | | | | [phone] | | | +--------+ + + + [...] from the origi nal. Hem-Onc Progress Note [facility] Pt. Name/Age/: Fang Stephenson 53 y.o. 1965 Med. Record Number: [id number] Date of admission: 10/21/2018 Assessment and plan: [...] y.o. female returns today for follow-up and personnel monitor ing of a remission of rectal [...] Electronically signed by: Wing Frank, 10/21/2018 14:41 [facility] TIME SPENT 20 MIN. > 50% AT BEDSIDE, WITH FAMILY/PATIENT IN CARE AND MEDICAL ASSISTANT OB GYN ON UNIT AND CO ORDINATION OF CARE Portions of this chart may have been created with [employer] voice recognition software. Occasi onal wrong-word or [...] | 0.71 | 0.60 - 1.30 | [facility] | | | | | mg/dL [...] mL/min/1.73m2 | [facility] | | | [facility] | RATE,ESTIMATED | | MEDICAL | | | | mL/min/1.29c6Xorx than | | CENTER - | | [...] [address] | [place] | [phone] | | [facility] | | [address] | | | - LABORATORY | | [...] [address] | [place] | [phone] | | [facility] | | [address] | | | - LABORATORY | | [...] + | [facility] | [address] | [place] | [phone] | | [facility] | | [address] | | | - LABORATORY | | [...] + | [facility] | [address] | [place], [place] | [phone] | | [facility] | | [address] | | | - LABORATORY | | [...] ST. | [address] | [place] | [phone] | | [facility] | | [address] | | | - LABORATORY | | | | + + + + + documented in this encounter Visit Diagnoses + + | Diagnosis | + + | Rectal cancer (HCC) - Primary Malignant neoplasm of rectum | + + documented in this encounter"
--- OUTSIDE RECORDS SUMMARY | ~2020-02-23 | XMS | Encounter Summary ---
Demographics + + + | Address | [address] [facility] | | | [place] [address] | + + + | Home Phone [...] Providers + +------+ + | Care Hogshead Hooper Name | Role | Phone | + [...] [place] | | | | | [address] [place] | [place] [address] | | | | | [place] [address] | [phone] | | | | | [phone] | | | +--------+ + + + [...]
--- OUTSIDE RECORDS SUMMARY | ~2020-02-23 | XMS | Encounter Summary ---
Demographics + + + | Address | [address] [facility] | | | [place] [address] | + + + | Home Phone | | + + + | Preferred Language | Unknown | + + + | Marital Status | Single | + + + | Baptism Affiliation | [id number] | + + + [...] Team Providers + +------+ + | Care Metal Sprayer Name | Role | Phone [...] | | | | Procedures | [place], [place] | [place] | | | | | [place] OFFICE | [address] | [facility] [place] | | | | | OUTPATIENT | Phone: | [address] Phone: | | | | | VISIT 25 | [phone] | [phone] | | | | | MINUTES | Fax: | Fax: | | | | | | [phone] | [phone] | +--------+--------+ + + + + Encounter Details +--------+ + + + + | Date | Type | Department | Care Team | Description | +--------+ + + + + | 09/20/ | Hospital | [facility] | Wing Frank | Rectal cancer (HCC) | | 2014 | Encounter | MED CTR MEDICAL | MD Casimiro [address] | (Primary Dx) | | | | ONCOLOGY CLINIC [address] | [address] [place] | | | | | [address] [place] | [place] [address] | | | | | [place] [address] | [phone] | | | | | [phone] | | | +--------+ + + + [...] + | [facility] | [address] | [place], [place] | [phone] | | [facility] | | [address] | | | - LABORATORY | | | | + + + + + | [facility] | [address] | [place], [place] | | | [facility] | | [address] | | | - LABORATORY | | | | + + + + + documented in this encounter Visit Diagnoses + + | Diagnosis | + + | Rectal cancer (HCC) - Primary Malignant neoplasm of rectum | + + documented in this encounter"
--- OUTSIDE RECORDS SUMMARY | ~2020-02-23 | XMS | Encounter Summary ---
Demographics + + + | Address | [address] [facility] | | | [place] [address] | + + + | Home Phone [...] Team Providers + +------+ + | Care Risk And Insurance Manager Name | Role | Phone | [...] | | | | [place] OFFICE | [address] | [place] | | | | | OUTPATIENT | Phone: | [address] Phone: | | | | | VISIT 25 | [phone] | [phone] | | | | | MINUTES | Fax: | Fax: | | | | | | [phone] | [phone] | +--------+--------+ + + + + Encounter Details +--------+ + + + + | Date | Type | Department | Care Team | Description | +--------+ + + + + | 12/29/ | Hospital | [facility] | Wing Frank | Rectal cancer (HCC) | | 2015 | Encounter | MED CTR MEDICAL | MD Casimiro [address] | | | | | ONCOLOGY CLINIC [address] | [address] [place] | | | | | [address] [place] | [place] [address] | | | | | [place] [address] | [phone] | | | | | [phone] | | | +--------+ + + + [...] + | [facility] | [address] | [place] | [phone] | | [facility] | | [address] | | | - LABORATORY | | | | + + + + + | [facility] | [address] | [place], [place] | | | [facility] | | [id number] [place] [address] | | | - LABORATORY | | | | + + + + + documented in this encounter Visit Diagnoses + + | Diagnosis | + + | Rectal cancer (HCC) Malignant neoplasm of rectum | + + documented in this encounter"
--- OUTSIDE RECORDS SUMMARY | ~2020-02-23 | XMS | Encounter Summary ---
Demographics + + + | Address | [address] [facility] | | | [place] [address] | + + + | Home Phone [...] Providers + +------+ + | Care Rn Charge Name | Role | Phone | + [...] + + + | Closed | | | Diagnoses | | OP ST | | | | | Rectal | Monika | ERIK | | | | | cancer (HCC) | Wing | [facility] | | | | | Procedures | MD Casimiro | [address] | | | | | TERRY | [address] | AVE | | | | | Digital | [place] | [place] | | | | | Diagnostic | [place] | [address] | | | | | Bilateral | [address] | Phone: | | | | | | Phone: | [phone] | | | | | | [phone] | Fax: | | | | | | Fax: | [phone] | | | | | | [phone] | | +--------+--------+ + + + + [...] [place] | | | | | [place] OFFICE | [address] | [place] | | | | | OUTPATIENT | Phone: | [address] Phone: | | | | | VISIT 25 | [phone] | [phone] | | | | | MINUTES | Fax: | Fax: | | | | | | [phone] | [phone] | +--------+--------+ + + + + Encounter Details +--------+ + + + + | Date | Type | Department | Care Team | Description | +--------+ + + + + | 10/03/ | Hospital | [facility] | Wing Frank | Rectal cancer (HCC) | | 2015 | Encounter | MED CTR MEDICAL | MD Casimiro [address] | (Primary Dx) | | | | ONCOLOGY CLINIC 401 | [facility] | | | | | [address] | [place] [address] | | | | | [place] [address] | [phone] | | | | | [phone] | | | +--------+ + + + [...] + + + | Blood Pressure | 110/74 | 10/03/2015 1:16 PM | | | | | PST | | + + + + + | Pulse | 81 | 10/03/2015 1:16 PM | | | | | PST | | + + + + + | Temperature | 37.5 C (99.5 F) | 10/03/2015 1:16 PM | | | | | PST | | + + + + + | Respiratory Rate | 16 | 10/03/2015 1:16 PM | | | | | PST | | + + + + + | Oxygen Saturation | 98% | 10/03/2015 1:16 PM | | | | | PST | | + + + + + | Inhaled Oxygen | - | - | | | Concentration | | | | + + + + + | Weight | 94.5 kg (208 lb 5.4 | 10/03/2015 1:16 PM | | | | oz) | PST | | + + + + + | Height | - | - | | + + + + + | Body Mass Index | 34.29 | 01/31/2015 11:35 AM | | | [...] + + + +---------+ + + | DICLOFENAC PO | Take by [...] encounter Progress Notes Wing Frank MD - 10/03/2015 1:23 PM PSTFormatting of this note might be diff erent from the original. Hem-Onc Progress Note [facility] Pt. Name/Age/: Fang Stephenson 50 y.o. 1965 Med. Record Number: [id number] Date of admission: 10/03/2015 Assessment and plan: 1. 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 Ronaldo Hess, [facility] , Nov, 2014 with no histologically identifiable residual disease, Thus ypT0,N0 (0/7), M0 S/p 4 cycles post-surgical adjuvant CapOx chemotherapy: January-March, Discussion today first with regard to central breast pain with negative physical findings. We're going to go ahead with diagnostic mammography. Patient has had her mammograms in the past through [facility]. We discussed the possibility that pain may be in some way related to recent surgery. If mammography is negative then we have asked patient retur n for short-term follow-up in approximately 8-12 weeks for repeat exam. The same time recommendation for continued surveillance following treatment of her earlier rectal carcinoma now one year previously. This will continue on a quarterly basis. Subjective: The patient chart and medications were reviewed in detail and the patient was seen and exam ined. Fang Stephenson is a 50 y.o. female returns today for follow-up and monitoring of her re mission of rectal carcinoma. Patient returns after having just undergone ventral hernia repair 2 weeks earlier. That krueger rgery seems to be helping in terms of patient's overall sense of integrity of the GI tract. She does report that for about the same period of time she's noticed central left breast pa in. Pain comes and goes, has a sharp nature to it and can be severe enough that patient thi nks about going to the emergency room. This discomfort is not all the time. She recalls zackery love had a mammogram 2 years earlier but none this past year. PSH: Reviewed, no changes to admission H&P. Review of Systems: Constitutional: Pt reports feeling very fatigued these last few days. Denies high fevers, s haking chills, anorexia, nausea, vomiting, weight loss. Appetite without changes. Pt reports shaking chills for about a week. Pt reports last night she had a night sweat-states it's 64 degrees in her house. Ear, Nose, Mouth, Throat: Denies odynophagia, dysphagia, or tinnitus. Cardiovascular: Denies shortness of breath, dyspnea on exertion, chest pain, palpitations o r orthopnea. Respiratory: Denies cough, hemoptysis, or sputum production. Gastrointestinal: Denies abdominal pain, constipation, diarrhea, melena, or bright red bloo d per rectum. Genitourinary: Denies hematuria or dysuria. Musculoskeletal: Denies joint pain or tenderness. Neurologic: Denies visual changes. Pt reports diabetic neuropathy. Pt reports a headache to day. Endocrine: Denies heat/cold intolerance. Pt reports left leg swelling. Hematologic: Denies spontaneous bruising or bleeding. Integumentary: Denies rash, wounds or other skin concerns. Pain: Denies pain. Review of systems as above otherwise negative Scheduled Medications: Continuous Infusions: PRN Meds:. Allergy: Allergies Allergen Reactions Latex Redness and irritation during chemotherapy Objectives: Temp: 37.5 C (99.5 F) BP: 110/74 mmHg Pulse: 81 Resp: 16 SpO2: 98 % on Min/Max Temp past 24 hours:Temp Av.5 C (99.5 F) Min: 37.5 C (99.5 F) Max: 3 7.5 C (99.5 F) No intake or output data in the 24 hours ending 10/03/15 1323 Wt. Admission: Weight: 94.5 kg (208 lb 5.4 oz) Wt. Current: Weight: 94.5 kg (208 lb 5.4 oz) Physical Exam: Exam: General: The patient is alert and oriented. No acute distress. HEENT: PERRL, Oral mucosa intact. Neck is supple. Cardiovascular: Regular rate and rhythm, no murmur. Respiratory: Clear to auscultation and percussion. Breast: Left breast normal to inspection and palpation. Right breast normal to inspection and palpation Abdomen: Freshly healing midline surgical incision. Soft, nontender, no hepatospenomegaly. No palpable masses. Bowel sounds present. Genitourinary: Deferred. Extremities: Nontender, no erythema, no edema. Skin: No rashes, bruising, or petechiae. Lymph: No palpable nodes in the neck, supraclavicular fossa, axilla or groin. Neurological: Cranial nerves are intact. Normal sensory and motor function, No focal defi cits noted. Muscular/Skeletal: No acute bony tenderness. Psychiatric: Normal mood and affect. Diagnostic studies: Complete blood count, automated chemistries and CEA antigen pending at the time of this dic tation Electronically signed by: Wing Frank, 10/03/2015 13:23 [facility] TIME SPENT 25 MIN. > 50% AT BEDSIDE, WITH FAMILY/PATIENT IN CARE AND GUEST SERVICE AGENT ON UNIT AND CO ORDINATION OF CARE Portions of this chart may have been created with [employer] voice recognition software. Occasi onal wrong-word or sound-alike substitutions may have occurred due to the inherent rutherford itations of voice recognition software. Please read the chart carefully and recognize, using context, where these substitutions have occurred. Aaron Vazquez RN - 10/03/2015 1:02 PM PSTREVIEW OF SYSTEMS Constitutional: Pt reports feeling very fatigued these last few days. Denies high fevers, s haking chills, anorexia, nausea, vomiting, weight loss. Appetite without changes. Pt reports shaking chills for about a week. Pt reports last night she had a night sweat-states it's 64 degrees in her house. Ear, Nose, Mouth, Throat: Denies odynophagia, dysphagia, or tinnitus. Cardiovascular: Denies shortness of breath, dyspnea on exertion, chest pain, palpitations o r orthopnea. Respiratory: Denies cough, hemoptysis, or sputum production. Gastrointestinal: Denies abdominal pain, constipation, diarrhea, melena, or bright red bloo d per rectum. Genitourinary: Denies hematuria or dysuria. Musculoskeletal: Denies joint pain or tenderness. Neurologic: Denies visual changes. Pt reports diabetic neuropathy. Pt reports a headache to day. Endocrine: Denies heat/cold intolerance. Pt reports left leg swelling. Hematologic: Denies spontaneous bruising or bleeding. Integumentary: Denies rash, wounds or other skin concerns. Pain: Denies pain. Note: Pt presents today for f/u with labs. Pt is concerned about a sharp pain that occurs under her left breast. She states it started two weeks ago. Pt states she had an umbilical hernia she has surgery on 09/16/[address] Reggie Cerda. My chart:active documented in this en counter Plan of Treatment + +---------+--------+ + + | Name | Type | Priori | Associated Diagnoses | Order Schedule | | | | ty | | | + +---------+--------+ + + | [facility] | Imaging | Routin | Rectal cancer | Expected: | | Diagnostic Bilateral | | e | ([facility]) | 10/03/2015, Expires: | | | | | | 12/04/2016 | + +---------+--------+ + + documented as of this encounter Procedures + +--------+ + + + | Procedure Name | Priori | Date/Time | Associated Diagnosis | Comments | | | ty | | | | + +--------+ + + + | CEA | STAT | 10/03/2015 | Rectal cancer | Results for this | | | | 12:56 PM | (HCC) | procedure are in the | | | | PST | | results section. | + +--------+ + + + | COMPREHENSIVE | STAT | 10/03/2015 | Rectal cancer | Results for this | | METABOLIC PANEL | | 12:56 PM | (HCC) | procedure are in the | | | | PST | | results section. | + +--------+ + + + documented in this encounter Results Comprehensive Metabolic Panel (10/03/2015 12:56 PM PST) [...] [facility] | | | | | | [facility] | | | | | | MEDICAL | | | | | | CENTER - | | | | | | LABORATORY | | + + + + + + | Creatinine | 0.82 | 0.60 - 1.30 | [facility] | | | | | mg/dL | [facility] | | | | | | MEDICAL | | | | | | CENTER - | | | | | | LABORATORY | | + + + + + + | eGFR if not | >60Comment: GLOMERULAR | >=60 | [facility] | | | | FILTRATION | mL/min/1.73m2 | [facility] | | | INDONESIAN | RATE,ESTIMATED | | MEDICAL | | | | mL/min/1.66i4Ppjh than | | CENTER - | | [...] 3.9 | 3.2 - 5.0 g/dL | [facility] [...] | bulin Ratio | | | [facility] | | [...] [address] | [place] | [phone] | | [facility] | | [address] | | | - LABORATORY | | | | + + + + + CEA (10/03/2015 12:56 PM PST) + +-------+ + + + | Component | Value | Ref Range | Performed | Pathologist | | | | | At | Signature | + +-------+ + + + | CEA | 4.3 | 0.0 - 10.0 | [facility] | | | | | ng/mL | [facility] | | | | | [...] + | [facility] | [address] | [place] | [phone] | | [facility] | | [address] | | | - LABORATORY | | | | + + + + + documented in this encounter Visit Diagnoses + + | Diagnosis | + + | Rectal cancer (HCC) - Primary Malignant neoplasm of rectum | + + documented in this encounter"
--- OUTSIDE RECORDS SUMMARY | ~2020-02-23 | XMS | Encounter Summary ---
Demographics + + + | Address | [address] [facility] | | | [place] [address] | + + + | Home Phone [...] Team Providers + +------+ + | Care Food And Beverage Analyst Name | Role | Phone | [...] [place], [place] | | | | | [place], | [address] | | | | | [place] [address] | | | | | | [phone] | | | +--------+ + + + [...]
--- OUTSIDE RECORDS SUMMARY | ~2020-02-23 | XMS | Encounter Summary ---
Demographics + + + | Address | [address] [facility] | | | [place] [address] | + + + | Home Phone [...] Team Providers + +------+ + | Care Art Department Head Name | Role | Phone | [...] | | | | Procedures | [place], [place] | [place] | | | | | [place] OFFICE | [address] | [facility], [place] | | | | | OUTPATIENT | Phone: | [address] Phone: | | | | | VISIT 25 | [phone] | [phone] | | | | | MINUTES | Fax: | Fax: | | | | | | [phone] | [phone] | +--------+--------+ + + + + Encounter Details +--------+ + + + + | Date | Type | Department | Care Team | Description | +--------+ + + + + | 09/03/ | Hospital | [facility] | Wing rFank | Rectal cancer (HCC) | | 2016 | Encounter | [facility] | MD Casimiro [address] | (Primary Dx); Anemia | | | | ONCOLOGY CLINIC [address] | [address] [place] | associated with | | | | [address] [place] | [place] [address] | acute blood loss | | | | [place] [address] | [phone] | | | | | [phone] | | | +--------+ + + + [...] encounter Progress Notes Jen Doherty CMA - 09/03/2016 12:53 PM PSTREVIEW OF SYSTEMS Constitutional: States fatigue. Denies high fevers, shaking chills, anorexia, vomiting, we ight loss, or night sweats. Appetite without changes. Three days of intermittent nausea. Ear, Nose, Mouth, Throat: Denies odynophagia, dysphagia, or tinnitus. Cardiovascular: Denies shortness of breath, dyspnea on exertion, chest pain, palpitations o r orthopnea. Respiratory: Denies cough, hemoptysis, or sputum production. Gastrointestinal: Denies melena, or bright red blood per rectum. Pain in the lower abdomin yesterday was the last time, pt states she just finished her antibiotics for UTI. States floyd th constipation and diarrhea. States having hemorrhoids has to use preparation H at times. Occasional blood in the stool. Genitourinary: Denies hematuria or dysuria. Musculoskeletal: Denies joint pain or tenderness. Neurologic: Denies headache or visual changes. States unchanged numbness/tingling of the ex tremities. Endocrine: Denies peripheral edema or heat/cold intolerance. Swelling and pain in the left wrist, doesn't remember hurting it. Hematologic: Denies spontaneous bruising or bleeding. Integumentary: Denies rash, wounds or other skin concerns. 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 Pain at 5/10 this is with out pain medication. Tolerable pain level: 4-5/10>. Note: Pt is here for 3 month follow up and labs My chart: ing Frank MD - 09/03/2016 12:48 PM PSTFormatting of this note might be different from the origi nal. Hem-Onc Progress Note [facility] Pt. Name/Age/: Fang Stephenson 51 y.o. 1965 Med. Record Number: [id number] Date of admission: 09/03/2016 Assessment and plan: 1. 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 Ronaldo Hess, [facility] , Nov, 2014 with no histologically identifiable residual disease, Thus ypT0,N0 (0/7), M0 S/p 4 cycles post-surgical adjuvant CapOx chemotherapy: January-March, Laboratory review today noting setback in blood counts with decline in hemoglobin into the range of 9 g percent and accompanying considerable worsening in both microcytosis and hypoch romia. These findings together with earlier evidence of still depleted serum iron stores fr om summer consistent with ongoing blood loss. Based on that finding have recommended that patient have follow-up sigmoidoscopy to inspect area of previous anastomosis. It could be however that there are benign etiology for blood loss. For supportive care patient is going to return to the infusion unit to resume a prog seth of iron sucrose infusions begun earlier this January. Continued follow-up monitoring of rectal carcinoma through CEA antigen monitoring with toda y's level pending. Oncology follow-up to continue on a quarterly basis Subjective: The patient chart and medications were reviewed in detail and the patient was seen and exam ined. Fang Stephenson is a 51 y.o. female returns today for follow-up monitoring a remission o f carcinoma of the rectum. Aguiar had been doing well at the time of an earlier visit in May and now 2 years followin g having completed earlier neoadjuvant chemoradiotherapy for primary low lying rectal carcin varinder. In the time since then however patient experiencing new symptoms including onset of a urinary infection and then the development of hematochezia. Patient describes a serge in pa in referable to diarrhea she attributes to the effects of oral antibiotics that she has been taking. Pain exceeds that which she had experienced with the rectal cancer from 2 years ea rlier. She is aware that she is losing considerable blood including some blood clots althou gh it is not entirely clear whether these are from GI or source. PSH: Reviewed, no changes to admission H&P. Review of Systems: Constitutional: States fatigue. Denies high fevers, shaking chills, anorexia, vomiting, najma ght loss, or night sweats. Appetite without changes. Three days of intermittent nausea. Ear, Nose, Mouth, Throat: Denies odynophagia, dysphagia, or tinnitus. Cardiovascular: Denies shortness of breath, dyspnea on exertion, chest pain, palpitations o r orthopnea. Respiratory: Denies cough, hemoptysis, or sputum production. Gastrointestinal: Denies melena, or bright red blood per rectum. Pain in the lower abdomin yesterday was the last time, pt states she just finished her antibiotics for UTI. States bot h constipation and diarrhea. States having hemorrhoids has to use preparation H at times. Oc casional blood in the stool. Genitourinary: Denies hematuria or dysuria. Musculoskeletal: Denies joint pain or tenderness. Neurologic: Denies headache or visual changes. States unchanged numbness/tingling of the ex tremities. Endocrine: Denies peripheral edema or heat/cold intolerance. Swelling and pain in the left wrist, doesn't remember hurting it. Hematologic: Denies spontaneous bruising or bleeding. Integumentary: Denies rash, wounds or other skin concerns. 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 Pain at 5/10 this is with out pain medication. Tolerable pain level: 4-5/10>. Review of systems as above otherwise negative Scheduled Medications: Continuous Infusions: PRN Meds:. Allergy: Allergies Allergen Reactions Gabapentin Other (See Comments) Suicidal thoughts Latex Redness and irritation during chemotherapy Nitrofurantoin Rash Objectives: on Min/Max Temp past 24 hours:No Data Recorded No intake or output data in the 24 hours ending 09/03/16 1248 Wt. Admission: Wt. Current: Physical Exam: Exam: General: Pale but not ill. Psychiatric: Normal mood and affect. Diagnostic studies: Available data and images were reviewed personally. See reports. Significant results and findings are addressed here or in the Assessment and Plan. Recent Labs Lab 09/03/16 1219 WBC 4.7 HGB 9.2* HCT 29.1* PLT 247 Electronically signed by: Wing Frank, 09/03/2016 12:48 [facility] TIME SPENT 25 MIN. > 50% AT BEDSIDE, WITH FAMILY/PATIENT IN CARE AND BEAM RACKER ON UNIT AND CO ORDINATION OF CARE Portions of this chart may have been created with Message [employer] voice recognition software. Occasi onal wrong-word or [...] + | CBC W/AUTO | STAT | 09/03/2016 | Anemia associated | Results for this | | DIFFERENTIAL | | 12:19 PM | with acute blood | procedure are in the | | | | PST | loss | results section. | + +--------+ + + + | IRON AND TRANSFERRIN | STAT | 09/03/2016 | Rectal cancer | Results for this | | | | 12:19 PM | (HCC) | procedure are in the | | | | PST | | results section. | + +--------+ + + + | FERRITIN | STAT | 09/03/2016 | Rectal cancer | Results for this | | | | 12:19 PM | (HCC) | procedure are in the | | | | PST | | results section. | + +--------+ + + + | CEA | STAT | 09/03/2016 | Rectal cancer | Results for this | | | | 12:19 PM | (HCC) | procedure are in the | | | | PST | | results section. | + +--------+ + + + | COMPREHENSIVE | STAT | 09/03/2016 | Rectal cancer | Results for this | | METABOLIC PANEL | | 12:19 PM | (HCC) | procedure are in the | | | | PST | | results section. | + +--------+ + + + documented in this encounter Results CBC w/ Auto Differential (09/03/2016 12:19 PM [...] + | [facility] | [address] | [place] | [phone] | | [facility] | | [address] | | | - LABORATORY | | | | + + + + + Ferritin (09/03/2016 12:19 PM PST) + +-------+ + + + | Component | Value | Ref Range | Performed | Pathologist | | | | | At | Signature | + +-------+ + + + | FERRITIN | 4 (L) | 11-<307 ng/mL | [facility] | [...] [address] | [place] | [phone] | | [facility] | | [address] | | | - LABORATORY | | | | + + + + + Iron and Transferrin (09/03/2016 12:19 PM PST) + +---------+ + + + | Component | Value | Ref Range | Performed | Pathologist | | | | | At | Signature | + +---------+ + + + | Iron | 22 (L) | 40 - 150 ug/dL | [facility] | | | | | | [facility] | | | | | | MEDICAL | | | | | | CENTER - | | | | | | LABORATORY | | + +---------+ + + + | TRANSFERRIN | 267.5 | 240.0 - 480.0 | [facility] | | | | | mg/dL | [facility] | | | | | | MEDICAL | | | | | | CENTER - | | | | | | LABORATORY | | + +---------+ + + + | TIBC | 375 | 235 - 425 ug/dL | [facility] | | | | | | [facility] | | | | | | MEDICAL | | | | | | CENTER - | | | | | | LABORATORY | | + +---------+ + + + | % | 5.9 (L) | 20.0 - 55.0 % | [...] [address] | [place] | [phone] | | [facility] | | [address] | | | - LABORATORY | | | | + + + + + CEA (09/03/2016 12:19 PM PST) + +-------+ + + + [...] ST. | [address] | [place], [place] | [phone] | | [facility] | | [address] | | | - LABORATORY | | | | + + + + + Comprehensive Metabolic Panel (09/03/2016 12:19 PM PST) + + + + + + | Component | Value | Ref Range | Performed | Pathologist | | | | | At | Signature | + + + + + + | Na | 142 | 136 - 149 | [facility] | [...] + + + + | Cl | 112 (H) | 98 - 109 mmol/L | [...] + + + + | Glucose | 175 (H) | 70 - 109 mg/dL | [facility] | | | | | | [facility] | | | | | | MEDICAL | | | | | | CENTER - | | | | | | LABORATORY | | + + + + + + | BUN | 13 | 7 - 18 mg/dL | [facility] | | | | | | [facility] | | | | | | MEDICAL | | | | | | CENTER - | | | | | | LABORATORY | | + + + + + + | Creatinine | 0.84 | 0.60 - 1.30 | [facility] | | | | | mg/dL [...] mL/min/1.73m2 | [facility] | | | [facility] | RATE,ESTIMATED | | MEDICAL | | | | mL/min/1.12r9Idid than | | CENTER - | | [...] + + + + | Bilirubin | 0.2Comment: This is an | 0.1 - 1.5 [...] | | Protein | | | [facility] | | | | | | MEDICAL | | | | | | CENTER - | | | | | | LABORATORY | | + + + + + + | AST | 21Comment: This is an | 10 - 42 [...] + + + + | ALT | 15Comment: This is an | 6 - 45 [...] + + + + | Alkaline | 90Comment: This is an | 40 - 110 [...] + + + + | BUN/Creatin | 15.5 | | [facility] | | | ine [...] [address] | [place] | [phone] | | [facility] | | [address] | | | - LABORATORY | | [...]
--- OUTSIDE RECORDS SUMMARY | ~2020-02-23 | XMS | Encounter Summary ---
Demographics + + + | Address | [address] [facility] [address] | | | [place] [address] | + + + | Home Phone [...] Team Providers + +------+ + | Care Traffic Survey Technician Name | Role | Phone | + +------+ + | Kera Hernandez PA-C | PCP | | + +------+ + Encounter Details +--------+ + + + + | Date | Type | Department | Care Team | Description | +--------+ + + + + | 12/08/ | Hospital | [facility] | Ramirez Mattson, | Breast nodule | | 2019 | Encounter | [facility] | [address] | | | | | [address] | [facility] | | | | | [place], [place] | [place], [place] [address] | | | | | [address] | [phone] | | | | | [phone] | | | | | | | [...] + + documented in this encounter Results [facility] Tomosynthesis Diagnostic Right (12/08/2018 1:13 PM PST) + + | Specimen | + + | | + + + + + | Narrative | Performed At | + + + | EXAM: [facility] TOMOSYN DIAGNOSTIC RIGHT dated 12/08/2018 12:57 PM [...]
--- OUTSIDE RECORDS SUMMARY | ~2020-02-23 | XMS | Encounter Summary ---
Demographics + + + | Address | [address] [facility] | | | [place] [address] | + + + | Home Phone | | + + + | Preferred Language | Unknown | + + + | Marital Status | Single | + + + | Yazidi Affiliation | [id number] | + + + [...] Team Providers + +------+ + | Care Support Staff Name | Role | Phone | + [...] | | Rectal | Frank, | [address] | | | | | cancer (HCC) | Wing | [place], | | | | | Procedures | MD Casimiro | [place] [address] | | | | | CT Chest | [address] | Phone: | | | | | Abdomen | [place] | [phone] | | | | | Pelvis w | [place], [place] | Fax: | | | | | Contrast | [address] | [phone] | | | | | | Phone: | | | | | | | [phone] | | | | | | | Fax: | | | | | | | [phone] | | +--------+--------+ + + + + [...] + + | 01/29/ | Hospital | [facility] | Wing Frank | Rectal cancer (HCC) | | 2019 | Encounter | MED [facility] [address] | MD Casimiro [address] | | | | | [address] [place], | [address] [place] | | | | | [place] [address] | [place] [address] | | | | | [phone] | [phone] | | | | | | | [...]
--- OUTSIDE RECORDS SUMMARY | ~2020-02-23 | XMS | Encounter Summary ---
Demographics + + + | Address | [address] [facility] | | | [place] [address] | + + + | Home Phone [...] Providers + +------+ + | Care Lead Pressman Name | Role | Phone | + [...] | | [address] [place] | [place] [address] | | | | | [place] [address] | | | | | | [phone] | | | +--------+ + + + [...]
--- OUTSIDE RECORDS SUMMARY | ~2020-02-23 | XMS | Encounter Summary ---
Demographics + + + | Address | [address] [facility] | | | [place] [address] | + + + | Home Phone [...] + + + | Author | [facility] | | | and [place] | + + + | Organization | [facility] [...] Providers + +------+ + | Care Machine Shorthand Reporter Name | Role | Phone | + [...] [place] | | | | | [address] [place] | [place] [address] | | | | | [place] [address] | [phone] | | | | | [phone] | | | +--------+ + + + [...]
--- OUTSIDE RECORDS SUMMARY | ~2020-02-23 | XMS | Encounter Summary ---
Demographics + + + | Address | [address] [facility] | | | [place] [address] | + + + | Home Phone [...] Team Providers + +------+ + | Care Dry Transfer Worker Name | Role | Phone | [...] | | | | Procedures | [place], [place] | [place] | | | | | [place] OFFICE | [address] | [facility], [place] | | | | | OUTPATIENT | Phone: | [phone] Phone: | | | | | VISIT 25 | [phone] | [phone] | | | | | MINUTES | Fax: | Fax: | | | | | | [phone] | [phone] | +--------+--------+ + + + + Encounter Details +--------+ + + + + | Date | Type | Department | Care Team | Description | +--------+ + + + + | 09/03/ | Hospital | [facility] | Wing Frank | Rectal cancer (HCC) | | 2016 | Encounter | [facility] | MD Casimiro [address] | (Primary Dx); Anemia | | | | ONCOLOGY CLINIC [address] | [address] [place] | associated with | | | | [address] [place] | [place] [address] | acute blood loss | | | | [place] [address] | [phone] | | | | | [phone] | | | +--------+ + + + [...] from the origi nal. Hem-Onc Progress Note [facility] Pt. Name/Age/: Fang Stephenson 51 y.o. 1965 Med. Record Number: [id number] Date of admission: 09/03/2016 Assessment and plan: 1. 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 Ronaldo Hess, [facility] , Nov, 2014 with no histologically identifiable [...] signed by: Wing Frank, 09/03/2016 12:48 [facility] TIME SPENT 25 MIN. > 50% AT BEDSIDE, WITH FAMILY/PATIENT IN CARE AND CONTENT SPECIALIST ON UNIT AND CO ORDINATION OF CARE Portions of this chart may have been created with Daily[employer] voice recognition software. Occasi onal wrong-word or [...] + | [facility] | [address] | [place] | [phone] | | [facility] | | [address] | | | - LABORATORY | | [...] [address] | [place] | [phone] | | [facility] | | [address] | | | - LABORATORY | | [...] [address] | [place] | [phone] | | [facility] | | [address] | | | - LABORATORY | | [...] ST. | [address] | [place], [place] | [phone] | | [facility] | | [address] | | | - LABORATORY | | [...] | 0.84 | 0.60 - 1.30 | [facility] | | | | | mg/dL [...] mL/min/1.73m2 | [facility] | | | [facility] | RATE,ESTIMATED | | MEDICAL | | | | mL/min/1.47s0Zqud than | | CENTER - | | [...] [address] | [place] | [phone] | | [facility] | | [address] | | | - LABORATORY | | [...]
--- OUTSIDE RECORDS SUMMARY | ~2020-02-23 | XMS | Encounter Summary ---
Demographics + + + | Address | [address] [facility] | | | [place] [address] | + + + | Home Phone | | + + + | Preferred Language | Unknown | + + + | Marital Status | Single | + + + | Spiritism Affiliation | 1041 | + + + [...] Providers + +------+ + | Care Poultry Hatchery Laborer Name | Role | Phone | + [...] | | | | Procedures | [place], [place] | [place] | | | | | [place] OFFICE | [address] | [place], [place] | | | | | OUTPATIENT | Phone: | [phone] Phone: | | | | | VISIT 25 | [phone] | [phone] | | | | | MINUTES | Fax: | Fax: | | | | | | [phone] | [phone] | +--------+--------+ + + + + Encounter Details +--------+ + + + + | Date | Type | Department | Care Team | Description | +--------+ + + + + | 06/04/ | Hospital | [facility] | Wing Frank | Rectal cancer (HCC) | | 2016 | Encounter | [facility] | MD Casimiro [address] | (Primary Dx); Iron | | | | ONCOLOGY CLINIC [address] | [address] [place] | deficiency anemia | | | | [address] [place] | [place] [address] | due to chronic blood | | | | [place] [address] | [phone] | loss; Anemia | | | | [phone] | | associated with | | | [...] erent from the original. Hem-Onc Progress Note [facility] Pt. Name/Age/: Fang Stephenson 51 y.o. 1965 Med. Record Number: [id number] Date of admission: 06/04/2016 Assessment and plan: 1. 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 Ronaldo Hess, [facility] , Nov, 2014 with no histologically identifiable [...] she has been doing on the In [employer]. Patient confesses that she has been using [...] Electronically signed by: Wing Frank, 06/04/2016 10:13 [facility] TIME SPENT 20 MIN. > 50% AT BEDSIDE, WITH FAMILY/PATIENT IN CARE AND MISDRAW HAND ON UNIT AND CO ORDINATION OF CARE Portions of this chart may have been created with [employer] voice recognition software. Occasi onal wrong-word or sound-alike substitutions may have occurred due to the inherent rutherford itations of voice recognition software. Please read the chart carefully and recognize, using context, where these substitutions have occurred. Leah Rodriguez, [facility] - 06/04/2016 10:03 AM PDTREVIEW OF SYSTEMS [...] [address] | [place] | [phone] | | [facility] | | [address] | | | - LABORATORY | | [...] + | [facility] | [address] | [place] | [phone] | | [facility] | | [address] | | | - LABORATORY | | [...] + | [facility] | [address] | [place] | [phone] | | [facility] | | [address] | | | - LABORATORY | | [...] [address] | [place] | [phone] | | [facility] | | [address] | | | - LABORATORY | | [...]
--- OUTSIDE RECORDS SUMMARY | ~2020-02-23 | XMS | Encounter Summary ---
Demographics + + + | Address | [address] [facility] | | | [place] [address] | + + + | Home Phone [...] Team Providers + +------+ + | Care Counselor Camp Name | Role | Phone | + [...] | | cancer (HCC) | Wing | [facility] | | | | | Procedures | MD Casimiro | [address] | | | | | TERRY | [address] | | | | | Digital | [address] [place] | [place] | | | | | Diagnostic | [place] | [address] | | | | | Bilateral | [address] | Phone: | | | | | | Phone: | [phone] | | | | | | [phone] | Fax: | | | | | | Fax: | [phone] | | | | | | [phone] | | +--------+--------+ + + + + [...] | | | | [place] OFFICE | [address] | [place] | | | | | OUTPATIENT | Phone: | [address] Phone: | | | | | VISIT 25 | [phone] | [phone] | | | | | MINUTES | Fax: | Fax: | | | | | | [phone] | [phone] | +--------+--------+ + + + + Encounter Details +--------+ + + + + | Date | Type | Department | Care Team | Description | +--------+ + + + + | 10/03/ | Hospital | [facility] | Wing Frank | Rectal cancer (HCC) | | 2015 | Encounter | [facility] | MD Casimiro [address] | (Primary Dx) | | | | ONCOLOGY CLINIC [address] | [facility] | | | | | [address] | [place] [address] | | | | | [place] [address] | [phone] | | | | | [phone] | | | +--------+ + + + [...] erent from the original. Hem-Onc Progress Note [facility] Pt. Name/Age/: Fang Stephenson 50 y.o. 1965 Med. Record Number: [id number] Date of admission: 10/03/2015 Assessment and plan: 1. 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 Ronaldo Hess, [facility] , Nov, 2014 with no histologically identifiable residual disease, Thus ypT0,N0 (0/7), M0 S/p 4 cycles post-surgical adjuvant CapOx chemotherapy: January-March, Discussion today first with regard to central breast pain with negative physical findings. We're going to go ahead with diagnostic mammography. Patient has had her mammograms in the past through [facility]. We discussed the possibility that pain may [...] Electronically signed by: Wing Frank, 10/03/2015 13:23 [facility] TIME SPENT 25 MIN. > 50% AT BEDSIDE, WITH FAMILY/PATIENT IN CARE AND MACHINE OPERATOR FARMWORKER ON UNIT AND CO ORDINATION OF CARE Portions of this chart may have been created with StayTuned voice recognition software. Occasi onal wrong-word or [...] | Diagnostic Bilateral | | e | ([facility]) | 10/03/2015, Expires: | | | | [...] | 0.82 | 0.60 - 1.30 | [facility] | | | | | mg/dL | [facility] | | | | | | MEDICAL | | | | | | CENTER - | | | | | | LABORATORY | | + + + + + + | eGFR if not | >60Comment: GLOMERULAR | >=60 | GRAY | | | | FILTRATION | mL/min/1.73m2 | [facility] | | | [place] | RATE,ESTIMATED | | MEDICAL | | | | mL/min/1.67n7Tjxs than | | CENTER - | | [...] [address] | [place] | [phone] | | [facility] | | [address] | | | - LABORATORY | | [...] | | | | ng/mL | [facility] | | | | | [...] + | [facility] | [address] | [place] | [phone] | | [facility] | | [address] | | | - LABORATORY | | | | + + + + + documented in this encounter Visit Diagnoses + + | Diagnosis | + + | Rectal cancer (HCC) - Primary Malignant neoplasm of rectum | + + documented in this encounter"
--- OUTSIDE RECORDS SUMMARY | ~2020-02-23 | XMS | Encounter Summary ---
Demographics + + + | Address | [address] [facility] [address] | | | [place] [address] | + + + | Home Phone [...] Team Providers + +------+ + | Care Records Management Specialist Name | Role | Phone | [...] [place] | | | | | [place] OFFICE | [address] | [place] [address] | | | | | OUTPATIENT | Phone: | Phone: | | | | | VISIT 25 | [phone] | [phone] | | | | | MINUTES | Fax: | Fax: | | | | | | [phone] | [phone] | +--------+--------+ + + + + Encounter Details +--------+ + + + + | Date | Type | Department | Care Team | Description | +--------+ + + + + | 12/29/ | Hospital | [facility] | Frida Oquendo | Rectal cancer (HCC) | | 2015 | Encounter | [facility] RAD[facility] | MD Alanis [address] | (Primary Dx) | | | | ONCOLOGY [address] | [place] | | | | | [place], | [address] | | | | | [place] [address] | | | | | | [phone] | | | +--------+ + + + [...] Gentle rectal exam performed with presence of software applications architect. Rectal tone. Questionnaires: Are you having pain? [...] M.D. Radiation Oncologist Department of Radiation Oncology [facility] This note was transcribed using Hopscot.ch speech recognition software. As a result, there may be unintended for medical and/or spelling errors. Every attempt is made to correct dictati on. If there are any questions or errors please contact our office. donnell, Frida Thapa MD - 12/29/2014 12:00 AM PDTPATIENT: Fang MuhammadS:12/29/2014MR#: [id number]:1965 Radiation Oncology Follow-up Clinic Note ICD/Diagnosis: [...] Gentle rectal exam performed with presence of software applications architect. Rectal tone. Questionnaires: Are you having pain?YesWhere does it hurt most?skin on abdomen at opening of ostomy.Rate y our pain from 0-10: 0-10 scale with 0 = no pain and 10= worst [id number] your pain (quality) i.e. aching, s harp, [...] M.D. Radiation Oncologist Department of Radiation Oncology [facility] This note was transcribed using Hopscot.ch speech recognition software. As a result, there ma y be unintended for medical and/or spelling errors. Every attempt is made to correct dicta tion. If there are any questions or errors please contact our office. Page 1 of 3 CSN: [id number] signed by Frida Grossman MD at 12/31/2014 4:44 PM PDTd ocumented in this encounter Plan of Treatment Not on filedocumented as of this encounter Visit Diagnoses + + | Diagnosis | + + | Rectal cancer (HCC) - Primary Malignant neoplasm of rectum | + + documented in this encounter"
--- OUTSIDE RECORDS SUMMARY | ~2020-02-23 | XMS | Encounter Summary ---
Demographics + + + | Address | [address] [facility] | | | [place] [address] | + + + | Home Phone | | + + + | Preferred Language | Unknown | + + + | Marital Status | Single | + + + | Temple Affiliation | [id number] | + + + | Race | Unknown | + + + | Ethnic Group | Unknown | + + + Author + + + | Author | [facility] | | | and [place] | + + + | Organization | [facility] | | | [...] Team Providers + +------+ + | Care Tongue Stitcher Name | Role | Phone | + +------+ + | Kera Hernandez PA-C | PCP | | + +------+ + Encounter Details +--------+ + + + + | Date | Type | Department | Care Team | Description | +--------+ + + + + | 04/07/ | [facility] | [facility] | Wing Frank | Rectal cancer (HCC) | | 2018 | Encounter | [facility] | MD Casimiro [address] | (Primary Dx) | | | | ONCOLOGY CLINIC [address] | [address] | | | | | [address] | [place] [address] | | | | | [place] [address] | [phone] | | | | | [phone] | | | +--------+ + + + [...] + | [facility] | [address] | [place] | [phone] | | [facility] | | [address] | | | - LABORATORY | | [...] + | [facility] | [address] | [place] | [phone] | | [facility] | | [address] | | | - LABORATORY | | [...] | mL/min/1.73m2 | [facility] | | | GAMBIAN | RATE,ESTIMATED | | MEDICAL | | | | mL/min/1.82x0Mqyr than | | CENTER - | | [...] + | [facility] | [address] | [place], [place] | [phone] | | [facility] | | [address] | | | - LABORATORY | | [...] | | | | ng/mL | [facility] | | | | | | [...] [address] | [place] | [phone] | | [facility] | | [address] | | | - LABORATORY | | [...] [address] | [place] | [phone] | | [facility] | | [address] | | | - LABORATORY | | [...] | + + + + + | [facility] | [address] | [place] | [phone] | | [facility] | | [address] | | | - LABORATORY | | | | + + + + + documented in this encounter Visit Diagnoses + + | Diagnosis | + + | Rectal cancer (HCC) - Primary Malignant neoplasm of rectum | + + documented in this encounter"
--- OUTSIDE RECORDS SUMMARY | ~2020-02-23 | XMS | Encounter Summary ---
Demographics + + + | Address | [address] [facility] [address] | | | [place] [address] | + + + | Home Phone [...] + + + | Author | [facility] | | | and [place] | + + + | Organization | [facility] | | | [...] Team Providers + +------+ + | Care Supply Crib Attendant Name | Role | Phone | + +------+ + | Cindy Miramontes MD | PCP | | + +------+ + Encounter Details +--------+ + + + + | Date | Type | Department | Care Team | Description | +--------+ + + + + | 01/25/ | Documentati | [facility] | Iveth Botello | | | 2014 | on | [facility] PHARM[facility]Y | K, [facility] [address] | | | | | [address] [place] | [address] [place] | | | | | [place] [address] | [place] [address] | | | | | [phone] | [phone] | | | | | | | [...] of this encounter Progress Notes Iveth Botello, [facility] - 01/25/2015 1:40 PM PDT IDT PATIENT MEDICATION/PROFILE REVIEW [facility] CL[facility]ICAL PHARMACY SERVICES [...] Chemo being filled at no charge at [facility] in [place] Objective Data Fang Stephenson is a 49 [...] abdominal proctectomy, colo-anal anastamosis, Dr. Ronaldo Hess, [facility], Nov, with no histologically [...] Cancer," J Clin Oncol, 2011, 29(11):1465-71 Cricket Hya, Lizy C, et al, "XELOX (Capecitabine Plus [...]
--- OUTSIDE RECORDS SUMMARY | ~2020-02-23 | XMS | Encounter Summary ---
Demographics + + + | Address | [address] [facility] [address] | | | [place] [address] | + + + | Home Phone [...] Team Providers + +------+ + | Care Greens Laborer Name | Role | Phone | + +------+ + | Cindy Miramontes MD | PCP | | + +------+ + Encounter Details +--------+ + + + + | Date | Type | Department | Care Team | Description | +--------+ + + + + | 01/24/ | Documentati | [facility] | Tiera Oconnell, | | | 2014 | on | MED CTR PHARMACY | [facility] [address] | | | | | [address] [place] | [address] [place] | | | | | [place] [address] | [address] | | | | | [phone] | | | +--------+ + + + [...]
[~2020-02-23 20:53] MED LIST changes: +IBUPROFEN600 MG PO; +LOPERAMIDE2 MG PO; +MAPAP325 MG PO; +METAMUCIL660 GM PO; +OXYCODON-ACETA1 EAC2 PO
[2020-02-23] MEDS ORDERED: ANUSOL-HC30 GM PR (21:56)
== END 2020-02-23 22:04 | disposition home or self-care (01) ==
LOC: ED 20:53
DX: K64.4 Residual hemorrhoidal skin tags (principal); I10 Essential (primary) hypertension; E11.9 Type 2 diabetes mellitus without complications; Z91.040 Latex allergy status; Z88.8 Allergy status to other drugs, medicaments and biological substances; Z79.899 Other long term (current) drug therapy
CPT/HCPCS: 99282

== ENCOUNTER 2022-06-07 07:05 | Day surgery (SDC) | payer BC, OTHER ==
[~2022-06-07] VITALS: Ht 165.1 cm; Wt 94.8 kg
[~2022-06-07 07:05] MED LIST changes: +ANUSOL-HC30 GM PR; +BAYER CHEWABLE81 MG PO; +CRESTOR10 MG PO; +VITAMIN D250 MC1
[2022-06-07] MEDS ORDERED: XALATAN2.5 ML OU (07:34)
--- NOTE | 2022-06-07 09:00 | NUR ---
06/07/22 0900 Marilou Garay 0850-PATIENT ARRIVED TO PACU ON 2L NC RR EVEN LAYING LEFT LATERAL. IVF INFUSING. ABDOMEN SOFT. REACTIVE TO VERBAL STIMULI DENIES PAIN OR NAUSEA. 0855-GLUCOSE 115 0900-PATIENT SLEEPING RR EVEN 100% 2L NC PLACED ON RA.
--- NOTE | 2022-06-07 10:07 | OR ---
[facility] [address], [place] [address] Signed DATE OF OPERATION: 06/07/2022 SURGEON: Lilibeth Ohara MD PREOPERATIVE DIAGNOSES: 1. Stage II rectal cancer at 6-8 cm in 2013 at age 48. 2. Minimal diverticulosis. 3. Personal history of colonic polyps. 4. Hand-sewn coloanal anastomosis (10 mm). 5. Internal and external hemorrhoids. 6. Pruritus ani. POSTOPERATIVE DIAGNOSES: 1. Total colon length (85 cm). 2. 4 mm polyp at 65 cm. 3. Minimal left-sided diverticulosis. 4. Minimal internal and external hemorrhoids. 5. Minimal to moderate pruritus ani. 6. Coloanal anastomosis (10 mm). PROCEDURE: Colonoscopy with hot biopsy. ESTIMATED BLOOD LOSS: None. INDICATIONS: Bryanna is a 57-year-old obese diabetic female, who I diagnosed with stage II rectal cancer back in June 2014 at the age of 48. This proved to be a T3 N0 lesion. It was about 6-8 cm in from the anal verge. She also has minimal diverticulosis. She had an adenomatous polyp. She always does well with Versed and fentanyl. She ended up with a laparoscopic-assisted resection of the rectum. She has a hand-sewn coloanal anastomosis. The anastomosis is always slightly tied at about 10 mm. Multiple biopsies around that anastomosis have been negative over the years. She had her surgery in November [address] Ronaldo Tolbert. Seven lymph nodes were negative. She returned in July 2015 at the age of 49. Again, she always has a little diverticulosis in the anastomosis. I will admit my index finger of about 10 mm. She came in October 2016 at the age of 51. She had an adenomatous polyp at 35 cm and again minimal diverticulosis. She always has the internal and external hemorrhoids. She returned in November 2014 at the age of 52. Again, minimal internal and external hemorrhoids with the minimal Electronically Signed By: LILIBETH OHARA MD 06/07/22 1007 PATIENT NAME: BRYANNA MAC OPERATIVE REPORT DATE OF : 65 REPORT #: [id number] PHYSICIAN: LILIBETH OHARA MD PCP: BILL SUAREZ MD REPORT IS CONFIDENTIAL AND NOT TO BE RELEASED WITHOUT AUTHORIZATION [facility] [address], [place] [address] Signed diverticulosis. Again, the biopsies around the anastomosis were negative. She was having some rectal bleeding, so returned in September 2018 for repeat colonoscopy. Again, minimal internal and external hemorrhoids with the minimal diverticulosis. And again, biopsies were negative. We asked her to follow up in three years for repeat colonoscopy. She has had some trouble with pruritus ani. She prefers Aveeno colloid with good results. She also likes Calmoseptine cream. She is aware that Vaseline or Balneol lotion have worked as well. In the office, I had given her a brochure again on hemorrhoids as well as pruritus ani. We had covered that in detail. She also recalls colonoscopy quite well. She told me she is using Metamucil with good results. She likes tucks wipes as well. They generally contain and glycerin. She talked about what might be hernia above the suprapubic area. We could not palpate that today. No previous surgical scars in that area. We had ordered an ultrasound, but she never completed it. We did review colonoscopy. She understands there is risk including, but not limited to gas bloating, crampy abdominal pain, bleeding, perforation requiring surgery, and missed diagnosis. We also discussed the need for the IV conscious sedation. She had expressed understanding and wished to proceed. PROCEDURE NOTE: Bryanna was taken into our endoscopy suite and placed in the left lateral decubitus position. She was given 125 mcg of fentanyl and 7 mg of Versed to cover the case. Again, she has minimal to moderate pruritus ani. She is starting to develop some ridges around the anus with some granulation tissue. She has good sphincter tone. Minimal internal and external hemorrhoids. Again, the tip of my index finger will insert into the anastomosis, but to my entire index finger would not go through. Even with sedation, we were not able to dilate that with our index finger. The adult colonoscope just fits through. The scope passed quite readily up to the cecum itself. The total length of the colon is about 85 cm. The prep was quite good. We could easily see the appendiceal orifice and the ileocecal valve. The scope was then slowly withdrawn. We took a small polyp out at 65 cm with the hot biopsy forceps. Once again, she has minimal left-sided diverticulosis. They are moderate in size, few in number, and scattered about. The scope was withdrawn back through the anastomosis in her anal canal. Again, the anastomosis is well healed with no obvious concerns. We did not do any biopsies of the anastomosis on this occasion. After this, the gas had been suctioned out and the colonoscope removed. Bryanna tolerated the procedure quite well. RECOMMENDATIONS: I will see Bryanna back in my office in 7 to 14 days to review her results. She is going to need continued followup between three and five years. Electronically Signed By: LILIBETH OHARA MD 06/07/22 [facility] PATIENT NAME: BRYANNA MAC OPERATIVE REPORT DATE OF : 65 REPORT #: [id number] PHYSICIAN: LILIBETH OHARA MD PCP: BILL SUAREZ MD REPORT IS CONFIDENTIAL AND NOT TO BE RELEASED WITHOUT AUTHORIZATION [facility] [address] [place] [id number] Signed Lilibeth Ohara MD ALB/MODL /[id number] cc: [facility] MD Ronaldo Senior MD Copies: LILIBETH OHARA MD, MARK MD ~ Electronically Signed By: LILIBETH OHARA MD 06/07/22 1007 PATIENT NAME: BRYANNA MAC OPERATIVE REPORT DATE OF : 65 REPORT #: [id number] PHYSICIAN: LILIBETH OHARA MD PCP: BILL SUAREZ MD REPORT IS CONFIDENTIAL AND NOT TO BE RELEASED WITHOUT AUTHORIZATION
== END 2022-06-07 10:00 | disposition home or self-care (01) ==
LOC: OPS 07:05 → DS 07:05 → OPS 08:15 → DS 08:15 → OPS 10:00 → DS 06-08 08:15
PROVIDERS: ATTEND Colon & Rectal Surgery
PROC: 0DBE8ZX Excision of Large Intestine, Via Natural or Artificial Opening Endoscopic, Diagnostic (ICD-10-PCS; principal; 2022-06-07 08:15)
DX: K51.411 Inflammatory polyps of colon with rectal bleeding (principal); I10 Essential (primary) hypertension; E66.9 Obesity, unspecified; K21.9 Gastro-esophageal reflux disease without esophagitis; E11.42 Type 2 diabetes mellitus with diabetic polyneuropathy; E11.36 Type 2 diabetes mellitus with diabetic cataract; H25.13 Age-related nuclear cataract, bilateral; K64.0 First degree hemorrhoids; K57.30 Diverticulosis of large intestine without perforation or abscess without bleeding; K64.4 Residual hemorrhoidal skin tags; L29.0 Pruritus ani; Z68.34 Body mass index [BMI] 34.0-34.9, adult; Z85.048 Personal history of other malignant neoplasm of rectum, rectosigmoid junction, and anus; Z86.010 Personal history of colon polyps; Z79.84 Long term (current) use of oral hypoglycemic drugs; Z79.82 Long term (current) use of aspirin; Z88.8 Allergy status to other drugs, medicaments and biological substances
CPT/HCPCS: 99153; G0500; J2250; J3010; J7121

== ENCOUNTER 2022-06-28 15:15 | Emergency (ER) | payer OTHER, BC ==
[~2022-06-28] VITALS: Ht 165.1 cm; Wt 93.4 kg
[~2022-06-28 15:15] MED LIST changes: +XALATAN2.5 ML OU
== END 2022-06-28 23:17 | disposition short-term general hospital (02) ==
LOC: ED 15:15
DX: S72.402A Unspecified fracture of lower end of left femur, initial encounter for closed fracture (principal); I10 Essential (primary) hypertension; E11.9 Type 2 diabetes mellitus without complications; Z79.899 Other long term (current) drug therapy; Z88.8 Allergy status to other drugs, medicaments and biological substances; W01.0XXA Fall on same level from slipping, tripping and stumbling without subsequent striking against object, initial encounter
CPT/HCPCS: 36415; 51702; 70450; 71045; 73560; 80053; 81001; 85025; 87502; 99285-25; J1170; J2405; U0003